=== PATIENT | female | born 1975 | race Caucasian/White ===

== ENCOUNTER 2018-09-17 19:59 | Inpatient (IN) | payer MEDICAID, SELFPAY ==
[2018-09-17 20:04] VITALS: BP 120/76; PULSE 101; RESP 18; TEMP 35; O2SAT 96
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
[2018-09-17 20:32] LABS: Abs Immature Grans 0.03 k/cumm (0.0-0.09); HCT 39.4 % (36.0-46.0); HGB 12.3 g/dL (12.0-15.5); Mean Corp. HGB Concentration 31.2 g/dL (32.0-36.0); Mean Corpuscular Hemoglobin 23.9 pg (27.0-33.0); Mean Corpuscular Volume 76.5 fL (80-95); Platelet Count 359 x1000/uL (130-400); RBC 5.15 m/cumm (4.00-5.20); RBC Distribution Width 18.8 % (11.7-14.6); White Blood Cell Count 8.86 k/cumm (4.4-10.8)
[2018-09-17 20:49] LABS: ALT 37 U/L (12-78); AST 30 U/L (15-37); Albumin 3.6 g/dL (3.4-5.0); Alkaline Phosphatase 106 U/L (46-116); Anion Gap 12.9 mmol/L (3-11); BUN 14 mg/dL (7-18); Bilirubin, Total 0.3 mg/dL (0.2-1.0); CO2 25.1 mmol/L (21.0-32.0); CREATININE 1.04 mg/dL (0.55-1.02); Calcium 8.8 mg/dL (8.5-10.1); Chloride 104 mmol/L (98-107); Glucose 144 mg/dL (70-100); Sodium 142 mmol/L (136-145); TSH (W/Ref FT4) 3.27 uIU/mL (0.358-3.74)
[2018-09-17 20:51] LABS: Potassium 2.8 mmol/L (3.5-5.1)
[2018-09-17] MEDS: POTASSIUM CHLORIDE 20 MEQ/100 ML BAG 50 MEQ IVPB ×2 (21:08→23:09)
[2018-09-17] MEDS: diphenhydrAMINE 50 MG/ML VIAL 25 MG IVP (21:09)
[2018-09-17] MEDS: Potassium Chloride 10 MEQ TABCR 20 MEQ PO (21:09)
[2018-09-17 21:12] LABS: Absolute Eosinophil Count 0.09 k/cumm (0.0-0.7); Absolute Lymphocyte Count 2.57 k/cumm (1.2-3.4); Absolute Monocyte Count 0.18 k/cumm (0.11-0.7); Absolute Neutrophil Count 6.02 k/cumm (1.2-6.7); Atypical Lymphocytes % 4; Salicylate 4.5 mg/dL (2.8-20.0)
[2018-09-17 21:15] LABS: Diff Comment Manual Differential; RBC Morphology Normal
[2018-09-17] MEDS: Normal Saline 1,000 ML 150 ML IV (21:15)
[2018-09-17 21:17] LABS: ETHANOL BLOOD < 3.0 mg/dL (<3)
[2018-09-17 21:19] LABS: Acetaminophen < 2 ug/mL (10-30)
--- NOTE | 2018-09-17 22:19 | DI.CT_ITS ---
SYMPTOMS/DIAGNOSIS: ALTERED MENTATION NONCONTRAST HEAD CT: No intracranial hemorrhage, mass or infarct is seen. The ventricles are normal in size. There is mucosal thickening of ethmoid sinuses and some mucosal thickening within the left nasal cavity. The mastoid air cells appear clear. IMPRESSION: Sinus disease. No acute abnormality.
--- NOTE | 2018-09-17 22:23 | PDOC.ERCMPRO ---
Care Management Progress Note [facility] Participants: Jose; MARC, Estelle; NS, Jennyfer; [facility], Danielle; STEVEN. Date and time: 09/17/18@ 2150. INVOLUNTARY FOR INPATIENT PSYCHIATRIC STABILIZATION. Malu is presenting with behavior consistent with acute psychosis per MD-please refer to his note for further information. She is either confused or sedated when CM attempts to meet with her. She requires stimulation to open her eyes, she smiles and is pleasant. When asked if she knows how she arrived to [facility] she states [facility]? when asked to state where she is she reports confidently [place], and smiles. She reports feeling tired; CM agrees to engage with Malu in the morning and permits her to rest. Per chart review and [facility] report, Malu has no known MH services or previous diagnosis. Per MD report, Malu does struggle with depression and was recently prescribed new medication; Cymbalta. She will require ongoing work up including urine analysis, and head CT. Per RN: Jose, Malu presents as lacking nutrition for a few days which is consistent with her SO's report that she has been paranoid and delusional for the last few days and has remained in her room. She is currently being treated with IV and oral potassium replacement per Rosa TRAN. CM will continue to follow. Due to inability of patient engagement, safety plan has been established with care team, to adhere to patient goals, identify restrictions based on behavioral status, address nutrition, and determine allowed personal belongings, tools for hygiene and personal care. Determine level of activity including ambulation, level of supervision, visitors, and determine privileges based on behaviors and level of engagement by pt. SAFETY PLAN: 1. Will remain on suicide precautions and in Paper Clothes 2. Will remain in room under direct supervision of one-on-one staff at all times provided by JORDON, MARY senior cobol developer. 3. May have paper cups, plates, finger foods. 4. Follow [facility] Management of the Admitted Behavioral Health Patient policy. 5. Comfort bath system only. 6. No personal belongings 7. No Visitors-notably her SO Dakota has been directed not to visit at this time as per report, his presence has resulted in increased patient agitation. 8. No incoming or outgoing phone contact at this time. 9. Bathroom privileges: may use bathroom with staff escort. Placement: Per Dr. Prasons and Jennyfer of [facility], once Malu is deemed medically cleared, EE paperwork will be submitted. Malu is currently here involuntarily and is unable to meaningfully engage due to new onset of psychosis of unknown origin at this time. CM will continue to follow and support safety planning considerations as well as re-assess patient as appropriate. Patient is currently involuntarily at [facility] and will require further monitoring and assessment. [facility] Frontline Patrol Police Sergeant will continue seeking placement and supporting coordination of first and second certification. Please contact the Rn Plastic Surgery Rod Placer ([phone]) and [facility] Patrol Police Sergeant ([phone]) for any needed changes in the Safety Plan. Safety plan has been provided to interdepartmental care team including Clinical Coordinator, Nursing [employer].
--- NOTE | 2018-09-17 22:26 | DI.VRAD_ITS ---
EXAM: CT Head Without Contrast EXAM DATE/TIME: 09/17/2018 10:19 PM CLINICAL HISTORY: 42 years old, female; Signs and symptoms; Altered mental status/memory loss; Other: N/a; Patient HX: Altered mentation TECHNIQUE: Axial computed tomography images of the head/brain without contrast. All CT scans at this facility use at least one of these dose optimization techniques: automated exposure control; mA and/or kV adjustment per patient size (includes targeted exams where dose is matched to clinical indication); or iterative reconstruction. Coronal and sagittal reformatted images were created and reviewed. COMPARISON: No relevant prior studies available. FINDINGS: Brain: No hemorrhage. No significant white matter disease. No edema. Ventricles: No ventriculomegaly. Bones/joints: No acute fracture. Sinuses: Mild ethmoid sinus disease. Mastoid air cells: No mastoid effusion. Soft tissues: No suspicious lesions. IMPRESSION: 1. No acute intracranial findings. 2. Mild ethmoid sinus disease. Dictated and Authenticated by: Anupama Marques MD. Ordering:KELLY LAN MD
--- NOTE | 2018-09-17 22:39 | CMPROGNOTE_ITS ---
Care Management Progress Note [facility] Participants: Jose; MARC, Estelle; NS, Jennyfer; [facility], Danielle; STEVEN. Date and time: 09/17/18@ 2150. INVOLUNTARY FOR INPATIENT PSYCHIATRIC STABILIZATION. Malu is presenting with behavior consistent with acute psychosis per MD- please refer to his note for further information. She is either confused or sedated when CM attempts to meet with her. She requires stimulation to open her eyes, she smiles and is pleasant. When asked if she knows how she arrived to [facility] she states [facility]? when asked to state where she is she reports confidently [place], and smiles. She reports feeling tired; CM agrees to engage with Malu in the morning and permits her to rest. Per chart review and [facility] report, Malu has no known MH services or previous diagnosis. Per MD report, Malu does struggle with depression and was recently prescribed new medication; Cymbalta. She will require ongoing work up including urine analysis , and head CT. Per RN: Jose, Malu presents as lacking nutrition for a few days which is consistent with her SO's report that she has been paranoid and delusional for the last few days and has remained in her room. She is currently being treated with IV and oral potassium replacement per Rosa TRAN. CM will continue to follow. Due to inability of patient engagement, safety plan has been established with care team, to adhere to patient goals, identify restrictions based on behavioral status, address nutrition, and determine allowed personal belongings , tools for hygiene and personal care. Determine level of activity including ambulation, level of supervision, visitors, and determine privileges based on behaviors and level of engagement by pt. SAFETY PLAN: 1. Will remain on suicide precautions and in Paper Clothes 2. Will remain in room under direct supervision of one-on-one staff at all times provided by JORDON, MARY home performance laborer. 3. May have paper cups, plates, finger foods. 4. Follow [facility] Management of the Admitted Behavioral Health Patient policy. 5. Comfort bath system only. 6. No personal belongings 7. No Visitors-notably her SO Dakota has been directed not to visit at this time as per report, his presence has resulted in increased patient agitation. 8. No incoming or outgoing phone contact at this time. 9. Bathroom privileges: may use bathroom with staff escort. Placement: Per Dr. Parsons and Jennyfer of [facility], once Malu is deemed medically cleared, EE paperwork will be submitted. Malu is currently here involuntarily and is unable to meaningfully engage due to new onset of psychosis of unknown origin at this time. CM will continue to follow and support safety planning considerations as well as re-assess patient as appropriate. Patient is currently involuntarily at [facility] and will require further monitoring and assessment. [facility] Frontline Screen Handler will continue seeking placement and supporting coordination of first and second certification. Please contact the Coding Manager Sane Rn ([phone]) and [facility] Screen Handler ([phone]) for any needed changes in the Safety Plan. Safety plan has been provided to interdepartmental care team including Clinical Coordinator, Nursing Consultant Internship.
[2018-09-17 23:06] LABS: Bilirubin Small (Negative); Blood Negative (Negative); Clarity Sl Cloudy; Glucose Negative (Negative); Ketones 80 mg/dL (Negative); Leukocyte Esterase Negative (Negative); Nitrite Negative (Negative); Specific Gravity 1.025 (1.005-1.025); Urobilinogen 0.2 EU/dL (Up TO 0.2)
[2018-09-17 23:14] LABS: Bacteria Moderate HPF (Negative); C & S Indicated? No/Sq. Contamination; Casts Negative LPF (Negative); Crystals Moderate Amorphous HPF (Negative); Epithelial Cells Many HPF (Negative); Mucus Heavy (Negative)
--- NOTE | 2018-09-17 23:17 | NUR.NOTE ---
Nursing Note: Patient calm and cooperative throughout care. Pt. to CT with this process description writer with no issues. Patient up to bathroom without issue. Patient asking appropriate questions. --Jose TRAN
[2018-09-17 23:20] LABS: *AMPHETAMINES SCREEN URINE Negative (Negative); *BARBITURATES SCREEN URINE Negative (Negative); *BENZODIAZEPINES SCREEN URINE POSITIVE (Negative); Cannabinoids THC POSITIVE (Negative); Cocaine Screen,Urine Negative (Negative); METHADONE URINE SCREEN Negative (Negative); OPIATES URINE SCREEN Negative (Negative)
[2018-09-17 23:21] LABS: Tricyclic Antidepressants Negative (Negative)
--- NOTE | 2018-09-17 23:45 | PDOC.MHCN ---
Mental Health Crisis Note Presenting Issue How did you arrive at the ED and why did you come: Patient arrives at the ED via ambulance due to a possible psychotic episode. Precipitating Factors Patient denies SI/HI. She is confused, denies having children and reports living alone but she in fact lives with her 14 year old son and her boyfriend. She also denies any medical issues but hospital records show that she has asthma and a lung condition. Disposition BEHAVIOR: Cooperative. EYE CONTACT: Poor - keeps eyes closed through most of the evaluation. MOOD: Calm. AFFECT: Congruent to mood. APPETITE: Reports poor appetite - has not eaten in the past 24-hours due to locking herself in her bedroom and refusing to come out. SLEEP(trouble falling/staying asleep: Reports poor sleep. Plan Patient is placed on EE status due to her level of confusion. There are no psych beds available this evening. She will therefore remain at [facility] while [facility] continues to seek a placement.
--- NOTE | 2018-09-17 23:50 | PDOC.MHCN_ITS ---
Mental Health Crisis Note Presenting Issue How did you arrive at the ED and why did you come: Patient arrives at the ED via ambulance due to a possible psychotic episode. Precipitating Factors Patient denies SI/HI. She is confused, denies having children and reports living alone but she in fact lives with her 14 year old son and her boyfriend. She also denies any medical issues but hospital records show that she has asthma and a lung condition. Disposition BEHAVIOR: Cooperative. EYE CONTACT: Poor - keeps eyes closed through most of the evaluation. MOOD: Calm. AFFECT: Congruent to mood. APPETITE: Reports poor appetite - has not eaten in the past 24-hours due to locking herself in her bedroom and refusing to come out. SLEEP(trouble falling/staying asleep: Reports poor sleep. Plan Patient is placed on EE status due to her level of confusion. There are no psych beds available this evening. She will therefore remain at [facility] while [facility] continues to seek a placement.
[2018-09-18 00:39] VITALS: BP 113/80; PULSE 86; RESP 16; TEMP 36.7; O2SAT 95
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
[2018-09-18] MEDS: Enoxaparin 40 MG/0.4 ML SYR SC (02:21)
[2018-09-18 05:20] VITALS: BP 125/86; PULSE 76; RESP 16; TEMP 36.8; O2SAT 96
[2018-09-18 07:01] LABS: Abs Immature Grans 0.01 k/cumm (0.0-0.09); Absolute Basophil Count 0.03 k/cumm (0.0-0.2); Absolute Eosinophil Count 0.46 k/cumm (0.0-0.7); Absolute Lymphocyte Count 2.04 k/cumm (1.2-3.4); Absolute Monocyte Count 0.62 k/cumm (0.11-0.7); Absolute Neutrophil Count 2.94 k/cumm (1.2-6.7); Basophils % 0.5; Eosinophils % 7.5; HCT 37.4 % (36.0-46.0); HGB 11.3 g/dL (12.0-15.5); Immature Grans % 0.2; Lymphocytes % 33.4; Mean Corp. HGB Concentration 30.2 g/dL (32.0-36.0); Mean Corpuscular Hemoglobin 23.5 pg (27.0-33.0); Mean Corpuscular Volume 77.9 fL (80-95); Mean Platelet Volume 10.1 fL (8.0-11.0); Monocytes % 10.2; Neutrophils % 48.2; Platelet Count 343 x1000/uL (130-400); RBC Distribution Width 18.9 % (11.7-14.6)
[2018-09-18 07:21] LABS: Anion Gap 8.1 mmol/L (3-11); BUN 9 mg/dL (7-18); CO2 25.9 mmol/L (21.0-32.0); CREATININE 0.73 mg/dL (0.55-1.02); Calcium 8.1 mg/dL (8.5-10.1); Chloride 109 mmol/L (98-107); Glucose 146 mg/dL (70-100); Magnesium 1.8 mg/dL (1.8-2.4); Potassium 3.5 mmol/L (3.5-5.1); Sodium 143 mmol/L (136-145)
[2018-09-18 07:24] LABS: Anisocytosis 1+; Diff Comment RBC Morph Reviewed; Hypochromasia 2+; Microcytosis 1+
[2018-09-18 07:44] LABS: Hemoglobin A1C 6.7 % (4.5-6.2)
[2018-09-18 07:48] LABS: Folate 8.5 ng/mL (8.6-20.0); Vitamin B12 597 pg/mL (193-986)
--- NOTE | 2018-09-18 11:25 | NUR.NOTE ---
Nursing Note: 1120: pt has been interactive today with this RN. pt making good eye contact and is agreeable to speaking with RN. pt is alert/oriented x 3 during assessment. RN asks pt if she knows why she is in the hospital; pt states yes. RN asks pt if she would discuss it with the RN. pt withdraws from conversation. RN asks pt if she wants to talk about what brought her here, pt states no. pt declines breakfast this morning, pt is drinking fluids well. pt has IV with running fluids at this time. pt has allowed lab draws, is voiding independently. pt has cpso at the bedside. continue to monitor.
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
--- NOTE | 2018-09-18 12:22 | PDOC.CMPRO ---
Care Management Progress Note [facility] Participants: Isabella; MARC, Milagros; CONCEPCIÓN, Yaima; [facility], Junaid HARRIS. Date and time: 09/18/18@ 1115. INVOLUNTARY FOR INPATIENT PSYCHIATRIC STABILIZATION. Malu was pleasant in interaction but remains confused. When asked to verbalize her understanding of her admission, Malu responded with well, I guess I broke. She reports wanting to see her but giggles inappropriately for a period of time at the fact that she can not remember his name. She is pleasant in interaction and smiles often. She requests visitor approval for her and son; this is not in line with requests with other staff including [facility] crisis screener. She shared that she had been hospitalized before when she was [age] and discharged to a foster home managed through [facility]. Yaima of [facility] will follow up on this information. [facility] formerly reported no previous patient attachment. When asked, Malu reports enjoying music, and creating crafts with her hands as well as spending time outside. She is repeatedly unable to verbalize her 's name and finally reports his name as Adriel. And speaks in length about how much she loves his name. (His name is Dakota). Malu reports she does not drive and lives in [place]. She reports feeling better when asked. Safety plan has been established with care team, to adhere to patient goals, identify restrictions based on behavioral status, address nutrition, and determine allowed personal belongings, tools for hygiene and personal care. Determine level of activity including ambulation, level of supervision, visitors, and determine privileges based on behaviors and level of engagement by pt. SAFETY PLAN: 1. Will remain on suicide precautions and in Paper Clothes 2. Will remain in room under direct supervision of one-on-one staff at all times provided by JORDON, MARY humanities coordinator. 3. May have paper cups, plates, finger foods. 4. Follow [facility] Management of the Admitted Behavioral Health Patient policy. 5. Comfort bath system only. 6. No personal belongings 7. No Visitors-notably her SO Dakota has been directed not to visit at this time as per report, his presence has resulted in increased patient agitation. 8. No incoming or outgoing phone contact at this time. 9. Bathroom privileges: may use bathroom with staff escort. 10. Patient may have manipulatives to encourage regulation including stress ball, coloring materials (no sharps), and music at RN discretion. Placement: Updated clinicals faxed to [facility] Efficiency Expert, [facility]. Malu remains involuntarily as she is unable to meaningfully engage due to new onset of psychosis of unknown origin at this time. CM will continue to follow and support safety planning considerations as well as re-assess patient as appropriate. Patient is currently involuntarily at [facility] and will require further monitoring and assessment. [facility] Frontline Corporate Meeting Planner will continue seeking placement and supporting coordination of second certification. Please contact the [employer] Efficiency Expert ([phone]) and [facility] Corporate Meeting Planner ([phone]) for any needed changes in the Safety Plan. Safety plan has been provided to interdepartmental care team including Clinical Coordinator, Nursing Automotive Paint Technician.
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
--- NOTE | 2018-09-18 14:45 | CMPROGNOTE_ITS ---
Care Management Progress Note [facility] Participants: Isabella; MARC, Milagros; CONCEPCIÓN, Yaima; [facility], Junaid HARRIS. Date and time: 09/18/18@ 1115. INVOLUNTARY FOR INPATIENT PSYCHIATRIC STABILIZATION. Malu was pleasant in interaction but remains confused. When asked to verbalize her understanding of her admission, Malu responded with well, I guess I broke. She reports wanting to see her but giggles inappropriately for a period of time at the fact that she can not remember his name. She is pleasant in interaction and smiles often. She requests visitor approval for her and son; this is not in line with requests with other staff including [facility] crisis screener. She shared that she had been hospitalized before when she was [age] and discharged to a foster home managed through [facility] called [facility]. Yaima of [facility] will follow up on this information. [facility] formerly reported no previous patient attachment. When asked, Malu reports enjoying music, and creating crafts with her hands as well as spending time outside. She is repeatedly unable to verbalize her 's name and finally reports his name as Adriel. And speaks in length about how much she loves his name. (His name is Dakota). Malu reports she does not drive and lives in [place]. She reports feeling better when asked. Safety plan has been established with care team, to adhere to patient goals, identify restrictions based on behavioral status, address nutrition, and determine allowed personal belongings, tools for hygiene and personal care. Determine level of activity including ambulation, level of supervision, visitors , and determine privileges based on behaviors and level of engagement by pt. SAFETY PLAN: 1. Will remain on suicide precautions and in Paper Clothes 2. Will remain in room under direct supervision of one-on-one staff at all times provided by JORDON, MARY laborer airport maintenance. 3. May have paper cups, plates, finger foods. 4. Follow [facility] Management of the Admitted Behavioral Health Patient policy. 5. Comfort bath system only. 6. No personal belongings 7. No Visitors-notably her SO Dakota has been directed not to visit at this time as per report, his presence has resulted in increased patient agitation. 8. No incoming or outgoing phone contact at this time. 9. Bathroom privileges: may use bathroom with staff escort. 10. Patient may have manipulatives to encourage regulation including stress ball , coloring materials (no sharps), and music at RN discretion. Placement: Updated clinicals faxed to [facility] Laboratory Equipment Installer[facility]. Malu remains involuntarily as she is unable to meaningfully engage due to new onset of psychosis of unknown origin at this time. CM will continue to follow and support safety planning considerations as well as re-assess patient as appropriate. Patient is currently involuntarily at [facility] and will require further monitoring and assessment. [facility] Frontline Stretch Machine Operator will continue seeking placement and supporting coordination of second certification. Please contact the Boat Finisher Laboratory Equipment Installer ([phone]) and [facility] Stretch Machine Operator ([phone]) for any needed changes in the Safety Plan. Safety plan has been provided to interdepartmental care team including Clinical Coordinator, Nursing Master Plumber.
--- NOTE | 2018-09-18 14:51 | NUR.NOTE ---
N[facility]ing Note: [facility] sent H&P, radiology reports, ER notes per request via fax.
[2018-09-18 15:57] VITALS: BP 111/67; PULSE 96; RESP 17; TEMP 37.1; O2SAT 98
--- NOTE | 2018-09-18 18:34 | PDOC.CMPRO ---
Care Management Progress Note CM supported coordination and completion of 2nd Certification with [facility] Psychiatrist who reported she was approving 2nd Certification. Malu engaged well with the Psychiatrist and remains pleasantly confused. CM provided case pertinent information for review. CM provided 2nd Cert to Medical Artist and MH worker;
[2018-09-18 20:34] VITALS: BP 102/61; PULSE 96; RESP 18; TEMP 37.3; O2SAT 97
[2018-09-18 23:45] VITALS: BP 128/63; PULSE 82; RESP 20; TEMP 36.4; O2SAT 98
[2018-09-18] MEDS: Albuterol/Ipratropium 3 ML UPD VIAL UPD (23:45)
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
[2018-09-19 07:45] VITALS: BP 105/71; PULSE 85; RESP 16; TEMP 36.5; O2SAT 96
[2018-09-19 07:51] LABS: BUN 1 mg/dL (7-18); Calcium 8.5 mg/dL (8.5-10.1); Chloride 109 mmol/L (98-107); Glucose 112 mg/dL (70-100); Magnesium 1.7 mg/dL (1.8-2.4); Potassium 3.9 mmol/L (3.5-5.1); Sodium 144 mmol/L (136-145)
[2018-09-19] MEDS: Budesonide/Formoterol 160/4.5 6 GM 60 PUFF INH IH (07:52)
--- NOTE | 2018-09-19 09:09 | W.INMHPGNOTE ---
Date of service: 09/19/18 Time of Service: 09:09 Mental Health Crisis Note Presenting Issue How did you arrive at the ED and why did you come: Patient initially arrived at the emergency department as she was showing signs of mental health disturbances. Precipitating Factors Patient denies SI and HI. Patient does admit to audio hallucinations but states that she has not heard any recently. Patient is still denying having any children and denying having a significant other. She also still states that she lives alone with her two pets. Patient is requesting to have her glasses. Disposition BEHAVIOR: No abnormal behavior to report. The patient is laying on the hospital bed talking with this securities underwriter. Her voice is soft and monotone. EYE CONTACT: Patient makes an increased amount of eye contact from yesterdays assessment MOOD: Patient is much more responsive and is able to laugh with this securities underwriter. She is calm and cooperative. AFFECT: Appropriate for conversation APPETITE: Patient's breakfast appears to be half eaten this morning but she states that she is eating enough SLEEP(trouble falling/staying asleep: Patient states that she has been sleeping well Plan Patient will remain at the hospital on an involuntary status until an appropriate bed becomes available at a psychiatric treatment facility. Hospitals have been called: [facility] and [facility], and [place] are full, [place] is not able to accept an involuntary at this time, [place] currently has a bed available but another patient is set up to take that bed (Chantel said this securities underwriter will be called if this admission falls through). Signature Clinician's Name/Title: Yaima Barakat - [facility] Emergency Clinician
[2018-09-19] MEDS: Folic Acid 1 MG TAB PO (09:28)
[2018-09-19] MEDS: Magnesium Oxide 400 MG TAB 800 MG PO (09:28)
[2018-09-19] MEDS: Omeprazole 20 MG CAPCR 40 MG PO (09:28)
[2018-09-19] MEDS: Multivitamin TAB 1 TAB PO (09:28)
--- NOTE | 2018-09-19 09:39 | MHPN_ITS ---
Date of service: 09/19/18 Time of Service: 09:09 Mental Health Crisis Note Presenting Issue How did you arrive at the ED and why did you come: Patient initially arrived at the emergency department as she was showing signs of mental health disturbances. Precipitating Factors Patient denies SI and HI. Patient does admit to audio hallucinations but states that she has not heard any recently. Patient is still denying having any children and denying having a significant other. She also still states that she lives alone with her two pets. Patient is requesting to have her glasses. Disposition BEHAVIOR: No abnormal behavior to report. The patient is laying on the hospital bed talking with this auto service writer. Her voice is soft and monotone. EYE CONTACT: Patient makes an increased amount of eye contact from yesterdays assessment MOOD: Patient is much more responsive and is able to laugh with this auto service writer. She is calm and cooperative. AFFECT: Appropriate for conversation APPETITE: Patient's breakfast appears to be half eaten this morning but she states that she is eating enough SLEEP(trouble falling/staying asleep: Patient states that she has been sleeping well Plan Patient will remain at the hospital on an involuntary status until an appropriate bed becomes available at a psychiatric treatment facility. Hospitals have been called: [facility] and [facility], and [place] are full, [place] is not able to accept an involuntary at this time, [place] currently has a bed available but another patient is set up to take that bed (Chantel said this auto service writer will be called if this admission falls through). Signature Clinician's Name/Title: Yaima Barakat - [facility] Emergency Clinician
[2018-09-19 11:40] VITALS: BP 102/69; PULSE 84; RESP 17; TEMP 36.9; O2SAT 97
--- NOTE | 2018-09-19 11:49 | PHARADMIT ---
Addendum entered by Gertrude Pennington 09/26/18 15:45: VS okay, plt 310 spiriva handihaler changed to respimat yesterday possible bed openings today per [facility] note pt may be walked of EE status if she continues to be clear per CM note Original Note: Addendum entered by Gertrude Pennington 09/25/18 11:38: Patient remains here at [facility] until a bed is available at a psych facility VS okay, no labs no med changes so far today Original Note: Addendum entered by Gertrude Pennington 09/24/18 10:19: Patient remains here at [facility] until a bed is available at a psych facility pt appears to have some improvement in symptoms but still in need of psych eval and treatment per progress note VS okay, no labs no med changes so far today Original Note: Addendum entered by Gertrude Pennington 09/23/18 14:06: Patient remains here at [facility] until a bed is available at a psych facility BP-122/53 other VS okay, no labs no med changes so far today Original Note: Addendum entered by Kaylah Patten 09/22/18 12:29: Patient remains here at [facility] until a bed is available at [facility]. patient more clear about family members today mental health in to see pt this AM no med changes noted Awaiting placement. Original Note: Addendum entered by Maxwell Roldan III 09/21/18 11:21: Patient remains here at [facility] until a bed is available at [facility]. Patient unfamiliar with her living situation (denies children, partner, has both) VS-OK Plts-[id number] (on Lovenox) Awaiting placement. Original Note: Addendum entered by Kaylah Patten 09/20/18 12:39: Pharmacy Note Subjective involuntary for inpatient psychiatric stabilization Objective vs ok, Mag 1.7, Assessment IVF stopped, no psychiatric meds ordered at this time Plan waiting for placement Original Note: Admission Pharmacy Clinical Review Psychosis Code Status Full Code Current Weight 95.5 kg Renally Cleared and Narrow Therapeutic Index Meds Crcl ~69.83 mL/min current meds okay QTc Value / Action Taken n/a BP Control, Fever BP 105/71 afebrile Electrolytes reviewed Cl 109 mag 1.7 DVT Prophylaxis enoxaparin Opiate Usage / Scheduled Bowel Regimen Ordered no/prn Plt/SCr for Heparin / Enoxaparin plt 343 SCr 0.70 INR for Warfarin n/a H/H stable, WBC/Bands h/h 11.3/37.4 wbc 6.10 Antibiotic appropriateness n/a Cultures and Sensitivities n/a Surgical ABX d/c within 24 hr n/a DM control / Insulin Dosing BG 112 n/a Heart Failure (Check EF%) (KENYA's, B-Block, Diuretics) none IV to PO Switch n/a Home Meds Reviewed yes Home Meds Not Ordered breo ellipta (symbicort substituted for this), sertraline, triamcinolone spray Comments waiting for placement
--- NOTE | 2018-09-19 11:59 | PDOC.CMPRO ---
- If Service Date Differs Date of service: 09/19/18 Time of Service: 11:59 Care Management Progress Note [facility] Participants: Isabella; MARC, Yoly; Natacha TRAN CM; Nursing Cracking Machine Operator; Suzy; Tayler Reyes; CARIN. Date and time: 09/19/18@ 1115. INVOLUNTARY FOR INPATIENT PSYCHIATRIC STABILIZATION. Malu was pleasant in interaction and is making good eye contact. She was clear with her discussions regarding the safety plan, plans for treatment, and her medication history. Concerns had been raised regarding Malu's cymbalta prescription. She reports that her PCP, Brandee Fuchs, has started her on the medication in June but she stopped taking it in the end of July/early August due to it making it even harder for her to sleep. STEVEN spoke with Malu's daughter, Leanne, who reiterated this history. Malu reported that she slept well last night and is having no pain or discomfort. Malu's SO, Dakota, brought Malu's glasses to [facility] and they have since been delivered to Malu who is appreciative. Malu's behaviors have been appropriate with all staff as of this time. Safety plan has been established with care team, to adhere to patient goals, identify restrictions based on behavioral status, address nutrition, and determine allowed personal belongings, tools for hygiene, and personal care. Determine level of activity including ambulation, level of supervision, visitors, and determine privileges based on behaviors and level of engagement by patient. SAFETY PLAN: 1. Will remain on suicide precautions and in paper clothes 2. Will remain in room under direct supervision of one-on-one staff at all times provided by JORDON, MARY furniture and bedding inspector. 3. May have paper cups, plates, finger foods, and a spoon. 4. Follow [facility] Management of the Admitted Behavioral Health Patient policy. 5. Comfort bath system only. 6. No personal belongings with the exception of her eyeglasses. 7. No Visitors-notably her SO Dakota has been directed not to visit at this time as per report, his presence has resulted in increased patient agitation. 8. No incoming or outgoing phone contact at this time. 9. Bathroom privileges: may use bathroom with staff escort. 10. Patient may have manipulatives to encourage regulation including stress ball, coloring materials (no sharps), and music at RN discretion. Placement: updated clinicals faxed to [facility] per request. Malu remains involuntarily as she is unable to meaningfully engage due to new onset of psychosis of unknown origin at this time. CM will continue to follow and support safety planning considerations as well as re-assess patient as appropriate. Patient is currently involuntarily at [facility] and will require further monitoring and assessment. [facility] Frontline Websphere Architect will continue seeking placement and supporting coordination of second certification. Please contact the Private Branch Exchange Repairer Marketing Underwriter ([phone]) and [facility] Websphere Architect ([phone]) for any needed changes in the Safety Plan. Safety plan has been provided to interdepartmental care team including Clinical Coordinator, Nursing Cracking Machine Operator.
--- NOTE | 2018-09-19 12:08 | CMPROGNOTE_ITS ---
- If Service Date Differs Date of service: 09/19/18 Time of Service: 11:59 Care Management Progress Note Huddle Participants: Isabella; MARC, Yoly; Natacha TRAN CM; Nursing Electric Welder Helper; Suzy; Tayler Reyes; CARIN. Date and time: 09/19/18@ 1115. INVOLUNTARY FOR INPATIENT PSYCHIATRIC STABILIZATION. Malu was pleasant in interaction and is making good eye contact. She was clear with her discussions regarding the safety plan, plans for treatment, and her medication history. Concerns had been raised regarding Malu's cymbalta prescription. She reports that her PCP, Brandee Fuchs, has started her on the medication in June but she stopped taking it in the end of July/early August due to it making it even harder for her to sleep. STEVEN spoke with Malu's daughter, Leanne, who reiterated this history. Malu reported that she slept well last night and is having no pain or discomfort. Malu's SO, Dakota , brought Malu's glasses to [facility] and they have since been delivered to Malu who is appreciative. Malu's behaviors have been appropriate with all staff as of this time. Safety plan has been established with care team, to adhere to patient goals, identify restrictions based on behavioral status, address nutrition, and determine allowed personal belongings, tools for hygiene, and personal care. Determine level of activity including ambulation, level of supervision, visitors , and determine privileges based on behaviors and level of engagement by patient. SAFETY PLAN: 1. Will remain on suicide precautions and in paper clothes 2. Will remain in room under direct supervision of one-on-one staff at all times provided by JORDON, MARY sales performance manager. 3. May have paper cups, plates, finger foods, and a spoon. 4. Follow [facility] Management of the Admitted Behavioral Health Patient policy. 5. Comfort bath system only. 6. No personal belongings with the exception of her eyeglasses. 7. No Visitors-notably her SO Dakota has been directed not to visit at this time as per report, his presence has resulted in increased patient agitation. 8. No incoming or outgoing phone contact at this time. 9. Bathroom privileges: may use bathroom with staff escort. 10. Patient may have manipulatives to encourage regulation including stress ball , coloring materials (no sharps), and music at RN discretion. Placement: updated clinicals faxed to [facility] per request. Malu remains involuntarily as she is unable to meaningfully engage due to new onset of psychosis of unknown origin at this time. CM will continue to follow and support safety planning considerations as well as re-assess patient as appropriate. Patient is currently involuntarily at [facility] and will require further monitoring and assessment. [facility] Frontline Laminated Plastics Assembler And Gluer will continue seeking placement and supporting coordination of second certification. Please contact the Workers Compensation Claims Adjuster Business School Dean ([phone]) and [facility] Laminated Plastics Assembler And Gluer ([phone]) for any needed changes in the Safety Plan. Safety plan has been provided to interdepartmental care team including Clinical Coordinator, Nursing Electric Welder Helper.
--- NOTE | 2018-09-19 15:29 | CHAPLAIN ---
Malu was in bed when I visited. I introduced myself, explained my role and offered support. I let Malu know how to reach me through the nursing staff.
[2018-09-19 15:40] VITALS: BP 98/68; PULSE 78; RESP 20; TEMP 37; O2SAT 97
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
[2018-09-19] MEDS: Normal Saline Flush 10 ML SYR IVP ×3 (19:26→20:24)
[2018-09-19 19:49] VITALS: BP 103/69; PULSE 83; RESP 18; TEMP 37.3; O2SAT 97
[2018-09-19 23:37] VITALS: BP 115/69; PULSE 77; RESP 18; TEMP 36.6; O2SAT 97
[2018-09-20 03:46] VITALS: BP 108/63; PULSE 78; RESP 18; TEMP 36.8; O2SAT 98
[2018-09-20] MEDS: Albuterol 2.5 MG/3 ML INH SOLN VIAL UPD (05:57)
[2018-09-20 06:27] VITALS: RESP 1
[2018-09-20 07:35] LABS: Anion Gap 12.2 mmol/L (3-11); BUN 3 mg/dL (7-18); CO2 24.8 mmol/L (21.0-32.0); CREATININE 0.64 mg/dL (0.55-1.02); Calcium 8.5 mg/dL (8.5-10.1); Chloride 107 mmol/L (98-107); Glucose 117 mg/dL (70-100); Magnesium 1.7 mg/dL (1.8-2.4); Potassium 4.1 mmol/L (3.5-5.1); Sodium 144 mmol/L (136-145)
[2018-09-20 07:39] VITALS: BP 116/68; PULSE 74; RESP 16; TEMP 36.7; O2SAT 97
[2018-09-20] MEDS: Folic Acid 1 MG TAB PO (08:12)
[2018-09-20] MEDS: Multivitamin TAB 1 TAB PO (08:12)
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
--- NOTE | 2018-09-20 09:59 | PDOC.CMPRO ---
Care Management Progress Note Interdisciplinary Team: Isabella; MARC, Danielle; Natacha HARRIS; Nursing U.S. Representative; Alcira; NAEL, Yaima, [facility]. Date and time: 09/20/18@ 0930 INVOLUNTARY FOR INPATIENT PSYCHIATRIC STABILIZATION. Malu was sitting up in bed, freshly showered when CM met with her. She made good eye contact and communicated appropriately. Malu had the television off and shared that there was nothing that she Safety plan has been established with care team, to adhere to patient goals, identify restrictions based on behavioral status, address nutrition, and determine allowed personal belongings, tools for hygiene, and personal care. Determine level of activity including ambulation, level of supervision, visitors, and determine privileges based on behaviors and level of engagement by patient. SAFETY PLAN: 1. Will remain on suicide precautions and in paper clothes 2. Will remain in room under direct supervision of one-on-one staff at all times provided by JORDON, COMMISSIONS MANAGER making machine operator. 3. May have paper cups, plates, finger foods, and a metal spoon. 4. Follow [facility] Management of the Admitted Behavioral Health Patient policy. 5. May use shower room with staff escort. 6. No personal belongings with the exception of her eyeglasses. 7. No Visitors-notably her SO Dakota has been directed not to visit at this time as per report, his presence has resulted in increased patient agitation. 8. No incoming or outgoing phone contact at this time. 9. Patient may have manipulatives to encourage regulation including stress ball, coloring materials (no sharps), and music at RN discretion. She is also permitted television with remote. Placement: [facility]: Does not meet level one criteria, [facility]: No beds, [facility]: Updated referral sent, [facility]: Can't accomodate EE today, will call if this changes, [facility]: awaiting determination, [facility]: No beds Malu remains involuntarily as she is unable to meaningfully engage due to new onset of psychosis of unknown origin at this time. CM will continue to follow and support safety planning considerations as well as re-assess patient as appropriate. Patient is currently involuntarily at [facility] and will require further monitoring and assessment. [facility] Frontline Flyer Maker will continue seeking placement and supporting coordination of second certification. Please contact the Pediatric Oncology Nurse Supervisor Electronic Testing ([phone]) and [facility] Flyer Maker ([phone]) for any needed changes in the Safety Plan. Safety plan has been provided to interdepartmental care team including Clinical Coordinator, Nursing U.S. Representative.
--- NOTE | 2018-09-20 10:18 | CMPROGNOTE_ITS ---
Care Management Progress Note Interdisciplinary Team: Isabella; MARC, Danielle; Natacha HARRIS; Nursing Upset Operator; Alcira ; NAEL, Yaima, [facility]. Date and time: 09/20/18@ 0930 INVOLUNTARY FOR INPATIENT PSYCHIATRIC STABILIZATION. Malu was sitting up in bed, freshly showered when CM met with her. She made good eye contact and communicated appropriately. Malu had the television off and shared that there was nothing that she Safety plan has been established with care team, to adhere to patient goals, identify restrictions based on behavioral status, address nutrition, and determine allowed personal belongings, tools for hygiene, and personal care. Determine level of activity including ambulation, level of supervision, visitors , and determine privileges based on behaviors and level of engagement by patient. SAFETY PLAN: 1. Will remain on suicide precautions and in paper clothes 2. Will remain in room under direct supervision of one-on-one staff at all times provided by JORDON, COMPUTER APPLICATIONS ENGINEER informatics coordinator. 3. May have paper cups, plates, finger foods, and a metal spoon. 4. Follow [facility] Management of the Admitted Behavioral Health Patient policy. 5. May use shower room with staff escort. 6. No personal belongings with the exception of her eyeglasses. 7. No Visitors-notably her SO Dakota has been directed not to visit at this time as per report, his presence has resulted in increased patient agitation. 8. No incoming or outgoing phone contact at this time. 9. Patient may have manipulatives to encourage regulation including stress ball , coloring materials (no sharps), and music at RN discretion. She is also permitted television with remote. Placement: [facility]: Does not meet level one criteria, [facility]: No beds, [facility]: Updated referral sent, [facility]: Can't accomodate EE today, will call if this changes , [facility]: awaiting determination, [facility]: No beds Malu remains involuntarily as she is unable to meaningfully engage due to new onset of psychosis of unknown origin at this time. CM will continue to follow and support safety planning considerations as well as re-assess patient as appropriate. Patient is currently involuntarily at [facility] and will require further monitoring and assessment. [facility] Frontline Kindergarten Teacher Assistant will continue seeking placement and supporting coordination of second certification. Please contact the Mid Level Clinician Primer Charger ([phone]) and [facility] Kindergarten Teacher Assistant ([phone]) for any needed changes in the Safety Plan. Safety plan has been provided to interdepartmental care team including Clinical Coordinator, Nursing Upset Operator.
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
--- NOTE | 2018-09-20 14:29 | NUR.NOTE ---
Nursing Note: 1425: pt making good eye contact and conversation today. ambulating in room. pt eating better today in comparison to past two days. pt showered and is appreciative of this. pt remains in scrubs. pt voiding. pt moving about room ad mary. pt has 1:1 at this time. pt is enjoying watching tv and listening to music. pt agreeable to medications this am but does decline her prilosec and singulair stating I don't really think I need them today. pt states she is doing fine with not smoking at this time; pt declines the need for nicotine replacement. continue to monitor.
[2018-09-20 16:30] VITALS: BP 112/76; PULSE 67; RESP 18; TEMP 37.1; O2SAT 97
--- NOTE | 2018-09-20 18:47 | NUR.NOTE ---
Malu was sitting up in bed conversing with the prior nurse. She was not experiencing any anxiety at this time, state she like music and wanted to hear musics from [employer], same was played and patient was rocking to same. pt state she wanted to walk for this evening, same was done with sitter. STEVEN kenny patient a renetta.
[2018-09-20 19:37] VITALS: BP 126/86; PULSE 76; RESP 17; TEMP 37.6; O2SAT 96
[2018-09-20] MEDS: Magnesium Oxide 400 MG TAB PO (20:25)
[2018-09-20] MEDS: Budesonide/Formoterol 160/4.5 6 GM 60 PUFF INH IH (20:25)
[2018-09-20] MEDS: Albuterol/Ipratropium 3 ML UPD VIAL UPD (20:27)
[2018-09-20 20:57] VITALS: RESP 1
[2018-09-21 02:30] VITALS: BP 107/67; PULSE 71; RESP 18; TEMP 36.6; O2SAT 96
[2018-09-21 07:20] LABS: Platelet Count 321 x1000/uL (130-400)
[2018-09-21 08:33] VITALS: BP 108/73; PULSE 81; RESP 16; TEMP 36.2; O2SAT 95
[2018-09-21] MEDS: Folic Acid 1 MG TAB PO (09:28)
[2018-09-21] MEDS: Magnesium Oxide 400 MG TAB PO ×2 (09:28→19:55)
[2018-09-21] MEDS: Multivitamin TAB 1 TAB PO (09:28)
--- NOTE | 2018-09-21 11:01 | W.INMHPGNOTE ---
Date of service: 09/21/18 Time of Service: 11:01 Mental Health Crisis Note Presenting Issue How did you arrive at the ED and why did you come: Patient initially arrived at the emergency department for disturbances in mental health. Precipitating Factors Patient is denying both SI and HI at this time. However, the patient's cognition is impaired as she denies having any children and having a significant other. These statements are not accurate as it was confirmed that she has two biologial children and a live in boyfriend for the last 3-4 years. Patient identifies having two pets and she states that she feels like family is taking care of them. When asked more about her family she denies knowing where or who they are. Today the patient identified a a man by the name of Duc Epps. She states that he is helping her financially but does not live with her. She states that she thinks he is a friend. Disposition BEHAVIOR: No abnormal behavior to report EYE CONTACT: Good and appropriate MOOD: Calm and cooperative AFFECT: Broad APPETITE: Good SLEEP(trouble falling/staying asleep: Good Plan Patient will remain at the hospital on an involuntary status until an appropriate bed becomes available at a psychiatric treatment facility. All facilities are full at this time except [facility] but they stated that they cannot accept an involuntary at this time. Signature Clinician's Name/Title: Yaima Barakat - [facility] Emergency Clinician
--- NOTE | 2018-09-21 11:19 | MHPN_ITS ---
Date of service: 09/21/18 Time of Service: 11:01 Mental Health Crisis Note Presenting Issue How did you arrive at the ED and why did you come: Patient initially arrived at the emergency department for disturbances in mental health. Precipitating Factors Patient is denying both SI and HI at this time. However, the patient's cognition is impaired as she denies having any children and having a significant other. These statements are not accurate as it was confirmed that she has two biologial children and a live in boyfriend for the last 3-4 years. Patient identifies having two pets and she states that she feels like family is taking care of them. When asked more about her family she denies knowing where or who they are. Today the patient identified a a man by the name of Duc Epps. She states that he is helping her financially but does not live with her. She states that she thinks he is a friend. Disposition BEHAVIOR: No abnormal behavior to report EYE CONTACT: Good and appropriate MOOD: Calm and cooperative AFFECT: Broad APPETITE: Good SLEEP(trouble falling/staying asleep: Good Plan Patient will remain at the hospital on an involuntary status until an appropriate bed becomes available at a psychiatric treatment facility. All fa cilities are full at this time except [facility] but they stated that they cannot accept an involuntary at this time. Signature Clinician's Name/Title: Yaima Barakat - [facility] Emergency Clinician
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
--- NOTE | 2018-09-21 12:13 | PDOC.CMPRO ---
Care Management Progress Note Interdisciplinary Team: Bijan; MARC, Danielle; Milagros HARRIS; Nursing Crm Coordinator; Tayler; NAEL, Yaima, [facility]. Date and time: 09/21/18@ 1120 INVOLUNTARY FOR INPATIENT PSYCHIATRIC STABILIZATION. Malu remains pleasant and calm as well as appropriate in interaction. She continues to clear. Safety plan has been established with care team, to adhere to patient goals, identify restrictions based on behavioral status, address nutrition, and determine allowed personal belongings, tools for hygiene, and personal care. Determine level of activity including ambulation, level of supervision, visitors, and determine privileges based on behaviors and level of engagement by patient. SAFETY PLAN: 1. Will remain on suicide precautions and in paper clothes 2. Will remain in room under direct supervision of one-on-one staff at all times provided by JORDON, MARY cork insulator helper. 3. May have paper cups, plates, finger foods, and a metal spoon. 4. Follow [facility] Management of the Admitted Behavioral Health Patient policy. 5. May use shower room with staff escort. 6. No personal belongings with the exception of her eyeglasses. 7. No Visitors-notably her SO Dakota has been directed not to visit at this time as per report, his presence has resulted in increased patient agitation. 8. No incoming or outgoing phone contact at this time. 9. Patient may have manipulatives to encourage regulation including stress ball, coloring materials (no sharps), and music at RN discretion. She is also permitted television with remote. 10. Patient may ambulate outside of room; on MED/SURG with staff escort. 11. [facility] Candace permitted in room for use of music; to be in possession of CPSO/one-on-one staff at all times. Placement: No bed availability reported by Yaima of [facility]. Malu remains involuntarily per [facility] assessment. She is still unable to correctly identify her circumstances prior to admission including her family members. Patient is currently involuntarily at [facility] and will require further monitoring and assessment. [facility] Frontline Cotton Expert will continue seeking placement and supporting coordination of second certification. Please contact the [employer] Binder Coverer Desktop Specialist ([phone]) and [facility] Cotton Expert ([phone]) for any needed changes in the Safety Plan. Safety plan has been provided to interdepartmental care team including Clinical Coordinator, Nursing Crm Coordinator.
--- NOTE | 2018-09-21 12:40 | CMPROGNOTE_ITS ---
Care Management Progress Note Interdisciplinary Team: Bijan; MARC, Danielle; Milagros HARRIS; Nursing Slag Dumper; Tayler; NAEL, Yaima, [facility]. Date and time: 09/21/18@ 1120 INVOLUNTARY FOR INPATIENT PSYCHIATRIC STABILIZATION. Malu remains pleasant and calm as well as appropriate in interaction. She continues to clear. Safety plan has been established with care team, to adhere to patient goals, identify restrictions based on behavioral status, address nutrition, and determine allowed personal belongings, tools for hygiene, and personal care. Determine level of activity including ambulation, level of supervision, visitors, and determine privileges based on behaviors and level of engagement by patient. SAFETY PLAN: 1. Will remain on suicide precautions and in paper clothes 2. Will remain in room under direct supervision of one-on-one staff at all times provided by JORDON, MARY greenhouse instructor. 3. May have paper cups, plates, finger foods, and a metal spoon. 4. Follow [facility] Management of the Admitted Behavioral Health Patient policy. 5. May use shower room with staff escort. 6. No personal belongings with the exception of her eyeglasses. 7. No Visitors-notably her SO Dakota has been directed not to visit at this time as per report, his presence has resulted in increased patient agitation. 8. No incoming or outgoing phone contact at this time. 9. Patient may have manipulatives to encourage regulation including stress ball, coloring materials (no sharps), and music at RN discretion. She is also permitted television with remote. 10. Patient may ambulate outside of room; on MED/SURG with staff escort. 11. [facility] Candace permitted in room for use of music; to be in possession of CPSO/one-on-one staff at all times. Placement: No bed availability reported by Yaima of [facility]. Malu remains involuntarily per [facility] assessment. She is still unable to correctly identify her circumstances prior to admission including her family members. Patient is currently involuntarily at [facility] and will require further monitoring and assessment. [facility] Frontline Agronomy Teacher will continue seeking placement and supporting coordination of second certification. Please contact the Shipping Packer Automobile Body Worker ([phone]) and [facility] Agronomy Teacher ([phone]) for any needed changes in the Safety Plan. Safety plan has been provided to interdepartmental care team including Clinical Coordinator, Nursing Slag Dumper.
[2018-09-21 12:55] VITALS: BP 115/78; PULSE 70; RESP 16; TEMP 36.8; O2SAT 96
--- NOTE | 2018-09-21 15:17 | NUR.NOTE ---
Nursing Note: Patient states she lives alone in [place], no mention of family or SO. She is pleasant and cooperative. Picks and chooses the meds she receives. She is still being monitored with a safety care plan in place.
[2018-09-21 15:52] VITALS: BP 136/84; PULSE 64; RESP 18; TEMP 37.3; O2SAT 97
--- NOTE | 2018-09-21 17:49 | NUR.NOTE ---
Nursing Note: Patient had a monitored visitation from her adult daughter this evening. This was reported to have went well as the patient did recognize the young lady as her daughter. the visit was about 35 minutes and was pleasant the entire time. Proposed next step as proposed by the counselor from is for patient and daughter to have phone calls. I suggested he talk to case management tomorrow
[2018-09-21 19:30] VITALS: BP 121/72; PULSE 69; RESP 18; TEMP 36.8; O2SAT 97
[2018-09-21 23:34] VITALS: RESP 18; RESP 4; O2SAT 95
[2018-09-21] MEDS: Albuterol/Ipratropium 3 ML UPD VIAL UPD (23:34)
[2018-09-22] VITALS (7 sets, daily range): BP systolic 114–135; BP diastolic 70–88; PULSE 57–77; RESP 8–19; TEMP 36.3–36.9; O2SAT 96–100
--- NOTE | 2018-09-22 04:45 | NUR.NOTE ---
Nursing Note: 7P to 7A shift: Pt is AO x 3., playing cards with cadre. Copperative on nursing assessment. Refused to take puffer as scheduled at HS. At 23;35 hrs. requested to have updraft. Duoneb PRN administered, Lung sounds with wheeziness on left side posterior lobe.Rechecked after treatment was diminished throughout.Pt has occasional cough and Education provided for puffer use but has poor insight. Will follow up with RT. Call lights at reach.
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
[2018-09-22] MEDS: Budesonide/Formoterol 160/4.5 6 GM 60 PUFF INH IH ×2 (09:33→19:47)
[2018-09-22] MEDS: Multivitamin TAB 1 TAB PO (09:34)
[2018-09-22] MEDS: Magnesium Oxide 400 MG TAB PO ×2 (09:34→19:46)
[2018-09-22] MEDS: Folic Acid 1 MG TAB PO (09:34)
[2018-09-22] MEDS: Montelukast 10 MG TAB PO (09:35)
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
--- NOTE | 2018-09-22 17:17 | PDOC.CMPRO ---
Care Management Progress Note Interdisciplinary Team: Bijan; RN, Danielle; Milagros HARRIS; Nursing Nutritional Assistant; Tayler; NAEL, Yaima, DENNIS. Date and time: 09/22/18@ 1120 INVOLUNTARY FOR INPATIENT PSYCHIATRIC STABILIZATION. Malu was able to verbalize feeling uncomfortable with male patient observer and plan to use restroom. CM encouraged her self advocacy and communicated Malu's needs with the team. When Malu reports she needs to use the restroom, male staff will switch out with female staff and the door to Malu's room will be shut. Malu will use toilet behind curtain with female staff inside room with her. Malu was agreeable to this plan. She processed feeling triggered with having to plan around bathroom use and having males on the other side of the curtain. Malu ambulated through the hallways, was appropriate in interaction throughout the day and verbalized her needs appropriately. Safety plan has been established with care team, to adhere to patient goals, identify restrictions based on behavioral status, address nutrition, and determine allowed personal belongings, tools for hygiene, and personal care. Determine level of activity including ambulation, level of supervision, visitors, and determine privileges based on behaviors and level of engagement by patient. SAFETY PLAN: 1. Will remain on suicide precautions and in paper clothes 2. Will remain in room under direct supervision of one-on-one staff at all times provided by JORDON, MARY american history teacher. 3. May have paper cups, plates, finger foods, and a metal spoon. 4. Follow [facility] Management of the Admitted Behavioral Health Patient policy. 5. May use shower room with staff escort. 6. No personal belongings with the exception of her eyeglasses. 7. No Visitors-notably her SO Dakota has been directed not to visit at this time as per report, his presence has resulted in increased patient agitation. 8. No incoming or outgoing phone contact at this time. 9. Patient may have manipulatives to encourage regulation including stress ball, coloring materials (no sharps), and music at RN discretion. She is also permitted television with remote. 10. Patient may ambulate outside of room; on MED/SURG with staff escort. 11. [facility] Candace permitted in room for use of music; to be in possession of CPSO/one-on-one staff at all times. 12. Incoming phone calls from daughter/friend Leanne permitted at RN discretion. Placement: No bed availability reported by Yaima of [facility]. CM spoke with Ayah Rodrigez; [facility] Building Maintenance Custodian who reported EE beds at [facility] due to MD shortage at currently. Ayah requested CM fax referral to [facility] which was completed. Malu remains involuntarily per [facility] assessment. She is still unable to correctly identify her circumstances prior to admission including her family members. Patient is currently involuntarily at [facility] and will require further monitoring and assessment. [facility] Frontline [employer] will continue seeking placement and supporting coordination of second certification. Please contact the Rehab Nurse Building Maintenance Custodian ([phone]) and [facility] Drafter Construction ([phone]) for any needed changes in the Safety Plan. Safety plan has been provided to interdepartmental care team including Clinical Coordinator, Nursing Nutritional Assistant.
--- NOTE | 2018-09-22 17:22 | CMPROGNOTE_ITS ---
Care Management Progress Note Interdisciplinary Team: Bijan; RN, Danielle; Milagros HARRIS; Nursing Rim Turning Finisher; Tayler; NAEL, Yaima, DENNIS. Date and time: 09/22/18@ 1120 INVOLUNTARY FOR INPATIENT PSYCHIATRIC STABILIZATION. Malu was able to verbalize feeling uncomfortable with male patient observer and plan to use restroom. CM encouraged her self advocacy and communicated Malu's needs with the team. When Malu reports she needs to use the restroom, male staff will switch out with female staff and the door to Malu's room will be shut. Malu will use toilet behind curtain with female staff inside room with her. Malu was agreeable to this plan. She processed feeling triggered with having to plan around bathroom use and having males on the other side of the curtain. Malu ambulated through the hallways, was appropriate in interaction throughout the day and verbalized her needs appropriately. Safety plan has been established with care team, to adhere to patient goals, identify restrictions based on behavioral status, address nutrition, and determine allowed personal belongings, tools for hygiene, and personal care. Determine level of activity including ambulation, level of supervision, visitors, and determine privileges based on behaviors and level of engagement by patient. SAFETY PLAN: 1. Will remain on suicide precautions and in paper clothes 2. Will remain in room under direct supervision of one-on-one staff at all times provided by JORDON, MARY towel sorter. 3. May have paper cups, plates, finger foods, and a metal spoon. 4. Follow [facility] Management of the Admitted Behavioral Health Patient policy. 5. May use shower room with staff escort. 6. No personal belongings with the exception of her eyeglasses. 7. No Visitors-notably her SO Dakota has been directed not to visit at this time as per report, his presence has resulted in increased patient agitation. 8. No incoming or outgoing phone contact at this time. 9. Patient may have manipulatives to encourage regulation including stress ball, coloring materials (no sharps), and music at RN discretion. She is also permitted television with remote. 10. Patient may ambulate outside of room; on MED/SURG with staff escort. 11. [facility] Candace permitted in room for use of music; to be in possession of CPSO/one-on-one staff at all times. 12. Incoming phone calls from daughter/friend Leanne permitted at RN discretion. Placement: No bed availability reported by Yaima of [facility]. CM spoke with Ayah Rodrigez; [facility] Motor Vehicle Technician who reported EE beds at [facility] due to MD shortage at currently. Ayah requested CM fax referral to [facility] which was completed. Malu remains involuntarily per [facility] assessment. She is still unable to correctly identify her circumstances prior to admission including her family members. Patient is currently involuntarily at [facility] and will require further monitoring and assessment. [facility] Frontline Director Of Business Services will continue seeking placement and supporting coordination of second certification. Please contact the Child Nutrition Director Motor Vehicle Technician ([phone]) and [facility] Director Of Business Services ([phone]) for any needed changes in the Safety Plan. Safety plan has been provided to interdepartmental care team including Clinical Coordinator, Nursing Rim Turning Finisher.
[2018-09-23 03:19] VITALS: BP 110/77; PULSE 69; RESP 18; TEMP 36.7; O2SAT 98
[2018-09-23] MEDS: Magnesium Oxide 400 MG TAB PO ×2 (07:55→19:47)
[2018-09-23] MEDS: Folic Acid 1 MG TAB PO (07:55)
[2018-09-23] MEDS: Montelukast 10 MG TAB PO (07:55)
[2018-09-23] MEDS: Multivitamin TAB 1 TAB PO (07:55)
[2018-09-23] MEDS: Budesonide/Formoterol 160/4.5 6 GM 60 PUFF INH IH ×2 (09:04→19:47)
[2018-09-23 09:23] VITALS: BP 122/53; PULSE 74; RESP 15; TEMP 36.6; O2SAT 98
--- NOTE | 2018-09-23 12:35 | PDOC.CMPRO ---
Care Management Progress Note Interdisciplinary Team: Bijan; MARC; Tiara; STEVEN; Natacha, Nursing Creative Director; Tayler; NAEL; Yaima, [facility]; Dakota, CPSO Date and time: 09/23/18@ 1315 INVOLUNTARY FOR INPATIENT PSYCHIATRIC STABILIZATION. Malu was able to again verbalize feeling uncomfortable with male patient observer and plan to use restroom. Malu articulated that she was uncomfortable to have him even outside of the room. [facility] Fitter Mechanic revisited and confirmed that Malu was firm in her statement and started crying. If we do have any male CPSO staff assigned when Malu reports she needs to use the restroom, male staff will switch out with female staff and the door to Malu's room will be shut. Malu will use toilet behind curtain with female staff inside room with her. Malu was agreeable to this plan. She had processed feeling triggered with having to plan around bathroom use and having males on the other side of the curtain but has not been able to come to terms with her feelings. Interactions throughout the day were appropriate and she verbalized her needs. In regards to the one CPSO she simply sated it is what it is and I'mnot comfortable. Staff was reassigned.. Safety plan has been established with care team, to adhere to patient goals, identify restrictions based on behavioral status, address nutrition, and determine allowed personal belongings, tools for hygiene, and personal care. Determine level of activity including ambulation, level of supervision, visitors, and determine privileges based on behaviors and level of engagement by patient. SAFETY PLAN: 1. Will remain on suicide precautions and in paper clothes 2. Will remain in room under direct supervision of CPSO one-on-one staff at all times provided by JORDON, HYPERION ADMINISTRATOR porcelain enameling supervisor. 3. May have paper cups, plates, finger foods, and a metal spoon. 4. Follow [facility] Management of the Admitted Behavioral Health Patient policy. 5. May use shower room with staff escort. 6. No personal belongings with the exception of her eyeglasses. 7. Supervised visitation with daughter (sometimes referred to as her friend) Leanne permitted at RN discretion. [facility] Fitter Mechanic will coordinate and supervise the visit. 8. Significant Other, Dakota, has been directed not to visit at this time. His presence has resulted in increased patient agitation. 9. Patient may have manipulatives to encourage regulation including stress ball, coloring materials (no sharps), and music at RN discretion. She is also permitted television with remote. 10. Patient may ambulate outside of room; on MED/SURG with staff escort. 11. [facility] Candace permitted in room for use of music; to be in possession of CPSO/one-on-one staff at all times. 12. Incoming phone calls from daughter (sometimes referred to as her friend) Leanne permitted at RN discretion. No other incoming or outgoing calls/contact at this time. Limit calls to twice per day. Placement: No bed availability reported by Yaima of [facility]. Malu remains involuntarily per [facility] assessment. She is still unable to completely identify her circumstances prior to admission but has been improving and now remembers her daughter, Leanne. Patient is currently involuntarily at [facility] and will require further monitoring and assessment. [facility] Frontline Fitter Mechanic will continue seeking placement and supporting coordination of second certification. Please contact the Engine Tester Professional Skater ([phone]) and [facility] Fitter Mechanic ([phone]) for any needed changes in the Safety Plan. Safety plan has been provided to interdepartmental care team including Clinical Coordinator, Nursing Creative Director.
--- NOTE | 2018-09-23 12:55 | W.INMHPGNOTE ---
Date of service: 09/23/18 Time of Service: 12:55 Mental Health Crisis Note Presenting Issue How did you arrive at the ED and why did you come: Patient initially arrived at the emergency department via ambulance for disturbances in mental health. Precipitating Factors Patient is denying both SI and HI at this time. Once the patient was alone with this keno writer, she was able to express her concern about the individual that is scheduled to be her CPSO. Patient states that she feels uncomfortable with him being her sitter. Patient states that other than that she is doing well. She states that she feels safe. Disposition BEHAVIOR: No abnormal behavior to report EYE CONTACT: Patient makes good and direct eye contact MOOD: Patient is concerned AFFECT: Appropriate for conversation APPETITE: Good SLEEP(trouble falling/staying asleep: Patient states she woke up around 0300 due to her room being hot. She states that other than that she has been sleeping well and not taking naps during the day. Plan Patient will remain at the hospital on an involuntary status until a bed becomes available at an appropriate mental health treatment facility. Currently all mental health facilities are full. Signature Clinician's Name/Title: Yaima Barakat - [facility] Emergency Clinician
--- NOTE | 2018-09-23 13:04 | MHPN_ITS ---
Date of service: 09/23/18 Time of Service: 12:55 Mental Health Crisis Note Presenting Issue How did you arrive at the ED and why did you come: Patient initially arrived at the emergency department via ambulance for disturbances in mental health. Precipitating Factors Patient is denying both SI and HI at this time. Once the patient was alone with this writer technical publications, she was able to express her concern about the individual that is scheduled to be her CPSO. Patient states that she feels uncomfortable with him being her sitter. Patient states that other than that she is doing well. She states that she feels safe. Disposition BEHAVIOR: No abnormal behavior to report EYE CONTACT: Patient makes good and direct eye contact MOOD: Patient is concerned AFFECT: Appropriate for conversation APPETITE: Good SLEEP(trouble falling/staying asleep: Patient states she woke up around 0300 due to her room being hot. She states that other than that she has been sleeping well and not taking naps during the day. Plan Patient will remain at the hospital on an involuntary status until a bed becomes available at an appropriate mental health treatment facility. Currently all mental health facilities are full. Signature Clinician's Name/Title: Yaima Barakat - [facility] Emergency Clinician
--- NOTE | 2018-09-23 13:50 | CMPROGNOTE_ITS ---
Care Management Progress Note Interdisciplinary Team: Bijan; MARC; Tiara; STEVEN; Natacha, Nursing Charge Manager; Tayler; NAEL; Yaima, [facility]; Dakota, CPSO Date and time: 09/23/18@ 1315 INVOLUNTARY FOR INPATIENT PSYCHIATRIC STABILIZATION. Malu was able to again verbalize feeling uncomfortable with male patient observer and plan to use restroom. Malu articulated that she was uncomfortable to have him even outside of the room. [facility] Car Repairer Pullman revisited and confirmed that Malu was firm in her statement and started crying. If we do have any male CPSO staff assigned when Malu reports she needs to use the restroom, male staff will switch out with female staff and the door to Malu's room will be shut. Malu will use toilet behind curtain with female staff inside room with her. Malu was agreeable to this plan. She had processed feeling triggered with having to plan around bathroom use and having males on the other side of the curtain but has not been able to come to terms with her feelings. Interactions throughout the day were appropriate and she verbalized her needs. In regards to the one CPSO she simply sated it is what it is and I'mnot comfortable. Staff was reassigned.. Safety plan has been established with care team, to adhere to patient goals, identify restrictions based on behavioral status, address nutrition, and determine allowed personal belongings, tools for hygiene, and personal care. Determine level of activity including ambulation, level of supervision, visitors, and determine privileges based on behaviors and level of engagement by patient. SAFETY PLAN: 1. Will remain on suicide precautions and in paper clothes 2. Will remain in room under direct supervision of CPSO one-on-one staff at all times provided by JORDON, INTENSIVE CARE UNIT NURSE work from home. 3. May have paper cups, plates, finger foods, and a metal spoon. 4. Follow [facility] Management of the Admitted Behavioral Health Patient policy. 5. May use shower room with staff escort. 6. No personal belongings with the exception of her eyeglasses. 7. Supervised visitation with daughter (sometimes referred to as her friend) Leanne permitted at RN discretion. [facility] Car Repairer Pullman will coordinate and supervise the visit. 8. Significant Other, Dakota, has been directed not to visit at this time. His presence has resulted in increased patient agitation. 9. Patient may have manipulatives to encourage regulation including stress ball, coloring materials (no sharps), and music at RN discretion. She is also permitted television with remote. 10. Patient may ambulate outside of room; on MED/SURG with staff escort. 11. [facility] Candace permitted in room for use of music; to be in possession of CPSO/one-on-one staff at all times. 12. Incoming phone calls from daughter (sometimes referred to as her friend) Leanne permitted at RN discretion. No other incoming or outgoing calls/contact at this time. Limit calls to twice per day. Placement: No bed availability reported by Yaima of [facility]. Malu remains involuntarily per [facility] assessment. She is still unable to completely identify her circumstances prior to admission but has been improving and now remembers her daughter, Leanne. Patient is currently involuntarily at [facility] and will require further monitoring and assessment. [facility] Frontline Car Repairer Pullman will continue seeking placement and supporting coordination of second certification. Please contact the Tile Conduit Layer Viscosity Inspector ([phone]) and [facility] Car Repairer Pullman ([phone]) for any needed c hanges in the Safety Plan. Safety plan has been provided to interdepartmental care team including Clinical Coordinator, Nursing Charge Manager.
--- NOTE | 2018-09-23 14:50 | W.PM.PROGNOT ---
Date of Service Date of service: 09/23/18 Time of Service: 14:50 Assessment and Plan (1) Acute psychosis: Current visit: Yes Status: Acute Currently admitted under 1:1 observation with further evaluation by STACEY. Plan is for eventual transfer to inpatient psychiatric facility when a bed becomes available. Patient appears to have some improvement in symptoms, but psychiatric evaluation and treatment is still indicated given presentation. patient is currently awaiting placement (2) GERD (gastroesophageal reflux disease): Current visit: No Status: Acute Continue home regimen of PPI therapy. (3) Depression: Current visit: Yes Status: Chronic Currently not on any medication treatment for this. (4) Asthma: Current visit: Yes Status: Chronic History of asthma with current daily tobacco abuse, not currently symptomatic. Continue home inhaler therapy with Breo and Spiriva, Singulair, prn nebs. Support smoking cessation. (5) DVT prophylaxis: Current visit: Yes Status: Acute SC Lovenox. Subjective Patient reports: no new complaints and tolerating a regular diet; denies nausea and fever Interval history since last seen: Malu feels well, denies complaints. She denies feeling depressed or suicidal. She denies visual or auditory hallucinations. Exam Narrative Exam Narrative: General: Patient appears comfortable, AAOX3, NAD. Respiratory: Normal effort, speaking in full sentences. Psych: Normal mood and affect. Makes good eye contact and appropriately responsive to questions. Objective Objective Clinical Data: Vital Signs Temperature 36.6 C 09/23/18 09:23 Temperature Source Tympanic 09/23/18 09:23 Pulse 74 09/23/18 09:23 Pulse Rhythm Regular 09/23/18 09:24 Respiratory Rate 15 09/23/18 09:23 Respiratory Effort 09/23/18 09:24 Respiratory Depth Normal 09/23/18 09:24 Respiratory Pattern Normal 09/23/18 09:24 Blood Pressure 122/53 L 09/23/18 09:23 Pulse Oximetry 98 09/23/18 09:23 Oxygen Delivery Method Room Air 09/23/18 09:23 Oxygen Flow Rate 0 09/23/18 09:23 Pain Level 0 09/23/18 09:23 Comment 09/23/18 03:19 Intake & Output 09/22/18 09/23/18 09/23/18 23:59 11:59 23:59 Intake Total 1170 / 1670 500 / 1670 Balance 1170 / 1670 500 / 1670 Intake: Oral 1170 / 1670 500 / 1670 Other: Urine Appearance Clear Clear Comment voided Stool Size Moderate Stool Characteristics Brown Voiding Methods Toilet Toilet Laboratory Results WBC 6.10 k/cumm (4.4-10.8) D 09/18/18 06:15 RBC 4.80 m/cumm (4.00-5.20) 09/18/18 06:15 Hgb 11.3 g/dL (12.0-15.5) L 09/18/18 06:15 Hct 37.4 % (36.0-46.0) 09/18/18 06:15 MCV 77.9 fL (80-95) L 09/18/18 06:15 MCH 23.5 pg (27.0-33.0) L 09/18/18 06:15 MCHC 30.2 g/dL (32.0-36.0) L 09/18/18 06:15 RDW 18.9 % (11.7-14.6) H 09/18/18 06:15 Plt Count 321 x1000/uL (130-400) 09/21/18 06:32 MPV 10.1 fL (8.0-11.0) 09/18/18 06:15 Immature Gran % 0.2 09/18/18 06:15 Neutrophils % 48.2 09/18/18 06:15 Lymphocytes % 33.4 09/18/18 06:15 Monocytes % 10.2 09/18/18 06:15 Eosinophils % 7.5 09/18/18 06:15 Basophils % 0.5 09/18/18 06:15 Absolute Neutrophils 2.94 k/cumm (1.2-6.7) 09/18/18 06:15 Band Neutrophils 2.0 % 09/17/18 20:20 Absolute Lymphocytes 2.04 k/cumm (1.2-3.4) 09/18/18 06:15 Absolute Monocytes 0.62 k/cumm (0.11-0.7) 09/18/18 06:15 Absolute Eosinophils 0.46 k/cumm (0.0-0.7) 09/18/18 06:15 Absolute Basophils 0.03 k/cumm (0.0-0.2) 09/18/18 06:15 Differential Comment Rbc morph reviewed 09/18/18 06:15 Atypical Lymphocytes 4 09/17/18 20:20 RBC Morphology See below 09/18/18 06:15 Hypochromasia 2+ 09/18/18 06:15 Anisocytosis 1+ 09/18/18 06:15 Microcytosis 1+ 09/18/18 06:15 Sodium 144 mmol/L (136-145) 09/20/18 06:08 Potassium 4.1 mmol/L (3.5-5.1) 09/20/18 06:08 Chloride 107 mmol/L (98-107) 09/20/18 06:08 Carbon Dioxide 24.8 mmol/L (21.0-32.0) 09/20/18 06:08 Anion Gap 12.2 mmol/L (3-11) H 09/20/18 06:08 BUN 3 mg/dL (7-18) L 09/20/18 06:08 Creatinine 0.64 mg/dL (0.55-1.02) 09/20/18 06:08 Estimated GFR/1.73 m2 >= 60.00 (mL/min/1.73m2) 09/20/18 06:08 Glucose 117 mg/dL (70-100) H 09/20/18 06:08 Hemoglobin A1c 6.7 % (4.5-6.2) H 09/18/18 06:15 Calcium 8.5 mg/dL (8.5-10.1) 09/20/18 06:08 Magnesium 1.7 mg/dL (1.8-2.4) L 09/20/18 06:08 Total Bilirubin 0.3 mg/dL (0.2-1.0) 09/17/18 20:20 AST 30 U/L (15-37) 09/17/18 20:20 ALT 37 U/L (12-78) 09/17/18 20:20 Alkaline Phosphatase 106 U/L (46-116) 09/17/18 20:20 Total Protein 7.0 g/dL (6.4-8.2) 09/17/18 20:20 Albumin 3.6 g/dL (3.4-5.0) 09/17/18 20:20 Vitamin B12 597 pg/mL (193-986) 09/18/18 06:15 Folate 8.5 ng/mL (8.6-20.0) L 09/18/18 06:15 TSH 3.27 uIU/mL (0.358-3.74) 09/17/18 20:20 Urine Color Yellow (Yellow) 09/17/18 23:00 Urine Clarity Sl cloudy 09/17/18 23:00 Urine pH 6.0 (5-8) 09/17/18 23:00 Ur Specific [place] 1.025 (1.005-1.025) 09/17/18 23:00 Urine Protein 30 mg/dL (Negative) H 09/17/18 23:00 Urine Ketones 80 mg/dL (Negative) H 09/17/18 23:00 Urine Blood Negative (Negative) 09/17/18 23:00 Urine Nitrite Negative (Negative) 09/17/18 23:00 Urine Bilirubin Small (Negative) H 09/17/18 23:00 Urine Urobilinogen 0.2 EU/dL (Up TO 0.2) 09/17/18 23:00 Ur Leukocyte Esterase Negative (Negative) 09/17/18 23:00 Urine RBC 3-5 (0-2) H 09/17/18 23:00 Urine WBC 3-5 HPF (0-5) 09/17/18 23:00 Ur Epithelial Cells Many HPF (Negative) 09/17/18 23:00 Urine Crystals Moderate amorphous HPF (Negative) 09/17/18 23:00 Urine Bacteria Moderate HPF (Negative) 09/17/18 23:00 Urine Casts Negative LPF (Negative) 09/17/18 23:00 Urine Mucus Heavy (Negative) 09/17/18 23:00 Ur Culture Indicated? No/sq. contamination 09/17/18 23:00 Urine Glucose Negative mg/dL (Negative) 09/17/18 23:00 Salicylates 4.5 mg/dL (2.8-20.0) 09/17/18 20:20 Urine Opiates Screen Negative (Negative) 09/17/18 23:00 Urine Methadone Screen Negative (Negative) 09/17/18 23:00 Acetaminophen < 2 ug/mL (10-30) L 09/17/18 20:20 Ur Barbiturates Screen Negative (Negative) 09/17/18 23:00 Ur Tricyclics Screen Negative (Negative) 09/17/18 23:00 Ur Amphetamines Screen Negative (Negative) 09/17/18 23:00 U Benzodiazepines Scrn Positive (Negative) 09/17/18 23:00 Urine Cocaine Screen Negative (Negative) 09/17/18 23:00 Ur THC Screen Positive (Negative) 09/17/18 23:00 Ethyl Alcohol < 3.0 mg/dL (<3) 09/17/18 20:20
[2018-09-23 16:13] VITALS: BP 111/71; PULSE 65; RESP 16; TEMP 36.7; O2SAT 96
[2018-09-23 19:48] VITALS: BP 113/75; PULSE 64; RESP 18; TEMP 36.8; O2SAT 97
[2018-09-24 06:42] VITALS: BP 129/79; PULSE 86; RESP 18; TEMP 36.4; O2SAT 99
[2018-09-24 07:34] VITALS: BP 110/76; PULSE 67; RESP 18; TEMP 36; O2SAT 99
[2018-09-24 07:35] LABS: Platelet Count 324 x1000/uL (130-400)
[2018-09-24] MEDS: Budesonide/Formoterol 160/4.5 6 GM 60 PUFF INH IH ×2 (07:38→19:35)
[2018-09-24] MEDS: Montelukast 10 MG TAB PO (08:17)
[2018-09-24] MEDS: Folic Acid 1 MG TAB PO (08:17)
[2018-09-24] MEDS: Multivitamin TAB 1 TAB PO (08:17)
[2018-09-24] MEDS: Magnesium Oxide 400 MG TAB PO ×2 (08:17→19:35)
--- NOTE | 2018-09-24 10:59 | PDOC.MHCN ---
Mental Health Crisis Note Presenting Issue How did you arrive at the ED and why did you come: Patient remains at [facility] on involuntary status. She first came to the ER via ambulance last Monday, September 17, 2018, after having what appeared to be a dissociative episode. Precipitating Factors Patient denies SI/HI. She smiles and states she is doing good. She reports eating and sleeping well since being at [facility]. She also comments that hospital staff have been keeping her company and she is appreciative of their care. While she is pleasant and cooperative, she prefers not to answer questions and her wishes are respected. Disposition BEHAVIOR: Calm. EYE CONTACT: Good. MOOD: Reported as good. AFFECT: Guarded. APPETITE: Reported as good. SLEEP(trouble falling/staying asleep: Good, per patient. Plan There are no available [facility] beds today. Patient will, therefore, remain at [facility] on EE status while [facility] emergency services continue to seek a placement for her. A huddle is done with [facility] staff and the patient's safety plan is reviewed and revised appropriately.
--- NOTE | 2018-09-24 11:34 | PDOC.MHCN_ITS ---
Mental Health Crisis Note Presenting Issue How did you arrive at the ED and why did you come: Patient remains at [facility] on involuntary status. She first came to the ER via ambulance last Monday, September 17, 2018, after having what appeared to be a dissociative episode. Precipitating Factors Patient denies SI/HI. She smiles and states she is doing good. She reports eating and sleeping well since being at [facility]. She also comments that hospital staff have been keeping her company and she is appreciative of their care. While she is pleasant and cooperative, she prefers not to answer questions and her wishes are respected. Disposition BEHAVIOR: Calm. EYE CONTACT: Good. MOOD: Reported as good. AFFECT: Guarded. APPETITE: Reported as good. SLEEP(trouble falling/staying asleep: Good, per patient. Plan There are no available [facility] beds today. Patient will, therefore, remain at [facility] on EE status while [facility] emergency services continue to seek a placement for her. A huddle is done with [facility] staff and the patient's safety plan is reviewed and revised appropriately.
--- NOTE | 2018-09-24 11:49 | PDOC.CMPRO ---
Care Management Progress Note Interdisciplinary Team: Lam; RN; Tiara; STEVEN; Merline, Nursing Lens Edge Grinder Machine; Tayler; [facility]; Luis, [facility]; Date and time: 09/24/18@ 11:30 INVOLUNTARY FOR INPATIENT PSYCHIATRIC STABILIZATION. Malu remains comfortable with the plan and assignment of female CPSO. If we do have any male CPSO staff assigned when Malu reports she needs to use the restroom, male staff will continue to switch out with female staff and the door to Malu's room will be shut. Malu will use toilet behind curtain with female staff inside room with her. Malu was agreeable to this plan. Interactions throughout last evening and into today were appropriate and she verbalized her needs. She stilll does not seem to remember her 14 y.o. son who lives with her. Safety plan has been established with care team, to adhere to patient goals, identify restrictions based on behavioral status, address nutrition, and determine allowed personal belongings, tools for hygiene, and personal care. Determine level of activity including ambulation, level of supervision, visitors, and determine privileges based on behaviors and level of engagement by patient. SAFETY PLAN: 1. Will remain on suicide precautions and in paper clothes 2. Will remain in room under direct supervision of CPSO one-on-one staff at all times provided by JORDON, MARY in home tutor. 3. May have paper cups, plates, finger foods, and a metal spoon. 4. Follow [facility] Management of the Admitted Behavioral Health Patient policy. 5. May use shower room with staff escort. 6. No personal belongings with the exception of her eyeglasses. 7. Supervised visitation with daughter (sometimes referred to as her friend) Leanne permitted at RN discretion. [facility] will coordinate and supervise the visit. 8. Significant Other, Dakota, has been directed not to visit at this time. His presence has resulted in increased patient agitation. 9. Do not assign any CPSO named Dakota to avoid triggering negative emotional response. 10. Patient may have manipulatives to encourage regulation including stress ball, coloring materials (no sharps), and music at RN discretion. She is also permitted television with remote. 11. Patient may ambulate outside of room; on MED/SURG with staff escort. 12. [facility] Candace permitted in room for use of music; to be in possession of CPSO/one-on-one staff at all times. 13. Incoming phone calls from daughter (sometimes referred to as her friend) Leanne permitted at RN discretion. No other incoming or outgoing calls/contact at this time. Limit calls to twice per day. Placement: No bed availability reported by Yaima of [facility]. Malu remains involuntarily per [facility] assessment. She is still unable to completely identify her circumstances prior to admission but has been improving and now remembers her daughter, Leanne. Patient is currently involuntarily at [facility] and will require further monitoring and assessment. [facility] will continue seeking placement and supporting coordination of second certification. Please contact the Environmental Programs Specialist Game Tester ([phone]) and [facility] ([phone]) for any needed changes in the Safety Plan. Safety plan has been provided to interdepartmental care team including Clinical Coordinator, Nursing Lens Edge Grinder Machine.
--- NOTE | 2018-09-24 11:58 | CMPROGNOTE_ITS ---
Care Management Progress Note Interdisciplinary Team: Lam; RN; Tiara; STEVEN; Merline, Nursing Endband Sizer; Tayler; [facility]; Luis, [facility]; Date and time: 09/24/18@ 11:30 INVOLUNTARY FOR INPATIENT PSYCHIATRIC STABILIZATION. Malu remains comfortable with the plan and assignment of female CPSO. If we do have any male CPSO staff assigned when Malu reports she needs to use the restroom, male staff will continue to switch out with female staff and the door to Malu's room will be shut. Malu will use toilet behind curtain with female staff inside room with her. Malu was agreeable to this plan. Interactions throughout last evening and into today were appropriate and she verbalized her needs. She stilll does not seem to remember her 14 y.o. son who lives with her. Safety plan has been established with care team, to adhere to patient goals, identify restrictions based on behavioral status, address nutrition, and determine allowed personal belongings, tools for hygiene, and personal care. Determine level of activity including ambulation, level of supervision, visitors, and determine privileges based on behaviors and level of engagement by patient. SAFETY PLAN: 1. Will remain on suicide precautions and in paper clothes 2. Will remain in room under direct supervision of CPSO one-on-one staff at all times provided by JORDON, MARY recoating machine operator. 3. May have paper cups, plates, finger foods, and a metal spoon. 4. Follow [facility] Management of the Admitted Behavioral Health Patient policy. 5. May use shower room with staff escort. 6. No personal belongings with the exception of her eyeglasses. 7. Supervised visitation with daughter (sometimes referred to as her friend) Leanne permitted at RN discretion. [facility] Leak Detector will coordinate and supervise the visit. 8. Significant Other, Dakota, has been directed not to visit at this time. His presence has resulted in increased patient agitation. 9. Do not assign any CPSO named Dakota to avoid triggering negative emotional response. 10. Patient may have manipulatives to encourage regulation including stress ball, coloring materials (no sharps), and music at RN discretion. She is also permitted television with remote. 11. Patient may ambulate outside of room; on MED/SURG with staff escort. 12. [facility] Candace permitted in room for use of music; to be in possession of CPSO/one-on-one staff at all times. 13. Incoming phone calls from daughter (sometimes referred to as her friend) Leanne permitted at RN discretion. No other incoming or outgoing calls/contact at this time. Limit calls to twice per day. Placement: No bed availability reported by Yaima of [facility]. Malu remains involuntarily per [facility] assessment. She is still unable to completely identify her circumstances prior to admission but has been improving and now remembers her daughter, Leanen. Patient is currently involuntarily at [facility] and will require further monitoring and assessment. [facility] Frontline Leak Detector will continue seeking placement and supporting coordination of second certification. Please contact the Senior Patrol Agent Hooking Machine Operator ([phone]) and [facility] Leak Detector ([phone]) for any needed changes in the Safety Plan. Safety plan has been provided to interdepartmental care team including Clinical Coordinator, Nursing Endband Sizer.
--- NOTE | 2018-09-24 12:41 | W.PM.PROGNOT ---
Date of Service Date of service: 09/24/18 Time of Service: 12:46 Assessment and Plan (1) Acute psychosis: Current visit: Yes Status: Acute (2) GERD (gastroesophageal reflux disease): Current visit: No Status: Acute (3) Asthma: Current visit: Yes Status: Chronic (4) Smoker: Current visit: Yes Status: Acute See above, work on cessation plan prior to discharge. (5) DVT prophylaxis: Current visit: Yes Status: Acute
[2018-09-24 21:03] VITALS: BP 108/67; PULSE 68; RESP 16; TEMP 36.9; O2SAT 97
[2018-09-25] MEDS: Multivitamin TAB 1 TAB PO (08:18)
[2018-09-25] MEDS: Montelukast 10 MG TAB PO (08:18)
[2018-09-25] MEDS: Folic Acid 1 MG TAB PO (08:18)
[2018-09-25] MEDS: Magnesium Oxide 400 MG TAB PO ×2 (08:18→19:37)
[2018-09-25 08:19] VITALS: BP 111/72; PULSE 67; RESP 16; TEMP 36.8; O2SAT 98
[2018-09-25] MEDS: Budesonide/Formoterol 160/4.5 6 GM 60 PUFF INH IH ×2 (08:30→19:37)
--- NOTE | 2018-09-25 09:52 | PDOC.CMPRO ---
Care Management Progress Note Interdisciplinary Team: Danielle; STEVEN; Nursing General Ledger Accountant; Denice Elkins; MARCCC; , [facility]; Yaima Date and time: 09/25/18@ 1130 INVOLUNTARY FOR INPATIENT PSYCHIATRIC STABILIZATION. Malu remains pleasant in interaction and agreeable. She is advocating more for privileges including personal care products, utensils and clothing. She is ambulating through the hallways with CPSO often. She remains on EE status due to lack of capacity due to acute psychosis/dissociate event. Due to previous negative event Tuesday, plan remains for male staff to switch out with female staff when Malu needs to use the restroom with the door shut. Malu will use toilet behind curtain with female staff inside the room with her. Malu was agreeable to this plan. Interactions throughout last evening and into today were appropriate and she verbalized her needs. She continues to have some baseline amnesia/memory loss of her current living situation and family members. Safety plan has been established with care team, to adhere to patient goals, identify restrictions based on behavioral status, address nutrition, and determine allowed personal belongings, tools for hygiene, and personal care. Determine level of activity including ambulation, level of supervision, visitors, and determine privileges based on behaviors and level of engagement by patient. SAFETY PLAN: 1. Will remain on suicide precautions and in paper clothes. 2. Will remain in room under direct supervision of CPSO one-on-one staff at all times provided by JORDON, LIBRARY HELPER foreign student adviser. 3. May have paper cups, plates and a metal spoon. 4. Follow [facility] Management of the Admitted Behavioral Health Patient policy. 5. May use shower room with staff escort. 6. Malu may have use of her brush, toothbrush, shampoo and her eyeglasses. 7. Supervised visitation with daughter (sometimes referred to as her friend) Leanne permitted at RN discretion. [facility] Data Transcriber will coordinate and supervise the visit. 8. Significant Other, Dakota, has been directed not to visit at this time. His presence has resulted in increased patient agitation. 9. Do not assign any CPSO named Dakota to avoid triggering negative emotional response. 10. Patient may have manipulatives to encourage regulation including stress ball, coloring materials (no sharps), and music at RN discretion. She is also permitted television with remote. 11. Patient may ambulate outside of room; on MED/SURG with staff escort. 12. [facility] Candace permitted in room for use of music; to be in possession of CPSO/one-on-one staff at all times. 13. Incoming phone calls from daughter (sometimes referred to as her friend) Leanne permitted at RN discretion. No other incoming or outgoing calls/contact at this time. Limit calls to twice per day. Placement: [place]: Too acute, [place]; taking from their own ER, [facility]; Can not accommodate EE, [facility]: Full, [facility]: not acute enough, [facility]: Anticipates discharges and is reviewing for admission. Malu remains involuntarily per [facility] assessment. She is still unable to completely identify her circumstances prior to admission but has been improving and now remembers her daughter, Leanne. Patient is currently involuntarily at [facility] and will require further monitoring and assessment. [facility] Frontline Data Transcriber will continue seeking placement and supporting coordination of second certification. Please contact the [employer] ([phone]) and [facility] Data Transcriber ([phone]) for any needed changes in the Safety Plan. Safety plan has been provided to interdepartmental care team including Clinical Coordinator, Nursing General Ledger Accountant.
--- NOTE | 2018-09-25 10:02 | CMPROGNOTE_ITS ---
Care Management Progress Note Interdisciplinary Team: Danielle; STEVEN; Nursing Forensic Engineer; Denice Elkins; MARCCC; , [facility]; Yaima Date and time: 09/25/18@ 1130 INVOLUNTARY FOR INPATIENT PSYCHIATRIC STABILIZATION. Malu remains pleasant in interaction and agreeable. She is advocating more for privileges including personal care products, utensils and clothing. She is ambulating through the hallways with CPSO often. She remains on EE status due to lack of capacity due to acute psychosis/dissociate event. Due to previous negative event Tuesday, plan remains for male staff to switch out with female staff when Malu needs to use the restroom with the door shut. Malu will use toilet behind curtain with female staff inside the room with her. Malu was agreeable to this plan. Interactions throughout last evening and into today were appropriate and she verbalized her needs. She continues to have some baseline amnesia/memory loss of her current living situation and family members. Safety plan has been established with care team, to adhere to patient goals, identify restrictions based on behavioral status, address nutrition, and determine allowed personal belongings, tools for hygiene, and personal care. Determine level of activity including ambulation, level of supervision, visitors, and determine privileges based on behaviors and level of engagement by patient. SAFETY PLAN: 1. Will remain on suicide precautions and in paper clothes. 2. Will remain in room under direct supervision of CPSO one-on-one staff at all times provided by JORDON, SALESPERSON AUTOMOBILES ornament stapler. 3. May have paper cups, plates and a metal spoon. 4. Follow [facility] Management of the Admitted Behavioral Health Patient policy. 5. May use shower room with staff escort. 6. Malu may have use of her brush, toothbrush, shampoo and her eyeglasses. 7. Supervised visitation with daughter (sometimes referred to as her friend) Leanne permitted at RN discretion. [facility] Reproduction Specialist will coordinate and supervise the visit. 8. Significant Other, Dakota, has been directed not to visit at this time. His presence has resulted in increased patient agitation. 9. Do not assign any CPSO named Dakota to avoid triggering negative emotional response. 10. Patient may have manipulatives to encourage regulation including stress ball, coloring materials (no sharps), and music at RN discretion. She is also permitted television with remote. 11. Patient may ambulate outside of room; on MED/SURG with staff escort. 12. [facility] Candace permitted in room for use of music; to be in possession of CPSO/one-on-one staff at all times. 13. Incoming phone calls from daughter (sometimes referred to as her friend) Leanne permitted at RN discretion. No other incoming or outgoing calls/contact at this time. Limit calls to twice per day. Placement: [place]: Too acute, [place]; taking from their own ER, [facility]; Can not accommodate EE, [facility]: Full, [facility]: not acute enough, [facility]: Anticipates discharges and is reviewing for admission. Malu remains involuntarily per [facility] assessment. She is still unable to completely identify her circumstances prior to admission but has been improving and now remembers her daughter, Leanne. Patient is currently involuntarily at [facility] and will require further monitoring and assessment. [facility] Frontline Reproduction Specialist will continue seeking placement and supporting coordination of second certification. Please contact the Program Checker Fusing Machine Feeder ([phone]) and [facility] Reproduction Specialist ([phone]) for any needed changes in the Safety Plan. Safety plan has been provided to interdepartmental care team including Clinical Coordinator, Nursing Forensic Engineer.
--- NOTE | 2018-09-25 10:37 | W.INMHPGNOTE ---
Date of service: 09/25/18 Time of Service: 10:37 Mental Health Crisis Note Presenting Issue How did you arrive at the ED and why did you come: Patient initially arrived at the emergency department for disturbances in mental health. Precipitating Factors Patient denies current SI or HI. Patient's memory has significantly improved since admission. However, the patient's initial trigger for such behavior is still unable to be identified. Patient expresses her concern about having no contact with Dakota. Patient also expresses her concern stating that she feels as if she did nothing wrong while Dakota is out there walking around. She states that she feels as if she is going to go from one Hell to another. Patient states that Leanne brought her some of her personal belongings and would like to shower with her own bathroom toiletries and change into her own personal clothes. Disposition BEHAVIOR: No abnormal behavior to report EYE CONTACT: Patient makes direct and appropriate behavior MOOD: Calm and cooperative AFFECT: Slightly tearful APPETITE: Good SLEEP(trouble falling/staying asleep: Good Plan Patient will remain at the hospital on an involuntary status until a bed becomes available at a mental health treatment facility. Updated referral sent to [facility]. All other facilities are either full or unable to accept this patient at this time. Signature Clinician's Name/Title: Yaima Barakat - [facility] Emergency Clinician
[2018-09-25 11:20] VITALS: BP 125/80; PULSE 69; RESP 18; TEMP 36.6; O2SAT 99
--- NOTE | 2018-09-25 11:42 | MHPN_ITS ---
Date of service: 09/25/18 Time of Service: 10:37 Mental Health Crisis Note Presenting Issue How did you arrive at the ED and why did you come: Patient initially arrived at the emergency department for disturbances in mental health. Precipitating Factors Patient denies current SI or HI. Patient's memory has significantly improved since admission. However, the patient's initial trigger for such behavior is still unable to be identified. Patient expresses her concern about having no contact with Dakota. Patient also expresses her concern stating that she feels as if she did nothing wrong while Dakota is out there walking around. She states that she feels as if she is going to go from one Hell to another. Patient states that Leanne brought her some of her personal belongings and would like to shower with her own bathroom toiletries and change into her own personal clothes. Disposition BEHAVIOR: No abnormal behavior to report EYE CONTACT: Patient makes direct and appropriate behavior MOOD: Calm and cooperative AFFECT: Slightly tearful APPETITE: Good SLEEP(trouble falling/staying asleep: Good Plan Patient will remain at the hospital on an involuntary status until a bed becomes available at a mental health treatment facility. Updated referral sent to [facility]. All other facilities are either full or unable to accept this patient at this time. Signature Clinician's Name/Title: Yaima Barakat - [facility] Emergency Clinician
[2018-09-25 15:49] VITALS: BP 115/76; PULSE 72; RESP 18; TEMP 37.8; O2SAT 98
--- NOTE | 2018-09-25 17:49 | PGE_ITS ---
Date of Service Date of service: 09/25/18 Time of Service: 14:49 Assessment and Plan (1) Acute psychosis: Current visit: Yes Status: Acute Currently admitted under 1:1 observation with further evaluation by STACEY. Plan remains for eventual transfer to inpatient psychiatric facility when a bed becomes available. Patient appears to have some improvement in symptoms, but still qualifies for involuntary psychiatric admission per [facility]. Patient is currently awaiting placement (2) GERD (gastroesophageal reflux disease): Current visit: No Status: Acute Continue home regimen of PPI therapy. (3) Asthma: Current visit: Yes Status: Chronic History of asthma with current daily tobacco abuse, not currently symptomatic. Continue home inhaler therapy with Breo and Spiriva, Singulair, prn nebs. Support smoking cessation. (4) Smoker: Current visit: Yes Status: Acute See above, work on cessation plan prior to discharge. (5) DVT prophylaxis: Current visit: Yes Status: Acute SC Lovenox. Subjective Patient reports: no new complaints and tolerating a regular diet; denies nausea and fever Interval history since last seen: Malu still feels well. She feels a little more like herself. She did talk to the [facility] the skin and human services represented today, still waiting to hear about placement. Exam Narrative Exam Narrative: General: Patient appears comfortable, AAOX3, NAD. Respiratory: Normal effort, speaking in full sentences. Cardiovascular: Regular rate and rhythm, no murmurs gallops or rubs Psych: Normal mood and affect. Makes good eye contact and appropriately responsive to questions. Objective Objective Clinical Data: Vital Signs Temperature 37.8 C H 09/25/18 15:49 Temperature Source Tympanic 09/25/18 15:49 Pulse 72 09/25/18 15:49 Pulse Rhythm Regular 09/25/18 08:58 Respiratory Rate 18 09/25/18 15:49 Respiratory Effort 09/25/18 08:58 Respiratory Depth Normal 09/25/18 08:58 Respiratory Pattern Normal 09/25/18 08:58 Blood Pressure 115/76 09/25/18 15:49 Pulse Oximetry 98 09/25/18 15:49 Oxygen Delivery Method Room Air 09/25/18 15:49 Oxygen Flow Rate 0 09/25/18 15:49 Pain Level 0 09/25/18 15:49 Comment 09/23/18 03:19 Intake & Output 09/24/18 09/25/18 09/25/18 23:59 11:59 23:59 Intake Total 480 / 840 Balance 480 / 840 Weight 94 kg Intake: Oral 480 / 840 Other: Urine Color Yellow Urine Appearance Clear Clear Urine Odor Normal Stool Size Moderate Stool Characteristics Soft Formed Brown Voiding Methods Toilet Toilet Toilet Laboratory Results WBC 6.10 k/cumm (4.4-10.8) D 09/18/18 06:15 RBC 4.80 m/cumm (4.00-5.20) 09/18/18 06:15 Hgb 11.3 g/dL (12.0-15.5) L 09/18/18 06:15 Hct 37.4 % (36.0-46.0) 09/18/18 06:15 MCV 77.9 fL (80-95) L 09/18/18 06:15 MCH 23.5 pg (27.0-33.0) L 09/18/18 06:15 MCHC 30.2 g/dL (32.0-36.0) L 09/18/18 06:15 RDW 18.9 % (11.7-14.6) H 09/18/18 06:15 Plt Count 324 x1000/uL (130-400) 09/24/18 06:50 MPV 10.1 fL (8.0-11.0) 09/18/18 06:15 Immature Gran % 0.2 09/18/18 06:15 Neutrophils % 48.2 09/18/18 06:15 Lymphocytes % 33.4 09/18/18 06:15 Monocytes % 10.2 09/18/18 06:15 Eosinophils % 7.5 09/18/18 06:15 Basophils % 0.5 09/18/18 06:15 Absolute Neutrophils 2.94 k/cumm (1.2-6.7) 09/18/18 06:15 Band Neutrophils 2.0 % 09/17/18 20:20 Absolute Lymphocytes 2.04 k/cumm (1.2-3.4) 09/18/18 06:15 Absolute Monocytes 0.62 k/cumm (0.11-0.7) 09/18/18 06:15 Absolute Eosinophils 0.46 k/cumm (0.0-0.7) 09/18/18 06:15 Absolute Basophils 0.03 k/cumm (0.0-0.2) 09/18/18 06:15 Differential Comment Rbc morph reviewed 09/18/18 06:15 Atypical Lymphocytes 4 09/17/18 20:20 RBC Morphology See below 09/18/18 06:15 Hypochromasia 2+ 09/18/18 06:15 Anisocytosis 1+ 09/18/18 06:15 Microcytosis 1+ 09/18/18 06:15 Sodium 144 mmol/L (136-145) 09/20/18 06:08 Potassium 4.1 mmol/L (3.5-5.1) 09/20/18 06:08 Chloride 107 mmol/L (98-107) 09/20/18 06:08 Carbon Dioxide 24.8 mmol/L (21.0-32.0) 09/20/18 06:08 Anion Gap 12.2 mmol/L (3-11) H 09/20/18 06:08 BUN 3 mg/dL (7-18) L 09/20/18 06:08 Creatinine 0.64 mg/dL (0.55-1.02) 09/20/18 06:08 Estimated GFR/1.73 m2 >= 60.00 (mL/min/1.73m2) 09/20/18 06:08 Glucose 117 mg/dL (70-100) H 09/20/18 06:08 Hemoglobin A1c 6.7 % (4.5-6.2) H 09/18/18 06:15 Calcium 8.5 mg/dL (8.5-10.1) 09/20/18 06:08 Magnesium 1.7 mg/dL (1.8-2.4) L 09/20/18 06:08 Total Bilirubin 0.3 mg/dL (0.2-1.0) 09/17/18 20:20 AST 30 U/L (15-37) 09/17/18 20:20 ALT 37 U/L (12-78) 09/17/18 20:20 Alkaline Phosphatase 106 U/L (46-116) 09/17/18 20:20 Total Protein 7.0 g/dL (6.4-8.2) 09/17/18 20:20 Albumin 3.6 g/dL (3.4-5.0) 09/17/18 20:20 Vitamin B12 597 pg/mL (193-986) 09/18/18 06:15 Folate 8.5 ng/mL (8.6-20.0) L 09/18/18 06:15 TSH 3.27 uIU/mL (0.358-3.74) 09/17/18 20:20 Urine Color Yellow (Yellow) 09/17/18 23:00 Urine Clarity Sl cloudy 09/17/18 23:00 Urine pH 6.0 (5-8) 09/17/18 23:00 Ur Specific [place] 1.025 (1.005-1.025) 09/17/18 23:00 Urine Protein 30 mg/dL (Negative) H 09/17/18 23:00 Urine Ketones 80 mg/dL (Negative) H 09/17/18 23:00 Urine Blood Negative (Negative) 09/17/18 23:00 Urine Nitrite Negative (Negative) 09/17/18 23:00 Urine Bilirubin Small (Negative) H 09/17/18 23:00 Urine Urobilinogen 0.2 EU/dL (Up TO 0.2) 09/17/18 23:00 Ur Leukocyte Esterase Negative (Negative) 09/17/18 23:00 Urine RBC 3-5 (0-2) H 09/17/18 23:00 Urine WBC 3-5 HPF (0-5) 09/17/18 23:00 Ur Epithelial Cells Many HPF (Negative) 09/17/18 23:00 Urine Crystals Moderate amorphous HPF (Negative) 09/17/18 23:00 Urine Bacteria Moderate HPF (Negative) 09/17/18 23:00 Urine Casts Negative LPF (Negative) 09/17/18 23:00 Urine Mucus Heavy (Negative) 09/17/18 23:00 Ur Culture Indicated? No/sq. contamination 09/17/18 23:00 Urine Glucose Negative mg/dL (Negative) 09/17/18 23:00 Salicylates 4.5 mg/dL (2.8-20.0) 09/17/18 20:20 Urine Opiates Screen Negative (Negative) 09/17/18 23:00 Urine Methadone Screen Negative (Negative) 09/17/18 23:00 Acetaminophen < 2 ug/mL (10-30) L 09/17/18 20:20 Ur Barbiturates Screen Negative (Negative) 09/17/18 23:00 Ur Tricyclics Screen Negative (Negative) 09/17/18 23:00 Ur Amphetamines Screen Negative (Negative) 09/17/18 23:00 U Benzodiazepines Scrn Positive (Negative) 09/17/18 23:00 Urine Cocaine Screen Negative (Negative) 09/17/18 23:00 Ur THC Screen Positive (Negative) 09/17/18 23:00 Ethyl Alcohol < 3.0 mg/dL (<3) 09/17/18 20:20
[2018-09-25 21:33] VITALS: BP 110/67; PULSE 71; RESP 14; TEMP 36.5; O2SAT 98
[2018-09-25 23:42] VITALS: BP 98/64; PULSE 59; RESP 18; TEMP 36.8; O2SAT 98
[2018-09-26 07:00] LABS: Platelet Count 310 x1000/uL (130-400)
[2018-09-26 07:50] VITALS: BP 110/75; PULSE 61; RESP 18; TEMP 37.1; O2SAT 98
[2018-09-26] MEDS: Folic Acid 1 MG TAB PO (08:25)
[2018-09-26] MEDS: Montelukast 10 MG TAB PO (08:25)
[2018-09-26] MEDS: Multivitamin TAB 1 TAB PO (08:25)
[2018-09-26] MEDS: Magnesium Oxide 400 MG TAB PO (08:25)
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
--- NOTE | 2018-09-26 10:32 | PDOC.CMPRO ---
Care Management Progress Note 14. Malu is permitted one outfit of her own personal clothes in which to wear. Original Note: Care Management Progress Note Interdisciplinary Team: Danielle; STEVEN; Nursing Retail Shift Supervisor; Tayler Manzano; NAEL; Lam; MARC, [facility]; Yaima Date and time: 09/26/18@ 1020 INVOLUNTARY FOR INPATIENT PSYCHIATRIC STABILIZATION. Malu is verbalizing her needs more clearly. She is advocating for more privileges and speaking to her extended stay at [facility] and wanting to move on from this hospitalization. The plan remains unclear at this time. It is likely Malu will transition to psychiatric placement or discharge back to the community with a complex safety plan and close follow up. Safety plan has been established with care team, to adhere to patient goals, identify restrictions based on behavioral status, address nutrition, and determine allowed personal belongings, tools for hygiene, and personal care. Determine level of activity including ambulation, level of supervision, visitors, and determine privileges based on behaviors and level of engagement by patient. SAFETY PLAN: 1. Will remain on suicide precautions and in paper clothes. 2. Will remain in room under direct supervision of CPSO one-on-one staff at all times provided by JORDON, INSURANCE AND BENEFITS CLERK integrated logistics programs director. 3. May have paper cups, plates and a metal spoon. 4. Follow [facility] Management of the Admitted Behavioral Health Patient policy. 5. May use shower room with staff escort. 6. Malu may have use of her brush, toothbrush, shampoo and her eyeglasses. 7. Supervised visitation with daughter (sometimes referred to as her friend) Leanne permitted at RN discretion. [facility] Dye House Wheel Operator will coordinate and supervise the visit. 8. Significant Other, Dakota, has been directed not to visit at this time. His presence has resulted in increased patient agitation. 9. Do not assign any CPSO named Dakota to avoid triggering negative emotional response. 10. Patient may have manipulatives to encourage regulation including stress ball, coloring materials (no sharps), crayons, sketch paper, construction paper, silly putty, play dough, markers and music at RN discretion. She is also permitted television with remote. 11. Patient may ambulate outside of room; on MED/SURG with staff escort. 12. [facility] Candace permitted in room for use of music; to be in possession of CPSO/one-on-one staff at all times. 13. Incoming phone calls from jovita Perdomo permitted at RN discretion. No other incoming or outgoing calls/contact at this time. Limit calls to twice per day. 14. Malu is permitted on outfit of her own personal clothes in which to wear. Placement: Yaima of [facility] reports speaking with Ayah Rodrigez: [facility] who reportedly will be advocating for Malu to be accepted at [place]. Also, may have possible EE discharge today and Yaima reports Malu is first on the list for admission to . Malu continues to clear and it may be possible that the [facility] could walk her off the EE tomorrow; dependent on presentation. Yaima reports Malu would likely not be voluntary for placement. Patient is currently involuntarily at [facility] and will require further monitoring and assessment. [facility] Frontline Dye House Wheel Operator will continue seeking placement and supporting coordination of second certification. Please contact the Audience Development Manager Fire Production Operator ([phone]) and [facility] Dye House Wheel Operator ([phone]) for any needed changes in the Safety Plan. Safety plan has been provided to interdepartmental care team including Clinical Coordinator, Nursing Retail Shift Supervisor.
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
[2018-09-26 11:25] VITALS: BP 108/71; PULSE 66; RESP 18; TEMP 36.6; O2SAT 97
--- NOTE | 2018-09-26 11:32 | CMPROGNOTE_ITS ---
Care Management Progress Note 14. Malu is permitted one outfit of her own personal clothes in which to wear. Original Note: Care Management Progress Note Interdisciplinary Team: Danielle; STEVEN; Nursing Lapper; Tayler Manzano; NAEL; Lam; MARC, [facility]; Yaima Date and time: 09/26/18@ 1020 INVOLUNTARY FOR INPATIENT PSYCHIATRIC STABILIZATION. Malu is verbalizing her needs more clearly. She is advocating for more privileges and speaking to her extended stay at [facility] and wanting to move on from this hospitalization. The plan remains unclear at this time. It is likely Malu will transition to psychiatric placement or discharge back to the community with a complex safety plan and close follow up. Safety plan has been established with care team, to adhere to patient goals, identify restrictions based on behavioral status, address nutrition, and determine allowed personal belongings, tools for hygiene, and personal care. Determine level of activity including ambulation, level of supervision, visitors, and determine privileges based on behaviors and level of engagement by patient. SAFETY PLAN: 1. Will remain on suicide precautions and in paper clothes. 2. Will remain in room under direct supervision of [employer] one-on-one staff at all times provided by JORDON, DENTAL HYGIENIST coding advisor. 3. May have paper cups, plates and a metal spoon. 4. Follow [facility] Management of the Admitted Behavioral Health Patient policy. 5. May use shower room with staff escort. 6. Malu may have use of her brush, toothbrush, shampoo and her eyeglasses. 7. Supervised visitation with daughter (sometimes referred to as her friend) Leanne permitted at RN discretion. [facility] Advisor To Command In Combat will coordinate and supervise the visit. 8. Significant Other, Dakota, has been directed not to visit at this time. His presence has resulted in increased patient agitation. 9. Do not assign any CPSO named Dakota to avoid triggering negative emotional response. 10. Patient may have manipulatives to encourage regulation including stress ball, coloring materials (no sharps), crayons, sketch paper, construction paper, silly putty, play dough, markers and music at RN discretion. She is also permitted television with remote. 11. Patient may ambulate outside of room; on MED/SURG with staff escort. 12. [facility] Candace permitted in room for use of music; to be in possession of CPSO/one-on-one staff at all times. 13. Incoming phone calls from jovita Perdomo permitted at RN discretion. No other incoming or outgoing calls/contact at this time. Limit calls to twice per day. 14. Malu is permitted on outfit of her own personal clothes in which to wear. Placement: Yaima of [facility] reports speaking with Ayah Rodrigez: [facility] who reportedly will be advocating for Malu to be accepted at [facility]. Also, may have possible EE discharge today and Yaima reports Malu is first on the list for admission to . Malu continues to clear and it may be possible that the [facility] could walk her off the EE tomorrow; dependent on presentation. Yaima reports Malu would likely not be voluntary for placement. Patient is currently involuntarily at [facility] and will require further monitoring and assessment. [facility] Frontline Advisor To Command In Combat will continue seeking placement and supporting coordination of second certification. Please contact the [employer]pper Electric Motor Repairer ([phone]) and [facility] Advisor To Command In Combat ([phone]) for any needed changes in the Safety Plan. Safety plan has been provided to interdepartmental care team including Clinical Coordinator, Nursing Lapper.
[2018-09-26] MEDS: Budesonide/Formoterol 160/4.5 6 GM 60 PUFF INH IH (14:28)
--- NOTE | 2018-09-26 15:34 | PDOC.MHCN ---
Date of service: 09/26/18 Time of Service: 15:35
--- NOTE | 2018-09-26 15:41 | PDOC.MHCN_ITS ---
Date of service: 09/26/18 Time of Service: 15:36 Mental Health Crisis Note Presenting Issue How did you arrive at the ED and why did you come: Patient has been on EE status held in the Med/Surge Unit. Precipitating Factors Patient denies having any H/I or S/I. She denies having any hallucinations, delusions or depression at the current time. Disposition BEHAVIOR: Pleasant and cooperative. EYE CONTACT: Appropriate MOOD: Unremarkable AFFECT: Unremarkable APPETITE: Normal SLEEP(trouble falling/staying asleep: Normal Plan Patient is to be walked off Involuntary Status and appropriate assistance for support and housing will be put in place. Signature Clinician's Name/Title: Jm Zendejas [facility]
[2018-09-26 15:52] VITALS: BP 125/75; PULSE 66; RESP 18; TEMP 36.9; O2SAT 98
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
== END 2018-09-26 17:25 | disposition home or self-care (01) | DRG 885 ==
LOC: ER 23:16 → MS 09-18 09:42
PROVIDERS: Family Medicine; Internal Medicine; Admitting Provider Internal Medicine; Emergency Provider Student in an Organized Health Care Education/Training Program; PCP Nurse Practitioner Family; Visit Provider Internal Medicine
DX: F23 Brief psychotic disorder (principal); Z75.1 Person awaiting admission to adequate facility elsewhere; F32.9 Major depressive disorder, single episode, unspecified; E83.42 Hypomagnesemia; K21.9 Gastro-esophageal reflux disease without esophagitis; J45.909 Unspecified asthma, uncomplicated; F17.210 Nicotine dependence, cigarettes, uncomplicated
CPT/HCPCS: 36415; 80048; 80053; 80307; 94640; 96361; 96365; 96366; 96375; 99222; 99231; 99232; 99239; 99285; J1650; 70450; 80320; 80329; 81003; 81015; 82607; 82746; 83036; 83735; 84443; 85025; 85049; J1200; J3480; J7613; J7620

== ENCOUNTER 2018-11-25 13:33 | Emergency (ER) | payer MEDICAID, SELFPAY ==
--- NOTE | 2018-11-25 13:47 | NUR.NOTE ---
pt states that she has had SOB for the past 24 hrs as a result of asthma. pt has an extensive history of asthma. pt attempted to relive with albuterol to no affect and was unable to sleep as a result
[2018-11-25 13:49] VITALS: BP 124/84; PULSE 77; RESP 17; TEMP 36.4; O2SAT 95
[2018-11-25 13:54] VITALS: RESP 15
--- NOTE | 2018-11-25 14:49 | ED.GENADUL_ITS ---
Discharge Plan Disposition Patient Disposition: HOME Condition: Improving Discharge Details Chief Complaint: SOB Clinical Impression: Asthma exacerbation Primary Care Provider: Brandee Fuchs ED Provider: Ellyn Groves Home Meds and New Rx's Prescriptions: New prednisone 20 mg tablet 20 mg PO DIRECTED Qty: 12 RF: 0 azithromycin [Zithromax] 500 mg tablet 500 mg PO DAILY 5 Days Qty: 5 RF: 0 Continued Spiriva Respimat 4 GM mist 2 puff Inhalation DAILY RF: 0 albuterol sulfate 8.5 GM HFA aerosol inhaler 2 puff Inhalation Q4H PRN PRNRF: 0 triamcinolone acetonide [Nasacort] 10.8 ML aerosol,spray 2 spray Inhalation BID RF: 0 montelukast [Singulair] 10 MG tablet 10 mg PO HS RF: 0 Breo Ellipta 1 EACH blister with device 1 puff Inhalation DAILY RF: 0 albuterol sulfate 2.5 MG/3 ML solution for nebulization 2.5 mg Inhalation PRN PRNRF: 0 multivitamin [Multiple Vitamins] Tablet 1 tab PO DAILY Qty: 0 RF: 0 magnesium oxide 400 mg (241.3 mg magnesium) Tablet 400 mg PO BID Qty: 30 RF: 0 folic acid 1 mg Tablet 1 mg PO QAM Qty: 30 RF: 0 omeprazole 20 MG capsule,delayed release(DR/EC) 40 mg PO HS Qty: 0 RF: 0 Discharge Instructions Instructions: Asthma (ED) Additional Instructions: Use your albuterol inhaler and nebulizer machine as needed and directed. Take the steroids as directed until finished. If you have no improvement or worsening of symptoms in the next 2 days, you may start the antibiotics. Follow-up with primary care doctor in 1 week for reevaluation. Follow-up with your scheduled appointment with Dr. Spencer. Return immediately to the emergency department any worsening or new concerning symptoms. Discharge Data Discharge Date/Time-TO BE ENTERED AT DEPARTURE: 11/25/18 17:07 Discharge Physician: Ellyn Groves Medical Decision Making 43-year-old female with a history of asthma who presents with cough with clear sputum, chest tightness, wheezing and shortness of breath since last night. She states she feels like her asthma is triggered by allergies at home. Vitals within normal limits. O2 sat between 95% and 99% on room air. Patient appears nontoxic, speaking in full sentences, no accessory muscle use. She has diffuse wheezing and rhonchi throughout. No fever and she is non-smoker, I do not see any indication for an x-ray. Wells score low and PERC negative so low probability of PE. Patient complained of chest tightness on arrival and an EKG was done which noted a rate of 75, sinus, T wave inversion in lead III and aVF, no old EKG to compare, but no acute ST elevation or depression. Will give albuterol neb treatment and p.o. steroids and reassess. 1600 --breath sounds improved, minimal scattered wheezing.. Patient still complains of some shortness of breath. We will give 2 additional nebs and reassess. Patient states she ultimately does feel better would like to go home. 1640 --breath sounds much improved, no further wheezing noted. Patient states she feels much better and is requesting to go home. Oxygen saturation between 95 and 97% on room air. Patient had denied tobacco smoking, but told the nurse that she was smoking 2 weeks ago. Will send home with p.o. prednisone, and antibiotics start if her symptoms do not improve or worsen. She is instructed to follow-up with primary care doctor for reevaluation and return here at any time if worse. She states she has plenty of albuterol solution and inhaler at home. Medical Records Medical records reviewed: Yes I reviewed the patient's medical records. ECG Data Attestation: I personally reviewed and interpreted this ECG (s) as follows: Interpretation: Rate of 75, sinus, no acute ST elevation or depression. T wave inversion in 3 and aVF. QTc 422. QRS 94. HPI General Mode of arrival: ambulatory . Date/Time Provider Initiated Documentation: 11/25/18 14:02 . Limitations to Documentation: no limitations . Information obtained by: patient . HPI Narrative: Patient is a 43-year-old female with a history of asthma who presents with cough with clear sputum, chest tightness, shortness of breath and wheezing since last night. Patient states she used several albuterol treatments in the middle the night till this morning without relief. She states her last steroids were 2 years ago. She states she has been followed by pulmonology in the past and has an upcoming appoint with Dr. Spencer in [facility]. She denies any recent hospital admissions in the past year. She denies any history of intubations. She also denies any known fever, leg pain or swelling, recent travel, recent surgery or estrogen use. Related Data Home Medications Medication Instructions Recorded Confirmed albuterol sulfate 2 puff INHALATION Q4H PRN PRN 07/30/14 11/25/18 montelukast [Singulair] 10 mg PO HS 07/05/15 11/25/18 triamcinolone acetonide [Nasacort] 2 spray INHALATION BID 07/05/15 11/25/18 Breo Ellipta 1 puff INHALATION DAILY 01/26/16 11/25/18 Spiriva Respimat 2 puff INHALATION DAILY NS 03/13/18 11/25/18 albuterol sulfate 2.5 mg INHALATION PRN PRN 03/17/18 11/25/18 folic acid 1 mg PO QAM #30 tab 09/26/18 11/25/18 magnesium oxide 400 mg PO BID #30 tab 09/26/18 11/25/18 multivitamin [Multiple Vitamins] 1 tab PO DAILY #0 tab 09/26/18 11/25/18 omeprazole 40 mg PO HS #0 cap 09/26/18 11/25/18 azithromycin [Zithromax] 500 mg PO DAILY 5 Days #5 tab 11/25/18 prednisone 20 mg PO DIRECTED #12 tab 11/25/18 Previous Rx's Medication Instructions Recorded folic acid 1 mg PO QAM #30 tab 09/26/18 magnesium oxide 400 mg PO BID #30 tab 09/26/18 multivitamin [Multiple Vitamins] 1 tab PO DAILY #0 tab 09/26/18 omeprazole 40 mg PO HS #0 cap 09/26/18 azithromycin [Zithromax] 500 mg PO DAILY 5 Days #5 tab 11/25/18 prednisone 20 mg PO DIRECTED #12 tab 11/25/18 Allergies Allergy/AdvReac Type Severity Reaction Status Date / Time acetaminophen Allergy Severe Blisters Unverified 11/25/18 13:52 face and hands cyclobenzaprine Allergy Severe Blisters Unverified 11/25/18 13:52 hands and face hydrocodone bitartrate Allergy Severe Blisters Unverified 11/25/18 13:52 [From Vicodin] hands and face indomethacin Allergy Severe Blisters Unverified 11/25/18 13:52 hands and face environmental AdvReac Intermediate asthma Uncoded 11/25/18 13:52 exacerbation General Stated Complaint: SOB GEORGE: 3 Review of Systems Review of Systems All systems reviewed & are unremarkable except as noted in HPI and below Constitutional Reports as per HPI, Denies chills and Denies fever(s) Eyes Denies blurry vision ENT Denies dizziness, Denies sore throat and Denies throat swelling Cardiovascular Denies chest pain and Reports dyspnea Respiratory Reports cough and Reports dyspnea Gastrointestinal Denies abdominal pain, Denies diarrhea and Denies vomiting Genitourinary Denies hematuria and Denies dysuria Musculoskeletal Denies back pain and Denies numbness Integumentary/Breasts Denies lesions and Denies rash Neurologic Denies dizziness, Denies focal weakness and Denies numbness Allergic/Immunologic Denies throat swelling [facility] Medical History Asthma (Chronic) Depression (Chronic) Status asthmaticus (Resolved) CAP (community acquired pneumonia) (Resolved) Allergic rhinitis Anxiety Asthma Chronic pain Fatigue Fibromyalgia GERD (gastroesophageal reflux disease) Iron deficiency anemia Joint pain Microcytic anemia Thalassemia Surgical History History of bilateral tubal ligation (Acute) H/O section (Chronic) EGD - MAC (03/17/18) Social History household members: significant other and children lives independently: Yes Smoking and Tabacco status: Former Tobacco Use alcohol intake: never substance use type: does not use History History Para 2 Hx # Term Pregnancies Multiple births Hx # Pregnancies Ectopic pregnancies AB induced Hx Number of Living Children AB spontaneous Exam Const General: cooperative and healthy appearing Orientation: alert and awake HENMT Head: normal to inspection Ears: hearing grossly normal bilaterally, external ears normal and TM's normal bilaterally General nose exam: external nose normal Face and sinus: normal facial exam Mouth: oral mucosae normal Teeth and gingiva: dentition normal Throat: posterior oropharynx normal Eyes General: appearance normal, both eyes and all related structures Eyelids: eyelids normal Pupils: PERRL EOM: EOM intact bilaterally Neck Neck: normal visual inspection Lymphatic: no lymphadenopathy noted Chest Chest: normal inspection of the chest Resp Effort & Inspection: normal respiratory effort and able to speak in complete sentences Auscultation: rhonchi and wheezes scattered wheezes Cardio Rate: regular rate Rhythm: regular rhythm GI Inspection: normal to inspection Palpation: soft, not firm, no guarding, no hepatosplenomegaly, no masses and nontender Auscultation: normal bowel sounds Back/Spine/Pelvis Back: no CVA tenderness Skin General skin exam: no rashes or lesions noted Neuro General: alert and awake Cognition: normal cognition Speech: speech normal Gait: normal gait Motor: muscle tone normal throughout Sensory Exam: no sensory deficits noted Extrem General: normal to inspection, full ROM, normal capillary refill, no calf tenderness and no edema Psych Appearance: grossly normal Mental Status: mental status grossly normal Speech and Movement: speech and movement normal Affect: normal affect Thought Process: normal Course Vital Signs Temperature 97.5 F L 11/25/18 13:49 Pulse 77 11/25/18 13:49 Respiratory Rate 17 11/25/18 13:49 Blood Pressure 124/84 11/25/18 13:49 Pulse Oximetry 95 11/25/18 13:49 Temperature 97.5 F L 11/25/18 13:49 Temperature Source Skin 11/25/18 13:49 Pulse 77 11/25/18 13:49 Respiratory Rate 15 11/25/18 13:54 Respiratory Effort Non-Labored 11/25/18 13:54 Respiratory Depth Normal 11/25/18 13:54 Respiratory Pattern Normal 11/25/18 13:54 Blood Pressure 124/84 11/25/18 13:49 Blood Pressure Position Sitting 11/25/18 13:49 Pulse Oximetry 95 11/25/18 13:49 Oxygen Delivery Method Room Air 11/25/18 13:49 Oxygen Flow Rate 0 11/25/18 13:49 Pain Level 5 11/25/18 13:49
[2018-11-25] MEDS: Albuterol 2.5 MG/3 ML INH SOLN VIAL 5 MG UPD ×2 (15:06→16:21)
[2018-11-25] MEDS: predniSONE 20 MG TAB 60 MG PO (15:07)
== END 2018-11-25 17:07 | disposition home or self-care (01) ==
PROVIDERS: Emergency Provider Physician Assistant; PCP Nurse Practitioner Family
DX: J45.901 Unspecified asthma with (acute) exacerbation (principal); R07.9 Chest pain, unspecified
CPT/HCPCS: 93005; 94640; 99284; 93010; J7512; J7613

== ENCOUNTER 2018-12-05 18:36 | Outpatient (REF) | payer MEDICAID, SELFPAY ==
[2018-12-05 19:09] LABS: Magnesium 1.9 mg/dL (1.8-2.4)
== END 2018-12-05 18:56 ==
LOC: NCHCN 18:36
PROVIDERS: PCP Nurse Practitioner Family; Visit Provider Nurse Practitioner Family
DX: E83.42 Hypomagnesemia (principal)
CPT/HCPCS: 83735

== ENCOUNTER 2019-01-05 14:28 | Outpatient (REF) | payer MEDICAID, SELFPAY ==
[2019-01-05 18:37] LABS: Iron 13 ug/dL (50-175); Total Iron Binding Capacity 413 ug/dL (250-450); Transferrin Sat 3 % (15-50)
[2019-01-05 18:46] LABS: Abs Immature Grans 0.05 k/cumm (0.0-0.09); Absolute Monocyte Count 0.86 k/cumm (0.11-0.7); Basophils % 0.3; Eosinophils % 3.5; HCT 38.5 % (36.0-46.0); HGB 11.6 g/dL (12.0-15.5); Immature Grans % 0.3; Lymphocytes % 20.6; Mean Corp. HGB Concentration 30.1 g/dL (32.0-36.0); Mean Corpuscular Hemoglobin 22.1 pg (27.0-33.0); Mean Corpuscular Volume 73.3 fL (80-95); Mean Platelet Volume 9.7 fL (8.0-11.0); Neutrophils % 69.3; Platelet Count 497 x1000/uL (130-400); RBC 5.25 m/cumm (4.00-5.20); RBC Distribution Width 18.4 % (11.7-14.6)
[2019-01-05 18:53] LABS: Ferritin 5 ng/mL (8-388)
[2019-01-05 19:20] LABS: Folate > 20.0 ng/mL (8.6-20.0)
[2019-01-05 20:19] LABS: Absolute Basophil Count 0.04 k/cumm (0.0-0.2); Absolute Lymphocyte Count 2.97 k/cumm (1.2-3.4); Absolute Neutrophil Count 9.98 k/cumm (1.2-6.7); Anisocytosis 1+
[2019-01-05 20:20] LABS: Microcytosis 1+; Polychromasia Present
== END 2019-01-05 14:48 ==
LOC: NCHCN 14:28
PROVIDERS: PCP Nurse Practitioner Family; Visit Provider Nurse Practitioner Family
DX: D50.8 Other iron deficiency anemias (principal); J45.50 Severe persistent asthma, uncomplicated
CPT/HCPCS: 82728; 82746; 83540; 83550; 85025

== ENCOUNTER 2019-05-21 18:33 | Outpatient (REF) | payer MEDICAID, SELFPAY ==
[2019-05-21 21:49] LABS: Abs Immature Grans 0.01 k/cumm (0.0-0.09); Absolute Basophil Count 0.03 k/cumm (0.0-0.2); Absolute Eosinophil Count 0.28 k/cumm (0.0-0.7); Absolute Monocyte Count 0.55 k/cumm (0.11-0.7); Absolute Neutrophil Count 3.98 k/cumm (1.2-6.7); Basophils % 0.4; HCT 37.2 % (36.0-46.0); Immature Grans % 0.1; Lymphocytes % 30.2; Mean Corp. HGB Concentration 29.6 g/dL (32.0-36.0); Mean Corpuscular Hemoglobin 20.2 pg (27.0-33.0); Mean Corpuscular Volume 68.3 fL (80-95); Mean Platelet Volume 10.1 fL (8.0-11.0); Monocytes % 7.9; Neutrophils % 57.4; Platelet Count 467 x1000/uL (130-400); RBC 5.45 m/cumm (4.00-5.20); RBC Distribution Width 21.4 % (11.7-14.6); White Blood Cell Count 6.95 k/cumm (4.4-10.8)
[2019-05-21 22:09] LABS: ALT 24 U/L (12-78); AST 14 U/L (15-37); Albumin 3.6 g/dL (3.4-5.0); Alkaline Phosphatase 103 U/L (46-116); Anion Gap 8.2 mmol/L (3-11); BUN 6 mg/dL (7-18); Bilirubin, Total 0.3 mg/dL (0.2-1.0); CO2 24.8 mmol/L (21.0-32.0); CREATININE 0.69 mg/dL (0.55-1.02); Calcium 8.9 mg/dL (8.5-10.1); Chloride 105 mmol/L (98-107); Glucose 104 mg/dL (70-100); Potassium 4.7 mmol/L (3.5-5.1); Sodium 138 mmol/L (136-145); TSH 2.05 uIU/mL (0.36-3.74); Total Protein 6.9 g/dL (6.4-8.2)
[2019-05-21 22:28] LABS: ESR 10 mm/hr (0-20)
[2019-05-21 23:34] LABS: Anisocytosis 2+; Diff Comment RBC Morph Reviewed
[2019-05-21 23:35] LABS: Microcytosis 2+
[2019-05-21 23:36] LABS: Hypochromasia 1+; Poikilocytes 1+
[2019-05-22 21:13] LABS: CRP, High Sensitivity 2.64 mg/L
== END 2019-05-21 18:53 ==
LOC: NCHCN 18:33
PROVIDERS: PCP Nurse Practitioner Family; Visit Provider Nurse Practitioner Family
DX: D50.8 Other iron deficiency anemias (principal)
CPT/HCPCS: 80053; 85652; 86141; 83735; 84443; 85025

== ENCOUNTER 2019-05-31 11:21 | Outpatient (CLI) | payer MEDICAID, SELFPAY ==
[2019-05-31 11:54] LABS: Abs Immature Grans 0.03 k/cumm (0.0-0.09); Absolute Basophil Count 0.02 k/cumm (0.0-0.2); Absolute Eosinophil Count 0.47 k/cumm (0.0-0.7); Absolute Lymphocyte Count 2.44 k/cumm (1.2-3.4); Absolute Monocyte Count 0.59 k/cumm (0.11-0.7); Absolute Neutrophil Count 4.83 k/cumm (1.2-6.7); Basophils % 0.2; Eosinophils % 5.6; HCT 38.6 % (36.0-46.0); HGB 11.2 g/dL (12.0-15.5); Immature Grans % 0.4; Lymphocytes % 29.1; Mean Corpuscular Hemoglobin 20.7 pg (27.0-33.0); Mean Corpuscular Volume 71.5 fL (80-95); Mean Platelet Volume 9.5 fL (8.0-11.0); Neutrophils % 57.7; Platelet Count 409 x1000/uL (130-400); RBC Distribution Width 24.7 % (11.7-14.6); White Blood Cell Count 8.38 k/cumm (4.4-10.8)
[2019-05-31 12:18] LABS: Anisocytosis 3+; Diff Comment RBC Morph Reviewed; Hypochromasia 2+; Polychromasia Present
[2019-05-31 13:04] LABS: Iron 373 ug/dL (50-175); Total Iron Binding Capacity 399 ug/dL (250-450); Transferrin Sat 93 % (15-50)
[2019-05-31 13:18] LABS: Ferritin 19 ng/mL (8-388)
[2019-05-31 13:53] LABS: Poikilocytes 2+
== END 2019-05-31 11:41 ==
PROVIDERS: PCP Nurse Practitioner Family; Visit Provider Internal Medicine Hematology & Oncology
DX: D50.9 Iron deficiency anemia, unspecified (principal)
CPT/HCPCS: 36415; 82728; 83540; 83550; 85025; 85045

== ENCOUNTER 2019-06-20 15:12 | Outpatient (CLI) | payer MEDICAID, SELFPAY ==
--- NOTE | 2019-06-20 15:46 | DI.RAD_ITS ---
SYMPTOM/DIAGNOSIS: PAIN M53.3 S-I JOINTS: 06/20 Four views were obtained. The hips appear intact. No significant abnormality seen. Minimal facet arthropathy. The S-I joints are well maintained. No evidence of sacroiliitis. CONCLUSION: Negative examination of the S-I joints.
== END 2019-06-20 15:32 ==
PROVIDERS: PCP Nurse Practitioner Family; Visit Provider Nurse Practitioner Family
DX: M53.3 Sacrococcygeal disorders, not elsewhere classified (principal)
CPT/HCPCS: 72202

== ENCOUNTER 2019-07-12 02:09 | Outpatient (CLI) | payer MEDICAID, SELFPAY ==
--- NOTE | 2019-07-12 14:33 | DI.US_ITS ---
EXAM: US PELVIS AND TRANSVAGINAL CLINICAL HISTORY: PELVIC PAIN R10.2. TECHNIQUE: Pelvic ultrasound was performed transabdominally and transvaginally. COMPARISON: No exams were available for comparison FINDINGS: Please see the accompanying data sheet for measurements of the pelvic structures. Uterus is normal i n appearance with a homogeneous 4 millimeter endometrial stripe. The ovaries have a normal follicula r appearance. No free fluid identified in the cul-de-sac. Limited scanning of the kidneys is unrema rkable. IMPRESSION: Negative pelvic ultrasound. The patient reports she may have had partial right oophorectomy and the r ight ovary is smaller than the left, measuring 15 x 11 x 10 millimeters as compared to 30 x 13 x 16 m illimeters for the left ovary.
== END 2019-07-12 02:29 ==
PROVIDERS: PCP Nurse Practitioner Family; Visit Provider Nurse Practitioner Family
DX: R10.2 Pelvic and perineal pain (principal)
CPT/HCPCS: 76830; 76856

== ENCOUNTER 2019-08-01 00:55 | Outpatient (CLI) | payer MEDICAID, SELFPAY ==
[2019-08-01 16:23] LABS: Abs Immature Grans 0.01 k/cumm (0.0-0.09); Absolute Basophil Count 0.02 k/cumm (0.0-0.2); Absolute Eosinophil Count 0.37 k/cumm (0.0-0.7); Absolute Lymphocyte Count 2.16 k/cumm (1.2-3.4); Absolute Neutrophil Count 4.01 k/cumm (1.2-6.7); Basophils % 0.3; Eosinophils % 5.2; HCT 40.5 % (36.0-46.0); HGB 12.2 g/dL (12.0-15.5); Immature Grans % 0.1; Lymphocytes % 30.6; Mean Corp. HGB Concentration 30.1 g/dL (32.0-36.0); Mean Corpuscular Hemoglobin 23.1 pg (27.0-33.0); Mean Corpuscular Volume 76.9 fL (80-95); Mean Platelet Volume 9.2 fL (8.0-11.0); Monocytes % 7.1; Neutrophils % 56.7; Platelet Count 396 x1000/uL (130-400); RBC 5.27 m/cumm (4.00-5.20); RBC Distribution Width 21.6 % (11.7-14.6); Reticulocyte 0.9 % (0.5-2.4); White Blood Cell Count 7.07 k/cumm (4.4-10.8)
[2019-08-01 17:27] LABS: Iron 22 ug/dL (50-175); Total Iron Binding Capacity 410 ug/dL (250-450); Transferrin Sat 5 % (15-50)
[2019-08-01 17:44] LABS: Ferritin 4 ng/mL (8-388)
== END 2019-08-01 01:15 ==
PROVIDERS: PCP Nurse Practitioner Family; Visit Provider Internal Medicine Hematology & Oncology
DX: D50.9 Iron deficiency anemia, unspecified (principal)
CPT/HCPCS: 36415; 82728; 83540; 83550; 85025; 85045

== ENCOUNTER 2019-10-19 03:35 | Outpatient (CLI) | payer MEDICAID, SELFPAY ==
--- NOTE | 2019-10-19 14:14 | DI.MRI_ITS ---
EXAM: MR PELVIS WO CLINICAL HISTORY: SI JOINTS, SACROILIAC PAIN M53.3, WITH STIR IMAGING,. TECHNIQUE: Multiplanar multisequence MRI was performed. MRI examination of the pelvis was performed utilizing SI joint protocol including coronal and axial STIR imaging. COMPARISON: No exams were available for comparison FINDINGS: There are a few small fatty rests in the visualized bones. No signal abnormality seen associated wit h the SI joints to suggest the presence of sacroiliitis. Joints appear well maintained. No other si gnificant bony abnormality seen. No pelvic mass or adenopathy. Visualized portions of the uterus an d ovaries are unremarkable in appearance. IMPRESSION: Negative MR of the SI joints including STIR imaging.
== END 2019-10-19 03:55 ==
PROVIDERS: PCP Nurse Practitioner Family; Visit Provider Nurse Practitioner Family
DX: M53.3 Sacrococcygeal disorders, not elsewhere classified (principal)
CPT/HCPCS: 72195

== ENCOUNTER 2019-10-19 15:07 | Outpatient (CLI) | payer MEDICAID, SELFPAY ==
[2019-10-19 15:20] LABS: Abs Immature Grans 0.02 k/cumm (0.0-0.09); Absolute Basophil Count 0.05 k/cumm (0.0-0.2); Absolute Eosinophil Count 0.37 k/cumm (0.0-0.7); Absolute Lymphocyte Count 2.69 k/cumm (1.2-3.4); Absolute Monocyte Count 0.53 k/cumm (0.11-0.7); Absolute Neutrophil Count 4.02 k/cumm (1.2-6.7); Basophils % 0.7; Eosinophils % 4.8; HCT 36.7 % (36.0-46.0); Immature Grans % 0.3 %; Mean Corpuscular Hemoglobin 22.3 pg (27.0-33.0); Mean Corpuscular Volume 74.3 fL (80-95); Mean Platelet Volume 8.9 fL (8.0-11.0); Monocytes % 6.9; Neutrophils % 52.3; Platelet Count 449 x1000/uL (130-400); RBC 4.94 m/cumm (4.00-5.20); White Blood Cell Count 7.68 k/cumm (4.4-10.8)
[2019-10-19 16:12] LABS: Iron 22 ug/dL (50-170); Total Iron Binding Capacity 438 ug/dL (250-450); Transferrin Sat 5 % (15-50)
[2019-10-19 16:26] LABS: Ferritin 3 ng/mL (8-252)
[2019-10-19 16:31] LABS: Diff Comment RBC Morph Reviewed; Hypochromasia 3+; Microcytosis 3+; Poikilocytes 1+
== END 2019-10-19 15:27 ==
PROVIDERS: PCP Nurse Practitioner Family; Visit Provider Nurse Practitioner Family
DX: D50.8 Other iron deficiency anemias (principal)
CPT/HCPCS: 36415; 82728; 83540; 83550; 85025

== ENCOUNTER 2019-12-13 13:01 | Outpatient (REF) | payer MEDICAID, SELFPAY ==
[2019-12-13 19:36] LABS: Iron 20 ug/dL (50-170); Total Iron Binding Capacity 442 ug/dL (250-450); Transferrin Sat 5 % (15-50)
[2019-12-13 19:47] LABS: HCT 38.5 % (36.0-46.0); HGB 11.3 g/dL (12.0-15.5); Mean Corp. HGB Concentration 29.4 g/dL (32.0-36.0); Mean Corpuscular Volume 71.6 fL (80-95); Mean Platelet Volume 9.6 fL (8.0-11.0); Platelet Count 516 x1000/uL (130-400); RBC 5.38 m/cumm (4.00-5.20); RBC Distribution Width 19.5 % (11.7-14.6); White Blood Cell Count 6.85 k/cumm (4.4-10.8)
[2019-12-13 19:49] LABS: Ferritin 5 ng/mL (8-252)
[2019-12-17 09:45] LABS: Transferrin 313 mg/dL (201-352)
== END 2019-12-13 13:21 ==
LOC: NCHCN 13:01
PROVIDERS: PCP Nurse Practitioner Family; Visit Provider Nurse Practitioner Family
DX: D50.8 Other iron deficiency anemias (principal)
CPT/HCPCS: 85027; 82728; 83540; 83550; 84466

== ENCOUNTER 2020-01-09 10:03 | Outpatient (CLI) | payer MEDICAID, SELFPAY ==
[2020-01-12 10:21] LABS: SARS-CoV-2 RNA Undetected (Undetected); SARS-CoV-2 Specimen Source Nasopharynx
== END 2020-01-09 10:23 ==
PROVIDERS: PCP Nurse Practitioner Family; Visit Provider Nurse Practitioner Family
DX: J06.9 Acute upper respiratory infection, unspecified (principal)
CPT/HCPCS: U0003

== ENCOUNTER 2020-02-07 01:12 | Outpatient (CLI) | payer MEDICAID, SELFPAY ==
[2020-02-07 07:39] LABS: Abs Immature Grans 0.02 k/cumm (0.0-0.09); Absolute Basophil Count 0.04 k/cumm (0.0-0.2); Absolute Eosinophil Count 0.51 k/cumm (0.0-0.7); Absolute Lymphocyte Count 2.51 k/cumm (1.2-3.4); Absolute Monocyte Count 0.81 k/cumm (0.11-0.7); Absolute Neutrophil Count 4.57 k/cumm (1.2-6.7); Basophils % 0.5; HCT 36.2 % (36.0-46.0); HGB 10.5 g/dL (12.0-15.5); Immature Grans % 0.2 %; Lymphocytes % 29.7; Mean Corpuscular Hemoglobin 20.3 pg (27.0-33.0); Mean Platelet Volume 8.9 fL (8.0-11.0); Monocytes % 9.6; Platelet Count 487 x1000/uL (130-400); RBC 5.17 m/cumm (4.00-5.20); Reticulocyte 1.2 % (0.5-2.4); White Blood Cell Count 8.46 k/cumm (4.4-10.8)
[2020-02-07 07:56] LABS: Anisocytosis 2+; Diff Comment RBC Morph Reviewed; Hypochromasia 3+; Microcytosis 2+; Poikilocytes 1+
[2020-02-07 08:30] LABS: Iron 16 ug/dL (50-170); Total Iron Binding Capacity 411 ug/dL (250-450); Transferrin Sat 4 % (15-50)
[2020-02-07 08:45] LABS: Ferritin 4 ng/mL (8-252)
== END 2020-02-07 01:32 ==
PROVIDERS: PCP Nurse Practitioner Family; Visit Provider Internal Medicine Hematology & Oncology
DX: D50.9 Iron deficiency anemia, unspecified (principal)
CPT/HCPCS: 36415; 82728; 83540; 83550; 85025; 85045

== ENCOUNTER 2020-03-25 16:31 | Outpatient (REF) | payer MEDICAID, SELFPAY ==
[2020-03-25 19:38] LABS: Abs Immature Grans 0.04 k/cumm (0.0-0.09); Absolute Basophil Count 0.03 k/cumm (0.0-0.2); Absolute Eosinophil Count 0.36 k/cumm (0.0-0.7); Absolute Lymphocyte Count 2.36 k/cumm (1.2-3.4); Absolute Monocyte Count 0.59 k/cumm (0.11-0.7); Absolute Neutrophil Count 5.07 k/cumm (1.2-6.7); Basophils % 0.4; Eosinophils % 4.3; HCT 45.2 % (36.0-46.0); Immature Grans % 0.5 %; Lymphocytes % 27.9; Mean Corpuscular Hemoglobin 24.8 pg (27.0-33.0); Mean Corpuscular Volume 80.1 fL (80-95); Mean Platelet Volume 10.3 fL (8.0-11.0); Neutrophils % 59.9; Platelet Count 331 x1000/uL (130-400); RBC 5.64 m/cumm (4.00-5.20); White Blood Cell Count 8.45 k/cumm (4.4-10.8)
[2020-03-25 20:06] LABS: Anisocytosis 2+; Diff Comment RBC Morph Reviewed; Hypochromasia 2+; Macrocytosis 1+; Microcytosis 2+; Poikilocytes 1+
[2020-03-25 20:08] LABS: Iron 110 ug/dL (50-170); Total Iron Binding Capacity 336 ug/dL (250-450); Transferrin Sat 33 % (15-50)
[2020-03-25 20:17] LABS: Ferritin 66 ng/mL (8-252)
[2020-03-28 11:14] LABS: Transferrin 256 mg/dL (201-352)
== END 2020-03-25 16:51 ==
LOC: NCHCN 16:31
PROVIDERS: PCP Nurse Practitioner Family; Visit Provider Nurse Practitioner Family
DX: D50.8 Other iron deficiency anemias (principal)
CPT/HCPCS: 82728; 83540; 83550; 84466; 85025

== ENCOUNTER 2020-05-26 17:26 | Outpatient (REF) | payer MEDICAID, SELFPAY ==
[2020-05-26 20:12] LABS: Hemoglobin A1C 6.6 % (3.8-5.6)
[2020-05-26 20:29] LABS: Anion Gap 11.5 mmol/L (3-11); BUN 10 mg/dL (7-18); CO2 23.5 mmol/L (21.0-32.0); CREATININE 0.82 mg/dL (0.55-1.02); Calcium 9.4 mg/dL (8.5-10.1); Calculated LDL 184 mg/dL (<100); Chloride 105 mmol/L (98-107); Cholesterol 254 mg/dL (<200); Glucose 139 mg/dL (74-106); HDL Cholesterol 38 mg/dL (40-60); Potassium 3.9 mmol/L (3.5-5.1); Sodium 140 mmol/L (136-145); Triglyceride 164 mg/dL (<150)
== END 2020-05-26 17:46 ==
LOC: NCHCN 17:26
PROVIDERS: PCP Nurse Practitioner Family; Visit Provider Nurse Practitioner Family
DX: R53.83 Other fatigue (principal); K21.9 Gastro-esophageal reflux disease without esophagitis
CPT/HCPCS: 80048; 80061; 83036

== ENCOUNTER 2020-06-11 05:10 | Outpatient (CLI) | payer MEDICAID, SELFPAY ==
[2020-06-11 15:51] LABS: Abs Immature Grans 0.04 10^3/uL (0.0-0.06); Absolute Basophil Count 0.05 10^3/uL (0.0-0.2); Absolute Eosinophil Count 0.69 10^3/uL (0.0-0.7); Absolute Lymphocyte Count 2.94 10^3/uL (1.2-3.4); Absolute Neutrophil Count 4.73 10^3/uL (1.2-6.7); Basophils % 0.6; Eosinophils % 7.6; HCT 44.7 % (36.0-46.0); HGB 14.5 g/dL (11.2-15.7); Immature Grans % 0.4; Lymphocytes % 32.5; MCH 28.4 pg (27.0-33.0); MCHC 32.4 % (32.0-36.0); MCV 87.6 fL (80-95); MPV 9.4 fL (8.0-11.0); Monocytes % 6.6; Neutrophils % 52.3; Nucleated RBC 0 %; Platelet Count 316 10^3/uL (130-400); RDW 14.6 % (11.7-14.6); RDW-SD 46.1 fL; Reticulocyte 1.1 % (0.5-2.4); WBC 9.05 10^3/uL (4.4-10.8)
[2020-06-11 16:34] LABS: Iron 43 ug/dL (50-170); Total Iron Binding Capacity 358 ug/dL (250-450); Transferrin Sat 12 % (15-50)
[2020-06-11 16:55] LABS: Ferritin 11 ng/mL (8-252)
== END 2020-06-11 05:30 ==
PROVIDERS: PCP Nurse Practitioner Family; Visit Provider Internal Medicine Hematology & Oncology
DX: D50.9 Iron deficiency anemia, unspecified (principal)
CPT/HCPCS: 36415; 82728; 83540; 83550; 85025; 85045

== ENCOUNTER 2020-08-11 21:22 | Outpatient (REF) | payer MEDICAID, SELFPAY ==
[2020-08-20 17:59] LABS: SARS-CoV-2 RNA Undetected (Undetected); SARS-CoV-2 Specimen Source Nasal/Nares
== END 2020-08-11 21:42 ==
LOC: NCHCN 21:22
PROVIDERS: PCP Nurse Practitioner Family; Visit Provider Nurse Practitioner Family
DX: Z20.828 Contact with and (suspected) exposure to other viral communicable diseases (principal)
CPT/HCPCS: U0003

== ENCOUNTER 2020-10-08 03:01 | Outpatient (CLI) | payer MEDICAID, SELFPAY ==
[2020-10-08 14:55] LABS: Abs Immature Grans 0.03 10^3/uL (0.0-0.06); Absolute Basophil Count 0.05 10^3/uL (0.0-0.2); Absolute Eosinophil Count 0.34 10^3/uL (0.0-0.7); Absolute Lymphocyte Count 2.29 10^3/uL (1.2-3.4); Absolute Monocyte Count 0.48 10^3/uL (0.1-0.8); Absolute Neutrophil Count 3.99 10^3/uL (1.2-6.7); Basophils % 0.7; Eosinophils % 4.7; HCT 48.2 % (36.0-46.0); HGB 15.6 g/dL (11.2-15.7); Immature Grans % 0.4; Lymphocytes % 31.9; MCH 29.9 pg (27.0-33.0); MCHC 32.4 % (32.0-36.0); MCV 92.5 fL (80-95); MPV 9.6 fL (8.0-11.0); Monocytes % 6.7; Neutrophils % 55.6; Nucleated RBC 0 %; Platelet Count 273 10^3/uL (130-400); RBC 5.21 10^6/uL (3.93-5.22); RDW-SD 44.2 fL; Reticulocyte 1.1 % (0.5-2.4); WBC 7.18 10^3/uL (4.4-10.8)
[2020-10-08 15:21] LABS: Iron 96 ug/dL (50-170); Total Iron Binding Capacity 275 ug/dL (250-450); Transferrin Sat 35 % (15-50)
[2020-10-08 15:43] LABS: Calculated LDL 186 mg/dL (<100); Cholesterol 280 mg/dL (<200); Ferritin 101 ng/mL (8-252); HDL Cholesterol 37 mg/dL (40-60); TSH 4.43 uIU/mL (0.36-3.74); Triglyceride 288 mg/dL (<150)
== END 2020-10-08 03:21 ==
PROVIDERS: PCP Nurse Practitioner Family; Visit Provider Internal Medicine Hematology & Oncology
DX: D50.9 Iron deficiency anemia, unspecified (principal); R73.09 Other abnormal glucose; E78.5 Hyperlipidemia, unspecified; J45.50 Severe persistent asthma, uncomplicated
CPT/HCPCS: 36415; 80061; 82728; 83540; 83550; 84443; 85025; 85045

== ENCOUNTER 2021-04-01 01:29 | Outpatient (CLI) | payer MEDICAID, SELFPAY ==
--- NOTE | 2021-04-01 13:14 | DI.RAD_ITS ---
Exam(s) XR CHEST 2V PA LATERAL EXAM: XR CHEST 2V PA LATERAL CLINICAL HISTORY: DYSPNEA ON EXERTION, R06.00,ASTHMA,? ALTERNATIVE PROCESS. TECHNIQUE: 2D digital imaging was performed. COMPARISON: CR CHEST 2 VIEWS PA,LAT from 02/23/2016 FINDINGS: Heart size is normal. The mediastinum is not widened. Right lung is clear but there is platelike atelectasis-early infiltrate left lung base, not previousl y present. This is in the lingular segment. No pleural effusions. No pneumothorax. IMPRESSION: New atelectasis and-mild infiltrate in the left lung base. No pleural effusions. DATA REPOSITORY: RADIATION DOSE DELIVERED:
== END 2021-04-01 01:49 ==
PROVIDERS: PCP Nurse Practitioner Family; Visit Provider Internal Medicine Critical Care Medicine
DX: J98.11 Atelectasis (principal); R91.8 Other nonspecific abnormal finding of lung field; J45.909 Unspecified asthma, uncomplicated
CPT/HCPCS: 71046

== ENCOUNTER 2021-04-08 19:43 | Outpatient (REF) | payer MEDICAID, SELFPAY ==
[2021-04-08 19:52] LABS: HCT 50.1 % (36.0-46.0); HGB 16.1 g/dL (11.2-15.7); MCH 29.7 pg (27.0-33.0); MCHC 32.1 % (32.0-36.0); MCV 92.3 fL (80-95); MPV 10.4 fL (8.0-11.0); Platelet Count 306 10^3/uL (130-400); RBC 5.43 10^6/uL (3.93-5.22); RDW 13.3 % (11.7-14.6); RDW-SD 45.5 fL; WBC 7.78 10^3/uL (4.4-10.8)
[2021-04-08 20:14] LABS: Iron 78 ug/dL (50-170); Total Iron Binding Capacity 300 ug/dL (250-450); Transferrin Sat 26 % (15-50)
[2021-04-08 20:27] LABS: Ferritin 45 ng/mL (8-252)
== END 2021-04-08 19:44 | disposition home or self-care (01) ==
LOC: NCHCN 19:43
PROVIDERS: PCP Nurse Practitioner Family; Visit Provider Nurse Practitioner Family
DX: J45.50 Severe persistent asthma, uncomplicated; M79.7 Fibromyalgia; D50.9 Iron deficiency anemia, unspecified
CPT/HCPCS: 85027; 82728; 83540; 83550

== ENCOUNTER 2021-04-29 02:20 | Outpatient (CLI) | payer MEDICAID, SELFPAY ==
--- NOTE | 2021-04-29 14:18 | DI.RAD_ITS ---
Exam(s) XR THUMB LT EXAM: XR THUMB LT CLINICAL HISTORY: LT THUMB PAIN, M79.645, H/O FALL, SWELLING, ? FX. TECHNIQUE: 2D digital imaging was performed. COMPARISON: No exams were available for comparison FINDINGS: There is no evidence of fracture or dislocation. The articulations of the left thumb appear unremark able with no degenerative changes nor erosions. Bone density is normal. No osseous lesions. Sesamo id bones appear unremarkable. IMPRESSION: No significant radiograph findings in left thumb. DATA REPOSITORY: RADIATION DOSE DELIVERED:
== END 2021-04-29 02:40 ==
PROVIDERS: PCP Nurse Practitioner Family; Visit Provider Nurse Practitioner Family
DX: G89.11 Acute pain due to trauma (principal); M79.645 Pain in left finger(s); R22.32 Localized swelling, mass and lump, left upper limb; W19.XXXA Unspecified fall, initial encounter
CPT/HCPCS: 73140

== ENCOUNTER 2021-07-03 02:52 | Outpatient (CLI) | payer MEDICARE, MEDICAID, SELFPAY ==
[2021-07-03 14:55] LABS: Abs Immature Grans 0.05 10^3/uL (0.0-0.06); Absolute Basophil Count 0.02 10^3/uL (0.0-0.2); Absolute Eosinophil Count 0.01 10^3/uL (0.0-0.7); Absolute Neutrophil Count 6.49 10^3/uL (1.2-6.7); Basophils % 0.2; Eosinophils % 0.1; HCT 44.5 % (36.0-46.0); HGB 14.4 g/dL (11.2-15.7); Immature Grans % 0.5; Lymphocytes % 29.2; MCH 29.4 pg (27.0-33.0); MCHC 32.4 % (32.0-36.0); MCV 90.8 fL (80-95); MPV 9.5 fL (8.0-11.0); Monocytes % 6.8; Neutrophils % 63.2; Nucleated RBC 0 %; Platelet Count 288 10^3/uL (130-400); RDW 13.6 % (11.7-14.6); RDW-SD 45.5 fL; WBC 10.27 10^3/uL (4.4-10.8)
[2021-07-03 15:55] LABS: Iron 54 ug/dL (50-170); Total Iron Binding Capacity 303 ug/dL (250-450); Transferrin Sat 18 % (15-50)
[2021-07-03 16:08] LABS: Ferritin 37 ng/mL (8-252)
== END 2021-07-03 02:53 | disposition home or self-care (01) ==
LOC: LBO 02:52
PROVIDERS: PCP Nurse Practitioner Family; Visit Provider Internal Medicine Medical Oncology
DX: D50.8 Other iron deficiency anemias (principal)
CPT/HCPCS: 36415; 82728; 83540; 83550; 85025

== ENCOUNTER 2021-08-24 02:31 | Outpatient (CLI) | payer MEDICARE, MEDICAID, SELFPAY ==
--- NOTE | 2021-08-24 13:45 | DI.MRI_ITS ---
Exam(s) MR UPPER EXTREMITY LT WO EXAM: MR UPPER EXTREMITY LT WO CLINICAL HISTORY: LT THUMB GAMEKEEPERS THUMB S63.649A TECHNIQUE: Multiplanar multisequence MRI was performed. COMPARISON: CR XR THUMB LT from 04/29/2021 FINDINGS: MARROW:Is mild bone contusion signal lateral base of proximal phalanx of thumb. ARTICULATIONS: There is tear of the ulnar collateral ligament of the thumb with an element proximal r etraction and mild horizontal orientation. Is difficult to identify the adductor aponeurosis to dete rmine if there is a true Stener lesion here. MUSCLES: There is no evidence of abnormal signal nor mass in the visualized muscles. EXTRAMUSCULAR SOFT TISSUES: No abnormal signal, mass, or fluid collection. OTHER: None. IMPRESSION: 1. There is a tear of the ulnar collateral ligament thumb. Determine if there is a true Stener lesio n here. 2. No fracture evident DATA REPOSITORY:
== END 2021-08-24 02:51 ==
PROVIDERS: PCP Nurse Practitioner Family; Visit Provider Orthopaedic Surgery
DX: S63.642A Sprain of metacarpophalangeal joint of left thumb, initial encounter (principal); M79.642 Pain in left hand
CPT/HCPCS: 73218

== ENCOUNTER 2021-09-21 08:33 | Outpatient (CLI) | payer MEDICARE, MEDICAID, SELFPAY | END 2021-09-21 08:34 | disposition home or self-care (01) | LOC: DI.CARD 08:34 | PROVIDERS: PCP Nurse Practitioner Family; Visit Provider Internal Medicine Cardiovascular Disease | DX: R69 Illness, unspecified (principal) | CPT/HCPCS: 93010 ==

== ENCOUNTER → 2021-09-21 14:31 | Outpatient (BNVA) | payer MEDICARE, MEDICAID, SELFPAY | PROVIDERS: PCP Nurse Practitioner Family; Referring Provider Nurse Practitioner Family; Visit Provider Internal Medicine Cardiovascular Disease | DX: E78.5 Hyperlipidemia, unspecified (principal) | CPT/HCPCS: 99204; 99214 ==

== ENCOUNTER 2021-11-19 03:00 | Outpatient (CLI) | payer MEDICARE, MEDICAID, SELFPAY ==
--- NOTE | 2021-11-19 14:00 | NS.NUTBLAN_ITS ---
Malu was referred for Medical Nutrition Therapy for diabetes self management education. She was referred to me and Estefania Messer RD. Malu reports that she has been checking her blood sugars fasting and 2 hours after meals. She recently had blood test with A1C: 13.9%, blood sugars 250-400 mg/dl. She reports difficulty with sight, frequent urination and thirst. She was recently started on metformin 1000 mg BID. Blood sugars have responded well: now typically less than 180 mg/dl. PMH: Asthma, chronic pain, fibromyalgia, hyperlipidemia, GERD, depression Meds: 8 mg prednisone qd, 1000 mg metformin BID, Vit D, omeprazole, zofran. Diet: mostly vegetarian/vegan. Typical intake: Fiber One cereal, berries, yogurt, hermilo seeds, cheese, vegan sausage, olives 5'2 declines weight. Most recent weight: 195 lbs. BMI 36 Labs: Malu reports that she typically only eats once daily and drinks juice during night. She has a hx of sleep walking and eating/drinking. She no longer has juice in house and has made several diet changes including eating multiple times per day. Blood sugars improving, may also benefit from GLP1ra in view of heart health and recent lipid elevations. Reviewed how to follow a diet limited in simple sugars, emphasizing complex carbs, vegetarian protein and healthy fats. Offered a dexUltius 6 continuous glucose monitor- declines as worried she will become obsessed with her blood sugars. Current diet and medications have greatly improved diet. Would consider Ozempic if fasting sugars > 140 mg/dl. No follow planned at this time. Will be available prn.
== END 2021-11-19 03:01 | disposition home or self-care (01) ==
PROVIDERS: PCP Nurse Practitioner Family; Visit Provider Dietitian, Registered
DX: E11.9 Type 2 diabetes mellitus without complications (principal); Z71.3 Dietary counseling and surveillance
CPT/HCPCS: 97802

== ENCOUNTER 2022-02-22 20:42 | Outpatient (REF) | payer MEDICARE, MEDICAID, SELFPAY ==
[2022-02-22 19:44] LABS: HCT 47.3 % (36.0-46.0); HGB 14.6 g/dL (11.2-15.7); MCH 26.4 pg (27.0-33.0); MCHC 30.9 % (32.0-36.0); MCV 85 fL (80-95); MPV 10.1 fL (8.0-11.0); Platelet Count 294 10^3/uL (130-400); RBC 5.54 10^6/uL (3.93-5.22); RDW 15.8 % (11.7-14.6); RDW-SD 49.1 fL; WBC 7.39 10^3/uL (4.4-10.8)
[2022-02-22 20:05] LABS: Iron 59 ug/dL (50-170); Total Iron Binding Capacity 334 ug/dL (250-450); Transferrin Sat 18 % (15-50)
[2022-02-22 20:08] LABS: ALT 25 U/L (14-59); AST 9 U/L (15-37); Calculated LDL 121 mg/dL (<100); Cholesterol 193 mg/dL (<200); HDL Cholesterol 41 mg/dL (40-60); Triglyceride 158 mg/dL (<150)
[2022-02-22 20:20] LABS: Creatine Kinase 55 U/L (26-192)
== END 2022-02-22 20:43 | disposition home or self-care (01) ==
LOC: NCHCN 20:42
PROVIDERS: PCP Nurse Practitioner Family; Visit Provider Nurse Practitioner Family
DX: E11.9 Type 2 diabetes mellitus without complications (principal); E78.5 Hyperlipidemia, unspecified
CPT/HCPCS: 80061; 82550; 85027; 83540; 83550; 84450; 84460

== ENCOUNTER 2022-05-03 14:47 | Outpatient (REF) | payer MEDICARE, MEDICAID, SELFPAY ==
[2022-05-03 18:42] LABS: HGB 14.4 g/dL (11.2-15.7); MCH 27.3 pg (27.0-33.0); MCV 85 fL (80-95); MPV 9.7 fL (8.0-11.0); Platelet Count 328 10^3/uL (130-400); RBC 5.27 10^6/uL (3.93-5.22); RDW 15.9 % (11.7-14.6); RDW-SD 49.4 fL; WBC 9.66 10^3/uL (4.4-10.8)
[2022-05-03 18:58] LABS: Iron 53 ug/dL (50-170); Total Iron Binding Capacity 361 ug/dL (250-450)
[2022-05-03 19:20] LABS: ALT 21 U/L (14-59); AST 13 U/L (15-37); Ferritin 13 ng/mL (8-252); HDL Cholesterol 42 mg/dL (40-60); LDL CHOLESTEROL 161 mg/dL (<100)
[2022-05-03 19:40] LABS: Creatine Kinase 63 U/L (26-192)
== END 2022-05-03 14:48 | disposition home or self-care (01) ==
LOC: NCHCN 14:47
PROVIDERS: PCP Nurse Practitioner Family; Visit Provider Nurse Practitioner Family
DX: E78.5 Hyperlipidemia, unspecified (principal); Z00.00 Encounter for general adult medical examination without abnormal findings; E11.9 Type 2 diabetes mellitus without complications; D50.8 Other iron deficiency anemias
CPT/HCPCS: 82550; 83721; 85027; 82728; 83540; 83550; 83718; 84450; 84460

== ENCOUNTER 2022-05-24 18:12 | Outpatient (REF) | payer MEDICARE, MEDICAID, SELFPAY ==
[2022-05-24 19:31] LABS: TSH 4.82 uIU/mL (0.36-3.74)
[2022-05-24 19:43] LABS: Vitamin D 25 Total 31.4 ng/mL (30-100)
[2022-05-24 20:23] LABS: Vitamin B12 400 pg/mL (193-986)
== END 2022-05-24 18:13 | disposition home or self-care (01) ==
LOC: NCHCN 18:12
PROVIDERS: PCP Nurse Practitioner Family; Visit Provider Nurse Practitioner Family
DX: R00.2 Palpitations (principal); R53.83 Other fatigue
CPT/HCPCS: 82306; 82607; 84443

== ENCOUNTER 2022-07-09 01:12 | Outpatient (RCR) | payer MEDICARE, MEDICAID, SELFPAY ==
--- OUTSIDE RECORDS SUMMARY | 2022-07-09 01:13 | XMS_ITS | Encounter Summary ---
:1975 Author Organization [facility] [place] [address] Care Team Providers Name Role Phone Brandee Fuchs APRN Primary Care Provider Encounter Details Date Type Department Care Team Description 01/14/2022 Telephone Pulmonology at [facility] [place] [address] Social History Tobacco Use Types Packs/Day Years Used Date Former Smoker Cigarettes 0.5 11 Quit: 01/05/20 03 Smokeless Tobacco: Never Used Alcohol Use Standard Drinks/Week Comments No 0 (1 standard drink = 0.6 oz pure alcoho l) Sex Assigned at Date Recorded Not on file documented as of this encounter Plan of Treatment Not on filedocumented as of this encounter Goals Goal Patient Goal Associated Recent Patient-Stated? Author Type Problems Progress DH Home Medication Patient Yes Irish, Manny and Facing Rekha Roman Understanding Action Plan [facility] Note: Formatting of this note might be d ifferent from the original. Reduction in use of SMILEY to 1-2 nebulize r treatments per day. Measured by: Patient report Time frame: 6 months documented as of this encounter Visit Diagnoses Not on filedocumented in this encounter Care Teams Hairspring Truer Relationship Specialty Start Date End Date Brandee Fuchs APRN PCP - General Family Medicine 01/17/19 [address] [place], [place] [id number] documented as of this encounter
--- OUTSIDE RECORDS SUMMARY | 2022-07-09 01:13 | XMS_ITS | Encounter Summary ---
:1975 Author Organization [facility] [place] [address] Care Team Providers Name Role Phone Brandee Fuchs LOADING DOCK HAND Primary Care Provider Reason for Visit Reason Comments Specialty Pharmacy Review Encounter Details Date Type Department Care Team Description 04/19/2022 Specialty Pharmacy Pharmacy at [facility] [place] [address] Social History Tobacco Use Types Packs/Day Years Used Date Former Smoker Cigarettes 0.5 11 Quit: 01/05/20 03 Smokeless Tobacco: Never Used Alcohol Use Standard Drinks/Week Comments No 0 (1 standard drink = 0.6 oz pure alcoho l) Sex Assigned at Date Recorded Not on file documented as of this encounter Progress Notes Isabella Price - 04/19/2022 8:11 AM EDT The [facility] has completed a benefits investigation for Malu De to review their eligibility to fill at [facility]. Per patient's medication list they are prescribed Fasenra and the medication is able to be filled at the [facility]. However, Malu has been un- enrolled from specialty services due to lack of response. documented in this encounter Plan of Treatment Not on filedocumented as of this encounter Goals Goal Patient Goal Associated Recent Patient-Stated? Author Type Problems Progress Home Medication Patient Yes Cob[place], Compliance and Facing Rekha Roman , Understanding Action Plan [facility] Note: Formatting of this note might be d ifferent from the original. Reduction in use of SMILEY to 1-2 nebulize r treatments per day. Measured by: Patient report Time frame: 6 months documented as of this encounter Visit Diagnoses Not on filedocumented in this encounter Care Teams Cement Tester Assistant Relationship Specialty Start Date End Date Brandee Fuchs, LOADING DOCK HAND PCP - General Family Medicine 01/17/19 [address] [place] [address] documented as of this encounter
--- OUTSIDE RECORDS SUMMARY | 2022-07-09 01:13 | XMS_ITS | Encounter Summary ---
:1975 Author Organization [facility] [place] [address] Care Team Providers Name Role Phone Brandee Fuchs APRN Primary Care Provider Encounter Details Date Type Department Care Team Description [facility] [address] [phone] Social History Tobacco Use Types Packs/Day Years [...] Problems Progress DH Home Medication Patient Yes Manny Coburn and Facing Rekha Roman Understanding Action Plan [facility] Note: Formatting of this note might be d ifferent from the original. Reduction in use of SMILEY to 1-2 nebulize r treatments per day. Measured by: Patient report Time frame: 6 months documented as of this encounter Visit Diagnoses Not on filedocumented in this encounter Care Teams Automotive Engineering Technician Relationship Specialty Start Date End Date Brandee Fuchs APRN PCP - General Family Medicine 01/17/19 [address] [place], [place] [id number] documented as of this encounter
--- OUTSIDE RECORDS SUMMARY | 2022-07-09 01:13 | XMS_ITS | Encounter Summary ---
:1975 Author Organization [facility] [place] [address] Care Team Providers Name Role Phone Brandee Fuchs APRN Primary Care Provider Encounter Details Date Type Department Care Team Description 06/25/20[facility] [place] [address] Pulmonary Medicine [phone] [place] [phone] (Wo rk) Social History Tobacco Use Types Packs/Day Years [...] Type Problems Progress Home Medication Patient Yes Irish, Compliance and Facing Rekha Roman Understanding Action Plan [facility] Note: Formatting of this note might be d ifferent from the original. Reduction in use of SMILEY to 1-2 nebulize r treatments per day. Measured by: Patient report Time frame: 6 months documented as of this encounter Visit Diagnoses Not on filedocumented in this encounter Care Teams Medical Office Assistant Relationship Specialty Start Date End Date Brandee Fuchs APRN PCP - General Family Medicine 01/17/19 [address] [place] [address] documented as of this encounter
--- OUTSIDE RECORDS SUMMARY | 2022-07-09 01:13 | XMS_ITS | Encounter Summary ---
:1975 Author Organization [place] [address] Care Team Providers Name Role Phone DanielBrandee huynh Obdulia GAMBLE Primary Care Provider Reason for Visit Reason Comments Specialty Pharmacy Review Medication Management Encounter Details Date Type Department Care Team Description 06/29/2021 Specialty Pharmacy Pharmacy at [facility] Robina Regan, Specialty Pharmacy [facility] Review; [place] [address] Social History Tobacco Use Types Packs/Day Years Used Date Former Smoker Cigarettes 0.5 11 Quit: 01/05/20 03 Smokeless Tobacco: Never Used Alcohol Use Standard Drinks/Week Comments No 0 (1 standard drink = 0.6 oz pure alcoho l) Sex Assigned at Date Recorded Not on file documented as of this encounter Progress Notes Robina Regan [facility] - 06/29/2021 1:29 PM EDT Opened in error documented in this encounter Plan of Treatment Not on filedocumented as of this encounter Goals Goal Patient Goal Associated Recent Patient-Stated? Author Type Problems Progress Home Medication Patient Yes Irish, Compliance and Facing Rekha Roman Understanding Action Plan [facility] Note: Formatting of this note might be d ifferent from the original. Reduction in use of SMILEY to 1-2 nebulize r treatments per day. Measured by: Patient report Time frame: 6 months documented as of this encounter Visit Diagnoses Not on filedocumented in this encounter Care Teams Auditor Medical Claims Relationship Specialty Start Date End Date Brandee Fuchs, SERVICES ENGINEER PCP - General Family Medicine 01/17/19 [address] [place] [address] documented as of this encounter
--- OUTSIDE RECORDS SUMMARY | 2022-07-09 01:13 | XMS_ITS | Encounter Summary ---
:1975 Author Organization [facility] [place] [address] Care Team Providers Name Role Phone Brandee Fuchs APRN Primary Care Provider Encounter Details Date Type Department Care Team Description 09/02/2021 Telephone Pulmonology at [facility] [place] [address] Social History Tobacco Use Types Packs/Day [...] and Facing Rekha Roman Understanding Action Plan [facility] Note: Formatting of this note might be d ifferent from the original. Reduction in use of SMILEY to 1-2 nebulize r treatments per day. Measured by: Patient report Time frame: 6 months documented as of this encounter Visit Diagnoses Not on filedocumented in this encounter Care Teams Asbestos Cement Sheet Supervisor Relationship Specialty Start Date End Date Brandee Fuchs APRN PCP - General Family Medicine 01/17/19 [address]ADY [address] [place], [place] [id number] documented as of this encounter
--- OUTSIDE RECORDS SUMMARY | 2022-07-09 01:13 | XMS_ITS | Encounter Summary ---
:1975 Author Organization [facility] [place] [address] Care Team Providers Name Role Phone Brandee Fuchs APRN Primary Care Provider Encounter Details Date Type Department Care Team Description 03/26/2022 Telephone [place] [facility] [place] [facility] [place] [address] Social History Tobacco Use Types Packs/Day [...] Facing Rekha Roman Understanding Action Plan [facility] Note: Formatting of this note might be d ifferent from the original. Reduction in use of SMILEY to 1-2 nebulize r treatments per day. Measured by: Patient report Time frame: 6 months documented as of this encounter Visit Diagnoses Not on filedocumented in this encounter Care Teams Cadd Operator Relationship Specialty Start Date End Date Brandee Fuchs APRN PCP - General Family Medicine 01/17/19 [address]ette [address]ADY [address] [place], [place] [id number] documented as of this encounter
--- OUTSIDE RECORDS SUMMARY | 2022-07-09 01:13 | XMS_ITS | Encounter Summary ---
:1975 Author Organization [facility] [place] [address] Care Team Providers Name Role Phone Brandee Fuchs APRN Primary Care Provider Encounter Details Date Type Department Care Team Description 04/22/2022 Telephone [place]ology [place] [facility] [place] [address] Social History Tobacco Use Types Packs/Day [...] on filedocumented in this encounter Care Teams Electroplating Worker Relationship Specialty Start Date End Date Brandee Fuchs APRN PCP - General Family Medicine 01/17/19 Jeanette [address]ADY [address] [place], [place] [id number] documented as of this encounter
--- OUTSIDE RECORDS SUMMARY | 2022-07-09 01:13 | XMS_ITS | Encounter Summary ---
:1975 Author Organization [facility] [place] [address] Care Team Providers Name Role Phone Brandee Fuchs MAVIS Primary Care Provider Reason for Visit Reason Comments Specialty Pharmacy Review Medication Management Encounter Details Date Type Department Care Team Description 05/15/2021 Specialty Pharm[address] at [facility] [place] Robina Regan, Specialty Pharmacy [facility]; [place] [address] Social History Tobacco Use Types Packs/Day Years Used Date Former Smoker Cigarettes 0.5 11 Quit: 01/05/20 03 Smokeless Tobacco: Never Used Alcohol Use Standard Drinks/Week Comments No 0 (1 standard drink = 0.6 oz pure alcoho l) Sex Assigned at Date Recorded Not on file documented as of this encounter Progress Notes Robina Regan [facility] - 05/15/2021 11:59 PM EDT Clinical Management Plan: Transfer of Care/Discharge Specialty Services Specialty Pharmacy Consultation; Robina Regan [facility] Comprehensive Medication Management (CMM) [place] [address] [facility] [address] Telephone Information: Work Phone Not on file. Is the patient transferring services to a different Specialty Pharmacy or discontinuing the medication? Discontinuing Services Medication: Fasenra Reason for discontinuation or transfer: Lost to contact Approximate date of discontinuation or transfer: 05/15/2021 Patient's response to therapy: Patient has not replied to outreach attempts for refills. Let us knowthat she soul be receiving doses at local PCP office but has not confirmed when she initiated treatment. DC'd from services at this time due to inability to reach patient. Summary of services provided by D- Specialty: Benefits investigation, pharmacist php consultant 02/05 Summary of on-going needs: benefits investigation Referral for additional services (if applicable): n/a Is patient aware of referral? yes - left voicemail to let patient know Instructions provided to patient about discharge/transfer: yes - patient informed that should could call to re-start Specialty Services at any time Provider aware of discontinuation or transfer: yes Patient understands no changes to current drug regimen were made at the appointment and that [facility] is providing recommendations (summary located at top of note) for provider review and follow up. Robina Regan [facility] 06/29/21 1:31 PM documented in this encounter Plan of Treatment Not on filedocumented as of this encounter Goals Goal Patient Goal Associated Recent Patient-Stated? Author Type Problems Progress DH Home Medication Patient Yes Irish, Compliance and Facing Rekha Roman Understanding Action Plan [facility] Note: Formatting of this note might be d ifferent from the original. Reduction in use of SMILEY to 1-2 nebulize r treatments per day. Measured by: Patient report Time frame: 6 months documented as of this encounter Visit Diagnoses Not on filedocumented in this encounter Care Teams Psychiatric Secretary Relationship Specialty Start Date End Date Brandee Fuchs, PRODUCT SAFETY ENGINEER PCP - General Family Medicine 01/17/19 Jeanette [address]ADY [address] [place] [address] documented as of this encounter
--- OUTSIDE RECORDS SUMMARY | 2022-07-09 01:13 | XMS_ITS | Encounter Summary ---
:1975 Author Organization [facility] [address] Care Team Providers Name Role Phone DanielBrandee huynh Obdulia GAMBLE Primary Care Provider Encounter Details Date Type Department Care Team Description 07/29/2021 Telephone Hematology and Oncology at Ronnell Salas MD [facility] [place] [address]ilo hurt HEMATOLOGY/[place] [address] [place] [address] [phone] (Wo rk) Social History Tobacco Use Types Packs/Day Years Used Date Former Smoker Cigarettes 0.5 11 Quit: 01/05/20 03 Smokeless Tobacco: Never Used Alcohol Use Standard Drinks/Week Comments No 0 (1 standard drink = 0.6 oz pure alcoho l) Sex Assigned at Date Recorded Not on file documented as of this encounter Miscellaneous Notes Telephone Encounter - Ronnell Salas MD - 07/29/2021 10:21 AM EDT Received repeat labs from [facility] from 07/03 WBC=10.27 Hgb 14.4 (from 16.1 on 04/08/21) MCV 90.8 Plts count 288 ANC 6.49 Iron 54 (from 78 in March) TIBC 303 (from 300 in March) Transferrin Sat % 18% (From 26% in March) Ferritin 37 (from 45 in March and 101 in September 2020) Based on these findings would not evaluate the transient one time erythrocytosis further given that the other cell lines are unremarkable. Would repeat iron studies and ferritin and CBC in 2-3 months and consider further IV iron infusions at that time (~ a year from her last) Called to discuss and reached a VM and left message asking for a call back with times when it would be best to reach her to talk about next steps. documented in this encounter Plan of Treatment Not on filedocumented as of this encounter Goals Goal Patient Goal Associated Recent Patient-Stated? Author Type Problems Progress DH Home Medication Patient Yes Irish, Compliance and Facing Rekha Roman Understanding Action Plan [facility] Note: Formatting of this note might be d ifferent from the original. Reduction in use of SMILEY to 1-2 nebulize r treatments per day. Measured by: Patient report Time frame: 6 months documented as of this encounter Visit Diagnoses Not on filedocumented in this encounter Care Teams Copy Director Relationship Specialty Start Date End Date Brandee Fuchs, COLOR DIPPER PCP - General Family Medicine 01/17/19 [address] [place] [address] documented as of this encounter
--- OUTSIDE RECORDS SUMMARY | 2022-07-09 01:13 | XMS_ITS | Encounter Summary ---
:1975 Author Organization [facility] [place] [address] Care Team Providers Name Role Phone Brandee Fuchs APRN Primary Care Provider Encounter Details Date Type Department Care Team Description 01/13/2022 Telephone Pulmonology at [facility] [place] [address] Social History Tobacco Use Types Packs/Day [...] Facing Rekha Roman Understanding Action Plan [facility] Note: Formatting of this note might be d ifferent from the original. Reduction in use of SMILEY to 1-2 nebulize r treatments per day. Measured by: Patient report Time frame: 6 months documented as of this encounter Visit Diagnoses Not on filedocumented in this encounter Care Teams Personal Loan Specialist Relationship Specialty Start Date End Date Brandee Fuchs APRN PCP - General Family Medicine 01/17/19 Jeanette GRADY [address] [place], [place] [id number] documented as of this encounter
--- OUTSIDE RECORDS SUMMARY | 2022-07-09 01:13 | XMS_ITS | Clinical Summary ---
:1975 Author Organization [facility] [place] [address] Care Team Providers Name Role Phone Brandee Fuchs Obdulia GAMBLE Primary Care Provider Allergies Active Allergy Reactions Severity Noted Date Comments Acetaminophen 09/13/2016 Mouth blisters Amitriptyline Anxiety 11/29/2019 Celecoxib 03/25/2021 Nausea and palp itations Cyclobenzaprine Other (See 08/17/2017 Small bliste rs Comments) Duloxetine Anxiety 11/29/2019 Mometasone-Formoterol Other (See 02/01/2020 Mental alterations Comments) Dupilumab Rash Medium 08/06/2020 Rash intermitte ntly on extremities. Gabapentin Other (See 11/29/2019 [place] like body was Comments) shaking, nerves vibrating, hand s went numb Indomethacin 05/31/2019 Milnacipran Other (See High 10/09/2020 Nerve temors Comments) Tramadol Other (See 12/14/2019 Anxiety, foggy head, Comments) unaware Hydrocodone-Acetaminophe 09/13/2016 Deborah th blisters n Medications Medication Sig Dispensed Refills Start Date End Date Status albuterol (PROVENTIL) Take 2.5 mg by 0 09/10/2016 Active 2.5 mg /3 mL (0.083 nebulization as %) Solution for needed. Nebulization montelukast Take 10 mg by mouth 0 09/10/2016 Active (SINGULAIR) 10 mg daily. Tablet omeprazole (PRILOSEC) Take 40 mg by mouth 0 09/10/20 16 Active 40 mg Capsule, daily. Delayed Release(E.C.) BREO ELLIPTA 200-25 Inhale 1 puff into 1 07/14/2016 Active mcg/dose Disk with the lungs daily. Device SPIRIVA RESPIMAT 1.25 Inhale 2 puffs into 1 07/14/20 16 Active mcg/actuation Mist the lungs daily. triamcinolone 2 sprays by Nasal 0 Active (NASACORT OR NASACORT route daily. OTC) 55 mcg Aerosol, [place] multivitamin Take 1 tablet by 0 Active (THERAGRAN) Tablet mouth daily. folic acid (FOLVITE) Take 1 mg by mouth 0 Active 1 mg Tablet daily. ondansetron (ZOFRAN) Take 1 tablet by 30 tablet 3 06/26/2019 Active 4 mg Tablet mouth 2 times daily as needed for Nausea. Take 1 hour prior to oral iron. cholecalciferol, Take 1,000 Units by 0 Active Vitamin D3, 1,000 mouth daily. unit Capsule ipratropium-albuteroL Take 3 mLs by 0 Active (DUONEB) 0.5 mg-3 nebulization every mg(2.5 mg base)/3 mL 6 hours as needed. Solution for Nebulization dexamethasone Take 1 tablet by 6 tablet 0 02/21/2020 Active (Decadron) 4 mg mouth daily. Take Tablet daily x 3 days after each iron infusion Additional Information Patient not taking. Reported on 06/29/2021 dexamethasone (Decadron) 4 mg Take 1 tablet by mouth 9 tablet 0 06/17/2020 Active TabletIndications: Iron daily. Take one tablet deficiency anemia, unspecified daily X3 days iron deficiency anemia type following Iron infusion. Additional Information Patient not taking. Reported on 06/29/2021 TURMERIC ORAL Take by mouth. 0 A ctive meloxicam (MOBIC) 7.5 mg Take 1 tablet by mouth 30 tablet 2 Active Tablet daily. Take with food. Additional Information Patient not taking. Reported on 06/29/2021 Fasenra Pen 30 mg/mL Inject 30 mg subcutaneously 1 mL 3 0 06/25/2021 Active Auto-Injector Every 8 Weeks. predniSONE (Deltasone) 1 Take one 5-mg tab and three 90 tablet 1 01/14/2022 Active mg Tablet 1-mg tabs together for 8 mg total daily. predniSONE (Deltasone) 5 Take one 5-mg tab and three 30 tablet 1 01/14/2022 Active mg Tablet 1-mg tabs together for 8 mg total daily. Active Problems Problem Noted Date Asthma 09/20/2016 Fatigue Fibromyalgia Encounters Date Type Specialty Care Team Description 04/26/2022 Telephone Pulmonology Elva Howard 04/22/2022 Telephone Pulmonology Jodi Nieves 04/21/2022 Telephone Pulmonology Jodi Nieves 04/20/2022 Telephone Pulmonology Elva Howard 04/19/2022 Specialty Pharmacy Pharmacy [facility]abella [facility] Pharmacy Review from Last 3 Months Family History Medical History Relation Comments Alcohol Use Disorder Father Heart Disease Father Liver Disease Father Allergies Mother Relation Status Comments Father Mother Social History Tobacco Use Types Packs/Day Years Used Date Former Smoker Cigarettes 0.5 11 Quit: 01/05/20 03 Smokeless Tobacco: Never Used Alcohol Use Standard Drinks/Week Comments No 0 (1 standard drink = 0.6 oz pure alcoho l) Sex Assigned at Date Recorded Not on file Last Filed Vital Signs Vital Sign Reading Time Taken Comments Blood Pressure 125/83 06/29/2021 3:09 PM EDT Pulse 80 06/29/2021 3:09 PM EDT Temperature 36.1 ??C (96.9 ??F) 06/29/2021 3:09 PM EDT Respiratory Rate 16 06/29/2021 3:09 PM EDT Oxygen Saturation 99% 06/29/2021 3:09 PM EDT Inhaled Oxygen Concentration - - Weight 86.2 kg (190 lb) 06/12/2020 8:45 AM EDT Height 156.2 cm (5' 1.5) 07/03/2020 1:12 PM EDT Body Mass Index 35.92 06/12/2020 8:45 AM EDT Plan of Treatment Health Maintenance Due Date Last Done Comments Covid-19 Vaccine (#1) 1981 Pneumococcal Vaccine: At-Risk 5-64yrs (1 - PCV) 1982 HIV screen 1994 Hepatitis C Screening 1994 Lipid Screening 1994 Tdap adult 1995 Tetanus vaccine 1995 HPV test 2006 PAP Smear 2006 Breast Cancer Share Decision Needed 2016 Diabetes Screening (HgbA1C or Glucose) 09/13/2019 6 Colonoscopy 2021 Influenza (Flu) vaccine (1 of - Influenza standard 06/10/2022 series) Goals Goal Patient Goal Associated Recent Patient-Stated? Author Type Problems Progress DH Home Medication Patient Yes Irish, Compliance and Facing Rekha Roman , Understanding Action Plan [facility] Note: Formatting of this note might be d ifferent from the original. Reduction in use of SMILEY to 1-2 nebulize r treatments per day. Measured by: Patient report Time frame: 6 months Insurance Payer Benefit Plan / Subscriber ID Effective Dates Phone Addre ss Type Group MEDICARE MEDICARE PART [id number] 2021-Presen [phone] [place] [address] [place] [id number] 2021-Prese [phone] [address] [place] [address] MEDICAID FORMERLY [facility] MEDICAID [place] [id number] 2020-Prese [phone] [address] [place] [address] Care Teams Police Liaison Officer Relationship Specialty Start Date End Date Brandee Fuchs, ENVIRONMENTAL SAMPLER PCP - General Family Medicine 01/17/19 [address] [place], [place] [id number]
--- OUTSIDE RECORDS SUMMARY | 2022-07-09 01:13 | XMS_ITS | Encounter Summary ---
:1975 Author Organization [facility] [place] [address] Care Team Providers Name Role Phone Brandee Fuchs APRN Primary Care Provider Reason for Visit Reason Comments Medication Refill Encounter Details Date Type Department Care Team Description 06/12/2021 Refill Pulmonology at [facility], Nuha Mendez MD [facility] K[address] [facility] [place] [address] Pulmonary Medicine [phone] [place] [address] (Wo rk) Social History Tobacco Use Types [...] Home Medication Patient Yes Irish, Manny and Erna Jones Action Plan [facility] Note: Formatting of this note might be d ifferent from the original. Reduction in use of SMILEY to 1-2 nebulize r treatments per day. Measured by: Patient report Time frame: 6 months documented as of this encounter Visit Diagnoses Not on filedocumented in this encounter Care Teams Body Die Maker Relationship Specialty Start Date End Date Brandee Fuchs APRN PCP - General Family Medicine 4/10/19 [address] [place] [address] documented as of this encounter
--- OUTSIDE RECORDS SUMMARY | 2022-07-09 01:13 | XMS_ITS | Encounter Summary ---
:1975 Author Organization [facility] [place] [address] Care Team Providers Name Role Phone Brandee Fuchs MAVIS Primary Care Provider Reason for Visit Reason Comments Prior Authorization Fasenra 30mg pen Encounter Details Date Type Department Care Team Description 06/26/2021 Specialty Pharmacy [place] [facility] [place] Prior Authorization [facility] Tracy Dusty (Fasenra 30mg pen) [place] [id number] Social History Tobacco Use Types Packs/Day Years Used Date Former Smoker Cigarettes 0.5 11 Quit: 01/05/20 03 Smokeless Tobacco: Never Used Alcohol Use Standard Drinks/Week Comments No 0 (1 standard drink = 0.6 oz pure alcoho l) Sex Assigned at Date Recorded Not on file documented as of this encounter Progress Notes Tracy Huang - 06/26/2021 10:22 AM EDTSummary: Aldo maintenance PA submission [facility], Medication Prior Authorization Patient: Malu De Patient : 1975 Patient Address: [address] [place] [phone] (home) Medication Name: FASENRA PEN 30 MG/ML SUBCUTANEOUS AUTO-INJECTOR Medication ID: [id number] [place] [facility] Patient Location Comment: Subscriber Insurance: [place] Subscriber Insurance Comment: Physician: HELEN RODGERS Physician Comment: Sent Via: Fax Moreno: N/A Ref/Case/PA#: N/A Medication Strength Frequency Requested: Fasenra - inject one pen subq every 56 days Qty/Day Supply: New Start: Change in Dose Diagnosis & ICD-10 Code: J45.50, severe persistent asthma Patient Notified: Left Voicemessage Submission Notes: PA required for maintenance dose of Fasenra Tracy Huang 06/26/21 10:25 AM Tracy Huang - 06/26/2021 10:22 AM EDTSummary: Fasenra maint dose PA approval [facility], Prior Authorization Approval Medication Name: FASENRA PEN 30 MG/ML SUBCUTANEOUS AUTO-INJECTOR Medication ID: [id number] Approval Dates: 06/26/2021 to 09/25/2021 Insurance requirements/notes: Can fill at pharmacy Other Notes: None Case/Reference #: [id number] Approval notification Received via: Fax Copay: $3.00 Copay assistance: None Copay Notes: Copay is affordable Insurance mandated Pharmacy: [facility] Fillable at [facility]: Yes Pharmacy staff will be reaching out to the patient to inform them of their medication's approval by their insurance. If applicable, a pharmacist will speak with the patient to offer our specialty pharmacy services and to arrange delivery of their medication. Tracy Huang 06/26/21 10:45 AM documented in this encounter Plan of Treatment Not on filedocumented as of this encounter Goals Goal Patient Goal Associated Recent Patient-Stated? Author Type Problems Progress DH Home Medication Patient Yes Irish, Compliance and Facing Rekha Roman , Understanding Action Plan [facility] Note: Formatting of this note might be d ifferent from the original. Reduction in use of SMILEY to 1-2 nebulize r treatments per day. Measured by: Patient report Time frame: 6 months documented as of this encounter Visit Diagnoses Not on filedocumented in this encounter Care Teams Senior Talent Acquisition Specialist Relationship Specialty Start Date End Date Brandee Fuchs, METAL RECLAMATION KETTLE TENDER PCP - General Family Medicine 01/17/19 [address] [place] [address] documented as of this encounter
--- OUTSIDE RECORDS SUMMARY | 2022-07-09 01:13 | XMS_ITS | Encounter Summary ---
:1975 Author Organization [facility] [place] [address] Care Team Providers Name Role Phone Daniellino Brandee Lino GAMBLE Primary Care Provider Encounter Details Date Type Department Care Team Description 05/28/2021 Specialty Pharmacy Pharmacy at [facility] Robina Stanford, [facility] [place] [address] Social History Tobacco Use Types Packs/Day Years Used Date Former Smoker Cigarettes 0.5 11 Quit: 01/05/20 03 Smokeless Tobacco: Never Used Alcohol Use Standard Drinks/Week Comments No 0 (1 standard drink = 0.6 oz pure alcoho l) Sex Assigned at Date Recorded Not on file documented as of this encounter Progress Notes Robina Apple RPH - 05/28/2021 10:53 AM EDT Updated patient's medication list to reflect currently taking Fasenra. Robina Apple RPH 05/28/2021 10:55 AM documented in this encounter Plan of Treatment Not on filedocumented as of this encounter Goals Goal Patient Goal Associated Recent Patient-Stated? Author Type Problems Progress Home Medication Patient Yes Irish, Compliance and Facing Rekha Rmoan Understanding Action Plan [facility] Note: Formatting of this note might be d ifferent from the original. Reduction in use of SMILEY to 1-2 nebulize r treatments per day. Measured by: Patient report Time frame: 6 months documented as of this encounter Visit Diagnoses Not on filedocumented in this encounter Care Teams Web Page Developer Relationship Specialty Start Date End Date Brandee Fuchs APRN PCP - General Family Medicine 01/17/19 [address] [place] [address] documented as of this encounter
--- OUTSIDE RECORDS SUMMARY | 2022-07-09 01:13 | XMS_ITS | Encounter Summary ---
:1975 Author Organization [facility] [place] [address] Care Team Providers Name Role Phone Brandee Fuchs MAVIS Primary Care Provider Reason for Visit Reason Comments Medication Management Encounter Details Date Type Department Care Team Description 10/05/2021 Specialty Pharmacy Pharmacy at [facility] Robina Stanford [facility], [place] [address] Social History Tobacco Use Types Packs/Day Years Used Date Former Smoker Cigarettes 0.5 11 Quit: 01/05/20 03 Smokeless Tobacco: Never Used Alcohol Use Standard Drinks/Week Comments No 0 (1 standard drink = 0.6 oz pure alcoho l) Sex Assigned at Date Recorded Not on file documented as of this encounter Progress Notes Robina Apple [facility] - 10/05/2021 9:46 AM EST Clinical Management Plan: Transfer of Care/Discharge Specialty Services Specialty Pharmacy Consultation; Robina Apple [facility] Comprehensive Medication Management (CMM) Malu De [address] [facility] [address] Telephone Information: Work Phone Not on file. Is the patient transferring services to a different Specialty Pharmacy or discontinuing the medication? Discontinuing Services Medication: Fasenra Reason for discontinuation or transfer: patient did not reply to numerous phone calls over the course of the last 6 weeks Approximate date of discontinuation or transfer: 10/05/21 Patient's response to therapy: unknown, unable to reach patient Summary of services provided by [facility]: consults, refill reminders, benefits investigation, on-call pharmacist Summary of on-going needs: to be seen by provider Referral for additional services (if applicable): n/a Instructions provided to patient about discharge/transfer: yes - LVM letting patient know she would need to call back to report benefit and be scheduled with MD Provider aware of discontinuation or transfer: yes Patient understands no changes to current drug regimen were made at the appointment and that [facility] is providing recommendations (summary located at top of note) for provider review and follow up. Robina Apple [facility] 10/05/21 9:47 AM documented in this encounter Plan of Treatment Not on filedocumented as of this encounter Goals Goal Patient Goal Associated Recent Patient-Stated? Author Type Problems Progress DH Home Medication Patient Yes Irish, Compliance and Facing Rekha Roman Understanding Action Plan [facility] Note: Formatting of this note might be d ifferent from the original. Reduction in use of SMILEY to 1-2 nebulize r treatments per day. Measured by: Patient report Time frame: 6 months documented as of this encounter Visit Diagnoses Not on filedocumented in this encounter Care Teams Milling Planer Operator Relationship Specialty Start Date End Date Brandee Fuchs APRN PCP - General Family Medicine 01/17/19 [address] [place] [address] documented as of this encounter
--- OUTSIDE RECORDS SUMMARY | 2022-07-09 01:13 | XMS_ITS | Encounter Summary ---
:1975 Author Organization [facility] [place] [address] Care Team Providers Name Role Phone Brandee Fuchs APRN Primary Care Provider Reason for Visit Consultation (Urgent) - Closed Specialty Diagnoses / Procedures Referred By Contact Refer red To Contact Hematology and Diagnoses Other iron deficiency anemias Secondary polycythemia Brandee Fuchs APRN Gautier, Marc, MD Oncology [address] [place] [address] HEMATOLOGY/ONCOLOGY DEPT. [place], [place] [address] Phone: Fax: Referral ID Status Reason Start Date Expiration Date Visits V isits Requested Authorized [id number] Closed Consult, Test 06/12/2021 06/12/2022 [facility] PCP Updated and/or Approved Encounter Details Date Type Department Care Team Description 06/29/2021 Office Visit Hematology/Oncology Hubert Salas MD [facility] DR HEMATOLOGY/[place] [address] [facility] [address] [place] [address] [place] [address] anemia, unspecified [address] [facility] iron deficiency [place], [place] anemia type (Primary [id number] Dx) [phone] Social History Tobacco Use Types Packs/Day Years Used Date Former Smoker Cigarettes 0.5 11 Quit: 01/05/20 03 Smokeless Tobacco: Never Used Alcohol Use Standard Drinks/Week Comments No 0 (1 standard drink = 0.6 oz pure alcoho l) Sex Assigned at Date Recorded Not on file documented as of this encounter Last Filed Vital Signs Vital Sign Reading Time Taken Comments Blood Pressure 125/83 06/29/2021 3:09 PM EDT Pulse 80 06/29/2021 3:09 PM EDT Temperature 36.1 ??C (96.9 ??F) 06/29/2021 3:09 PM EDT Respiratory Rate 16 06/29/2021 3:09 PM EDT Oxygen Saturation 99% 06/29/2021 3:09 PM EDT Inhaled Oxygen Concentration - - Weight - - Height - - Body Mass Index - - documented in this encounter Progress Notes Ronnell Salas MD - 06/29/2021 3:00 PM EDT Images from the original note were not included. [place] [address] [phone] Malu De is being seen for the evaluation of polycythemia Assessment & Plan: Malu De is a 45 y.o. female patient with a past medical history significant for asthma, allergies, fibromyalgia and hypermobility syndrome c/w Ehler-Danlos Type III, GERD and prior iron deficiency with poor tolerance of oral iron but with improvement with iron infusions. Her last iron infusionwas about 1 year ago in fall. She had followup bloodwork over the summer which identified mild erythrocytosis and was re-referred. Discussed that I would not be overly concerned by the slight elevation of her Hgb. May well be a secondary erythrocytosis related to her asthma but may also be isolated anomaly. Remainder of her CBC unremarkable which is also reassuring. Plan: - Repeat CBC and iron studies now - Once I have those we can determine if any further investigations are needed Ronnell Salas MD, MS 06/29/2021 Ronnell Salas MD, MS 07/03/2021 Medical Oncology & Hematology [facility] CC: rBandee Fuchs, BASKET MACHINE OPERATOR HPI/Interval History/Subjective: Malu De is a 45 y.o. female patient with a past medical history significant for asthma, allergies, fibromyalgia and hypermobility syndrome c/w Ehler-Danlos Type III, GERD and prior iron deficiency with poor tolerance of oral iron but with improvement with iron infusions. Her last iron infusionwas about 1 year ago in Fall of 2019. She had followup bloodwork over the summer which identified mild erythrocytosis and was re-referred. Malu reports that she continues to have significant issues with fatigue. She is also treated for asthma and was recently started on fasenra (3rd shot this week) without much improvement in her breathing. LMP several weeks ago. Generally light 2-3 days. No oral iron Had tried oral iron in 2015 and then again when she Dr. Hernandez-tried QOD dosing. Tried different antimeetics and schedules but causes a lot of GI distress. Never got a colonoscopy which had been recommended when she had seen Dr. Hernandez (prior EGD was unrevealing) - does not like going under anesthesia based on other prior negative expereinces. Having increasing difficulties with her joints. 8mg prednisone - had been decreased to allow for her to try and meloxicam Craves OJ -not clearly better with the iron. No other PICA Vegetarian - eats vegetables that are iron containing Social History/Support Network: Home situation: Single. Two children. Daughter in 2019 at age 23 in a MVA. 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 Not working due to asthma Tobacco use:1/2 ppd x 12 years and quit at age of 28 Alcohol use: None Drug use: Financial Distress: Family History: Mother- Diabetes II Father- Chronic alcoholism, of heart and liver failure at age 50. She did not know him No known history of lung cancer ONCBCN ONCOLOGY (AMB) 02/07/2020 02/21/2020 02/28/2020 06/19/2020 06/26/2020 07/03/2020 iron sucrose (Venofer) IV - - - 300 mg - 300 mg iron sucrose (Venofer) IV 300 mg 300 mg 300 mg - 300 mg - Patient Active Problem List Diagnosis Date Noted ??? Fatigue ??? Fibromyalgia ??? Asthma 09/20/2016 Allergies Allergen Reactions ??? Savella [Milnacipran] Other (See Comments) Nerve temors ??? Dupixent Pen [Dupilumab] Rash Rash intermittently on extremities. ??? Acetaminophen Mouth blisters ??? Amitriptyline Anxiety ??? Celebrex [Celecoxib] Nausea and palpitations ??? Cyclobenzaprine Other (See Comments) Small blisters ??? Cymbalta [Duloxetine] Anxiety ??? Dulera [Mometasone-Formoterol] Other (See Comments) Mental alterations ??? Gabapentin Other (See Comments) Lachine like body was shaking, nerves vibrating, hands went numb ??? Indomethacin ??? Tramadol Other (See Comments) Anxiety, foggy head, unaware ??? Vicodin [Hydrocodone-Acetaminophen] Mouth blisters Medications 04/27/212224 Medication Sig Taking? Fasenra Pen 30 mg/mL Auto-Injector Inject 30 mg subcutaneously Every 8 Weeks. predniSONE (Deltasone) 5 mg Tablet TAKE 1 TABLET BY MOUTH DAILY WITH 1MG TABLETS TO EQUAL 8MG DAILY predniSONE (Deltasone) 1 mg Tablet TAKE 3 TABLETS BY MOUTH DAILY WITH 5MG TO EQUAL 8MG DAILY meloxicam (MOBIC) 7.5 mg Tablet Take 1 tablet by mouth daily. Take with food. TURMERIC ORAL Take by mouth. dexamethasone (Decadron) 4 mg Tablet Take 1 tablet by mouth daily. Take one tablet daily X3 days following Iron infusion. dexamethasone (Decadron) 4 mg Tablet Take 1 tablet by mouth daily. Take daily x 3 days after each iron infusion ipratropium-albuteroL (DUONEB) 0.5 mg-3 mg(2.5 mg base)/3 mL Solution for Nebulization Take 3 mLs bynebulization every 6 hours as needed. cholecalciferol, Vitamin D3, 1,000 unit Capsule Take 1,000 Units by mouth daily. ondansetron (ZOFRAN) 4 mg Tablet Take 1 tablet by mouth 2 times daily as needed for Nausea. Take 1 hour prior to oral iron. multivitamin (THERAGRAN) Tablet Take 1 tablet by mouth daily. folic acid (FOLVITE) 1 mg Tablet Take 1 mg by mouth daily. albuterol (PROVENTIL) 2.5 mg /3 mL (0.083 %) Solution for Nebulization Take 2.5 mg by nebulization as needed. montelukast (SINGULAIR) 10 mg Tablet Take 10 mg by mouth daily. omeprazole (PRILOSEC) 40 mg Capsule, Delayed Release(E.C.) Take 40 mg by mouth daily. BREO ELLIPTA 200-25 mcg/dose Disk with Device Inhale 1 puff into the lungs daily. SPIRIVA RESPIMAT 1.25 mcg/actuation Mist Inhale 2 puffs into the lungs daily. triamcinolone (NASACORT OR NASACORT OTC) 55 mcg Aerosol, Ethel 2 sprays by Nasal route daily. I reviewed the problem list, allergies, medications, past medical history, social history and familyhistory within the EPIC encounter. Pertinent details are noted above. Pertinent positives and negative from the Review of Systems are as summarized above in the HPI. Physical Exam: Wt Readings from Last 3 Encounters: 06/12/20 86.2 kg (190 lb) 03/13/20 91.2 kg (201 lb) 02/26/20 83.9 kg (185 lb) Temp Readings from Last 3 Encounters: 10/09/20 36.7 ??C (98 ??F) (Temporal) 07/08/20 36.6 ??C (97.9 ??F) 07/03/20 36.5 ??C (97.7 ??F) (Temporal) BP Readings from Last 3 Encounters: 10/09/20 121/79 07/03/20 108/54 06/26/20 114/62 Pulse Readings from Last 3 Encounters: 10/09/20 77 06/26/20 88 06/19/20 85 There is no height or weight on file to calculate BSA. Wt Readings from Last 3 Encounters: 06/12/20 86.2 kg (190 lb) 03/13/20 91.2 kg (201 lb) 02/26/20 83.9 kg (185 lb) KPS Score ECOG Grade Definition 90-100 0 Fully active, able to carry on all pre-disease performance without restriction 70-80 1 Restricted in physically strenuous activity but ambulatory and able to carry out work of a light or sedentary nature, e.g., light house work, office work X 50-60 2 Ambulatory and capable of all selfcare but unable to carry out any work activities; up andabout more than 50% of waking hours 30-40 3 Capable of only limited selfcare; confined to bed or chair more than 50% of waking hours 10-20 4 Completely disabled; cannot carry on any selfcare; totally confined to bed or chair Constitutional: Oriented to person, place, and time. No distress. Appears well-developed. HENT: Mouth/Throat: Deferred due to COVID. Wearing a mask Eyes: No scleral icterus. Cardiovascular: Normal rate and regular rhythm. Exam reveals no friction rub. No murmur heard. Pulmonary/Chest: Effort normal. No stridor. No respiratory distress. No wheezes. No rales. Abdominal: Soft. No distension. No tenderness.No rebound. Musculoskeletal: Normal range of motion. No edema. Lymphadenopathy: No cervical adenopathy. Neurological: Alert and oriented to person, place, and time. CN are grossly intact and non-focal. Skin: Skin is warm and dry. No rash noted. No erythema. Psychiatric: Normal mood and affect. Behavior is normal. Thought content normal. Review of Laboratory Data: Review of Imaging Data: I personally reviewed the reports and images in the studies as detailed in the oncology overview above. Review of Pathology Data: I personally reviewed the reports of the pathology as detailed in the oncology overview above. documented in this encounter Plan of Treatment Scheduled Orders Name Type Priority Associated Diagnoses Order S chedule CBC (with Diff) Lab Routine Iron deficiency anemia, E xpected: 07/06/2021 unspecified iron deficiency (Approximate), Expires: anemia type 06/29/2022 documented as of this encounter Goals Goal Patient Goal Associated Recent Patient-Stated? Author Type Problems Progress DH Home Medication Patient Yes Irish, Compliance and Facing Rekha Roman , Understanding Action Plan [facility] Note: Formatting of this note might be d ifferent from the original. Reduction in use of SMILEY to 1-2 nebulize r treatments per day. Measured by: Patient report Time frame: 6 months documented as of this encounter Visit Diagnoses Diagnosis Iron deficiency anemia, unspecified iron deficiency anemia type - Primary documented in this encounter Care Teams Plumbing Assembler Installer Relationship Specialty Start Date End Date Brandee Fuchs, BASKET MACHINE OPERATOR PCP - General Family Medicine 01/17/19 [address] [place] [address] documented as of this encounter
--- OUTSIDE RECORDS SUMMARY | 2022-07-09 01:13 | XMS_ITS | Encounter Summary ---
:1975 Author Organization [facility] [place] [address] Care Team Providers Name Role Phone Brandee Fuchs Obdulia GAMBLE Primary Care Provider Encounter Details Date Type Department Care Team Description 04/20/2022 Telephone Pulmonology at [facility] [place] [address] Social History Tobacco Use Types Packs/Day Years Used Date Former Smoker Cigarettes 0.5 11 Quit: 01/05/20 03 Smokeless Tobacco: Never Used Alcohol Use Standard Drinks/Week Comments No 0 (1 standard drink = 0.6 oz pure alcoho l) Sex Assigned at Date Recorded Not on file documented as of this encounter Miscellaneous Notes Telephone Encounter - Elva Howard - 04/20/2022 2:39 PM EDT lm to [facility] appt documented in this encounter Plan of Treatment Not on filedocumented as of this encounter Goals Goal Patient Goal Associated Recent Patient-Stated? Author Type Problems Progress Home Medication Patient Yes Irish, Manny and Facing Rekha Roman Understanding Action Plan [facility] Note: Formatting of this note might be d ifferent from the original. Reduction in use of SMILEY to 1-2 nebulize r treatments per day. Measured by: Patient report Time frame: 6 months documented as of this encounter Visit Diagnoses Not on filedocumented in this encounter Care Teams Medical Referral Coordinator Relationship Specialty Start Date End Date Brandee Fuchs, RESIDENT CAREGIVER PCP - General Family Medicine 01/17/19 [address] [place] [address] documented as of this encounter
--- OUTSIDE RECORDS SUMMARY | 2022-07-09 01:13 | XMS_ITS | Encounter Summary ---
:1975 Author Organization [facility] [place] [address] Care Team Providers Name Role Phone DanielBrandee huynh Obdulia GAMBLE Primary Care Provider Encounter Details Date Type Department Care Team Description 04/26/2022 Telephone Pulmonology at [facility] [address] Social History Tobacco Use Types Packs/Day Years Used Date Former Smoker Cigarettes 0.5 11 Quit: 01/05/20 03 Smokeless Tobacco: Never Used Alcohol Use Standard Drinks/Week Comments No 0 (1 standard drink = 0.6 oz pure alcoho l) Sex Assigned at Date Recorded Not on file documented as of this encounter Miscellaneous Notes Telephone Encounter - Elva Howard - 04/26/2022 4:38 PM EDT tried to resched her appt.w/jude called a number of times.sent letter documented in this encounter Plan of Treatment Not on filedocumented as of this encounter Goals Goal Patient Goal Associated Recent Patient-Stated? Author Type Problems Progress DH Home Medication Patient Yes Irish, Compliance and Facing Rekha Roman Understanding Action Plan [facility] Note: Formatting of this note might be d ifferent from the original. Reduction in use of SMILEY to 1-2 nebulize r treatments per day. Measured by: Patient report Time frame: 6 months documented as of this encounter Visit Diagnoses Not on filedocumented in this encounter Care Teams Reed Dipper Relationship Specialty Start Date End Date Brandee Fuchs, MUSICAL PERFORMER PCP - General Family Medicine 01/17/19 [address] [place] [address] documented as of this encounter
--- OUTSIDE RECORDS SUMMARY | 2022-07-09 01:14 | XMS_ITS | Encounter Summary ---
:1975 Author Organization [facility] [place] [address] Care Team Providers Name Role Phone Brandee Fuchs MAVIS Primary Care Provider Encounter Details Date Type Department Care Team Description 04/02/2021 Telephone Pulmonology at [facility] Nuha Dubon MD [facility] [address] [place] [address] Pulmonary Medicine [phone] [place] [phone] (Wo rk) Social History Tobacco Use Types Packs/Day Years Used Date Former Smoker Cigarettes 0.5 11 Quit: 01/05/20 03 Smokeless Tobacco: Never Used Alcohol Use Standard Drinks/Week Comments No 0 (1 standard drink = 0.6 oz pure alcoho l) Sex Assigned at Date Recorded Not on file documented as of this encounter Miscellaneous Notes Telephone Encounter - Nuha Dubon MD - 04/02/2021 5:00 PM EDT Received results of outside hospital chest x-ray performed on 04/01/2021; lungs are generally clear with only a small region of platelike atelectasis on the left base and nothing to explain her ongoing dyspnea. Called Malu to let her know, however her phone went to etaskr. I left a generic message indicating that results were reassuring and that I would not recommend any changes in plan right now, and that she is welcome to call with any questions or to discuss further. Nuha Dubon MD documented in this encounter Plan of Treatment Not on filedocumented as of this encounter Goals Goal Patient Goal Associated Recent Patient-Stated? Author Type Problems Progress DH Home Medication Patient Yes Irish, Compliance and Facing Rekha Roman Understanding Action Plan [facility] Note: Formatting of this note might be d ifferent from the original. Reduction in use of SMILEY to 1-2 nebulize r treatments per day. Measured by: Patient report Time frame: 6 months documented as of this encounter Visit Diagnoses Not on filedocumented in this encounter Care Teams Terrazzo Mechanic Helper Relationship Specialty Start Date End Date Brandee Fuchs, TACK PULLER PCP - General Family Medicine 01/17/19 [address] [place] [address] documented as of this encounter
--- OUTSIDE RECORDS SUMMARY | 2022-07-09 01:14 | XMS_ITS | Encounter Summary ---
:1975 Author Organization [facility] [place] [address] Care Team Providers Name Role Phone DanielBrandee huynh Obdulia GAMBLE Primary Care Provider Encounter Details Date Type Department Care Team Description 07/04/2020 Telephone Pulmonology at [facility] [place] [address] Social History Tobacco Use Types Packs/Day Years Used Date Former Smoker Cigarettes 0.5 11 Quit: 01/05/20 03 Smokeless Tobacco: Never Used Alcohol Use Standard Drinks/Week Comments No 0 (1 standard drink = 0.6 oz pure alcoho l) Sex Assigned at Date Recorded Not on file documented as of this encounter Miscellaneous Notes Telephone Encounter - Jaimie Simmons LNA - 07/04/2020 8:09 AM EDT Call from pt cancelling her pft and appt with Dr. Dubon today. She had her infusions yesterday and isnot feeling well. Wants to reschedule for in clinic, let pt know I will send a message to Dr. Dubon and see where she can fit her. documented in this encounter Plan of Treatment Not on filedocumented as of this encounter Goals Goal Patient Goal Associated Recent Patient-Stated? Author Type Problems Progress Home Medication Patient Yes Irish, Compliance and Facing Melyssia J , Understanding Action Plan [facility] Note: Formatting of this note might be d ifferent from the original. Reduction in use of SMILEY to 1-2 nebulize r treatments per day. Measured by: Patient report Time frame: 6 months documented as of this encounter Visit Diagnoses Not on filedocumented in this encounter Care Teams Service Desk Analyst Relationship Specialty Start Date End Date Brandee Fuchs APRN PCP - General Family Medicine 01/17/19 [address] [place] [address] documented as of this encounter
--- OUTSIDE RECORDS SUMMARY | 2022-07-09 01:14 | XMS_ITS | Encounter Summary ---
:1975 Author Organization [facility] [place] [address] Care Team Providers Name Role Phone Brandee Fuchs MAVIS Primary Care Provider Reason for Visit Reason Comments Specialty Pharmacy Review Encounter Details Date Type Department Care Team Description 06/25/2020 Specialty Pharmacy Pharmacy at [facility] [place] [address] Social History Tobacco Use Types Packs/Day Years Used Date Former Smoker Cigarettes 0.5 11 Quit: 01/05/20 03 Smokeless Tobacco: Never Used Alcohol Use Standard Drinks/Week Comments No 0 (1 standard drink = 0.6 oz pure alcoho l) Sex Assigned at Date Recorded Not on file documented as of this encounter Progress Notes Isabella Chairez - 06/25/2020 11:59 PM EDT The [facility] has completed a benefits investigation for Malu De to review their eligibility to fill at [facility]. Per patient's medication list they are prescribed Fasenra and Fasenra is able to be filled at the [facility]. documented in this encounter Plan of Treatment Not on filedocumented as of this encounter Goals Goal Patient Goal Associated Recent Patient-Stated? Author Type Problems Progress Home Medication Patient Yes Irish, Compliance and Facing Rekha Roman Understanding Action Plan [facility] Note: Formatting of this note might be d ifferent from the original. Reduction in use of SMILEY to 1-2 nebulize r treatments per day. Measured by: Patient report Time frame: 6 months documented as of this encounter Visit Diagnoses Not on filedocumented in this encounter Care Teams Core Finisher Relationship Specialty Start Date End Date Brandee Fuchs APRN PCP - General Family Medicine 01/17/19 [address] [place] [address] documented as of this encounter
--- OUTSIDE RECORDS SUMMARY | 2022-07-09 01:14 | XMS_ITS | Encounter Summary ---
:1975 Author Organization [facility] [place] [address] Care Team Providers Name Role Phone Daniellino Brandee Steiner APRN Primary Care Provider Encounter Details Date Type Department Care Team Description 07/22/2020 Telephone Sleep Center at [facility] Wendy Webb [address] [place] [address] Social History Tobacco Use Types Packs/Day Years Used Date Former Smoker Cigarettes 0.5 11 Quit: 01/05/20 03 Smokeless Tobacco: Never Used Alcohol Use Standard Drinks/Week Comments No 0 (1 standard drink = 0.6 oz pure alcoho l) Sex Assigned at Date Recorded Not on file documented as of this encounter Miscellaneous Notes Telephone Encounter - Wendy Webb - 07/22/2020 11:19 AM EDT I called pt and left a message for her to call back to reschedule her overnight sleep study. documented in this encounter Plan of Treatment Not on filedocumented as of this encounter Goals Goal Patient Goal Associated Recent Patient-Stated? Author Type Problems Progress DH Home Medication Patient Yes Irish, Compliance and Facing Rekha Roman Understanding Action Plan [facility] Note: Formatting of this note might be d ifferent from the original. Reduction in use of SMILEY to 1-2 nebulize r treatments per day. Measured by: Patient report Time frame: 6 months documented as of this encounter Visit Diagnoses Not on filedocumented in this encounter Care Teams Manager Medical Relationship Specialty Start Date End Date Brandee Fuchs APRN PCP - General Family Medicine 01/17/19 [address] [place] [address] documented as of this encounter
--- OUTSIDE RECORDS SUMMARY | 2022-07-09 01:14 | XMS_ITS | Encounter Summary ---
:1975 Author Organization [facility] [place] [address] Care Team Providers Name Role Phone Brandee Fuchs APRN Primary Care Provider Encounter Details Date Type Department Care Team Description 10/09/2020 Infusion Hematology Oncology at [facility] No Show [address] [place], [place] [phone] Social History Tobacco Use Types [...] Facing Rekha Roman Understanding Action Plan [facility] Note: Formatting of this note might be d ifferent from the original. Reduction in use of SMILEY to 1-2 nebulize r treatments per day. Measured by: Patient report Time frame: 6 months documented as of this encounter Visit Diagnoses Not on filedocumented in this encounter Care Teams Sign Designer Relationship Specialty Start Date End Date Brandee Fuchs APRN PCP - General Family Medicine 01/17/19 [address] [place], [place] [address] documented as of this encounter
--- OUTSIDE RECORDS SUMMARY | 2022-07-09 01:14 | XMS_ITS | Encounter Summary ---
:1975 Author Organization [facility] [place] [address] Care Team Providers Name Role Phone Brandee Fuchs MAVIS Primary Care Provider Encounter Details Date Type Department Care Team Description 07/08/2020 Telephone Pulmonology at [facility] [place] [address] Social History Tobacco Use Types Packs/Day Years Used Date Former Smoker Cigarettes 0.5 11 Quit: 01/05/20 03 Smokeless Tobacco: Never Used Alcohol Use Standard Drinks/Week Comments No 0 (1 standard drink = 0.6 oz pure alcoho l) Sex Assigned at Date Recorded Not on file documented as of this encounter Miscellaneous Notes Telephone Encounter - Jaimie Simmons LNA - 07/08/2020 8:09 AM EDT LM for pt to call us back to confirm appts on 07/09, PFT and Dr. Dubon. documented in this encounter Plan of Treatment Not on filedocumented as of this encounter Goals Goal Patient Goal Associated Recent Patient-Stated? Author Type Problems Progress DH Home Medication Patient Yes Irish, Compliance and Facing Rekha Roman Understanding Action Plan [facility] Note: Formatting of this note might be d ifferent from the original. Reduction in use of SMILEY to 1-2 nebulize r treatments per day. Measured by: Patient report Time frame: 6 months documented as of this encounter Visit Diagnoses Not on filedocumented in this encounter Care Teams Tow Feeder Relationship Specialty Start Date End Date Brandee Fuchs APRN PCP - General Family Medicine 01/17/19 [address] [place] [address] documented as of this encounter
--- OUTSIDE RECORDS SUMMARY | 2022-07-09 01:14 | XMS_ITS | Encounter Summary ---
:1975 Author Organization [facility] [place] [address] Care Team Providers Name Role Phone Brandee Fuchs APRN Primary Care Provider Encounter Details Date Type Department Care Team Description 06/24/2020 Refill Pulmonology at [facility], Nuha Mendez MD [facility] [place] [address] Pulmonary Medicine [phone] [place] [id number] (Wo rk) Social History Tobacco Use Types [...] on filedocumented in this encounter Care Teams Hand Roller Relationship Specialty Start Date End Date Brandee Fuchs, HOT MIX OPERATOR PCP - General Family Medicine 01/17/19 [address] [place] [address] documented as of this encounter
--- OUTSIDE RECORDS SUMMARY | 2022-07-09 01:14 | XMS_ITS | Encounter Summary ---
:1975 Author Organization [facility] [place] [address] Care Team Providers Name Role Phone Brandee Fuchs MAVIS Primary Care Provider Reason for Visit Reason Comments Specialty Pharmacy Review Encounter Details Date Type Department Care Team Description 12/26/2020 Specialty Pharmacy Pharm[facility] at [facility] [place] [address] Social History Tobacco Use Types Packs/Day Years Used Date Former Smoker Cigarettes 0.5 11 Quit: 01/05/20 03 Smokeless Tobacco: Never Used Alcohol Use Standard Drinks/Week Comments No 0 (1 standard drink = 0.6 oz pure alcoho l) Sex Assigned at Date Recorded Not on file documented as of this encounter Progress Notes Isabella Chairez - 12/26/2020 11:59 PM EDT [facility] has completed a benefits investigation for Malu De to review their eligibility to fill at [facility]. Per patient's medication list they are prescribed Fasenra, however Malu hasn't started on therapy yet and will reach out to the - Pharmacy when she is ready to start. documented in this encounter Plan of Treatment Not on filedocumented as of this encounter Goals Goal Patient Goal Associated Recent Patient-Stated? Author Type Problems Progress Home Medication Patient Yes Irish, Compliance and Facing Rekha Roman Understanding Action Plan [facility] Note: Formatting of this note might be d ifferent from the original. Reduction in use of SMILEY to 1-2 nebulize r treatments per day. Measured by: Patient report Time frame: 6 months documented as of this encounter Visit Diagnoses Not on filedocumented in this encounter Care Teams Photographic Colorist Relationship Specialty Start Date End Date Brandee Fuchs, ASSISTANT SHIFT SUPERVISOR PCP - General Family Medicine 01/17/19 [address] [place] [address] documented as of this encounter
--- OUTSIDE RECORDS SUMMARY | 2022-07-09 01:14 | XMS_ITS | Encounter Summary ---
:1975 Author Organization [facility] [address] Care Team Providers Name Role Phone DanielBrandee huynh Obdulia GAMBLE Primary Care Provider Encounter Details Date Type Department Care Team Description 09/05/2020 Telephone [place]ology at [facility] [place] [address] Social History Tobacco Use Types Packs/Day Years Used Date Former Smoker Cigarettes 0.5 11 Quit: 01/05/20 03 Smokeless Tobacco: Never Used Alcohol Use Standard Drinks/Week Comments No 0 (1 standard drink = 0.6 oz pure alcoho l) Sex Assigned at Date Recorded Not on file documented as of this encounter Miscellaneous Notes Telephone Encounter - Silvano Lares - 09/05/2020 4:32 PM EST LMOAM X1 to schedule 3 month f/u (in person or telehealth) with Berkley Hernández. documented in this encounter Plan of Treatment Not on filedocumented as of this encounter Goals Goal Patient Goal Associated Recent Patient-Stated? Author Type Problems Progress Home Medication Patient Yes Irish, Compliance and Facing Rekha Roman Understanding Action Plan [facility] Note: Formatting of this note might be d ifferent from the original. Reduction in use of SMILEY to 1-2 nebulize r treatments per day. Measured by: Patient report Time frame: 6 months documented as of this encounter Visit Diagnoses Not on filedocumented in this encounter Care Teams Machinist Helper Relationship Specialty Start Date End Date Brandee Fuchs APRN PCP - General Family Medicine 01/17/19 [address] [place] [address] documented as of this encounter
--- OUTSIDE RECORDS SUMMARY | 2022-07-09 01:14 | XMS_ITS | Encounter Summary ---
:1975 Author Organization [facility] [place] [address] Care Team Providers Name Role Phone Brandee Fuchs Obdulia GAMBLE Primary Care Provider Encounter Details Date Type Department Care Team Description 12/29/2020 TH Visit Pulmonology at [place] Nuha Dubon, Severe persistent asthma, un specified whether complicated; (TeleHealth) [facility] Environmental allergies; [facility] (dyspnea on exertion) [facility] [id number] Pulmonary [phone] [place] [address] Social History Tobacco Use Types Packs/Day Years Used Date Former Smoker Cigarettes 0.5 11 Quit: 01/05/20 03 Smokeless Tobacco: Never Used Alcohol Use Standard Drinks/Week Comments No 0 (1 standard drink = 0.6 oz pure alcoho l) Sex Assigned at Date Recorded Not on file documented as of this encounter Progress Notes Nuha Dubon MD - 12/29/2020 10:30 AM EDT Images from the original note were not included. [facility] Section of Pulmonary and Critical Care Medicine Outpatient Consultation Date of Encounter: 12/29/2020 TELEHEALTH VISIT Patient identity was confirmed at beginning of this telehealth visit. Patient was informed that this telehealth visit is a billable encounter and stated agreement to continue. The patient is at home in [place]. This visit was conducted by phone due to lack of video-based telehealth capacity in the patient's home. Reason for Evaluation: Ms. Malu De returns to the pulmonary clinic for follow-up of asthma. I independently interviewed the patient, have examined the patient if this visit was conducted in theoffice and have reviewed available records. Dear Brandee Fuchs APRN, As you know, Malu De is a 45 y.o. woman with ongoing dyspnea in the setting of??history of??asthma, allergies, fibromyalgia and GERD, who was last evaluated in the pulmonary clinic??by telehealth visit September 2020. Mrs. De notes that she feels her asthma is a bit better controlled on chronic prednisone, but still has a lot of dyspnea with exertion, wheezing, intermittent chest tightness and is using rescue bronchodilators at least a couple times every day. She has not had acute flares or ED visits while on chronic low-dose prednisone. She occasionally has had high heart rates, she thinks this has happened more while on prednisone. She has checked her blood sugar occasionally, typically 130-180 in the mid- afternoon (hasn't been checking fasting.) She denies any new triggers for dyspnea or wheezing. She remains very nervous about starting new biologic drugs because she has had so many different reactions to medications (mostly pain/fibromyalgia medications.) She does not feel ready to try a new biologic therapy at this time. She is still sleeping poorly, often doesn't fall asleep until 4 or 5 AM, and identifies that pain and muscle tightness contributes to this. Fibromyalgia is causing ongoing diffuse pain. She reports she is still taking breo ellipta and spiriva inhalers, and using albuterol/duonebs PRN. She is taking singulair daily; she doesn't think it is causing mood changes (has been on for 6 years.) She is taking nasacort; has an open sore with some occasional bleeding. Prednisone dose is 10 mg daily. Current Medications at Start of Encounter: Outpatient Medications Prior to Visit Medication Sig Dispense Refill ??? predniSONE (Deltasone) 10 mg Tablet TAKE 1 TABLET BY MOUTH DAILY 30 tablet 3 ??? ipratropium-albuteroL (DUONEB) 0.5 mg-3 mg(2.5 mg base)/3 mL Solution for Nebulization Take 3 mLs by nebulization every 6 hours as needed. ??? albuterol (PROVENTIL) 2.5 mg /3 mL (0.083 %) Solution for Nebulization Take 2.5 mg by nebulization as needed. 0 ??? montelukast (SINGULAIR) 10 mg Tablet Take 10 mg by mouth daily. 0 ??? BREO ELLIPTA 200-25 mcg/dose Disk with Device Inhale 1 puff into the lungs daily. 1 ??? SPIRIVA RESPIMAT 1.25 mcg/actuation Mist Inhale 2 puffs into the lungs daily. 1 ??? triamcinolone (NASACORT OR NASACORT OTC) 55 mcg Aerosol, [place] 2 sprays by Nasal route daily. ??? TURMERIC ORAL Take by mouth. ??? Miscellaneous Medical Supply Misc Take by mouth Naltrexone 1.5 mg for 1 wk. If necessary and tolerated, increase by 1.5mg every wk up to a max dose of 4.5mg daily. (Patient not taking: Reported on 10/09/2020) 90 each 1 ??? benralizumab 30 mg/mL Auto-Injector Inject 30 mg subcutaneously every 28 days. 30mg subcutaneously every 28 days for the first 3 doses, then 30mg subcutaneously every 56 days. (Patient not taking: Reported on 06/26/2020) 1 mL 1 ??? dexamethasone (Decadron) 4 mg Tablet Take 1 tablet by mouth daily. Take one tablet daily X3 daysfollowing Iron infusion. 9 tablet 0 ??? dexamethasone (Decadron) 4 mg Tablet Take 1 tablet by mouth daily. Take daily x 3 days after each iron infusion 6 tablet 0 ??? cholecalciferol, Vitamin D3, 1,000 unit Capsule Take 1,000 Units by mouth daily. ??? ondansetron (ZOFRAN) 4 mg Tablet Take 1 tablet by mouth 2 times daily as needed for Nausea. Take1 hour prior to oral iron. 30 tablet 3 ??? multivitamin (THERAGRAN) Tablet Take 1 tablet by mouth daily. ??? folic acid (FOLVITE) 1 mg Tablet Take 1 mg by mouth daily. ??? omeprazole (PRILOSEC) 40 mg Capsule, Delayed Release(E.C.) Take 40 mg by mouth daily. 0 No facility-administered medications prior to visit. Physical Examination: Telephone visit, exam limited. Voice clear, no audible distress Pulmonary Function Test Results: Not repeated with this visit. Prior testing 12/2019 showed moderate restriction with positive bronchodilator response. Labs, Microbiology and Imaging: I personally reviewed relevant laboratory, microbiologic and radiology results which were significant for: No new chest imaging. Impression and Recommendations: Malu De is a 45 y/o woman with chronic??dyspnea in the setting of uncontrolled asthma with bronchodilator responsiveness, allergies, eosinophilia, GERD, and fibromyalgia, previously with frequent acute respiratory exacerbations requiring prednisone burst therapy. It seems her acute flares havebeen much better controlled while on low dose daily prednisone (10 mg daily), but chronic dyspnea has not resolved with this dose. As you recall she previously had a rash and did not perceive improvement in chronic dyspnea with a trial of dupixent. We again discussed the options of trying a different biologic therapy such as benralizumab which I think could provide sustained improvement in her asthmawith less risk for DM/osteoporosis than chronic prednisone, however Mrs. De remains very nervous about trying a new medication. She was open to hearing more about this from our specialty pharmacists, and I will ask them to reach out to her about this. She knows this is an option to try at any time when she is ready. We also discussed the option of increasing her daily prednisone dose a little to try to better address daily asthma symptoms, but she currently does not feel this is worthwhile. We will continue her current dose of prednisone 10 mg po daily for now. She also remains on triple inhaled therapy and allergy medications as outlined below. Given ongoing dyspnea we will repeat spirometry and DLCO as well as as chest xray with her next visit. Summary Recommendations: - continue prednisone 10 mg po daily until next visit - continue breo 200-50 daily, and spiriva 1.25 two puffs daily - continue albuterol nebs/MDI PRN - continue singulair and nasacort daily - she would like to hear more about benralizumab from our pharmacy; I will let them know. She is still unsure if she will want to start this but was encouraged to consider it and let me know - cxr with next visit to exclude alternative chronic pulmonary process - michelle/DLCO with next visit Follow-up in 2 months with in-office visit Thank you for involving me in Mrs. De's care. Please feel free to contact me with any further questions or concerns. I personally spent 22 minutes of this telephone/telehealth encounter with the patient discussing their pulmonary disease and treatment recommendations as outlined in my assessment and plan above. This visit involved a total of 25 minutes of clinical time on day of visit. Nuha Dubon MD [facility] PULMONOLOGY AT [facility] [address] Dept: [phone] Loc: [phone] documented in this encounter Plan of Treatment Not on filedocumented as of this encounter Goals Goal Patient Goal Associated Recent Patient-Stated? Author Type Problems Progress Home Medication Patient Yes Irish, Compliance and Facing Rekha Roman Understanding Action Plan [facility] Note: Formatting of this note might be d ifferent from the original. Reduction in use of SMILEY to 1-2 nebulize r treatments per day. Measured by: Patient report Time frame: 6 months documented as of this encounter Results Pulmonary Function Testing (04/22/2021 2:18 PM EDT) P athologist Signature FVC Actual 2.99 L [facility] PFT Pre-BD FVC Pre-BD % of 91 % [facility] PFT Predicted FVC Predicted 3.29 L [facility] PFT FVC Pre-BD -0.71 [facility] PFT Z-Score FVC Lower 2.61 L [facility] PFT Limits of Normal FEV1 Actual 2.35 L [facility] PFT Pre-BD FEV1 Pre-BD % 88 % [facility] PFT of Predicted FEV1 Predicted 2.68 L [facility] PFT FEV1 Pre-BD -0.97 [facility] PFT Z-Score FEV1 Lower 2.12 L [facility] PFT Limits of Normal FEV1 / FVC 79 % [facility] PFT Actual Pre-BD FEV1/FVC Pre-BD -0.48 [facility] PFT Z-Score FEV1 / FVC LLN 71 % [facility] PFT [id number] Actual 2.28 L/s [facility] PFT Pre-BD [id number] Pre-BD 81 % [facility] PFT % of Predicted [id number] 2.83 L/s [facility] PFT Predicted [id number] Pre-BD -0.73 [facility] PFT Z-Score DLCO Hb Actual 22.15 mL/min/mmHg [facility] PFT Pre-BD DLCO Hb Pre-BD 112 % [facility] PFT % of Predicted DLCO Hb Pre-BD 0.68 [facility] PFT Z-Score DLCO Hb 19.80 mL/min/mmHg [facility] PFT Predicted DLCO [facility] ACT 22.15 mL/min/mmHg [facility] PFT PRE-BD DLCO [facility]C PRE-BD 112 % [facility] PFT % of PRED DLCO [facility] PRE-BD 0.68 % [facility] PFT Z-SCORE DLCO [facility]C 19.80 mL/min/mmHg [facility] PFT Predicted DLCO/VA Actual 4.91 mL/min/mmHg [facility] PFT Pre-BD /L DLCO/VA Pre-BD 109 % [facility] PFT % of Predicted DLCO/VA Pre-BD 0.62 [facility] PFT Z-Score DLCO/VA 4.50 mL/min/mmHg [facility] PFT Predicted /L Specimen (Source) Anatomical Location Collection Method / Collectio n Time Received Time / Laterality Volume Narrative [facility] PFT - 04/22/2021 2:18 PM EDT FINDINGS: FEV1, FVC, and FEV1/VC are within normal limits. Diffusion capacity is normal. IMPRESSION: Normal spirometry. No diffus ion impairment. Compared to the last PFTs from 12/14/19, there has been an improvement in the FVC and FEV1. Procedure Note Mariam Gonzales MD - 04/23/2021 FINDINGS: FEV1, FVC, and FEV1/VC are wit hin normal limits. Diffusion capacity is normal. IMPRESSION: Normal spirometry. No diffus ion impairment. Compared to the last PFTs from 12/14/19, there has been an improvement in the FVC and FEV1. Nuha Dubon MD PFT ORDERABLES Performing Organization Address City/State/ZIP Code Phon e Number [facility] PFT documented in this encounter Visit Diagnoses Diagnosis Severe persistent asthma, unspecified wh ether complicated Environmental allergies Allergic rhinitis, cause unspecified CLEMENT (dyspnea on exertion) Other dyspnea and respiratory abnormalit y Severe persistent asthma, unspecified wh ether complicated documented in this encounter Care Teams Armed Security Officer Relationship Specialty Start Date End Date Brandee Fuchs, PIT MANAGER PCP - General Family Medicine 01/17/19 [address] [place] [address] documented as of this encounter
--- OUTSIDE RECORDS SUMMARY | 2022-07-09 01:14 | XMS_ITS | Encounter Summary ---
:1975 Author Organization [facility] [place] [address] Care Team Providers Name Role Phone DanielBrandee huynh Obdulia GAMBLE Primary Care Provider Encounter Details Date Type Department Care Team Description 09/11/2020 Telephone Pulmonology at [facility] [place] [address] Social History Tobacco Use Types Packs/Day Years Used Date Former Smoker Cigarettes 0.5 11 Quit: 01/05/20 03 Smokeless Tobacco: Never Used Alcohol Use Standard Drinks/Week Comments No 0 (1 standard drink = 0.6 oz pure alcoho l) Sex Assigned at Date Recorded Not on file documented as of this encounter Miscellaneous Notes Telephone Encounter - Silvano Lares - 09/11/2020 4:26 PM EST LMOAM X1 to schedule 3 month f/u (telehealth) with Dr. Dubon. documented in this encounter Plan of Treatment Not on filedocumented as of this encounter Goals Goal Patient Goal Associated Recent Patient-Stated? Author Type Problems Progress Home Medication Patient Yes Irish, Compliance and Facing Rekha Roman Understanding Action Plan [facility] Note: Formatting of this note might be d ifferent from the original. Reduction in use of SMLIEY to 1-2 nebulize r treatments per day. Measured by: Patient report Time frame: 6 months documented as of this encounter Visit Diagnoses Not on filedocumented in this encounter Care Teams Associate Professor Of Biblical Studies Relationship Specialty Start Date End Date Brandee Fuchs, WAFER FAB TECHNICIAN PCP - General Family Medicine 01/17/19 [address] [place] [address] documented as of this encounter
--- OUTSIDE RECORDS SUMMARY | 2022-07-09 01:14 | XMS_ITS | Encounter Summary ---
:1975 Author Organization [facility] [place] [address] Care Team Providers Name Role Phone Daniellino Brandee Lino GAMBLE Primary Care Provider Reason for Visit Reason Comments Chemotherapy venofer Encounter Details Date Type Department Care Team Description 06/26/2020 [facility]fusion [facility] [address] [facility] anemia type [place], [place] [phone] Social History Tobacco Use [...] Sign Reading Time Taken Comments Blood Pressure 114/62 06/26/2020 1:11 PM EDT Pulse 88 06/26/2020 1:11 PM EDT Temperature 36.4 ??C (97.5 ??F) 06/26/2020 1:11 PM EDT Respiratory Rate 16 06/26/2020 1:11 PM EDT Oxygen Saturation 98% 06/26/2020 1:11 PM EDT Inhaled Oxygen Concentration - - Weight - - Height - - Body Mass Index - - documented in this encounter Progress Notes Mandi Garay RN - 06/26/2020 1:00 PM EDT INFUSION THERAPY ADMINISTRATION NOTES TIME TREATMENT STARTED: 1310 TIME TREATMENT ENDED: 1515 DIAGNOSIS: anemia PROTOCOL:na CYCLE #: na REASON FOR VISIT: venofer SUBJECTIVE Malu De states vein in right wrist got swollen after last venofer infusion, used left hand this time. OBJECTIVE REACTIONS (DESCRIPTION, TIME, INTERVENTION AND EFFECTIVENESS) none ASSESSMENT Malu De was awake, alert and he tolerated treatment well. She waited 15 minutes following infusion as she needed to go home and take medicine she forgot at home. PLAN She will take dexamethasone 4 mg daily for three days starting tomorrow. documented in this encounter Plan of Treatment Not on filedocumented as of this encounter Goals Goal Patient Goal Associated Recent Patient-Stated? Author Type Problems Progress DH Home Medication Patient Yes Irish, Compliance and Facing Rekha Roman Understanding Action Plan [facility] Note: Formatting of this note might be d ifferent from the original. Reduction in use of SMILEY to 1-2 nebulize r treatments per day. Measured by: Patient report Time frame: 6 months documented as of this encounter Visit Diagnoses Diagnosis Iron deficiency anemia, unspecified iron deficiency anemia type documented in this encounter Administered Medications Inactive Administered Medications - up to 3 most recent administrations Medication Order MAR Action Action Date Dose Rate Site dexamethasone (Decadron) injection Given 06/26/2020 1:31 PM EDT 10 mg 10 mg 10 mg, Intravenous, ONCE, 1 dose, On Rachel 06/26/20 at 1300 iron sucrose (Venofer) 300 mg in New Bag 06/26/2020 1:40 PM ED T 300 mg 76.7 mL/hr sodium chloride 0.9% 115 mL 300 mg, Intravenous, WEEKLY, 1 dose, First dose (after last reorder) on Rachel 06/26/20 at 1300, Administer over 90 Minutes, Patients should be closely monitored for signs of hypersensitivity during and for at least 30 min after each administration. Dose 2 of 3 ondansetron (Zofran) tablet 8 mg Given 06/26/2020 1:29 PM EDT 8 mg 8 mg, Oral, ONCE, 1 dose, On Rachel 06/26/20 at 1300, Routine documented in this encounter Care Teams Damaged Freight Inspector Relationship Specialty Start Date End Date Brandee Fuchs, [employer] PCP - General Family Medicine 01/17/19 [address] [place] [address] documented as of this encounter
--- OUTSIDE RECORDS SUMMARY | 2022-07-09 01:14 | XMS_ITS | Encounter Summary ---
:1975 Author Organization [facility] [place] [address] Care Team Providers Name Role Phone Brandee Fuchs MAVIS Primary Care Provider Reason for Visit Reason Comments Specialty Pharmacy Review Encounter Details Date Type Department Care Team Description 08/06/2020 Specialty Pharmacy Pharm[place] [facility] [place] [address] Social History Tobacco Use Types Packs/Day Years Used Date Former Smoker Cigarettes 0.5 11 Quit: 01/05/20 03 Smokeless Tobacco: Never Used Alcohol Use Standard Drinks/Week Comments No 0 (1 standard drink = 0.6 oz pure alcoho l) Sex Assigned at Date Recorded Not on file documented as of this encounter Progress Notes Isabella Chairez - 08/06/2020 11:59 PM EDT The [facility] has completed a benefits investigation for Malu De to review their eligibility to fill at [facility]. Per patient's medication list they are prescribed Dupixent and Dupixent is able to be filled at the [facility]. documented in this encounter Plan of Treatment Not on filedocumented as of this encounter Goals Goal Patient Goal Associated Recent Patient-Stated? Author Type Problems Progress Home Medication Patient Yes Irish, Compliance and Facing Rekha Roman Understanding Action Plan [facility] Note: Formatting of this note might be d ifferent from the original. Reduction in use of SMILEY to 1-2 nebulize r treatments per day. Measured by: Patient report Time frame: 6 months documented as of this encounter Visit Diagnoses Not on filedocumented in this encounter Care Teams Blanching Machine Operator Relationship Specialty Start Date End Date Brandee Fuchs APRN PCP - General Family Medicine 01/17/[address] [place] [address] documented as of this encounter
--- OUTSIDE RECORDS SUMMARY | 2022-07-09 01:14 | XMS_ITS | Encounter Summary ---
:1975 Author Organization [facility] [place] [address] Care Team Providers Name Role Phone Brandee Fuchs MAVIS Primary Care Provider Reason for Visit Reason Onset Date Comments Other 03/23/2021 CXR order Encounter Details Date Type Department Care Team Description 03/23/2021 Telephone Pulmonology at [facility] Xin Shaffer (CXR order) [facility] [place] [address] RN [phone] Social History Tobacco Use Types Packs/Day Years Used Date Former Smoker Cigarettes 0.5 11 Quit: 01/05/20 03 Smokeless Tobacco: Never Used Alcohol Use Standard Drinks/Week Comments No 0 (1 standard drink = 0.6 oz pure alcoho l) Sex Assigned at Date Recorded Not on file documented as of this encounter Miscellaneous Notes Telephone Encounter - Chucky Shaffer RN - 03/23/2021 2:28 PM EDT RN refaxed copy of CXR order requisition to [facility]. Attached to this was a copy of the patient's demographics. Initial fax submission to verified fax number errored x [phone]. RN called and was able to get a second fax number. Confirmation time stamped for 03/23/2021 @ 1042. 4 pages with coversheet. documented in this encounter Plan of Treatment Not on filedocumented as of this encounter Goals Goal Patient Goal Associated Recent Patient-Stated? Author Type Problems Progress DH Home Medication Patient Yes Irish, Compliance and Facing Rekha Roman Understanding Action Plan [facility] Note: Formatting of this note might be d ifferent from the original. Reduction in use of SMILEY to 1-2 nebulize r treatments per day. Measured by: Patient report Time frame: 6 months documented as of this encounter Visit Diagnoses Not on filedocumented in this encounter Care Teams Mold Swabber Relationship Specialty Start Date End Date Brandee Fuchs, AUDIT SPECIALIST PCP - General Family Medicine 01/17/19 [address] [place] [address] documented as of this encounter
--- OUTSIDE RECORDS SUMMARY | 2022-07-09 01:14 | XMS_ITS | Encounter Summary ---
:1975 Author Organization [facility] [place] [address] Care Team Providers Name Role Phone Brandee Fuchs APRN Primary Care Provider Reason for Visit Reason Comments Medication Refill Encounter Details Date Type Department Care Team Description 10/02/2020 Refill Pulmonology at [facility], Nuha Mendez MD [facility] [place] [address] Pulmonary Medicine [phone] [place] [phone] (Wo rk) Social History Tobacco Use Types [...] Irish, Manny and Erna Jones Action Plan [facility] Note: Formatting of this note might be d ifferent from the original. Reduction in use of SMILEY to 1-2 nebulize r treatments per day. Measured by: Patient report Time frame: 6 months documented as of this encounter Visit Diagnoses Not on filedocumented in this encounter Care Teams Tip Inserter Relationship Specialty Start Date End Date Brandee Fuchs APRN PCP - General Family Medicine 01/17/19 [address] [place] [address] documented as of this encounter
--- OUTSIDE RECORDS SUMMARY | 2022-07-09 01:14 | XMS_ITS | Encounter Summary ---
:1975 Author Organization [facility] [place] [address] Care Team Providers Name Role Phone Brandee Fuchs APRN Primary Care Provider Encounter Details Date Type Department Care Team Description 09/02/2020 Orders Only Rheumatology at [facility] Berkley Heránndez APRN [place] [address] [place] [address] [phone] (Wo rk) Social History Tobacco Use Types [...] Facing Rekha Roman Understanding Action Plan [facility] Note: Formatting of this note might be d ifferent from the original. Reduction in use of SMILEY to 1-2 nebulize r treatments per day. Measured by: Patient report Time frame: 6 months documented as of this encounter Visit Diagnoses Not on filedocumented in this encounter Care Teams Gi Technician Relationship Specialty Start Date End Date Brandee Fuchs APRN PCP - General Family Medicine 01/17/19 [address] [place] [address] documented as of this encounter
--- OUTSIDE RECORDS SUMMARY | 2022-07-09 01:14 | XMS_ITS | Encounter Summary ---
:1975 [place] [address] Care Team Providers Name Role Phone Brandee Fuchs MAVIS Primary Care Provider Encounter Details Date Type Department Care Team Description 09/10/2020 TH Visit Pulmonology at [facility] Nuha Dubon, Severe persistent asthma, un specified whether complicated; (TeleHealth) [facility] Environmental allergies; [facility] [address] Pulmonary [phone] [place] [address] Social History Tobacco Use Types Packs/Day Years Used Date Former Smoker Cigarettes 0.5 11 Quit: 01/05/20 03 Smokeless Tobacco: Never Used Alcohol Use Standard Drinks/Week Comments No 0 (1 standard drink = 0.6 oz pure alcoho l) Sex Assigned at Date Recorded Not on file documented as of this encounter Progress Notes Nuha Dubon MD - 09/10/2020 11:00 AM EST Images from the original note were not included. [facility] Section of Pulmonary and Critical Care Medicine Outpatient Consultation Date of Encounter: 09/10/2020 TELEHEALTH VISIT Patient identity was confirmed by name and date of at beginning of this telehealth visit. Patient was informed that this telehealth visit is a billable encounter and stated agreement to continue. The patient is at home in [place]. This visit was conducted by phone due to lack of video-based telehealth capacity in the patient's home. Reason for Evaluation: . Malu De returns to the pulmonary clinic for follow-up of asthma. I independently interviewed the patient, have examined the patient if this visit was conducted in theoffice and have reviewed available records. Dear Brandee Fuchs APRN, As you know, Malu De is a 44 y.o. woman with ongoing dyspnea in the setting of??history of??asthma, allergies, fibromyalgia and GERD, who was last evaluated in the pulmonary clinic by telehealth visit July 2020. Mrs. De reports she is currently feeling okay. She had a bad cold after our last visit, and PCP increased prednisone, to 40 mg daily for a week, then 20 mg daily for a week, then back down to 10. This seemed to help a bit. COVID19 testing with this illness was negative. She was then advised by primary care team to stop the prednisone entirely a week ago due to an upcoming flu vaccine. She has had recurrent wheezing since stopping the prednisone. She still has significant sinus congestion, and feels she has ongoing chest congestion. Cough is productive of clear sputum. This is similar to prior periods of time when her asthma has not been well controlled. She is taking albuterol nebs 5-6 times a day still (feels this is her 'normal pattern), taking breodaily. Duonebs did not help more than albuterol alone. While on prednisone 40 she did have palpitations and side effects. The previous rash on her arm is gone. On her knee she reports the rash on her knee is gone but has left behind a region of hyperpigmentation. No bumps. She is now 3 months out from her last dupixent dose. She is being started on oral naltrexone by rheumatology next week, so she would like to defer starting a new biologic for her asthma until she knows how she will react to this. She denies any specific asthma triggers currently but [place]. 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 Current Medications at Start of Encounter: Outpatient Medications Prior to Visit Medication Sig Dispense Refill ??? predniSONE (Deltasone) 10 mg Tablet Take 1 tablet by mouth daily. 30 tablet 1 ??? benralizumab 30 mg/mL Auto-Injector Inject [...] each iron infusion 6 tablet 0 ??? ipratropium-albuteroL (DUONEB) 0.5 mg-3 mg(2.5 mg base)/3 mL Solution for Nebulization Take 3 mLs by nebulization every 6 hours as needed. ??? cholecalciferol, Vitamin D3, 1,000 unit Capsule [...] Take 1 mg by mouth daily. ??? albuterol (PROVENTIL) 2.5 mg /3 mL (0.083 %) Solution for Nebulization Take 2.5 mg by nebulization as needed. 0 ??? montelukast (SINGULAIR) 10 mg Tablet Take 10 mg by mouth daily. 0 ??? omeprazole (PRILOSEC) 40 mg Capsule, Delayed Release(E.C.) Take 40 mg by mouth daily. 0 ??? BREO ELLIPTA 200-25 mcg/dose Disk with Device Inhale 1 puff into the lungs daily. 1 ??? SPIRIVA RESPIMAT 1.25 mcg/actuation Mist Inhale 2 puffs into the lungs daily. 1 ??? triamcinolone (NASACORT OR NASACORT OTC) 55 mcg Aerosol, [place] 2 sprays by Nasal route daily. No facility-administered medications prior to visit. Review of Systems: A focused ROS was completed and was positive as noted in HPI, also positive for chronic pain and otherwise negative. Physical Examination: Telephone call; exam limited. Voice is clear. No audible distress. Pulmonary Function Test Results: Not repeated with this visit. Labs, Microbiology and Imaging: I personally reviewed relevant laboratory, microbiologic and radiology results which were significant for: No new chest imaging. Impression and Recommendations: Malu De is a??44??y/o woman with chronic dyspnea in the setting of asthma, allergies, eosinophilia, GERD, and fibromyalgia, with persistent symptoms of uncontrolled asthma, frequent oral corticosteroid courses this year, and unmasking of moderate airflow obstruction on previous PFTs. She has been on prednisone for much of the past month, after stopping use of dupixent due to rash while on this therapy. Interestingly, the rash on her leg has taken a very long time to stop intermittently appearing, and I am unsure if this is related to her dupixent at all. None the less, as dupixent did not improve daily symptoms, I am still recommending we try a different biologic drug for asthma, benralizumab, to see if this both improves her daily symptoms, reduces frequency of oral corticosteroid need, and is tolerable. She would like to postpone starting this until she has started a new medication (oral naltrexone) from her recovery specialist, as she has had many reactions to medications in the past and f inds it easier to introduce one new medication at a time. She plans to contact our specialty pharmacy when she feels she is stable on naltrexone and ready to try benralizumab. In the mean time, as she is experiencing subacute worsening of her asthma while off of steroids I advised her to resume prednisone 10 mg po daily at this time. I do not think the risk of reducing response to the flu vaccine is greater than the risk that her uncontrolled asthma will spiral into a severe exacerbation. She remains on triple inhaled therapy with Breo Ellipta (ICS/LABA) and spiriva (LAMA)daily, and will continue singulair and nasacort for allergic rhinitis. Summary Recommendations: - resume prednisone 10 mg po daily for uncontrolled asthma - plan to start benralizumab when she feels she is ready; she will call specialty pharmacy to dispense the medication at that time, and the prescription is active - continue breo 200-50 daily, and spiriva 1.25 two puffs daily - continue albuterol nebs/MDI PRN - continue singulair and nasacort daily Follow-up in 3 months with telehealth visit Thank you for involving me in Mrs. De's care. Please feel free to contact me with any further questions or concerns. I personally spent 21 minutes of this telephone/telehealth encounter with the patient discussing their pulmonary disease and treatment recommendations as outlined in my assessment and plan above. This visit involved a total of 27 minutes of clinical time. Nuha Dubon MD N [facility] PULMONOLOGY AT [facility] [address] Dept: [phone] Loc: [phone] documented in this encounter Plan of Treatment Not on filedocumented as of this encounter Goals Goal Patient Goal Associated Recent Patient-Stated? Author Type Problems Progress Home Medication Patient Yes Irish, Compliance and Facing Erna Costa Action Plan [facility] Note: Formatting of this note might be d ifferent from the original. Reduction in use of SMILEY to 1-2 nebulize r treatments per day. Measured by: Patient report Time frame: 6 months documented as of this encounter Visit Diagnoses Diagnosis Severe persistent asthma, unspecified wh ether complicated Environmental allergies Allergic rhinitis, cause unspecified Rash Rash and other nonspecific skin eruption documented in this encounter Care Teams Earth Science Professor Relationship Specialty Start Date End Date Brandee Fuchs, AQUATICS SPECIALIST PCP - General Family Medicine 01/17/19 [address] [place] [address] documented as of this encounter
--- OUTSIDE RECORDS SUMMARY | 2022-07-09 01:14 | XMS_ITS | Encounter Summary ---
:1975 Author Organization [facility] [place] [address] Care Team Providers Name Role Phone Brandee Fuchs APRN Primary Care Provider Reason for Visit Reason Onset Date Comments Other 06/06/2020 [facility] 2019 Encounter Details Date Type Department Care Team Description 06/06/2020 Telephone Hematology/Oncology at [facility]ling ([facility]. [facility] 06/12/2020) [address] [place] [phone] Social History Tobacco Use Types Packs/Day Years [...] Compliance and Facing Erna Costa Action Plan [facility] Note: Formatting of this note might be d ifferent from the original. Reduction in use of SMILEY to 1-2 nebulize r treatments per day. Measured by: Patient report Time frame: 6 months documented as of this encounter Visit Diagnoses Not on filedocumented in this encounter Care Teams Cultural Centre Manager Relationship Specialty Start Date End Date Brandee Fuchs, MAVIS PCP - General Family Medicine 01/17/19 [address] [place] [address] documented as of this encounter
--- OUTSIDE RECORDS SUMMARY | 2022-07-09 01:14 | XMS_ITS | Encounter Summary ---
:1975 Author Organization [facility] [place] [address] Care Team Providers Name Role Phone Brandee Fuchs MAVIS Primary Care Provider Reason for Visit Reason Onset Date Comments Disability Paperwork 04/24/2021 Encounter Details Date Type Department Care Team Description 04/24/2021 Telephone Pulmonology at [facility] Anais Shaffer Paperwork [facility] [place] [address] RN [phone] Social History Tobacco Use Types Packs/Day Years Used Date Former Smoker Cigarettes 0.5 11 Quit: 01/05/20 03 Smokeless Tobacco: Never Used Alcohol Use Standard Drinks/Week Comments No 0 (1 standard drink = 0.6 oz pure alcoho l) Sex Assigned at Date Recorded Not on file documented as of this encounter Miscellaneous Notes Telephone Encounter - Chucky Shaffer RN - 05/12/2021 7:56 AM EDT Faxed completed [facility] [employer] Statement of Ability forms, signed by Dr. Dubon, to [employer]. Fax submission confirmation time stamped for 04/24/2021 @ 0812. 7 pages with cover sheet. Copy of Disability Forms sent to scanning for inclusion to patient records. documented in this encounter Plan of Treatment Not on filedocumented as of this encounter Goals Goal Patient Goal Associated Recent Patient-Stated? Author Type Problems Progress DH Home Medication Patient Yes Irish, Compliance and Facing Rekha Roman , Understanding Action Plan [facility] Note: Formatting of this note might be d ifferent from the original. Reduction in use of SMILEY to 1-2 nebulize r treatments per day. Measured by: Patient report Time frame: 6 months documented as of this encounter Visit Diagnoses Not on filedocumented in this encounter Care Teams Rent Control Office Manager Relationship Specialty Start Date End Date Brandee Fuchs, MANAGER ASSET MANAGEMENT PCP - General Family Medicine 01/17/19 [address] [place] [address] documented as of this encounter
--- OUTSIDE RECORDS SUMMARY | 2022-07-09 01:14 | XMS_ITS | Encounter Summary ---
:1975 Author Organization [facility] Address [address] [place] [address] Care Team Providers Name Role Phone Daniellino Brandee Lino GAMBLE Primary Care Provider Reason for Visit Reason Comments Medication Management Patient Education Medication Refill Encounter Details Date Type Department Care Team Description 01/20/2021 Specialty Pharmacy Pharmacy at [facility], [facility] Managemen t; Patient Drive Education; [place], [place] Medication Refi [id number] Social History Tobacco Use Types Packs/Day Years Used Date Former Smoker Cigarettes 0.5 11 Quit: 01/05/20 03 Smokeless Tobacco: Never Used Alcohol Use Standard Drinks/Week Comments No 0 (1 standard drink = 0.6 oz pure alcoho l) Sex Assigned at Date Recorded Not on file documented as of this encounter Progress Notes Robina Apple RPH - 01/20/2021 1:50 PM EDT Fasenra new start previously completed, however Rx was returned to stock. Patient determined she would like to fill today in attempt to restart therapy. Will fill and mail Rx to her home as requested. She plans to bring this to her local doctor's office for her first injection so she doesn't have to inject herself. Fasenra autoinjector labeled for home administration, this is appropriate. Will follow-up with patient in ~1 month. Robina Apple RPH 01/20/2021 1:52 PM documented in this encounter Plan of Treatment Not on filedocumented as of this encounter Goals Goal Patient Goal Associated Recent Patient-Stated? Author Type Problems Progress DH Home Medication Patient Yes Irish, Compliance and Facing Rekha Jessie , Understanding Action Plan [facility] Note: Formatting of this note might be d ifferent from the original. Reduction in use of SMILEY to 1-2 nebulize r treatments per day. Measured by: Patient report Time frame: 6 months documented as of this encounter Visit Diagnoses Not on filedocumented in this encounter Care Teams Manager Gyn Relationship Specialty Start Date End Date Brandee Fuchs, CARE MANAGEMENT ASSISTANT PCP - General Family Medicine 01/17/19 [address] [place] [address] documented as of this encounter
--- OUTSIDE RECORDS SUMMARY | 2022-07-09 01:14 | XMS_ITS | Encounter Summary ---
:1975 Author Organization [facility] [place] [address] Care Team Providers Name Role Phone Brandee Fuchs APRN Primary Care Provider Encounter Details Date Type Department Care Team Description 01/19/2021 [place] [facility] [place] [address] Social History Tobacco Use Types Packs/Day [...] Rekha Roman Understanding Action Plan [facility] Note: Formatting of this note might be d ifferent from the original. Reduction in use of SMILEY to 1-2 nebulize r treatments per day. Measured by: Patient report Time frame: 6 months documented as of this encounter Visit Diagnoses Not on filedocumented in this encounter Care Teams Harpsichord Maker Relationship Specialty Start Date End Date Brandee Fuchs APRN PCP - General Family Medicine 01/17/19 [address] [place], [place] [id number] documented as of this encounter
--- OUTSIDE RECORDS SUMMARY | 2022-07-09 01:14 | XMS_ITS | Encounter Summary ---
:1975 Author Organization [facility] [place] [address] Care Team Providers Name Role Phone Daniellino Brandee Lino GAMBLE Primary Care Provider Encounter Details Date Type Department Care Team Description 10/09/2020 Office Visit Hematology/Oncology Basilia Vaughan on deficiency at [facility] MAVIS Dixon anemia, unspecified [address] iron deficiency [place], [place] HEMATOLOGY ONCO LOGY anemia type [id number] [place], [place] [phone] (Wo rk) Social History Tobacco Use Types [...] Sign Reading Time Taken Comments Blood Pressure 121/79 10/09/2020 1:11 PM EST Pulse 77 10/09/2020 1:11 PM EST Temperature 36.7 ??C (98 ??F) 10/09/2020 1:11 PM EST Respiratory Rate 20 10/09/2020 1:11 PM EST Oxygen Saturation 97% 10/09/2020 1:11 PM EST Inhaled Oxygen Concentration - - Weight - - Height - - Body Mass Index - - documented in this encounter Progress Notes Basilia Vaughan APRN - 10/09/2020 1:00 PM EST Images from the original note were not included. Subjective: Patient ID: Malu De is a 44 y.o. female. Patient Active Problem List Diagnosis ??? Fatigue ??? Fibromyalgia ??? Asthma HPI ?? The patient is a 44-year-old female who was referred back to the hematology clinic in [facility] by her primary care doctor for because of recurrent iron deficiency. A few years ago she was followedby Dr. Mccollum and received some IV iron. She did not tolerate it very well. I saw her about a year ago when she was maintaining her hemoglobin and iron stores on oral iron. ?? Over the last 6 months or so she has had more trouble with the oral iron. It makes her feel poorly when she takes that. Her primary care doctor check labs and she was mildly anemic with a ferritin downto single digits again. ?? She is here to discuss resuming intravenous iron. Unfortunately her daughter a few weeks back with an automobile accident. The patient denies any bleeding. ? Past Medical History Past Medical History: Diagnosis Date ??? Asthma ? Chronic pain ? Fatigue ? Fibromyalgia ? GERD (gastroesophageal reflux disease) ? GERD (gastroesophageal reflux disease) ?? Family History: Unknown ?? Social History: Has a partner 2 children - in good health (one 2019 in MVA) Not working due to health issues No etoh No smoking INTERVAL HPI 10/09/20 Malu De is a 44 yo female who comes to the [facility] oncology clinic today for evaluation and review of ferritin and CBC for previously diagnosed LATHA. Malu was given 3 weekly doses of Venofer 300 mg IVPB in 01/27, and again in 06/29 for low ferritin levels. She is unable to tolerate oral iron tablets. Malu also struggles with chronic pain issues and asthma issues. She is followed by rheumatology and pulmonology. Today Malu has no anemia-related symptoms to report. Her energy level is about the same. She remains unable to work due to other medical problems. She denies weakness, heart palpitations, shortness or breath or chest pain. She denies any signs of bleeding or bruising. She has done some physical therapy for chronic pain issues. I asked her how she was doing with regard to her daughter's passing earlier this year, and this was unfortunately upsetting to Malu. She requested to not discuss it. Allergies Allergen Reactions ??? Dupixent Pen [Dupilumab] Rash Rash intermittently on extremities. ??? Acetaminophen Mouth blisters ??? Amitriptyline Anxiety ??? Cyclobenzaprine Other (See Comments) Small blisters ??? Cymbalta [Duloxetine] Anxiety ??? Dulera [Mometasone-Formoterol] Other (See Comments) Mental alterations ??? Gabapentin Other (See Comments) Severance like body was shaking, nerves vibrating, hands went numb ??? Indomethacin ??? Tramadol Other (See Comments) Anxiety, foggy head, unaware ??? Vicodin [Hydrocodone-Acetaminophen] Mouth blisters Current Medications ??? Miscellaneous Medical Supply Misc ??? predniSONE (Deltasone) 10 mg Tablet ??? benralizumab 30 mg/mL Auto-Injector ??? dexamethasone (Decadron) 4 mg Tablet ??? dexamethasone (Decadron) 4 mg Tablet ??? ipratropium-albuteroL (DUONEB) 0.5 mg-3 mg(2.5 mg base)/3 mL Solution for Nebulization ??? cholecalciferol, Vitamin D3, 1,000 unit Capsule ??? ondansetron (ZOFRAN) 4 mg Tablet ??? multivitamin (THERAGRAN) Tablet ??? folic acid (FOLVITE) 1 mg Tablet ??? albuterol (PROVENTIL) 2.5 mg /3 mL (0.083 %) Solution for Nebulization ??? montelukast (SINGULAIR) 10 mg Tablet ??? omeprazole (PRILOSEC) 40 mg Capsule, Delayed Release(E.C.) ??? BREO ELLIPTA 200-25 mcg/dose Disk with Device ??? SPIRIVA RESPIMAT 1.25 mcg/actuation Mist ??? triamcinolone (NASACORT OR NASACORT OTC) 55 mcg Aerosol, [place] Review of Systems Constitutional: Negative for activity change, appetite change and fever. Respiratory: Negative for cough and shortness of breath. Cardiovascular: Negative for chest pain and palpitations. Gastrointestinal: Negative. Negative for blood in stool. Musculoskeletal: Positive for arthralgias and myalgias. Chronic Skin: Negative. Neurological: Negative. Hematological: Does not bruise/bleed easily. Psychiatric/Behavioral: Negative. Objective: Physical Exam Constitutional: General: She is not in acute distress. Appearance: Normal appearance. She is not ill-appearing. Cardiovascular: Rate and Rhythm: Normal rate and regular rhythm. Heart sounds: Normal heart sounds. Pulmonary: Effort: Pulmonary effort is normal. No respiratory distress. Breath sounds: Normal breath sounds. No wheezing. Comments: Lung sounds a little diminished bilaterally Skin: General: Skin is warm and dry. Coloration: Skin is not pale. Neurological: Mental Status: She is alert and oriented to person, place, and time. Gait: Gait normal. Psychiatric: Mood and Affect: Mood normal. Thought Content: Thought content normal. BP 121/79 (Patient Position: Sitting) Pulse 77 Temp 36.7 ??C (98 ??F) (Temporal) Resp 20 SpO2 97% LABS 10/08/20 WBC 7.18; ANC 3.99; H/H 15.6/ 48.2; PLT 273; IRON 96; FERRITIN 101; TIBC 275; TRANSFERRIN % SAT 35. LABS 06/11/20; WBC 9.05; ANC 4.73; H/H 14.5/44.7; PLT 316; FERRITIN 11; IRON 43; TIBC 358; TRANSFERRIN % SAT 12. Assessment and Plan: Assessment; Malu De is a 44 yo female with LATHA who presents for evaluation of LATHA and potential iron infusions. Anemia resolved. LATHA appears resolved today following iron infusions in 06/29. Plan; Venofer infusions not needed at this time. RTC in 4 months for iron studies and visit. Encouraged Malu to call sooner for signs/symptoms of anemia or bleeding. documented in this encounter Plan of Treatment Not on filedocumented as of this encounter Goals Goal Patient Goal Associated Recent Patient-Stated? Author Type Problems Progress DH Home Medication Patient Yes Irish, Compliance and Facing Rekha Roman Understanding Action Plan [facility] Note: Formatting of this note might be d ifferent from the original. Reduction in use of SMILEY to 1-2 nebulize r treatments per day. Measured by: Patient report Time frame: 6 months documented as of this encounter Visit Diagnoses Diagnosis Iron deficiency anemia, unspecified iron deficiency anemia type documented in this encounter Care Teams Surg Physician Asst Relationship Specialty Start Date End Date Brandee Fuchs APRN PCP - General Family Medicine 01/17/19 [address] [place] [address] documented as of this encounter
--- OUTSIDE RECORDS SUMMARY | 2022-07-09 01:14 | XMS_ITS | Encounter Summary ---
:1975 Author Organization [facility] [place] [address] Care Team Providers Name Role Phone Daniellino Brandee Lino GAMBLE Primary Care Provider Encounter Details Date Type Department Care Team Description 09/02/2020 TH Visit Rheumatology at [facility] [place] Berkley Hernández, Fibromyalgia (TeleHealth) [facility] [place] [address] [facility] [phone] [place], [place] [address] (Wo rk) Social History Tobacco Use Types Packs/Day Years Used Date Former Smoker Cigarettes 0.5 11 Quit: 01/05/20 03 Smokeless Tobacco: Never Used Alcohol Use Standard Drinks/Week Comments No 0 (1 standard drink = 0.6 oz pure alcoho l) Sex Assigned at Date Recorded Not on file documented as of this encounter Patient Instructions Patient InstructionsBerkley Hernández APRN - 09/02/2020 2:00 PM EST F/u 3 months, In person or tele documented in this encounter Progress Notes Berkley Hernández APRN - 09/02/2020 2:00 PM EST Rheumatology Progress Note HPI / Rheum Hx: -FMS, hypermobility, ?EDS type III -neck pain, low back pain, polyarthralgia -Needs diagnostic PSG, failed home sleep apnea test -RF, CCP, HLA-B27 neg -EMG wnl 2017, skin bx at that time as well but no reported path results -chronic LATHA, txed with infusion which helped but poor tolerance -06/11/19 SIJ xr nl at OSH Interval Hx She didn't want to be videotaped so left the sleep clinic, didn't get the study She didn't get medical marijuana because couldn't afford it She is doing about the same. Her pain is the same. She did stop doing physical therapy, because was making it worse. She has added in turmeric, she takes 1 tablet of 500mg daily. She is doing some PT exercises at home. She does as much walking as breathing allows. She has a portable neb, which she will need if she takes a walk. Prednisone does help breathing but not as much as it helped years ago Reports allergic rxn to dupixent, rash on right knee and left elbow, large, dark red, itchy Past TOV 04/29/2020 Pt Message I wanted to go over a few things before my visit with you next week. 1. I did talk to Brandee Fuchs about the medical marijuana. She thinks it's a good idea since the traditional treatments have not worked for me and all the reactions I've had to medications. She can't prescribe it due to federal funding issues. I'm not sure if my insurance will cover it. If not, that poses a financial issue for me. 2. I have started up PT again. I hope at some point we can find something that helps my pain so thatPT is beneficial for me. I've been doing it since last June and it really hurts my joints. My pain is at a steady, daily 10. My joints hurt. The PT makes this worse. I know that PT is helpful and I need to keep my joints moving. The pain in my joints has gotten a lot worse. I find that I'm havingto lie down more and more after doing things because if the pain. I am exhausted. I still don't sleep much, the pain still has me moving from position to position all night. I am scheduled for a sleep study next month. I tried to do the at home study but having the belt around my back and sides hurt so much, it got to the point where I had to take it off. 3. I haven't tried the Meloxicam yet. I have become very nervous about trying new meds. Nothing has worked and I've had a lot of reactions. I'm starting a new med for my breathing this week, it's a shot I give myself at home. I don't try more than one new med at a time because of my past reactions to them. She would like to start MMJ She just started dupixent. Hasn't started giving them to herself yet. She will be doing over the weekend. After daughter's celebration of life ceremony Muscular pain is all over Joint pain in all the joints The most pain is in her hips, knees, and shoulders No changes to her health since January She has on pred a couple times for her breathing, just finished 14day course Prednisone didn't her pain The more repetitive motion she does with joints causes more pain In PT doing lower body bc upper body was suffering; she has persistent pain after PT She is doing traditional PT, she is not against pool therapy but doesn't think it helped too much; also worried about breathing in humid pool environment ROS: Pulm Follows with pulm for uncontrolled asthma, dxed with asthma at 16yo, which happened at the sametime she started with chronic pain; she does 5-12 nebs per day; on pred 10mg daily MS Diffuse arthralgia and myalgia Neuro neuropathic pain PAST MEDICAL HISTORY: Asthma Severe vitamin D deficiency S/p (2003) S/p tubal ligation (2003) S/p left oophorectomy (2003) ?? MEDICATIONS: I reviewed pt's medication entries on electronic record. ?? SOCIAL HISTORY: ?? Cigarettes: 1/2 ppd x 12 years (quit at the age of 28). Pt denied any use of alcohol or illicit drugs.?? She was single, with two children, daughter in car accident.?? She was currently living with her boyfriend who smokes.?? 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 ?? FAMILY HISTORY: Mother - Diabetes mellitus II; alive at the age of 60. ?? Father - Chronic alcoholism; of heart and liver failure at the age of 50. Studies: 06/11/19 SIJ xr nl at OSH 2016 Cervical spine C1 to bottom of C6 are visualized. There is loss of normal cervical lordosis. Vertebral bodies: Normal vertebral height. No vertebral fracture. Disk spaces: Normal. Soft tissues: Normal. Alignment: No subluxation ?? Thoracic spine- No fracture. Normal disc height and pedicles. ?? Lumbar spine- Number of lumbar-type vertebrae: 5 Vertebral bodies: Normal vertebral height. No vertebral fracture. Tiny osteophytes arise from scattered vertebral bodies. There is minimal L5-S1 facet arthropathy. Disk spaces: Normal. Soft tissues: Normal. Alignment: No subluxation ?? IMPRESSION 1. No vertebral body fracture. 2. Loss of normal cervical lordosis. 3. L5-S1 minimal facet arthropathy. Assessment/Plan: Widespread joint and muscle pain in the setting of FMS and hypermobile joints most evident in elbowsand hands. Pt does not currently meet Beighton's criteria, but I do not doubt that hypermobility is contributing to her pain. She has had normal EMG and skin bx as ordered by Dr. Camargo in the past. Prior work-up for inflammatory arthritis was unremarkable. Tested for lyme at onset of all of this and neg. Prior meds that were ineffective of not tolerated: cyclobenzaprine, elavil, cymbalta, indomethacin, tramadol, gabapentin, savella Could not afford the MMJ, as discussed at last visit. Will start LDN 1.5mg, can increase by 1.5mg qweek up to 4.5mg as necessary and tolerated. Pt to lookinto local compounding pharmacies and let me know which she prefers to use. Reviewed possible SE. Increase turmeric to 500mg bid. Recommend exercise as much as tolerated. Limited number of pharm options remaining. Could consider meloxicam once off prednisone. Could consider Effexor. RTC 3 months Patient verbally consents to this telephone visit and understands that this visit may be billed, similar to a clinic office visit. I provided care to the patient today via telephone call. The total time associated with this visit was 22 minutes. documented in this encounter Plan of Treatment Not on filedocumented as of this encounter Goals Goal Patient Goal Associated Recent Patient-Stated? Author Type Problems Progress DH Home Medication Patient Yes [place], Compliance and Facing Emredee J , Understanding Action Plan [facility] Note: Formatting of this note might be d ifferent from the original. Reduction in use of SMILEY to 1-2 nebulize r treatments per day. Measured by: Patient report Time frame: 6 months documented as of this encounter Visit Diagnoses Diagnosis Fibromyalgia Mylagia and myositis, unspecified documented in this encounter Care Teams Welfare Project Manager Relationship Specialty Start Date End Date Brandee Fuchs, VIDEO PLAYER MECHANIC PCP - General Family Medicine 01/17/19 [address] [place] [address] documented as of this encounter
--- OUTSIDE RECORDS SUMMARY | 2022-07-09 01:14 | XMS_ITS | Encounter Summary ---
:1975 Author Organization [facility] [place] [address] Care Team Providers Name Role Phone Brandee Fuchs MAVIS Primary Care Provider Reason for Visit Reason Comments Specialty Pharmacy Review Encounter Details Date Type Department Care Team Description 08/06/2020 Specialty Pharmacy Pharmacy [place] [facility] [place] [facility] [place] [address] Social History Tobacco Use Types Packs/Day Years Used Date Former Smoker Cigarettes 0.5 11 Quit: 01/05/20 03 Smokeless Tobacco: Never Used Alcohol Use Standard Drinks/Week Comments No 0 (1 standard drink = 0.6 oz pure alcoho l) Sex Assigned at Date Recorded Not on file documented as of this encounter Progress Notes Isabella Chairez - 08/06/2020 11:59 PM EDT The [facility] has completed a benefits investigation for Malu De to review their eligibility to fill at [facility]. Per patient's medication list they are prescribed Fasenra and the medication is able to be filled at the [facility]. documented in this encounter Plan of Treatment Not on filedocumented as of this encounter Goals Goal Patient Goal Associated Recent Patient-Stated? Author Type Problems Progress Home Medication Patient Yes Irish, Compliance and Facing Rekha Roman Understanding Action Plan [facility] Note: Formatting of this note might be d ifferent from the original. Reduction in use of SMILEY to 1-2 nebulize r treatments per day. Measured by: Patient report Time frame: 6 months documented as of this encounter Visit Diagnoses Not on filedocumented in this encounter Care Teams Velvet Cutter Relationship Specialty Start Date End Date Brandee Fuchs APRN PCP - General Family Medicine 01/17/19 [address] [place] [address] documented as of this encounter
--- OUTSIDE RECORDS SUMMARY | 2022-07-09 01:14 | XMS_ITS | Encounter Summary ---
:1975 Author Organization [facility] [place] [address] Care Team Providers Name Role Phone Brandee Fuchs VICE PRESIDENT Primary Care Provider Encounter Details Date Type Department Care Team Description 03/13/2021 TH Visit Pulmonology at [facility] Nuha Dubon DOE (dyspnea on exertion); (TeleHealth) [facility] Severe persistent asthma, unspecified wh ether complicated; [facility] Environmental allergies; [place], [place] Center Fatigue, unspecified type; [id number] Pulmonary Fibromyalgia [phone] [place] [address] Social History Tobacco Use Types Packs/Day Years Used Date Former Smoker Cigarettes 0.5 11 Quit: 01/05/20 03 Smokeless Tobacco: Never Used Alcohol Use Standard Drinks/Week Comments No 0 (1 standard drink = 0.6 oz pure alcoho l) Sex Assigned at Date Recorded Not on file documented as of this encounter Progress Notes Nuha Dubon MD - 03/13/2021 10:30 AM EDT Images from the original note were not included. [facility] Section of Pulmonary and Critical Care Medicine Outpatient Consultation Date of Encounter: 03/13/2021 TELEHEALTH VISIT Patient identity was confirmed by name and date of at beginning of this telehealth visit. Patient was informed that this telehealth visit is a billable encounter and stated agreement to continue. The patient is at home in [place]. This visit was conducted by phone due to lack of video-based telehealth capacity in the patient's home. Reason for Evaluation: Ms. Malu De returns to the pulmonary clinic for follow-up of asthma and dyspnea. I independently interviewed the patient, have examined the patient if this visit was conducted in the office and have reviewed available records. Dear Brandee Fuchs APRN, As you know, Malu De is a 45 y.o. woman with ongoing dyspnea in the setting of??history of??asthma, allergies, fibromyalgia and GERD, who was last evaluated in the pulmonary clinic??by telehealth visit??December 2020. This visit had been planned as an in office visit, however Malu requested to change to telephone visit as she has been having a lot of pain and found it difficult to come to the office today. Malu reports that she is still having dyspnea, episodes of wheezing, and finds she is fatigued with physical activity. She describes this as unchanged over the past many months. Has been on prednisone 10 mg daily since June, and she reports diligent use of breo and spiriva daily. She is having a lot of diffuse pain still, wants to try NSAIDs but needs to be on less prednisone per her rheumatology team in order to safely accommodate this. She has yet to start fasenra; plans to start this next week, will be administered at her PCP's office. Has not yet gotten the chest xray previously ordered. No other major health updates, and no hospitalizations. Current Medications at Start of Encounter: Outpatient Medications Prior to Visit Medication Sig Dispense Refill ??? TURMERIC ORAL Take by mouth. ??? predniSONE (Deltasone) 10 mg Tablet TAKE 1 TABLET BY MOUTH DAILY 30 tablet 3 ??? dexamethasone (Decadron) 4 mg Tablet Take [...] (NASACORT OR NASACORT OTC) 55 mcg Aerosol, [place] 2 sprays by Nasal route daily. No facility-administered medications prior to visit. Review of Systems: A focused ROS was completed and was positive as noted in HPI and otherwise negative. Physical Examination: Telephone visit, exam limited. No audible distress, conversational, voice is clear Pulmonary Function Test Results: Not repeated with this telephone visit Prior PFTs December 2019 reviewed, demonstrated spirometry suggestive of moderate restriction, with unmasking of airflow obstruction after bronchodilator challenge, and with an intermediate FeNO of 33. Labs, Microbiology and Imaging: I personally reviewed relevant laboratory, microbiologic and radiology results which were significant for: No new chest imaging Eosinophils last assessed in 2019, 500 Impression and Recommendations: Malu De is a 45 y/o woman with chronic??dyspnea in the setting of uncontrolled asthma with bronchodilator responsiveness, allergies, eosinophilia, GERD, and fibromyalgia, previously with frequent acute respiratory exacerbations requiring prednisone burst therapy, now with fewer episodes of acute exacerbation while on chronic low-dose prednisone, but with persistence of dyspnea and wheezing. She is planning to start benralizumab therapy soon, a plan which has been in the works for a while, and I am very hopeful that this will improve her baseline dyspnea and allow us to taper her off of prednisone with less risk of recurrent respiratory exacerbations. She is motivated to decrease prednisonenow as she would like to try NSAIDs for her joint pain, and I recommended she step down to 8 mg of prednisone daily now. She will receive benralizumab at her primary care office, and this has previously been ordered. Once we know her responsiveness to benralizumab I anticipate we will be able to further taper the prednisone. She remains on triple inhaled therapy (Breo and Spiriva), is using albuterol nebs frequently, and with her history of allergic/eosinophilic asthma is also continuing on Singulair and Nasacort. We have previously recommended a chest x-ray to exclude alternative processes contributing to dyspnea this year, which she reports she plans to get soon. She would like to do this at [facility]. She is thinking about the covid19 vaccine; hasn't decided yet. I encouraged her that I believe the vaccine is safe and would significantly reduce her risk for severe respiratory illness if she is exposed to COVID-19. Summary Recommendations: - She will be starting fasenra this month, injections coordinated through her PCPs office - CXR now (at [facility]), new order placed - decrease to prednisone 8 mg po daily now, prescriptions changed (5 mg, 1 mg tabs) -Continue current Breo Ellipta daily, Spiriva Respimat 1.25 mcg 2 puffs daily, albuterol nebs, DuoNebs and albuterol MDI as needed, Singulair and Nasacort daily Follow-up in 3 months with in-office visit Thank you for involving me in Mrs. De's care. Please feel free to contact me with any further questions or concerns. I personally spent 17 minutes of this telephone/telehealth encounter with the patient discussing their pulmonary disease and treatment recommendations as outlined in my assessment and plan above. This visit involved a total of 22 minutes of clinical time on day of visit. Nuha Dubon MD [facility] PULMONOLOGY AT [facility] [id number] Dept: [phone] Loc: [phone] documented in this encounter Plan of Treatment Not on filedocumented as of this encounter Goals Goal Patient Goal Associated Recent Patient-Stated? Author Type Problems Progress DH Home Medication Patient Yes Irish, Compliance and Facing Rekha Roman Understanding Action Plan [facility] Note: Formatting of this note might be d ifferent from the original. Reduction in use of SMILEY to 1-2 nebulize r treatments per day. Measured by: Patient report Time frame: 6 months documented as of this encounter Visit Diagnoses Diagnosis CLEMENT (dyspnea on exertion) Other dyspnea and respiratory abnormalit y Severe persistent asthma, unspecified wh ether complicated Environmental allergies Allergic rhinitis, cause unspecified Fatigue, unspecified type Fibromyalgia Mylagia and myositis, unspecified documented in this encounter Care Teams Patent Agent Relationship Specialty Start Date End Date Brandee Fuchs, VICE PRESIDENT PCP - General Family Medicine 01/17/19 [address] [place] [address] documented as of this encounter
--- OUTSIDE RECORDS SUMMARY | 2022-07-09 01:14 | XMS_ITS | Encounter Summary ---
:1975 Author Organization [facility] [place] [address] Care Team Providers Name Role Phone Brandee Fuchs APRN Primary Care Provider Encounter Details Date Type Department Care Team Description 03/16/2021 Orders Only Rheumatology at [facility] Berkley Hernández APRN [facility] [address] [place] [id number] [phone] (Wo rk) Social History Tobacco Use Types [...] on filedocumented in this encounter Care Teams Polysomnographic Technician Relationship Specialty Start Date End Date Brandee Fuchs APRN PCP - General Family Medicine 01/17/19 [address] [place] [address] documented as of this encounter
--- OUTSIDE RECORDS SUMMARY | 2022-07-09 01:14 | XMS_ITS | Encounter Summary ---
:1975 Author Organization [facility] [place] [address] Care Team Providers Name Role Phone DanielBrandee huynh Obdulia GAMBLE Primary Care Provider Encounter Details Date Type Department Care Team Description 11/25/2020 TH Visit Rheumatology at [facility] Berkley Hernández, Fibromyalgia (TeleHealth) [facility] [place] [address] [facility] [phone] [place], [place] [address] (Wo rk) Social History Tobacco Use Types Packs/Day Years Used Date Former Smoker Cigarettes 0.5 11 Quit: 01/05/20 03 Smokeless Tobacco: Never Used Alcohol Use Standard Drinks/Week Comments No 0 (1 standard drink = 0.6 oz pure alcoho l) Sex Assigned at Date Recorded Not on file documented as of this encounter Progress Notes Berkley Hernández APRN - 11/25/2020 2:00 PM EST I reached patient. She cannot talk right now and would like to reschedule. I will have the secretaries call her. documented in this encounter Plan of Treatment Not on filedocumented as of this encounter Goals Goal Patient Goal Associated Recent Patient-Stated? Author Type Problems Progress Home Medication Patient Yes Irish, Manny and Facing Melyssia J , Understanding Action Plan [facility] Note: Formatting of this note might be d ifferent from the original. Reduction in use of SMILEY to 1-2 nebulize r treatments per day. Measured by: Patient report Time frame: 6 months documented as of this encounter Visit Diagnoses Diagnosis Fibromyalgia Mylagia and myositis, unspecified documented in this encounter Care Teams Job Service Consultant Relationship Specialty Start Date End Date Brandee Fuchs, MESSAGE CLERK PCP - General Family Medicine 01/17/19 [address] [place] [address] documented as of this encounter
--- OUTSIDE RECORDS SUMMARY | 2022-07-09 01:14 | XMS_ITS | Encounter Summary ---
:1975 Author Organization [facility] [place] [address] Care Team Providers Name Role Phone Brandee Fuchs WRINGER MACHINE OPERATOR Primary Care Provider Encounter Details Date Type Department Care Team Description 06/23/2020 Telephone Medicine Critical Ca re Nuha Dubon MD [facility] [place] [address] Pulmonary Medicine [phone] [place], [place] [address] (Wo rk) Social History Tobacco Use Types Packs/Day Years Used Date Former Smoker Cigarettes 0.5 11 Quit: 01/05/20 03 Smokeless Tobacco: Never Used Alcohol Use Standard Drinks/Week Comments No 0 (1 standard drink = 0.6 oz pure alcoho l) Sex Assigned at Date Recorded Not on file documented as of this encounter Miscellaneous Notes Telephone Encounter - Nuha Dubon MD - 06/23/2020 3:16 PM EDT Received call back from Malu De to discuss her rash. She reports rash which was red, raised (like blister), itchy and started on knees, then with second dose of dupixent spread from knee to ankle and showed up on elbows. Rash has been gradually fading since her last dupixent dose 1.5 weeks ago, but this rash reaction seemed worse with the second dose. She has not noticed a significant improvement in her breathing while on dupixent. This could be a drug reaction. I recommended she stop the dupixent, and that we see what happens with the rash while off of dupixent. (Third dose would have been 06/25.) We can consider a different anti-IL5 biologic therapy at that point. I would like to see her in the office next week with repeat PFTs to assess candidacy for additional biologic therapy. Nuha Dubon MD 06/23/2020 3:19 PM documented in this encounter Plan of Treatment Not on filedocumented as of this encounter Goals Goal Patient Goal Associated Recent Patient-Stated? Author Type Problems Progress DH Home Medication Patient Yes Irish, Compliance and Facing Rekha Roman Understanding Action Plan [facility] Note: Formatting of this note might be d ifferent from the original. Reduction in use of SMILEY to 1-2 nebulize r treatments per day. Measured by: Patient report Time frame: 6 months documented as of this encounter Visit Diagnoses Not on filedocumented in this encounter Care Teams Wastewater Design Engineer Relationship Specialty Start Date End Date Brandee Fuchs, WRINGER MACHINE OPERATOR PCP - General Family Medicine 01/17/19 [address] [place] [address] documented as of this encounter
--- OUTSIDE RECORDS SUMMARY | 2022-07-09 01:14 | XMS_ITS | Encounter Summary ---
:1975 Author Organization [facility] [place] [address] Care Team Providers Name Role Phone Brandee Fuchs Obdulia GAMBLE Primary Care Provider Reason for Visit Reason Onset Date Comments Prior Authorization 10/06/2020 Naltrexone 1.5 mg co mpounded Encounter Details Date Type Department Care Team Description 10/06/2020 Telephone Rheumatology at [facility] Luma Owen, Prior Authorization [facility] Kilo hurt MARKETING COPYWRITER (Naltrexone 1[place] [place] [address] compounded) [phone] Social History Tobacco Use Types Packs/Day Years Used Date Former Smoker Cigarettes 0.5 11 Quit: 01/05/20 03 Smokeless Tobacco: Never Used Alcohol Use Standard Drinks/Week Comments No 0 (1 standard drink = 0.6 oz pure alcoho l) Sex Assigned at Date Recorded Not on file documented as of this encounter Miscellaneous Notes Telephone Encounter - Rosalinda Dorantes CCMA - 10/07/2020 2:01 PM EST Medication Prior Authorization for Primary Care Approved: naltroxen Start Date: 10/07/2020 End Date: 04/07/2021 Case/Reference #: See Approval Letter in scanned documents. Additional Notes: Telephone Encounter - Lay Reaves CCMA - 10/07/2020 1:03 PM EST Updated information for Naltrexone and re-faxed it to insurance via [employer] Moreno# [id number]. Information included:She failed physical therapy and TENS unit made things worse Telephone Encounter - Lay Reaves CCMA - 10/07/2020 11:27 AM EST PA being deferred. Rx must be written by or in consultation with a marine painter AND patient must have tried and failed at least 3 preferred pharmacologic agents and 1 non-pharmacologic therapy (eg, PT, Neurostimulation) If information is not available or not received within 14 days PA will be denied. Telephone Encounter - BraydenLuma JORDON Bautista - 10/06/2020 1:54 PM EST Medication Prior Authorization for Primary [place] [address] Request received via: [employer] Patient: Malu De Patient : 1975 Insurance Company: MEDICAID [place] Sent via: [employer] Phone: Moreno: [id number] Physician: Berkley Hernández APRN Medication Requested:Naltrexone 1.5 mg Frequency/Sig: Take by mouth Naltrexone 1.5 mg for 1 wk. If necessary and tolerated, increase by 1.5mg every wk up to a max dose of 4.5mg daily. ?? Disp: 90 each Refills: 1 Currently taking: no Diagnosis for this medication: Fibromyalgia ICD-10 code: M79.7 Prior medications trialed in this patient: Prior meds that were ineffective of not tolerated: cyclobenzaprine, elavil, cymbalta, indomethacin, tramadol, gabapentin, savella Adjacent Treatments: Could not afford the MMJ, as discussed at last visit. Increase turmeric to 500mg bid. Additional Notes: [facility] [place], [place] - [address] [place] [address] allergic rxn to dupixent, Acetaminophen, Amitriptyline,Cyclobenzaprine, Cymbalta [Duloxetine], Dulera [Mometasone-formoterol] Gabapentin, Indomethacin, Tramadol, Vicodin [Hydrocodone-acetaminophen] documented in this encounter Plan of Treatment Not on filedocumented as of this encounter Goals Goal Patient Goal Associated Recent Patient-Stated? Author Type Problems Progress DH Home Medication Patient Yes Irish, Compliance and Facing Rekha Roman Understanding Action Plan [facility] Note: Formatting of this note might be d ifferent from the original. Reduction in use of SMILEY to 1-2 nebulize r treatments per day. Measured by: Patient report Time frame: 6 months documented as of this encounter Visit Diagnoses Not on filedocumented in this encounter Care Teams Industrial Energy Engineer Relationship Specialty Start Date End Date Brandee Fuchs APRN PCP - General Family Medicine 01/17/19 [address] [place] [address] documented as of this encounter
--- OUTSIDE RECORDS SUMMARY | 2022-07-09 01:14 | XMS_ITS | Encounter Summary ---
:1975 Author Organization [facility] [place] [address] Care Team Providers Name Role Phone Brandee Fuchs Obdulia GAMBLE Primary Care Provider Encounter Details Date Type Department Care Team Description 08/06/2020 TH Visit Pulmonology at [facility] Nuha Dubon, Severe persistent asthma, un specified whether complicated; (TeleHealth) [facility] Environmental allergies; [facility] Other eosinophilia; [facility] [address] [id number] Pulmonary [phone] [place] [address] Social History Tobacco Use Types Packs/Day Years Used Date Former Smoker Cigarettes 0.5 11 Quit: 01/05/20 03 Smokeless Tobacco: Never Used Alcohol Use Standard Drinks/Week Comments No 0 (1 standard drink = 0.6 oz pure alcoho l) Sex Assigned at Date Recorded Not on file documented as of this encounter Progress Notes Nuha Dubon MD - 08/06/2020 10:30 AM EDT Images from the original note were not included. [facility] Section of Pulmonary and Critical Care Medicine Outpatient Consultation Date of Encounter: 08/06/2020 TELEHEALTH VISIT Patient identity was confirmed at the beginning of this telehealth visit. Patient is aware this telehealth visit is a billable encounter and stated agreement to continue. The patient is at [place] in [place]. This visit was conducted by phone due [...] woman with ongoing dyspnea in the setting of history of asthma, allergies, fibromyalgia and GERD, who was last evaluated in the pulmonary clinic by telehealth visit March 2020. Mrs. De reports that her symptoms are about the same as before, still short of breath with activity, with wheezing, chest tightness and with some sinus congestion. Allergies do seem to be acting up more currently. She feels the cold air is also triggering her asthma currently. She continues to intermittently wake at night with cough/wheezing. She feels her activity remains limited by dyspnea; even if going for a walk she carries her portablenebulizer with her and needs to use this with moderate activity. She has to use albuterol in the middle of vacuuming her house, etc. Sometimes shortness of breath develops without exercise provocation as well. She still has intermittent redness and itching on her knee and arm, which can come and go over the course of the day, can be tender to touch when they flare, did blister months ago, sometimes occurringin arm and leg at different times; we initially associated these rashes with dupixent, but she stopped this medication back in June. Rash is always in the same two locations. Currently rash is almost resolved. She occasionally has diffuse joint pains (has for a long time, associated with fibromyalgia; but seems to be a bit progressive over time, especially in hip joints with exercise) but deniesany pain or swelling of joints associated with the knee or elbow where these rashes are located. Shecontinues to follow with rheumatology. Otherwise her health has been stable. She denies any ED visits, acute exacerbations of breathing, oradditional prednisone courses since we last prescribed this on 04/08. She is still receiving iron infusions. She is still taking breo ellipta daily, spiriva daily and denies side effects. Uses albuterol nebs as primary relief; sometimes uses duonebs for severe dyspnea. Use is frequent. She is planning to the flu vaccine next week. Current Medications at Start of Encounter: Outpatient Medications Prior to Visit Medication Sig Dispense Refill ??? benralizumab 30 mg/mL Auto-Injector Inject 30 mg subcutaneously every 28 days. 30mg subcutaneously every 28 days for the first 3 doses, then 30mg subcutaneously every 56 days. (Patient not taking: Reported on 06/26/2020) 1 mL 1 ??? dexamethasone (Decadron) 4 mg Tablet Take 1 tablet by mouth daily. Take one tablet daily X3 daysfollowing Iron infusion. 9 tablet 0 ??? dupilumab (Dupixent) 300 mg/2 mL Syringe Inject 300 mg subcutaneously every 14 days. (Patient not taking: Reported on 06/26/2020) 2 Syringe 5 ??? dexamethasone (Decadron) 4 mg Tablet Take [...] Nausea. Take1 hour prior to oral iron. (Patient not taking: Reported on 04/08/2020) 30 tablet 3 ??? multivitamin (THERAGRAN) Tablet [...] (NASACORT OR NASACORT OTC) 55 mcg Aerosol, [place] 2 sprays by Nasal route daily. No facility-administered medications prior to visit. Review of Systems: A focused ROS was completed and was positive as noted in HPI, and otherwise negative. Physical Examination: Telephone visit; exam limited. No audible distress; voice is clear. Pulmonary Function Test Results: Not repeated with this telehealth visit. Labs, Microbiology and Imaging: I personally reviewed relevant laboratory, microbiologic and radiology results which were significant for: Eosinophils in December Immunization History: Flu vaccine: plans to get soon Pneumovax: Prevnar-13: Impression and Recommendations: Malu De is a 44??y/o woman with chronic dyspnea in the setting of asthma, allergies, eosinophilia, GERD, and fibromyalgia, with persistent symptoms of uncontrolled asthma, frequent oral corticosteroid courses this year, and unmasking of moderate airflow obstruction on previous PFTs. She has unf ortunately not perceived significant symptom benefit from a trial of dupixent biologic therapy, and has had areas of skin redness concerning for possible reaction to this medication. We have stopped dupixent. After her rashes are fully resolved I would recommend we try an alternative biologic therapy such as benralizumab, with the hope that this will improve her chronic asthma control and reduce riskfor future asthma exacerbations requiring oral steroids. There is pretty good tolerance and benefit in many cases from trial of alternative biologic therapy agents for individuals with asthma who fail to benefit from their first biologic drug. Mrs. De agreed she is open to trying an alterative biologic therapy. For now, I recommended we start a trial of low-dose chronic prednisone to address her significant daily asthma symptoms and minimize the risk of developing chronic airflow obstruction from asthma. We will start prednisone 10 mg po daily. We discussed the potential risk of hyperglycemia from chronic cate roids. She will continue on triple inhaled therapy as well with Breo Ellipta and spiriva. Summary Recommendations: - start prednisone 10 mg po daily, prescribed with this visit, anticipate up to 2 month course of treatment - continue breo ellipta 200-25 one inhalation daily, spiriva respimat 1.25 mcg two inhalations daily, albuterol MDI and nebs PRN, duonebs PRN, singulair 10 mg daily, nasal steroid nasacort spray - (dupixent has been discontinued) - benralizumab prescription entered to assess insurance coverage; would not recommend starting this until after her rash resolves, likely after next pulmonary clinic visit Follow-up in 6 weeks with telehealth visit. Thank you for involving me in Mrs. De's care. Please feel free to contact me with any further questions or concerns. I personally spent 28 minutes of this telephone/telehealth encounter with the patient discussing their pulmonary disease and treatment recommendations as outlined in my assessment and plan above. This visit involved a total of 38 minutes of clinical time. Nuha Dubon MD [facility] PULMONOLOGY AT [facility] [address] Dept: [phone] Loc: [phone] documented in this encounter Plan of Treatment Not on filedocumented as of this encounter Goals Goal Patient Goal Associated Recent Patient-Stated? Author Type Problems Progress DH Home Medication Patient Yes Irish, Compliance and Facing Rekha Roman Understanding Action Plan [facility] Note: Formatting of this note might be d ifferent from the original. Reduction in use of SMILEY to 1-2 nebulize r treatments per day. Measured by: Patient report Time frame: 6 months documented as of this encounter Visit Diagnoses Diagnosis Severe persistent asthma, unspecified wh ether complicated Environmental allergies Allergic rhinitis, cause unspecified Other eosinophilia Rash Rash and other nonspecific skin eruption documented in this encounter Care Teams Customer Engagement Representative Relationship Specialty Start Date End Date Brandee Fuchs, CHIEF PAYROLL CLERK PCP - General Family Medicine 01/17/19 [address] [place] [address] documented as of this encounter
--- OUTSIDE RECORDS SUMMARY | 2022-07-09 01:14 | XMS_ITS | Encounter Summary ---
:1975 [place] [address] Care Team Providers Name Role Phone Brandee Fuchs MAVIS Primary Care Provider Encounter Details Date Type Department Care Team Description 06/30/2020 Orders Only Sleep Center at [facility] Tammie Johnson MD [facility] [address] [place] [address] [place] [address] [phone] (Wo rk) Social History Tobacco Use Types Packs/Day Years Used Date Former Smoker Cigarettes 0.5 11 Quit: 01/05/20 03 Smokeless Tobacco: Never Used Alcohol Use Standard Drinks/Week Comments No 0 (1 standard drink = 0.6 oz pure alcoho l) Sex Assigned at Date Recorded Not on file documented as of this encounter Progress Notes Emma Johnson MD - 06/30/2020 1:06 PM EDT Polysomnogram Order Form Room # Technologist Assignment: To be read by on PSG Patient Information Date of study: : 1975 Name: Malu De Height: Weight: 86 kg 44 y.o. female Normal sleep hours: 10 - 6 am, but insomnia and long time to get to sleep Arrival Time: Physical/Mobility Limitations: No Cognitive Limitations: No Requires Male Tech: No Requires Female Tech: No Requires 1:1 Care: No Requires Parent/Caregiver: no Using Home Oxygen: no At home sleeps in: Bed PSG Indications: Technical failure of HSAT, needs in lab testing Other Medical Conditions: Patient Active Problem List Diagnosis Code ??? Asthma J45.909 ??? Fatigue R53.83 ??? Fibromyalgia M79.7 PSG Orders Type of study: PSG, split for AHI > 30 + CMS AHI > 10 Additional data required: no Special instructions: no *Initiate CPAP/BPAP/oxygen per previously determined protocols unless otherwise specified. documented in this encounter Plan of Treatment Not on filedocumented as of this encounter Goals Goal Patient Goal Associated Recent Patient-Stated? Author Type Problems Progress DH Home Medication Patient Yes Irish, Compliance and Facing Erna Costa Action Plan [facility] Note: Formatting of this note might be d ifferent from the original. Reduction in use of SMILEY to 1-2 nebulize r treatments per day. Measured by: Patient report Time frame: 6 months documented as of this encounter Visit Diagnoses Not on filedocumented in this encounter Care Teams Chlorobutadiene Scrubber Operator Relationship Specialty Start Date End Date Brandee Fuchs APRN PCP - General Family Medicine 01/17/19 [address] [place] [address] documented as of this encounter
--- OUTSIDE RECORDS SUMMARY | 2022-07-09 01:14 | XMS_ITS | Encounter Summary ---
:1975 Author Organization [facility] [place] [address] Care Team Providers Name Role Phone Brandee Fuchs MAVIS Primary Care Provider Reason for Visit Reason Comments Prior Authorization Fasenra 30 mg pen Encounter Details Date Type Department Care Team Description 01/19/2021 Specialty Pharmacy Pharmacy at [facility] Sal Prior Authorization [facility] Tracy Dusty (Fasenra 30 mg pen) [place] [id number] Social History Tobacco Use Types Packs/Day Years Used Date Former Smoker Cigarettes 0.5 11 Quit: 01/05/20 03 Smokeless Tobacco: Never Used Alcohol Use Standard Drinks/Week Comments No 0 (1 standard drink = 0.6 oz pure alcoho l) Sex Assigned at Date Recorded Not on file documented as of this encounter Progress Notes Tracy Huang - 01/19/2021 3:59 PM EDTSummary: fasenra prior auth submission [facility], Medication Prior Authorization Patient: Malu De Patient : 1975 Patient Address: [address] [place] [phone] (home) Medication Name: FASENRA PEN 30 MG/ML SUBCUTANEOUS AUTO-INJECTOR Medication ID: [id number] Patient Location: [facility] PULMONOLOGY 5C Patient Location Comment: Subscriber Insurance: [place] Subscriber Insurance Comment: Physician: HELEN RODGERS Physician Comment: Sent Via: Fax [place]: N/A Ref/Case/PA#: N/A Medication Strength Frequency Requested: Fasenra - inject one pen every 28 days for three doses, then inject one pen every 56 days Qty/Day Supply: 11/06 New Start: Renewal Diagnosis & ICD-10 Code: J45.50 severe persistent asthma Patient Notified: No Submission Notes: PA required. Sent via fax Tracy Huang 01/19/21 4:03 PM Tracy Huang - 01/19/2021 3:59 PM EDTSummary: Aldo FONSECA approval [facility], Prior Authorization Approval Medication Name: FASENRA PEN 30 MG/ML SUBCUTANEOUS AUTO-INJECTOR Medication ID: [id number] Approval Dates: 01/20/2021 to 04/21/2021 Insurance requirements/notes: Can fill at pharmacy Other Notes: None Case/Reference #: [id number] Approval notification Received via: Fax Copay: $3.00 Copay assistance: None Copay Notes: Co-pay is affordable Insurance mandated Pharmacy: D Pharmacy Fillable at [facility]: Yes Pharmacy staff will be reaching out to the patient to inform them of their medication's approval by their insurance. If applicable, a pharmacist will speak with the patient to offer our specialty pharmacy services and to arrange delivery of their medication. Tracy Huang 01/20/21 10:14 AM documented in this encounter Plan of Treatment Not on filedocumented as of this encounter Goals Goal Patient Goal Associated Recent Patient-Stated? Author Type Problems Progress DH Home Medication Patient Yes Irish, Compliance and Facing Rekha Roman Understanding Action Plan [facility] Note: Formatting of this note might be d ifferent from the original. Reduction in use of SMILEY to 1-2 nebulize r treatments per day. Measured by: Patient report Time frame: 6 months documented as of this encounter Visit Diagnoses Not on filedocumented in this encounter Care Teams Client Support Analyst Relationship Specialty Start Date End Date Brandee Fuchs, ASSISTANT LIBRARIAN PCP - General Family Medicine 01/17/19 [address] [place] [address] documented as of this encounter
--- OUTSIDE RECORDS SUMMARY | 2022-07-09 01:14 | XMS_ITS | Encounter Summary ---
:1975 Author Organization [facility] [place] [address] Care Team Providers Name Role Phone Daniellino Brandee Lino GAMBLE Primary Care Provider Reason for Visit Reason Comments IV Medication Venofer Encounter Details Date Type Department Care Team Description 06/19/2020 [facility] [address] [facility] anemia type [place], [place] [phone] Social History Tobacco Use [...] Sign Reading Time Taken Comments Blood Pressure 116/63 06/19/2020 1:27 PM EDT Pulse 85 06/19/2020 1:27 PM EDT Temperature 36.6 ??C (97.9 ??F) 06/19/2020 1:27 PM EDT Respiratory Rate 18 06/19/2020 1:27 PM EDT Oxygen Saturation 97% 06/19/2020 1:27 PM EDT Inhaled Oxygen Concentration - - Weight - - Height - - Body Mass Index - - documented in this encounter Progress Notes Jodi Ly RN - 06/19/2020 1:00 PM EDT INFUSION THERAPY ADMINISTRATION NOTES DIAGNOSIS: Iron Deficiency REASON FOR VISIT: Venofer week 1 SUBJECTIVE Malu offers no complaints. OBJECTIVE IV ACCESS: PIV right hand. Pre administration: Chemotherapy orders independently verified for drug name, route, and dosage per patient's height, weight and BSA by Janet Ly RN and On-site pharmacist. REACTIONS (DESCRIPTION, TIME, INTERVENTION AND EFFECTIVENESS) none ASSESSMENT Malu was awake, alert and tolerated treatment well. Patient remained in clinic for 30 min post infusion to monitor for reactions. PLAN Return to clinic as scheduled. documented in this encounter Plan of Treatment Not on filedocumented as of this encounter Goals Goal Patient Goal Associated Recent Patient-Stated? Author Type Problems Progress DH Home Medication Patient Yes Irish, Compliance and Facing Erna Costa Action Plan [facility] Note: Formatting of this note might be [...] Dose Rate Site dexamethasone (Decadron) injection Given 06/19/2020 1:43 PM EDT 10 mg 10 mg 10 mg, Intravenous, ONCE, 1 dose, On Rachel 06/19/20 at 1345 iron sucrose (Venofer) 300 mg in Given 06/19/2020 2:16 PM EDT 30 0 mg 76.7 mL/hr sodium chloride 0.9% 115 mL 300 mg, Intravenous, WEEKLY, 3 doses, First dose on Rachel 06/19/20 at 1330, Last dose on Rachel 07/03/20 at 0900, Administer over 90 Minutes, Patients should be closely monitored for signs of hypersensitivity during and for at least 30 min after each administration. , Outpatient Transfusion ondansetron (Zofran) tablet 8 mg Given 06/19/2020 1:42 PM EDT 8 mg 8 mg, Oral, ONCE, 1 dose, On Rachel 06/19/20 at 1345, Routine documented in this encounter Care Teams Water Resource Engineering Specialist Relationship Specialty Start Date End Date Brandee Fuchs, DEAL ARCHITECT PCP - General Family Medicine 01/17/19 [address] [place] [address] documented as of this encounter
--- OUTSIDE RECORDS SUMMARY | 2022-07-09 01:14 | XMS_ITS | Encounter Summary ---
:1975 Author Organization [facility] [place] [address] Care Team Providers Name Role Phone DanielBrandee huynh Obdulia GAMBEL Primary Care Provider Encounter Details Date Type Department Care Team Description 06/12/2020 Office Visit Hematology/Oncology Basilia Vaughan Ir on deficiency at [facility] AMAVIS anemia, unspecified [address] iron deficiency [place], [place] HEMATOLOGY ONCO LOGY anemia type [phone] [place], [place] [phone] (Wo rk) Social History Tobacco Use Types [...] Sign Reading Time Taken Comments Blood Pressure 116/81 06/12/2020 8:45 AM EDT Pulse 61 06/12/2020 8:45 AM EDT Temperature 36.2 ??C (97.2 ??F) 06/12/2020 8:45 AM EDT Respiratory Rate 16 06/12/2020 8:45 AM EDT Oxygen Saturation 98% 06/12/2020 8:45 AM EDT Inhaled Oxygen Concentration - - Weight 86.2 kg (190 lb) 06/12/2020 8:45 AM EDT Height 154.9 cm (5' 0.98) 06/12/2020 8:45 AM EDT yeni subramanian Body Mass Index 35.92 06/12/2020 8:45 AM EDT documented in this encounter Progress Notes Basilia Vaughan APRN - 06/12/2020 8:30 AM EDT Images from the original note were not included. Subjective: Patient ID: Malu De is a 44 y.o. female. Patient Active Problem List Diagnosis ??? Fatigue ??? Fibromyalgia ??? Asthma HPI ?? The patient is a 44-year-old female who was referred back to the hematology clinic in [facility] by her primary care doctor for because [...] issues No etoh No smoking INTERVAL HPI 06/12/20 Malu De is a 44 yo female who comes to the [facility] oncology clinic today for evaluation and review of ferritin and CBC for previously diagnosed LATHA. Malu has no acute anemia-related complaints today. She denies shortness of breath, heart palpitations or new fatigue Issues. She reports thinking clearly, and denies any unusual bleeding. She is notinterested at this time in a GI workup for bleeding, which had been a consideration during her last visit. Malu received 3 doses of 300 mg Venofer iv on separate days from 01/3020 through 02/28/20 for a ferritin level of 4. Today she expects to begin another round of iron sucrose infusions. She has not been taking oral Iron for many months as she states it makes her ill. Allergies Allergen Reactions ??? Acetaminophen Mouth blisters ??? Amitriptyline Anxiety ??? Cyclobenzaprine Other (See Comments) Small blisters ??? Cymbalta [Duloxetine] Anxiety ??? Dulera [Mometasone-Formoterol] Other (See Comments) Mental alterations ??? Gabapentin Other (See Comments) [place] like body was shaking, nerves vibrating, hands went numb ??? Indomethacin ??? Tramadol Other (See Comments) Anxiety, foggy head, unaware ??? Vicodin [Hydrocodone-Acetaminophen] Mouth blisters Current Medications ??? dupilumab (Dupixent) 300 mg/2 mL Syringe ??? ipratropium-albuteroL (DUONEB) 0.5 mg-3 mg(2.5 mg base)/3 mL Solution for Nebulization ??? cholecalciferol, Vitamin D3, 1,000 unit Capsule ??? multivitamin (THERAGRAN) Tablet ??? folic acid (FOLVITE) 1 mg Tablet ??? albuterol (PROVENTIL) 2.5 mg /3 mL (0.083 %) Solution for Nebulization ??? montelukast (SINGULAIR) 10 mg Tablet ??? omeprazole (PRILOSEC) 40 mg Capsule, Delayed Release(E.C.) ??? BREO ELLIPTA 200-25 mcg/dose Disk with Device ??? SPIRIVA RESPIMAT 1.25 mcg/actuation Mist ??? triamcinolone (NASACORT OR NASACORT OTC) 55 mcg Aerosol, [place] ??? predniSONE (Deltasone) 20 mg Tablet ??? dexamethasone (Decadron) 4 mg Tablet ??? polyethylene glycol (Miralax) 17 gram/dose Powder ??? ondansetron (ZOFRAN) 4 mg Tablet ??? ferrous sulfate 325 mg (65 mg iron) Tablet Review of Systems Constitutional: Negative for activity change, appetite change and fever. Respiratory: Negative. Cardiovascular: Negative. Musculoskeletal: Positive for arthralgias and myalgias. Chronic Skin: Negative. Hematological: Does not bruise/bleed easily. Psychiatric/Behavioral: Negative. Objective: Physical Exam Constitutional: General: She is not in acute distress. Appearance: Normal appearance. Cardiovascular: Rate and Rhythm: Normal rate and regular rhythm. Heart sounds: Normal heart sounds. Pulmonary: Effort: Pulmonary effort is normal. No respiratory distress. Breath sounds: Normal breath sounds. No wheezing. Skin: General: Skin is warm and dry. Findings: No rash. Neurological: Mental Status: She is alert. Psychiatric: Mood and Affect: Mood normal. Thought Content: Thought content normal. Comments: Affect flat Patient Vitals for the past 24 hrs: Temp Pulse Resp BP SpO2 06/12/20 0845 36.2 ??C (97.2 ??F) 61 16 116/81 98 % Wt 86.2 kg LABS 06/11/20 WBC 9.05; ANC 4.73; H/H 14.5/44.7; PLT 316; FERRITIN 11; IRON 43; TIBC 358; TRANSFERRIN % SAT 12. 8 BUN 10; CREAT 0.82; K+3.9; NA 140; CA 9.4 Assessment and Plan: Assessment; Malu De is a 44 yo female with LATHA who presents for evaluation for iron infusions. Labs show improved ferritin at 11, still on low side. Anemia resolved for now. H/H 14.5/44/7; Iron 43. Plan; Hold infusion for today pending review with Dr. Hernandez. Will contact patient to set up 3 weekly Venofer infusions if needed. Otherwise would recheck labs in 6 weeks. Encourage Malu to call anytime for signs/symptoms of anemia or bleeding. documented [...] type documented in this encounter Care Teams Turkish Line Attendant Relationship Specialty Start Date End Date Brandee Fuchs, ADVERTISING SUPERVISOR PCP - General Family Medicine 01/17/19 [address] [place] [address] documented as of this encounter
--- OUTSIDE RECORDS SUMMARY | 2022-07-09 01:14 | XMS_ITS | Encounter Summary ---
:1975 Author Organization [facility] [place] [address] Care Team Providers Name Role Phone DanielBrandee huynh Obdulia GAMBLE Primary Care Provider Encounter Details Date Type Department Care Team Description 08/07/2020 Telephone Pulmonology at [facility] [place] [address] Social History Tobacco Use Types Packs/Day Years Used Date Former Smoker Cigarettes 0.5 11 Quit: 01/05/20 03 Smokeless Tobacco: Never Used Alcohol Use Standard Drinks/Week Comments No 0 (1 standard drink = 0.6 oz pure alcoho l) Sex Assigned at Date Recorded Not on file documented as of this encounter Miscellaneous Notes Telephone Encounter - Silvano Lares - 08/07/2020 4:53 PM EDT LMOAM X1 to schedule 6 week (telehealth) follow-up with Dr. Dubon. documented in this encounter Plan of Treatment Not on filedocumented as of this encounter Goals Goal Patient Goal Associated Recent Patient-Stated? Author Type Problems Progress Home Medication Patient Yes Irish, Compliance and Facing Rekha Roman Understanding Action Plan [facility] Note: Formatting of this note might be d ifferent from the original. Reduction in use of SMILEY to 1-2 nebulize r treatments per day. Measured by: Patient report Time frame: 6 months documented as of this encounter Visit Diagnoses Not on filedocumented in this encounter Care Teams Stone Cutter Relationship Specialty Start Date End Date Brandee Fuchs APRN PCP - General Family Medicine 01/17/19 [address] [place] [address] documented as of this encounter
--- OUTSIDE RECORDS SUMMARY | 2022-07-09 01:14 | XMS_ITS | Encounter Summary ---
:1975 Author Organization [facility] [place] [address] Care Team Providers Name Role Phone Brandee Fuchs MAVIS Primary Care Provider Encounter Details Date Type Department Care Team Description 02/24/2021 TH Visit [place]ology [place] [facility] Berkley Hernández, Fibromyalgia; (TeleHealth) [facility] [place] [address] [phone] [place], [place] [address] Social History Tobacco Use Types Packs/Day Years Used Date Former Smoker Cigarettes 0.5 11 Quit: 01/05/20 03 Smokeless Tobacco: Never Used Alcohol Use Standard Drinks/Week Comments No 0 (1 standard drink = 0.6 oz pure alcoho l) Sex Assigned at Date Recorded Not on file documented as of this encounter Progress Notes Berkley Hernández APRN - 02/24/2021 1:00 PM EDT Rheumatology Progress Note HPI / Rheum Hx: -FMS, hypermobility, ?EDS type III -neck pain, low back pain, polyarthralgia -Needs diagnostic PSG, failed home sleep apnea test -RF, CCP, HLA-B27 neg -EMG wnl 2017, skin bx at that time as well but no reported path results -chronic LATHA, txed with infusion which helped but poor tolerance -06/11/19 SIJ xr nl at OSH Interval Hx Her joints are bothering her. Progressively getting worse. Her hips and knees. Ankles and shoulders as well. Her hip feels like it is popping out of place a couple times per day. Almost a year ago last did formal PT. Was released in the past because little progress and PT caused her pain. She just started a new asthma medication, so planning to get off prednisone soon. Then would be interested in starting the meloxicam. ROS: Pulm Follows with pulm for uncontrolled [...] boyfriend who smokes.?? 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 ?? [...] pain in the setting of FMS and hypermobililty. She has had normal EMG and skin bx as ordered by Dr. Camargo in the past. Prior work-up for inflammatory arthritis was unremarkable. Tested for lyme at onset of all of this and neg. Prior meds that were ineffective or not tolerated: cyclobenzaprine, elavil, cymbalta, indomethacin, tramadol, gabapentin, savella. MMJ, LDN, meloxicam were recommended in the past but not pursued. Worries about humidity with pool therapy. Not interested in massage as does not like to be touched. Not interested in acupuncture as afraid of needles. In the past I have recommended she might meet with a complementary medicine practitioner d/t to aversion to medications considering h/o intolerances. She is open to starting an NSAID in the future. Discussed that if she could get below 10mg of prednisone, ideally around 8mg, we could start her on Celebrex. She is amenable to this plan. We will be intouch after her early March pul appt to discuss the status of her pred taper, which will be dictatedby pul. Patient verbally consents to this telephone visit and understands that this visit may be billed, similar to a clinic office visit. I provided care to the patient today via telephone call. The total time associated with this visit was 15 min documented in this encounter Plan of Treatment Not on filedocumented as of this encounter Goals Goal Patient Goal Associated Recent Patient-Stated? Author Type Problems Progress DH Home Medication Patient Yes Irish, Compliance and Facing Humphreysia Jessie Understanding Action Plan [facility] Note: Formatting of this note might be d ifferent from the original. Reduction in use of SMILEY to 1-2 nebulize r treatments per day. Measured by: Patient report Time frame: 6 months documented as of this encounter Visit Diagnoses Diagnosis Fibromyalgia Mylagia and myositis, unspecified Hypermobile joints Other joint derangement, not elsewhere c lassified, unspecified site documented in this encounter Care Teams Bottle House Pumper Relationship Specialty Start Date End Date Brandee Fuchs APRN PCP - General Family Medicine 01/17/[address] [place] [address] documented as of this encounter
--- OUTSIDE RECORDS SUMMARY | 2022-07-09 01:14 | XMS_ITS | Encounter Summary ---
:1975 Author Organization [facility] [place] [address] Care Team Providers Name Role Phone Brandee Fuchs MAVIS Primary Care Provider Encounter Details Date Type Department Care Team Description 07/07/2020 Telephone Pulmonology at [facility] [place] [address] Social History Tobacco Use Types Packs/Day Years Used Date Former Smoker Cigarettes 0.5 11 Quit: 01/05/20 03 Smokeless Tobacco: Never Used Alcohol Use Standard Drinks/Week Comments No 0 (1 standard drink = 0.6 oz pure alcoho l) Sex Assigned at Date Recorded Not on file documented as of this encounter Miscellaneous Notes Telephone Encounter - Jaimie Simmons LNA - 07/07/2020 10:59 AM EDT LM for pt to call us back to confirm appts on 07/09, PFTs and Dr. Dubon. documented in this encounter Plan of Treatment Not on filedocumented as of this encounter Goals Goal Patient Goal Associated Recent Patient-Stated? Author Type Problems Progress DH Home Medication Patient Yes Irish, Compliance and Facing Rekha Roman Understanding Action Plan [facility] Note: Formatting of this note might be d ifferent from the original. Reduction in use of SMILEY to 1-2 nebulize r treatments per day. Measured by: Patient report Time frame: 6 months documented as of this encounter Visit Diagnoses Not on filedocumented in this encounter Care Teams Finance Lecturer Relationship Specialty Start Date End Date Brandee Fuchs APRN PCP - General Family Medicine 01/17/19 [address] [place] [address] documented as of this encounter
--- OUTSIDE RECORDS SUMMARY | 2022-07-09 01:14 | XMS_ITS | Encounter Summary ---
:1975 Author Organization [facility] [place] [address] Care Team Providers Name Role Phone Brandee Fuchs APRN Primary Care Provider Encounter Details Date Type Department Care Team Description 01/05/2021 Telephone Pulmonology at [facility] [place] [address] Social History Tobacco Use Types Packs/Day [...] Rekha Roman Understanding Action Plan [facility] Note: Formatting of this note might be d ifferent from the original. Reduction in use of SMILEY to 1-2 nebulize r treatments per day. Measured by: Patient report Time frame: 6 months documented as of this encounter Visit Diagnoses Not on filedocumented in this encounter Care Teams Grounds Manager Relationship Specialty Start Date End Date Brandee Fuchs APRN PCP - General Family Medicine 01/17/19 [address] [place], [place] [address] documented as of this encounter
--- OUTSIDE RECORDS SUMMARY | 2022-07-09 01:14 | XMS_ITS | Encounter Summary ---
:1975 Author Organization [facility] [place] [address] Care Team Providers Name Role Phone DanielBrandee huynh Obdulia GAMBLE Primary Care Provider Reason for Visit Reason Onset Date Comments Follow-up 04/09/2021 Encounter Details Date Type Department Care Team Description 04/09/2021 Telephone Rheumatology at [facility] Erica Garrison, [place] [address] Social History Tobacco Use Types Packs/Day Years Used Date Former Smoker Cigarettes 0.5 11 Quit: 01/05/20 03 Smokeless Tobacco: Never Used Alcohol Use Standard Drinks/Week Comments No 0 (1 standard drink = 0.6 oz pure alcoho l) Sex Assigned at Date Recorded Not on file documented as of this encounter Miscellaneous Notes Telephone Encounter - Erica Garrison RN - 04/09/2021 9:13 AM EDT Cristy from Legal office calls to ask for Berkley Hernández NP to fill out Disability Forms for Malu, states this is an urgent matter due to court date coming up soon. Called and spoke with [employer] Inspector office and advised there was no mention of disability in regards to Rheumatology Disability noted in Last office visit. I advised there is mention to Malu not working due to Uncontrolled Asthma and perhaps they need to reach out to Pulmonology for Forms for disability. Advised we generally can offer Office notes and refer to Occupational Medicine if Disability needs to be determined. Forms are what is needed and she will reach out to Pulmonology if needed. No documentation released from Rheumatology at this time. Will notify her new provider of this call. documented in this encounter Plan of Treatment [...] on filedocumented in this encounter Care Teams Bank President Relationship Specialty Start Date End Date Brandee Fuchs, SHEET METAL ENGINEER PCP - General Family Medicine 01/17/19 [address] [place] [address] documented as of this encounter
--- OUTSIDE RECORDS SUMMARY | 2022-07-09 01:14 | XMS_ITS | Encounter Summary ---
:1975 Author Organization [facility] [place] [address] Care Team Providers Name Role Phone Brandee Fuchs APRN Primary Care Provider Encounter Details Date Type Department Care Team Description 03/25/2021 Telephone Pulmonology at [facility] [place] [address] Social History Tobacco Use Types Packs/Day [...] Rekha Roman Understanding Action Plan [facility] Note: Formatting of this note might be d ifferent from the original. Reduction in use of SMILEY to 1-2 nebulize r treatments per day. Measured by: Patient report Time frame: 6 months documented as of this encounter Visit Diagnoses Not on filedocumented in this encounter Care Teams Diagrammer And Seamer Relationship Specialty Start Date End Date Brandee Fuchs APRN PCP - General Family Medicine 01/17/19 [address] [place], [place] [id number] documented as of this encounter
--- OUTSIDE RECORDS SUMMARY | 2022-07-09 01:14 | XMS_ITS | Encounter Summary ---
:1975 Author Organization [facility] [address] Care Team Providers Name Role Phone Brandee Fuchs APRN Primary Care Provider Encounter Details Date Type Department Care Team Description 06/02/2020 Telephone [facility] [place] [address] Social History Tobacco Use Types Packs/Day [...] on filedocumented in this encounter Care Teams Screen Printing Supervisor Relationship Specialty Start Date End Date Brandee Fuchs APRN PCP - General Family Medicine 01/17/19 [address] [place], [place] [id number] documented as of this encounter
--- OUTSIDE RECORDS SUMMARY | 2022-07-09 01:14 | XMS_ITS | Encounter Summary ---
:1975 Author Organization [facility] [place] [address] Care Team Providers Name Role Phone Daniellino Brandee Lino GAMBLE Primary Care Provider Encounter Details Date Type Department Care Team Description 05/29/2020 TH Visit Pain and Spine Jodi Mckeon, Fibromyal alejandro; (TeleHealth) Center at [facility] PsyD Psychological factor affecting physical condition [facility] [address], [place] [phone] Social History Tobacco Use Types Packs/Day Years Used Date Former Smoker Cigarettes 0.5 11 Quit: 01/05/20 03 Smokeless Tobacco: Never Used Alcohol Use Standard Drinks/Week Comments No 0 (1 standard drink = 0.6 oz pure alcoho l) Sex Assigned at Date Recorded Not on file documented as of this encounter Progress Notes Jodi Mckeon PsyD - 05/29/2020 2:45 PM EDT Behavioral Medicine - [facility] Follow up Name: Malu De Patient's age: 44 y.o. Date: 03/24/2020 Duration of appt: 60 min PP; c/o multisite diffuse pain secondary to comorbid Sofy-Danlos syndrome and fibromyalgia, (note that problem list only specifies asthma, and it is not clear what type of EDS Ms. Santino has been dx'dwith - it appears that many of Ms. De's active diagnoses have been resolved in her problem listby a Pharmacy provider, for reasons that are unclear. ). SUMMARY: 44 y.o. year old single white female from [facility] with hx of Ehler's Danlos syndrome and fibromyalgia referred by Rick Reynaga MD. Seen today in person for follow-up as she is not able to reliably engage in telehealth due to poor internet connectivity. Pt struggling with ongoing pain in s/o multiple psychosocial stressors and comorbid health conditions including recent of her 23-year-old daughter, possible ROSALVA, and asthma. Current relevant Rxs include low-dose naltrexone and meloxicam. S/O Previous Pain summary: Malu reports an average level of pain of 10/10, which she states interferes with her ability to walk, carry objects, and climb stairs all the time, and which requires her to use a cane or other assistive device all the time.?? She reports significant interference with her ability to bathe, dress, groom herself, and use the bathroom.? Malu reports that pain completely limits her basic physical activities, and she has extremely lowlevels of energy, strength, and endurance.??She did not answer a question about concern about injuring herself if she is more active, but did indicate that she believes it is somewhat unsafe to exercise. She states that pain greatly affects her self-esteem, and reports severe levels of depression (PHQ9 = 23), moderate anxiety, significant tension and problems with concentration that make it extremelydifficult to work, take care of things at home, and get along with other people.?? Malu was screened for suicidal ideation, which she denied. Today's appointment: Patient states that her pain is the same, grief is the same and that she is dealing with it. States that her mood is been the same as its always been, and states that she is not depressed. Again reiterates that discussing her emotional concerns is uncomfortable for her. Her son has been out of school. They are home a lot. She sleeps poorly, her pain awakens a lot because any movement causes pain. Reports no progress with her PT because the EDS is aggravated by her exercises for her Fibro. Her at home sleep study did not work. Patient is frustrated, that she has been referred to a psychologist for better coping. She reminds me she can't hug people because high pain levels, but she deals with these things. She states, I have been dealing with it. I don't know what I need to do for things to be different. Patient feels that she has discussed her concerns with me previously and is not sure why she is being asked to work with me, noting that she feels she is coping with her pain. I provided empathy and reflection, noting that it has been difficult to being setting therapeutic goals as we have not been able to meet consistently, but also due to patients considerable reluctance to discuss her emotional experience. Assessment It has been frustrating for Ms. De because the agreed-upon schedule of appointments was not entered into the system for unclear reasons, and her last in-person appointment needed to be cancelled dueto this mortgage loan underwriter's unexpected personal family matter. At this stage, she feels quite stuck and is pre-c ontemplative about her ability to make changes that could improve her pain experience. She may benefit from an evaluation with Tc Meredith DPT, who might be able to suggest a home exercise program that could begin to address fibromyalgia concerns while also being safe for EDS (it is unclear to this wr iter if patient's joint pain related to EDS is harmful or also part of her chronic pain picture. It is also unfortunate that she has been unable to address her sleep concerns, as poor sleep often is a significant element of increased pain levels of fibromyalgia. PLAN: Malu agreed to follow up phone appointment. I will also try to coordinate a joint in personappointment with Tc Meredith DPT. Next appt focused on PHI and treatment planning. She will be provided a copy of the Personal health inventory by email but also in the mail. documented in this encounter Plan of Treatment [...] Diagnoses Diagnosis Fibromyalgia Mylagia and myositis, unspecified Psychological factor affecting physical condition Psychic factors associated with diseases classified elsewhere documented in this encounter Care Teams Pediatrician/Medical Doctor Relationship Specialty Start Date End Date Brandee Fuchs, FLIGHT TEST MECHANIC PCP - General Family Medicine 01/17/19 [address] [place] [address] documented as of this encounter
--- OUTSIDE RECORDS SUMMARY | 2022-07-09 01:14 | XMS_ITS | Encounter Summary ---
:1975 Author Organization [facility] [place] [address] Care Team Providers Name Role Phone Brandee Fuchs APRN Primary Care Provider Encounter Details Date Type Department Care Team Description 03/12/2021 Telephone Pulmonology at [facility] [place] [address] Social History Tobacco Use Types Packs/Day [...] and Facing Rekha Roman Understanding Action Plan [facility] Note: Formatting of this note might be d ifferent from the original. Reduction in use of SMILEY to 1-2 nebulize r treatments per day. Measured by: Patient report Time frame: 6 months documented as of this encounter Visit Diagnoses Not on filedocumented in this encounter Care Teams Production Director Relationship Specialty Start Date End Date Brandee Fuchs APRN PCP - General Family Medicine 01/17/19 [address] [place], [place] [id number] documented as of this encounter
--- OUTSIDE RECORDS SUMMARY | 2022-07-09 01:14 | XMS_ITS | Encounter Summary ---
:1975 Author Organization [facility] Address [facility] [place] [address] Care Team Providers Name Role Phone Brandee Fuchs Obdulia GAMBLE Primary Care Provider Encounter Details Date Type Department Care Team Description 04/22/2021 Hospital Encounter Pulmonology at [facility] Severe persistent [facility] asthma, u [place] [place] [address] Social History Tobacco Use Types Packs/Day Years Used Date Former Smoker Cigarettes 0.5 11 Quit: 01/05/20 03 Smokeless Tobacco: Never Used Alcohol Use Standard Drinks/Week Comments No 0 (1 standard drink = 0.6 oz pure alcoho l) Sex Assigned at Date Recorded Not on file documented as of this encounter Medications at Time of Discharge Medication Sig Dispensed Refills Start Date End Date meloxicam (MOBIC) 7.5 Take 1 tablet by mouth 30 tablet 2 mg Tablet daily. Take with food. TURMERIC ORAL Take by mouth. 0 dexamethasone Take 1 tablet by mouth 9 tablet 0 06/17/2020 (Decadron) 4 mg daily. Take one tablet TabletIndications: daily X3 days following Iron deficiency Iron infusion. anemia, unspecified iron deficiency anemia type dexamethasone Take 1 tablet by mouth 6 tablet 0 02/21/2020 (Decadron) 4 mg Tablet daily. Take daily x 3 days after each iron infusion ipratropium-albuteroL Take 3 mLs by 0 (DUONEB) 0.5 mg-3 nebulization every 6 mg(2.5 mg base)/3 mL hours as needed. Solution for Nebulization cholecalciferol, Take 1,000 Units by 0 Vitamin D3, 1,000 unit mouth daily. Capsule ondansetron (ZOFRAN) 4 Take 1 tablet by mouth 30 tablet 3 0 06/26/2019 mg Tablet 2 times daily as needed for Nausea. Take 1 hour prior to oral iron. multivitamin Take 1 tablet by mouth 0 (THERAGRAN) Tablet daily. folic acid (FOLVITE) 1 Take 1 mg by mouth 0 mg Tablet daily. albuterol (PROVENTIL) Take 2.5 mg by 0 09/10/2016 2.5 mg /3 mL (0.083 %) nebulization as needed. Solution for Nebulization montelukast Take 10 mg by mouth 0 09/10/2016 (SINGULAIR) 10 mg daily. Tablet omeprazole (PRILOSEC) Take 40 mg by mouth 0 09/10 40 mg Capsule, Delayed daily. Release(E.C.) BREO ELLIPTA 200-25 Inhale 1 puff into the 1 02/2016 mcg/dose Disk with lungs daily. Device SPIRIVA RESPIMAT 1.25 Inhale 2 puffs into the 1 1 mcg/actuation Mist lungs daily. triamcinolone 2 sprays by Nasal route 0 (NASACORT OR NASACORT daily. OTC) 55 mcg Aerosol, [place] Fasenra Pen 30 mg/mL Inject 30 mg 0 01/28/2021 Auto-Injector subcutaneously Every 8 Weeks. predniSONE (Deltasone) Take 1 tablet by mouth 30 tablet 2 0 03/13/2021 06/17/2021 5 mg Tablet daily. Take with 1 mg tabs to equal 8 mg daily predniSONE (Deltasone) Take 3 tablets by mouth 90 tablet 2 03/13/2021 06/17/2021 1 mg Tablet daily. Take with 5 mg day to equal 8 mg daily. documented as of this encounter Plan of [...] 6 months documented as of this encounter Procedures Procedure Name Priority Date/Time Associated Diagnosis Comme nts PULMONARY FUNCTION Routine 04/22/2021 2:18 PM Severe persisten t Results for this TEST EDT asthma, unspecified procedur e are in whether complicated the resu lts section. documented in this encounter Results Pulmonary Function Testing (04/22/2021 [...] / FVC LLN 71 % COMPAS PFT WKN55-30 Actual 2.28 L/s COMPAS PFT Pre-BD [id number] Pre-BD 81 % COMPAS PFT % of Predicted [id number] 2.83 L/s COMPAS PFT Predicted GET74-96 Pre-BD -0.73 COMPAS PFT Z-Score DLCO Hb [...] complicated documented in this encounter Care Teams Infrastructure Technician Relationship Specialty Start Date End Date Brandee Fuchs, REIMBURSEMENT CONSULTANT PCP - General Family Medicine 01/17/19 [address] [place] [address] documented as of this encounter
--- OUTSIDE RECORDS SUMMARY | 2022-07-09 01:14 | XMS_ITS | Encounter Summary ---
:1975 Author Organization [facility] [place] [address] Care Team Providers Name Role Phone Brandee Fuchs APRN Primary Care Provider Reason for Visit Reason Comments Medication Management Patient Education Encounter Details Date Type Department Care Team Description 11/12/2020 Specialty Pharmacy Pharmacy at [facility] Ravi [facility] GEOVANNA Guillen Managemen t; [place] [address] Social History Tobacco Use Types Packs/Day Years Used Date Former Smoker Cigarettes 0.5 11 Quit: 01/05/20 03 Smokeless Tobacco: Never Used Alcohol Use Standard Drinks/Week Comments No 0 (1 standard drink = 0.6 oz pure alcoho l) Sex Assigned at Date Recorded Not on file documented as of this encounter Progress Notes Wilmer Rodrigues RPH - 11/12/2020 2:45 PM EST Clinical Management Plan: Unable to Contact Patient Specialty Pharmacy Consultation; Wilmer Rodrigues RPH Comprehensive Medication Management (CMM) Malu Pollocklan MsBrian De is a 44 y.o. (1975) female that Specialty Pharmacy has attempted to reachon 5 separate occasions since 09/23/2020 to offer a new start consult on benralizumab. Due to lack of response, we will cease outreach at this point. I left a message today asking Malu to call us back should there be an update to her care plan. Adherence: Gaps in fill history: has not started treatment Was a change made to the Care Plan: yes - has not started benralizumab If yes, should the medication be held: No At this time the Specialty pharmacy will only attempt to contact the patient every 5 business days until further notice. Wilmer Rodrigues [facility] 11/12/20 2:46 PM documented in this encounter Plan of [...] on filedocumented in this encounter Care Teams Tobacco Educator Relationship Specialty Start Date End Date Brandee Fuchs, FEED ELEVATOR WORKER PCP - General Family Medicine 01/17/19 [address] [place] [address] documented as of this encounter
--- OUTSIDE RECORDS SUMMARY | 2022-07-09 01:14 | XMS_ITS | Encounter Summary ---
:1975 Author Organization [facility] [place] [address] Care Team Providers Name Role Phone Brandee Fuchs APRN Primary Care Provider Reason for Visit Reason Onset Date Comments Medication Refill 10/08/2020 Encounter Details Date Type Department Care Team Description 10/08/2020 Refill [place] [facility] [place]essio Gilbert, [place] [address] Social History Tobacco Use Types Packs/Day [...] and Facing Rekha Roman Understanding Action Plan [facility] Note: Formatting of this note might be d ifferent from the original. Reduction in use of SMILEY to 1-2 nebulize r treatments per day. Measured by: Patient report Time frame: 6 months documented as of this encounter Visit Diagnoses Not on filedocumented in this encounter Care Teams Crepe Sole Scourer Relationship Specialty Start Date End Date Brandee Fuchs, MAVIS PCP - General Family Medicine 01/17/19 [address] [place], [place] [address] documented as of this encounter
--- OUTSIDE RECORDS SUMMARY | 2022-07-09 01:14 | XMS_ITS | Encounter Summary ---
:1975 Author Organization [facility] [place] [address] Care Team Providers Name Role Phone DanielBrandee huynh Obdulia GAMBLE Primary Care Provider Encounter Details Date Type Department Care Team Description 12/29/2020 TH Visit Rheumatology at [facility] Berkley Hernández, Fibromyalgia (TeleHealth) [facility] [place] [address] [facility] [phone] [place], [place] [address] (Wo rk) Social History Tobacco Use Types Packs/Day Years Used Date Former Smoker Cigarettes 0.5 11 Quit: 01/05/20 03 Smokeless Tobacco: Never Used Alcohol Use Standard Drinks/Week Comments No 0 (1 standard drink = 0.6 oz pure alcoho l) Sex Assigned at Date Recorded Not on file documented as of this encounter Progress Notes Berkley Hernández APRN - 12/29/2020 4:00 PM EDT Rheumatology Progress Note HPI / Rheum Hx: -FMS, hypermobility, ?EDS type III -neck pain, low back pain, polyarthralgia -Needs diagnostic PSG, failed home sleep apnea test -RF, CCP, HLA-B27 neg -EMG wnl 2016, skin bx at that time as well but no reported path results -chronic LATHA, txed with infusion which helped but poor tolerance -06/11/19 SIJ xr nl at OSH Interval Hx Pool therapy-did when younger, with humidity and asthma can't do it now though Doesn't like when people touch her Her joint pain is getting worse and worse Oral medications make her nervous, she hasn't tolerated well in the past, they affect her mind, has become very anxious, paranoid Did not start LDN after last visit Prescription ibu worked for her for a long time in early to mid 20s but ultimately stopped helping Past OV 09/02/2020 She didn't want to be videotaped so [...] about breathing in humid pool environment ROS: Pulorly Follows with pulm for uncontrolled asthma, dxed [...] boyfriend who smokes.?? 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 ?? [...] cyclobenzaprine, elavil, cymbalta, indomethacin, tramadol, gabapentin, savella MMJ, LDN, meloxicam were recommended in the past but not pursued. Worries about humidity with pool therapy. Not interested in massage as does not like to be touched. Not interested in acupuncture as afraid of needles. Discussed that I would not want to put her on meloxicam as she is on prednisone 10mg daily with pulmat this time. She will let me know if wants to try in the future once off prednisone Discussed that since she is averse to trying medications in light of past intolerances she might consider meeting with a complementary medicine practitioner. RTC prn Patient verbally consents to this telephone visit and understands that this visit may be billed, similar to a clinic office visit. I provided care to the patient today via telephone call. The total time associated with this visit was 30 minutes. documented in this encounter Plan of Treatment Not on filedocumented as of this encounter Goals Goal Patient Goal Associated Recent Patient-Stated? Author Type Problems Progress DH Home Medication Patient Yes Irish, Compliance and Facing Melnirua J , Understanding Action Plan [facility] Note: Formatting of this note might be d ifferent from the original. Reduction in use of SMILEY to 1-2 nebulize r treatments per day. Measured by: Patient report Time frame: 6 months documented as of this encounter Visit Diagnoses Diagnosis Fibromyalgia Mylagia and myositis, unspecified documented in this encounter Care Teams Mold Polisher Relationship Specialty Start Date End Date Brandee Fuchs, MEDICAL OFFICE PROFESSIONAL INSTRUCTOR PCP - General Family Medicine 01/17/19 [address] [place] [address] documented as of this encounter
--- OUTSIDE RECORDS SUMMARY | 2022-07-09 01:14 | XMS_ITS | Encounter Summary ---
:1975 Author Organization [facility] [address] Care Team Providers Name Role Phone Brandee Fuchs MAVIS Primary Care Provider Reason for Visit Reason Comments Specialty Pharmacy Review Encounter Details Date Type Department Care Team Description 09/10/2020 Specialty Pharmacy Pharmacy at [facility] [place] [facility] [place] [address] Social History Tobacco Use Types Packs/Day Years Used Date Former Smoker Cigarettes 0.5 11 Quit: 01/05/20 03 Smokeless Tobacco: Never Used Alcohol Use Standard Drinks/Week Comments No 0 (1 standard drink = 0.6 oz pure alcoho l) Sex Assigned at Date Recorded Not on file documented as of this encounter Progress Notes Isabella Chairez - 09/10/2020 11:59 PM EST The - Specialty Pharmacy has completed a benefits investigation for Malu De to review their eligibility to fill at [facility]. Per patient's medication list they [...] Facing Rekha Roman , Understanding Action Plan [facility] Note: Formatting of this note might be d ifferent from the original. Reduction in use of SMILEY to 1-2 nebulize r treatments per day. Measured by: Patient report Time frame: 6 months documented as of this encounter Visit Diagnoses Not on filedocumented in this encounter Care Teams Claims Collector Relationship Specialty Start Date End Date Brandee Fuchs, CIRCUIT RIDER PCP - General Family Medicine 01/17/19 [address] [place] [address] documented as of this encounter
--- OUTSIDE RECORDS SUMMARY | 2022-07-09 01:14 | XMS_ITS | Encounter Summary ---
:1975 Author Organization [facility] [place] [address] Care Team Providers Name Role Phone DanielBrandee huynh Obdulia GAMBLE Primary Care Provider Reason for Visit Reason Onset Date Comments Follow-up 03/20/2021 on [facility] message Encounter Details Date Type Department Care Team Description 03/20/2021 Telephone Rheumatology at [place] Erica Garrison, Follow-up (on [facility] Kilo hurt RN message) [place] [address] Social History Tobacco Use Types Packs/Day Years Used Date Former Smoker Cigarettes 0.5 11 Quit: 01/05/20 03 Smokeless Tobacco: Never Used Alcohol Use Standard Drinks/Week Comments No 0 (1 standard drink = 0.6 oz pure alcoho l) Sex Assigned at Date Recorded Not on file documented as of this encounter Miscellaneous Notes Telephone Encounter - Erica Garrison RN - 03/20/2021 4:03 PM EDT I spoke with Malu and she reports bad nausea and heart flutters when she takes Celebrex. Stats nausea settles down after a couple of hours. Reports she was getting nervous that she would not hear from anyone. I advised her to hold Celebrex and if her condition worsens then she needs to go to the ER. Reports history of allergies to many medications. Malu agrees with plan of care at this time. documented in this encounter Plan of Treatment Not on filedocumented as of this encounter Goals Goal Patient Goal Associated Recent Patient-Stated? Author Type Problems Progress DH Home Medication Patient Yes Irish, Compliance and Facing Rekha Roman , Understanding Action Plan [facility] Note: Formatting of this note might be d ifferent from the original. Reduction in use of SMILEY to 1-2 nebulize r treatments per day. Measured by: Patient report Time frame: 6 months documented as of this encounter Visit Diagnoses Not on filedocumented in this encounter Care Teams Mysql Database Administrator Relationship Specialty Start Date End Date Brandee Fuchs, TAX COMPLIANCE AGENT PCP - General Family Medicine 01/17/19 [address] [place] [address] documented as of this encounter
--- OUTSIDE RECORDS SUMMARY | 2022-07-09 01:14 | XMS_ITS | Encounter Summary ---
:1975 Author Organization [facility] [place] [address] Care Team Providers Name Role Phone DanielBrandee huynh Obdulia GAMBLE Primary Care Provider Encounter Details Date Type Department Care Team Description 05/02/2020 Telephone Rheumatology at [facility] [place] [address] Social History Tobacco Use Types Packs/Day Years Used Date Former Smoker Cigarettes 0.5 11 Quit: 01/05/20 03 Smokeless Tobacco: Never Used Alcohol Use Standard Drinks/Week Comments No 0 (1 standard drink = 0.6 oz pure alcoho l) Sex Assigned at Date Recorded Not on file documented as of this encounter Miscellaneous Notes Telephone Encounter - Silvano Lares - 05/02/2020 9:25 AM EDT LMOAM X1 to schedule 4 month f/u with Berkley Hernández documented in this encounter Plan of Treatment [...] on filedocumented in this encounter Care Teams Sales And Production Manager Relationship Specialty Start Date End Date Brandee Fuchs, SHAPER SET UP OPERATOR PCP - General Family Medicine 01/17/19 [address] [place] [address] documented as of this encounter
--- OUTSIDE RECORDS SUMMARY | 2022-07-09 01:14 | XMS_ITS | Encounter Summary ---
:1975 Author Organization [facility] [place] [address] Care Team Providers Name Role Phone DanielBrandee huynh Obdulia GAMBLE Primary Care Provider Encounter Details Date Type Department Care Team Description 03/25/2021 TH Visit Rheumatology at [facility] [place] Berkley Hernández, Fibromyalgia (TeleHealth) [facility] [place] [address] [facility] [phone] [place], [place] [address] (Wo rk) Social History Tobacco Use Types Packs/Day Years Used Date Former Smoker Cigarettes 0.5 11 Quit: 01/05/20 03 Smokeless Tobacco: Never Used Alcohol Use Standard Drinks/Week Comments No 0 (1 standard drink = 0.6 oz pure alcoho l) Sex Assigned at Date Recorded Not on file documented as of this encounter Progress Notes Berkley Hernández APRN - 03/25/2021 8:00 AM EDT Rheumatology Progress Note HPI / Rheum [...] SIJ xr nl at OSH Interval Hx Heart flutters and nausea. She doesn't want to try the Effexor because had such a poor response to other antidepressants, coleen Savella. Would be open to meloxicam. Neck, back shoulders, hips, knees are problem areas right now Back, hips, femurs are the worst She noticed no difference decrease her pred from 10 to 8mg Past OV 03/25/2021 Her joints are bothering her. Progressively getting [...] be interested in starting the meloxicam. ROS: Elton Follows with pulorly for uncontrolled asthma, dxed with asthma at 16yo, which happened at the sametime she started with chronic pain; she does 5-12 nebs per day; on pred 8mg daily MS Diffuse arthralgia and myalgia Neuro [...] boyfriend who smokes.?? 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 ?? [...] tolerated: cyclobenzaprine, elavil, cymbalta, indomethacin, tramadol, gabapentin, savella, celebrex MMJ, LDN, meloxicam were recommended in the past but not pursued. Worries about humidity with pool therapy. Not interested in massage as does not like to be touched. Not interested in acupuncture as afraid of needles. Within the past couple of weeks we started her on Celebrex 100mg. She did not tolerate d/t palpitations and nausea. We discussed trial of Effexor v low dose meloxicam today. She favors the second in light of her reaction to antidepressants in the past. Will start meloxicam 7.5mg once daily. We discussed must take meloxicam with food and must take ppi daily, coleen as she is on pred 8mg. She will let us know if she has any problems tolerating. In the future, should the meloxicam not work well for her, I would strongly recommend she might meetwith a complementary medicine practitioner d/t medication intolerances and us exhausting our pharmacologic options, as well as PT causing her pain. Meeting again with a pain psychologist would be another good option. I have recommended mmj and ldn in the past but she was not interested in trying. I will have her f/u with Erika on the phone in 1 month. Patient verbally consents to this telephone visit [...] Patient Yes Irish, Compliance and Facing Melyssia Jessie , Understanding Action Plan [facility] Note: Formatting of this note might be d ifferent from the original. Reduction in use of SMILEY to 1-2 nebulize r treatments per day. Measured by: Patient report Time frame: 6 months documented as of this encounter Visit Diagnoses Diagnosis Fibromyalgia Mylagia and myositis, unspecified documented in this encounter Care Teams Finish Remover Relationship Specialty Start Date End Date Brandee Fuchs, RETREAD BUILDER PCP - General Family Medicine 01/17/19 [address] [place] [address] documented as of this encounter
--- OUTSIDE RECORDS SUMMARY | 2022-07-09 01:14 | XMS_ITS | Encounter Summary ---
:1975 Author Organization [facility] [place] [address] Care Team Providers Name Role Phone Brandee Fuchs MAVIS Primary Care Provider Encounter Details Date Type Department Care Team Description 04/27/2021 TH Visit Rheumatology at [facility] [place] Erika Swan, Fibromyalgia; (TeleHealth) [facility] Hypermobility arthralgia; Drive [facility] Arthralgia, unspecified join t; [place], [place] Center Fatigue, unspecified type [id number] [place], [place] [phone] [id number] Social History Tobacco Use Types Packs/Day Years Used Date Former Smoker Cigarettes 0.5 11 Quit: 01/05/20 03 Smokeless Tobacco: Never Used Alcohol Use Standard Drinks/Week Comments No 0 (1 standard drink = 0.6 oz pure alcoho l) Sex Assigned at Date Recorded Not on file documented as of this encounter Patient Instructions Patient InstructionsErika Swan APRN - 04/27/2021 3:00 PM EDT Trial Meloxicam or low-dose Naltrexone as prescribed by MAVIS Palmer, PhD, [facility]. [facility]. [place] EDS specialist: Lily Denton MD at [facility] [place] (per Berkley Hernández APRN) [email or web address] (this is the reference I mentioned during your visit). The cornerstones of fibromyalgia treatment include exercise, good sleep, and depression/anxiety management. The goal of treatment is to make the pain more manageable, not to completely resolve pain. Fibromyalgia information and treatment options: Fibromyalgia (FMS) is a common health problem marked by widespread pain and tenderness. It is frequently associated with fatigue, headaches, irritable bowel symptoms, irritable bladder symptoms, paresthesias, a sense of swelling in the joints, difficulty with concentration, and disordered sleep. In 2010, the [place] [employer] revised their criteria for FMS to expand the definition of the disorder beyond pain, and to give more emphasis and weight to other symptoms including fatigue, depression, non-restorative sleep and somatic symptoms (irritable bowel syndrome, irritable bladder syndrome, cold extremities, morning stiffness, headaches, cognitive problems, dry eyes, easy bruising, hair loss, muscle weakness, abdominal pain). Most importantly, the criteria do not require a tender point count. The cause of fibromyalgia is not known. It is likely multifactorial for different stimuli can resultin the same clinical condition. Nevertheless, there is an understanding that fibromyalgia representsgeneralized allodynia. This means nonpainful stimuli, such as pressure, are perceived as painful. This can be demonstrated at the tender points, but also other areas of the body and may account for theirritable bladder and irritable bowel symptoms. It is NOT a chronic viral infection, Lyme disease orlatent lupus. The cause of this widespread allodynia is not known for certain, but loss of control in modulating pain stimuli at the spinal cord or central nervous system level is felt to be responsible. This results in a phenomenon known as central sensitization. Patients may also experience hyperalgesia or the amplification of normal pain signals. There may be other ???drivers?? of fibromyalgia pain. These drivers can be obstructive or central sleep apnea, restless leg syndrome, arthritis causing painful joints that interrupt sleep, and over orunder active thyroid gland function. However, unless there is soft tissue swelling of the joints a search for rheumatoid factor or antinuclear antibody is probably not warranted by complaints of joint pain alone. Treatment is divided into drugs used to improve sleep, drugs used as analgesics, exercise and cognitive behavioral therapy. PHARMACOLOGIC THERAPY Strong Evidence ?? Dual reuptake inhibitors such as: 1. Tricyclic compounds - Amitriptyline -Cyclobenzaprine 2. Serotonin-Norepinephrine reuptake inhibitors ?? Duloxetine ?? Milnacipran ?? Venlafaxine 3. Anticonvulsants ?? Gabapentin ?? Pregabalin Modest Evidence ?? Tramadol ?? Selective serotonin reuptake inhibitors Weak Evidence ?? NSAIDs No Evidence ?? Opioids, corticosteroids, benzodiazepine and non-benzodiazepine hypnotics SLEEP: Medications for sleep are widely prescribed. Low dose (10-25 mg) amitriptyline, or other tricyclics including cyclobenzaprine (5-10mg qhs), have been used. If daytime sleepiness occurs, the dosecan be taken earlier in the evening. Amitriptyline and cyclobenzapine have been shown in double-blind placebo-controlled trials to improve sleep over placebo. Attention to other sleep disturbances suchas sleep apnea, myoclonic jerks, excessive use of caffeine and alcohol and instructing patients in good sleep hygiene are also necessary. A sleep study may be useful in this regard. Diphenhydramine, zolpidem (Ambien), and benzodiazepines are not as beneficial in restoring the proper architecture of sleep. SSRI in the AM may be of benefit in treating concurrent depression or anxiety that might also interfere with sleep. PAIN: Duloxetine (Cymbalta) 30-60mg daily and milnacipran (Savella) taper, both dual serotonin and norepinephrine reuptake inhibitors, have been shown to be effective in treating the pain associated with fibromyalgia. Gabapentin (Neurontin) 100mg at bedtime or titrated up to 1200mg three times a day Pr egabalin (Lyrica) (50mg at bedtime up to 300mg a day) may be tried to help with neuropathic pain symptoms. Analgesics and nonsteroidals can be tried though frequently are of minimal benefit unless there is concomitant arthritis. Tramadol (Ultram) can be useful as it increases serotonin levels and also has analgesic properties. In fact, it has been shown in double blind, placebo controlled randomized studies to be better than placebo. Narcotics are to be avoided as there is evidence they may increase the pain of fibromyalgia. Pramiprexole (Mirapex) a dopamine agonist has also been shown to be effective indouble blind, placebo controlled trials for the treatment of FM pain and is especially useful for patients with restless leg syndrome. LIFESTYLE MODIFICATION: A prescription for aerobic exercise is aguilera to improving functioning in patients with this disease. A variety of approaches have been used, but motivation and consistency are essential. A physical therapist or a medical management trainer can be engaged in this role, but patient motivation and self- sufficiency must be encouraged. Weight training, aerobics, walking, water exercise, home programs and group exercises as well as yoga, patience chi are all effective. Stretching alone however, hasbeen shown to be less effective than placebo. COGNITIVE BEHAVIORAL THERAPY and MINDFULNESS: The final keys to success in treating fibromyalgia arecognitive behavioral therapy and mindfulness. This gets at the mind-set of the patient and encourages them to take charge of their anna. Rather than eliminating pain, cognitive behavioral therapy directs patients towards modalities that they can use to deal with pain and to function in spite of pain. Mindfulness (2.5 hours a week over 8 weeks) was shown in a 2014 Randomized Controlled Trial to reduce stress, sleep disturbance, and symptom severity although it did not alter pain or physical functioning. Exercise and cognitive behavioral therapy consistently rate better in clinical trials than any medicine tested. This has been shown over and over in different patient groups and published in several different specialty journals. documented in this encounter Progress Notes Erika Swan APRN - 04/27/2021 3:00 PM EDT Rheumatology Follow-Up Visit TELEPHONE VISIT This visit was conducted via telephone due to COVID19 restrictions and patient preference. CC: Malu De is 45 y.o. female with a history of hypermobility syndrome and fibromyalgia presenting for telephone follow up and transfer of care (from Berkley Hernández APRN). Last Office Visit: 03/25/2021 (Berkley Hernández APRN, [facility]) Rheumatology History: ?? Initial consult 09/2016 by Jm Camargo MD, for evaluation of neck pain, low back pain, and multiple joint pain. ?? Per document review with confirmation by patient at office visit: Dr. 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 ?? RF, CCP, HLA-B27, Lyme negative with initial workup. ?? EMG studies obtained on October 18, 2016 were normal. ?? Results of skin biopsy performed on January 04, 2017 showed normal epidermal nerve fiber density (left thigh and left calf) -- see [facility] report scanned 01/11/2017. ?? Chronic Iron Deficiency Anemia, treated with infusions which helped but poor tolerance ?? History of severe vitamin D deficiency. ?? 06/11/19 sacroiliac joint x-rays were normal at outside hospital. ?? 2015 unremarkable x-rays of cervical spine and lumbar spine. ?? Prior meds that were ineffective or not tolerated: cyclobenzaprine, elavil, cymbalta, indomethacin, tramadol, gabapentin, savella, celebrex ?? Medical marijuana, low-dose naltrexone, and meloxicam were recommended in the past but not pursued. ?? Worries about humidity with pool therapy. Not interested in massage as does not like to be touched. Not interested in acupuncture as afraid of needles. ?? Other: Followed by pulmonology for persistent asthma. She is currently seeking a disability claimfor this issue. Interval History: Overall, Ms. De continues to have a lot of difficulty related to chronic pain due to her fibromyalgia and hypermobility syndrome. Asthma management has been difficult and she is currently on prednisone 8 mg daily per pulmonology. This does not help with her pain. She has Meloxicam per Berkley Hernández APRN, but has not started it since she is on prednisone. Says rajniwas told she could start the meloxicam once she reduced her presumed dose to 8 mg daily (and she reduce the prednisone) but since her recent fall she has been taking ibuprofen instead. She has low-dose naltrexone but is concerned about taking it due to side effects or adverse effects experienced with all the other fibromyalgia treatments she has tried. She describes issues with her joints pulling out of place. She fell recently when she was walking and says that her left pelvic joint and knee fell out of joint. This has happened in the past with bending or while she is bed but this is a first occurrence while she was walking. It was quite scary. She hurt her hand and had a lot of swelling, bruising, and pain,especially of her thumb. Thumb joint is huge. PCP ordered an xray to assess for fracture (not yet done). Nonpharmacologic treatments: She has done PT and [facility] [place] (she says with a PT a lot experience with EDS) in the past for fibromyalgiaand hypermobility but it made the pain in her joints worse. She does not like water/pool therapy. it affects my breathing. Shower feels almost comfortable and then the shower is extremely painful. The same thing happens with swimming. High humidity affects her breathing. She also has issues with using a heating a pad. It would feel helpful for a few minutes but then very painful. Muscles would tense up. She can only drive for about 20 minutes due to pain. Has not gone for consult in [place] due to body wide pain if she stays in any position for 20 minutes then joints and muscles and back become very painful. She does not know how she would manage going to [place]. Someone would need to drive her and she would need to stay overnight. Does not sleep well. If she falls asleep from exaustion then pain and stiffness are severe and she cannot get out of bed. She describes very sharp and shooting pains. Muscles feel tight and sore and they hurt. Aching in her joints along with the sharp pains. Feels almost like she has the flu. Her whole body aches. 05/29/2020 Evaluated by Jodi Mckeon PsyD (Psychologist) per Behavioral Medicine program with [facility]. It sounds like the timing was not good for Ms. De as her 23-year-old daughter had recently (12/2019 MVA) and she was understandably struggling with that fact. Review of Systems: Per HPI SOCIAL HISTORY:? Cigarettes: 1/2 ppd x 12 years (quit at the age of 28). Pt denies any use of alcohol or illicit drugs.?? She is single, with two children (one living, 23 year old daughter 12/2019 in a car accident).?? She is currently living with her boyfriend who smokes.?? 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 ?? FAMILY HISTORY: Mother - Diabetes mellitus II Father - Chronic alcoholism; of heart and liver failure at the age of 50. Physical Examination: Not done (telephone visit) Patient is alert and oriented, in no acute distress, speech clearly articulated in full sentences with unlabored breathing, pleasant affect. DATA: See Rheumatology History Assessment/Recommendations: Malu De is 45 y.o. female with a history of previously diagnosed fibromyalgia and hypermobility syndrome. Note that I have not met Ms. De in person though I did review extensive notes and office visits related to her care in addition to a lengthy discussion today for this visit. That being said, I do feel that her symptoms are consistent with these 2 diagnoses. 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 Reviewed pros and cons of genetic testing. I would be happy to refer her to [facility] in [place] (as she had discussed with Berkley Hernández APRN), but I recommend thatshe do some research on her own first to foster realistic expectations from a consultation there if she proceeds. Structured physical therapy recommended though she has not good results with this in the past and, in fact, had exacerbations in her joint and body pain with physical therapy. Fibromyalgia: Chronic widespread pain consistent with this diagnosis. Unfortunately, she has been unable to tolerate several medications typically used for this condition. Chronic nonrestorative sleep and hypermobility most certainly exacerbate her symptoms. The cornerstones of fibromyalgia treatment i nclude exercise, good sleep, and depression/anxiety management. The goal of treatment is to make thepain more manageable, not to completely resolve pain. We had a candid conversation that at this point I am not sure what else I can do for her. I would like very much to be able to help her and make her more comfortable if possible although she has been intolerant of many medications and has not tried to that she does have on hand (meloxicam and low-dosenaltrexone. I did not have her schedule a follow up appointment and encouraged her to speak with her primary care provider for ongoing management. I would be happy to answer questions if they arise. Ms. De doesnot need to be followed in Rheumatology. I will certainly see her back in the office if her clinical situation changes. Patient Instructions Trial Meloxicam or low-dose Naltrexone as prescribed by MAVIS Palmer, PhD, [facility]. [facility]. [place] EDS specialist: Lily Denton MD at [facility] [place] [place] (per Berkley Hernández APRN) [email or web address] (this is the reference I mentioned during your visit). The cornerstones of fibromyalgia treatment include exercise, good sleep, and depression/anxiety management. The goal of treatment is to make the pain more manageable, not to completely resolve pain. Fibromyalgia information and treatment options: Fibromyalgia (FMS) is a common health problem marked by widespread pain and tenderness. It is frequently associated with fatigue, headaches, irritable bowel symptoms, irritable bladder symptoms, paresthesias, a sense of swelling in the joints, difficulty with concentration, and disordered sleep. In 2010, the [place] [employer] revised their criteria for FMS to expand the definition of the disorder beyond pain, and to give more emphasis and weight to other symptoms including fatigue, depression, non-restorative sleep and somatic symptoms (irritable bowel syndrome, irritable bladder syndrome, cold extremities, morning stiffness, headaches, cognitive problems, dry eyes, easy bruising, hair loss, muscle weakness, abdominal pain). Most importantly, the criteria do not require a tender point count. The cause of fibromyalgia is not known. It is likely multifactorial for different stimuli can resultin the same clinical condition. Nevertheless, there is an understanding that fibromyalgia representsgeneralized allodynia. This means nonpainful stimuli, such as pressure, are perceived as painful. This can be demonstrated at the tender points, but also other areas of the body and may account for theirritable bladder and irritable bowel symptoms. It is NOT a chronic viral infection, Lyme disease orlatent lupus. The cause of this widespread allodynia is not known for certain, but loss of control in modulating pain stimuli at the spinal cord or central nervous system level is felt to be responsible. This results in a phenomenon known as central sensitization. Patients may also experience hyperalgesia or the amplification of normal pain signals. There may be other ???drivers?? of fibromyalgia pain. These drivers can be obstructive or central sleep apnea, restless leg syndrome, arthritis causing painful joints that interrupt sleep, and over orunder active thyroid gland function. However, unless there is soft tissue swelling of the joints a search for rheumatoid factor or antinuclear antibody is probably not warranted by complaints of joint pain alone. Treatment is divided into drugs used to improve sleep, drugs used as analgesics, exercise and cognitive behavioral therapy. PHARMACOLOGIC THERAPY Strong Evidence ?? Dual reuptake inhibitors such as: 1. Tricyclic compounds - Amitriptyline -Cyclobenzaprine 2. Serotonin-Norepinephrine reuptake inhibitors ?? Duloxetine ?? Milnacipran ?? Venlafaxine 3. Anticonvulsants ?? Gabapentin ?? Pregabalin Modest Evidence ?? Tramadol ?? Selective serotonin reuptake inhibitors Weak Evidence ?? NSAIDs No Evidence ?? Opioids, corticosteroids, benzodiazepine and non-benzodiazepine hypnotics SLEEP: Medications for sleep are widely prescribed. Low dose (10-25 mg) amitriptyline, or other tricyclics including cyclobenzaprine (5-10mg qhs), have been used. If daytime sleepiness occurs, the dosecan be taken earlier in the evening. Amitriptyline and cyclobenzapine have been shown in double-blind placebo-controlled trials to improve sleep over placebo. Attention to other sleep disturbances suchas sleep apnea, myoclonic jerks, excessive use of caffeine and alcohol and instructing patients in good sleep hygiene are also necessary. A sleep study may be useful in this regard. Diphenhydramine, zolpidem (Ambien), and benzodiazepines are not as beneficial in restoring the proper architecture of sleep. SSRI in the AM may be of benefit in treating concurrent depression or anxiety that might also interfere with sleep. PAIN: Duloxetine (Cymbalta) 30-60mg daily and milnacipran (Savella) taper, both dual serotonin and norepinephrine reuptake inhibitors, have been shown to be effective in treating the pain associated with fibromyalgia. Gabapentin (Neurontin) 100mg at bedtime or titrated up to 1200mg three times a day Pr egabalin (Lyrica) (50mg at bedtime up to 300mg a day) may be tried to help with neuropathic pain symptoms. Analgesics and nonsteroidals can be tried though frequently are of minimal benefit unless there is concomitant arthritis. Tramadol (Ultram) can be useful as it increases serotonin levels and also has analgesic properties. In fact, it has been shown in double blind, placebo controlled randomized studies to be better than placebo. Narcotics are to be avoided as there is evidence they may increase the pain of fibromyalgia. Pramiprexole (Mirapex) a dopamine agonist has also been shown to be effective indouble blind, placebo controlled trials for the treatment of FM pain and is especially useful for patients with restless leg syndrome. LIFESTYLE MODIFICATION: A prescription for aerobic exercise is aguilera to improving functioning in patients with this disease. A variety of approaches have been used, but motivation and consistency are essential. A physical therapist or a medical management trainer can be engaged in this role, but patient motivation and self- sufficiency must be encouraged. Weight training, aerobics, walking, water exercise, home programs and group exercises as well as yoga, patience chi are all effective. Stretching alone however, hasbeen shown to be less effective than placebo. COGNITIVE BEHAVIORAL THERAPY and MINDFULNESS: The final keys to success in treating fibromyalgia arecognitive behavioral therapy and mindfulness. This gets at the mind-set of the patient and encourages them to take charge of their anna. Rather than eliminating pain, cognitive behavioral therapy directs patients towards modalities that they can use to deal with pain and to function in spite of pain. Mindfulness (2.5 hours a week over 8 weeks) was shown in a 2014 Randomized Controlled Trial to reduce stress, sleep disturbance, and symptom severity although it did not alter pain or physical functioning. Exercise and cognitive behavioral therapy consistently rate better in clinical trials than any medicine tested. This has been shown over and over in different patient groups and published in several different specialty journals. Minutes spent today associated with the office visit including during the visit, chart review, and documentation: 60 Erika Swan APRN CC: Brandee Fuchs APRN documented in this encounter Plan of Treatment Not on filedocumented as of this encounter Goals Goal Patient Goal Associated Recent Patient-Stated? Author Type Problems Progress DH Home Medication Patient Yes Irish, Compliance and Facing Enra Costa Action Plan [facility] Note: Formatting of this note might be d ifferent from the original. Reduction in use of SMILEY to 1-2 nebulize r treatments per day. Measured by: Patient report Time frame: 6 months documented as of this encounter Visit Diagnoses Diagnosis Fibromyalgia Mylagia and myositis, unspecified Arthralgia, unspecified joint Fatigue, unspecified type documented in this encounter Care Teams Manager Data Warehousing Relationship Specialty Start Date End Date Brandee Fuchs APRN PCP - General Family Medicine 01/17/19 [address] [place] [address] documented as of this encounter
--- OUTSIDE RECORDS SUMMARY | 2022-07-09 01:14 | XMS_ITS | Encounter Summary ---
:1975 Author Organization [facility] [place] [address] Care Team Providers Name Role Phone DanielBrandee huynh Obdulia GAMBLE Primary Care Provider Reason for Visit Reason Comments IV Medication Venofer 300 mg Encounter Details Date Type Department Care Team Description 07/03/2020 Infusion [facility] [address] [facility] anemia type [place], [place] [phone] Social History Tobacco Use [...] Sign Reading Time Taken Comments Blood Pressure 108/54 07/03/2020 1:12 PM EDT Pulse - - Temperature 36.5 ??C (97.7 ??F) 07/03/2020 1:12 PM EDT Respiratory Rate 18 07/03/2020 1:12 PM EDT Oxygen Saturation 99% 07/03/2020 1:12 PM EDT Inhaled Oxygen Concentration - - Weight - - Height 156.2 cm (5' 1.5) 07/03/2020 1:12 PM EDT Body Mass Index - - documented in this encounter Progress Notes Korin Denise RN - 07/03/2020 1:00 PM EDT INFUSION THERAPY ADMINISTRATION NOTES DIAGNOSIS: Iron Deficiency REASON FOR VISIT: Venofer week 3 of 3 SUBJECTIVE Malu offers no complaints. OBJECTIVE LABS: Ferritin was 11 on 06/11/2020. IV ACCESS: PIV left top of hand REACTIONS (DESCRIPTION, TIME, INTERVENTION AND EFFECTIVENESS) none [...] Dose Rate Site dexamethasone (Decadron) injection Given 07/03/2020 1:30 PM EDT 10 mg 10 mg 10 mg, Intravenous, ONCE, 1 dose, On Rachel 07/03/20 at 1300 iron sucrose (Venofer) 300 mg in Given 07/03/2020 1:50 PM EDT 30 0 mg 76.7 mL/hr sodium chloride 0.9% 115 mL 300 mg, Intravenous, WEEKLY, 1 dose, First dose (after last reorder) on Rachel 07/03/20 at 1300, Administer over 90 Minutes, Patients should be closely monitored for signs of hypersensitivity during and for at least 30 min after each administration. Dose 3 of 3 ondansetron (Zofran) tablet 8 mg Given 07/03/2020 1:30 PM EDT 8 mg 8 mg, Oral, ONCE, 1 dose, On Rachel 07/03/20 at 1300, Routine documented in this encounter Care Teams Decker Operator Relationship Specialty Start Date End Date Brandee Fuchs, MANAGER PERSONNEL SELECTION PCP - General Family Medicine 01/17/19 [address] [place] [address] documented as of this encounter
--- OUTSIDE RECORDS SUMMARY | 2022-07-09 01:14 | XMS_ITS | Encounter Summary ---
:1975 Author Organization [facility] [place] [address] Care Team Providers Name Role Phone Brandee Fuchs MAVIS Primary Care Provider Encounter Details Date Type Department Care Team Description 06/23/2020 Telephone Pulmonology at [facility] [place] [address] Social History Tobacco Use Types Packs/Day Years Used Date Former Smoker Cigarettes 0.5 11 Quit: 01/05/20 03 Smokeless Tobacco: Never Used Alcohol Use Standard Drinks/Week Comments No 0 (1 standard drink = 0.6 oz pure alcoho l) Sex Assigned at Date Recorded Not on file documented as of this encounter Miscellaneous Notes Telephone Encounter - Jaimie Simmons LNA - 06/23/2020 4:30 PM EDT Spoke with pt to schedule PFT and in clinic f/u with Dr. Dubon on 07/04 (per DANNIE). Pt aware date, time,location. documented in this encounter Plan of Treatment Not on filedocumented as of this encounter Goals Goal Patient Goal Associated Recent Patient-Stated? Author Type Problems Progress DH Home Medication Patient Yes Irish, Compliance and Facing Rekha Roman Understanding Action Plan [facility] Note: Formatting of this note might be d ifferent from the original. Reduction in use of SMILEY to 1-2 nebulize r treatments per day. Measured by: Patient report Time frame: 6 months documented as of this encounter Visit Diagnoses Not on filedocumented in this encounter Care Teams Rn Mental Health Relationship Specialty Start Date End Date Brandee Fuchs APRN PCP - General Family Medicine 01/17/19 [address] [place] [address] documented as of this encounter
--- OUTSIDE RECORDS SUMMARY | 2022-07-09 01:14 | XMS_ITS | Encounter Summary ---
:1975 Author Organization [facility] [place] [address] Care Team Providers Name Role Phone Daniellino Brandee Steiner APRN Primary Care Provider Reason for Visit Reason Onset Date Comments Medication Refill 06/17/2020 Encounter Details Date Type Department Care Team Description 06/17/2020 Refill Hematology/Oncology at [facility], Iron deficiency anemia, [facility] MACHINIST TOOL AND DIE unspecified iron [address] deficiency anemia type [place], [place] HEMATOLOGY ONCO LOGY [phone] [place], [place] [phone] (Wo rk) Social History Tobacco Use Types [...] Facing Rekha Roman Understanding Action Plan [facility] Note: Formatting of this note might be d ifferent from the original. Reduction in use of SMILEY to 1-2 nebulize r treatments per day. Measured by: Patient report Time frame: 6 months documented as of this encounter Visit Diagnoses Diagnosis Iron deficiency anemia, unspecified iron deficiency anemia type documented in this encounter Care Teams Acetylene Torch Burner Relationship Specialty Start Date End Date Brandee Fuchs, MACHINIST TOOL AND DIE PCP - General Family Medicine 01/17/19 [address] [place] [address] documented as of this encounter
--- OUTSIDE RECORDS SUMMARY | 2022-07-09 01:14 | XMS_ITS | Encounter Summary ---
:1975 Author Organization [facility] [place] [address] Care Team Providers Name Role Phone Brandee Fuchs APRN Primary Care Provider Encounter Details Date Type Department Care Team Description 08/06/2020 Telephone Pulmonology at [facility] Jaimie Simmons, [facility] [place] [address] Social History Tobacco Use Types Packs/Day [...] Rekha Roman Understanding Action Plan [facility] Note: Formatting of this note might be d ifferent from the original. Reduction in use of SMILEY to 1-2 nebulize r treatments per day. Measured by: Patient report Time frame: 6 months documented as of this encounter Visit Diagnoses Not on filedocumented in this encounter Care Teams Track Layer Head Relationship Specialty Start Date End Date Brandee Fuchs APRN PCP - General Family Medicine 01/17/19 [address] [place], [place] [address] documented as of this encounter
--- OUTSIDE RECORDS SUMMARY | 2022-07-09 01:14 | XMS_ITS | Encounter Summary ---
:1975 Author Organization [facility] [place] [address] Care Team Providers Name Role Phone DanielBrandee huynh Obdulia GAMBLE Primary Care Provider Encounter Details Date Type Department Care Team Description 03/26/2021 Telephone Rheumatology at [facility] [place] [address] Social History Tobacco Use Types Packs/Day Years Used Date Former Smoker Cigarettes 0.5 11 Quit: 01/05/20 03 Smokeless Tobacco: Never Used Alcohol Use Standard Drinks/Week Comments No 0 (1 standard drink = 0.6 oz pure alcoho l) Sex Assigned at Date Recorded Not on file documented as of this encounter Miscellaneous Notes Telephone Encounter - Rosie Rosas - 03/26/2021 2:16 PM EDT VM left with pt to cb and book fuv with Erika Swan Return in about 1 month (around 04/24/2021) for phone call, erika, 60min. documented in this encounter Plan of Treatment Not on filedocumented as of this encounter Goals Goal Patient Goal Associated Recent Patient-Stated? Author Type Problems Progress Home Medication Patient Yes Irish, Compliance and Facing Rekha Roman Understanding Action Plan [facility] Note: Formatting of this note might be d ifferent from the original. Reduction in use of SMILEY to 1-2 nebulize r treatments per day. Measured by: Patient report Time frame: 6 months documented as of this encounter Visit Diagnoses Not on filedocumented in this encounter Care Teams Scrap Metal Collector Relationship Specialty Start Date End Date Brandee Fuchs APRN PCP - General Family Medicine 01/17/19 [address] [place] [address] documented as of this encounter
--- OUTSIDE RECORDS SUMMARY | 2022-07-09 01:14 | XMS_ITS | Encounter Summary ---
:1975 Author Organization [facility] [place] [address] Care Team Providers Name Role Phone Brandee Fuchs Obdulia GAMBLE Primary Care Provider Reason for Visit Reason Comments Medication Management Encounter Details Date Type Department Care Team Description 06/06/2020 Specialty Pharmacy Pharmacy at [facility] [place] [place] Joshua Medication Management [facility] [place] [address] Social History Tobacco Use Types Packs/Day Years Used Date Former Smoker Cigarettes 0.5 11 Quit: 01/05/20 03 Smokeless Tobacco: Never Used Alcohol Use Standard Drinks/Week Comments No 0 (1 standard drink = 0.6 oz pure alcoho l) Sex Assigned at Date Recorded Not on file documented as of this encounter Progress Notes Cammy Lewis RPH - 06/06/2020 1:59 PM EDT Clinical Management Plan: Refill Specialty Pharmacy Consultation; Cammy Lewis [facility] Comprehensive Medication Management (CMM) Malu De is a 44 y.o. (1975) female who was contacted in regard to a specialty medication refill reminder. Spoke with patient regarding Dupixent. A review of the medication therapy was performed. The medication was Refilled as scheduled, and all medication related questions and concernswere addressed. The specialty pharmacy staff will follow up with the patient 5-7 days prior to next refill. Was a change made to the Care Plan: no Assessment and Recommendations: Title Type of Medication Management: chronic disease management, targeted medication review Referred By: provider Recipient: beneficiary Provider: plan sponsor pharmacist Visit Type: [facility] Follow[place] Method of Contact: by telephone Cognitive Ability: good Cognitive Impairment Status Verified this Year: no Allergies and Drug intolerance: Allergies Allergen Reactions ??? Acetaminophen Mouth blisters ??? Amitriptyline Anxiety ??? Cyclobenzaprine Other (See Comments) Small blisters ??? Cymbalta [Duloxetine] Anxiety ??? Dulera [Mometasone-Formoterol] Other (See Comments) Mental alterations ??? Gabapentin Other (See Comments) [place] like body was shaking, nerves vibrating, hands went numb ??? Indomethacin ??? Tramadol Other (See Comments) Anxiety, foggy head, unaware ??? Vicodin [Hydrocodone-Acetaminophen] Mouth blisters Medication Reconciliation Discrepancies (compared to [facility] med list) -no New medications: no New medical conditions: no New allergies: no Adherence: Medication Adherence Patient reported X missed doses in the last month: 0 Any gaps in refill history greater than 2 weeks in the last 3 months: no Demonstrates understanding of importance of adherence: yes Informant: patient Reliability of informant: reliable Provider-estimated medication adherence level: 90-100% Reasons for non-adherence: no problems identified Adherence tools used: calendar Support network for adherence: family member Confirmed plan for next specialty medication refill: delivery by pharmacy Refills needed for supportive medications: not needed Are you experiencing any side effects from your medications? yes patient experienced a rash on her knees. She applied rubbing alcohol on the affected areas and they resolved Pt understands no changes to current drug regimen were made at the appointment and that [facility] is providing recommendations (summary located at top of note) for provider review and follow up. Cammy Lewis RPH 06/06/20 2:00 PM Nuha Dubon MD - 06/06/2020 1:59 PM EDT Tried reaching Mrs. De to discuss the rash in advance of her next dupixent dose, but have not reached her. I left a message asking her to call to discuss. If rash resolved quickly with rubbing alcohol then likely safe to continue dupixent; this is an odd response for a rash. Nuha Dubon MD documented in this encounter Plan of Treatment Not on filedocumented as of this encounter Goals Goal Patient Goal Associated Recent Patient-Stated? Author Type Problems Progress DH Home Medication Patient Yes Irish, Compliance and Facing Rekha Roman Understanding Action Plan [facility] Note: Formatting of this note might be d ifferent from the original. Reduction in use of SMILEY to 1-2 nebulize r treatments per day. Measured by: Patient report Time frame: 6 months documented as of this encounter Visit Diagnoses Not on filedocumented in this encounter Care Teams Security Officer Relationship Specialty Start Date End Date Brandee Fuchs, TERRAZZO INSTALLER PCP - General Family Medicine 01/17/19 [address] [place] [address] documented as of this encounter
--- OUTSIDE RECORDS SUMMARY | 2022-07-09 01:14 | XMS_ITS | Encounter Summary ---
:1975 Author Organization [facility] [place] [address] Care Team Providers Name Role Phone Brandee Fuchs APRN Primary Care Provider Encounter Details Date Type Department Care Team Description 06/17/2020 Orders Only Hematology/Oncology [facility] Ir on deficiency at [facility] AMAVIS anemia, unspecified [address] iron deficiency anemia [place], [place] HEMATOLOGY ONCO LOGY type [id number] [place], [place] [phone] (Wo rk) Social History Tobacco Use Types [...] Medication Patient Yes Irish, Manny and Facing Erna Costa Action Plan [facility] Note: Formatting of this note might be d ifferent from the original. Reduction in use of SMILEY to 1-2 nebulize r treatments per day. Measured by: Patient report Time frame: 6 months documented as of this encounter Visit Diagnoses Diagnosis Iron deficiency anemia, unspecified iron deficiency anemia type documented in this encounter Care Teams Rabbet Operator Relationship Specialty Start Date End Date Brandee Fuchs, MAVIS PCP - General Family Medicine 01/17/19 [address] [place] [address] documented as of this encounter
--- OUTSIDE RECORDS SUMMARY | 2022-07-09 01:15 | XMS_ITS | Encounter Summary ---
:1975 Author Organization [facility] [place] [address] Care Team Providers Name Role Phone Daniellino Brandee Steiner APRN Primary Care Provider Encounter Details Date Type Department Care Team Description 04/17/2020 Telephone Sleep Center at [facility] Wendy Webb [address] [place] [address] Social History Tobacco Use Types Packs/Day Years Used Date Former Smoker Cigarettes 0.5 11 Quit: 01/05/20 03 Smokeless Tobacco: Never Used Alcohol Use Standard Drinks/Week Comments No 0 (1 standard drink = 0.6 oz pure alcoho l) Sex Assigned at Date Recorded Not on file documented as of this encounter Miscellaneous Notes Telephone Encounter - Wendy Webb - 04/17/2020 11:25 AM EDT I called pt and left a message to call and reschedule her HST due to a technical failure. documented in this encounter Plan of Treatment Not on filedocumented as of this encounter Goals Goal Patient Goal Associated Recent Patient-Stated? Author Type Problems Progress DH Home Medication Patient Yes Irish, Compliance and Facing Rekha Roman Understanding Action Plan [facility] Note: Formatting of this note might be d ifferent from the original. Reduction in use of SMILEY to 1-2 nebulize r treatments per day. Measured by: Patient report Time frame: 6 months documented as of this encounter Visit Diagnoses Not on filedocumented in this encounter Care Teams Right Of Way Cutter Relationship Specialty Start Date End Date Brandee Fuchs APRN PCP - General Family Medicine 01/17/19 [address] [place] [address] documented as of this encounter
--- OUTSIDE RECORDS SUMMARY | 2022-07-09 01:15 | XMS_ITS | Encounter Summary ---
:1975 Author Organization [facility] [place] [address] Care Team Providers Name Role Phone Brandee Fuchs APRN Primary Care Provider Encounter Details Date Type Department Care Team Description 01/09/2020 Telephone Hematology/Oncology at [facility] Bennie Webb [address] [place] [phone] Social History Tobacco Use Types Packs/Day Years Used Date Former Smoker Cigarettes 0.5 11 Quit: 01/05/20 03 Smokeless Tobacco: Never Used Alcohol Use Standard Drinks/Week Comments No 0 (1 standard drink = 0.6 oz pure alcoho l) Sex Assigned at Date Recorded Not on file documented as of this encounter Miscellaneous Notes Telephone Encounter - Bennie Webb - 01/09/2020 11:29 AM EDT Malu returned our phone call to pre-screen her for her appointment with [facility] tomorrow 01/09. She informed me that she was tested for COVID-19 today by her primary and is self-quarantined until the results are back. I informed her that I would pass the message along to the provider and nurses and we would call her back with a new appointment. documented in this encounter Plan of Treatment Not on filedocumented as of this encounter Visit Diagnoses Not on filedocumented in this encounter Care Teams Fancy Packer Relationship Specialty Start Date End Date Brandee Fuchs, MAVIS PCP - General Family Medicine 01/17/19 [address] [place] [address] documented as of this encounter
--- OUTSIDE RECORDS SUMMARY | 2022-07-09 01:15 | XMS_ITS | Encounter Summary ---
:1975 Author Organization [facility] [place] [address] Care Team Providers Name Role Phone DanielBrandee huynh Obdulia GAMBLE Primary Care Provider Reason for Visit Reason Onset Date Comments Other 02/07/2020 social work assessme nt Encounter Details Date Type Department Care Team Description 02/07/2020 Telephone Hematology/Oncology at Jamee Kovacs, Ot her (social work [facility] assessment) [address] OFFICE OF CARE [place], [place] MANAGEMENT [phone] Social History Tobacco Use Types Packs/Day Years Used Date Former Smoker Cigarettes 0.5 11 Quit: 01/05/20 03 Smokeless Tobacco: Never Used Alcohol Use Standard Drinks/Week Comments No 0 (1 standard drink = 0.6 oz pure alcoho l) Sex Assigned at Date Recorded Not on file documented as of this encounter Miscellaneous Notes Telephone Encounter - RamawilJamee PRESS TOOL MAKER - 02/07/2020 10:50 AM EDT Reason for Referral: Brief assessment of social and emotional needs. TC with pt during her infusion visit. Social Supports: Pt indicated her primary support is her 16 year old son who lives with her. Her daughter was killed in a car accident last month. She was not specific about her other supports other than there were people that are looking out for her. Living Situation/Daily Activities/Transportation: Pt lives in [place]. She and her son manage their daily chores and activities. She does not expect any issues with transportation. Work/Finances/Insurance: Pt does not work. She indicated she is able to manage her financial obligations. She has Medicaid for insurance. Advance Directives: Pt indicated she had been working on her advance directive and expected her daughter to be her agent. She needs to consider who could take on that role now. Offered assistance with the process if pt interested. Utilization of Community Resources: Medicaid; food assistance/[address] [place] [address] Adjustment to Illness/Mental Health Issues: Pt shared her daughters recent . She shared how challenging this all has been. It has been more challenging because she does not feel well. Pt indicatedher son is managing as best he can with everything and is finding his remote education challenging. O ffered support. Identified Needs: Pt did not identify any specific needs at this time. Referrals: None at this time. Plan: Informed pt of PRESS TOOL MAKER availability and contact information as working remotely. Will follow for support and resources. documented in this encounter Plan of Treatment Not on filedocumented as of this encounter Visit Diagnoses Not on filedocumented in this encounter Care Teams Nuclear Engineering Technician Relationship Specialty Start Date End Date Brandee Fuchs, SMALL ENGINE MECHANIC PCP - General Family Medicine 01/17/19 [address] [place] [address] documented as of this encounter
--- OUTSIDE RECORDS SUMMARY | 2022-07-09 01:15 | XMS_ITS | Encounter Summary ---
:1975 Author Organization [facility] [address] Care Team Providers Name Role Phone Brandee Fuchs APRN Primary Care Provider Encounter Details Date Type Department Care Team Description 02/21/2020 Orders Only Hematology and Oncology at Ashok Bojorquez MD [facility] Kilo hurt HEMATOLOGY/[place] [address] DEPT. [phone] [place], [place] [address] (Wo rk) Social History Tobacco [...] on filedocumented in this encounter Care Teams Tattooer Relationship Specialty Start Date End Date Brandee Fuchs APRN PCP - General Family Medicine 01/17/19 [address] [place], [place] [address] documented as of this encounter
--- OUTSIDE RECORDS SUMMARY | 2022-07-09 01:15 | XMS_ITS | Encounter Summary ---
:1975 Author Organization [place] [address] Care Team Providers Name Role Phone DanielBrandee huynh Obdulia GAMBLE Primary Care Provider Encounter Details Date Type Department Care Team Description 04/28/2020 Telephone Rheumatology at [facility] Bertha Toussaint, [facility] [place] [address] Social History Tobacco Use Types Packs/Day Years Used Date Former Smoker Cigarettes 0.5 11 Quit: 01/05/20 03 Smokeless Tobacco: Never Used Alcohol Use Standard Drinks/Week Comments No 0 (1 standard drink = 0.6 oz pure alcoho l) Sex Assigned at Date Recorded Not on file documented as of this encounter Miscellaneous Notes Telephone Encounter - Ber[facility]oussaint [facility] - 04/28/2020 2:32 PM EDT CYNDEE Weapons Designer Pre-Telemedicine Phone Note [] Patient not reached [x] Patient reached and the following information was reviewed/obtained per protocol: [x] Confirmed patient name and date of [] Confirmed telemedicine akbar (Mintigodyo and Virtual Visit) is downloaded and functioning [] Confirmed location of patient - TeleVisit is taking place in [] [place] [] [place] [] If not on [facility], working on signing up for [facility] [x] Confirmed has completed any pre-visit questionnaires [] If has not received required pre-visit questionnaires, send via [facility] [x] Reviewed patient medications ??? dupilumab (Dupixent) 300 mg/2 mL Syringe ??? predniSONE (Deltasone) 20 mg Tablet ??? dexamethasone (Decadron) 4 mg Tablet ??? ipratropium-albuteroL (DUONEB) 0.5 mg-3 mg(2.5 mg base)/3 mL Solution for Nebulization ??? polyethylene glycol (Miralax) 17 gram/dose Powder ??? cholecalciferol, Vitamin D3, 1,000 unit Capsule ??? ondansetron (ZOFRAN) 4 mg Tablet ??? multivitamin (THERAGRAN) Tablet ??? folic acid (FOLVITE) 1 mg Tablet ??? ferrous sulfate 325 mg (65 mg iron) Tablet ??? albuterol (PROVENTIL) 2.5 mg /3 mL (0.083 %) Solution for Nebulization ??? montelukast (SINGULAIR) 10 mg Tablet ??? omeprazole (PRILOSEC) 40 mg Capsule, Delayed Release(E.C.) ??? BREO ELLIPTA 200-25 mcg/dose Disk with Device ??? SPIRIVA RESPIMAT 1.25 mcg/actuation Mist ??? triamcinolone (NASACORT OR NASACORT OTC) 55 mcg Aerosol, Cross Anchor [x] Documented self-reported vitals: [x] Weight: 197lb [x] Height 5'0 [] pulse recorded: [] Other information or concerns documented in this encounter Plan of Treatment [...] on filedocumented in this encounter Care Teams Parker Relationship Specialty Start Date End Date Brandee Fuchs, CASE MANAGEMENT ASSOCIATE PCP - General Family Medicine 01/17/19 [address] [place] [address] documented as of this encounter
--- OUTSIDE RECORDS SUMMARY | 2022-07-09 01:15 | XMS_ITS | Encounter Summary ---
:1975 Author Organization [facility] [place] [address] Care Team Providers Name Role Phone DanielBrandee huynh Obdulia GAMBLE Primary Care Provider Reason for Visit Reason Onset Date Comments Nausea 06/26/2019 with oral iron Encounter Details Date Type Department Care Team Description 06/26/2019 Telephone Hematology/Oncology at [facility] (with oral iron ) [facility] Korin Roman RN [address] [place] [phone] Social History Tobacco Use Types Packs/Day Years Used Date Former Smoker Cigarettes Quit: 01/05/20 03 Smokeless Tobacco: Never Used Alcohol Use Standard Drinks/Week Comments No 0 (1 standard drink = 0.6 oz pure alcoho l) Sex Assigned at Date Recorded Not on file documented as of this encounter Miscellaneous Notes Telephone Encounter - Korin Denise RN - 06/26/2019 1:39 PM EDT Called and spoke with Malu De regarding plan to take zofran prior to oral iron. She is awareto take it 1 hour prior to oral iron and reviewed side effects of constipation. She is in agreement with plan and advised to call and let us know how she tolerates this. Telephone Encounter - Korin Denise RN - 06/26/2019 12:15 PM EDT Malu De called to report she saw Dr Hernandez for her LATHA on 05/31/19 and started on oral iron supplementation, taking it every other as day as prescribed. About an hour after she takes medicationshe because nauseous, vomits, and also reports diarrhea at times. She has tried taking it at different times during the day, taking it with or without food and the vomiting approximately 1 hour after taking it persists. She stopped taking it altogether last Tuesday06/19/19. She states I must have been absorbing it now [taking it every other day] because I'm reacting the same way I did when I received it intravenously. When she has taken oral iron the past on a daily basis she did not experience these side effects. She has a FUV with Dr Hernandez 08/02/19. She mentioned that they discussed trying IVIron again, along with premedication if her iron counts did not improve. She has not tried any antiemetics prior to taking oral iron. Will review with Dr Hernandez and call Malu with plan. documented in this encounter Plan of Treatment Not on filedocumented as of this encounter Visit Diagnoses Not on filedocumented in this encounter Care Teams Tread Cutter Relationship Specialty Start Date End Date Brandee Fuchs APRN PCP - General Family Medicine 01/17/19 [address] [place] [address] documented as of this encounter
--- OUTSIDE RECORDS SUMMARY | 2022-07-09 01:15 | XMS_ITS | Encounter Summary ---
:1975 Author Organization [facility] [place] [address] Care Team Providers Name Role Phone DanielBrandee huynh Obdulia GAMBLE Primary Care Provider Encounter Details Date Type Department Care Team Description 04/24/2020 Telephone Pain and Spine Cente r at [facility] [place] [phone] Social History Tobacco Use Types Packs/Day Years Used Date Former Smoker Cigarettes 0.5 11 Quit: 01/05/20 03 Smokeless Tobacco: Never Used Alcohol Use Standard Drinks/Week Comments No 0 (1 standard drink = 0.6 oz pure alcoho l) Sex Assigned at Date Recorded Not on file documented as of this encounter Miscellaneous Notes Telephone Encounter - Alyssa Barnhart - 04/24/2020 9:20 AM EDT LVM to schedule weekly 30 min TOV apts w/Jodi until end may per DMP. See previous notes. documented in this encounter Plan of Treatment [...] on filedocumented in this encounter Care Teams Crude Oil Treater Relationship Specialty Start Date End Date Brandee Fuchs APRN PCP - General Family Medicine 01/17/19 [address] [place] [address] documented as of this encounter
--- OUTSIDE RECORDS SUMMARY | 2022-07-09 01:15 | XMS_ITS | Encounter Summary ---
:1975 Author Organization [facility] [place] [address] Care Team Providers Name Role Phone Brandee Fuchs APRN Primary Care Provider Encounter Details Date Type Department Care Team Description 10/15/2019 Telephone [place]ology [place] [facility] [place] [phone] Social History Tobacco Use Types Packs/Day [...] on filedocumented in this encounter Care Teams Bodily Injury Adjuster Relationship Specialty Start Date End Date Brandee Fuchs APRN PCP - General Family Medicine 01/17/19 [address] [place] [address] documented as of this encounter
--- OUTSIDE RECORDS SUMMARY | 2022-07-09 01:15 | XMS_ITS | Encounter Summary ---
:1975 Author Organization [facility] [place] [address] Care Team Providers Name Role Phone DanielBrandee huynh Obdulia GAMBLE Primary Care Provider Encounter Details Date Type Department Care Team Description 03/24/2020 Office Visit Pain and Spine Center Jodi Mckeon, Robert ychological factor at [facility] PsyD affecting physical [facility] Medical condition [facility] [address], [place], [place] [phone] Social History Tobacco Use Types Packs/Day Years Used Date Former Smoker Cigarettes 0.5 11 Quit: 01/05/20 03 Smokeless Tobacco: Never Used Alcohol Use Standard Drinks/Week Comments No 0 (1 standard drink = 0.6 oz pure alcoho l) Sex Assigned at Date Recorded Not on file documented as of this encounter Progress Notes Jodi Mckeon PsyD - 03/24/2020 2:30 PM EDT Behavioral Medicine - [facility] Follow up Name: Malu De Patient's age: 44 y.o. Date: 03/24/2020 Duration of appt: 60 min PP; c/o multisite diffuse pain secondary to comorbid Sofy-Danlos syndrome and fibromyalgia, (note that problem list only specifies asthma, and it is not clear what type of EDS Ms. De has been dx'dwith). SUMMARY: 44 y.o. year old single white female from [facility] with hx of Ehler's Danlos syndrome and [...] screened for suicidal ideation, which she denied. ADDITIONAL PAIN ASSESSMENT COPING SKILLS Denies that she is depressed, but continues to struggle with grief. Could not specifically idnetify coping skills, stating that she just isn't really sure how she gets through the day, She focuses on doing the things that need to get one. States that she tries to focus on her son, stating there;s nobody else to do anything, She has been focused on putting together the , so they can do somehting for that, Could also not identify pain coping skills. CURRENT HEALTH BEHAVIORS and IMPACT OF PAIN Sleep: States that she doesn't really sleep very much. When she tries to sleep, she will reposition about every 15 minutes. She sleeps for short intervals of time, awakens by pain when she has been in one position. States that she doesn't fall asleep until 4-5 in the morning, but goes to bed at about 10-11. She thinks that she eventually falls asleep from exhaustion. Thinks that she only gets 2-3 hours of sleep per day, thinks that this has been the case for 5-6 years. She will dose somewhat throughthe night. Typically gets out of bed around 5:30 or 6 to bring her roommate to work. Diet/Appetite: States that she eats on and off, typically will eat dinner. She is vegetarian, She enjoys vegetables, salads, tofu, rice. She sometimes has fried food as a treat. Exercise: Very limited exercise, she does her physical therapy exercise, mostly stretching with a band. She is supposed to be hearing from her PT today because they have reopened. 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 They have stopped doing EDS testing here because of changes to policy. Her new precision aircraft structure assembler thinks that she has hypermobility, but is not sure about precision aircraft structure assembler. States that she has some joints/bones that fall out of place. She was told that her joints wear down and start falling out of place. Stated that her joints will stretch. States that previous PT has been very slow, still just doing light band exercises. Tobacco Use: Denied Perceived Stress level: Very high, her daughter was recently killed in MVA. Other health concerns: Asthma / breathing problems. Continues to be horrible,' noted that her asthma and pain play off each other - her pain can cause an asthma attack, when she gets an asthma attack (due to allergies), it increases her pain. SUBSTANCE ABUSE HISTORY Alcohol: Does not drink, this has been the case for about 20 years. Cannabis: Denied, has not tried since her 20s. Rheumatology would like her to consider because of her issues with pain medications. She doesn't want to try additional pain medication. She does not takethe LDN, because her precision aircraft structure assembler said that it was not effective with her other patients. Cocaine: Denied Heroin: Denied Other: Denied Hx of Addiction Tx: Denied PSYCHIATRIC HISTORY See Intake. The roommate is a previous partner, and she has been trying to support him so he can take care of himself. She does not see him very much. EDUCATION PROVIDED Patient provided education on biopsychosocial model and comprehensive approach to chronic pain management. Discussed that treatment plan would be based on patient-driven goals, and would include pain neuroscience education and a cognitive-behavioral approach to learning pain management techniques, reduce fear avoidance, and address possible catastrophic or anxious thoughts related to pain. Discussed the different roles of a pain psychologist versus a long-term mental health provider, while reassuring patient that some comorbid mental health conditions can also be managed by skills learned through behavioral pain management. MOTIVATION FOR BEHAVIORAL PAIN MANAGEMENT What is it that you would like to change about what you are doing now to manage your pain? I always kind of hope that it was going to get better. She states that she knew there was 'somethingmore' going on than just her fibromyalgia. She has become more disabled over the years and she has hoped for years that there would be some sort of treatment, but that hasn't happened yet. Acknowledgesthat her fibro is bad, joint arthralgia, but hasn't found anything so far that helps. The fact that you are here suggests to me that you are interested in seeing things change. How wouldyou like your life to be different despite the pain? I never thought my life was bad - states that she hasn't thought about this, How would you define treatment success? What would be different in your life? States that she would seem some sort of improvement in day to day functioning or quality of life. In her quality of life, forgetfulness, fibro fog, Discussed rationale for treatment, brief nature of treatment, and importance of commitment of time and effort from patient to practice and learn the techniques covered. PLAN: Malu will be scheduled for two appointments: - Please schedule for a 30minute telephone appt for next week. - Please schedule a 60 m follow up appointment in person on April 29 Next appt focused on PHI and treatment planning. She has been provided both and will complete PHI prior to her next appt. documented in this encounter Plan of Treatment Not on filedocumented as of this encounter Visit Diagnoses Diagnosis Psychological factor affecting physical condition Psychic factors associated with diseases classified elsewhere documented in this encounter Care Teams Sap Business Objects Developer Relationship Specialty Start Date End Date Brandee Fuchs, DATAPOWER DEVELOPER PCP - General Family Medicine 01/17/19 [address] [place] [address] documented as of this encounter
--- OUTSIDE RECORDS SUMMARY | 2022-07-09 01:15 | XMS_ITS | Encounter Summary ---
:1975 Author Organization [facility] [place] [address] Care Team Providers Name Role Phone Brandee Fuchs APRN Primary Care Provider Encounter Details Date Type Department Care Team Description 03/17/2020 Telephone Pain and Spine [facility] lakhani at [facility] [place] [phone] Social History Tobacco Use Types Packs/Day Years Used Date Former Smoker Cigarettes 0.5 11 Quit: 01/05/20 03 Smokeless Tobacco: Never Used Alcohol Use Standard Drinks/Week Comments No 0 (1 standard drink = 0.6 oz pure alcoho l) Sex Assigned at Date Recorded Not on file documented as of this encounter Miscellaneous Notes Telephone Encounter - Liliana Thomas - 03/17/2020 9:16 AM EDT lvm to schedule follow up in clinic on 03/24 @2:30 per DMP documented in this encounter Plan of Treatment Not on filedocumented as of this encounter Visit Diagnoses Not on filedocumented in this encounter Care Teams Tray Line Worker Relationship Specialty Start Date End Date Brandee Fuchs APRN PCP - General Family Medicine 01/17/19 [address] [place], [place] [address] documented as of this encounter
--- OUTSIDE RECORDS SUMMARY | 2022-07-09 01:15 | XMS_ITS | Encounter Summary ---
:1975 Author Organization [facility] [place] [address] Care Team Providers Name Role Phone DanielBrandee huynh Obdulia GAMBLE Primary Care Provider Reason for Visit Reason Comments IV Medication Venofer Encounter Details Date Type Department Care Team Description 02/21/2020 [facility]fusion [facility] [address] [facility] anemia type [place], [place] [phone] Social History Tobacco Use [...] Sign Reading Time Taken Comments Blood Pressure 112/72 02/21/2020 8:51 AM EDT Pulse 82 02/21/2020 8:51 AM EDT Temperature 36.5 ??C (97.7 ??F) 02/21/2020 8:51 AM EDT Respiratory Rate - - Oxygen Saturation 98% 02/21/2020 8:51 AM EDT Inhaled Oxygen Concentration - - Weight 89.9 kg (198 lb 3.1 oz) 02/21/2020 8:51 AM EDT Height 154.9 cm (5' 0.98) 02/21/2020 8:51 AM EDT Body Mass Index 37.47 02/21/2020 8:51 AM EDT documented in this encounter Progress Notes Milla Griffin RN - 02/21/2020 8:30 AM EDT INFUSION THERAPY ADMINISTRATION NOTES DIAGNOSIS: Iron Deficiency REASON FOR VISIT: Venofer SUBJECTIVE Malu De offers no complaints. States she had nausea for about 4 days after last venofer. Dr Hernandez made aware and script called to pharmacy for dexamethasone daily for 3 days following each venofer infusion. Premeds given as ordered with good effect OBJECTIVE LAB DATA: WNL Pre administration: Chemotherapy orders independently verified for drug name, route, and dosage per patient's height, weight and BSA by Freda TRAN and Nathaly. REACTIONS (DESCRIPTION, TIME, INTERVENTION AND EFFECTIVENESS) none . ASSESSMENT Malu De was awake, alert and tolerated treatment well. Patient remained in clinic for 30 min post infusion to monitor for reactions. PLAN Return to clinic next week for next iron infusion documented in this encounter Plan of Treatment Not on filedocumented as of this encounter Visit Diagnoses Diagnosis Iron deficiency anemia, unspecified iron deficiency anemia type documented in this encounter Administered Medications Inactive Administered Medications - up to 3 most recent administrations Medication Order MAR Action Action Date Dose Rate Site dexamethasone (DECADRON) injection Given 02/21/2020 10:00 AM EDT 10 mg 10 mg 10 mg, Intravenous, ONCE, 1 dose, On Rachel 02/21/20 at 0900 iron sucrose (Venofer) 300 mg in New Bag 02/21/2020 10:44 AM E DT 300 mg 76.7 mL/hr sodium chloride 0.9% 115 mL 300 mg, Intravenous, ONCE, 1 dose, On Rachel 02/21/20 at 0900, Administer over 90 Minutes, Week 2 Infusion, Outpatient Transfusion ondansetron (Zofran) tablet 8 mg Given 02/21/2020 9:42 AM EDT 8 mg 8 mg, Oral, ONCE, 1 dose, On Rachel 02/21/20 at 0900, Routine documented in this encounter Care Teams Follow Up Clerk Relationship Specialty Start Date End Date Brandee Fuchs APRN PCP - General Family Medicine 01/17/19 [address] [place] [address] documented as of this encounter
--- OUTSIDE RECORDS SUMMARY | 2022-07-09 01:15 | XMS_ITS | Encounter Summary ---
:1975 Author Organization [facility] [place] [address] Care Team Providers Name Role Phone Brandee Fuchs APRN Primary Care Provider Encounter Details Date Type Department Care Team Description 02/13/2020 Telephone Hematology/Oncology at [facility] Alyssa Darling [address] [phone] Social History Tobacco Use [...] on filedocumented in this encounter Care Teams Electrostatic Painter Relationship Specialty Start Date End Date Brandee Fuchs APRN PCP - General Family Medicine 01/17/19 [address] [place], [place] [address] documented as of this encounter
--- OUTSIDE RECORDS SUMMARY | 2022-07-09 01:15 | XMS_ITS | Encounter Summary ---
:1975 Author Organization [facility] Address [address] [place] [address] Care Team Providers Name Role Phone Brandee Fuchs APRN Primary Care Provider Encounter Details Date Type Department Care Team Description 02/05/2020 Orders Only Hematology and Ashok Hernandez M D Iron deficiency Oncology at [facility] anemia, unspecified [facility] DR iron deficiency anemia Drive HEMATOLOGY/[place] [phone] Y DEPT. [phone] [place], [place] [address] Social History Tobacco Use Types [...] type documented in this encounter Care Teams Dairy Cattle Farmer Relationship Specialty Start Date End Date Brandee Fuchs APRN PCP - General Family Medicine 01/17/19 [address] [place] [address] documented as of this encounter
--- OUTSIDE RECORDS SUMMARY | 2022-07-09 01:15 | XMS_ITS | Encounter Summary ---
:1975 Author Organization [facility] Address [address] [place] [address] Care Team Providers Name Role Phone Brandee Fuchs MAIVS Primary Care Provider Encounter Details Date Type Department Care Team Description 02/07/2020 Office Visit Hematology/Oncology Maggi Hernandez MD Iron deficiency at [facility] anemia, unspecified [address] iron deficiency anemia [place], [place] HEMATOLOGY/ONCOLOG type [id number] Y DEPT. [phone] [place], [place] [address] Social History Tobacco Use Types [...] Sign Reading Time Taken Comments Blood Pressure 110/69 02/07/2020 8:56 AM EDT Pulse 81 02/07/2020 8:56 AM EDT Temperature 36.4 ??C (97.5 ??F) 02/07/2020 8:56 AM EDT Respiratory Rate 16 02/07/2020 8:56 AM EDT Oxygen Saturation 98% 02/07/2020 8:56 AM EDT Inhaled Oxygen Concentration - - Weight 91.2 kg (201 lb) 02/07/2020 8:56 AM EDT Height 154.9 cm (5' 0.98) 02/07/2020 8:56 AM EDT yeni subramanian Body Mass Index 38 02/07/2020 8:56 AM EDT documented in this encounter Progress Notes Ashok Hernandez MD - 02/07/2020 9:00 AM EDT The patient is a 44-year-old female who was referred back to the hematology clinic in [facility] by her primary care doctor for because of recurrent iron deficiency. A few years ago she was followed by Dr. Mccollum and received some IV iron. She did not tolerate it very well. I saw her about a yearago when she was maintaining her hemoglobin and iron stores on oral iron. Over the last 6 months or so she has had more trouble with the oral iron. It makes her feel poorly when she takes that. Her primary care doctor check labs and she was mildly anemic with a ferritin downto single digits again. She is here to discuss resuming intravenous iron. Unfortunately her daughter a few weeks back with an automobile accident. The patient denies any bleeding. Past Medical History: Diagnosis Date ??? Asthma ??? Chronic pain ??? Fatigue ??? Fibromyalgia ??? GERD (gastroesophageal reflux disease) ??? GERD (gastroesophageal reflux disease) Family History: Unknown Social History: Has a partner 2 children - in good health Not working due to health issues No etoh No smoking Social History Socioeconomic History ??? Marital status: Single Spouse name: Not on file ??? Number of children: Not on file ??? Years of education: Not on file ??? Highest education level: Not on file Occupational History ??? Not on file Social Needs ??? Financial resource strain: Not on file ??? Food insecurity Worry: Not on file Inability: Not on file ??? Transportation needs Medical: Not on file Non-medical: Not on file Tobacco Use ??? Smoking status: Former Smoker Packs/day: 0.50 Years: 11.00 Pack years: 5.50 Types: Cigarettes Last attempt to quit: 01/04/2003 Years since quittin.1 ??? Smokeless tobacco: Never Used Substance and Sexual Activity ??? Alcohol use: No ??? Drug use: No ??? Sexual activity: Not on file Lifestyle ??? Physical activity Days per week: Not on file Minutes per session: Not on file ??? Stress: Not on file Relationships ??? Social connections Talks on phone: Not on file Gets together: Not on file Attends hindu service: Not on file Active member of club or organization: Not on file Attends meetings of clubs or organizations: Not on file Relationship status: Not on file ??? Intimate partner violence Fear of current or ex partner: Not on file Emotionally abused: Not on file Physically abused: Not on file Forced sexual activity: Not on file Other Topics Concern ??? Not on file Social History Narrative ??? Not on file Allergies: Allergies Allergen Reactions ??? Acetaminophen Mouth blisters ??? Amitriptyline Anxiety ??? Cyclobenzaprine Other (See Comments) Small blisters ??? Cymbalta [Duloxetine] Anxiety ??? Dulera [Mometasone-Formoterol] Other (See Comments) Mental alterations ??? Gabapentin Other (See Comments) Wood like body was shaking, nerves vibrating, hands went numb ??? Indomethacin ??? Tramadol Other (See Comments) Anxiety, foggy head, unaware ??? Vicodin [Hydrocodone-Acetaminophen] Mouth blisters Medications: Current Outpatient Medications Medication Sig Dispense Refill ??? ipratropium-albuteroL (DUONEB) 0.5 mg-3 mg(2.5 mg base)/3 mL Solution for Nebulization Take 3 mLs by nebulization every 6 hours as needed. ??? polyethylene glycol (Miralax) 17 gram/dose Powder as needed. ??? cholecalciferol, Vitamin D3, 1,000 [...] Take 1 mg by mouth daily. ??? ferrous sulfate 325 mg (65 mg iron) Tablet Take 1 tablet by mouth 2 times daily (after meals). (Patient taking differently: Take 325 mg by mouth. Takes 1 tab every other day) 180 tablet 3 ??? albuterol (PROVENTIL) 2.5 mg /3 mL [...] (NASACORT OR NASACORT OTC) 55 mcg Aerosol, Odd 2 sprays by Nasal route daily. No current facility-administered medications for this visit. Review of Systems Review of Systems - History obtained from the patient General ROS: positive for - fatigue Psychological ROS: negative Ophthalmic ROS: negative ENT ROS: negative Allergy and Immunology ROS: negative Hematological and Lymphatic ROS: positive for fatigue Endocrine ROS: negative Respiratory ROS: no cough, shortness of breath, or wheezing Cardiovascular ROS: no chest pain or dyspnea on exertion Gastrointestinal ROS: negative Genito-Urinary ROS: no dysuria, trouble voiding, or hematuria Musculoskeletal ROS: positive for - joint pain Neurological ROS: no TIA or stroke symptoms Dermatological ROS: negative Physical Exam BP 110/69 (Patient Position: Sitting) Pulse 81 Temp 36.4 ??C (97.5 ??F) (Temporal) Resp 16 Ht 154.9 cm (5' 0.98) Comment: copied Wt 91.2 kg (201 lb) SpO2 98% BMI 38.00 kg/m?? General Appearance: Alert, cooperative, no distress, appears stated age Head: Normocephalic, without obvious abnormality, atraumatic Eyes: PERRL, conjunctiva/corneas clear, Abdomen: Soft, non-tender, bowel sounds active all four quadrants, no masses, no organomegaly Extremities: no edema Skin: no rashes Neurologic: Normal Hemoglobin 10.5 Ferritin 4 Assessment and Plan Malu De is a 44 y.o. female with iron deficiency anemia. She had clear iron deficiency a couple years ago which completely resolved with intravenous iron. Again she is iron deficient. This has occurred despite our oral iron strategy. I did recommend that we resume intravenous iron. We talked about using Venofer at 300 mg weekly for 3 weeks. I also recommended premedications with Zofran and dexamethasone at 10 mg intravenously. We talked about these agents and she is willing to proceed. We will give her her first dose today. She will return in 1 week for her next dose. If she toleratesthen we will complete all 3 doses. If she does not I may consider switching to Feraheme which can bebetter tolerated in some patients. If she ca get 900 mg of iron into her I will check her again in about 3 to 4 months with a CBC and aferritin. She is likely to need intermittent intravenous iron because of losses. Since she does not have menstrual losses it may be reasonable to consider repeating a GI work-up. I will defer that to her primary care doctor. documented in this encounter Plan of Treatment Not on filedocumented as of this encounter Visit Diagnoses Diagnosis Iron deficiency anemia, unspecified iron deficiency anemia type documented in this encounter Care Teams Mangle Tender Cloth Relationship Specialty Start Date End Date Brandee Fuchs, MAVIS PCP - General Family Medicine 01/17/[address] [place] [address] documented as of this encounter
--- OUTSIDE RECORDS SUMMARY | 2022-07-09 01:15 | XMS_ITS | Encounter Summary ---
:1975 Author Organization [facility] [place] [address] Care Team Providers Name Role Phone Daniellino Brandee Lino GAMBLE Primary Care Provider Reason for Visit Reason Comments Back Pain Neck Pain Bilateral Leg Pain Bilateral Arm Pain Encounter Details Date Type Department Care Team Description 02/01/2020 TH Visit Pain and Spine Jodi Mckeon, Psycholog ical factor (TeleHealth) [facility] [place] [place] affecting physical [facility] [address], [place], [place] [id number] [phone] Social History Tobacco Use Types Packs/Day Years Used Date Former Smoker Cigarettes 0.5 11 Quit: 01/05/20 03 Smokeless Tobacco: Never Used Alcohol Use Standard Drinks/Week Comments No 0 (1 standard drink = 0.6 oz pure alcoho l) Sex Assigned at Date Recorded Not on file documented as of this encounter Last Filed Vital Signs Vital Sign Reading Time Taken Comments Blood Pressure - - Pulse - - Temperature - - Respiratory Rate - - Oxygen Saturation - - Inhaled Oxygen Concentration - - Weight 83.9 kg (185 lb) 02/01/2020 11:05 AM EDT Height 154.9 cm (5' 1) 02/01/2020 11:05 AM EDT Body Mass Index 34.96 02/01/2020 11:05 AM EDT documented in this encounter Progress Notes Jodi Mckeon, Nisha - 02/01/2020 1:00 PM EDT Behavioral Medicine - [facility] Initial Appointment - Biopsychosocial Pain Evaluation Name: Malu De Patient's age: 44 y.o. Date: 02/01/20 12:59 PM Duration of appt: 60 min Malu De gave permission for and was seen for today's appointment with a Telephone visit. During today's visit, she was located at the home address listed in the chart. Malu De is aware that for any urgent MH matter she can call [phone]. Today, the telehealth software was not functioning, and the patient and I were intermittently unableto see or hear one another. We agreed to attempt to complete the initial interview by telephone. Because of a poor phone connection, this provider was unable to use headset/speakerphone, so was unable to type patient responses during the appointment. For that reason it was difficult to adhere to the template below. Some questions were not asked, and will be addressed at a follow-up appointment. SUMMARY: 44 y.o. year old single white female from with hx of Ehler's Danlos syndrome and fibromyalgia referred by Rick Reynaga MD for biopsychosocial pain evaluation. Chart reviewed. Pt struggling with ongoing pain in s/o multiple psychosocial stressors and comorbid health conditions including recent of her 23-year-old daughter, possible ROSALVA, and asthma. Current relevant Rxs include low-dose naltrexone and meloxicam. Patient seen today for 60 minute health and behavior assessment completedvia Telephone. Patient completed the following measures prior to the appointment: Pain Drawing, PainCatastrophizing Scale (PCS)*, Pain Outcomes Questionnaire (POQ), and Patient Health Questionnaire (PH Q-9). Process of initial evaluation and limits of confidentiality were reviewed with Malu who expressed agreement and understanding. * Patient did not complete the pain catastrophizing scale because she felt that some of the languagewas too specific and/or not applicable (e.g., stated that she is not afraid that her pain will grow worse, but rather worries that her pain will grow worse). Will review the questions in this measure and obtain information related to her cognitive response to pain at a later date. DATA In preparation for this initial appointment, Malu's chart and documentation from other providers were reviewed. Much of the documentation of patient's HPI has been copied from previous provider assessments and patient's own descriptions of her pain condition from intake paperwork or messages to other providers. PAIN SUMMARY Malu presents as dysphoric, reporting an average level of pain of 10/10 over the past week, which she states interferes with her ability to walk, carry objects, and climb stairs all the time, and which requires her to use a cane or other assistive device all the time. She reports significant interference with her ability to bathe, dress, groom herself, and use the bathroom. Malu reports that pain completely limits her basic physical activities, and she has extremely lowlevels of energy, strength, and endurance. She did not answer a question about concern about injuring herself if she is more active, but did indicate that she believes it is somewhat unsafe to exercise. She states that pain greatly affects her self-esteem, and reports severe levels of depression (PHQ9= 23), moderate anxiety, significant tension and problems with concentration that make it extremely difficult to work, take care of things at home, and get along with other people. Malu was screened for suicidal ideation, which she denied. Patient's description of her pain from the Pain Drawing: My body is sore, it hurts all over. My muscles are tight and tender to any kind of touch. It feels like when you pull a muscle and it's so soreand it hurts, mine feel like that all the time. My joints hurt constantly, they feel sore like my muscles. It hurts to move and bend, sit, stand, lie down. I constantly need to change positions.?My body and joints ache on top of that, it feels like when you have the flu really bad and you get that whole body ache, I have that all the time. I have about a 20 minute period of time before I need to change position or change what I am doing. Driving is painful,?trying to sleep is a constant changing of position because of the pain and pressure, washing my hair hurts, standing to wash dishes hurts, sitting hurts. I get up in pain, I go through the day in pain and I go to bed in pain. Concentration, focus, remembering have become increasingly hard and difficult. Why Patient believes she still has pain: None of the treatments have worked, lots of side effects ofmedications, and have never really found anything that helped. Has worked with her primary for six years, she has realized that a lot of things that she has been sharing with her providers do not make it into the chart. She felt like that a lot of what she has been trying to tell her doctors has not been getting through to them. She feels like her current provider really cares. Was told at 24 yo thatrajni would become accustomed to it - she felt like her doctor's didn't really understand her conditions. She limited her exposure to her doctors after that, and then her breathing and pain started getting really bad about 6 years ago, she began to really worry that her children would find her unconscious or worse. Primary Concern at this time: It is noted that patient's adult daughter 2 weeks ago in acar accident that the patient witnessed. Her primary concern at this time is actually focusing on care for her teenage son, taking care of her daughter's fianc??, and taking care of the administrative concerns of her daughters affairs. Malu c/o multisite pain secondary to comorbid Sofy-Danlos syndrome and fibromyalgia. She feels that she has had a difficult time over the years finding doctors who listened to her, adequately documented her complaints, and seem to understand her condition. She states that she has an excellent relationship with her current primary. Asked about the sleep study that she was referred to in 2017, she stated that she went through 2 years of attempting to receive a sleep study in her local area ([facility]), and multiple providers that she had been referred to either retired or left the service. She has now been re-referred for a sleep study at [facility]. FUNCTIONAL ASSESSMENT Impact of pain on mood / self-esteem: She states that the impact of pain on her mood and self-esteemis that pain makes her feel bad, stating that there are lots of things that she wishes that she could do with her family including taking her son for a hike or going for a walk. She notes that walking is both stressful/painful for her. She notes that even hugging is quite painful for her, that it hurts for her to have people touch her and it is difficult for her to say to people please do not touch me. Impact on relationships: She notes that she does not have physical relationships with people. She states that her personality is that she is very private and she prefers to keep to herself, describing herself as an introvert. I do not like to talk with people about myself. She notes that her children are the only people with whom she has a deep connection. Impact on work/occupation: She has not worked in approximately 5 years. 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 She states that she misses this kind of work, noting that she now feels kind of useless. She reported that it is hard to feel useful, you never get anything accomplished. She noted that she is the type of person who never liked to accept help from others, that she preferred to care for others, and that now having to ask for andaccept help from others is very difficult for her. Impact on Social/Community activities: She states that she is not involved in social or community activities. Impact on leisure activities and hobbies: She states that she has a very difficult time doing stuff with her kids. She provided the example that she cannot sit through a movie, she cannot really take them out because mom cannot sit for more than a half an hour, she has to move around. She noted thatthey rarely visit restaurants instead having to get take out, as she cannot sit for very long. She reported that she had tried to hide her condition from her children for many years, noting that she did not want them to worry. But as they have grown older they have found out and they tend to worry about her and try to help her. She noted that her daughter Leanne (23, now ) worried a great deal about her and try to help her, and her son Taurus (16) also worries about her and tries to take care of her. She agreed that their worrying and care for her is painful emotionally for her. ASSESSMENT BEHAVIORAL OBSERVATIONS Presentation: Unaccompanied, on time; Alert, oriented x 3. Appearance: Clean, dressed neatly in casual clothing. Well-groomed. Behavior: Cooperative, appropriate, good eye contact. Pain Behavior: None observed Mood: Neutral, stated okau Affect: Congruent. SI/HI: Denied ideation, plan, or intent. Thought process: Linear, goal-directed, logical. No evidence of hallucinations, enriqueta, or delusions. Speech: Normal rate, rhythm, volume. Judgment/Insight: Good. DIAGNOSIS: F54 Psychological factors affecting a medication condition. INITIAL CONCEPTUALIZATION: To be considered following completion of assessment. PLAN: Malu will be scheduled for a 60 m follow up appointment focused on gathering additional information on pain coping skills and assessing motivation for behavioral pain management. documented in this encounter Plan of Treatment Not on filedocumented as of this encounter Visit Diagnoses Diagnosis Psychological factor affecting physical condition Psychic factors associated with diseases classified elsewhere documented in this encounter Care Teams Rotor Coil Taper Relationship Specialty Start Date End Date Brandee Fuchs, CAR BARN LABORER PCP - General Family Medicine 01/17/19 [address] [place] [address] documented as of this encounter
--- OUTSIDE RECORDS SUMMARY | 2022-07-09 01:15 | XMS_ITS | Encounter Summary ---
:1975 Author Organization [facility] [place] [address] Care Team Providers Name Role Phone Brandee Fuchs APRN Primary Care Provider Encounter Details Date Type Department Care Team Description 01/23/2020 TH Visit Rheumatology at [facility] Berkley Hernández, Fibromyalgia (TeleHealth) [facility] [place] [address] [facility] [phone] [place], [place] [address] (Wo rk) Social History Tobacco Use Types Packs/Day Years Used Date Former Smoker Cigarettes 0.5 11 Quit: 01/05/20 03 Smokeless Tobacco: Never Used Alcohol Use Standard Drinks/Week Comments No 0 (1 standard drink = 0.6 oz pure alcoho l) Sex Assigned at Date Recorded Not on file documented as of this encounter Progress Notes Berkley Hernández APRN - 01/23/2020 2:00 PM EDT Rheumatology Progress Note HPI / Rheum Hx: -FMS, hypermobility, ?EDS type III -neck pain, low back pain, polyarthralgia -was supposed to have sleep study -RF, CCP, HLA-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 Gave herHA. Daniela lights up her nerves They recommended low dose naltrexone and meloxicam She was on medrol pack for breathing, this didn't help with her pain Today is last day of Daniela Hasn't been to PT in a month, she is doing HEP Pain psychologist First telephone visit with her last week, setting up visits last week Past OV 09/21/19 The tens unit made things worse Doing nothing for pain right now Her neck, through middle of back gets muscle spasm The low back at tailbone, and her hips She is going to pul here now, who has referred her to sleep clinic For exercise she is walking Her lower back pain is the worse with driving or sitting When she lies down, constantly moving, because switching pressure back and forth If stands up or sits down to long, back start to hurt She would like to go ahead with MRI, at [facility] At first didn't feel tens unit so kept turning it up, then became extremely sensitive to touch Like PT until they overdid did with machines [facility] in [place] Past 06/14/19 Malu De is a 43 y.o. female who returns today for f/u of FMS. Dxed at 16yo. Pain got bad [address] Camargo did a lot of testing, including skin testing which was normal. She hasn't seen ortho or pain. Nothing has helped her pain. She either hasn't tolerated with allergic rxn or hasn't helped. Every muscle relaxant hasn't helped. Elavil, Cymbalta doesn't help. She has never tried gabapentin or lyrica. She hasn't had a sleep study. The insurance didn't cover the one down here. She is awaiting to see new nathaly who also wants her to get sleep study. Sleep study is going to be arranged, sees nathaly on July 12. She has a hard time lying down. Hips pop and move. Joints dislocated. Indicates to SIJ. She notes that if she lifts up the right leg high enough the left SIJ area hurts. No IBD, no pso, no inflammatory eye sxs, tested for lyme and neg When all this began around 16yo, no associated trigger: illness, trauma, exposure When she was born, had breathing issues, had breathing issues all throughout childhood Things became worse after she had her trial Recalcitrant LATHA: follows with heme, planning on colo, planning on transfusions She is tired when she wakes up in the morning. All of her joints hurt on Her lower back and hips are sore in the morning. She can't stay in the same position. She wakes up frequently. Has a hard time falling asleep. Hips, knees, ankles, sij. Ankles snap. Her joint pain is constant, doesn't feel better with movement or rest. She notices swelling at her ankles sometimes at then end of the day sometimes in the morning. She thinks sometimes wrist swell, sometimes knuckles She has never done PT. Did pool therapy many years ago. She tries Advil at home, it lessened the pain in her back, which she describes as a muscular pain, does not the tightness of her muscles. The tighter her back is, the harder to breath. She would take 1200mg advil at once, upset her stomach, so doesn't take anymore. She has tried heating pads. Helps in the short term. Past 01/11/17 The pt was a 41-year-old female, who returned for a follow up of neck pain, low back pain,and multiple joint. The pt noted that since her initial visit on September 13, 2016, she continued to experience neck pain, back pain, and multiple joint pain. Overall, the pain was worst in her upper back, followed by the neck, hips, shoulders, legs, and then arms.?? She denied any joint swelling, but she did complain of morning stiffness of the whole body that lasted all day.?? Laboratory studies obtained after her initial visit showed severe vitamin D deficiency with a 25-hydroxyvitamin D level of 14. She was also noted to have marked microcytosis with MCV of 70.3, but mild anemia. She was seronegative for RF, anti-CCP antibodies, and HLA B27. EMG studies obtained on October 18, 2016 were normal. Results of skin biopsy performed on January 04, 2017 were pending. Otherwise, she continued to complainof chronic fatigue, leg swelling, dyspnea on moderate exertion, difficulty swallowing, dizziness, and anxiety. She had no dysuria, polydipsia, blood clots, or rash. Past 09/13/16 The pt was a 40-year-old female, who presented for a consultation of neck pain, low back pain, and multiple joint pain upon request of her primary care provide Brandee Fuchs APRN.?? The pt noted that she initially developed upper back pain without any inciting cause such as fall, injuries, or trauma about two years ago.?? The back pain soon spread to low back and multiple joints, including hips, shoulders, knees, and then ankles. Overall, the pain was worst in her upper back, followed by the neck, hips, shoulders, legs, and then arms.?? She denied any joint swelling, but she did complain of morning stiffness of the whole body that lasted all day.?? She was subsequently put on a multitude of agents, including amitriptyline, tramadol, and muscle relaxants, for symptomatic pain relief, butshe felt minimal pain relief with these agents.?? She was subsequently referred to the Rheumatology Clinic at [facility] for further evaluation. ROS: Pulm (+) follows with pulm for uncontrolled asthma, dxed with asthma at 16yo, which happened at the same time she started with chronic pain; she does 5-12 nebs per day MS See HPI Neuro See HPI Psych See HPI PAST MEDICAL HISTORY: Asthma Severe vitamin D [...] boyfriend who smokes.?? 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 ?? FAMILY HISTORY: Mother - Diabetes mellitus II; alive at the age of 60. ?? Father - Chronic alcoholism; of heart and liver failure at the age of 50. Physical Exam: General: AAOx Resp: No increased work of breathing Studies: 06/11/19 SIJ xr nl at OSH [...] lordosis. 3. L5-S1 minimal facet arthropathy. Assessment/Plan: Multiple joint pain in the setting of FMS and hypermobile joints most evident in elbows and hands. Pt does not currently meet Beighton's criteria, but I do not doubt that hypermobility is contributing to her pain. She has had normal EMG and skin bx as ordered by Dr. Camargo in the past. Prior work-up forinflammatory arthritis was unremarkable. Tested for lyme at onset of all of this and neg. Prior meds that were ineffective of not tolerated: cyclobenzaprine, elavil, cymbalta, indomethacin, tramadol, gabapentin, savella PCP is managing pain right now. Pt did not tolerate Savella, so next will try LDN and meloxicam thruPCP. Discussed that PCP can manage care in the future unless she wishes for co-management. I reachedout to PCP to discuss further. Briefly discussed mmj in the future should ldn and meloxicam not prove effective. Continue with pain clinic, pain psychologist Continue with HEP RTC PRN Patient verbally consents to this telephone visit and understands that this visit may be billed, similar to a clinic office visit. I provided care to the patient today via telephone call. The total time associated with this visit was 10 minutes. documented in this encounter Plan of Treatment Not on filedocumented as of this encounter Visit Diagnoses Diagnosis Fibromyalgia Mylagia and myositis, unspecified documented in this encounter Care Teams Licensed Final Expense Agents Relationship Specialty Start Date End Date Brandee Fuchs APRN PCP - General Family Medicine 01/17/19 [address] [place] [address] documented as of this encounter
--- OUTSIDE RECORDS SUMMARY | 2022-07-09 01:15 | XMS_ITS | Encounter Summary ---
:1975 Author Organization [facility] [place] [address] Care Team Providers Name Role Phone Brandee Fuchs MAVIS Primary Care Provider Reason for Visit Reason Comments Follow-up Encounter Details Date Type Department Care Team Description 12/14/2019 Office Visit [place] [facility] Nuha Dubon MD Moderate persistent asthma, unspecified whether complicated; [facility] allergies [facility] [address] [place] Pulmonary [id number] Medicine [phone] [place], [place] [address] Social History Tobacco Use Types [...] Sign Reading Time Taken Comments Blood Pressure 109/62 12/14/2019 1:31 PM EST Pulse 62 12/14/2019 1:31 PM EST Temperature - - Respiratory Rate 16 12/14/2019 1:31 PM EST Oxygen Saturation 99% 12/14/2019 1:31 PM EST Inhaled Oxygen Concentration - - Weight 91.2 kg (201 lb 1 oz) 12/14/2019 1:31 PM EST Height 155.5 cm (5' 1.22) 12/14/2019 1:31 PM EST Body Mass Index 37.72 12/14/2019 1:31 PM EST documented in this encounter Patient Instructions Patient InstructionsNuha Dubon MD - 12/14/2019 1:30 PM EST Keep taking your inhalers. It would be okay to try the duonebs in place of albuterol as-needed. Let's check your eosinophil level (bloodwork) today to see if there are any other targets to manage your asthma and allergies. Your vocal chords may be contributing to your shortness of breathe at times. Mindfulness practices and relaxation techniques can also be helpful for this. documented in this encounter Progress Notes Nuha Dubon MD - 12/14/2019 1:30 PM EST Images from the original note were not included. [facility] Section of Pulmonary and Critical Care Medicine Outpatient Consultation Date of Encounter: 12/14/2019 Reason for Evaluation: Ms. Malu De returns to the pulmonary clinic for follow-up of asthma and allergies. I independently interviewed and examined the patient in the office and have reviewed available records. Dear Dr. Brandee Fuchs, STATE'[employer]NEY, As you know, Malu De is a 44 y.o. female with history of asthma, allergies, fibromyalgia andGERD who returns for scheduled pulmonary clinic f/u. She was last seen in pulmonary clinic in September 2019. Ms. De reports feeling okay, about the same. Still having ongoing respiratory symptoms. Danese likeshe had a respiratory exacerbation last week, which lasted for 2-3 days, during which she was short of breath with walking, coughing, and felt her symptoms were somewhat refractory to albuterol despitefrequent use. Response to albuterol seemed variable, wheezing noise seemed to respond for a few hours, but dyspnea didn't really respond. She did not require ED evaluation for this, and did not end up on oral steroids. Currently she is feeling a little better, still using albuterol frequently (about 5times most days), but feels her wheezing is less. She is not coughing, and denies chest congestion. She denies sinus congestion this week, but recalls a little last week which was mild. She has no fevers or chills, or chest pain. She is still experiencing acute episodes of dyspnea associated with spasms of back pain and body tension; these episodes are partially responsive to albuterol. She finds walking past people who are vaping will trigger respiratory symptoms. She felt some increase in respiratory symptoms on recent warm days when snow was melting as well. She feels her GERD is well controlled. She still has chronic pain from fibromyalgia. She has some anemia. She denies any recent ED visits or infections, or new medical problems. 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 She is on breo ellipta and spiriva, both of which help, doesn't miss doses, and of the inhalers she has been on over many years seem to be better than most of the others she tried. She is taking singulair daily and nasacort, with generally good sinus allergy control. She has albuterol MDI and neb options, primarily uses the nebulized dose. As you will recall she was evaluated by ENT last year, and has not had recurrence of sinus blockage/pseudopolyps since then. She was last on prednisone in June by her report, and recalls about 3 courses of prednisone last year for asthma/respiratory symptoms, more in previous years. She previously tried xolair for allergies with bad reaction to the drug, and has not tried any other biologic asthma treatments. Current Medications at Start of Encounter: Outpatient Medications Prior to Visit Medication Sig Dispense Refill ??? polyethylene glycol (Miralax) 17 gram/dose Powder [...] (Patient taking differently: Take 325 mg by mouth three times a week. Takes 1 tab every other day) 180tablet 3 ??? albuterol (PROVENTIL) 2.5 mg /3 [...] (NASACORT OR NASACORT OTC) 55 mcg Aerosol, [place] 2 sprays by Nasal route daily. No facility-administered medications prior to visit. Review of Systems: An 10-point ROS was completed and was positive as noted in HPI, also positive for chronic joint stiffness, chronically large tonsils, and otherwise negative. Physical Examination: BP 109/62 Pulse 62 Resp 16 Ht 155.5 cm (5' 1.22) Wt 91.2 kg (201 lb 1 oz) SpO2 99% BMI 37.72 kg/m?? GEN: NAD, alert, generally well appearing, comfortable and conversational HEENT: MMM, large 2-3+ tonsils, unable to visualize posterior OP beyond uvula, nares are patent withmoderate erythema and edema, left moreso than right, and appear shiny, anicteric sclera, PERRL, neckis supple with no LAD or tenderness, no sinus tenderness CV: RRR, normal S1, S2, no murmur PULM: normal WOB, breath sounds throughout chest are somewhat variable, inspiratory phase seems slow, there is no wheezing, no crackles or rhonchi, and no prolongation of exhalation, no cyanosis or clubbing ABD: +BS, soft, NT/ND, no HSM or mass MSK: no joint swelling; she appear uncomfortable when first standing but is easily ambulatory and able to get onto exam table EXT: warm, perfused, no edema DERM: no rash NEURO: AAO, appropriate, voice is clear and normal caliber Pulmonary Function Test Results: Date FVC FEV1 Ratio TLC RV RV/TLC ERV DLCO 6MWT 12/14/2019 2.20 L (67% pred) 1.63 L (61% pred) 74 (normal) Post-bronchodilator: FVC increased significantly, to 85% pred, with FEV1/FVC reduced to 66. The [id number] is reduced pre-bronchodilator. FeNO is 33. I personally reviewed flow-volume loops and other tests. Results are most consistent with moderate airflow obstruction on post-bronchodilator results, although pre-bronchodilator spirometry was not obstructed. The FeNO is intermediate. Labs, Microbiology and Imaging: I personally reviewed relevant laboratory, microbiologic and radiology results which were significant for: CBC from 2017 demonstrates eosinophilia to 600s No new imaging Immunization History: Flu vaccine: reports yes Pneumovax: reports yes Prevnar-13: NA Impression and Recommendations: Malu De is a 44 y/o woman with frequent dyspnea in the setting of asthma, allergies, GERD, and fibromyalgia concerning for moderate persistent asthma with some unusual features. Her spirometry is a little curious with some inconsistency in results, no measured obstruction on initial testing, with post- bronchodilator testing consistent with moderate airflow obstruction, and moderately elevatedFeNO combined with history of eosinophilia in the past is suggestive of allergic asthma phenotype. Some of her acute symptoms could also reflect paradoxical vocal chord movement (VCD), particularly those triggered by watching people smoke or by back spasms, and we dicussed the potential benefit from stress management techniques such as mindfulness for the very acute episodes of dyspnea she experiences. For now, I would recommend focusing on consistent treatment targeting uncontrolled asthma, and recommended she continue on triple inhaled therapy with ICS/LABA (Breo ellipta) and LAMA (Spiriva), and a lbuterol or duonebs PRN. She remains on singulair and flonase. She was previously intolerant of xolair but we discussed the potential role for new biologic therapy targeting the IL5 inflammatory pathway in asthma and allergies which may reduced the frequency of exacerbations and oral steroid requirements, and she is open to discussing this further. I requested an updated CBC after this visit which demonstrates persistent eosinophilia to 500, and she would be a candidate for anti-IL5 therapy. Summary Recommendations: - has persistent airflow obstruction post-bronchodilator on testing at this visit; concerning for uncontrolled persistent asthma - continue breo and spiriva daily - continue albuterol PRN; okay to use duonebs PRN if feels more efficacious - continue singulair and nasal steroids - has persistent eosinophilia on CBC after this visit, and would be a candidate for anti-IL5 biologic therapy if interested in the future - may also benefit from relaxation techniques/mindfulness for episodes of acute, quickly resolving dyspnea associated with back spasms/visual triggers (such as seeing people smoking) as this may reflected paradoxical vocal chord movement Thank you for involving me in Mrs. De's care. Follow up has been arranged in 3 months in our clinic. Please feel free to contact me with any further questions or concerns Nuha Dubon MD N [facility]UL[facility] AT [facility] [id number] Dept: [phone] Loc: [phone] documented in this encounter Plan of Treatment Not on filedocumented as of this encounter Procedures Procedure Name Priority Date/Time Associated Diagnosis Comme nts SCAN, PERIPHERAL Routine 12/14/2019 2:41 PM Resul ts for this BLOOD EST procedure are i n the results section. HEMOGRAM Routine 12/14/2019 2:41 PM Moderate persistent Re sults for this EST asthma, unspecified procedur e are in whether complica shashi the results Environmental section. allergies DIFFERENTIAL, Routine 12/14/2019 2:41 PM Moderate persistent R esults for this AUTOMATED EST asthma, unspecified procedur e are in whether complica shashi the results Environmental section. allergies HC CBC,PLT & AUTO Routine 12/14/2019 2:41 PM Moderate persiste nt DIFF EST asthma, unspecified whether complica shashi Environmental allergies documented in this encounter Results Scan, Peripheral Blood (12/14/2019 2:41 PM EST) [facility] Method Time Signature Plat Estimate Increased [facility] RBC Morphology Abnormal [facility] Microcytes 6-10 /HPF [facility] Hypochromia Slight [facility] Polychromasia Present >5/HPF [facility] Ovalocytes 6-10 /HPF [facility] Target Cells 1-5 /HPF [facility] Specimen Anatomical Collection Method Collection Time Receive d Time (Source) Location / / Volume Laterality Blood specimen 12/14/2019 2:41 PM 020 2:52 (specimen) EST PM EST Resulting Agency Comment Spec In Lab Nuha Dubon MD HEMATOLOGY ORDERABLES Performing Organization Address City/State/ZIP Code Phon e Number [place] [id number] (ABNORMAL) Differential, Automated (12/14/2019 2:41 PM EST) [facility] Method Time Signature Neutrophils % 47.7 % [facility] Neutr Abs (ANC) 4.09 1.70 - [facility] 6.10 [facility] x10(3)/[facility] LABORATORY Lymphocytes % 38.6 % [facility] Lymphocytes Abs 3.3 (H) 0.9 - 3.2 [facility] x10(3)/[facility] LABORATORY Monocytes % 7.1 % [facility] Monocyte Abs 0.6 0.3 - 0.9 [facility] x10(3)/[facility] LABORATORY Eosinophils % 5.5 % [facility] Eosinophils Abs 0.5 (H) 0.0 - 0.4 [facility] x10(3)/[facility] LABORATORY Basophils % 0.7 % [facility] Basophils Abs 0.1 0.0 - 0.1 [facility] x10(3)/[facility] LABORATORY Immature Gran % 0.40 % [facility] Comment: Immature granulocytes(IG's)percentage an d absolute count will include metamyelocytes, myelocytes, and promyelo cytes. Blood smears from CBCs yielding IG's will be scanned manually for concor dance. If this scan disagrees with the automated IG or if promyelocytes are not ed, a manual differential will be performed. Gayle Gran Abs 0.03 0.00 - 0.04 x10(3)/[facility] Specimen Anatomical Collection Method Collection Time Receive d Time (Source) Location / / Volume Laterality Blood specimen 12/14/2019 2:41 PM 020 2:52 (specimen) EST PM EST Resulting Agency Comment Spec In Lab uNha Dubon MD HEMATOLOGY ORDERABLES Performing Organization Address City/State/[place] [address] (ABNORMAL) Hemogram (12/14/2019 2:41 PM EST) Analysis Performed At Patho logist Time Signature WBC 8.6 4.0 - 9.5 [facility] x10(3)/[facility] LABORATORY RBC 5.33 (H) 4.00 - [place] 5.21 [facility] x10(6)/[facility] LABORATORY Hemoglobin 11.0 (L) 11.7 - [facility] 15.5 gm/dL [facility] Hematocrit 39.5 35.7 - [facility] 45.8 % [facility] MCV 74.1 (L) 82.6 - [facility] 94.4 [facility] LABORATORY MCH 20.6 (L) 27.1 - [facility] 32.0 pg [facility] MCHC 27.8 (L) 31.7 - [facility] [place] 35.0 gm/dL [facility] Platelets 475 (H) 145 - 357 [facility] x10(3)/[facility] LABORATORY RDWSD 49.0 (H) 37.0 - [facility] [place] 46.0 [facility] LABORATORY RDWCV 18.8 (H) 11.5 - [facility] Ю[place] 14.1 % [facility] MPV 9.1 7.6 - 12.9 [facility] LABORATORY nRBC % Auto 0.0 % [facility] nRBC Abs Auto 0.000 0.000 - [facility] [place] 0.000 [facility] x10(3)/[facility] LABORATORY Specimen Anatomical Collection Method Collection Time Receive d Time (Source) Location / / Volume Laterality Blood specimen 12/14/2019 2:41 PM 020 2:52 (specimen) EST PM EST Resulting Agency Comment Spec In Lab Nuha Dubon MD HEMATOLOGY ORDERABLES Performing Organization Address City/[facility]/[place] [address] documented in this encounter Visit Diagnoses Diagnosis Moderate persistent asthma, unspecified whether complicated Environmental allergies Allergic rhinitis, cause unspecified documented in this encounter Care Teams Highway Safety Engineer Relationship Specialty Start Date End Date Brandee Fuchs, MAVIS PCP - General Family Medicine 01/17/19 [address] [place] [address] documented as of this encounter
--- OUTSIDE RECORDS SUMMARY | 2022-07-09 01:15 | XMS_ITS | Encounter Summary ---
:1975 Author Organization [facility] [place] [address] Care Team Providers Name Role Phone Brandee Fuchs APRN Primary Care Provider Encounter Details Date Type Department Care Team Description 04/02/2020 Telephone Pulmonology at [facility] [place] [address] Social History Tobacco Use Types Packs/Day Years Used Date Former Smoker Cigarettes 0.5 11 Quit: 01/05/20 03 Smokeless Tobacco: Never Used Alcohol Use Standard Drinks/Week Comments No 0 (1 standard drink = 0.6 oz pure alcoho l) Sex Assigned at Date Recorded Not on file documented as of this encounter Miscellaneous Notes Telephone Encounter - Jaimie Simmons LNA - 04/02/2020 9:36 AM EDT LM for pt to call us back re appts on 04/08, pft and Dr. Dubon. Cancelled pft and offered telehealth with Dr. Dubon. documented in this encounter Plan of Treatment Not on filedocumented as of this encounter Visit Diagnoses Not on filedocumented in this encounter Care Teams Fruit Shipper Relationship Specialty Start Date End Date Brandee Fuchs APRN PCP - General Family Medicine 01/17/19 [address] [place], [place] [id number] documented as of this encounter
--- OUTSIDE RECORDS SUMMARY | 2022-07-09 01:15 | XMS_ITS | Encounter Summary ---
:1975 Author Organization [facility] [place] [address] Care Team Providers Name Role Phone Brandee Fuchs Obdulia GAMBLE Primary Care Provider Reason for Visit Reason Comments Prior Authorization Dupixent 300mg/2ml SOSY Encounter Details Date Type Department Care Team Description 04/10/2020 Specialty Pharmacy Pharmacy at [facility] [place], Prior Authorization [facility] Fidencio Roman (Dupixent 300mg/2ml Drive SOSY) [place] [id number] Social History Tobacco Use Types Packs/Day Years Used Date Former Smoker Cigarettes 0.5 11 Quit: 01/05/20 03 Smokeless Tobacco: Never Used Alcohol Use Standard Drinks/Week Comments No 0 (1 standard drink = 0.6 oz pure alcoho l) Sex Assigned at Date Recorded Not on file documented as of this encounter Progress Notes Fidencio Segundo - 04/10/2020 1:23 PM EDT [facility], Medication Prior Authorization Patient: Malu De Patient : 1975 Patient Address: [address] [place] [id number] (home) Medication Name: DUPIXENT 300 MG/2 ML SUBCUTANEOUS SYRINGE Medication ID: Patient Location: Patient Location Comment: Subscriber Insurance: [place] Subscriber Insurance Comment: Fax: Physician: HELEN RODGERS Physician Comment: Sent Via: Fax [place]: Ref/Case/PA#: Medication Strength Frequency Requested: Dupixent 300mg/2ml SOSY every 14 days Qty/Day Supply: 01/21 New Start: New to Therapy Diagnosis & ICD-10 Code: J45.51 Severe persistent asthma with acute exacerbation Patient Notified: No Submission Notes: Isabella Chairez - 04/10/2020 1:23 PM EDT [facility], Prior Authorization Approval Medication Name: DUPIXENT 300 MG/2 ML SUBCUTANEOUS SYRINGE Medication ID: [id number] Fillable at [facility]: Yes Approval Dates: 04/10/2020 to 07/11/2020 Insurance requirements/notes: Other notes Approval is good for both the loading and maintenance dose Case/Reference #: [id number] Approval notification Received via: Fax Copay: $3.00 Copay assistance: None Copay Notes: Patient is not eligible for the copay card since she has Medicaid Insurance mandated Pharmacy: [facility] Pharmacy staff will be reaching out to the patient to inform them of their medication's approval by their insurance. If applicable, a pharmacist will speak with the patient to offer our specialty pharmacy services and to arrange delivery of their medication. documented in this encounter Plan of Treatment Not on filedocumented as of this encounter Goals Goal Patient Goal Associated Recent Patient-Stated? Author Type Problems Progress DH Home Medication Patient Yes Irish, Compliance and Facing Rekha Roman Understanding Action Plan [facility] Note: Formatting of this note might be d ifferent from the original. Reduction in use of SMILEY to 1-2 nebulize r treatments per day. Measured by: Patient report Time frame: 6 months documented as of this encounter Visit Diagnoses Not on filedocumented in this encounter Care Teams Risk Tech Relationship Specialty Start Date End Date Brandee Fuchs APRN PCP - General Family Medicine 01/17/19 [address] [place] [address] documented as of this encounter
--- OUTSIDE RECORDS SUMMARY | 2022-07-09 01:15 | XMS_ITS | Encounter Summary ---
:1975 Author Organization [facility] [place] [address] Care Team Providers Name Role Phone Jef Brandee Steiner APRN Primary Care Provider Reason for Visit Psychiatric (Routine) - Closed Specialty Diagnoses / Procedures Referred By Contact Refer red To Contact Pain and Spine Center Diagnoses Fibromyalgia PNE - 15 min TOV *okay to schedule Rick Reynaga Dana M, E, MD [facility] [place] [facility] [place] [address] [place] [address] Fax: Referral ID Status Reason Start Date Expiration Date Visits V isits Requested Authorized [id number] Closed Consult, 11/29/2019 11/28/2020 1 1 Test & Treat Encounter Details Date Type Department Care Team Description 01/17/2020 TH Visit Pain and Spine Center Jodi Mckeon Fi bromyalgia (TeleHealth) at [facility] [place] [address] [place] [address] [place] [address] [phone] (Wo rk) Social History Tobacco Use Types Packs/Day Years Used Date Former Smoker Cigarettes 0.5 11 Quit: 01/05/20 03 Smokeless Tobacco: Never Used Alcohol Use Standard Drinks/Week Comments No 0 (1 standard drink = 0.6 oz pure alcoho l) Sex Assigned at Date Recorded Not on file documented as of this encounter Progress Notes Jodi Mckeon, PsyD - 01/17/2020 1:30 PM EDT [facility] - Telephone Visit Behavioral Medicine Date: 01/17/2020 Pt: Malu Toribio verbally consents to this telephone visit and understands that this visit may be billed, similar to a clinic office visit During this visit Malu was located at the home address listed in thechart. Patient informed that for any urgent MH crisis, s/he can call [phone]. Total time of call 22 minutes. Subjective: Today, Malu reports feeling grief as her daughter was recently killed in a car accident. Sheis remaining at home during the public health crisis. Malu denied feeling suicidal and stated that she is supported emotionally by her family and friends. She does not have a counselor or elementary secretary. Denies SI over past 30 days, denies hx of delusions or ideas of references. Endured a brief psychotic episode in 2018 after an incident of hypothermia and hypoxia, but states that this has resolved. - Consent: Patient states she is available for and consents to telehealth appointments using Virtual Visit or Zoom software. She does not have a computer at home, but has a smart phone. - Patient has not used this modality previously. Explained that she will be provided written instructions and that she should review these and set up the software on her phone prior to the intake appointment in case she has any difficulties. She expressed her understanding and agreement. - Patient lives in [place] where this provider may practice via telehealth per [place] law H742. - Patient uses [facility]. - Patient consents that materials could be sent to the e-mail address listed in the chart Telephone MSE: Patient sounded dysphoric on the phone but was able to respond to questions with linear, goal-directed answers. Speech WNL. Denied suicidal ideation. No evidence of delusions or hallucinations. Judgment and insight appear intact, cognition appears WNL. Decision Making/Plan: Patient will be contacted to schedule (ninety) 90m Psy Evaluation appt via televideo to take place within next 2-3 weeks. Prior to this appointment, pt will need to complete Pain Psychology intake paperwork via. [facility]. Appreciate Construction Trades Teacher's assistance in the care of this pt. documented in this encounter Plan of Treatment Scheduled Referrals Name Type Priority Associated Diagnoses Order S chedule Referral to Outpatient Referral Routine Fibromyalgia Ordered: Psychology 11/29/2019 documented as of this encounter Visit Diagnoses Diagnosis Fibromyalgia Mylagia and myositis, unspecified documented in this encounter Care Teams Data Entry Representative Relationship Specialty Start Date End Date Brandee Fuchs, CATERING STAFF MEMBER PCP - General Family Medicine 01/17/19 [address] [place] [address] documented as of this encounter
--- OUTSIDE RECORDS SUMMARY | 2022-07-09 01:15 | XMS_ITS | Encounter Summary ---
:1975 Author Organization [facility] [place] [address] Care Team Providers Name Role Phone Daniellino Brandee Lino GAMBLE Primary Care Provider Reason for Referral Consultation (Routine) - Specialty Diagnoses / Procedures Referred By Contact Refer red To Contact Sleep Center Diagnoses Snoring Emma Johnson MD [facility] Sleep Medicine Procedures PRG HOME SLEEP TEST TYPE [address] [facility] [address] [address] [place] [address] Referral ID Status Reason Start Date Expiration Date Visits V isits Requested Authorized [id number] Test Only 02/27/2020 02/26/2021 1 1 Encounter Details Date Type Department Care Team Description 02/27/2020 TH Visit Sleep Center at Emma Johnson MD Snoring (Primary Dx) (TeleHealth) [facility] [address] [place] SLEEP [place]ORD[place] [address] CENTER [phone] [place], [place] [address] (Wo rk) Social History Tobacco Use Types [...] - - Weight 83.9 kg (185 lb) 02/26/2020 2:02 PM EDT pt repor shashi Height 154.9 cm (5' 1) 02/26/2020 2:02 PM EDT Body Mass Index 34.96 02/26/2020 2:02 PM EDT documented in this encounter Progress Notes Emma Johnson MD - 02/27/2020 12:00 PM EDT Sleep Medicine Follow-Up Note - Telephone Note due to COVID 19 Patient location: home, [place] Provider location: [place] Chief Complaint: ? ROSALVA HPI: Ms. Malu De is a 44 y.o. female seen at for follow-up regarding obstructive sleep apnea. Seen in my clinic in 2017. Was to proceed to in lab testing, but got letter from insurer that it wasn't covered. Then tried to seek care closer to home, but lab shut down. Returns today to revisit sleep testing. Pain has only gotten worse. Ongoing disrupted sleep. Asthma, VCD Definite snoring (partners says so) Wakes with SOB, feels that she needs to do a neb when wakes. No home oxygen. Daughter in a car accident, she was in the car behind her. On steroids last month. Infusions, iron - premedicate with steroids, antinausea meds, then 4 days of steroids Sleep hours: Physically in bed 10 - 11pm, but doesn't fall asleep until 4 - 6 am. Up and down, a lot. 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 On weekends, 7-8 am. Lies down, doesn't sleep, every day Can stand up and do stuff for a little while, but then needs to sit, but then needs to lie down. Pain causes her to do this. Maybe an hour total. Questionnaires: Patient-reported scores: [facility] 11/29/2019 [facility] - Insomnia Severity Index - VR12 - Physical Component Summary 19.08 VR12 - Mental Component Summary 48.74 [facility] 08/17/2017 11/29/2019 [facility] 8 - Insomnia Severity Index Incomplete - VR12 - Physical Component Summary 18.27 19.08 VR12 - Mental Component Summary 39.96 48.74 Daytime Symptoms: Naps: denies, but lies down in the day Involuntary Dozing: no Driving: Exhausted feeling (all the time, years), doesn't drive if actually sleepy and only when hasto . Patient Active Problem List Diagnosis Code ??? Asthma J45.909 Current Outpatient Medications Medication Sig Dispense Refill ??? dexamethasone (Decadron) 4 mg Tablet Take [...] (NASACORT OR NASACORT OTC) 55 mcg Aerosol, Evarts 2 sprays by Nasal route daily. ??? polyethylene glycol (Miralax) 17 gram/dose Powder as needed. ??? ferrous sulfate 325 mg (65 mg iron) Tablet Take 1 tablet by mouth 2 times daily (after meals). (Patient not taking: Reported on 02/26/2020) 180 tablet 3 No current facility-administered medications for this visit. PE: Body mass index is 34.96 kg/m??. Vitals: 02/26/20 1402 Weight: 83.9 kg (185 lb) Height: 154.9 cm (5' 1) Wt Readings from Last 5 Encounters: 02/26/20 83.9 kg (185 lb) 02/21/20 89.9 kg (198 lb 3.1 oz) 02/07/20 91.2 kg (201 lb) 02/01/20 83.9 kg (185 lb) 12/14/19 91.2 kg (201 lb 1 oz) Assessment: Ms. Malu De is a 44 y.o. female who is seen for follow-up of the assessment of obstructive sleep apnea. She has not yet been tested and now care is complicated by COVID-19. In lab sleep testing is delayed at this point. Home sleep testing is not ideal given her insomnia symptoms, highly disrupted sleep, and underlying pulmonary disease. We discussed the pros and cons in detail - she was agreeable to starting with a home sleep apnea test first. If non-diagnostic, then proceed to in lab testing. If positive, will need to consider if it would be appropriate to proceed to AUTOPAP orwait for a formal titration study. Time spent on the call: 30 min Recommendations: 1) HST first. If non-diagnostic, then in lab PSG. If positive, will need to review oxygenation in the consideration of AUTOPAP vs return for a PAP titration study (but this is currently on hold due to COVID -19). The patient indicates understanding of these issues and agrees with the plan. Emma Johnson MD documented in this encounter Plan of Treatment Scheduled Referrals Name Type Priority Associated Diagnoses Order S chedule Referral to Sleep Outpatient Referral Routine Snoring Ord ered: Disorders Center 02/27/2020 documented as of this encounter Visit Diagnoses Diagnosis Snoring - Primary Other dyspnea and respiratory abnormalit y documented in this encounter Care Teams Armature Winder Helper Repair Relationship Specialty Start Date End Date Brandee Fuchs, CURTAIN CLEANER PCP - General Family Medicine 01/17/19 [address] [place] [address] documented as of this encounter
--- OUTSIDE RECORDS SUMMARY | 2022-07-09 01:15 | XMS_ITS | Encounter Summary ---
:1975 Author Organization [facility] [place] [address] Support Name Relationship Address Phone No One Unavailable Unavailable Taurusjayjay Michael Child [address] [phone] [place] [address] Care Team Providers Name Role Phone Brandee Fuchs APRN Primary Care Provider Encounter Details Date Type Department Care Team Description 03/14/2020 Telephone Pain and Spine Azra lakhani at [facility] [place] [address] Social History Tobacco Use Types Packs/Day Years Used Date Former Smoker Cigarettes 0.5 11 Quit: 01/05/20 03 Smokeless Tobacco: Never Used Alcohol Use Standard Drinks/Week Comments No 0 (1 standard drink = 0.6 oz pure alcoho l) Sex Assigned at Date Recorded Not on file documented as of this encounter Miscellaneous Notes Telephone Encounter - Liliana Thomas - 03/14/2020 4:17 PM EDT LVM to schedule on 03/24/20 @2:30 for 60 min in clinic visit per DMP documented in this encounter Plan of Treatment Not on filedocumented as of this encounter Visit Diagnoses Not on filedocumented in this encounter Care Teams Gear Generator Set Up Operator Relationship Specialty Start Date End Date Brandee Fuchs APRN PCP - General Family Medicine 01/17/19 [address] [place], [place] [address] documented as of this encounter
--- OUTSIDE RECORDS SUMMARY | 2022-07-09 01:15 | XMS_ITS | Encounter Summary ---
:1975 Author Organization [facility] [place] [address] Care Team Providers Name Role Phone DanielBrandee huynh Obdulia GAMBLE Primary Care Provider Encounter Details Date Type Department Care Team Description 04/29/2020 TH Visit Rheumatology at [facility] Berkley Hernández, Fibromyalgia (TeleHealth) [facility] [place] [address] [facility] [phone] [place], [place] [address] (Wo rk) Social History Tobacco Use Types Packs/Day Years Used Date Former Smoker Cigarettes 0.5 11 Quit: 01/05/20 03 Smokeless Tobacco: Never Used Alcohol Use Standard Drinks/Week Comments No 0 (1 standard drink = 0.6 oz pure alcoho l) Sex Assigned at Date Recorded Not on file documented as of this encounter Patient Instructions Patient InstructionsBerkley Hernández APRN - 04/29/2020 2:00 PM EDT RTC 4 months documented in this encounter Progress Notes Berkley Hernández APRN - 04/29/2020 2:00 PM EDT Rheumatology Progress Note HPI / Rheum Hx: -FMS, hypermobility, ?EDS type III -neck pain, low back pain, polyarthralgia -Needs diagnostic PSG, failed home sleep apnea test -RF, CCP, HLA-B27 neg -EMG wnl 2017, skin bx at that time as well but no reported path results -chronic LATHA, txed with infusion which helped but poor tolerance Interval Hx Pt Message I wanted to go over [...] worried about breathing in humid pool environment Past OV 01/23/2020 She is not well, daughter in a [...] like to go ahead with MRI, at [facility] At first didn't feel tens unit so kept turning it up, then became extremely sensitive to touch Like PT until they overdid did with machines [facility] Physical Therapy in [place] Past 06/14/19 Malu De is a 43 [...] subsequently referred to the Rheumatology Clinic at [facility] for further evaluation. ROS: Pulm Follows with pulm for uncontrolled asthma, dxed with asthma at 16yo, which happened at the sametime she started with chronic pain; she does 5-12 nebs per day; just started dupixent [place] Diffuse arthralgia and myalgia Neuro neuropathic [...] boyfriend who smokes.?? 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 [...] cyclobenzaprine, elavil, cymbalta, indomethacin, tramadol, gabapentin, savella Pt to fill out her part of MMJ form and send in to me. Pt to trial turmeric 2000mg daily. Pt to try topical CBD. We discussed that we have limited number of treatment options left in terms of pharm. Could considermeloxicam (which she did not start as wants to determine her tolerance to Dupixent first), LDN, Effexor Failed HSAT, due for diagnostic PSG RTC 4 months Patient verbally consents to this telephone visit and understands that this visit may be billed, similar to a clinic office visit. I provided care to the patient today via telephone call. The total time associated with this visit was 20 minutes. documented in this encounter Plan of Treatment Not on filedocumented as of this encounter Goals Goal Patient Goal Associated Recent Patient-Stated? Author Type Problems Progress DH Home Medication Patient Yes Irish, Compliance and Facing Emrea Jessie , Understanding Action Plan [facility] Note: Formatting of this note might be d ifferent from the original. Reduction in use of SMILEY to 1-2 nebulize r treatments per day. Measured by: Patient report Time frame: 6 months documented as of this encounter Visit Diagnoses Diagnosis Fibromyalgia Mylagia and myositis, unspecified documented in this encounter Care Teams Java [id number] Software Engineer Relationship Specialty Start Date End Date Brandee Fuchs APRN PCP - General Family Medicine 01/17/19 [address] [place] [address] documented as of this encounter
--- OUTSIDE RECORDS SUMMARY | 2022-07-09 01:15 | XMS_ITS | Encounter Summary ---
:1975 Author Organization [facility] [place] [address] Care Team Providers Name Role Phone Brandee Fuchs APRN Primary Care Provider Reason for Visit Reason Comments Specialty Pharmacy Review Encounter Details Date Type Department Care Team Description 04/10/2020 Specialty Pharmacy Pharmacy at [facility] [place] [place] [address] Social History Tobacco Use Types Packs/Day Years [...] on filedocumented in this encounter Care Teams Manufacturing Chief Engineer Relationship Specialty Start Date End Date Brandee Fuchs, MAVIS PCP - General Family Medicine 01/17/19 [address] [place], [place] [address] documented as of this encounter
--- OUTSIDE RECORDS SUMMARY | 2022-07-09 01:15 | XMS_ITS | Encounter Summary ---
:1975 Author Organization [facility] [place] [address] Care Team Providers Name Role Phone DanielBrandee huynh Obdulia GAMBLE Primary Care Provider Reason for Visit Reason Comments Medication Management Patient Education Encounter Details Date Type Department Care Team Description 04/10/2020 Specialty Pharmacy [place] [facility] [place]ekha Coburn [facility] Jessie [facility] Managemen t; Patient [facility] [place] [address] Social History Tobacco Use Types Packs/Day Years Used Date Former Smoker Cigarettes 0.5 11 Quit: 01/05/20 03 Smokeless Tobacco: Never Used Alcohol Use Standard Drinks/Week Comments No 0 (1 standard drink = 0.6 oz pure alcoho l) Sex Assigned at Date Recorded Not on file documented as of this encounter Progress Notes Rekha Villanueva RPH - 04/10/2020 4:32 PM EDT Specialty Pharmacy Consultation; Rekha Villanueva RPH Comprehensive Medication Management (CMM) Malu De Diagnosis: Asthma Therapy Start Date: TBD (New Start) Contact in person or via telephone: Telephone Ms. Malu De is a 44 y.o. (1975) female who was contacted in regard to specialty medication. Spoke with patient regarding Dupixent. A review of the medication therapy was performed. The medication was filled as scheduled, and all medication related questions and concerns were addressed. [facility] will follow up with the patient 5-7 days prior to next refill. Is the patient willing to proceed with the Clinical Assessment? Yes Summary and Recommendations: Malu De is a pleasant 44 y.o. female who was contacted for a consultation on Dupixent. Despite being nervous about injections and having no prior injection experience, the patient declined in office training on the basis of travel time to [facility]. She was encouraged to watch instructive videos on Dupixent injections online and to reach out to schedule in office training should she feel uncomfortable after viewing. Currently the patient is going through a difficult time due to the loss of her daughter, but she feels she is adequately supported at this time. Given the recent loss, the patient health questionnaire was not performed during the consultation. Loading and maintenance doses were covered along with the refill schedule. The patient was able to verbalize understanding of the directions, storage requirements, clinical rationale, and possible adverse events of the medication including the risk of infection and to monitor her eyes for any abnormal symptoms. Proper injection technique was reviewed including rotation of injection sites, storage, and safe disposal of injection device. Allergies, medications, and medical conditions were reviewed at length including review for possible contraindications and interactions. The patient was informed of the variety of services that the Specialty Pharmacy will provide to them as one of our patients. Clinic follow-up needed: Patient may reach out for in office training Allergies and Drug intolerance: Allergies Allergen Reactions ??? Acetaminophen Mouth blisters ??? Amitriptyline Anxiety ??? Cyclobenzaprine Other (See Comments) Small blisters ??? Cymbalta [Duloxetine] Anxiety ??? Dulera [Mometasone-Formoterol] Other (See Comments) Mental alterations ??? Gabapentin Other (See Comments) [place] like body was shaking, nerves vibrating, hands went numb ??? Indomethacin ??? Tramadol Other (See Comments) Anxiety, foggy head, unaware ??? Vicodin [Hydrocodone-Acetaminophen] Mouth blisters Special Dietary or Hydration Requirements: no There is no height or weight on file to calculate BMI. Medication Reconciliation Discrepancies (compared to [facility] med list) -None Medication List: Current Outpatient Medications Medication Sig Dispense Refill ??? dupilumab (Dupixent) 300 mg/2 mL Syringe Inject 600 mg subcutaneously once for 1 dose. Then inject 300mg subcutaneously every 14 days 2 Syringe 0 ??? dupilumab (Dupixent) 300 mg/2 mL Syringe Inject 300 mg subcutaneously every 14 days. 2 Syringe 5 ??? predniSONE (Deltasone) 20 mg Tablet Take 40 mg daily x 5 days then 20 mg daily x 7 days. 17 tablet 0 ??? dexamethasone (Decadron) 4 mg Tablet Take 1 tablet by mouth daily. Take daily x 3 days after each iron infusion (Patient not taking: Reported on 04/08/2020) 6 tablet 0 ??? ipratropium-albuteroL (DUONEB) 0.5 [...] taking: Reported on 02/26/2020) 180 tablet 3 ??? albuterol (PROVENTIL) 2.5 [...] (NASACORT OR NASACORT OTC) 55 mcg Aerosol, [place] 2 sprays by Nasal route daily. No current facility-administered medications for this visit. Most Recent Vitals: Ht Readings from Last 1 Encounters: 03/13/20 152.4 cm (5') Wt Readings from Last 3 Encounters: 03/13/20 91.2 kg (201 lb) 02/26/20 83.9 kg (185 lb) 02/21/20 89.9 kg (198 lb 3.1 oz) Temp Readings from Last 3 Encounters: 02/28/20 36.4 ??C (97.5 ??F) (Temporal) 02/21/20 36.5 ??C (97.7 ??F) (Temporal) 02/07/20 36.4 ??C (97.5 ??F) (Temporal) BP Readings from Last 3 Encounters: 02/28/20 142/51 02/21/20 112/72 02/07/20 110/69 Pulse Readings from Last 3 Encounters: 02/28/20 69 02/21/20 82 02/07/20 81 Pertinent Lab values: Lab Results Component Value Date NA 140 09/13/2016 K 4.1 09/13/2016 CL 104 09/13/2016 CO2 23 09/13/2016 BUN 13 09/13/2016 CREATININE 0.81 09/13/2016 GLUCOSE 106 09/13/2016 CALCIUM 8.9 09/13/2016 Lab Results Component Value Date ALT 8 09/13/2016 AST 13 09/13/2016 ALKPHOS 95 09/13/2016 BILITOT 0.2 09/13/2016 BILIDIR <0.1 09/13/2016 ALBUMIN 4.5 09/13/2016 PROT 7.3 09/13/2016 Lab Results Component Value Date WBC 8.6 12/14/2019 HGB 11.0 (L) 12/14/2019 HCT 39.5 12/14/2019 MCV 74.1 (L) 12/14/2019 PLATELET 475 (H) 12/14/2019 No results found for: HA1C There is no immunization history on file for this patient. PFT Results Office Visit from 12/14/2019 in [place] at [facility] PFT Results FEV1 (L) 1.63 liters FEV1 (%) 61 FVC (L) 2.2 liters FVC (%) 67 FEF 25-75 (L) 1.21 FEF 25-75 (%) 42 FEV1/FVC (absolute) 0.74 FEV1/FVC (%) 74.1 % Additional PFT Data (if needed) Assessment and Recommendations: Title Drug Treatment Outcomes No data found in the last 10 encounters. Reviewed in detail with patient: Dose appropriateness based on recommended standard dosing Current medication list including OTC medications Medication and disease problems Allergies Comorbid conditions/ Problem List Past adverse events if any Special needs of the patient including physical and cognitive limitations Goals of therapy and management strategies Warnings, precautions, and contraindications Side effects Drug-drug and drug-food interactions Administration instructions including dose, frequency and method Handling, storage, and disposal Verifying expiration dates on products before use Rotating medication inventory to use oldest product first Relevant lab data Patient verbalizes understanding and is able to read-back instructions on self-administration/injection, proper storage, drug stability, importance of adherence and management strategies, side effect avoidance and mitigation strategies, and interruptions in therapy: Yes Physical and Cognitive Assessment: Functional limitations identified: no Cognitive limitations identified: no Concern regarding orientation/memory: no Concern with reasoning/judgement: no Is patient a fall risk: no Other needed information: yes - Patient currently grieving her child after losing her in a car accident Social Assessment: Does the patient have a primary healthcare sales representative? no Patient has emergency contact on file: Yes Does patient need referral to social service worker: No Does patient need referral to advocacy group: No Home Health Assessment: Is the patient in a safe home environment? Yes Is the patient able to store their medication as directed? Yes Does the patient have a support network at home? Yes Reviewed potential home safety hazards with patient: Yes Economic Assessment: Patient is agreeable to medication copay: Yes Copay Amount: 3.00 Day Supply: 14 Date Needed: TBD Copay assistance required: no Therapy Assessment: Current Medication Dosing/Route/Frequency: Dupixent 600 mg subcutaneously for one dose and then 300 mg every 14 days thereafter Appropriate Therapy: Yes If applicable, advised to Bring Epinephrine to Office Visit: No If applicable, advised of Observation Period Post Administration: No Number of Courses of Oral Corticosteroids in Past Year: Just started prednisone taper, goes on multiple regimens per year Current Oral Corticosteroid Regimen: Prednisone 40 mg x 5 days then 20 mg x 7 days SMILEY Use: 5-6 nebulizer treatments per day on average Patient's Problems/Needs: Nervous about injection process; counseling provided and instructive videos will be watched to determine if she feels comfortable to do first injection at home Expected Outcome: Initiation of therapy Patient Goals: Patient's specific desired goal: Goals ??? Home Medication Compliance and Understanding (pt-stated) Reduction in use of SMILEY to 1-2 nebulizer treatments per day. Measured by: Patient report Time frame: 6 months Care Plan Reviewed and Approved by both Pharmacist and Patient: Yes Interventions (if applicable): No Additional care/services needed: no Educational information or adherence tools provided? Yes Additional equipment/supplies required: No Monitoring requirements for prescribed medication: CBC, CMP, Eye exams,infection Pharmacist follow up needed: Yes Patient Satisfaction with care/services provided: Yes Informed patient of specialty pharmacy services: Yes -Patient will be provided with welcome packet: Yes Date to be provided: TBD Delivery Method: Mail -Patient will be provided with Rights & Responsibilities: Yes Date to be provided: TBD Delivery Method: Mail -Patient is aware a licensed pharmacist is available 24 hours a day, 7 days a week to discuss medication-related questions or concerns: Yes -Patient verbalizes understanding of the common side effect profile of their medication. The patientis able to call 911 or seek urgent care if signs/symptoms of allergy or harmful adverse reactions occur: Yes Patient understands no changes to current drug regimen were made at the appointment and that [facility] is providing recommendations (summary located at top of note) for provider review and follow up. Rekha Villanueva RPH 04/10/20 4:33 PM .spec documented in this encounter Plan of Treatment Not on filedocumented as of this encounter Goals Goal Patient Goal Associated Recent Patient-Stated? Author Type Problems Progress Home Medication Patient Yes Irish, Compliance and Facing Erna Costa Action Plan [facility] Note: Formatting of this note might be d ifferent from the original. Reduction in use of SMILEY to 1-2 nebulize r treatments per day. Measured by: Patient report Time frame: 6 months documented as of this encounter Visit Diagnoses Not on filedocumented in this encounter Care Teams Entry Specialist Relationship Specialty Start Date End Date Brandee Fuchs APRN PCP - General Family Medicine 01/17/19 Jeanette [address] [place] [address] documented as of this encounter
--- OUTSIDE RECORDS SUMMARY | 2022-07-09 01:15 | XMS_ITS | Encounter Summary ---
:1975 Author Organization [facility] [place] [address] Care Team Providers Name Role Phone Daniellino Brandee Steiner APRN Primary Care Provider Reason for Referral Psychiatric (Routine) - Closed Specialty Diagnoses / Procedures Referred By Contact Refer red To Contact [facility] Diagnoses Fibromyalgia PNE - 15 min TOV *okay to schedule Rick Reynaga Dana M, E, MD [facility] [place] [address] Fax: Referral ID Status Reason Start Date Expiration Date Visits V isits Requested Authorized [id number] Closed Consult, 11/29/2019 11/28/2020 1 1 Test & Treat Reason for Visit Reason Comments Pain Management new patient, fibromyalgia Consultation (Routine) - Specialty Diagnoses / Procedures Referred By Contact Refer red To Contact [facility] Diagnoses Hypermobility arthralgia Fibromyalgia Pain - Fibromyalgia/ hypermobility arthralgia/ ?low dose suboxone *attending/fellow Berkley Hernández APRN [facility] [place] [address] [place] [address] Phone: Fax: Referral ID Status Reason Start Date Expiration Date Visits V isimoe Requested Authorized [id number] Consult, 11/02/2019 11/01/2020 1 1 Test & Treat Encounter Details Date Type Department Care Team Description 11/29/2019 Office Visit [facility] at , [place] [facility] [address] [place] [address] Fibromyalgia [facility] Rick Reynaga MD [facility] [address] [facility] [place] [address] Social History Tobacco Use Types Packs/Day Years Used Date Former Smoker Cigarettes 0.5 11 Quit: 01/05/20 03 Smokeless Tobacco: Never Used Alcohol Use Standard Drinks/Week Comments No 0 (1 standard drink = 0.6 oz pure alcoho l) Sex Assigned at Date Recorded Not on file documented as of this encounter Last Filed Vital Signs Vital Sign Reading Time Taken Comments Blood Pressure 120/70 11/29/2019 2:32 PM EST Pulse 77 11/29/2019 2:32 PM EST Temperature - - Respiratory Rate - - Oxygen Saturation 99% 11/29/2019 2:32 PM EST Inhaled Oxygen Concentration - - Weight 83.9 kg (185 lb) 11/29/2019 2:32 PM EST Height 154.9 cm (5' 1) 11/29/2019 2:32 PM EST Body Mass Index 34.96 11/29/2019 2:32 PM EST documented in this encounter Progress Notes iRck Reynaga MD - 11/29/2019 2:30 PM EST [facility] Initial Consultation Note DOS: 11/29/19 : 1975 Malu De is a 44 y.o. year old female with a PMH including fibromyalgia, joint hypermobility syndrome, who presents to the pain clinic today at the referral of Berkley Hernández APRN [facility] [place] [address] for consultation regarding chronic diffuse pain CC: Chief Complaint Patient presents with ??? Pain Management new patient, fibromyalgia HPI: Malu De is a 44 yo woman with a history of fibromyalgia and joint hypermobility syndrome whopresents for initial evaluation of chronic diffuse pain involving her neck, back, hips, and knees. Pain Description: Duration - Since she was 11 years old Location - neck, back, hips, knees Quality - Achy Weakness - None Numbness/Tingling - None Pain score: 8/10 today, 10/10 at worst, 6/10 at best, 7/10 on average (all in past week) Alleviating factors: None Aggravating factors: Heat, cold, movement, prolonged sitting Prior Treatments/Medications (Per prior notes and patient): Medications : Topicals - None NSAIDs - Ibuprofen and Aleve which were ineffective Acetaminophen - Unable to tolerate: caused mouth blisters Antidepressants - Cymbalta: exacerbated Antieptileptics - Gabapentin which she stopped due to it causing rigors and hand numbness Muscle Relaxants - Flexeril and others caused blisters Opioids - Vicodin caused mouth blisters Steroids - None PT: Attending now, making pain worse Modalities: None Surgery: None Injections: None Chiropractic: Went as a kid, did not help Acupuncture: None Mental Health: None Of note, patient has only tried Cymbalta for her fibromyalgia. Tried gabapentin which she did not tolerate, elected to not try lyrica due to similar mechanism of action as gabapentin. Has never tried Savella. She notes that her pain as gotten progressively worse over the past 5 years which is what prompted her to seek further care. No trauma or inciting event that she can recall. ROS: Constitutional: No unintentional weight loss or gain, fevers, chills, or night sweats. HENT: No recent hearing changes. No difficulty swallowing. Eyes: No recent vision changes. Respiratory: No cough or shortness of breath. +asthma Cardiovascular: No chest pain or syncope. GI: No diarrhea, nausea, vomiting, or constipation. : No dysuria, hesitancy, or urgency. No incontinence. Musculoskeletal: No muscle weakness. +joint pain Skin: No rashes or lesions. Neurologic: No numbness/tingling. No difficulty with balance. Psychiatric: Mood dysphoric. No SI/HI. Sleep is poor. Heme/Lymph/Imm: No easy bleeding or brusing. PMH/PSH: Patient Active Problem List Diagnosis Code ??? Asthma J45.909 Past Medical History: Diagnosis Date ??? Asthma ??? Chronic pain ??? Fatigue ??? Fibromyalgia ??? GERD (gastroesophageal reflux disease) ??? GERD (gastroesophageal reflux disease) Past Surgical History: Procedure Laterality Date ??? SECTION ??? OVARIAN CYST SURGERY FAMILY HISTORY: Family History Problem Relation Age of Onset ??? Allergies Mother ??? Heart Disease Father ??? Alcohol Use Disorder Father ??? Liver Disease Father SOCIAL HISTORY: Social History Socioeconomic History ??? Marital status: [...] Last attempt to quit: 01/04/2003 Years since quittin.9 ??? Smokeless tobacco: Never Used Substance and Sexual Activity ??? Alcohol use: No ??? Drug use: No ??? Sexual activity: Not on file Lifestyle ??? Physical activity Days per week: Not on file Minutes per session: Not on file ??? Stress: Not on file Relationships ??? Social connections Talks on phone: Not on file Gets together: Not on file Attends denominational service: Not on file Active member of [...] Social History Narrative ??? Not on file FUNCTIONAL STATUS: Independent in all ADLs. MEDICATIONS: Current Outpatient Medications: ??? polyethylene glycol (Miralax) 17 gram/dose Powder, as needed., Disp: , Rfl: ??? cholecalciferol, Vitamin D3, 1,000 unit Capsule, Take 1,000 Units by mouth daily., Disp: , Rfl: ??? ondansetron (ZOFRAN) 4 mg Tablet, Take 1 tablet by mouth 2 times daily as needed for Nausea. Take 1 hour prior to oral iron., Disp: 30 tablet, Rfl: 3 ??? multivitamin (THERAGRAN) Tablet, Take 1 tablet by mouth daily., Disp: , Rfl: ??? folic acid (FOLVITE) 1 mg Tablet, Take 1 mg by mouth daily., Disp: , Rfl: ??? ferrous sulfate 325 mg (65 mg iron) Tablet, Take 1 tablet by mouth 2 times daily (after meals). (Patient taking differently: Take 325 mg by mouth three times a week. Takes 1 tab every other day), Disp: 180 tablet, Rfl: 3 ??? albuterol (PROVENTIL) 2.5 mg /3 mL (0.083 %) Solution for Nebulization, Take 2.5 mg by nebulization as needed., Disp: , Rfl: 0 ??? montelukast (SINGULAIR) 10 mg Tablet, Take 10 mg by mouth daily., Disp: , Rfl: 0 ??? omeprazole (PRILOSEC) 40 mg Capsule, Delayed Release(E.C.), Take 40 mg by mouth daily., Disp: , Rfl: 0 ??? BREO ELLIPTA 200-25 mcg/dose Disk with Device, Inhale 1 puff into the lungs daily., Disp: , Rfl:1 ??? SPIRIVA RESPIMAT 1.25 mcg/actuation Mist, Inhale 2 puffs into the lungs daily., Disp: , Rfl: 1 ??? triamcinolone (NASACORT OR NASACORT OTC) 55 mcg Aerosol, [place], 2 sprays by Nasal route daily., Disp: , Rfl: ALLERGIES: Allergies Allergen Reactions ??? Acetaminophen Mouth blisters ??? Amitriptyline Anxiety ??? Cyclobenzaprine Other (See Comments) Small blisters ??? Cymbalta [Duloxetine] Anxiety ??? Gabapentin Other (See Comments) [place] like body was shaking, nerves vibrating, hands went numb ??? Indomethacin ??? Vicodin [Hydrocodone-Acetaminophen] Mouth blisters PHYSICAL EXAM: General: Patient is seated comfortably in NAD, well-groomed. HEENT: Head atraumatic, EOMI. Respiratory: Breathing comfortably on RA. Cardiovascular: no swelling Abdominal: non-distended Skin: No appreciable rashes or skin breakdown Psych: Appropriate affect, A&Ox3 , answers questions appropriately Musculoskeletal: Inspection - No gross appendicular or axial deformities Palpation - The patient demonstrates exquisite tenderness to palpation along the cervical, thoracic, and lumbar paraspinal musculature. She is also tender to palpation of the trapezius bilaterally ROM - normal in spine and shoulders Neurologic: member certification manager - grossly intact Reflexes - 2+ and symmetric in bilateral biceps, triceps, brachioradiali, patellae, and Achilles. No ankle clonus. Babinkski downgoing bilaterally. Motor - 5/5 in all planes of motion in all four extremities. Sensation - Intact to light touch throughout all four extremities Gait/Station: Normal gait. No loss of balance noted. Transitions from exam room chair to table without difficulty. TESTS/IMAGING: XRAY EXAMINATION: XR CERVICAL THORACIC AND LUMBAR SPINE AP AND LAT ?? CLINICAL HISTORY: neck pain + upper back pain + low back pain ?? TECHNIQUE: ?? COMPARISON: None ?? FINDINGS: Cervical spine- C1 to bottom of C6 are visualized. [...] cervical lordosis. 3. L5-S1 minimal facet arthropathy. A/P: In summary, Ms. De is a 44 yo woman with fibromyalgia, diffuse pain that has been getting progressively worse over the past 5 years. Reports difficulty participating in recreational activities and prolonged sitting. -Patient has already tried cymbalta and gabpentin. Not interested in lyrica due to similar MOA of action as gabapentin. Would recommend to PCP a trial of Savella. May use the following titration schedule- Day 1: 12.5mg daily, Day 2-3: 12.5mg BID, Day 4-7: 25mg BID, After day 7: 50mg BID -Should Savella not work, would recommend PCP consider a trial of low dose naltrexone (Instructions for commencing low dose naltrexone therapy are the following: Take one 1.5mg capsule QD for 7 days. If pain relief is unsatisfactory then increase to 2 1.5mg capsules per day. After 14 days if pain relief is inadequate then increase to 3 capsules per day). -May consider addition of a prescription strength NSAID such as meloxicam to assist with pain control -Patient endorsing some dysphoria, hopelessness about her pain and functional limitations. I will beplacing a referral to our pain psychologist Dr. Jodi Mckeon to assist patient with coping strategies2 Thank you for allowing us the opportunity to participate in Ms. Espinosa's care. Rick Reynaga MD [facility] Pain Medicine Fellow Seen and discussed with supervising attending Dr. Springer who is in agreement with the above assessment and plan. CC: Berkley Hernández, [facility] [place] [address] Attending Note: Patient is a 44 yo female with diffuse body pain, fibromyalgia with reassuring physical examination today. She has tried gabapentin and cymbalta without significant pain relief. Pain is debilitating and limiting physical activity. Had a lengthy discussion with patient that continuing PT will help alleviate her symptoms, she is in agreement. She also reports low energy and sometimes lack of motivation. She would like to explore other options such as speaking with our pain pyschologist colleague Dr Mckeon. She will be referred for a separate appointment. As far as oral medications, we will start with FDA approved Savella, if this fails to provide significant pain relief, then we can initiate low dose naltrexone for additional pain relief. Please see fellow's note for details. Jessi Springer MD Attending physician Pain Management documented in this encounter Miscellaneous Notes Addendum Note - Jessi Springer MD - 11/29/2019 2:30 PM EST Addended by: JESSI SPRINGER on: 11/30/2019 08:20 AM Modules accepted: Level of Service documented in this encounter Plan of Treatment Scheduled Referrals Name Type Priority Associated Diagnoses Order S chedule Referral to Outpatient Referral Routine Fibromyalgia Ordered: Psychology 11/29/2019 documented as of this encounter Visit Diagnoses Diagnosis Fibromyalgia Mylagia and myositis, unspecified documented in this encounter Care Teams Endo Tech Relationship Specialty Start Date End Date Brandee Fuchs, CHEMICAL PRODUCTION TECHNICIAN PCP - General Family Medicine 01/17/[address] [facility] [address] [place] [address] documented as of this encounter
--- OUTSIDE RECORDS SUMMARY | 2022-07-09 01:15 | XMS_ITS | Encounter Summary ---
:1975 Author Organization [facility] [place] [address] Care Team Providers Name Role Phone Brandee Fuchs Obdulia GAMBLE Primary Care Provider Reason for Visit Reason Comments IV Medication Venofer, 3rd of 3 doses Encounter Details Date Type Department Care Team Description 02/28/2020 [facility] anemia type [place], [place] [phone] Social History Tobacco Use [...] Sign Reading Time Taken Comments Blood Pressure 142/51 02/28/2020 8:33 AM EDT Pulse 69 02/28/2020 8:33 AM EDT Temperature 36.4 ??C (97.5 ??F) 02/28/2020 8:33 AM EDT Respiratory Rate 20 02/28/2020 8:33 AM EDT Oxygen Saturation 98% 02/28/2020 8:33 AM EDT Inhaled Oxygen Concentration - - Weight - - Height - - Body Mass Index - - documented in this encounter Progress Notes Apurva Presley RN - 02/28/2020 8:30 AM EDT INFUSION THERAPY ADMINISTRATION NOTES DIAGNOSIS: Iron Deficiency REASON FOR VISIT: Venofer SUBJECTIVE Malu offers no complaints. OBJECTIVE IV ACCESS: PIV Pre administration: Chemotherapy orders independently verified for drug name, route, and dosage per patient's height, weight and BSA by Apurva Presley RN and On-site pharmacist. REACTIONS (DESCRIPTION, TIME, [...] Date Dose Rate Site dexamethasone (DECADRON) injection 4 Given 02/28/2020 8:47 AM ED T 4 mg mg 4 mg, Intravenous, ONCE, 1 dose, On Rachel 02/28/20 at 0845 iron sucrose (Venofer) 300 mg in New Bag 02/28/2020 8:58 AM ED T 300 mg 76.7 mL/hr sodium chloride 0.9% 115 mL 300 mg, Intravenous, ONCE, 1 dose, On Rachel 02/28/20 at 0900, Administer over 90 Minutes, Week 1 Infusion, Outpatient Transfusion ondansetron (ZOFRAN) injection 4 mg Given 02/28/2020 8:48 AM EDT 4 mg 4 mg, Intravenous, ONCE, 1 dose, On Rachel 02/28/20 at 0845 documented in this encounter Care Teams Career Coordinator Relationship Specialty Start Date End Date Brandee Fuchs, WELDER GUN PCP - General Family Medicine 01/17/19 [address] [place] [address] documented as of this encounter
--- OUTSIDE RECORDS SUMMARY | 2022-07-09 01:15 | XMS_ITS | Encounter Summary ---
:1975 Author Organization [facility] [place] [address] Care Team Providers Name Role Phone DanielBrandee huynh Obdulia GAMBLE Primary Care Provider Reason for Referral Diagnostic Test (Routine) - Closed Specialty Diagnoses / Procedures Referred By Contact Refer red To Contact Sleep Center Diagnoses Snoring Emma Johnson MD [facility] Sleep Medicine Procedures PRG POLYSOM 6+ YRS SLEEP W 4+ ADDL DARIO ATTND [facility] [address] [address] [place] [address] Referral ID Status Reason Start Date Expiration Date Visits V isits Requested Authorized [id number] Closed Test Only 04/17/2020 04/17/2021 1 1 Encounter Details Date Type Department Care Team Description 04/17/2020 Orders Only Sleep Center at Emma Johnson MD Snoring (Primary Dx) [facility] [address] [place] SLE[place]ORD[place] [id number] CENTER [phone] [place], [place] [address] (Wo rk) Social History Tobacco Use Types Packs/Day Years Used Date Former Smoker Cigarettes 0.5 11 Quit: 01/05/20 03 Smokeless Tobacco: Never Used Alcohol Use Standard Drinks/Week Comments No 0 (1 standard drink = 0.6 oz pure alcoho l) Sex Assigned at Date Recorded Not on file documented as of this encounter Plan of Treatment Scheduled Referrals Name Type Priority Associated Diagnoses Order S chedule Referral to Sleep Outpatient Referral Routine Snoring Ord ered: Disorders Center 04/17/2020 documented as of this encounter Goals Goal Patient Goal Associated Recent Patient-Stated? Author Type Problems Progress DH Home Medication Patient Yes Irish, Compliance and Facing Rekha Roman Understanding Action Plan [facility] Note: Formatting of this note might be d ifferent from the original. Reduction in use of SMILEY to 1-2 nebulize r treatments per day. Measured by: Patient report Time frame: 6 months documented as of this encounter Visit Diagnoses Diagnosis Snoring - Primary Other dyspnea and respiratory abnormalit y documented in this encounter Care Teams High School Guidance Counselor Relationship Specialty Start Date End Date Brandee Fuchs, REHABILITATION CONSULTANT PCP - General Family Medicine 01/17/19 [address] [place] [address] documented as of this encounter
--- OUTSIDE RECORDS SUMMARY | 2022-07-09 01:15 | XMS_ITS | Encounter Summary ---
:1975 Author Organization [facility] [place] [address] Care Team Providers Name Role Phone Brandee Fuchs APRN Primary Care Provider Encounter Details Date Type Department Care Team Description 03/13/2020 Telephone Pain and Spine Azra lakhani at [facility] [place], Renetta Alaniz, [place] [address] Social History Tobacco Use Types Packs/Day [...] on filedocumented in this encounter Care Teams Dipper Operator Relationship Specialty Start Date End Date Brandee Fuchs, MAVIS PCP - General Family Medicine 01/17/19 [address] [place] [address] documented as of this encounter
--- OUTSIDE RECORDS SUMMARY | 2022-07-09 01:15 | XMS_ITS | Encounter Summary ---
:1975 Author Organization [facility] [place] [address] Care Team Providers Name Role Phone Brandee Fuchs APRN Primary Care Provider Reason for Referral Physical Therapy (Routine) - Closed Specialty Diagnoses / Procedures Referred By Contact Refer red To Contact Diagnoses Hypermobility arthralgia Arthralgia, unspecified joint Berkley Hernández APRN Physical Therapy, [place] [address] [address] [place] [address] Phone: Fax: Referral ID Status Reason Start Date Expiration Date Visits V isits Requested Authorized [id number] Closed Evaluate and 09/21/2019 03/19/2020 12 12 Treat Encounter Details Date Type Department Care Team Description 09/21/2019 Office Visit Rheumatology at [facility] Berkley Hernández, Arthralgia, unspecified join t (Primary Dx); [facility] MAVIS Hypermobility arthralgia; [facility] Chronic midline low back kacey n without sciatica; [place] [address] Center Sacroiliac pain [phone] [place], [place] [address] Social History Tobacco Use Types [...] Sign Reading Time Taken Comments Blood Pressure 110/73 09/21/2019 1:54 PM EST Pulse 75 09/21/2019 1:54 PM EST Temperature 36.2 ??C (97.2 ??F) 09/21/2019 1:54 PM EST Respiratory Rate - - Oxygen Saturation 98% 09/21/2019 1:54 PM EST Inhaled Oxygen - - Concentration Weight 88 kg (194 lb) 09/21/2019 1:54 PM wearing winte r coat EST and boots Height 154.9 cm (5' 1) 09/21/2019 1:54 PM EST Body Mass Index 36.66 09/21/2019 1:54 PM EST documented in this encounter Patient Instructions Patient InstructionsBerkley Hernández APRN - 09/21/2019 2:00 PM EST I will send the MRI order to [facility] I will send gabapentin with instructions to Mely Yadav. Keep me updated on how you do with this. I will send another referral to PT documented in this encounter Progress Notes Berkley Hernández APRN - 09/21/2019 2:00 PM EST Rheumatology Progress Note HPI / Rheum Hx: -FMS, hypermobility, ?EDS type III -neck pain, low back pain, polyarthralgia -was supposed to have sleep study -RF, CCP, HLA-B27 neg -EMG wnl 2017, skin bx at that time as well but no reported path results -chronic LATHA, txed with infusion which helped but poor tolerance Interval Hx The tens unit made things worse Doing [...] like to go ahead with MRI, at [facility] At first didn't feel tens unit so kept turning it up, then became extremely sensitive to touch Like PT until they overdid did with machines [facility] [place] Past 06/14/19 Malu De is a 43 [...] and muscle relaxants, for symptomatic pain relief, delphine felt minimal pain relief with these agents.?? She was subsequently referred to the Rheumatology Clinic at [facility] for further evaluation. ROS: General reports random low grade fevers between 99 and 101, last 2-3 days, she gets really tired andgoes away after a few days; for last 3-4 years HEENT (-)dry eye, dry mouth (-) oral or nasal ulcers CVS (-)chest pain, (-)palpitations Pulm (+) follows with pulm for uncontrolled asthma, dxed with asthma at 16yo, which happened at the same time she started with chronic pain; she does 5-12 nebs per day GI +nausea, (-)abdominal pain, (-)constipation, diarrhea (-)hematuria, (-)dysuria, (-)frequency MS See HPI Endo (-)thyroid disorders, (-)diabetes Neuro (+) sometimes paresthesias in her elbow Skin (-)Raynaud's, (-)ulcers, (-)rashes Psych (-) anxiety, depression PAST MEDICAL HISTORY: Asthma Severe vitamin D deficiency S/p (2003) S/p tubal ligation (2003) S/p left oophorectomy (2003) ?? MEDICATIONS: I reviewed pt's medication entries on electronic record. ?? ALLERGIES: NKDA ?? SOCIAL HISTORY: ?? Cigarettes: 1/2 ppd x 12 years (quit at the age of 28). Pt denied any use of alcohol or illicit drugs.?? She was single, with two children.?? She was currently living with her boyfriend who smokes.?? 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 ?? FAMILY HISTORY: Mother - Diabetes mellitus II; alive at the age of 60. ?? Father - Chronic alcoholism; of heart and liver failure at the age of 50. Physical Exam: BP 110/73 Pulse 75 Temp 36.2 ??C (97.2 ??F) (Oral) Ht 154.9 cm (5' 1) Wt 88 kg (194 lb) Comment: wearing winter coat and boots SpO2 98% BMI 36.66 kg/m?? General: AAOx3, NAD, pleasant Neck: Supple, no lymphadenopathy, full range of motion. Cardiovascular: RR, (-)murmurs, rubs, or gallops. Lungs: Clear to auscultation bilaterally. (-)R/R/W Prominent allodynia, including at SIJ Hypermobility findings: No thumb to forearm, no knee hyperextension, no palm to floor +Hypermobility at 5th digits and elbows Does not meet Beighton's Criteria Studies: 06/11/19 SIJ xr nl at OSH [...] onset of all of this and neg. No synovitis on exam. Multiple fms tenderpoints. No pso/ibd/inflammatory eye sxs/pattern of inflammatory back pain. Prior meds that were ineffective of not tolerated: cyclobenzaprine, elavil, cymbalta, meloxicam, indomethacin, tramadol Pt would like to go through with MRI of SIJ, discussed that my suspicion for inflammatory back dz islow. Order sent to [facility]. SIJ xr wnl in June 2019. Discussed benefits of pt in the setting of hypermobility, fms. Referral back to PT, which she found helpful though needs to be careful not to overexert. Consider pool therapy in the future. Start on gabapentin 300mg nightly, increase as tolerated every week until taking 300mg tid and then pt to check in with me. Discussed possible se/adrs of this medication. Pt referred for sleep study by claire andersen. Consider trial of prescription nsaids (besides indomethacin) in the future RTC in 4 months documented in this encounter Plan of Treatment Scheduled Referrals Name Type Priority Associated Diagnoses Order S chedule Referral to Outpatient Referral Routine Hypermobility Ordered : Physical Therapy arthralgia 09/21/2019 Arthralgia, unspecified joint documented as of this encounter Visit Diagnoses Diagnosis Arthralgia, unspecified joint - Primary Chronic midline low back pain without sc iatica Sacroiliac pain Disorders of sacrum documented in this encounter Care Teams Hl7 Interface Developer Relationship Specialty Start Date End Date Brandee Fuchs APRN PCP - General Family Medicine 01/17/19 [address] [place] [address] documented as of this encounter
--- OUTSIDE RECORDS SUMMARY | 2022-07-09 01:15 | XMS_ITS | Encounter Summary ---
:1975 Author Organization [facility] [place] [address] Care Team Providers Name Role Phone DaniellinoBrandee APRN Primary Care Provider Reason for Referral Consultation (Routine) - Specialty Diagnoses / Procedures Referred By Contact Refer red To Contact Pain and Spine Center Diagnoses Hypermobility arthralgia Fibromyalgia Pain - Fibromyalgia/ hypermobility arthralgia/ ?low dose suboxone *attending/fellow Berkley Hernández APRN [facility] [address] [place] [address] Phone: Fax: Referral ID Status Reason Start Date Expiration Date Visits V isits Requested Authorized [id number] Consult, 11/02/2019 11/01/2020 1 1 Test & Treat Encounter Details Date Type Department Care Team Description 11/02/2019 Orders Only Rheumatology at [facility] Berkley Hernández Hypermobiyo arthaura; [facility] MAVIS Chronic midline low back pain without sc iatica; [place] [address] Center [phone] [place], [place] [address] Social History Tobacco Use Types [...] Associated Diagnoses Order S chedule Referral to Pain Outpatient Referral Routine Hypermobility Ord ered: Management arthralgia 11/02/2019 Fibromyalgia documented as of this encounter Visit Diagnoses Diagnosis Hypermobility arthralgia Pain in joint, site unspecified Chronic midline low back pain without sc iatica Fibromyalgia Mylagia and myositis, unspecified documented in this encounter Care Teams Knitter Operator Relationship Specialty Start Date End Date Brandee Fuchs APRN PCP - General Family Medicine 01/17/19 [address] [place] [address] documented as of this encounter
--- OUTSIDE RECORDS SUMMARY | 2022-07-09 01:15 | XMS_ITS | Encounter Summary ---
:1975 Author Organization [facility] [place] [address] Care Team Providers Name Role Phone Brandee Fuchs APRN Primary Care Provider Encounter Details Date Type Department Care Team Description 01/22/2020 Telephone Pain and Spine Azra lakhani at [facility] [address] Social History Tobacco Use Types Packs/Day Years Used Date Former Smoker Cigarettes 0.5 11 Quit: 01/05/20 03 Smokeless Tobacco: Never Used Alcohol Use Standard Drinks/Week Comments No 0 (1 standard drink = 0.6 oz pure alcoho l) Sex Assigned at Date Recorded Not on file documented as of this encounter Miscellaneous Notes Telephone Encounter - Keyona Early - 01/22/2020 9:44 AM EDT Left message for patient to call back [phone]. Patient needs to be scheduled for [facility] (for 90 minutes) with Dr. Mckeon around 01/31/20. Please also add questionnaires. Appt note: PNE documented in this encounter Plan of Treatment Not on filedocumented as of this encounter Visit Diagnoses Not on filedocumented in this encounter Care Teams Help Desk Assistant Relationship Specialty Start Date End Date Brandee Fuchs APRN PCP - General Family Medicine 01/17/19 [address] [place] [address] documented as of this encounter
--- OUTSIDE RECORDS SUMMARY | 2022-07-09 01:15 | XMS_ITS | Encounter Summary ---
:1975 Author Organization [facility] [place] [address] Care Team Providers Name Role Phone Brandee Fuchs APRN Primary Care Provider Reason for Visit Reason Onset Date Comments Medication Refill 06/26/2019 maria luisa Encounter Details Date Type Department Care Team Description 06/26/2019 Refill Hematology and Oncology at Ashok Bojorquez MD [facility] Kilo hurt HEMATOLOGY/[place] [address] [place] [address] [phone] (Wo rk) Social History Tobacco Use Types [...] on filedocumented in this encounter Care Teams Suppository Molding Machine Operator Relationship Specialty Start Date End Date Brandee Fuchs APRN PCP - General Family Medicine 01/17/19 [address] [place], [place] [address] documented as of this encounter
--- OUTSIDE RECORDS SUMMARY | 2022-07-09 01:15 | XMS_ITS | Encounter Summary ---
:1975 Author Organization [facility] [place] [address] Care Team Providers Name Role Phone Brandee Fuchs APRN Primary Care Provider Encounter Details Date Type Department Care Team Description 04/21/2020 Telephone Rheumatology at [facility] [place] [address] Social History Tobacco Use Types Packs/Day [...] Type Problems Progress Home Medication Patient Yes Manny Coburn and Facing Rekha Roman Understanding Action Plan [facility] Note: Formatting of this note might be d ifferent from the original. Reduction in use of SMILEY to 1-2 nebulize r treatments per day. Measured by: Patient report Time frame: 6 months documented as of this encounter Visit Diagnoses Not on filedocumented in this encounter Care Teams Bakery Supervisor Relationship Specialty Start Date End Date Brandee Fuchs APRN PCP - General Family Medicine 01/17/19 [address] [place], [place] [address] documented as of this encounter
--- OUTSIDE RECORDS SUMMARY | 2022-07-09 01:15 | XMS_ITS | Encounter Summary ---
:1975 Author Organization [facility] Address [address] [address] Care Team Providers Name Role Phone Brandee Fuchs APRN Primary Care Provider Reason for Visit Reason Onset Date Comments Results 04/10/2020 Scanned copy of CBC results to patient chart from her PCP and will send the original to Dr. Dubon. Encounter Details Date Type Department Care Team Description 04/10/2020 Telephone Pulmonology at [facility] Brenda Toth, Results (Scanned copy [facility] RN of CBC re sults to Drive patient chart from her [place] [phone] PCP and will send the [phone] Dubon.) Social History Tobacco Use Types Packs/Day Years [...] and Facing Rekha Roman Understanding Action Plan [facility] Note: Formatting of this note might be d ifferent from the original. Reduction in use of SMILEY to 1-2 nebulize r treatments per day. Measured by: Patient report Time frame: 6 months documented as of this encounter Visit Diagnoses Not on filedocumented in this encounter Care Teams Field Return Repairer Relationship Specialty Start Date End Date Brandee Fuchs, MAVIS PCP - General Family Medicine 01/17/19 [address] [place] [address] documented as of this encounter
--- OUTSIDE RECORDS SUMMARY | 2022-07-09 01:15 | XMS_ITS | Encounter Summary ---
:1975 Author Organization [facility] [place] [address] Care Team Providers Name Role Phone Brandee Fuchs APRN Primary Care Provider Reason for Visit Reason Onset Date Comments Follow-up 10/29/2019 Encounter Details Date Type Department Care Team Description 10/29/2019 Telephone [place]ology [place] [facility] Erica Garrison, [place] [address] Social History Tobacco Use Types Packs/Day Years Used Date Former Smoker Cigarettes 0.5 11 Quit: 01/05/20 03 Smokeless Tobacco: Never Used Alcohol Use Standard Drinks/Week Comments No 0 (1 standard drink = 0.6 oz pure alcoho l) Sex Assigned at Date Recorded Not on file documented as of this encounter Miscellaneous Notes Telephone Encounter - Erica Garrison RN - 10/29/2019 2:41 PM EST RTC and LM to RTC to nurse. No RTC after 2 days. Will close encounter for now. documented in this encounter Plan of Treatment Not on filedocumented as of this encounter Visit Diagnoses Not on filedocumented in this encounter Care Teams Estate Attorney Relationship Specialty Start Date End Date Brandee Fuchs APRN PCP - General Family Medicine 01/17/19 [address] [place] [address] documented as of this encounter
--- OUTSIDE RECORDS SUMMARY | 2022-07-09 01:15 | XMS_ITS | Encounter Summary ---
:1975 Author Organization [facility] Address [address] [place] [address] Care Team Providers Name Role Phone Brandee Fuchs APRN Primary Care Provider Reason for Visit Reason Onset Date Comments Other 02/21/2020 follow up Encounter Details Date Type Department Care Team Description 02/21/2020 Telephone Hematology/Oncology at Jamee Kovacs MSW Other (follow up) [facility] OFFICE OF CARE [address] [place] [address] (W ork) [id number] [phone] Social History Tobacco Use Types Packs/Day Years Used Date Former Smoker Cigarettes 0.5 11 Quit: 01/05/20 03 Smokeless Tobacco: Never Used Alcohol Use Standard Drinks/Week Comments No 0 (1 standard drink = 0.6 oz pure alcoho l) Sex Assigned at Date Recorded Not on file documented as of this encounter Miscellaneous Notes Telephone Encounter - Jamee Kovacs MSW - 02/21/2020 11:38 AM EDT Pt declined follow up call with [facility] PHYSICIAN offered during her infusion visit today. Asked that pt be reminded of RESEARCH PHYSICIAN availability should she want to talk. documented in this encounter Plan of Treatment Not on filedocumented as of this encounter Visit Diagnoses Not on filedocumented in this encounter Care Teams Recovery Engineer Relationship Specialty Start Date End Date Brandee Fuchs, MANAGER CAFE PCP - General Family Medicine 01/17/19 [address] [place] [address] documented as of this encounter
--- OUTSIDE RECORDS SUMMARY | 2022-07-09 01:15 | XMS_ITS | Encounter Summary ---
:1975 Author Organization [facility] [place] [address] Care Team Providers Name Role Phone DanielBrandee huynh Obdulia GAMBLE Primary Care Provider Encounter Details Date Type Department Care Team Description 04/21/2020 Telephone Pain and Spine Azra lakhani [place] [facility] [place] [address] Social History Tobacco Use Types Packs/Day Years Used Date Former Smoker Cigarettes 0.5 11 Quit: 01/05/20 03 Smokeless Tobacco: Never Used Alcohol Use Standard Drinks/Week Comments No 0 (1 standard drink = 0.6 oz pure alcoho l) Sex Assigned at Date Recorded Not on file documented as of this encounter Miscellaneous Notes Telephone Encounter - Keyona Early - 04/21/2020 11:55 AM EDT Left message requesting patient call back [phone]. Her appointment with Dr. Mckeon on 04/29 needs to be rescheduled - time is held on 04/28 and 04/30. documented in this encounter Plan of Treatment Not on filedocumented as of this encounter Goals Goal Patient Goal Associated Recent Patient-Stated? Author Type Problems Progress DH Home Medication Patient Yes Irish, Compliance and Facing Rekha Roman Understanding Action Plan [facility] Note: Formatting of this note might be d ifferent from the original. Reduction in use of SMILEY to 1-2 nebulize r treatments per day. Measured by: Patient report Time frame: 6 months documented as of this encounter Visit Diagnoses Not on filedocumented in this encounter Care Teams Humanities Professor Relationship Specialty Start Date End Date Brandee Fuchs APRN PCP - General Family Medicine 01/17/19 [address] [place] [address] documented as of this encounter
--- OUTSIDE RECORDS SUMMARY | 2022-07-09 01:15 | XMS_ITS | Encounter Summary ---
:1975 Author Organization [facility] [place] [address] Care Team Providers Name Role Phone Daniellino Brandee Lino GAMBLE Primary Care Provider Encounter Details Date Type Department Care Team Description 02/20/2020 Telephone Hematology/Oncology at [facility] Alyssa Darling [address] [place] [address] [phone] Social History Tobacco Use Types Packs/Day Years Used Date Former Smoker Cigarettes 0.5 11 Quit: 01/05/20 03 Smokeless Tobacco: Never Used Alcohol Use Standard Drinks/Week Comments No 0 (1 standard drink = 0.6 oz pure alcoho l) Sex Assigned at Date Recorded Not on file documented as of this encounter Miscellaneous Notes Telephone Encounter - Alyssa Darling - 02/20/2020 1:37 PM EDT Called [place] to inform her of the following: As a new precaution with COVID-19 we are calling all patients before they come in for their appointment to screen for any potential symptoms. 1. EXPOSURE: ???Have you been in contact with anyone suspected or confirmed to have COVID-19 in the past 14 days??? No 2. Do you have a fever, cough, or shortness of breath? No [if they say yes to symptoms but no to exposure OR yes to symptoms and yes to exposure include the following and route to triage] I am going to forward this information on to our triage nurse. Someone should be calling you about next steps in regards to your appointment. Another precaution we are taking is that we are not allowing visitors at this time. If needed, someone may bring you to your appointment but they will be asked to wait outside. If you develop symptoms of shortness of breath, cough, or fever prior to your appointment do not come in for your appointment. Please call the Cancer Center before coming in. Malu was test at [facility] the last week of January. It was negative. Malu states she has not been out of the state in the past 30 day. documented in this encounter Plan of Treatment Not on filedocumented as of this encounter Visit Diagnoses Not on filedocumented in this encounter Care Teams Cytogenetics Laboratory Manager Relationship Specialty Start Date End Date Brandee Fuchs APRN PCP - General Family Medicine 01/17/19 [address] [place] [address] documented as of this encounter
--- OUTSIDE RECORDS SUMMARY | 2022-07-09 01:15 | XMS_ITS | Encounter Summary ---
:1975 Author Organization [facility] Address [address] [place] [address] Care Team Providers Name Role Phone DanielBrandee huynh Obdulia GAMBLE Primary Care Provider Encounter Details Date Type Department Care Team Description 12/14/2019 Hospital Encounter Pulmonology at [facility] Moderate persistent [facility] asthma, u [address] [place] [address] Social History Tobacco Use Types Packs/Day [...] Sig Dispensed Refills Start Date End Date cholecalciferol, Take 1,000 Units by 0 Vitamin D3, 1,000 unit mouth daily. Capsule ondansetron (ZOFRAN) 4 Take 1 tablet by 30 tablet 3 06/26/ 019 mg Tablet mouth 2 times daily as needed for Nausea. Take 1 hour prior to oral iron. multivitamin Take 1 tablet by 0 (THERAGRAN) Tablet mouth daily. folic acid (FOLVITE) 1 Take 1 mg by mouth 0 mg Tablet daily. albuterol (PROVENTIL) Take 2.5 mg by 0 09/10/2016 2.5 mg /3 mL (0.083 %) nebulization as Solution for needed. Nebulization montelukast (SINGULAIR) Take 10 mg by mouth 0 11/2015 10 mg Tablet daily. omeprazole (PRILOSEC) Take 40 mg by mouth 0 09/10 40 mg Capsule, Delayed daily. Release(E.C.) BREO ELLIPTA 200-25 Inhale 1 puff into 1 07/14/20 16 mcg/dose Disk with the lungs daily. Device SPIRIVA RESPIMAT 1.25 Inhale 2 puffs into 1 07/14 mcg/actuation Mist the lungs daily. triamcinolone (NASACORT 2 sprays by Nasal 0 OR NASACORT OTC) 55 mcg route daily. Aerosol, [place] polyethylene glycol as needed. 0 10/26/201906/26 (Miralax) 17 gram/dose Powder ferrous sulfate 325 mg Take 1 tablet by 180 tablet 3 017 06/26/2020 (65 mg iron) Tablet mouth 2 times daily (after meals). documented as of this encounter Procedure Notes Mariam Gonzales MD - 12/14/2019 11:59 PM ESTAssociated Order(s): PULMONARY FUNCTION TEST Pulmonary Function Test Interpretation FEV1 is reduced. FVC is reduced. The FEV1/FVC ratio is normal. Impression: [x] Moderate restrictive ventilatory defect (FVC 60-69%) Significant bronchodilator responsiveness present. Mariam Gonzales MD documented in this encounter Plan of Treatment Not on filedocumented as of this encounter Procedures Procedure Name Priority Date/Time Associated Diagnosis Comme nts PULMONARY FUNCTION Routine 12/14/2019 11:59 PM Moderate persis tent Results for this TEST EST asthma, unspecified procedur e are in whether complicated the resu lts section. documented in this encounter Results Pulmonary Function Testing (12/14/2019 11:59 PM EST) Narrative Mariam Gonzales MD - 12/14/2019 11:[address] Mariam Gonzales MD ? 12/16/2019 11:36 PM Pulmonary Function Test Interpretation FEV1 is reduced. ??FVC is reduced. ??The FEV1/FVC ratio is normal. Impression: [x] Moderate restrictive ventilatory def ect (FVC 60-69%) Significant bronchodilator responsivenes s present. Mariam Gonzales MD Nuha Dubon MD PFT ORDERABLES documented in this encounter Visit Diagnoses Diagnosis Moderate persistent asthma, unspecified whether complicated documented in this encounter Care Teams Community Relations Director Relationship Specialty Start Date End Date Brandee Fuchs, CARGO SERVICE SUPERVISOR PCP - General Family Medicine 01/17/19 [address] [place] [address] documented as of this encounter
--- OUTSIDE RECORDS SUMMARY | 2022-07-09 01:15 | XMS_ITS | Encounter Summary ---
:1975 Author Organization [facility] [place] [address] Care Team Providers Name Role Phone Daniellino Brandee Lino GAMBLE Primary Care Provider Encounter Details Date Type Department Care Team Description 02/13/2020 Telephone Hematology/Oncology at [facility] Alyssa Darling [address] [place] [address] [phone] Social History Tobacco Use Types Packs/Day Years Used Date Former Smoker Cigarettes 0.5 11 Quit: 01/05/20 03 Smokeless Tobacco: Never Used Alcohol Use Standard Drinks/Week Comments No 0 (1 standard drink = 0.6 oz pure alcoho l) Sex Assigned at Date Recorded Not on file documented as of this encounter Miscellaneous Notes Telephone Encounter - Alyssa Darling - 02/13/2020 3:11 PM EDT Called [place] to inform her [...] the [facility] before coming in. [place] states she has not been out of the state in the past 30 days. documented in this encounter Plan of Treatment Not on filedocumented as of this encounter Visit Diagnoses Not on filedocumented in this encounter Care Teams Clinical Research Nurse Coordinator Relationship Specialty Start Date End Date Brandee Fuchs, GREENHOUSE TECHNICIAN PCP - General Family Medicine 01/17/19 [address] [place] [address] documented as of this encounter
--- OUTSIDE RECORDS SUMMARY | 2022-07-09 01:15 | XMS_ITS | Encounter Summary ---
:1975 Author Organization [facility] [place] [address] Support Name Relationship Address Phone No One Unavailable Unavailable Taurus Michael Child [address] [phone] [place] [address] Care Team Providers Name Role Phone Brandee Fuchs MAVIS Primary Care Provider Reason for Visit Reason Comments IV Medication Venofer, and antiemetics Encounter Details Date Type Department Care Team Description 02/07/2020 [facility] [address] [facility] anemia type [place], [place] [phone] Social History Tobacco Use Types Packs/Day Years Used Date Former Smoker Cigarettes 0.5 11 Quit: 01/05/20 03 Smokeless Tobacco: Never Used Alcohol Use Standard Drinks/Week Comments No 0 (1 standard drink = 0.6 oz pure alcoho l) Sex Assigned at Date Recorded Not on file documented as of this encounter Progress Notes Milla Griffin RN - 02/07/2020 9:30 AM EDT INFUSION THERAPY ADMINISTRATION NOTES DIAGNOSIS: Iron Deficiency REASON FOR VISIT: Venofer SUBJECTIVE [place] De offers no complaints. States has had nausea with previous venofer. Premeds given as ordered with good effect [...] Dose Rate Site dexamethasone (DECADRON) injection Given 02/07/2020 10:01 AM EDT 10 mg 10 mg 10 mg, Intravenous, ONCE, 1 dose, On Rachel 02/07/20 at 1000 iron sucrose (Venofer) 300 mg in New Bag 02/07/2020 10:35 AM E DT 300 mg 76.7 mL/hr sodium chloride 0.9% 115 mL 300 mg, Intravenous, ONCE, 1 dose, On Rachel 02/07/20 at 1000, Administer over 90 Minutes, Week 1 of 3 Infusions, Outpatient Transfusion ondansetron (Zofran) tablet 8 mg Given 02/07/2020 10:01 AM EDT 8 mg 8 mg, Oral, ONCE, 1 dose, On Rachel 02/07/20 at 1000, Routine documented in this encounter Care Teams Compliance Tester Relationship Specialty Start Date End Date Brandee Fuchs, OCCUPATIONAL HEALTH COORDINATOR PCP - General Family Medicine 01/17/19 [address] [place] [address] documented as of this encounter
--- OUTSIDE RECORDS SUMMARY | 2022-07-09 01:15 | XMS_ITS | Encounter Summary ---
:1975 [place] [address] Care Team Providers Name Role Phone Brandee Fuchs APRN Primary Care Provider Encounter Details Date Type Department Care Team Description 06/20/2019 Ancillary Procedure Radiology Library at [facility] [place] [facility] [place] [address] [place] [address] [phone] (Wo rk) Social History Tobacco Use Types [...] Name Priority Date/Time Associated Diagnosis Comme nts FILM LIBRARY Routine 06/20/2019 12:00 AM Results for this STORAGE ONLY DX EDT procedure ar e in SPINE the results section. documented in this encounter Results Film Library- Storage Only DX Spine (06/20/2019 12:00 AM EDT) Specimen (Source) Anatomical Location Collection Method / Collectio n Time Received Time / Laterality Volume Narrative RAD - 06/21/2019 9:46 PM EDT This exam is auto-finalizing. It's purpo se is for storage only. Berkley P Keady TICKER INSTALLER IMG FILM LIBRARY ORDERABLES Performing Organization Address City/State/ZIP Code Phon e Number [facility] [place], [place] documented in this encounter Visit Diagnoses Not on filedocumented in this encounter Care Teams Paste Plant Supervisor Relationship Specialty Start Date End Date Brandee Fuchs APRN PCP - General Family Medicine 01/17/19 [address] [place] [address] documented as of this encounter
--- OUTSIDE RECORDS SUMMARY | 2022-07-09 01:15 | XMS_ITS | Encounter Summary ---
:1975 Author Organization [facility] [place] [address] Care Team Providers Name Role Phone Brandee Fuchs MAVIS Primary Care Provider Reason for Referral Consultation (Routine) - Closed Specialty Diagnoses / Procedures Referred By Contact Refer red To Contact Sleep Center Diagnoses Fatigue, unspecified type Nuha Dubon MD [facility] Sleep Medicine [facility] [address] [place] [address] [place] [address] Referral ID Status Reason Start Date Expiration Date Visits V isits Requested Authorized [id number] Closed Consult, 09/17/2019 09/16/2020 1 1 Test & Treat Reason for Visit Reason Comments Referral Encounter Details Date Type Department Care Team Description 09/17/2019 Office Visit Pulmonology at [facility] [place] Nuha Dubon MD Moderate persistent asthma, unspecified whether complicated; [facility] Fatigue, unspecified type; [facility] [address] Environmental allergies [place], [place] Pulmonary [id number] Medicine [phone] [place] [id number] Social History Tobacco Use Types Packs/Day Years Used Date Former Smoker Cigarettes 0.5 11 Quit: 01/05/20 03 Smokeless Tobacco: Never Used Alcohol Use Standard Drinks/Week Comments No 0 (1 standard drink = 0.6 oz pure alcoho l) Sex Assigned at Date Recorded Not on file documented as of this encounter Last Filed Vital Signs Vital Sign Reading Time Taken Comments Blood Pressure 123/66 09/17/2019 4:24 PM EST Pulse 69 09/17/2019 4:24 PM EST Temperature - - Respiratory Rate 20 09/17/2019 4:24 PM EST Oxygen Saturation 99% 09/17/2019 4:24 PM EST Inhaled Oxygen Concentration - - Weight 79.4 kg (175 lb) 09/17/2019 4:24 PM EST Height 154.9 cm (5' 1) 09/17/2019 4:24 PM EST Body Mass Index 33.07 09/17/2019 4:24 PM EST documented in this encounter Progress Notes Nuha Dubon MD - 09/17/2019 4:00 PM EST Images from the original note were not included. [facility] Section of Pulmonary and Critical Care Medicine Outpatient Consultation Date of Encounter: 09/17/2019 Referring Provider: No referring provider defined for this encounter. Reason for Evaluation: Brandee Fuchs APRN referred Ms. Malu De to the pulmonary clinic for evaluation and management of asthma. I independently interviewed and examined the patient in the officeand have reviewed available records. Dear Ms. Jef APRN, As you know, Malu De is a 43 y.o. woman with history of asthma, allergies, fibromyalgia and GERD who was referred due to uncontrolled asthma after nursing home of her previous night stocker in [facility]. Ms. De reports that her asthma has been an active problem for the past 4-5 years. She has frequent dyspnea, chest tightness with difficulty taking a breath in, and wheezing, and is using many nebulized albuterol treatments often 4-5 times per day most days. She identifies her environmental and animal allergies as a significant trigger for dyspnea, as well as her fibromyalgia flares and back spasmsas a significant contributor to her dyspnea (cause her to feel unable to take a breath). Some cleaning supplies or strong odors and chemicals can also trigger breathing problems, and she tries to avoid these and other perfumes. She has been followed previously by Pulmonary in [facility] for years. Her last ED visit was in October for dyspnea; she recalls many prior ED visits and some admissions for dyspnea, but denies any history of intubations. She had a smaller respiratory flare in June and was treated with a steroid course for this then(medrol dose pack), and had had a previous oral steroid course in November of this year. She feels steroids are helpful and improve dyspnea and wheezing when respiratory symptoms worsen. She has allergic rhinitis and is followed by an allergy team in [facility] and has had prior allergy testing done there. She is allergic to cats and gets hives and some sinus congestion when around cats and horses, but she has not notice coughing or wheezing from these animals. She knows she is allergic to dust mites and is attentive to washing bedding regularly and keeps carpets out of the bedroom. She has a dog and doesn't notice any reaction to the dog. She was treated with xolair for a few months some time ago but this made her breathing worse and was discontinued (this was at [facility] in [place], with Dr. Jj (sp?).) She has also been evaluated by ENT Dr. Carter in [facility] after CT imaging was suggestive of nasal polyps. She believes she underwent laryngoscopy at that visit to evaluate for nasal polyps, but that they did not find polyps and instead told her she had nasal mucous cysts which should be treated with nasacort steroid spray. She was diagnosed with GERD about 4 years ago, but reports that she has only occasional heartburn symptoms, and she is still taking the omeprazole 40 daily. She is currently taking spiriva respimat and breo ellipta, albuterol MDI PRN, as well as singulair and nasocort nose spray. In the past she has used the spiriva handihaler, the atrovent inhaler, combivent inhaler, advair discus, anoro ellipta (discontinued by a specialist at [facility] b/c she was on double-LABA therapy at that time), symbicort, dulera (caused bad side effects), flovent discus and HFAversions. She is unable to say why she was changed off of some of these medications. Currently she feels her combination of inhalers is working well between respiratory flares. Quality of sleep is a significant issue, and affected by chronic pain and dyspnea. A sleep referral was recommended, but she has not yet been evaluated for this. She has some night sweats and wakes frequent with sensation of dyspnea. This occurs without edema orchest pain. As a child she recalls having breathing problems. She recalls her was complicated by being blue and hanging from an umbilical cord, and she wheezed a lot as a young child and was treated withsome oral medication for a few years. She recalls dyspnea on exertion as a child. She was formally di agnosed with asthma at age 16. She reports pregnancies have been complicated by dyspnea, hypoxia andmany years of ongoing breathing problems, with frequent steroid requirements. There is no history of lung disease in the family other than seasonal allergies in her mom. She is aformer smoker, 1/2 ppd for about 11 years, and quit in 2002. She is very bothered by being around people who are vaping. She lives with a smoker, who tries to smoke outdoors. She is currently unemployed. 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 Past Medical and Surgical History: Past Medical History: Diagnosis Date ??? Asthma ??? Chronic pain ??? Fatigue ??? Fibromyalgia ??? GERD (gastroesophageal reflux disease) ??? GERD (gastroesophageal reflux disease) Past Surgical History: Procedure Laterality Date ??? SECTION ??? OVARIAN CYST SURGERY Family History: Family History Problem Relation Age of Onset ??? Allergies Mother ??? Heart Disease Father ??? Alcohol Use Disorder Father ??? Liver Disease Father Social and Occupational History: Social History Socioeconomic History ??? Marital status: Single Spouse name: None ??? Number of children: None ??? Years of education: None ??? Highest education level: None Occupational History ??? None Social Needs ??? Financial resource strain: None ??? Food insecurity: Worry: None Inability: None ??? Transportation needs: Medical: None Non-medical: None Tobacco Use ??? Smoking status: Former Smoker Packs/day: 0.50 Years: 11.00 Pack years: 5.50 Types: Cigarettes Last attempt to quit: 01/04/2003 Years since quittin.7 ??? Smokeless tobacco: Never Used Substance and Sexual Activity ??? Alcohol use: No ??? Drug use: No ??? Sexual activity: None Lifestyle ??? Physical activity: Days per week: None Minutes per session: None ??? Stress: None Relationships ??? Social connections: Talks on phone: None Gets together: None Attends mormon service: None Active member of club or organization: None Attends meetings of clubs or organizations: None Relationship status: None ??? Intimate partner violence: Fear of current or ex partner: None Emotionally abused: None Physically abused: None Forced sexual activity: None Other Topics Concern ??? None Social History Narrative ??? None Current Medications at Start of Encounter: Outpatient Medications Prior to Visit Medication Sig Dispense Refill ??? cholecalciferol, Vitamin D3, 1,000 unit Capsule [...] (NASACORT OR NASACORT OTC) 55 mcg Aerosol, [place] 2 sprays by Nasal route daily. ??? ferrous sulfate 325 mg (65 mg iron) Tablet Take 1 tablet by mouth 2 times daily (after meals). (Patient taking differently: Take 325 mg by mouth every other day. Takes 1 tab every other day) 180 tablet 3 No facility-administered medications prior to visit. Adverse Drug Reactions: Allergies Allergen Reactions ??? Acetaminophen Mouth blisters ??? Cyclobenzaprine Other (See Comments) Small blisters ??? Indomethacin ??? Vicodin [Hydrocodone-Acetaminophen] Mouth blisters Review of Systems: An 10-point ROS was completed and was positive as noted in HPI, also positive for some anxiety and occasional headaches, some peripheral numbness, occasional dizzy spells, and otherwise negative. Physical Examination: BP 123/66 Pulse 69 Resp 20 Ht 154.9 cm (5' 1) Wt 79.4 kg (175 lb) LMP (Exact Date) Comment: tuballigation SpO2 99% BMI 33.07 kg/m?? GEN: NAD, alert, generally well appearing, comfortable and conversational HEENT: MMM, clear OP, nares patent with some inflammation but no significant discharge, anicteric sclera, PERRL, no sinus tenderness, neck supple with no significant LAD or tenderness, thyroid is smooth and mobile CV: RRR, no murmur, pulse 1+ PULM: Normal WOB; when asked to take a deep breath appears to have difficulty sustaining inhalation to end of breath with diminished breath sounds however when ausculating during phonation she has easyair entry to bases; there is no crackles or wheezing, no cyanosis or clubbing ABD: +BS, soft, NT/ND, no palpable HSM or mass MSK: no joint swelling or warmth, normal bulk and tone EXT: warm, perfused, no edema, not tender DERM: no rash or lesions NEURO: AAO, voice clear Pulmonary Function Test Results: Not performed at this visit. Previous spirometry 03/16/2019 at [facility] demonstrates moderate airflow obstruction and dramatic response to bronchodilator challenge (FEV1 1.52 -->2.44 L with BD challenge), with normal lung volumes and normal diffusing capacity. Labs, Microbiology and Imaging: I personally reviewed relevant laboratory, microbiologic and radiology results which were significant for: Eosinophils 600 on prior CBCs in 2017 Immunization History: Flu vaccine: Pneumovax: unknown Prevnar-13: NA Impression and Recommendations: Malu eD is a 43 y/o woman with frequent dyspnea in the setting of diagnosis of asthma, allergies, GERD, and fibromyalgia, presenting to transfer her pulmonary care to our center after her previous night stocker retired. Spirometry was not repeated at this visit; prior spirometry demonstrates in itially low airflow with a slow up-tick in flow which dramatically improves in a seemingly non-physiologic manner with albuterol in March of 2019. Her respiratory exam at this visit was variable and didinclude periods of good air movement in the chest. Based on her description of variable dyspnea withacute worsening related to fibromyalgia and back spasms I suspect her dyspnea is multifactorial and she may also have a component of vocal chord dysfunction contributing to her dyspnea. She is followedby an water rights specialist and had significant eosinophilia on prior labs but worsened while on a trial of xolair; we will reassess airflow with her next visit and may reconsider biologic therapies if she develops persistent airflow abnormalities in the future. For now, I recommend she remain on triple inhaled therapy with breo ellipta and spiriva respimat, with a goal of avoiding further need for oral steroids. She may continue to use albuterol PRN with dyspnea or wheezing and was also encouraged to try relaxation techniques when short of breath to address her self-described contribution from back muscle spasms and pain. She was encouraged to limit tobacco exposure (currently second hand in her home), and avoid known respiratory triggers. Her nocturnal awakenings from dyspnea may represent ROSALVA and I recommended a sleep evaluation for this. GERD can contribute to uncontrolled asthma but current is reportedas controlled. Summary Recommendations: - I suspect dyspnea is multifactorial, and discussed this at length with Ms. De at her visit - for asthma, continue breo ellipta and spiriva respimat with albuterol PRN - encouraged use of relaxation techniques as well for back pain/spasms causing dyspnea - continue topical nasal steroid and singulair daily as advised by ENT/Allergy - recommended avoidance of any known respiratory triggers including second hand smoke - a referral to sleep medicine for evaluation of possible ROSALVA was placed - we will check spirometry with bronchodilator challenge and FeNO at next visit Thank you for involving me in Mrs. De's care. Follow up has been arranged in 3 months in our clinic. Please feel free to contact me with any further questions or concerns Nuha Dubon MD [facility] PULMONOLOGY AT [facility] [address] Dept: [phone] Loc: [phone] documented in this encounter Plan of Treatment Scheduled Referrals Name Type Priority Associated Diagnoses Order S chedule Referral to Sleep Outpatient Referral Routine Fatigue, unspeci fied Ordered: Disorders Center type 09/17/2019 documented as of this encounter Results Pulmonary Function Testing (12/14/2019 [...] Diagnosis Moderate persistent asthma, unspecified whether complicated Fatigue, unspecified type Environmental allergies Allergic rhinitis, cause unspecified Moderate persistent asthma, unspecified whether complicated documented in this encounter Care Teams Hand Edge Bander Relationship Specialty Start Date End Date Brandee Fuchs, NURSERY HAND PCP - General Family Medicine 01/17/19 [address] [place] [address] documented as of this encounter
--- OUTSIDE RECORDS SUMMARY | 2022-07-09 01:15 | XMS_ITS | Encounter Summary ---
:1975 Author Organization [facility] Address [address] [place] [address] Support Name Relationship Address Phone No One Unavailable Unavailable Taurusjayjay Michael Child [address] [phone] [place] [address] Care Team Providers Name Role Phone Brandee Fuchs MAVIS Primary Care Provider Encounter Details Date Type Department Care Team Description 08/02/2019 Office Visit Hematology/Oncology Maggi Hernandez MD Iron deficiency at [facility] anemia, unspecified [address] iron deficiency anemia [place], [place] HEMATOLOGY/ONCOLOG type [id number] [address] DEPT. [phone] [place], [place] [address] Social History Tobacco Use Types Packs/Day Years Used Date Former Smoker Cigarettes Quit: 01/05/20 03 Smokeless Tobacco: Never Used Alcohol Use Standard Drinks/Week Comments No 0 (1 standard drink = 0.6 oz pure alcoho l) Sex Assigned at Date Recorded Not on file documented as of this encounter Last Filed Vital Signs Vital Sign Reading Time Taken Comments Blood Pressure 104/59 08/02/2019 11:34 AM EDT Pulse 65 08/02/2019 11:34 AM EDT Temperature 36.4 ??C (97.5 ??F) 08/02/2019 11:34 AM EDT Respiratory Rate 16 08/02/2019 11:34 AM EDT Oxygen Saturation 99% 08/02/2019 11:34 AM EDT Inhaled Oxygen Concentration - - Weight 83.9 kg (185 lb) 08/02/2019 11:34 AM EDT Height 157.5 cm (5' 2.01) 08/02/2019 11:34 AM EDT copi ed Body Mass Index 33.83 08/02/2019 11:34 AM EDT documented in this encounter Progress Notes Ashok Hernandez MD - 08/02/2019 11:30 AM EDT I am seeing the patient in the [facility]. He has a history of iron deficiency anemia. When we saw her in May her hemoglobin was about 11 and her MCV was 68. She was clearly iron deficient with a ferritin of 5. She had tolerated intravenous iron poorly previously and wanted to try oral repletion. We recommended ferrous sulfate which she has been taking 3 times a week. She was pretty compliant with it. She does get occasional constipation and abdominal pain. She stopped the iron about a week ago. No other major problems. She did see her primary care doctor who ordered a colonoscopy but she has not had that yet. I did not repeat a physical exam today. Laboratory studies today show white count of 7.0, hemoglobin of 12.2, MCV of 76.9, platelets 396. Her ferritin is 4 Assessment 43-year-old female with iron deficiency anemia. She has normalized her hemoglobin with oral iron butshe has not yet replenished her iron storage. Given that she is able to absorb the iron and now has a normal hemoglobin I do not think we need to be too aggressive with her. I recommended that she take 1 iron tablet per week. I recommended MiraLAX for a day or 2 before she takes it and as needed for constipation. My guess is this strategy will keep her iron levels adequate and she should not redevelop anemia depending on her iron losses. I recommended that she follow this strategy until she goes through menopause and at that point she probably will not need any iron supplementation. I did not make a return appointment for the patient but would be happy to be involved if this strategy does not work for her or if there are more questions in the future. documented in this encounter Plan of Treatment Not on filedocumented as of this encounter Visit Diagnoses Diagnosis Iron deficiency anemia, unspecified iron deficiency anemia type documented in this encounter Care Teams Electrical Inspector Relationship Specialty Start Date End Date Brandee Fuchs APRN PCP - General Family Medicine 01/17/19 [address] [place] [address] documented as of this encounter
--- OUTSIDE RECORDS SUMMARY | 2022-07-09 01:15 | XMS_ITS | Encounter Summary ---
:1975 [place] [address] Care Team Providers Name Role Phone Brandee Fuchs MAVIS Primary Care Provider Encounter Details Date Type Department Care Team Description 04/08/2020 [place] [facility] Dubon, Severe persistent asthma wit h acute exacerbation; (TeleHealth) [facility] Environmental allergies; [facility] [id number] Pulmonary [phone] [place] [address] Social History Tobacco Use Types Packs/Day Years Used Date Former Smoker Cigarettes 0.5 11 Quit: 01/05/20 03 Smokeless Tobacco: Never Used Alcohol Use Standard Drinks/Week Comments No 0 (1 standard drink = 0.6 oz pure alcoho l) Sex Assigned at Date Recorded Not on file documented as of this encounter Progress Notes Nuha Dubon MD - 04/08/2020 4:30 PM EDT Images from the original note were not included. [facility] Section of Pulmonary and Critical Care Medicine Outpatient Consultation Date of Encounter: 04/08/2020 TELEPHONE VISIT Patient identity was confirmed by name and date of at beginning of this call. Patient was informed that this telephone visit is a billable encounter and stated agreement to continue. Reason for Evaluation: Ms. Malu De returns to the pulmonary clinic for follow-up of asthma and allergies. I independently interviewed the patient, have examined the patient if this visit was conducted in the office and have reviewed available records. Dear Brandee Fuchs APRN, As you know, Malu De is a 44 y.o. woman with ongoing dyspnea int he setting of history of asthma, allergies, fibromyalgia and GERD, who was last evaluated in the pulmonary clinic in December 2019. Mrs. De reports significant health issues this spring, partially related to daughter dying in a car accident in December shortly after our last visit. She has had a lot of dyspnea after this event, with asthma exacerbations requiring prednisone and anxiety triggering dyspnea. This month she feels likeher breathing is returning back to how it was before the accident, but still reports overall poor asthma control. She has dyspnea with exertion. She also has shortness of breath when feeling emotional or sad. She is using the albuterol up to 5 times most days, with some relief. Wheezing intermittently. She is still taking breo and spiriva daily. She has had some hive-like rashes from spring allergies this year, but feels like her sinuses are pretty clear currently. She is on singulair and flonase. She has been receiving iron infusions, and notes that some of her blood lines were lower on the recent bloodwork last week. ([facility] labs; not currently available.) Her eosinophils were elevated on labwork in December. As you will recall, she has been hospitalized with respiratory failure with previous asthma exacerbations/infectons, and in prior years has been steroid dependent. She has a low threshold for exacerbations in general. She has had at least 4 (possibly many more?) courses of prednisone this year. She is still worried that because of her previous reaction to xolair (worsened dyspnea after second dose) and history of side effects from many other medications that she might experience side effects from biologic drugs for eosinophilia/asthma. She does experience side effects from prednisone when she is on this (weight gain.) Current Medications at Start of Encounter: Outpatient Medications Prior to Visit Medication Sig Dispense Refill ??? dexamethasone (Decadron) 4 mg Tablet Take 1 tablet by mouth daily. Take daily x 3 days after each iron infusion (Patient not taking: Reported on 03/13/2020) 6 tablet 0 ??? ipratropium-albuteroL (DUONEB) 0.5 [...] (NASACORT OR NASACORT OTC) 55 mcg Aerosol, [place] 2 sprays by Nasal route daily. No facility-administered medications prior to visit. Review of Systems: A focused ROS was completed and was positive as noted in HPI, also positive for depression/bereavment and otherwise negative. Physical Examination: Telephone visit; exam limited. Voice clear on the phone, occasionally tearful talking about loss of her daughter. Pulmonary Function Test Results: Not repeated with this telehealth visit. Prior testing December 2019 demonstrates unmasking of moderate airflow obstruction with albuterol administration, and intermediate FeNO of 33. Labs, Microbiology and Imaging: I personally reviewed relevant laboratory, microbiologic and radiology results which were significant for: Prior eosinophil level 500 12/14/2019. Impression and Recommendations: Malu De is a 44 y/o woman with frequent dyspnea in the setting of asthma, allergies, GERD, and fibromyalgia, with persistent symptoms of uncontrolled asthma, very frequent oral corticosteroid courses this year, and unmasking of moderate airflow obstruction on spirometry at her last visit. Unfor tunately, symptoms are not improving this year. We again discussed option to try biologic therapy targetting her eosinophilia which she is nervous about but which she is now willing to try. Given her history of side effects from many previous medications she would like to try the shortest-acting biologic option possible, which would be dupixent. I think this would be an appropriate choice for her severe persistent asthma and we will prescribe this. Additionally, as she has uncontrolled symptoms currently concerning for subacute asthma exacerbation I am prescribing a steroid course now for more immediate relief while we work on prior authorization. She will continue on current breo and spiriva as well. There may still be a component of vocal chord dysfunction contributing to dyspnea at times. Summary Recommendations: - trial of dupixent, we will work with our pharmacy to request authorization for this - prednisone 40 mg x 5 days, 20 mg x 7 days, rx sent to pharmacy with this visit - continue breo, spiriva, albuterol PRN, duonebs PRN, singulair, nasal steriods Follow-up in 3 months via telehealth. Thank you for involving me in Mrs. De's care. Please feel free to contact me with any further questions or concerns. I personally spent 40 minutes of this telephone/telehealth encounter with the patient discussing their pulmonary disease and treatment recommendations as outlined in my assessment and plan above. This visit involved a total of 50 minutes of clinical time. Nuha Dubon MD N [facility] PULMONOLOGY AT [facility] [address] Dept: [phone] Loc: [phone] documented in this encounter Plan of Treatment Not on filedocumented as of this encounter Visit Diagnoses Diagnosis Severe persistent asthma with acute exac erbation Unspecified asthma, with exacerbation Environmental allergies Allergic rhinitis, cause unspecified Eosinophilia documented in this encounter Care Teams Vending Machine Coin Collector Relationship Specialty Start Date End Date Brandee Fuchs APRN PCP - General Family Medicine 01/17/19 [address] [place] [address] documented as of this encounter
--- OUTSIDE RECORDS SUMMARY | 2022-07-09 01:15 | XMS_ITS | Encounter Summary ---
:1975 Author Organization [facility] [place] [address] Care Team Providers Name Role Phone Brandee Fuchs APRN Primary Care Provider Encounter Details Date Type Department Care Team Description 03/11/2020 Telephone Pain and Spine Azra lakhani [place] [facility] [place] [address] Social History Tobacco Use Types Packs/Day Years Used Date Former Smoker Cigarettes 0.5 11 Quit: 01/05/20 03 Smokeless Tobacco: Never Used Alcohol Use Standard Drinks/Week Comments No 0 (1 standard drink = 0.6 oz pure alcoho l) Sex Assigned at Date Recorded Not on file documented as of this encounter Miscellaneous Notes Telephone Encounter - Liliana Thomas - 03/11/2020 11:38 AM EDT LEFT A VOICEMAIL TO CONFIRM MOVE OF APPT TIME TO 9:00 AM INSTEAD OF 10:00 AM ON 03/13/20 documented in this encounter Plan of Treatment Not on filedocumented as of this encounter Visit Diagnoses Not on filedocumented in this encounter Care Teams Buffer Copper Relationship Specialty Start Date End Date Brandee Fuchs APRN PCP - General Family Medicine 01/17/19 [address] [place], [place] [address] documented as of this encounter
--- OUTSIDE RECORDS SUMMARY | 2022-07-09 01:15 | XMS_ITS | Encounter Summary ---
:1975 Author Organization [facility] [place] [address] Care Team Providers Name Role Phone Brandee Fuchs APRN Primary Care Provider Encounter Details Date Type Department Care Team Description 04/02/2020 Telephone [place] [facility] [place] [address] Social History Tobacco Use Types Packs/Day Years Used Date Former Smoker Cigarettes 0.5 11 Quit: 01/05/20 03 Smokeless Tobacco: Never Used Alcohol Use Standard Drinks/Week Comments No 0 (1 standard drink = 0.6 oz pure alcoho l) Sex Assigned at Date Recorded Not on file documented as of this encounter Miscellaneous Notes Telephone Encounter - Jaimie Simmons LNA - 04/02/2020 1:39 PM EDT Pt calling back re appt on 04/08. Pt has tried to do telehealth with other providers and can't get the program to work. Scheduled phone visit with Dr. Dubon. documented in this encounter Plan of Treatment Not on filedocumented as of this encounter Visit Diagnoses Not on filedocumented in this encounter Care Teams Aircraft Engine Dismantler Relationship Specialty Start Date End Date Brandee Fuchs, TATTOO ARTIST PCP - General Family Medicine 01/17/19 [address] [place] [address] documented as of this encounter
--- OUTSIDE RECORDS SUMMARY | 2022-07-09 01:16 | XMS_ITS | Encounter Summary ---
:1975 Author Organization [facility] [place] [address] Care Team Providers Name Role Phone Lawson Whitaker MD Primary Care Provider Reason for Referral Consultation (Routine) - Closed Specialty Diagnoses / Procedures Referred By Contact Refer red To Contact Pulmonology Diagnoses Moderate persistent asthma, unspecified whether complicated Gabby Mccollum MD [facility] [address] [facility] [address] [facility] [address] HEMATOLOGY/[place] [address] [place] [address] Referral ID Status Reason Start Date Expiration Date Visits V isits Requested Authorized [id number] Closed Consult, 08/05/2017 08/05/2018 1 1 Test & Treat Reason for Visit Reason Comments Follow-up Encounter Details Date Type Department Care Team Description 08/05/2017 Office Visit Hematology Gabby Azul, Moderate persistent Oncology at [facility] MD asthma, unspecified [facility] whe [address] [place] HEMATOLOGY/ONCOLOG [address] Y [phone] [place], [place] [address] Social History Tobacco Use Types Packs/Day Years Used Date Former Smoker Cigarettes Quit: 01/05/20 03 Smokeless Tobacco: Never Used Alcohol Use Standard Drinks/Week Comments No 0 (1 standard drink = 0.6 oz pure alcoho l) Sex Assigned at Date Recorded Not on file documented as of this encounter Last Filed Vital Signs Vital Sign Reading Time Taken Comments Blood Pressure 122/67 08/05/2017 2:18 PM EDT Pulse 60 08/05/2017 2:18 PM EDT Temperature 37 ??C (98.6 ??F) 08/05/2017 2:18 PM EDT Respiratory Rate 21 08/05/2017 2:18 PM EDT Oxygen Saturation 98% 08/05/2017 2:18 PM EDT Inhaled Oxygen Concentration - - Weight 96.3 kg (212 lb 3.2 oz) 08/05/2017 2:18 PM EDT Height 157.3 cm (5' 1.93) 08/05/2017 2:18 PM EDT Body Mass Index 38.9 08/05/2017 2:18 PM EDT documented in this encounter Progress Notes Gabby Mccollum MD - 08/05/2017 2:00 PM EDT Heme/Onc Outpatient Follow Up Date of Consultation: 08/05/17 Reason for Follow Up: Iron deficiency anemia Interval Hx (08/05/17) S/p 4 doses of venofer. Did not tolerate them very well. Has nausea nd diarrhea associated with the infusion. She was able to complete them. She has not noticed much of an improvement in her energy level since receiving the venofer. She continues to struggle with SOB. No bleeding noted Not having menstrual cycles. HPI Malu De is a 41 y.o. female who was referred for evaluation for possible thalassemia. She was found to have a severe microcytic anemia in January and further testing revealed an iron deficiency anemia. Ferritin was in the single digits. She has been on oral iron therapy since then. She struggles with severe fatigue. She has not had any bleeding in her stool. She does report chronic diarrhea though. She has intermittent issues with rashes. She also has chronic joint pain. Patient Active Problem List Diagnosis Date Noted ??? Asthma 09/20/2016 Past Medical History: Diagnosis Date ??? GERD (gastroesophageal reflux disease) ??? GERD (gastroesophageal reflux disease) Past Surgical History: Procedure Laterality Date ??? SECTION ??? OVARIAN CYST SURGERY Family History: Unknown Social History: Has a partner 2 children - in good health Ages 20 (daughter) and 13 years (son) Not working due to health issues No etoh No smoking Social History Social History ??? Marital status: Single Spouse name: N/A ??? Number of children: N/A ??? Years of education: N/A Occupational History ??? Not on file. Social History Main Topics ??? Smoking status: Former Smoker Types: Cigarettes Quit date: 01/04/2003 ??? Smokeless tobacco: Never Used ??? Alcohol use No ??? Drug use: No ??? Sexual activity: Not on file Other Topics Concern ??? Not on file Social History Narrative Allergies: Allergies Allergen Reactions ??? Acetaminophen Mouth blisters ??? Vicodin [Hydrocodone-Acetaminophen] Mouth blisters Medications: Current Outpatient Prescriptions Medication Sig Dispense Refill ??? albuterol (PROVENTIL) 2.5 mg /3 mL (0.083 %) Solution for Nebulization Take 2.5 mg by nebulization as needed. 0 ??? montelukast (SINGULAIR) 10 mg Tablet Take 10 mg by mouth daily. 0 ??? omeprazole (PRILOSEC) 40 mg Capsule, Delayed Release(E.C.) Take 40 mg by mouth daily. 0 ??? sertraline (ZOLOFT) 100 mg Tablet Take 150 mg by mouth daily. 0 ??? BREO ELLIPTA 200-25 mcg/dose Disk with Device Inhale 1 puff into the lungs daily. 1 ??? SPIRIVA RESPIMAT 1.25 mcg/actuation Mist daily. 1 ??? triamcinolone (NASACORT OR NASACORT OTC) 55 mcg Aerosol, [place] 2 sprays by Nasal route daily. ??? ferrous sulfate 325 mg (65 mg iron) Tablet Take 1 tablet by mouth 2 times daily (after meals). (Patient not taking: Reported on 08/05/2017) 180 tablet 3 ??? ergocalciferol (ERGOCALCIFEROL) 50,000 unit Capsule Take 1 capsule by mouth once a week. (Patient not taking: Reported on 08/05/2017) 6 capsule 2 ??? ALPRAZolam (XANAX) 0.25 mg Tablet Take 0.25 mg by mouth as needed. 0 No current facility-administered medications for this visit. [...] symptoms Dermatological ROS: negative Physical Exam BP 122/67 (Patient Position: Sitting) Pulse 60 Temp 37 ??C (98.6 ??F) (Temporal) Resp 21 Ht 157.3 cm (5' 1.93) Wt 96.3 kg (212 lb 3.2 oz) SpO2 98% BMI 38.9 kg/m2 General Appearance: Alert, cooperative, no distress, appears stated age Head: Normocephalic, without obvious abnormality, atraumatic Eyes: PERRL, conjunctiva/corneas clear, EOM's intact Nose: Nares normal, septum midline,mucosa normal, no drainage or sinus tenderness Throat: Lips, mucosa, and tongue normal; teeth and gums normal Neck: Supple, symmetrical, trachea midline, no adenopathy; thyroid: not enlarged, symmetric, no tenderness/mass/nodules; no carotid bruit or JVD Back: Symmetric, no curvature, ROM normal, no CVA tenderness Lungs: Diffuse wheezing throughout both lung fagan Heart: Regular rate and rhythm, S1 and S2 normal, no murmur, rub, or gallop Abdomen: Soft, non-tender, bowel sounds active all four quadrants, no masses, no organomegaly Extremities: Extremities normal, atraumatic, no cyanosis or edema Skin: Skin color, texture, turgor normal, no rashes or lesions Lymph nodes: Cervical, supraclavicular, and axillary nodes normal Neurologic: Normal Recent Results (from the past 24 hour(s)) Hemogram Result Value Ref Range WBC 8.6 4.0 - 9.5 x10(3)/mcL RBC 5.65 (H) 4.00 - 5.21 x10(6)/mcL Hemoglobin 14.3 11.7 - 15.5 gm/dL Hematocrit 45.8 35.7 - 45.8 % MCV 81.1 (L) 82.6 - 94.4 fL MCH 25.3 (L) 27.1 - 32.0 pg MCHC 31.2 (L) 31.7 - 35.0 gm/dL Platelets 373 (H) 145 - 357 x10(3)/mcL RDWSD Not Measured 37.0 - 46.0 fL RDWCV Not Measured 11.5 - 14.1 % MPV 9.5 7.6 - 12.9 fL nRBC % Auto 0.0 % nRBC Abs Auto 0.000 0.000 - 0.000 x10(3)/mcL Differential, Automated Result Value Ref Range Neutrophils % 59.3 % Neutr Abs (ANC) 5.13 1.70 - 6.10 x10(3)/mcL Lymphocytes % 25.9 % Lymphocytes Abs 2.2 0.9 - 3.2 x10(3)/mcL Monocytes % 6.6 % Monocyte Abs 0.6 0.3 - 0.9 x10(3)/mcL Eosinophils % 7.4 % Eosinophils Abs 0.6 (H) 0.0 - 0.4 x10(3)/mcL Basophils % 0.5 % Basophils Abs 0.0 0.0 - 0.1 x10(3)/mcL Immature Gran % 0.30 % Gayle Gran Abs 0.03 0.00 - 0.04 x10(3)/mcL Scan, Peripheral Blood Result Value Ref Range Plat Estimate Increased RBC Morphology Abnormal Microcytes 1-5 /HPF Hypochromia Slight Ovalocytes 1-5 /HPF Giant Platelets Less than 1 /HPF Assessment and Plan Malu De is a 41 y.o. female with iron deficiency anemia. There was some concern that she might have an underlying alpha thalassemia. Hemoglobin electrophoresis was normal. -Hemoglobin has now normalized MCV has also improved though still slightly low Celiac serology was negative -microcytic anemia persists -Ferritin is pending -Celiac serology is pending given her GI symptoms (chronic diarrhea) -I am concerned about her breathing - she had a nebulizer in the waiting room right before seeing checo there is still quite a bit of wheezing on exam -I feel fatigue may be more related to pulmonary process rather than Hgb particularly at this point since Hgb has normalized ans she does not feel any better. -Pulmonary consult placed and PFTs ordered GABBY MCCOLLUM MD 08/05/2017 documented in this encounter Plan of Treatment Scheduled Referrals Name Type Priority Associated Diagnoses Order S chedule Referral to Outpatient Referral Routine Moderate persistent O rdered: Pulmonology asthma, unspecified 08/05/20 17 whether complicated documented as of this encounter Visit Diagnoses Diagnosis Moderate persistent asthma, unspecified whether complicated documented in this encounter Care Teams Farm Reporter Relationship Specialty Start Date End Date Lawson Whitaker MD PCP - General General Internal Medicine 06/11/16 01/16/[address] [place] [id number] documented as of this encounter
--- OUTSIDE RECORDS SUMMARY | 2022-07-09 01:16 | XMS_ITS | Encounter Summary ---
:1975 Author Organization [facility] [place] [address] Care Team Providers Name Role Phone Lawson Whitaker MD Primary Care Provider Encounter Details Date Type Department Care Team Description 09/19/2017 Orders Only Sleep Center at [facility] Tammie Johnson MD [facility] [address] [place] [address] [place] [address] [phone] (Wo rk) Social History Tobacco Use Types Packs/Day Years Used Date Former Smoker Cigarettes Quit: 01/05/20 03 Smokeless Tobacco: Never Used Alcohol Use Standard Drinks/Week Comments No 0 (1 standard drink = 0.6 oz pure alcoho l) Sex Assigned at Date Recorded Not on file documented as of this encounter Progress Notes Emma Johnson MD - 09/19/2017 12:23 PM EST Polysomnogram Order Form Room # Technologist Assignment: To be read by on PSG Patient Information Date of study: : 1975 Name: Malu De Height: Weight: 41 y.o. female Normal sleep hours: Arrival Time: Physical/Mobility Limitations: H/o asthma, may need nebulizer medications Cognitive Limitations: No Requires Male Tech: No Requires Female Tech: No Requires 1:1 Care: No Requires Parent/Caregiver: No Not on home oxygen At home sleeps in: Bed PSG Indications: h/o of awakenings, gasping (? Laryngospasm, ? Asthma), and risk factors for ROSALVA Other Medical Conditions: Asthma, poorly controlled - had asthma attack during visit with deep breathing. PSG Orders Type of study:PSG, split for AHI > 30 + CMS AHI > 10 Additional data required: no Special instructions: Start off oxygen. If SPO2 < 87% x 10 min, start on oxygen and titrate to keep at 88% or above. If PAP started, start off oxygen. If CMS AHI < 10 and SpO2 < 87% x 10 min, start on oxygen andtitrate to keep at 88% or above. If severe drops in SpO2, add oxygen and titrate to keep at 87% or above. Once stable on CPAP with CMS AHI < 10, discontinue oxygen to demonstrate ongoing need. If PAP started, start with humidification given her asthma. *Initiate CPAP/BPAP/oxygen per previously determined protocols unless otherwise specified. documented in this encounter Plan of Treatment Not on filedocumented as of this encounter Visit Diagnoses Not on filedocumented in this encounter Care Teams Aerospace Assembler Relationship Specialty Start Date End Date Lawson Whitaker MD PCP - General General Internal Medicine 06/11/16 01/16/[address] [place] [id number] documented as of this encounter
--- OUTSIDE RECORDS SUMMARY | 2022-07-09 01:16 | XMS_ITS | Encounter Summary ---
:1975 Author Organization [facility] [place] [address] Care Team Providers Name Role Phone Lawson Whitaker MD Primary Care Provider Reason for Referral Consultation (Routine) - Closed Specialty Diagnoses / Procedures Referred By Contact Refer red To Contact Sleep Center Diagnoses Chronic fatigue Sleep disturbance Jm Camargo MD [facility] Sleep Medicine [facility] [address] [place] [address] [place] [address] Referral ID Status Reason Start Date Expiration Date Visits V isits Requested Authorized [id number] Closed Consult, 01/11/2017 01/11/2018 1 1 Test & Treat Reason for Visit Reason Comments Follow-up Encounter Details Date Type Department Care Team Description 01/11/2017 Office Visit Rheumatology at [facility] Jm Camargo, Anemia, unspecified type; [facility] Vitamin D deficiency; [facility] Chronic fatigue; [place] [address] Sleep disturbance [phone] RHEUMATOLOGY DEPT. [place], [place] [address] Social History Tobacco Use Types [...] Taken Comments Blood Pressure - - Pulse 86 01/11/2017 9:19 AM EDT Temperature 36.9 ??C (98.5 ??F) 01/11/2017 9:19 AM EDT Respiratory Rate - - Oxygen Saturation 99% 01/11/2017 9:19 AM EDT Inhaled Oxygen Concentration - - Weight 90.7 kg (200 lb) 01/11/2017 9:19 AM EDT Height 156.2 cm (5' 1.5) 01/11/2017 9:19 AM EDT Body Mass Index 37.18 01/11/2017 9:19 AM EDT documented in this encounter Patient Instructions Patient InstructionsJm Camargo MD - 01/11/2017 9:20 AM EDT 1) Check labs today. ?? 2) Refer to Sleep Medicine Clinic. 3) Return to follow up in 3 months. documented in this encounter Progress Notes Jm Camargo MD - 01/11/2017 9:20 AM EDT REASON FOR VISIT: Follow up for neck pain, low back pain, and multiple joint pain. ?? INTERVAL HISTORY: The pt was a 41-year-old female, who [...] no dysuria, polydipsia, blood clots, or rash. PAST MEDICAL HISTORY: Asthma Severe vitamin D [...] children.?? She was currently living with her boyfriend.?? 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 ?? FAMILY HISTORY: Mother - Diabetes mellitus II; alive at the age of 60. ?? Father - Chronic alcoholism; of heart and liver failure at the age of 50. ?? PHYSICAL EXAMINATION: ?? Vitals 01/11/2017 PULSE 86 TEMPERATURE 98.5 Height ([place]) 5' 1.5 Height (Metric) 156.2 cm Weight ([place]) 200 lbs Weight (Metric) 90.719 kg BODY MASS INDEX 37.18 kg/m2 Pulse Oximetry 99 General - Alert, co-operative, no apparent distress, oriented x 3. ?? HEENT - Conjunctiva pink and non-injected, no sclerae icterus or malar rash. ?? Psych - Affect normal. ?? IMPRESSION: 1) Hyperextensible joints, 2) neck pain, 3) low back pain, and 4) multiple joint pain in a 41-year-old female.?? 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 Her initial physical examination and serological studies revealed no stigmata of inflammatory arthritis.?? She is currently [facility]. ?? 5) Diffuse myalgia and 6) chronic fatigue. The pt's diffuse myalgia, particularly in the setting of bilateral trigger point tenderness on palpation, is consistent with fibromyalgia. It is possible thather myalgia started as the joint pain. She is awaiting results of the skin biopsy to evaluate for per ipheral neuropathy as a case of her diffuse myalgia. In the setting of chronic fatigue, she will also be referred to Sleep Medicine Clinic for further evaluation of possible sleep disorder as a cause of her chronic pain. 7) Severe vitamin D deficiency. The pt is currently on weekly high dose vitamin D supplement for hersevere vitamin D deficiency. She will undergo repeat laboratory studies today. 8) Microcytic anemia. The pt will undergo laboratory studies to evaluate for iron deficiency as a cause of her microcytic anemia. ?? RECOMMENDATIONS: 1) Check labs today. ?? 2) Refer to Sleep Medicine Clinic. 3) Return to follow up in 3 months. ? Jm Camargo MD, PhD documented in this encounter Plan of Treatment Scheduled Referrals Name Type Priority Associated Diagnoses Order S chedule Referral to Sleep Outpatient Referral Routine Chronic fa tigue Ordered: Disorders Center Sleep disturbance 2016 documented as of this encounter Procedures Procedure Name Priority Date/Time Associated Diagnosis Comme nts IRON AND TIBC Routine 01/11/2017 10:07 AM Anemia, unspecified Results for this EDT type procedure are i n the results section. VITAMIN D, Routine 01/11/2017 10:07 AM Vitamin D deficiency Results for this 25-HYDROXY EDT procedure are i n the results section. FERRITIN Routine 01/11/2017 10:07 AM Anemia, unspecified R esults for this EDT type procedure are i n the results section. documented in this encounter Results (ABNORMAL) Ferritin (01/11/2017 10:07 AM EDT) athologist Signature Ferritin 8 (L) 15 - 150 [facility] ng/mL [facility] Comment: Pediatric reference ranges not verified at [facility], interpret with caution. Reference ranges for females greater guerrero n 50 years of age approach values for men, i.e., 30-400 ng/mL. Specimen Anatomical Collection Method Collection Time Receive d Time (Source) Location / / Volume Laterality Blood specimen 01/11/2017 10:07 7 (specimen) AM EDT 10:13 AM EDT Resulting Agency Comment Spec In Lab Jm Camargo MD CHEMISTRY ORDERABLES Performing Organization Address City/State/ZIP Code Phon e Number [address] (ABNORMAL) Iron and TIBC (01/11/2017 10:07 AM EDT) P athologist Signature Iron 12 (L) 30 - 150 [facility] mcg/dL [facility] TIBC 385 250 - [address] [facility] m[facility]/dL [facility] Iron Saturation 3 (L) 20 - 50 % [facility] Specimen Anatomical Collection Method Collection Time Receive d Time (Source) Location / / Volume Laterality Blood specimen 01/11/2017 10: 7 (specimen) AM EDT 10:13 AM EDT Resulting Agency Comment Spec In Lab Jm Camargo MD CHEMISTRY ORDERABLES Performing Organization Address City/[facility]/ZIP Code Phon e Number [address] Vitamin D, 25-Hydroxy (01/11/2017 10:07 AM EDT) P athologist Signature 25-OH Vit D 33 30 - 100 [facility] Total ng/mL [facility] Comment: Deficient <10 ng/mL Insufficient 10 to 29 ng/mL Sufficient 30 to 100 ng/mL Potential Intoxication >100 ng/mL According to the US National Osteoporosi s Foundation, Vitamin D concentrations >30 ng/mL are sufficient to protect bone health. ??The National Kidney Foundation has similarly stated that pat ients with Vitamin D concentrations <30ng/mL should be considered to be insu fficient or deficient. http://Worksoft/DHMCnatlkidneyfoundat ion http://Worksoft/DHMCVitD The [employer] Vitamin D Immunoassay detec ts both 25-OH Vitamin D2 and 25-OH Vitamin D3, but only a total Vitamin D c oncentration is reported. Specimen Anatomical Collection Method Collection Time Receive d Time (Source) Location / / Volume Laterality Blood specimen 01/11/2017 10:07 7 1:20 (specimen) AM EDT PM EDT Resulting Agency Comment Spec In Lab Jm Camargo MD CHEMISTRY ORDERABLES Performing Organization Address City/State/[place] [address] documented in this encounter Visit Diagnoses Diagnosis Anemia, unspecified type Vitamin D deficiency Unspecified vitamin D deficiency Chronic fatigue Other malaise and fatigue Sleep disturbance Sleep disturbance, unspecified documented in this encounter Care Teams Contour Band Saw Operator Vertical Relationship Specialty Start Date End Date Lawson Whitaker MD PCP - General General Internal Medicine 06/11/16 01/16/[address] [place] [id number] documented as of this encounter
--- OUTSIDE RECORDS SUMMARY | 2022-07-09 01:16 | XMS_ITS | Encounter Summary ---
:1975 Author Organization [facility] [place] [address] Care Team Providers Name Role Phone Lawson Whitaker MD Primary Care Provider Encounter Details Date Type Department Care Team Description 09/20/2016 Telephone Rheumatology at [facility] [place] [address] Social History Tobacco Use Types Packs/Day Years Used Date Former Smoker Sex Assigned at Date Recorded Not on file documented as of this encounter Miscellaneous Notes Telephone Encounter - Brenda Raymundo LPN - 09/20/2016 4:13 PM EST ----- Message from Jm Camargo MD sent at 09/20/2016 9:45 AM EST ----- Michael Francis, Could you please let this pt know that she has severe vitamin D deficiency? I faxed a script for 6 +6 + 6 weeks of vitamin D to her local pharmacy. Thanks Jm ++++++ I phoned to let the pt know the above message. documented in this encounter Plan of Treatment Not on filedocumented as of this encounter Visit Diagnoses Not on filedocumented in this encounter Care Teams Flower Grader Relationship Specialty Start Date End Date Lawson Whitaker MD PCP - General General Internal Medicine 06/11/16 01/16/[address] [place] [address] documented as of this encounter
--- OUTSIDE RECORDS SUMMARY | 2022-07-09 01:16 | XMS_ITS | Encounter Summary ---
:1975 Author Organization [facility] [place] [address] Care Team Providers Name Role Phone Lawson Whitaker MD Primary Care Provider Encounter Details Date Type Department Care Team Description 10/28/2016 Telephone Rheumatology at [facility] [place] [address] Social History Tobacco Use Types Packs/Day Years Used Date Former Smoker Sex Assigned at Date Recorded Not on file documented as of this encounter Miscellaneous Notes Telephone Encounter - Brenda Raymundo LPN - 10/28/2016 4:09 PM EST ----- Message from Jm Camargo MD sent at 10/26/2016 10:24 PM EST ----- Michael Francis, Could you please let this pt know that since her EMG studies were normal, I'd like to refer her to see Dr. Elizalde in neurology for a skin biopsy to evaluate for small fiber sensory neuropathy as a cause of her diffuse pain? Thanks Jm documented in this encounter Plan of Treatment Not on filedocumented as of this encounter Visit Diagnoses Not on filedocumented in this encounter Care Teams Portrait Artist Relationship Specialty Start Date End Date Lawson Whitaker MD PCP - General General Internal Medicine 06/11/16 01/16/[address] [place] [phone] documented as of this encounter
--- OUTSIDE RECORDS SUMMARY | 2022-07-09 01:16 | XMS_ITS | Encounter Summary ---
:1975 Author Organization [facility] [address] Care Team Providers Name Role Phone Lawson Whitaker MD Primary Care Provider Encounter Details Date Type Department Care Team Description 04/22/2017 Telephone Hematology and Oncology at Marisa Cason MD [facility] [address] HEMATOLOGY/[place] [address] [place] [address] [phone] (Wo rk) Social History Tobacco Use Types Packs/Day Years Used Date Former Smoker Cigarettes Quit: 01/05/20 03 Smokeless Tobacco: Never Used Alcohol Use Standard Drinks/Week Comments No 0 (1 standard drink = 0.6 oz pure alcoho l) Sex Assigned at Date Recorded Not on file documented as of this encounter Miscellaneous Notes Telephone Encounter - Marisa Cason MD - 04/22/2017 10:00 AM EDT Images from the original note were not included. Received a call from Brandee price NP at [facility]. She has a history of mild asthma requiring multiple hospitalizations. Labs show microcytic anemia compatible with iron def anemia for which she is on iron supplementation ( Hb-11.2 MCV-70.3, Iron -12, Ferritin-8,TIBC-385) . However patient feels she has a thalassemia. Hb Electrophoresis was normal. She is not of /mediterranean/ ancestry. I mentioned that labs are more suggestive of iron def anemia and she would need repletion of iron .However Hb electrophoresis does not rule out alpha thalassemias but testing for this is DNA analysis of the globin gene. We would be happy to see her in hematology clinic for further evaluation of microcytic anemia. Marisa Cason MD Hematology/Oncology Fellow Pager: [phone] documented in this encounter Plan of Treatment Not on filedocumented as of this encounter Visit Diagnoses Not on filedocumented in this encounter Care Teams Item Processor Relationship Specialty Start Date End Date Lawson Whitaker MD PCP - General General Internal Medicine 06/11/16 01/16/[address] [place] [phone] documented as of this encounter
--- OUTSIDE RECORDS SUMMARY | 2022-07-09 01:16 | XMS_ITS | Encounter Summary ---
:1975 Author Organization [facility] Address [facility] [place] [address] Care Team Providers Name Role Phone Lawson Whitaker MD Primary Care Provider Encounter Details Date Type Department Care Team Description 08/01/2017 Orders Only Hematology and Cristy Pelaez, Iron deficiency Oncology at [facility] BRANCH BILLING PAYROLL CLERK anemia, unspecified [facility] iro n deficiency [address] DR anemia type [place], [place] HEMATOLOGY/ONCOLOGY [address] DEPT. [phone] [place], [place] [address] (Wo rk) Social History Tobacco Use Types Packs/Day Years Used Date Former Smoker Cigarettes Quit: 01/05/20 03 Smokeless Tobacco: Never Used Alcohol Use Standard Drinks/Week Comments No 0 (1 standard drink = 0.6 oz pure alcoho l) Sex Assigned at Date Recorded Not on file documented as of this encounter Plan of Treatment Not on filedocumented as of this encounter Results (ABNORMAL) Ferritin (08/05/2017 2:13 PM EDT) P athologist Signature Ferritin 158 (H) 15 - 150 [place]O V[facility]ZQUE[facility] ng/mL [facility] Comment: Pediatric reference ranges not verified at [facility], interpret with caution. Reference ranges for females greater guerrero n 50 years of age approach values for men, i.e., 30-400 ng/mL. Specimen Anatomical Collection Method Collection Time Receive d Time (Source) Location / / Volume Laterality Blood specimen 08/05/2017 2:13 PM 017 2:52 (specimen) EDT PM EDT Resulting Agency Comment Spec In Lab Cristy Pelaez APRN CHEMISTRY ORDERABLES Performing Organization Address City/State/[place] [address] Iron and TIBC (08/05/2017 2:13 PM EDT) P athologist Signature Iron 60 30 - 150 [facility] mcg/dL [facility] TIBC 274 250 - 450 [facility] mcg/dL [facility] Iron Saturation 22 20 - 50 % [facility] Specimen Anatomical Collection Method Collection Time Receive d Time (Source) Location / / Volume Laterality Blood specimen 08/05/2017 2:13 PM 017 2:52 (specimen) EDT PM EDT Resulting Agency Comment Spec In Lab Cristy Pelaez APRN CHEMISTRY ORDERABLES Performing Organization Address City/[facility]/[place] [address] documented in this encounter Visit Diagnoses Diagnosis Iron deficiency anemia, unspecified iron deficiency anemia type documented in this encounter Care Teams Electrical Wiring Lineman Relationship Specialty Start Date End Date Lawson Whitaker MD PCP - General General Internal Medicine 06/11/16 01/16/[address] [place] [address] documented as of this encounter
--- OUTSIDE RECORDS SUMMARY | 2022-07-09 01:16 | XMS_ITS | Encounter Summary ---
:1975 Author Organization [facility] [place] [address] Care Team Providers Name Role Phone Lawson Whitaker MD Primary Care Provider Encounter Details Date Type Department Care Team Description 09/16/2017 Telephone Sleep Center at [facility] Denice Carlson [address] [place] [address] Social History Tobacco Use Types Packs/Day Years Used Date Former Smoker Cigarettes Quit: 01/05/20 03 Smokeless Tobacco: Never Used Alcohol Use Standard Drinks/Week Comments No 0 (1 standard drink = 0.6 oz pure alcoho l) Sex Assigned at Date Recorded Not on file documented as of this encounter Miscellaneous Notes Telephone Encounter - Denice Carlson - 09/16/2017 10:59 AM EST Please write the sleep study order for your patient, scheduled on 09/21. Thank you, Denice documented in this encounter Plan of Treatment Not on filedocumented as of this encounter Visit Diagnoses Not on filedocumented in this encounter Care Teams Teacher Emotionally Impaired Relationship Specialty Start Date End Date Lawson Whitaker MD PCP - General General Internal Medicine 06/11/16 01/16/[address] [place] [phone] documented as of this encounter
--- OUTSIDE RECORDS SUMMARY | 2022-07-09 01:16 | XMS_ITS | Encounter Summary ---
:1975 Author Organization [facility] [address] Care Team Providers Name Role Phone Lawson Whitaker MD Primary Care Provider Encounter Details Date Type Department Care Team Description 01/11/2017 Telephone Rheumatology at [facility] [place] [address] Social History Tobacco Use Types Packs/Day Years Used Date Former Smoker Cigarettes Quit: 01/05/20 03 Smokeless Tobacco: Never Used Alcohol Use Standard Drinks/Week Comments No 0 (1 standard drink = 0.6 oz pure alcoho l) Sex Assigned at Date Recorded Not on file documented as of this encounter Miscellaneous Notes Telephone Encounter - Brenda Raymundo LPN - 01/11/2017 4:21 PM EDT ?? Michael Francis, Could you please let this pt know that she has severe iron deficiency as a cause of her small red blood cell? ??I already faxed a script for iron to her pharmacy. Thanks Jm ++++++++++++++++++++++++++ I have called her to let her know the above message. documented in this encounter Plan of Treatment Not on filedocumented as of this encounter Visit Diagnoses Not on filedocumented in this encounter Care Teams Nurses Assistant Relationship Specialty Start Date End Date Lawson Whitaker MD PCP - General General Internal Medicine 06/11/16 01/16/[address] [place] [phone] documented as of this encounter
--- OUTSIDE RECORDS SUMMARY | 2022-07-09 01:16 | XMS_ITS | Encounter Summary ---
:1975 Author Organization [facility] [place] [address] Care Team Providers Name Role Phone Lawson Whitaker MD Primary Care Provider Encounter Details Date Type Department Care Team Description 06/17/2017 Hospital Encounter Hematology and Anemia, unspecified Oncology at [facility] [place] [address] Social History Tobacco Use Types Packs/Day Years Used Date Former Smoker Cigarettes Quit: 01/05/20 03 Smokeless Tobacco: Never Used Alcohol Use Standard Drinks/Week Comments No 0 (1 standard drink = 0.6 oz pure alcoho l) Sex Assigned at Date Recorded Not on file documented as of this encounter Medications at Time of Discharge Medication Sig Dispensed Refills Start Date End Date albuterol (PROVENTIL) Take 2.5 mg by 0 [...] [place] OTC) 55 mcg route daily. Aerosol, [place] ferrous sulfate 325 mg Take 1 tablet by 180 tablet 3 017 06/26/2020 (65 mg iron) Tablet mouth 2 times daily (after meals). ergocalciferol Take 1 capsule by 6 capsule 2 09/20/201602/2019 (ERGOCALCIFEROL) 50,000 mouth once a week. unit Capsule ALPRAZolam (XANAX) 0.25 Take 0.25 mg by mouth 0 0 06/08/2016 06/14/2019 mg Tablet as needed. sertraline (ZOLOFT) 100 Take 150 mg by mouth 0 05/31/2019 mg Tablet daily. documented as of this encounter Plan of Treatment Not on filedocumented as of this encounter Procedures Procedure Name Priority Date/Time Associated Comments Diagnosis TISSUE TRANSGLUTAMINASE Routine 06/17/2017 11:06 Results for this AB IGA AM EDT procedure are i n the results section. CELIAC SEROLOGY CASCADE Routine 06/17/2017 11:06 Anemia, unspe cified Results for this AM EDT type procedure are i n the results section. SCAN, PERIPHERAL BLOOD Routine 06/17/2017 11:06 R esults for this AM EDT procedure are i n the results section. HEMOGRAM Routine 06/17/2017 11:06 Anemia, unspecified Resu lts for this AM EDT type procedure are i n the results section. DIFFERENTIAL, AUTOMATED Routine 06/17/2017 11:06 Anemia, unspe cified Results for this AM EDT type procedure are i n the results section. CBC (WITH DIFF) Routine 06/17/2017 11:06 Anemia, unspecified AM EDT type FERRITIN Routine 06/17/2017 11:06 Anemia, unspecified Resu lts for this AM EDT type procedure are i n the results section. documented in this encounter Results Tissue Transglutaminase Ab IgA (06/17/2017 11:06 AM EDT) athologist Signature TTG IgA Ab <1.2 <4.0 [facility] (Negative) [facility] LABORATORY Comment: Test Performed by: [address] [address] Specimen Anatomical Collection Method Collection Time Receive d Time (Source) Location / / Volume Laterality Blood specimen 06/17/2017 11:06 7 (specimen) AM EDT 12:25 PM EDT Resulting Agency Comment Spec In Lab Mariah Mccollum MD CHEMISTRY ORDERABLES Performing Organization Address City/[facility]/ZIP Code Phon e Number [address] Scan, Peripheral Blood (06/17/2017 11:06 AM EDT) [facility] GeaCom Method Time Signature Plat Estimate Increased [facility] LABORATORY RBC Morphology Abnormal [facility] Microcytes 1-5 /HPF [facility] LABORATORY Ovalocytes 1-5 /HPF [facility] LABORATORY Specimen Anatomical Collection Method Collection Time Receive d Time (Source) Location / / Volume Laterality Blood specimen 06/17/2017 11:06 7 (specimen) AM EDT 11:12 AM EDT Resulting Agency Comment Spec In Lab Mariah Mccollum MD HEMATOLOGY ORDERABLES Performing Organization Address City/[facility]/ZIP Code Phon e Number [address] (ABNORMAL) Differential, Automated (06/17/2017 11:06 AM EDT) [facility] Method Time Signature Neutrophils % 66.6 % [facility] LABORATORY Neutr Abs (ANC) 7.14 (H) 1.70 - [facility] 6.10 [facility] x10(3)/[facility] L LABORATORY Lymphocytes % 20.2 % [facility] LABORATORY Lymphocytes Abs 2.2 0.9 - 3.2 [facility] x10(3)/[facility] LABORATORY Monocytes % 6.8 % [facility] LABORATORY Monocyte Abs 0.7 0.3 - 0.9 [facility] x10(3)/[facility] LABORATORY Eosinophils % 5.4 % [facility] LABORATORY Eosinophils Abs 0.6 (H) 0.0 - 0.4 [facility] x10(3)/[facility] LABORATORY Basophils % 0.5 % [facility] LABORATORY Basophils Abs 0.0 0.0 - 0.1 [facility] x10(3)/[facility] LABORATORY Immature Gran % 0.50 % [facility] LABORATORY Comment: Immature granulocytes(IG's)percentage an d absolute count will include metamyelocytes, myelocytes, and promyelo cytes. Blood smears from CBCs yielding IG's will be scanned manually for concor dance. If this scan disagrees with the automated IG or if promyelocytes are not ed, a manual differential will be performed. Gayle Gran Abs 0.05 (H) 0.00 - 0.04 x10(3)/[facility] LABORATORY Specimen Anatomical Collection Method Collection Time Receive d Time (Source) Location / / Volume Laterality Blood specimen 06/17/2017 11:06 7 (specimen) AM EDT 11:12 AM EDT Resulting Agency Comment Spec In Lab Mariah Mccollum MD HEMATOLOGY ORDERABLES Performing Organization Address City/State/ZIP Code Phon e Number [place] [id number] LAB[address]ORY Drive (ABNORMAL) Hemogram (06/17/2017 11:06 AM EDT) Analysis Performed At Patho logist Time Signature WBC 10.7 (H) 4.0 - 9.5 [facility] x10(3)/[facility] LABORATORY RBC 5.36 (H) 4.00 - [facility] 5.21 [facility] x10(6)/[facility] LABORATORY Hemoglobin 11.5 (L) 11.7 - [facility] 15.5 gm/dL [facility] LABORATORY Hematocrit 39.0 35.7 - [facility] ЮЛИЯ 45.8 % [facility] LABORATORY MCV 72.8 (L) 82.6 - [facility] ЮЛИЯ 94.4 [facility] LABORATORY MCH 21.5 (L) 27.1 - [facility] 32.0 pg [facility] LABORATORY MCHC 29.5 (L) 31.7 - [facility] 35.0 gm/dL [facility] LABORATORY Platelets 407 (H) 145 - 357 [facility] x10(3)/[facility] LABORATORY RDWSD 52.3 (H) 37.0 - [facility] 46.0 [facility] LABORATORY RDWCV 20.2 (H) 11.5 - [facility] [place] 14.1 % [facility] LABORATORY MPV 9.6 7.6 - 12.9 [facility] LABORATORY nRBC % Auto 0.0 % [facility] LABORATORY nRBC Abs Auto 0.000 0.000 - [facility] [place] 0.000 [facility] x10(3)/[facility] LABORATORY Specimen Anatomical Collection Method Collection Time Receive d Time (Source) Location / / Volume Laterality Blood specimen 06/17/2017 11:06 7 (specimen) AM EDT 11:12 AM EDT Resulting Agency Comment Spec In Lab Mariah Mccollum MD HEMATOLOGY ORDERABLES Performing Organization Address City/State/[place] [address] Celiac Sero [place] (06/17/2017 11:06 AM EDT) Component Value Ref Test Analysis Performed At [facility] gist Range Method Time Signature Celiac Sero [facility] Test ?Result ?Flag ??Unit ?? RefValue [place] [facility] Celiac Disease Serology [facility] ??Immunoglobulin A (IgA), S ? 301 ? mg/dL ??61 - 356 LABORATORY ??Celiac Disease Interpretation ? SEE COMME NTS ?Negative serology. Celiac disease unlikely. However, ?approximately 10% of patients with celiac disease are ?seronegative. Also, patients who are already adhering to a ?gluten-free diet may be seronegative. If celiac diseas e is ?highly clinically suspected, consider HLA-DQ typing. ?Test Performed by: ?[facility] ?[address] [place] [address] Specimen Anatomical Collection Method Collection Time Receive d Time (Source) Location / / Volume Laterality Blood specimen 06/17/2017 11:06 7 (specimen) AM EDT 12:25 PM EDT Resulting Agency Comment Spec In Lab Mariah Mccollum MD CHEMISTRY ORDERABLES Performing Organization Address City/[facility] [place] [address] (ABNORMAL) Ferritin (06/17/2017 11:06 AM EDT) athologist Signature Ferritin 7 (L) 15 - 150 [facility] ng/mL [facility] LABORATORY Comment: Pediatric reference ranges not verified at [facility], interpret with caution. Reference ranges for females greater guerrero n 50 years of age approach values for men, i.e., 30-400 ng/mL. Specimen Anatomical Collection Method Collection Time Receive d Time (Source) Location / / Volume Laterality Blood specimen 06/17/2017 11:06 7 (specimen) AM EDT 11:13 AM EDT Resulting Agency Comment Spec In Lab Mariah Mccollum MD CHEMISTRY ORDERABLES Performing Organization Address City/[facility] [place] [address] documented in this encounter Visit Diagnoses Diagnosis Anemia, unspecified type documented in this encounter Care Teams Hemodialysis Technician Relationship Specialty Start Date End Date Lawson Whitaker MD PCP - General General Internal Medicine 06/11/16 01/16/[address] [place] [address] documented as of this encounter
--- OUTSIDE RECORDS SUMMARY | 2022-07-09 01:16 | XMS_ITS | Encounter Summary ---
:1975 Author Organization [facility] [place] [address] Care Team Providers Name Role Phone Lawson Whitaker MD Primary Care Provider Reason for Visit Consultation (Routine) - Closed Specialty Diagnoses / Procedures Referred By Contact Refer red To Contact Neurology Diagnoses Diffuse pain Numbness and tingling Jm Camargo MD [facility] Neurology [address] [place] [address] [facility] [place] [address] [place] [address] Referral ID Status Reason Start Date Expiration Date Visits V isits Requested Authorized [id number] Closed Consult, 10/26/2016 10/26/2017 1 1 Test & Treat Encounter Details Date Type Department Care Team Description 01/04/2017 Procedure visit Neurology at [facility] Tico Elizalde [facility] MD Kathleen neuropathy [place], [place] [address] NEUROLOGY DEPT. [phone] [place], [place] [address] Social History Tobacco Use Types Packs/Day Years Used Date Former Smoker Cigarettes Quit: 01/05/20 03 Smokeless Tobacco: Never Used Alcohol Use Standard Drinks/Week Comments No 0 (1 standard drink = 0.6 oz pure alcoho l) Sex Assigned at Date Recorded Not on file documented as of this encounter Last Filed Vital Signs Vital Sign Reading Time Taken Comments Blood Pressure 97/69 01/04/2017 9:12 AM EDT Pulse 79 01/04/2017 9:12 AM EDT Temperature - - Respiratory Rate - - Oxygen Saturation - - Inhaled Oxygen Concentration - - Weight 91.6 kg (202 lb) 01/04/2017 9:12 AM EDT Height 156.2 cm (5' 1.5) 01/04/2017 9:12 AM EDT report ed Body Mass Index 37.55 01/04/2017 9:12 AM EDT documented in this encounter Progress Notes Tico Elizalde MD - 01/04/2017 9:30 AM EDT Malu De here for for bilevel skin biopsy at the request of Dr. Jm Camargo for question of small fiber neuropathy. Patient identified. Consent form signed. Timeout conducted.to verify correct procedure and correct patient and all relevant clinical information. Skin was prepped with betadine at hip and ankle in left leg. 2 cc of 1% lidocaine with epi was injected at both sites. With a 3mm skin punch, two specimens were acquired without complication. Hemostasis was obtained with pressure. Samples put in preservative and taken to lab.for processing. Patient tolerated the procedure with no obvious complication. We reviewed the risks of infection, bleeding and pain prior to the procedure. documented in this encounter Plan of Treatment Not on filedocumented as of this encounter Procedures Procedure Name Priority Date/Time Associated Diagnosis Comme [facility] SURGICAL PATHOLOGY Routine 01/04/2017 12:44 PM Re sults for this REPORT EDT procedure are i n the results section. [facility] Routine 01/04/2017 9:45 AM Results f or this EDT procedure are i n the results section. [facility] Routine 01/04/2017 9:45 AM Results f or this EDT procedure are i n the results section. documented in this encounter Results Surgical Pathology Report (01/04/2017 12:44 PM EDT) Component Value Ref Test Analysis Performed At [facility] Method Time Signature Surgical [id number] ?Location: [address] [place] [address] Report The signing pathologist has (i) examined the relevant preparation(s) for the [facility] specimen(s) and (ii) rendered or confirmed the diagnosis(es) . HOSPITAL LABORATORY . ? Addendum ADDENDUM DISCUSSION SPECIAL TEST PERFORMED: Test: ??Sweat Gland Nerve Fiber Density Test [facility] Case: ??[id number] Performing Lab: ??[facility] Performing Lab Case: ??[id number] Reported by Jennifer Barnes MD Date reported: ??01/17/2017 For the full text of the [facility] reports please refer to Non- Documentation Pathology in the electronic health record (eDH). Electronically signed by: ??Emmy Bhandari MD Verified: ??01/19/2017 ?Pathologist ? Addendum ADDENDUM DISCUSSION SPECIAL TEST PERFORMED: Test: ??Epidermal Nerve Fiber Density Test [facility] Case: ??[id number] Performing Lab: ??[facility] Performing Lab Case: ??[id number] Reported by Shyla Mccurdy MD Date reported: ??01/11/2017 For the full text of the [facility] reports please refer to Non- Documentation Pathology in the electronic health record (eDH). Electronically signed by: ??Emmy Bhandari MD Verified: ??01/13/2017 ?Pathologist ?Surgic al Pathology DIAGNOSIS Received are 2 skin punch bi opsies [facility]. ??See separate report from [facility]. Electronically signed by: ??Emmy Bhandari MD Verified: ??01/04/2017 ?Pathologist DISCUSSION No histologic sections are performed at [facility]. CLINICAL INFORMATION Specimen Submitted: Received are 2 skin punch bi opsies which are submitted to [facility] for epidermal nerve fiber density testing. ??See separate report from [facility]. Clinical History: _ . SPECIMEN PROCESSING Received are 2 skin punch bi opsies which are submitted to [facility] for epidermal nerve fiber density testing. [facility] [address] [place] [address] ??[id number] Specimen (Source) Anatomical Collection Method Collection Time Re ceived Time Location / / Volume Laterality 01/04/2017 12:44 PM EDT Tico Elizalde MD PATHOLOGY/CYTOLOGY ORDERABLE S Performing Organization Address City/[facility] Phon e Number [address] [facility] Sendout (01/04/2017 9:45 AM EDT) athologist Signature [facility] Sendout See Note [facility] LABORATORY Comment: The ordered test is: Sweat Gland Nerve F iber Density Test performed by: Johnna diallo; [address] [place] [address] See Scanned Report. Specimen Anatomical Collection Method Collection Time Receive d Time (Source) Location / / Volume Laterality Specimen of Other / Unknown 01/04/2017 9:45 AM 2016 2:10 unknown material EDT PM EDT (specimen) Narrative This result has an attachment that is no t available. Tico Elizalde MD CHEMISTRY ORDERABLES Performing Organization Address City/[facility] [place] [address] [facility] Sendout (01/04/2017 9:45 AM EDT) P athologist Signature [facility] Sendout See Note [facility] LABORATORY Comment: The ordered test is: Epidermal Nerve Fib er Density Test performed by: Johnna Villanuevaol imani; [address] [place] [id number] See Scanned Report. Specimen Anatomical Collection Method Collection Time Receive d Time (Source) Location / / Volume Laterality Specimen of Other / Unknown 01/04/2017 9:45 AM 2016 1:07 unknown material EDT PM EDT (specimen) Narrative This result has an attachment that is no t available. Tico Elizalde MD CHEMISTRY ORDERABLES Performing Organization Address City/State/ZIP [place] [address] documented in this encounter Visit Diagnoses Diagnosis Small fiber neuropathy Unspecified hereditary and idiopathic pe ripheral neuropathy documented in this encounter Care Teams Pole Shaver Helper Relationship Specialty Start Date End Date Lawson Whitaker MD PCP - General General Internal Medicine 06/11/16 01/16/[address] [place] [address] documented as of this encounter
--- OUTSIDE RECORDS SUMMARY | 2022-07-09 01:16 | XMS_ITS | Encounter Summary ---
:1975 Author Organization [facility] [place] [address] Care Team Providers Name Role Phone Lawson Whitaker MD Primary Care Provider Encounter Details Date Type Department Care Team Description 03/25/2017 Telephone Rheumatology at [facility] [place] [address] Social History Tobacco Use Types Packs/Day Years Used Date Former Smoker Cigarettes Quit: 01/05/20 03 Smokeless Tobacco: Never Used Alcohol Use Standard Drinks/Week Comments No 0 (1 standard drink = 0.6 oz pure alcoho l) Sex Assigned at Date Recorded Not on file documented as of this encounter Miscellaneous Notes Telephone Encounter - Brenda Raymundo LPN - 03/25/2017 3:30 PM EDT Pt phones to ask about getting a refill for the VIT D and Dr Camargo let me know that for now she will not need a refill. I have given her the phone number to the sleep clinic and she will call and schedule an appointment. documented in this encounter Plan of Treatment Not on filedocumented as of this encounter Visit Diagnoses Not on filedocumented in this encounter Care Teams Balancing Machine Operator Relationship Specialty Start Date End Date Lawson Whitaker MD PCP - General General Internal Medicine 06/11/16 01/16/[address] [address] documented as of this encounter
--- OUTSIDE RECORDS SUMMARY | 2022-07-09 01:16 | XMS_ITS | Encounter Summary ---
:1975 Author Organization [facility] [place] [address] Care Team Providers Name Role Phone Lawson Whitaker MD Primary Care Provider Encounter Details Date Type Department Care Team Description 09/13/2016 Hospital Encounter [place] [facility] Jm Camargo, Neck pain; [address] [place] Chronic midline low back pain without sc iatica [facility] [address] CENTER [phone] [place] [address] Social History Tobacco Use Types Packs/Day Years [...] [place] OTC) 55 mcg route daily. Aerosol, [place] ALPRAZolam (XANAX) 0.25 Take 0.25 mg by mouth 0 0 06/08/2016 06/14/2019 mg Tablet as needed. sertraline (ZOLOFT) 100 Take 150 mg by mouth 0 05/31/2019 mg Tablet daily. documented as of this encounter Plan of Treatment Not on filedocumented as of this encounter Procedures Procedure Name Priority Date/Time Associated Diagnosis Comme nts XR CERVICAL, Routine 09/13/2016 12:14 PM Neck pain Results for this THORACIC AND LUMBAR EST Chronic midline low p rocedure are in SPINE AP AND LAT back pain without the re sults sciatica section. documented in this encounter Results XR Cervical Thoracic & Lumbar Spine AP & Lat (09/13/2016 12:14 PM EST) Anatomical Region Laterality Modality N/A Digital Radiography Specimen (Source) Anatomical Location Collection Method / Collectio n Time Received Time / Laterality Volume Impressions 09/13/2016 2:02 PM EST 1. ??No vertebral body fracture. 2. ??Loss of normal cervical lordosis. 3. ??L5-S1 minimal facet arthropathy. Narrative 09/13/2016 2:02 PM EST EXAMINATION: XR CERVICAL THORACIC AND LUMBAR SPINE AP AND LAT CLINICAL HISTORY: neck pain + upper back pain + low back pain TECHNIQUE: ? COMPARISON: None FINDINGS: Cervical spine- C1 to bottom of C6 are visualized. There is loss of normal cervical lordosis. Vertebral bodies: Normal vertebral heigh t. No vertebral fracture. Disk spaces: Normal. Soft tissues: Normal. ?? Alignment: No subluxation Thoracic spine- No fracture. Normal disc height and pedi cles. Lumbar spine- Number of lumbar-type vertebrae: 5 Vertebral bodies: Normal vertebral heigh t. No vertebral fracture. Tiny osteophytes arise from scattered vertebr al bodies. There is minimal L5-S1 facet arthropathy. Disk spaces: Normal. Soft tissues: Normal. ?? Alignment: No subluxation Procedure Note Romana Ceja MD - 09/13/2016Formatt ing of this note might be different from the original. EXAMINATION: XR CERVICAL THORACIC AND SIMA MBAR SPINE AP AND LAT CLINICAL HISTORY: neck pain + upper back pain + low back pain TECHNIQUE: COMPARISON: None FINDINGS: Cervical spine- C1 to bottom of C6 are visualized. There is loss of normal cervical lordosis. Vertebral bodies: Normal vertebral heigh t. No vertebral fracture. Disk spaces: Normal. Soft tissues: Normal. Alignment: No subluxation Thoracic spine- No fracture. Normal disc height and pedi cles. Lumbar spine- Number of lumbar-type vertebrae: 5 Vertebral bodies: Normal vertebral heigh t. No vertebral fracture. Tiny osteophytes arise from scattered vertebr al bodies. There is minimal L5-S1 facet arthropathy. Disk spaces: Normal. Soft tissues: Normal. Alignment: No subluxation IMPRESSION 1. No vertebral body fracture. 2. Loss of normal cervical lordosis. 3. L5-S1 minimal facet arthropathy. Jm Camargo MD IMG DX ORDERABLES documented in this encounter Visit Diagnoses Diagnosis Neck pain Cervicalgia Chronic midline low back pain without sc iatica documented in this encounter Care Teams Gear Changer Relationship Specialty Start Date End Date Lawson Whitaker MD PCP - General General Internal Medicine 06/11/16 01/16/[address] [place] [address] documented as of this encounter
--- OUTSIDE RECORDS SUMMARY | 2022-07-09 01:16 | XMS_ITS | Encounter Summary ---
:1975 Author Organization [facility] [place] [address] Care Team Providers Name Role Phone Brandee Fuchs APRN Primary Care Provider Reason for Visit Reason Onset Date Comments Medication Refill 02/23/2017 Encounter Details Date Type Department Care Team Description 02/23/2017 [place] [facility] Monique Mistry I, [place] [address] Social History Tobacco Use Types Packs/Day [...] on filedocumented in this encounter Care Teams Sap Hana Developer Relationship Specialty Start Date End Date Brandee Fuchs, MAVIS PCP - General Family Medicine 01/17/19 [address] [place], [place] [address] documented as of this encounter
--- OUTSIDE RECORDS SUMMARY | 2022-07-09 01:16 | XMS_ITS | Encounter Summary ---
:1975 Author Organization [facility] [place] [address] Care Team Providers Name Role Phone Lawson Whitaker MD Primary Care Provider Reason for Referral Consultation (Routine) - Closed Specialty Diagnoses / Procedures Referred By Contact Refer red To Contact Neurology Diagnoses Diffuse pain Numbness and tingling Jm Camargo MD [facility] 3c [facility] D [facility] [place] [address] [place] [address] Referral ID Status Reason Start Date Expiration Date Visits V isits Requested Authorized [id number] Closed Consult, 10/26/2016 10/26/2017 1 1 Test & Treat Encounter Details Date Type Department Care Team Description 10/26/2016 Orders Only Rheumatology at [facility] Jm Camargo, Diffuse pain; [facility] [place] [address] RHEUMAT[address] DEP T. [place], [place] [address] Social History Tobacco Use Types Packs/Day Years Used Date Former Smoker Sex Assigned at Date Recorded Not on file documented as of this encounter Plan of Treatment Scheduled Referrals Name Type Priority Associated Diagnoses Order S chedule Referral to Outpatient Referral Routine Diffuse pain Ordered: Neurology Numbness and 10/26/2016 tingling documented as of this encounter Visit Diagnoses Diagnosis Diffuse pain Generalized pain Numbness and tingling Disturbance of skin sensation documented in this encounter Care Teams Coal Chute Worker Relationship Specialty Start Date End Date Lawson Whitaker MD PCP - General General Internal Medicine 06/11/16 01/16/[address] [place] [id number] documented as of this encounter
--- OUTSIDE RECORDS SUMMARY | 2022-07-09 01:16 | XMS_ITS | Encounter Summary ---
:1975 Author Organization [facility] [place] [address] Care Team Providers Name Role Phone Lawson Whitaker MD Primary Care Provider Encounter Details Date Type Department Care Team Description 09/20/2016 Orders Only Rheumatology at [facility] Jm Camargo [place] [facility] [address] RHEUMATOLOGY DEPT. [phone] [place], [place] [address] (Wo rk) Social History Tobacco Use Types Packs/Day Years Used Date Former Smoker Sex Assigned at Date Recorded Not on file documented as of this encounter Plan of Treatment Not on filedocumented as of this encounter Visit Diagnoses Not on filedocumented in this encounter Care Teams Color Mixer Relationship Specialty Start Date End Date Lawson Whitaker MD PCP - General General Internal Medicine 06/11/16 01/16/[address] [place] [id number] documented as of this encounter
--- OUTSIDE RECORDS SUMMARY | 2022-07-09 01:16 | XMS_ITS | Encounter Summary ---
:1975 Author Organization [facility] [place] [address] Care Team Providers Name Role Phone Lawson Whitaker MD Primary Care Provider Reason for Visit Reason Onset Date Comments Medication Management 07/04/2017 Medical Care Coordination 07/04/2017 Encounter Details Date Type Department Care Team Description 07/04/2017 Telephone Hematology and Oncology Isa Foster, Medication Management; at [facility] [address] Social History Tobacco Use Types Packs/Day Years Used Date Former Smoker Cigarettes Quit: 01/05/20 03 Smokeless Tobacco: Never Used Alcohol Use Standard Drinks/Week Comments No 0 (1 standard drink = 0.6 oz pure alcoho l) Sex Assigned at Date Recorded Not on file documented as of this encounter Miscellaneous Notes Telephone Encounter - Isa Foster RN - 07/04/2017 12:26 PM EDT RN received call from Dionne electrical and instrumentation mechanic room nurse at [facility] reporting that pt is there for 2nd dose of venofer this afternoon. When pt arrived for appt today she reports experiencing n/v/d for the 12hrs immediately following her first dose of vernofer on 06/27/17. Pt was due to come in on 07/01/17 for 2nd dose of venofer, but canceled appt, the reason is not known. Dionne is asking if we want to change anything before she starts 2nd venofer dose today. This RN instructed Dionne to proceed with 2nd dose of venofer and instruct pt to call [phone] if n/v/d develop. Dionne verbalized understanding and is in agreement with plan. Dr. Mccollum is aware and in agreement. documented in this encounter Plan of Treatment Not on filedocumented as of this encounter Visit Diagnoses Not on filedocumented in this encounter Care Teams Dukey Rider Relationship Specialty Start Date End Date Lawson Whitaker MD PCP - General General Internal Medicine 06/11/16 01/16/[address] [place] [address] documented as of this encounter
--- OUTSIDE RECORDS SUMMARY | 2022-07-09 01:16 | XMS_ITS | Encounter Summary ---
:1975 Author Organization [facility] [place] [address] Care Team Providers Name Role Phone Lawson Whitaker MD Primary Care Provider Encounter Details Date Type Department Care Team Description 11/01/2016 Telephone Rheumatology at [facility] [place] [address] Social History Tobacco Use Types Packs/Day Years Used Date Former Smoker Sex Assigned at Date Recorded Not on file documented as of this encounter Miscellaneous Notes Telephone Encounter - Brenda Raymundo LPN - 11/02/2016 9:29 AM EST ----- Message from Jm Camargo MD sent at 10/26/2016 10:24 PM EST ----- Michael Francis, Could you please let this pt know that since her EMG studies were normal, I'd like to refer her to see Dr. Elizalde in neurology for a skin biopsy to evaluate for small fiber sensory neuropathy as a cause of her diffuse pain? Thanks Jm Telephone Encounter - Brenda Raymundo LPN - 11/01/2016 8:57 AM EST ?? Could you please let this pt know that since her EMG studies were normal, I'd like to refer her to see Dr. Elizalde in neurology for a skin biopsy to evaluate for small fiber sensory neuropathy as a cause of her diffuse pain? ?? Thanks ??+++++++++++++++++ I have made several attempts to Malu, left a message to call me back so that I can relay the message above from Dr Camargo. +++++++++++++ I spoke with Malu and she already has an appointment set up with Dr Elizalde for a skin biopsy. documented in this encounter Plan of Treatment Not on filedocumented as of this encounter Visit Diagnoses Not on filedocumented in this encounter Care Teams Chronometer Assembler Relationship Specialty Start Date End Date Lawson Whitaker MD PCP - General General Internal Medicine 06/11/16 01/16/[address] [place] [address] documented as of this encounter
--- OUTSIDE RECORDS SUMMARY | 2022-07-09 01:16 | XMS_ITS | Encounter Summary ---
:1975 Author Organization [facility] [place] [address] Care Team Providers Name Role Phone Brandee Fuchs APRN Primary Care Provider Reason for Referral Physical Therapy (Routine) - Closed Specialty Diagnoses / Procedures Referred By Contact Refer red To Contact Diagnoses Hypermobility arthralgia Chronic midline low back pain without sciatica Berkley Hernán[place] [address] Referral ID Status Reason Start Date Expiration Date Visits V isits Requested Authorized [id number] Closed Evaluate and 06/14/2019 12/11/2019 12 12 Treat Reason for Visit Consultation - Specialty Diagnoses / Procedures Referred By Contact Refer red To Contact Rheumatology Diagnoses JOINT PAIN, NECK PAIN, BACK PAIN, ANEMIA, IRON DEFICIENCY Brandee Fuchs APRN [facility] 5c [address] [place] [address] [place] [address] Fax: Referral ID Status Reason Start Date Expiration Date Visits V isits Requested Authorized [id number] Consult, 01/31/2019 01/31/2020 6 6 Test & Treat Connection Center Encounter Details Date Type Department Care Team Description 06/14/2019 Office Visit Rheumatology at [facility] Berkley Hernández, Sacroiliac pain; [facility] 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 Hypermobility arthralgia; [facility] Chronic midline low back kacey n without sciatica; [place] [address] Pedersen, unspecified joint; [phone] [place], [place] [address] Myalgia, other site Social History Tobacco Use Types Packs/Day Years Used Date Former Smoker Cigarettes Quit: 01/05/20 03 Smokeless Tobacco: Never Used Alcohol Use Standard Drinks/Week Comments No 0 (1 standard drink = 0.6 oz pure alcoho l) Sex Assigned at Date Recorded Not on file documented as of this encounter Last Filed Vital Signs Vital Sign Reading Time Taken Comments Blood Pressure 104/70 06/14/2019 9:57 AM EDT Pulse 65 06/14/2019 9:57 AM EDT Temperature 36.8 ??C (98.2 ??F) 06/14/2019 9:57 AM EDT Respiratory Rate - - Oxygen Saturation 98% 06/14/2019 9:57 AM EDT Inhaled Oxygen Concentration - - Weight 82.1 kg (181 lb) 06/14/2019 9:57 AM EDT Height 157.5 cm (5' 2) 06/14/2019 9:57 AM EDT Body Mass Index 33.11 06/14/2019 9:57 AM EDT documented in this encounter Patient Instructions Patient InstructionsBerkley Hernández APRN - 06/14/2019 10:00 AM EDT 3T today for xray Follow-through with sleep study Physical therapy referral made today Consider a TENS unit for your back We can consider trying a medication or referral to pain clinic at the next visit [place] EDS specialist: Lily Denton documented in this encounter Progress Notes Berkley Hernández APRN - 06/14/2019 10:00 AM EDT Rheumatology Progress Note HPI / Rheum Hx: -FMS, hypermobility, ?EDS type III -neck pain, low back pain, polyarthralgia -was supposed to have sleep study -RF, CCP, HLA-B27 neg -EMG wnl 2017, skin bx at that time as well but no reported path results -chronic LATHA, txed with infusion which helped but poor tolerance Interval Hx: Malu De is a 43 y.o. female [...] subsequently referred to the Rheumatology Clinic at [facility] for further evaluation. ROS: General reports random [...] boyfriend who smokes.?? 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 ?? FAMILY HISTORY: Mother - Diabetes mellitus II; alive at the age of 60. ?? Father - Chronic alcoholism; of heart and liver failure at the age of 50. Physical Exam: BP 104/70 Pulse 65 Temp 36.8 ??C (98.2 ??F) Ht 157.5 cm (5' 2) Wt 82.1 kg (181 lb) SpO2 98% BMI 33.11 kg/m?? General: AAOx3, NAD, pleasant HEENT: Mucous membranes are moist, no oral mucosal ulcerations Neck: Supple, no lymphadenopathy, full range of motion. Cardiovascular: RR, (-)murmurs, rubs, or gallops. Lungs: Clear to auscultation bilaterally. (-)R/R/W Back: TTP down the length of spine, worse at lumbar, FROM Neuro: Alert and oriented x3. Skin: (-)ulcers, (-)rash Extremities Shoulders: FROM, non-tender to palpation Elbows: Slight hyperextension, no swelling, FROM Wrists: FROM, no swelling, non-tender Hands: No synovitis, no MCP compression tenderness, full claw and fist Hips: FROM, normal eric TTP SIJ bl, schobers wnl Knees: (-)effusions, non-tender ROM Ankles: FROM, non-tender, no swelling Feet: no MTP compression tenderness Many FMS tenderpoints, including at posterior neck, back, chest, bue, ble Hypermobility findings: No thumb to forearm, no knee hyperextension, no palm to floor +Hypermobility at 5th digits and elbows Does not meet Beighton's Criteria Studies: 2016 Cervical spine C1 to bottom of [...] No synovitis on exam. Multiple fms tenderpoints. She inquires about EDS dx. Discussed that [facility] does not offer EDS testing for adults, but that we can certainly explore ways to help manage joint pain and manifestations of hypermobile joints. I did give her the name of Dr. Lily Cruz at [facility] is she wanted to pursue a formal dx. Might be necessaryfor social security. Plan: -SIJ pain: SIJ xr with possible f/u MRI to further evaluate and help r/o seroneg spondy. No pso/ibd/inflammatory eye sxs/pattern of inflammatory back pain. Could consider referral to Pain Clinic based on results, injections. -Hypermobility and diffuse arthralgia: External PT referral made. Would like to go to [facility] in [place]. Consider pool therapy in future as well. 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 Discussed the importance of sleep and exercise in managing FMS. Discussed thepossibility of trying medication like gabapentin or lyrica in the future. Elavil, cymbalta, muscle relaxants haven't worked or hasn't tolerated -LBP: reviewed xr results from 2016. Trial tens unit. Referral to PT. RTC in 2 months documented in this encounter Plan of Treatment Scheduled Referrals Name Type Priority Associated Diagnoses Order S chedule Referral to Outpatient Referral Routine Hypermobility Ordered : Physical Therapy arthralgia 06/14/2019 Chronic midline low back pain without sciatica documented as of this encounter Visit Diagnoses Diagnosis Sacroiliac pain Disorders of sacrum Arthralgia, unspecified joint Chronic midline low back pain without sc iatica Myalgia, other site documented in this encounter Care Teams Field Pipelines Supervisor Relationship Specialty Start Date End Date Brandee Fuchs APRN PCP - General Family Medicine 01/17/19 [address] [place] [address] documented as of this encounter
--- OUTSIDE RECORDS SUMMARY | 2022-07-09 01:16 | XMS_ITS | Encounter Summary ---
:1975 Author Organization [facility] [place] [address] Care Team Providers Name Role Phone Lawson Whitaker MD Primary Care Provider Encounter Details Date Type Department Care Team Description 08/05/2017 Telephone Hematology and Oncology at Mariah Mccollum MD [facility] [address] HEMATOLOGY/[place] [address] [place] [address] [phone] (Wo rk) Social History Tobacco Use Types Packs/Day Years Used Date Former Smoker Cigarettes Quit: 01/05/20 03 Smokeless Tobacco: Never Used Alcohol Use Standard Drinks/Week Comments No 0 (1 standard drink = 0.6 oz pure alcoho l) Sex Assigned at Date Recorded Not on file documented as of this encounter Miscellaneous Notes Telephone Encounter - Mariah Mccollum MD - 08/05/2017 3:45 PM EDT Left a message. hgb and MCV are good. Ferritin is pending. documented in this encounter Plan of Treatment Not on filedocumented as of this encounter Visit Diagnoses Not on filedocumented in this encounter Care Teams Planning Manager Relationship Specialty Start Date End Date Lawson Whitaker MD PCP - General General Internal Medicine 06/11/16 01/16/[address] [place] [address] documented as of this encounter
--- OUTSIDE RECORDS SUMMARY | 2022-07-09 01:16 | XMS_ITS | Encounter Summary ---
:1975 Author Organization [facility] [place] [address] Care Team Providers Name Role Phone Lawson Whitaker MD Primary Care Provider Reason for Referral Consultation (Routine) - Specialty Diagnoses / Procedures Referred By Contact Refer red To Contact Sleep Center Diagnoses Apnea Gasping for breath Hypersomnia Emma Johnson MD [facility] Sleep Medicine Procedures PRG POLYSOM 6+ YRS SLEEP W 4+ ADDL DARIO ATTND [facility] [address] [place] [address] [place] [address] Referral ID Status Reason Start Date Expiration Date Visits V isits Requested Authorized [id number] Test Only 08/29/2017 11/29/2017 1 1 Reason for Visit Consultation (Routine) - Closed Specialty Diagnoses / Procedures Referred By Contact Refer red To Contact Sleep Center Diagnoses Chronic fatigue Sleep disturbance Jm Camargo MD [facility] Sleep Medicine [facility] [address] [place] [address] [place] [address] Referral ID Status Reason Start Date Expiration Date Visits V isits Requested Authorized [id number] Closed Consult, 01/11/2017 01/11/2018 1 1 Test & Treat Encounter Details Date Type Department Care Team Description 08/17/2017 Office Visit Sleep Center at Emma Johnson MD Apnea (Primary Dx); [facility] Gasping for breath; [address] Hypersomnia [place], [place] SLEEP DISORDERS [address] CENTER [phone] [place], [place] [address] (Wo rk) Social History Tobacco [...] Sign Reading Time Taken Comments Blood Pressure 117/73 08/17/2017 2:09 PM EST Pulse 74 08/17/2017 2:09 PM EST Temperature - - Respiratory Rate - - Oxygen Saturation 96% 08/17/2017 2:09 PM EST Inhaled Oxygen Concentration - - Weight 94.3 kg (208 lb) 08/17/2017 2:09 PM EST Height 157.5 cm (5' 2) 08/17/2017 2:09 PM EST Body Mass Index 38.04 08/17/2017 2:09 PM EST documented in this encounter Progress Notes Emma Johnson MD - 08/17/2017 2:00 PM EST Sleep Medicine Consultation Note HPI: Ms. Malu De is a 41 y.o. female seen at the request of Dr. Camargo for advice regarding suspected obstructive sleep apnea in the setting of chronic fatigue and sleep disturbances. She was found to have a microcytic anemia, low ferritin levels with correction of HgB with iron supplementation (possible thalassemia). She also has a history of asthma and has been referred to pulmonary. She has pain which is interrupting her sleep. Sleeps weird hours- seems up half the night and so in the afternoon may catch up. Very restless sleeper. Doesn't feel like sleep is restful and sometimes feels more tired in the morning. Harder time breathing. notes apneas. Wakes up SOB at night. Throat feels like it is closing up.Wakes up from a sleep, can't talk or breath Has GERD and takes omeprazole. Has ended up in the emergency room. Partner gets nebulizer. Has called EMS. Emotionally terrifying. Gets hot, heart pounding, suffocating feeling. Lasts into wakefulness, 15 min or more. Been diagnosed with asthma, but can take 8 nebs without improvement. Has referral to pulmonary that is upcoming. Sleep Apnea Risk: Snoring: yes Severity: can be really loud, can be terrible Frequency: most nights, can vary in loudness Duration: most of life Over time: getting worse Modifying factors: really tired, makes it worse Observed Apneas: yes, snorts Mouth Breathing: sometimes Dry Mouth: sometimes Nocturnal Gasping: yes Nasal Obstruction: sometimes Weight: gaining, sometimes in her life just lost Sleep Pattern: Location: bedroom Bed/Recliner/Wedge: bed # of pillows under head: 3 Position: sides (hips hurt), back (neck hurts), prone (worse breathing) Bedtime: into bed at 10 - 11 imani Latency: 3 hrs Awakenings: wakes often Out of bed at 10:30 am Napping: afternoon - 2 hrs is typical Daytime Symptoms: [place]: 8 Upon Awakening: still tired Daytime fatigue/sleepiness: yes Naps: yes Involuntary Dozing: yes, Driving: not driving, hand hurt Close calls related to sleepiness: not driving Accidents related to sleepiness: not driving Sleep Review of Symptoms Parasomnias: Sleep Walking: yes, looking for something at the bedside, cooking (not a while), knows she asleep, a few weeks ago, no injuries Dream Enactment: no Motor: Moves legs during her sleep Narcolepsy: Hallucinations: not asked Paralysis: not asekd Cataplexy: not asked ROS: CON: weight change: see HPI ENT: nasal obstruction: see HPI NEURO: sleep related headaches: no CV: chest pain: no Palpitations: yes LE edema: no PUL: CLEMENT: yes PSY: Depression: yes Anxiety: yes GI: GERD: yes, treated : Nocturia: no MSK: Pain: yes ALL: Environmental Allergies: dust, mold, cats Outpatient Prescriptions Marked as Taking for the 08/17/17 encounter (Office Visit) with Dennis Johnson MD Medication Sig Dispense Refill ??? albuterol (PROVENTIL) [...] (NASACORT OR NASACORT OTC) 55 mcg Aerosol, [place] 2 sprays by Nasal route daily. Family History: Family history of sleep disorders: no Past Medical History: Diagnosis Date ??? Asthma ??? Fatigue ??? GERD (gastroesophageal reflux disease) ??? GERD (gastroesophageal reflux disease) Anemia Patient Active Problem List Diagnosis Code ??? Asthma J45.909 Social History: Alcohol: no Smoking: no Other drugs: no Caffeine: coffee, few cups Family: [facility], 20 yr daughter and 13 yr son, dog PE: BP 117/73 Pulse 74 Ht 157.5 cm (5' 2) Wt 94.3 kg (208 lb) SpO2 96% BMI 38.04 kg/m2 General: alert, pleasant, accompanied by her Eyes: Conjunctivae: clear EOM: full ENT: MP: 4, large tonsils (3 +) without exudates, large tongue. Pul: Respirations: NAD Auscultation: + wheezes. Neck/Lymphatics: Circumference: 15 Cardiac: HS: RRR Neuro: alert, normal speech Musculoskeletal: Gait and stance: normal Following exam, developed dyspnea, required nebulizer. Appeared distressed. O2 95% and HR 66 bpm after the first nebulizer. Assessment: Ms. Malu De is a 41 y.o. female who is seen to evaluate for possible obstructivesleep apnea in the setting of disrupted sleep, awakening from sleep with acute SOB, witnessed apneas, and reports of sleep walking. Her symptoms of dyspnea seem to persist beyond the immediate time of waking suggesting sleep apnea is not the only contributing issue. Some of her nocturnal symptoms seemto suggest laryngospasm (sudden awakenings, panicked, can't move air or speak) and she also has a history of GERD with ongoing symptoms. However, her also describes more typical events to suggest sleep apnea as well. 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 She has reports of sleep walking - I did not confirm the timing, but the description seemed to suggest a NREM phenomenon. She is at risk for RBD with her use of Zoloft. For all these reasons and her history of severe asthma, home sleep testing is contraindicated and in lab sleep testing is recommended. The pathophysiology of, the reasons to treat and treatment options for obstructive sleep apnea were all reviewed with the patient today. Recommendations: 1) Polysomnography - in lab due to reports of severe asthma, RBD montage for reported behaviors, to stay 2) I encouraged her to keep the upcoming pulmonary appointment. The patient indicates understanding of these issues and agrees with the plan. Emma Johnson MD Patient confirms that study results can be called to [phone] and a detailed phone message left if not available to answer. documented in this encounter Plan of Treatment Scheduled Referrals Name Type Priority Associated Diagnoses Order S chedule Referral to Sleep Outpatient Referral Routine Apnea Ordered: Disorders Center Gasping for eduin ath 08/17/2017 Hypersomnia documented as of this encounter Visit Diagnoses Diagnosis Apnea - Primary Gasping for breath Hypersomnia Hypersomnia, unspecified documented in this encounter Care Teams Patent Searcher Relationship Specialty Start Date End Date Lawson Whitaker MD PCP - General General Internal Medicine 06/11/16 01/16/[address] [place] [address] documented as of this encounter
--- OUTSIDE RECORDS SUMMARY | 2022-07-09 01:16 | XMS_ITS | Encounter Summary ---
:1975 Author Organization [facility] [place] [address] Care Team Providers Name Role Phone Lawson Whitaker MD Primary Care Provider Encounter Details Date Type Department Care Team Description 06/17/2017 Telephone Hematology and Oncology at Mariah Mccollum MD [facility] [place] HEMATOLOGY/[place] [address] [place] [address] [phone] (Wo rk) Social History Tobacco Use Types Packs/Day Years Used Date Former Smoker Cigarettes Quit: 01/05/20 03 Smokeless Tobacco: Never Used Alcohol Use Standard Drinks/Week Comments No 0 (1 standard drink = 0.6 oz pure alcoho l) Sex Assigned at Date Recorded Not on file documented as of this encounter Miscellaneous Notes Telephone Encounter - Mariah Mccollum MD - 06/17/2017 1:12 PM EDT Left a message to vinod lme back. Will need Iron repletion. documented in this encounter Plan of Treatment Not on filedocumented as of this encounter Visit Diagnoses Not on filedocumented in this encounter Care Teams Physician Executive Relationship Specialty Start Date End Date Lawson Whitaker MD PCP - General General Internal Medicine 06/11/16 01/16/[address] [place] [address] documented as of this encounter
--- OUTSIDE RECORDS SUMMARY | 2022-07-09 01:16 | XMS_ITS | Encounter Summary ---
:1975 Author Organization [facility] [place] [address] Care Team Providers Name Role Phone Lawson Whitaker MD Primary Care Provider Encounter Details Date Type Department Care Team Description 08/05/2017 Hospital Encounter Hematology and Iron de ficiency anemia, Oncology at [facility] unspecified iron [facility] [place] [address] Social History Tobacco Use Types Packs/Day [...] NASACORT OTC) 55 mcg route daily. Aerosol, [place] ferrous sulfate 325 mg Take 1 tablet [...] Date/Time Associated Diagnosis Comme nts SCAN, PERIPHERAL STAT 08/05/2017 2:13 PM Resul ts for this BLOOD EDT procedure are i n the results section. HEMOGRAM STAT 08/05/2017 2:13 PM Iron deficiency Result s for this EDT anemia, unspecified procedur e are in iron deficiency the results anemia type section. DIFFERENTIAL, STAT 08/05/2017 2:13 PM Iron deficiency Resul ts for this AUTOMATED EDT anemia, unspecified procedur e are in iron deficiency the results anemia type section. IRON AND TIBC STAT 08/05/2017 2:13 PM Iron deficiency Resul ts for this EDT anemia, unspecified procedur e are in iron deficiency the results anemia type section. CBC (WITH DIFF) STAT 08/05/2017 2:13 PM Iron deficiency EDT anemia, unspecified iron deficiency anemia type FERRITIN STAT 08/05/2017 2:13 PM Iron deficiency Result s for this EDT anemia, unspecified procedur e are in iron deficiency the results anemia type section. documented in this encounter Results Scan, Peripheral Blood (08/05/2017 2:13 PM EDT) [facility] Method Time Signature Plat Estimate Increased [facility] RBC Morphology Abnormal [facility] Microcytes 1-5 /HPF [facility] Hypochromia Slight [facility] Ovalocytes 1-5 /HPF [facility] Giant Platelets Less than 1 /HPF [facility] Specimen Anatomical Collection Method Collection Time Receive d Time (Source) Location / / Volume Laterality Blood specimen 08/05/2017 2:13 PM 017 2:52 (specimen) EDT PM EDT Resulting Agency Comment Spec In Lab Cristy Pelaez EMPLOYEE RELATIONS ADVISOR HEMATOLOGY ORDERABLES Performing Organization Address City/State/ZIP [place] [address] (ABNORMAL) Differential, Automated (08/05/2017 2:13 PM EDT) [facility] Method Time Signature Neutrophils % 59.3 % [facility] Neutr Abs (ANC) 5.13 1.70 - [facility] 6.10 [facility] x10(3)/[facility] LABORATORY Lymphocytes % 25.9 % [facility] Lymphocytes Abs 2.2 0.9 - 3.2 [facility] x10(3)/[facility] LABORATORY Monocytes % 6.6 % [facility] Monocyte Abs 0.6 0.3 - 0.9 [facility] x10(3)/[facility] LABORATORY Eosinophils % 7.4 % [facility] Eosinophils Abs 0.6 (H) 0.0 - 0.4 [facility] x10(3)/[facility] LABORATORY Basophils % 0.5 % [facility] Basophils Abs 0.0 0.0 - 0.1 [facility] x10(3)/[facility] LABORATORY Immature Gran % 0.30 % [facility] Comment: Immature granulocytes(IG's)percentage an d absolute count will include metamyelocytes, myelocytes, and promyelo cytes. Blood smears from CBCs yielding IG's will be scanned manually for concor dance. If this scan disagrees with the automated IG or if promyelocytes are not ed, a manual differential will be performed. Gayle Gran Abs 0.03 0.00 - 0.04 x10(3)/[facility] Y [facility] Specimen Anatomical Collection Method Collection Time Receive d Time (Source) Location / / Volume Laterality Blood specimen 08/05/2017 2:13 PM 017 2:52 (specimen) EDT PM EDT Resulting Agency Comment Spec In Lab Cristy Pelaez APRN HEMATOLOGY ORDERABLES Performing Organization Address City/State/ZIP [place] [address] (ABNORMAL) Hemogram (08/05/2017 2:13 PM EDT) P athologist Signature WBC 8.6 4.0 - 9.5 [facility] x10(3)/[facility] LABORATORY RBC 5.65 (H) 4.00 - 5.21 [facility] x10(6)/[facility]ATORY Comment: Dimorphic RBC population. Hemoglobin 14.3 11.7 - 15.5 gm/dL [facility] Hematocrit 45.8 35.7 - 45.8 % [facility] MCV 81.1 (L) 82.6 - 94.4 fL [facility] MCH 25.3 (L) 27.1 - 32.0 pg [facility] MCHC 31.2 (L) 31.7 - 35.0 gm/dL [facility] Platelets 373 (H) 145 - 357 x10(3)/[facility] LABORATORY RDWSD Not Measured 37.0 - 46.0 fL [facility] RDWCV Not Measured 11.5 - 14.1 % [facility] MPV 9.5 7.6 - 12.9 fL [facility] nRBC % Auto 0.0 % [facility] nRBC Abs Auto 0.000 0.000 - 0.000 x10(3)/[facility] LABORATORY Specimen Anatomical Collection Method Collection Time Receive d Time (Source) Location / / Volume Laterality Blood specimen 08/05/2017 2:13 PM 017 2:52 (specimen) EDT PM EDT Resulting Agency Comment Spec In Lab Cristy Pelaez APRN HEMATOLOGY ORDERABLES Performing Organization Address City/State/ZIP [place] [address] (ABNORMAL) Ferritin (08/05/2017 2:13 PM EDT) athologist Signature Ferritin 158 (H) 15 - 150 [place] ng/mL [facility] Comment: Pediatric reference ranges not verified at [facility], interpret with caution. Reference ranges for females greater guerrero n 50 years of age approach values for men, i.e., 30-400 ng/mL. Specimen Anatomical Collection Method Collection Time Receive d Time (Source) Location / / Volume Laterality Blood specimen 08/05/2017 2:13 PM 017 2:52 (specimen) EDT PM EDT Resulting Agency Comment Spec In Lab Cristy Pelaez APRN CHEMISTRY ORDERABLES Performing Organization Address [facility]/ZIP [facility] Phon e Number [address] Iron and TIBC (08/05/2017 2:13 PM EDT) athologist Signature Iron 60 30 - 150 [facility] ЮЛИЯ mcg/dL [facility] TIBC 274 250 - 450 [facility] ЮЛИЯ mcg/dL [facility] Iron Saturation 22 20 - 50 % [facility] Specimen Anatomical Collection Method Collection Time Receive d Time (Source) Location / / Volume Laterality Blood specimen 08/05/2017 2:13 PM 017 2:52 (specimen) EDT PM EDT Resulting Agency Comment Spec In Lab Cristy Pelaez APRN CHEMISTRY ORDERABLES Performing Organization Address City/[facility]/ZIP [facility] [place] [address] documented in this encounter Visit Diagnoses Diagnosis Iron deficiency anemia, unspecified iron deficiency anemia type documented in this encounter Care Teams Program Manager Transportation Relationship Specialty Start Date End Date Lawson Whitaker MD PCP - General General Internal Medicine 06/11/16 01/16/19 [address] [place] [address] documented as of this encounter
--- OUTSIDE RECORDS SUMMARY | 2022-07-09 01:16 | XMS_ITS | Encounter Summary ---
:1975 Author Organization [facility] [place] [address] Care Team Providers Name Role Phone Lawson Whitaker MD Primary Care Provider Reason for Visit Consultation (Routine) - Closed Specialty Diagnoses / Procedures Referred By Contact Refer red To Contact Hematology and Oncology Diagnoses Brandee Dominguez, INFORMATION TECHNOLOGY ADVISOR [facility] Hem Onc [address] [place], [place] [address] [place] [phone] Phone: Fax: Referral ID Status Reason Start Date Expiration Date Visits Requ ested Visits Authorized [id number] Closed 04/25/2017 04/25/2018 1 1 Encounter Details Date Type Department Care Team Description 06/17/2017 Office Visit Hematology and Gabby Mccollum, Anemia, unspecified Oncology at [facility] MD type [facility] CAROLYNN Jim HEMATOLOGY/ONCOLOG [address] Y [phone] [place], [place] [address] Social History Tobacco Use Types Packs/Day Years Used Date Former Smoker Cigarettes Quit: 01/05/20 03 Smokeless Tobacco: Never Used Alcohol Use Standard Drinks/Week Comments No 0 (1 standard drink = 0.6 oz pure alcoho l) Sex Assigned at Date Recorded Not on file documented as of this encounter Last Filed Vital Signs Vital Sign Reading Time Taken Comments Blood Pressure 112/67 06/17/2017 10:38 AM EDT Pulse 86 06/17/2017 10:36 AM EDT Temperature - - Respiratory Rate 16 06/17/2017 10:36 AM EDT Oxygen Saturation 94% 06/17/2017 10:36 AM EDT Inhaled Oxygen Concentration - - Weight 95.6 kg (210 lb 12.8 oz) 06/17/2017 10:36 AM EDT Height 155 cm (5' 1.02) 06/17/2017 10:36 AM EDT Body Mass Index 39.8 06/17/2017 10:36 AM EDT documented in this encounter Progress Notes Gabby Mccollum MD - 06/17/2017 10:00 AM EDT Heme/Onc Outpatient Consultation Date of Consultation: 06/17/17 Reason for Consult: We are seeing this patient at the request of Brandee Roger, MAVIS [address] [place], [place] [address]for the evaluation of . I have reviewed the available records, interviewed and examined the patient. HPI Malu De is a 41 y.o. [...] Outpatient Prescriptions Medication Sig Dispense Refill ??? ferrous sulfate 325 mg (65 mg iron) Tablet Take 1 tablet by mouth 2 times daily (after meals). 180 tablet 3 ??? ergocalciferol (ERGOCALCIFEROL) 50,000 unit Capsule Take 1 capsule by mouth once a week. 6 capsule 2 ??? albuterol (PROVENTIL) 2.5 mg /3 mL (0.083 %) Solution for Nebulization Take 2.5 mg by nebulization as needed. 0 ??? ALPRAZolam (XANAX) 0.25 mg Tablet Take 0.25 mg by mouth as needed. 0 ??? montelukast (SINGULAIR) 10 [...] (NASACORT OR NASACORT OTC) 55 mcg Aerosol, [place] 2 sprays by Nasal route daily. No [...] symptoms Dermatological ROS: negative Physical Exam BP 112/67 Pulse 86 Resp 16 Ht 155 cm (5' 1.02) Wt 95.6 kg (210 lb 12.8 oz) SpO2 94% BMI39.8 kg/m2 General Appearance: Alert, cooperative, no distress, [...] curvature, ROM normal, no CVA tenderness Lungs: Clear to auscultation bilaterally, respirations unlabored Heart: Regular rate and rhythm, S1 and [...] hour(s)) Hemogram Result Value Ref Range WBC 10.7 (H) 4.0 - 9.5 x10(3)/mcL RBC 5.36 (H) 4.00 - 5.21 x10(6)/mcL Hemoglobin 11.5 (L) 11.7 - 15.5 gm/dL Hematocrit 39.0 35.7 - 45.8 % MCV 72.8 (L) 82.6 - 94.4 fL MCH 21.5 (L) 27.1 - 32.0 pg MCHC 29.5 (L) 31.7 - 35.0 gm/dL Platelets 407 (H) 145 - 357 x10(3)/mcL RDWSD 52.3 (H) 37.0 - 46.0 fL RDWCV 20.2 (H) 11.5 - 14.1 % MPV 9.6 7.6 - 12.9 fL nRBC % Auto 0.0 % nRBC Abs Auto 0.000 0.000 - 0.000 x10(3)/mcL Differential, Automated Result Value Ref Range Neutrophils % 66.6 % Neutr Abs (ANC) 7.14 (H) 1.70 - 6.10 x10(3)/mcL Lymphocytes % 20.2 % Lymphocytes Abs 2.2 0.9 - 3.2 x10(3)/mcL Monocytes % 6.8 % Monocyte Abs 0.7 0.3 - 0.9 x10(3)/mcL Eosinophils % 5.4 % Eosinophils Abs 0.6 (H) 0.0 - 0.4 x10(3)/mcL Basophils % 0.5 % Basophils Abs 0.0 0.0 - 0.1 x10(3)/mcL Immature Gran % 0.50 % Gayle Gran Abs 0.05 (H) 0.00 - 0.04 x10(3)/mcL Scan, Peripheral Blood Result Value Ref Range Plat Estimate Increased RBC Morphology Abnormal Microcytes 1-5 /HPF Ovalocytes 1-5 /HPF Assessment and Plan Malu De is a 41 y.o. female with iron deficiency anemia. There was some concern that he might have an underlying alpha thalassemia. Hemoglobin electrophoresis was normal. -microcytic anemia persists -Ferritin remains in the single digits -Celiac serology is pending given her GI symptoms (chronic diarrhea) GABBY MCCOLLUM MD 06/17/2017 Gabby Mccollum MD - 06/17/2017 10:00 AM EDT Images from the original note were not included. N [facility] HEMATOLOGY AND ONCOLOGY AT [facility] [phone] Date: 06/17/17 Patient Name: Malu De : 1975 Diagnosis: Iron deficiency anemia Referral to [site]: [facility] Orders: ? Electrolyte replacement: [x] Venofer 200mg IV twice a week x 5 doses Signature: GABBY MCCOLLUM MD beeper # [id number] Co-signature [if needed]: documented in this encounter Plan of Treatment Not on filedocumented as of this encounter Results Celiac Sero [place] (06/17/2017 11:06 AM EDT) Component Value Ref Test Analysis Performed At [facility] gist Range Method Time Signature Celiac Sero JAIRO [place] Test ?Result ?Flag ??Unit ?? RefValue [facility] Celiac Disease Serology [place] [facility] ??Immunoglobulin A (IgA), S ? 301 ? mg/dL ??61 - 356 LABORATORY ??Celiac Disease Interpretation ? SEE COMME NTS ?Negative serology. Celiac disease unlikely. However, ?approximately 10% of patients with celiac disease are ?seronegative. Also, patients who are already adhering to a ?gluten-free diet may be seronegative. If celiac diseas e is ?highly clinically suspected, consider HLA-DQ typing. ?Test Performed by: ?[facility] ?[address] [place] [address] Specimen Anatomical Collection Method Collection Time Receive d Time (Source) Location / / Volume Laterality Blood specimen 06/17/2017 11:06 7 (specimen) AM EDT 12:25 PM EDT Resulting Agency Comment Spec In Lab Gabby Mccollum MD CHEMISTRY ORDERABLES Performing Organization Address City/State/ZIP [place] [address] (ABNORMAL) Ferritin (06/17/2017 11:06 AM EDT) P athologist Signature Ferritin 7 (L) 15 - 150 [facility] ng/mL [facility] Comment: Pediatric reference ranges not verified at [facility], interpret with caution. Reference ranges for females greater guerrero n 50 years of age approach values for men, i.e., 30-400 ng/mL. Specimen Anatomical Collection Method Collection Time Receive d Time (Source) Location / / Volume Laterality Blood specimen 06/17/2017 11:06 7 (specimen) AM EDT 11:13 AM EDT Resulting Agency Comment Spec In Lab Gabby Mccollum MD CHEMISTRY ORDERABLES Performing Organization Address City/State/[place] [address] documented in this encounter Visit Diagnoses Diagnosis Anemia, unspecified type documented in this encounter Care Teams Mother Tester Relationship Specialty Start Date End Date Lawson Whitaker MD PCP - General General Internal Medicine 06/11/16 01/16/[address] [place] [address] documented as of this encounter
--- OUTSIDE RECORDS SUMMARY | 2022-07-09 01:16 | XMS_ITS | Encounter Summary ---
:1975 Author Organization [facility] [place] [address] Care Team Providers Name Role Phone Lawson Whitaker MD Primary Care Provider Reason for Visit Reason Onset Date Comments Medical Care Coordination 06/20/2017 Encounter Details Date Type Department Care Team Description 06/20/2017 Telephone Hematology and Oncology Isa Foster, Medical Care at [facility] [place] [address] Social History Tobacco Use Types Packs/Day Years Used Date Former Smoker Cigarettes Quit: 01/05/20 03 Smokeless Tobacco: Never Used Alcohol Use Standard Drinks/Week Comments No 0 (1 standard drink = 0.6 oz pure alcoho l) Sex Assigned at Date Recorded Not on file documented as of this encounter Miscellaneous Notes Telephone Encounter - Isa Foster RN - 06/20/2017 4:41 PM EDT Message received from city secretary: Injection/Infusion Referral Call placed to [facility] @ [phone] Sol garcia/ TYRELL Services to be provided for pt are: VENOFER 2/WK FOR 5 doses CLAUDE SANTILLAN confirmed they would provide services to pt and would contact with appointment time. Pt orders faxed to [phone]. documented in this encounter Plan of Treatment Not on filedocumented as of this encounter Visit Diagnoses Not on filedocumented in this encounter Care Teams Doweling Machine Operator Relationship Specialty Start Date End Date Lawson Whitaker MD PCP - General General Internal Medicine 06/11/16 01/16/[address] [place] [phone] documented as of this encounter
--- OUTSIDE RECORDS SUMMARY | 2022-07-09 01:16 | XMS_ITS | Encounter Summary ---
:1975 Author Organization [facility] [place] [address] Care Team Providers Name Role Phone Lawson Whitaker MD Primary Care Provider Encounter Details Date Type Department Care Team Description 01/04/2017 Hospital Encounter Laboratory [facility] [place] [address] NEUROLOGY DEPT. [place], [place] [address] (Wo rk) Social History Tobacco [...] 11/2015 10 mg Tablet daily. omeprazole (PRILOSEC) 40 Take 40 mg by mouth 0 mg Capsule, Delayed daily. Release(E.C.) BREO ELLIPTA 200-25 Inhale 1 puff into 1 07/14/20 16 mcg/dose Disk with the lungs daily. Device SPIRIVA RESPIMAT 1.25 Inhale 2 puffs into 1 07/14 mcg/actuation Mist the lungs daily. triamcinolone (NASACORT 2 sprays by Nasal 0 OR NASACORT OTC) 55 mcg route daily. Aerosol, [place] ergocalciferol Take 1 capsule by 6 capsule [...] on filedocumented in this encounter Care Teams Engineering Technical Writer Relationship Specialty Start Date End Date Lawson Whitaker MD PCP - General General Internal Medicine 06/11/16 01/16/[address] [place] [phone] documented as of this encounter
--- OUTSIDE RECORDS SUMMARY | 2022-07-09 01:16 | XMS_ITS | Encounter Summary ---
:1975 Author Organization [facility] [place] [address] Care Team Providers Name Role Phone Lawson Whitaker MD Primary Care Provider Encounter Details Date Type Department Care Team Description 10/18/2016 External Results Neurology at [facility] Camron Abbasi MD [facility] [place] [address] NEUROLOGY DEPT. [phone] [place], [place] [address] (Wo rk) Social History Tobacco Use Types Packs/Day Years Used Date Former Smoker Sex Assigned at Date Recorded Not on file documented as of this encounter Plan of Treatment Not on filedocumented as of this encounter Procedures Procedure Name Priority Date/Time Associated Diagnosis Comme nts EMG SCAN Routine 10/18/2016 documented in this encounter Results Scan Doc: EMG (10/18/2016) Narrative This result has an attachment that is no t available. Camron Abbasi MD MEDIA MGR SCAN EXT ORDR/RSLT documented in this encounter Visit Diagnoses Not on filedocumented in this encounter Care Teams Camp Dining Room Attendant Relationship Specialty Start Date End Date Lawson Whitaker MD PCP - General General Internal Medicine 06/11/16 01/16/[address] [place] [phone] documented as of this encounter
--- OUTSIDE RECORDS SUMMARY | 2022-07-09 01:17 | XMS_ITS | Encounter Summary ---
:1975 Author Organization [facility] [place] [address] Care Team Providers Name Role Phone Lawson Whitaker MD Primary Care Provider Reason for Referral Consultation (Routine) - Closed Specialty Diagnoses / Procedures Referred By Contact Refer red To Contact Genetics Diagnoses Arthralgia, unspecified joint Hypermobile joints hypermobile joints + poor wound healing. Please evaluate for EDS III Jm Camargo MD Dinulos, Annie Alonso MD [facility] RHEUMATOLOGY DEPT. GENETICS & [place] [address] [place] [address] Phone: Fax: Referral ID Status Reason Start Date Expiration Date Visits V isits Requested Authorized [id number] Closed Consult, 09/13/2016 12/06/2017 1 1 Test & Treat Reason for Visit Reason Comments Referral Consultation (Routine) - Specialty Diagnoses / Procedures Referred By Contact Refer red To Contact Rheumatology Diagnoses asthma exacerbations//posible thalesemia//fibromyalgia Brandee Fuchs APRN [facility] Rheumatology 5c Procedures consult [address] [place] [id number] Referral ID Status Reason Start Date Expiration Date Visits V isits Requested Authorized [id number] 07/20/2016 07/20/2017 1 1 Encounter Details Date Type Department Care Team Description 09/13/2016 [place] [facility] [place]m Camargo, Neck pain; [facility] Chronic midline low back pain without sc iatica; Drive [facility] Diffuse pain; [place] [address] [facility] Arthralgia, unspecified joint; [phone] RHEUMATOLOGY Hypermobile [facility] DEPT. [place], [place] [address] Social History Tobacco Use Types Packs/Day Years Used Date Former Smoker Sex Assigned at Date Recorded Not on file documented as of this encounter Last Filed Vital Signs Vital Sign Reading Time Taken Comments Blood Pressure 109/61 09/13/2016 11:15 AM EST Pulse 83 09/13/2016 11:15 AM EST Temperature 37 ??C (98.6 ??F) 09/13/2016 11:15 AM EST Respiratory Rate - - Oxygen Saturation 95% 09/13/2016 11:15 AM EST Inhaled Oxygen Concentration - - Weight 87.1 kg (192 lb) 09/13/2016 11:15 AM EST Height 156.2 cm (5' 1.5) 09/13/2016 11:15 AM EST Body Mass Index 35.69 09/13/2016 11:15 AM EST documented in this encounter Patient Instructions Patient InstructionsJm Camargo MD - 09/13/2016 10:00 AM EST 1) Check labs today. 2) Get X-ray of the total spine today. 3) Refer to Genetics Clinic. 4) Refer to Neurology Clinic. 5) Return to follow up in 4-6 weeks. documented in this encounter Progress Notes Jm Camargo MD - 09/13/2016 10:00 AM EST REASON FOR VISIT: Consultation for neck pain, low back pain, and multiple joint pain. HISTORY OF PRESENT ILLNESS: The pt was a 40-year-old female, who presented for a consultation of neck pain, low back pain, and multiple joint pain upon request of her primary care provide Brandee Fuchs APRN. The pt noted that she initially developed upper back pain without any inciting cause such as fall, injuries, or trauma about two years ago. The back pain soon spread to low back and multiple joints, including hips, shoulders, knees, and then ankles. Overall, the pain was worst in her upper back, followed by the neck, hips, shoulders, legs, and then arms. She denied any joint swelling, but she did complain of morning stiffness of the whole body that lasted all day. She was subsequently put on a multitude of agent s, including amitriptyline, tramadol, and muscle relaxants, for symptomatic pain relief, but she felt minimal pain relief with these agents. She was subsequently referred to the [place] [facility] [place]. PAST MEDICAL HISTORY: Asthma S/p (2003) S/p tubal ligation (2003) S/p left oophorectomy (2003) MEDICATIONS: I reviewed pt's medication entries on electronic record. ALLERGIES: NKDA SOCIAL HISTORY: Cigarettes: 1/2 ppd x 12 years (quit at the age of 28). Pt denied any use of alcohol or illicit drugs. She was single, with two children. She was currently living with her boyfriend. 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 FAMILY HISTORY: Mother - Diabetes mellitus II; alive at the age of 60. Father - Chronic alcoholism; of heart and liver failure at the age of 50. REVIEW OF SYSTEMS: Constitutional - + Chronic fatigue, + weight gain; no fever, chills, or night sweat. Cardiovascular - + Leg swelling; no chest pain or palpitations. Pulmonary - + Dyspnea on moderate exertion, + wheezes, + PND; no shortness of breath, cough, orthopnea, or hemoptysis. Gastrointestinal - Normal appetite; difficulty swallowing; no heartburn, acid reflux, nausea, vomiting, diarrhea, abdominal pain, or dark/bloody stool. Genitourinary - No dysuria, incontinence, frequency, or nocturia. Endocrine - No thyroid dysfunction, diabetes, heat/cold intolerance, or polydipsia. Hematological - No anemia, easy bruising, or blood clots. Musculoskeletal - + Neck pain, + low back pain, + multiple joint pain, + diffuse pain, + morning stiffness of the whole body x all day; no joint swelling or Raynaud's phenomenon. Dermatological - No rash, oral ulcers, dry eyes, dry mouth, eye photosensitivity, hair loss, or external lesions. Neurological - + Dizziness, + numbness/tingling sensation in legs; no headache, lightheadedness, vision change, seizure, or syncope. Psychiatric - + Anxiety; no depression or psychosis. PHYSICAL EXAMINATION: Vitals 09/13/2016 SYSTOLIC 109 DIASTOLIC 61 PULSE 83 TEMPERATURE 98.6 Height (Guyanese) 5' 1.5 Height (Metric) 156.2 cm Weight (Guyanese) 192 lbs Weight (Metric) 87.091 kg BODY MASS INDEX 35.69 kg/m2 Pulse Oximetry 95 General - Alert, co-operative, no apparent distress, oriented x 3. HEENT - PERRL, EOMI bilaterally, conjunctiva pink, no sclerae icterus or malar rash; oropharynx moist and non-erythematous. Neck - Supple, + marked decrease in range of motion of the neck on lateral rotation to the left and slight decrease in range of motion to the right; + posterior cervical spinal tenderness on palpation;+ bilateral paraspinal tenderness on palpation and range of motion; no JVD, carotid bruits, thyromega ly, or cervical lymphadenopathy. Heart - Regular rate and rhythm, normal S1 and S2; no murmurs, rubs, or gallops. Lungs - Symmetric, no respiratory distress, clear to auscultation bilaterally. Abdomen - Soft, non-tender, non-distended, bowel sound present, no hepatosplenomegaly. Back - Erect, FROM; + diffuse thoracic and lumbosacral spinal tenderness on palpation; no paraspinaltenderness at the SI joint areas on palpation. Extremities - Upper extremities: FROM of all joints; + hyperextensible bilateral elbows and 5th MCP joints; + bilateral shoulder tenderness at the acromioclavicular joint areas on palpation; + bilateral trigger point tenderness on palpation; + wrist joint discomfort on palpation; no signs of synovitis, soft tissue swelling, or joint effusion; no clubbing, cyanosis, or edema; proximal and distal strength, and handgrip = 5/5 bilaterally. Lower extremities: FROM of all joints; + low back and bilateral hip pain on range of motion of bothhips; + bilateral knee and ankle joint tenderness on palpation; + bilateral trigger point tendernesson palpation ( right worse than left); no signs of synovitis, soft tissue swelling, or joint effusion; no clubbing, cyanosis, or edema; 2+ peripheral pulses bilaterally. Skin - Smooth and intact, no rash, oral ulcers, bruises, telangiectasia on skin or at all nail margins, or sclerodactyly. Neuro - No sensory or motor function deficit, DTR = +3/4 bilaterally and throughout. Psych - Affect normal. IMPRESSION: 1) Hyperextensible joints, 2) neck pain, 3) low back pain, and 4) multiple joint pain in a 40-year-old female. 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 On the day of visit, her physical examination presented no stigmata of inflammatory arthritis. In the setting of neck pain, low back pain, and multiple joint pain, she will undergo laboratory studies to evaluate for seronegative spondyloarthropathy. She will also undergo radiographic studies of the spine to evaluate for structural defects such as scoliosis. She will be referred to the Genetics Clinic for further evaluation. 5) Diffuse myalgia. The pt's diffuse myalgia, particularly in the setting of bilateral trigger pointtenderness on palpation, is consistent with fibromyalgia. It is possible that her myalgia started asthe joint pain as noted above. She will undergo basic laboratory studies to rule out any inflammatory disease. She will also be referred to the Neurology Clinic for EMG studies in order to evaluate forperipheral neuropathy as a case of her diffuse myalgia. RECOMMENDATIONS: 1) Check labs today. 2) Get X-ray of the total spine today. 3) Refer to Genetics Clinic. 4) Refer to Neurology Clinic. 5) Return to follow up in 4-6 weeks. Jm Camargo MD, PhD documented in this encounter Plan of Treatment Scheduled Referrals Name Type Priority Associated Diagnoses Order S chedule Referral to Outpatient Referral Routine Arthralgia, Ordered: Genetics unspecified join t 09/13/2016 Hypermobile joints documented as of this encounter Procedures Procedure Name Priority Date/Time Associated Comments Diagnosis URINALYSIS WITH REFLEX Routine 09/13/2016 12:28 Neck kacey n Results for this CULTURE PM EST Chronic midline low procedur e are in back pain without the result s sciatica section. Diffuse pain Arthralgia, unspecified joint SCAN, PERIPHERAL BLOOD Routine 09/13/2016 11:35 R esults for this AM EST procedure are i n the results section. ANTI-CYCLIC Routine 09/13/2016 11:35 Neck pain Results for this CITRULLINATED PEPTIDE AM EST Chronic midline low procedure are in AB back pain without the result s sciatica section. Diffuse pain Arthralgia, unspecified joint HEMOGRAM Routine 09/13/2016 11:35 Neck pain Results for this AM EST Chronic midline low procedur e are in back pain without the result s sciatica section. Diffuse pain Arthralgia, unspecified joint DIFFERENTIAL, Routine 09/13/2016 11:35 Neck pain Results for this AUTOMATED AM EST Chronic midline low procedur e are in back pain without the result s sciatica section. Diffuse pain Arthralgia, unspecified joint HLA-B27 Routine 09/13/2016 11:35 Neck pain Results for this AM EST Chronic midline low procedur e are in back pain without the result s sciatica section. Diffuse pain Arthralgia, unspecified joint VITAMIN D, 25-HYDROXY Routine 09/13/2016 11:35 Neck pain Results for this AM EST Chronic midline low procedur e are in back pain without the result s sciatica section. Diffuse pain Arthralgia, unspecified joint SEDIMENTATION RATE Routine 09/13/2016 11:35 Neck pain Results for this AM EST Chronic midline low procedur e are in back pain without the result s sciatica section. Diffuse pain Arthralgia, unspecified joint CBC (WITH DIFF) Routine 09/13/2016 11:35 Neck pain AM EST Chronic midline low back pain without sciatica Diffuse pain Arthralgia, unspecified joint RHEUMATOID FACTOR, Routine 09/13/2016 11:35 Neck pain Results for this QUANT AM EST Chronic midline low procedur e are in back pain without the result s sciatica section. Diffuse pain Arthralgia, unspecified joint CRP, CARDIAC RISK (HS Routine 09/13/2016 11:35 Neck pain Results for this CRP) AM EST Chronic midline low procedur e are in back pain without the result s sciatica section. Diffuse pain Arthralgia, unspecified joint COMPREHENSIVE Routine 09/13/2016 11:35 Neck pain Results for this METABOLIC PANEL AM EST Chronic midline low proce dure are in (NON-FASTING) back pain without the resul ts sciatica section. Diffuse pain Arthralgia, unspecified joint documented in this encounter Results (ABNORMAL) Urinalysis with reflex Culture (09/13/2016 12:28 PM EST) [facility] Method Time Signature Glucose UA Negative Negative [facility] mg/dL [facility] Protein UA Negative Negative [facility] mg/dL [facility] Bilirubin UA Negative Negative [facility] mg/dL [facility] Comment: Clinical correlation required for positi ve Urine Bilirubin results as false positive may occur with some drugs and d rug related products. If a false positive is suspected a serum total bili rudd should be considered if clinically indicated. Urobilinogen UA Normal Normal mg/dL [facility] pH UA 5.0 5.0 - 8.0 [facility] Blood UA Negative Negative mg/dL [facility] Ketones UA 5 (A) Negative mg/dL [facility] Nitrite UA Negative Negative [facility] Leukocytes UA Negative Negative [facility] Appearance UA Clear Clear [facility] Spec [place] UA 1.026 1.002 - 1.030 [facility] Color UA Yellow Yellow [facility] RBC UA 3 0 - 4 /HPF [facility] WBC UA 1 0 - 5 /HPF [facility] Squam Epith UA 1 <=4 /HPF [facility] Culture Reflexed No [facility] Specimen (Source) Anatomical Collection Method Collection Time Re ceived Time Location / / Volume Laterality Urine specimen 09/13/2016 12:28 6 obtained by clean PM EST 12:[address] catch procedure (specimen) Resulting Agency Comment Spec In Lab Jm Camargo MD URINE ORDERABLES Performing Organization Address City/State/[place] [address] XR Cervical Thoracic & Lumbar Spine AP [...] arthropathy. Jm Camargo MD IMG DX ORDERABLES Scan, Peripheral Blood (09/13/2016 11:35 AM EST) [facility] [employer] Method Time Signature Plat Estimate Increased [facility] RBC Morphology Abnormal [facility] Microcytes 6-10 /HPF [facility] Hypochromia Slight [facility] Ovalocytes 1-5 /HPF [facility] Specimen Anatomical Collection Method Collection Time Receive d Time (Source) Location / / Volume Laterality Blood specimen 09/13/2016 11:35 6 (specimen) AM EST 11:39 AM EST Resulting Agency Comment Spec In Lab Jm Camargo MD HEMATOLOGY ORDERABLES Performing Organization Address City/State/ZIP Code Phon e Number [address] (ABNORMAL) Differential, Automated (09/13/2016 11:35 AM EST) [facility] [employer] Method Time Signature Neutrophils % 62.9 % [facility] Neutr Abs (ANC) 6.64 (H) 1.70 - [facility] 6.10 [facility] x10(3)/[facility] LABORATORY Lymphocytes % 20.8 % [facility] Lymphocytes Abs 2.2 0.9 - 3.2 [facility] x10(3)/[facility] LABORATORY Monocytes % 5.7 % [facility] Monocyte Abs 0.6 0.3 - 0.9 [facility] x10(3)/[facility] LABORATORY Eosinophils % 9.9 % [facility] Eosinophils Abs 1.0 (H) 0.0 - 0.4 [facility] x10(3)/[facility] LABORATORY Basophils % 0.5 % [facility] Basophils Abs 0.0 0.0 - 0.1 [facility] x10(3)/[facility] LABORATORY Immature Gran % 0.20 % [facility] Comment: Immature granulocytes(IG's)percentage an d absolute count will include metamyelocytes, myelocytes, and promyelo cytes. Blood smears from CBCs yielding IG's will be scanned manually for concor dance. If this scan disagrees with the automated IG or if promyelocytes are not ed, a manual differential will be performed. Gayle Gran Abs 0.02 0.00 - 0.04 x10(3)/[facility] MAR Y [facility] LABORATORY Specimen Anatomical Collection Method Collection Time Receive d Time (Source) Location / / Volume Laterality Blood specimen 09/13/2016 11:35 6 (specimen) AM EST 11:39 AM EST Resulting Agency Comment Spec In Lab Jm Camargo MD HEMATOLOGY ORDERABLES Performing Organization Address City/State/ZIP Code Phon e Number [place] [id number] (ABNORMAL) Hemogram (09/13/2016 11:35 AM EST) Analysis Performed At Patho logist Time Signature WBC 10.8 (H) 4.0 - 9.5 [facility] x10(3)/[facility] LABORATORY RBC 5.52 (H) 4.00 - [facility] 5.21 [facility] x10(6)/[facility]ORY Hemoglobin 11.2 (L) 11.7 - [facility] 15.5 gm/dL [facility] Hematocrit 38.8 35.7 - [facility] 45.8 % [facility] MCV 70.3 (L) 82.6 - [facility] 94.4 [facility] LABORATORY MCH 20.3 (L) 27.1 - [facility] 32.0 pg [facility] MCHC 28.9 (L) 31.7 - [facility] 35.0 gm/dL [facility] Platelets 409 (H) 145 - 357 [facility] x10(3)/[facility] LABORATORY RDWSD 48.3 (H) 37.0 - [facility] 46.0 [facility] LABORATORY RDWCV 20.0 (H) 11.5 - [facility] ЮЛИЯ 14.1 % [facility] MPV 9.5 7.6 - 12.9 [facility] LABORATORY nRBC % Auto 0.0 % [facility] nRBC Abs Auto 0.000 0.000 - [facility] ЮЛИЯ 0.000 [facility] x10(3)/[facility] LABORATORY Specimen Anatomical Collection Method Collection Time Receive d Time (Source) Location / / Volume Laterality Blood specimen 09/13/2016 11:35 6 (specimen) AM EST 11:39 AM EST Resulting Agency Comment Spec In Lab Jm Camargo MD HEMATOLOGY ORDERABLES Performing Organization Address City/State/ZIP Code Phon e Number [place] [phone] [facility] (ABNORMAL) HLA-B27 (09/13/2016 11:35 AM EST) Patholo gist Method Time Signature HLA-B27 Negative [facility] HLA-B27 HLA B27 antigen was not detected. [facility] Method: Flow Cytometry [facility] Reference: LABORATORY 1.Fermin WIN, Matteo POLK, Jessa Dixon, et al: Ankylosing spondylitis and HLA-27. Lancet 1973;1:904-907 2.Andre J, Ruba HILL: HLA-B27 typing by use of flow cytofluorometry. Clin Chem 1987;33:8840-2697 WBC 10.8 (H) 4.0 - 9.5 [facility] x10(3)/[facility] LABORATORY Specimen Anatomical Collection Method Collection Time Receive d Time (Source) Location / / Volume Laterality Blood specimen 09/13/2016 11:35 6 (specimen) AM EST 11:39 AM EST Resulting Agency Comment Spec In Lab Jm Camargo MD IMMUNOLOGY ORDERABLES Performing Organization Address City/[facility]/[place] [address] Cyclic Citrullinated Peptide (09/13/2016 11:35 AM EST) P athologist Signature Anti-Cyc Cit <8.0 <=17.0 [facility] Peptide unit/mL [facility] Specimen Anatomical Collection Method Collection Time Receive d Time (Source) Location / / Volume Laterality Blood specimen 09/13/2016 11:35 6 (specimen) AM EST 11:39 AM EST Resulting Agency Comment Spec In Lab Jm Camargo MD CHEMISTRY ORDERABLES Performing Organization Address City/[facility]/[place] [address] High Sensitivity CRP (09/13/2016 11:35 AM EST) athologist Signature CRP High Sens 7.9 mg/L [facility] Comment: Interpretations: 1) For accurate cardiac risk assessment, the average of 2 values >2 weeks apart should be obtained (ref 1&2). A value >1 0 mg/L indicates an inflammatory condition, concentrations >10 mg/L shoul d not be used for cardiac risk assessment. ?<1.0 mg/L: low risk ?1.0 - 3.0 mg/L: moderate risk ?>3.0 mg/L: high risk groups for fu ture cardiovascular events 2) The general reference range of appare ntly healthy individuals using this test is <5.0 mg/L (derived from the test package insert) References: 1. Karel CONCEPCION et. al. ??AHA/CDC Scientif ic Statement: Markers of Inflammation and Cardiovascular Disease. ??Circulatio n 2003; 107:499-511 ?2.Ridker PM. ??Clinical applicatio ns of C-reactive protein for cardiovascular disease detection and pre vention. ??Circulation ?2002; 107:363-369 Specimen Anatomical Collection Method Collection Time Receive d Time (Source) Location / / Volume Laterality Blood specimen 09/13/2016 11:35 6 (specimen) AM EST 11:39 AM EST Resulting Agency Comment Spec In Lab Jm Camargo MD CHEMISTRY ORDERABLES Performing Organization Address City/State/[place] [address] Rheumatoid factor, quant (09/13/2016 11:35 AM EST) athologist Signature RF <10 <=14 IU/mL [facility] Specimen Anatomical Collection Method Collection Time Receive d Time (Source) Location / / Volume Laterality Blood specimen 09/13/2016 11:35 6 (specimen) AM EST 11:39 AM EST Resulting Agency Comment Spec In Lab Jm Camargo MD IMMUNOLOGY ORDERABLES Performing Organization Address City/State/[place] [address] (ABNORMAL) Vitamin D, 25-Hydroxy (09/13/2016 11:35 AM EST) P athologist Signature 25-OH Vit D 14 (L) 30 - 100 [facility] Total ng/mL [facility] Comment: Deficient <10 ng/mL Insufficient 10 to 29 ng/mL Sufficient 30 to 100 ng/mL Potential Intoxication >100 ng/mL According to the [place] National Osteoporosi s Foundation, Vitamin D concentrations >30 ng/mL are sufficient to protect bone health. ??The National Kidney Foundation has similarly stated that pat ients with Vitamin D concentrations <30ng/mL should be considered to be insu fficient or deficient. http://MiserWare/DHMCnatlkidneyfoundat ion http://MiserWare/DHMCVitD The [employer] Vitamin D Immunoassay detec ts both 25-OH Vitamin D2 and 25-OH Vitamin D3, but only a total Vitamin D c oncentration is reported. Specimen Anatomical Collection Method Collection Time Receive d Time (Source) Location / / Volume Laterality Blood specimen 09/13/2016 11:35 6 (specimen) AM EST 11:39 AM EST Resulting Agency Comment Spec In Lab Jm Camargo MD CHEMISTRY ORDERABLES Performing Organization Address City/State/[place] [address] Sedimentation rate (09/13/2016 11:35 AM EST) P athologist Signature Sed Rate 12 0 - 20 [facility] mm/hr [facility] Specimen Anatomical Collection Method Collection Time Receive d Time (Source) Location / / Volume Laterality Blood specimen 09/13/2016 11:35 6 (specimen) AM EST 11:39 AM EST Resulting Agency Comment Spec In Lab Jm Camargo MD HEMATOLOGY ORDERABLES Performing Organization Address City/State/[place] [address] Comprehensive metabolic panel (non-fasting) (09/13/2016 11:35 AM EST) athologist Signature Glucose Lvl 106 65 - 199 [facility] mg/dL [facility] Comment: Diabetes: >=200 mg/dL plus symp toms BUN 13 8 - 18 mg/dL [facility] Creatinine 0.81 0.70 - 1.20 mg/dL [facility] Comment: Please note that the pediatric reference intervals supplied above were not validated at [facility]. Results from pediatri c patients should be interpreted in conjunction to the patient's age, height and muscle mass. Sodium 140 135 - 145 mmol/L [facility] Potassium 4.1 3.5 - 5.0 mmol/L [facility] Comment: Please note: ??Patients with WBC >100,00 0 may have falsely elevated Potassium levels. ??For accurate Potassium quantif ication in these patients send serum separator tube (gold top) for subsequent determinations. ??Contact the Clinical Chemistry Laboratory if there are any qu estions. Chloride 104 98 - 107 mmol/L [facility] CO2 23 22 - 31 mmol/L [facility] Anion Gap 13 5 - 15 mmol/L [facility] Calcium 8.9 8.5 - 10.5 mg/dL [facility] Total Protein 7.3 6.1 - 8.0 gm/dL [facility] Albumin 4.5 3.2 - 5.2 gm/dL [facility] AST 13 0 - 30 unit/L [facility] ALT 8 0 - 30 unit/L [facility] Alk Phos 95 40 - 104 unit/L [facility] Total Bilirubin 0.2 0.2 - 1.3 mg/dL [facility] Bili, Direct <0.1 0.0 - 0.3 mg/dL [facility] Estimated GFR >60 >=60 [facility] Comment: This estimated GFR (eGFR) value was calc ulated using the MDRD equation which has been validated on patients between t he ages of 18 and 70. The MDRD should not be used to assess kidney function in patients < 18 years of age or in patients with extremes of body mass, or in patients with acute kidney failure. This value should be multiplied by 1.2 f or patients. For further information please copy and past e the following links into your internet browser. http://MiserWare/DHnkdep http://MiserWare/DHMCnkf Specimen Anatomical Collection Method Collection Time Receive d Time (Source) Location / / Volume Laterality Blood specimen 09/13/2016 11:35 6 (specimen) AM EST 11:39 AM EST Resulting Agency Comment Spec In Lab Jm Camargo MD CHEMISTRY ORDERABLES Performing Organization Address City/State/[facility] [place] [place] [address] documented in this encounter Visit Diagnoses Diagnosis Neck pain Cervicalgia Chronic midline low back pain without sc iatica Diffuse pain Generalized pain Arthralgia, unspecified joint Hypermobile joints Other joint derangement, not elsewhere c lassified, unspecified site Neck pain Cervicalgia Chronic midline low back pain without sc iatica documented in this encounter Care Teams Community Cultural Development Officer Relationship Specialty Start Date End Date Lawson Whitaker MD PCP - General General Internal Medicine 06/11/16 01/16/[address] [place] [id number] documented as of this encounter
--- OUTSIDE RECORDS SUMMARY | 2022-07-09 01:20 | XMS_ITS | Encounter Summary ---
:1975 Author Organization [facility] Address [address] [place] [address] Care Team Providers Name Role Phone Unavailable Primary Care Provider Unavailable Encounter Details Date Type Department Care Team Description 06/03/2004 Results Only [facility] - Florentino Swanson MD conversion [address] [place] [address] Social History Tobacco Use Types Packs/Day Years Used Date Never Assessed Sex Assigned at Date Recorded Not on file documented as of this encounter Plan of Treatment Not on filedocumented as of this encounter Procedures Procedure Name Priority Date/Time Associated Diagnosis Comme nts SURGICAL PATHOLOGY Routine 06/03/2004 0:00 EDT Re sults for this procedure are i n the results section. documented in this encounter Results SURGICAL PATHOLOGY (06/03/2004 0:00 EDT) Pathology Report: SURGICAL PATHOLOGY REPORT [facility] Reports generated via electronic interface contain jordan ginal data; LAB however they are lacking the format of the original re port. Caution should be taken when reading/interpreting unfo rmatted reports. Name: ? MALU DE ? Accession #: ? [id number] ? : ? 1975 (Age: 28) ??F ? Collect Date: ? 06/03/2004 ? Location: ? [facility] ? Receive Date: ? 004 ? Provider: FLORENTINO WHITFIELD MD Copy to: ZELALEM RIVERA MD ? Final Pathologic Diagnosis: ? Ovary, right, right oophorectomy: - Mature cystic teratoma (dermoid cyst). ??See comment . Comment: ? The dermoid cyst is composed of mature elements with no features of malignancy or immature elements noted. ??(Dr. Lemos)/maryann Document reviewed and electronically signed by: MONA LEMOS MD Report ??Date: 06/05/2004 14:06 By the signature above, the attending physician certif ies that he/she has personally conducted a gross and/or microscopic examin ation of the described specimens and rendered or confirmed the above diagnosi s. Specimen(s) Received: ? Right ovary (portion) Clinical History: ? R ovarian mass (dermoid) Gross Description: ? Received in formalin labelled Shelly marin ovary is a 67 gram, disrupted, 9.2 x 6.3 x 3.2 c m, attenuated, dilated, cystic ovary. ??The serosa is pink-purple to white with patchy areas of hemorr hagic foci. ??The specimen is bisected to reveal copious a adam of brown hair and 4.0 x 3.0 cm focus of hair growing from the stromal surface. ??The cyst lining is white-pink to meadows and focally hemorrhagic. ??Sectioning within this region r eveals yellow adipose tissue within which is a 1.7 x 0.5 x 0.3 cm focus of firm, white bone. ??Adjacent to this site is a 2.0 x 1.1 x 0.4 cm, disrupted cystic structure which also contains hair and meadows-white, pasty contents. ??Electric Appliance Installer sections to include ovarian lining, site of hair follicles, and disrupted cystic structure are submitted as (A1) to (A4). ??(Ewelina Rogers)/katina End of Report Specimen Performing Organization Address City/State/ZIP Code Phon e Number [facility] [address] [phone] SERVICES [facility] [address] [place] [address] documented in this encounter Visit Diagnoses Not on filedocumented in this encounter
--- OUTSIDE RECORDS SUMMARY | 2022-07-09 01:20 | XMS_ITS | Encounter Summary ---
:1975 Author Organization [facility] Address [address] [place] [address] Care Team Providers Name Role Phone Lawson Whitaker MD Primary Care Provider Encounter Details Date Type Department Care Team Description 03/17/2018 Hospital Encounter [facility]- Tisha Unknown, Provider, Juan Manuel Khan MD [address] [facility] [phone] [place] [address] (Work) [phone] Social History Tobacco Use Types Packs/Day Years Used Date Never Assessed Sex Assigned at Date Recorded Not on file documented as of this encounter Discharge Disposition Disposition Code Departure Means Destination Home or Self Residential documented in this encounter Plan of Treatment Not on filedocumented as of this encounter Visit Diagnoses Not on filedocumented in this encounter Care Teams Motor Bike Mechanic Relationship Specialty Start Date End Date Lawson Whitaker MD PCP - General 03/26/15 [address] [place] [address] documented as of this encounter
--- OUTSIDE RECORDS SUMMARY | 2022-07-09 01:20 | XMS_ITS | Encounter Summary ---
:1975 Author Organization [facility] Address [address] [place] [address] Care Team Providers Name Role Phone Lawson Whitaker MD Primary Care Provider Encounter Details Date Type Department Care Team Description 06/08/2016 Results Only [facility]- Unknown, CHICO Nicole MD [phone] Social History Tobacco Use Types Packs/Day Years Used Date Never Assessed Sex Assigned at Date Recorded Not on file documented as of this encounter Plan of Treatment Pending Results Name Type Priority Associated Diagnoses Date/Ti me OUTSIDE IMAGES - OTHER Imaging 06/08 7:38 EDT CHEST OUTSIDE IMAGES - OTHER Imaging 06/08 7:38 EDT CHEST OUTSIDE IMAGES - CT NEURO Imaging 7:38 EDT OUTSIDE IMAGES - OTHER Imaging 06/08 7:38 EDT CHEST OUTSIDE IMAGES - OTHER Imaging 06/08 7:38 EDT CHEST OUTSIDE IMAGES - OTHER Imaging 06/08 7:38 EDT CHEST documented as of this encounter Visit Diagnoses Not on filedocumented in this encounter Care Teams Anodize Machine Operator Relationship Specialty Start Date End Date Lawson Whitaker MD PCP - General 03/26/15 [address] [place] [address] documented as of this encounter
--- OUTSIDE RECORDS SUMMARY | 2022-07-09 01:20 | XMS_ITS | Encounter Summary ---
:1975 Author Organization [facility] Address [address] [place] [address] Care Team Providers Name Role Phone Lawson Whitaker MD Primary Care Provider Encounter Details Date Type Department Care Team Description 03/26/2015 Phlebotomy Only [facility] - Hand Mica Plate Layer, [facility] Outpatient [address] [place], [place] [address] Social History Tobacco Use Types Packs/Day Years Used Date Never Assessed Sex Assigned at Date Recorded Not on file documented as of this encounter Plan of Treatment Not on filedocumented as of this encounter Visit Diagnoses Not on filedocumented in this encounter Care Teams Window Installer Relationship Specialty Start Date End Date Lawson Whitaker MD PCP - General 03/26/[address] [place], [place] [address] documented as of this encounter
--- OUTSIDE RECORDS SUMMARY | 2022-07-09 01:20 | XMS_ITS | Encounter Summary ---
:1975 Author Organization [facility] Address [address] [place] [address] Care Team Providers Name Role Phone Unavailable Primary Care Provider Unavailable Encounter Details Date Type Department Care Team Description 04/17/2004 Results Only [facility] - Florentino Swanson MD conversion [address] [place] [address] Social History Tobacco Use Types Packs/Day Years Used Date Never Assessed Sex Assigned at Date Recorded Not on file documented as of this encounter Plan of Treatment Not on filedocumented as of this encounter Procedures Procedure Name Priority Date/Time Associated Diagnosis Comme nts CYTOPATHOLOGY Routine 04/17/2004 0:00 EDT Results for this procedure are i n the results section . documented in this encounter Results CYTOPATHOLOGY (04/17/2004 0:00 EDT) Pathology Report: CYTOPATHOLOGY REPORT [facility] Reports generated via electronic interface contain jordan ginal data; however they are lacking the format of the original re port. Caution should be taken when reading/interpreting unfo rmatted reports. Name: ? MALU DE ? Accession #: ? [id number] : ? 1975 (Age: 28) ??F ?Collect Date: ? 06/2004 Location: ? [facility] ? Receive Date : ? 04/20/2004 Provider: ?FLORENTINO WHITFIELD MD Copy to: ? Specimen/Source: ?ThinPrep Pap Test, Cervix/ Endocervix Last Menstrual Period: ? 05/01/03 Menstrual/ Status: ? Post Previous Gynecologic Pathology: ? LSIL: Can't R/o HSIL 07/12 ? SPECIMEN ADEQUACY ? Satisfactory for Evaluation - transformation zone component present GENERAL CATEGORIZATION ? Negative for Intraepithelial Lesion or Malignan cy ? Document reviewed and electronically signed by: ? JORDAN Sellers(ASCP) ? Report Date: ??04/24/2004 09:24 End of Report Specimen Performing Organization Address City/State/ZIP Code Phon e Number [facility] [address] [place] [address] SERVICES [facility] [address] [place] [address] documented in this encounter Visit Diagnoses Not on filedocumented in this encounter
--- OUTSIDE RECORDS SUMMARY | 2022-07-09 01:20 | XMS_ITS | Encounter Summary ---
:1975 Author Organization [facility] Address [address] [place] [address] Care Team Providers Name Role Phone Lawson Whitaker MD Primary Care Provider Encounter Details Date Type Department Care Team Description 03/26/2020 Lab Requisition [facility] Outr Resulting Lab, Pathology & Laboratory Provider [facility] [address] [place], [place] [address] Social History Tobacco Use Types Packs/Day Years Used Date Never Assessed Sex Assigned at Date Recorded Not on file documented as of this encounter Plan of Treatment Not on filedocumented as of this encounter Procedures Procedure Name Priority Date/Time Associated Diagnosis Comme nts TRANSFERRIN Routine 03/25/2020 16:00 EDT Results for this procedure are i n the results section . documented in this encounter Results TRANSFERRIN (03/25/2020 16:00 EDT) Pathologist Sig nature Transferrin 256 201 - 352 mg/dL [facility] SERVICES Specimen Blood - Venous blood (substance) Performing Organization Address City/State/ZIP Code Phon e Number [facility] [address] [place] [address] SERVICES documented in this encounter Visit Diagnoses Not on filedocumented in this encounter Care Teams Hospital Monitor Relationship Specialty Start Date End Date Lawson Whitaker MD PCP - General 03/26/15 [address] [place] [address] documented as of this encounter
--- OUTSIDE RECORDS SUMMARY | 2022-07-09 01:20 | XMS_ITS | Encounter Summary ---
:1975 Author Organization [facility] Address [address] [place] [address] Care Team Providers Name Role Phone Lawson Whitaker MD Primary Care Provider Encounter Details Date Type Department Care Team Description 12/14/[address] [facility] Unknown, Provider, Pathology & Laboratory [facility] [address] [facility] [place], [place] [address] Social History Tobacco Use Types Packs/Day Years Used Date Never Assessed Sex Assigned at Date Recorded Not on file documented as of this encounter Plan of Treatment Not on filedocumented as of this encounter Procedures Procedure Name Priority Date/Time Associated Diagnosis Comme nts TRANSFERRIN Routine 12/13/2019 10:55 EST Results for this procedure are i n the results section . documented in this encounter Results TRANSFERRIN (12/13/2019 10:55 EST) Pathologist Sig nature Transferrin 313 201 - 352 mg/dL [facility] Specimen Blood - Venous blood (substance) Performing Organization Address City/State/ZIP Code Phon e Number [facility] [address] [place] [address] SERVICES documented in this encounter Visit Diagnoses Not on filedocumented in this encounter Care Teams Baggage Screener Relationship Specialty Start Date End Date Lawson Whitaker MD PCP - General 03/26/15 [address] [place], [place] [address] documented as of this encounter
--- OUTSIDE RECORDS SUMMARY | 2022-07-09 01:20 | XMS_ITS | Encounter Summary ---
:1975 Author Organization [facility] Address [address] [place] [address] Care Team Providers Name Role Phone Lawson Whitaker MD Primary Care Provider Encounter Details Date Type Department Care Team Description 03/17/2018 Results Only [facility]- Kelly Call DO [phone] [facility] [place] [address] (Wo rk) Social History Tobacco Use Types Packs/Day Years Used Date Never Assessed Sex Assigned at Date Recorded Not on file documented as of this encounter Plan of Treatment Not on filedocumented as of this encounter Procedures Procedure Name Priority Date/Time Associated Diagnosis Comme [facility] SURGICAL PATHOLOGY Routine 03/17/2018 9:01 EDT Re sults for this procedure are i n the results section. documented in this encounter Results SURGICAL PATHOLOGY (03/17/2018 9:01 EDT) Pathology Report: SURGICAL PATHOLOGY REPORT [facility] Reports generated via electronic interface contain jordan ginal data; LABORATORY however they are lacking the format of the original re port. SERVICES Caution should be taken when reading/interpreting unfo rmatted reports. Name: ? MALU DE ? Accession #: ? [id number] ? : ? 1975 (Age: 42 ) ??F ? Collect Date: ? 03/17/2018 ? Location: ? [facility] ? Receive Date: ? 8 ? Provider: KELLY PENA DO Copy to: KWAME BECKETT PROJECT MANAGER SENIOR ? Final Pathologic Diagnosis: A. ??DUODENUM, BIOPSY: - Unremarkable duodenal mucosa. - Negative for gluten-sensitive enteropathy. ?? B. ??STOMACH ANTRUM, BIOPSY: - Mild reactive gastropathy. - Negative for Helicobacter pylori organisms. ?? C. ??ESOPHAGUS, MIDDLE THIRD, BIOPSY: ? - Unremarkable squamous mucosa. - Negative for Rangel's specialized-columnar epitheli um. - Negative for eosinophilic esophagitis. ?? Document reviewed and electronically signed by: NACHO KAUR MD Report ??Date: 03/21/2018 13:30 By the signature above, the attending physician certif ies that he/she has personally conducted a gross and/or microscopic examin ation of the described specimens and rendered or confirmed the above diagnosi s. Specimen(s) Received: A. ??Duodenal bxs B. ??Gastric antrum bxs C. ??Mid-esophagus bxs Clinical History: Dysphagia, R13.14 Gross Description: A. ?Received in formalin labelled with proper p atient identification (initials N, M) and duodenal biopsies are two pink-meadows tissues (0.3 x 0.2 x 0.2 cm and 0.4 x 0.3 x 0.2 cm). Entirely submitted in block A1. B. ?Received in formalin labelled with proper p atient identification (initials N, M) and gastric antrum biop sies are five pink-meadows tissues (0.3 x 0.2 x 0.1 cm to 0.5 x 0.3 x 0.1 cm). Entirely submitte d in blocks B1 and B2. C. ?Received in formalin labelled with proper p atient identification (initials N, M) and mid eso phagus biopsies are five white tissues (0.2 x 0.2 x 0.1 cm to 0.5 x 0.3 x 0.1 cm). Entirely submitted in b locks C1 and C2. MARIAN Zapata (ASCP) 03/20/2018 8:16 AM End of Report Specimen Performing Organization Address City/State/ZIP Code Phon e Number [facility] [address] [place] [address] SERVICES documented in this encounter Visit Diagnoses Not on filedocumented in this encounter Care Teams Stove Cleaner Relationship Specialty Start Date End Date Lawson Whitaker MD PCP - General 03/26/15 [address] [place] [address] documented as of this encounter
--- OUTSIDE RECORDS SUMMARY | 2022-07-09 01:20 | XMS_ITS | Encounter Summary ---
:1975 Author Organization [facility] Address [address] [place] [address] Care Team Providers Name Role Phone Unavailable Primary Care Provider Unavailable Encounter Details Date Type Department Care Team Description 07/18/2003 Results Only [facility] - Jose Otero MD [address] [place] [phone] (Wo rk) Social History Tobacco Use Types Packs/Day Years Used Date Never Assessed Sex Assigned at Date Recorded Not on file documented as of this encounter Plan of Treatment Not on filedocumented as of this encounter Procedures Procedure Name Priority Date/Time Associated Diagnosis Comme nts CYTOPATHOLOGY Routine 07/18/2003 0:00 EDT Results for this procedure are i n the results section . documented in this encounter Results CYTOPATHOLOGY (07/18/2003 0:00 EDT) Pathology Report: CYTOPATHOLOGY REPORT [facility] Reports generated via electronic interface contain jordan ginal data; however they are lacking the format of the original re port. Caution should be taken when reading/interpreting unfo rmatted reports. Name: ? MALU DE ? Accession #: ? [id number] : ? 1975 (Age: 27) ??F ?Collect Date: ? 10/0 06/2003 Location: ? [facility] ? Receive Date : ? 07/22/2003 Provider: ?JOSE WALKER MD Copy to: ? Specimen/Source: ?ThinPrep Pap Test, Cervix/ Endocervix Last Menstrual Period: ? 05/01/03 Menstrual/ Status: ? Hormonal/Contraceptive Status: ? Depo-Provera Other: ? HPVA - HPV testing requested if ASC-US on the current ThinPrep Pap test. ? SPECIMEN ADEQUACY ? Satisfactory for Evaluation - transformation zone component present GENERAL CATEGORIZATION ? Epithelial Cell Abnormality INTERPRETATION ? Squamous Cell Abnormality - Low grade squamous intraepithelial lesion (LSIL), cannot exclude ? high grade squamous intraepithelial lesion (HSIL). EDUCATIONAL NOTES/RECOMMENDATIONS ? [facility] recommends onio wing the 2001 Consensus Guidelines for the Management of Women with Cervical Cytological Abnormalities (TERESA Dixon,2002;287:2120-9). Management algorithms have b een distributed by [facility] and are available online at www.ASCCP.org. ? Document reviewed and electronically signed by: ? Monik Flores MD ? Report Date: ??07/29/2003 15:35 End of Report Specimen Performing Organization Address City/State/ZIP Code Phon e Number [facility] [address] [place] [address] SERVICES [facility] [address] [place] [address] documented in this encounter Visit Diagnoses Not on filedocumented in this encounter
--- OUTSIDE RECORDS SUMMARY | 2022-07-09 01:20 | XMS_ITS | Encounter Summary ---
:1975 Author Organization [facility] Address [address] [place] [address] Care Team Providers Name Role Phone Unavailable Primary Care Provider Unavailable Encounter Details Date Type Department Care Team Description 12/15/2004 Results Only [facility] - Florentino Swanson MD conversion [address] [place] [phone] Social History Tobacco Use Types Packs/Day Years Used Date Never Assessed Sex Assigned at Date Recorded Not on file documented as of this encounter Plan of Treatment Not on filedocumented as of this encounter Procedures Procedure Name Priority Date/Time Associated Diagnosis Comme [facility] CYTOPATHOLOGY Routine 12/15/2004 0:00 EST Results for this procedure are i n the results section . documented in this encounter Results CYTOPATHOLOGY (12/15/2004 0:00 EST) Pathology Report: CYTOPATHOLOGY REPORT [facility] Reports generated via electronic interface contain jordan ginal data; however they are lacking the format of the original re port. Caution should be taken when reading/interpreting unfo rmatted reports. Name: ? MALU DE ? Accession #: ? [id number] : ? 1975 (Age: 29) ??F ?Collect Date: ? 05/2005 Location: ? [facility] ? Receive Date : ? 12/17/2004 Provider: ?FLORENTINO WHITFIELD MD Copy to: ? Specimen/Source: ?ThinPrep Pap Test, Cervix/ Endocervix Last Menstrual Period: ? 11/19/04 Hormonal/Contraceptive Status: ? Tubal ligation Previous Gynecologic Pathology: ? LSIL: 07/12 cannot R/O HSIL Other: ? Additional clinical information: 04/12 pap WNL ? SPECIMEN ADEQUACY ? Satisfactory for Evaluation - transformation zone component present GENERAL CATEGORIZATION ? Negative for Intraepithelial Lesion or Malignan cy INTERPRETATION ? Shift in timothy present suggestive of bacterial vaginosis. ? Document reviewed and electronically signed by: ? Ca Eaton, SCT(ASCP) ? Report Date: ??12/21/2004 12:05 End of Report Specimen Performing Organization Address City/State/ZIP Code Phon e Number [facility] [address] [phone] SERVICES [facility] [address] [place] [address] documented in this encounter Visit Diagnoses Not on filedocumented in this encounter
--- OUTSIDE RECORDS SUMMARY | 2022-07-09 01:20 | XMS_ITS | Encounter Summary ---
:1975 Author Organization [facility] Address [address] [place] [address] Care Team Providers Name Role Phone Lawson Whitaker MD Primary Care Provider Encounter Details Date Type Department Care Team Description 03/26/2015 Hospital Encounter [facility], [facility] MD [address] [facility] [address] [place] [address] [place] [id number] (Wo rk) Social History Tobacco Use Types Packs/Day Years Used Date Never Assessed Sex Assigned at Date Recorded Not on file documented as of this encounter Discharge Disposition Disposition Code Departure Means Destination Home or Self [facility] documented in this encounter Plan of Treatment Not on filedocumented as of this encounter Procedures Procedure Name Priority Date/Time Associated Comments Diagnosis IGA Routine 03/26/2015 13:20 Results for this EDT procedure are i n the results section. ANCA, IFA Routine 03/26/2015 13:20 Results for this EDT procedure are i n the results section. SED RATE Routine 03/26/2015 13:20 Results for this EDT procedure are i n the results section. COMPLETE BLOOD COUNT Routine 03/26/2015 13:20 Res ults for this AND DIFFERENTIAL EDT procedure a re in the results section. C REACTIVE PROTEIN Routine 03/26/2015 13:20 Resul ts for this EDT procedure are i n the results section. ANTI NUCLEAR AB (YURI), Routine 03/26/2015 13:20 R esults for this IFA EDT procedure are i n the results section. IGE Routine 03/26/2015 13:20 Results for this EDT procedure are i n the results section. IGM Routine 03/26/2015 13:20 Results for this EDT procedure are i n the results section. IGG Routine 03/26/2015 13:20 Results for this EDT procedure are i n the results section. COMPREHENSIVE Routine 03/26/2015 13:20 Results fo r this METABOLIC PANEL (CMP) EDT proced ure are in the results section. documented in this encounter Results SED. RATE:WESTERGREN (03/26/2015 13:20 EDT) Pathologist Sig nature Sed. Rate Westergren 16 0 - 20 mm/hr [facility] Specimen Blood Performing Organization Address City/State/ZIP Code Phon e Number [facility] [address] [place] [address] SERVICES IGM (03/26/2015 13:20 EDT) Pathologist Sig nature IgM 246 46 - 304 mg/dl [facility] ORY SERVICES Specimen Blood Performing Organization Address City/[facility]/[place]IP [facility] [facility] [address] [place] [phone] SERVICES IGG (03/26/2015 13:20 EDT) Pathologist Sig nature IgG 818 751 - 1,560 mg/dl [facility] SERVICES Specimen Blood Performing Organization Address City/[facility]/ZIP Code Phon e Number [facility] [address] [place] [address] SERVICES IGE (03/26/2015 13:20 EDT) Pathologist Sig nature IgE 123 <158 IU/ml [facility]ORATOR Y SERVICES Specimen Blood Performing Organization Address City/[facility]/ZIP Code Phon e Number [facility] [address] [place] [address] SERVICES IGA (03/26/2015 13:20 EDT) Pathologist Sig nature IgA 251 82 - 453 mg/dl [facility] ORY SERVICES Specimen Blood Performing Organization Address City/[facility]/ZIP Code Phon e Number [facility] [address] [place] [address] SERVICES (ABNORMAL) C-REACTIVE PROTEIN (03/26/2015 13:20 EDT) Pathologist Sig nature C-Reactive Protein 1.3 (H) <1.0 mg/dl [facility] Specimen Blood Performing Organization Address City/[facility]/ZIP Code Phon e Number [facility] [address] [place] [address] SERVICES (ABNORMAL) COMPREHENSIVE METABOLIC PANEL (CMP) (03/26/2015 13:20 EDT) Pathologist Sig nature Potassium 4.5 3.5 - 5.0 mEq/L [facility] Sodium 139 136 - 145 mEq/L [facility] Chloride 101 96 - 110 mEq/L [facility] CO2 27 24 - 32 mEq/L [facility] Total Alkaline 65 38 - 126 U/L [facility] Phosphatase LABORATORY SERVICES Bilirubin, Total 0.6 <1.4 mg/dl [facility] AST 21 15 - 46 U/L [facility] ALT 31 <53 U/L [facility] Albumin 4.2 3.4 - 4.9 g/dl [facility] Total Protein 7.0 6.5 - 8.3 g/dl [facility] Creatinine 0.76 0.52 - 1.04 [facility] mg/dl LABORATORY SERVICES GFR, Calculated >60 >60 [facility] ml/min/1.73m2 LABORATORY SERVICES BUN 9 (L) 10 - 26 mg/dl [facility] Calcium 9.9 8.5 - 10.5 [facility] mg/dl LABORATORY SERVICES Calculated Calcium 10.1 8.5 - 10.5 [facility] mg/dl LABORATORY SERVICES Glucose, Serum 77 70 - 100 mg/dl [facility] Fasting? Unknown [facility] Specimen Blood Performing Organization Address City/State/ZIP Code Phon e Number [facility] [address] [place] [address] SERVICES (ABNORMAL) HEMAGRAM AND DIFFERENTIAL (03/26/2015 13:20 EDT) Pathologist Sig nature WBC 13.82 (H) 4.0 - 12.4 K/cmm [facility] RBC 5.54 (H) 3.86 - 5.04 [facility] M/cmm LABORATORY SERVICES Hemoglobin 13.2 11.6 - 15.2 [facility] gm/dl LABORATORY SERVICES HCT 42.0 34.9 - 44.4 % [facility] MCV 76 (L) 81 - 98 fl [facility] MCH 23.9 (L) 26.7 - 33.3 pg [facility] Hypochromia 1+ [facility] MCHC 31.5 (L) 32.1 - 35.9 [facility] gm/dl LABORATORY SERVICES RDW-CV 19.7 (H) 11.7 - 14.6 % [facility] RDW-SD 51.6 (H) 37.6 - 50.3 fl [facility] Anisocytosis 2+ [facility] PLT 487 (H) 141 - 320 [facility] MPV 7.5 7.5 - 11.2 fl [facility] Neutrophils 63.6 45.5 - 79.7 % [facility] Lymphocytes 27.3 15.0 - 46.8 % [facility] Monocytes 5.2 1.8 - 12.0 % [facility] Eosinophils 3.7 0.6 - 6.9 % [facility] Basophils 0.2 0.2 - 1.4 % [facility] ABS Neutrophils 8.79 2.20 - 8.85 [facility] K/[facility] LABORATORY SERVICES ABS Lymphs 3.77 (H) 1.09 - 3.30 [facility] LABORATORY SERVICES ABS Monocytes 0.72 0.1 - 0.8 /[facility] LABORATORY SERVICES ABS Eosinophils 0.52 0.03 - 0.61 [facility] K/[facility] LABORATORY SERVICES ABS Basophils 0.03 0.01 - 0.11 [facility] K/[facility] LABORATORY SERVICES Type of Diff: Automated [facility] Specimen Blood Performing Organization Address City/State/ZIP Code Phon e Number [facility] [address] [place] [address] SERVICES ANCA (03/26/2015 13:20 EDT) Pathologist Sig nature ANCA <20 <20 dils [facility] Y SERVICES Specimen Blood Performing Organization Address City/[facility]/ZIP Code Phon e Number [facility] [address] [place] [address] SERVICES ANTI NUCLEAR ANTIBODY (03/26/2015 13:20 EDT) Pathologist Sig nature Anti Nuclear Ab <40 0 - 40 Dils [facility] SERVICES Specimen Blood Performing Organization Address City/State/ZIP Code Phon e Number [facility] [address] [place] [address] SERVICES documented in this encounter Visit Diagnoses Not on filedocumented in this encounter Care Teams Hardware Trainer Relationship Specialty Start Date End Date Lawson Whitaker MD PCP - General 03/26/15 [address] [place] [address] documented as of this encounter
--- NOTE | 2022-07-09 10:00 | HOLTER_ITS ---
APPROVED REPORT Conclusion This is a 48-hour Holter monitor ordered for palpitations Rhythm throughout was sinus with an average heart rate of 69. Minimum was 54, maximum 113 There were no supraventricular dysrhythmias A total of 14 isolated premature ventricular contractions were recorded There was no atrial fibrillation, no high-grade AV block, no pauses greater than 3 seconds No patient symptoms were reported
== END 2022-07-09 23:59 | disposition home or self-care (01) ==
LOC: RT 01:12
PROVIDERS: PCP Nurse Practitioner Family; Visit Provider Nurse Practitioner Family
DX: R00.2 Palpitations (principal); I49.3 Ventricular premature depolarization
CPT/HCPCS: 93227; 93225; 93226

== ENCOUNTER → 2022-08-02 02:05 | Outpatient (CLI) | payer MEDICARE, MEDICAID, SELFPAY ==
--- NOTE | 2022-08-02 10:30 | DI.RAD_ITS ---
Exam(s) XR LUMBAR SPINE COMPLETE EXAM: XR LUMBAR SPINE COMPLETE CLINICAL HISTORY: LUMBAR RADICULOPATHY, M54.16; LE RADICULAR PAIN, M54.10. TECHNIQUE: 2D digital imaging was performed. Five views. COMPARISON: No exams were available for comparison FINDINGS: BONES: No fracture or destructive lesion. Vertebral body heights are maintained. No facet hypertroph y identified. DISKS: Intervertebral disc spaces are maintained. Minimal endplate osteophytes at L2-3. ALIGNMENT: Lumbar spinal alignment is within normal limits. SOFT TISSUE: Normal. IMPRESSION: Mild degenerative disc changes L2-3. DATA REPOSITORY: RADIATION DOSE DELIVERED:
== END ==
PROVIDERS: PCP Nurse Practitioner Family; Visit Provider Family Medicine
DX: M54.16 Radiculopathy, lumbar region (principal)
CPT/HCPCS: 72110

== ENCOUNTER 2022-08-18 15:43 | Outpatient (REF) | payer MEDICARE, MEDICAID, SELFPAY ==
[2022-08-18 20:56] LABS: ALT 23 U/L (14-59); AST 16 U/L (15-37); HDL Cholesterol 50 mg/dL (40-60); LDL CHOLESTEROL 142 mg/dL (<100); TSH 3.72 uIU/mL (0.36-3.74)
[2022-08-18 21:20] LABS: Creatine Kinase 67 U/L (26-192); FREE T4 0.96 ng/dL (0.76-1.46)
[2022-08-18 21:53] LABS: Hemoglobin A1C 6.1 % (<5.7)
[2022-08-18 22:07] LABS: Vitamin D 25 Total 32.7 ng/mL (30-100)
== END 2022-08-18 15:44 | disposition home or self-care (01) ==
LOC: NCHCN 15:43
PROVIDERS: PCP Nurse Practitioner Family; Visit Provider Nurse Practitioner Family
DX: E78.5 Hyperlipidemia, unspecified (principal); E11.9 Type 2 diabetes mellitus without complications; R94.6 Abnormal results of thyroid function studies; R53.83 Other fatigue
CPT/HCPCS: 82306; 82550; 83721; 83036; 83718; 84439; 84443; 84450; 84460

== ENCOUNTER 2022-09-27 17:36 | Outpatient (REF) | payer MEDICARE, MEDICAID, SELFPAY ==
[2022-09-27 21:16] LABS: CREATININE 0.8 mg/dL (0.55-1.02); Estimated GFR 92.54 (mL/min/1.73m2)
[2022-09-30 10:57] LABS: COVID-19 RT-PCR UVMMC Result Positive (Negative)
== END 2022-09-27 17:37 | disposition home or self-care (01) ==
LOC: LBN 17:36
PROVIDERS: PCP Nurse Practitioner Family; Visit Provider Physician Assistant
DX: B34.9 Viral infection, unspecified (principal); Z20.822 Contact with and (suspected) exposure to COVID-19
CPT/HCPCS: U0003; 82565

== ENCOUNTER 2022-10-14 10:08 | Outpatient (REF) | payer MEDICARE, MEDICAID, SELFPAY ==
[2022-10-14 16:07] LABS: FREE T4 0.65 ng/dL (0.76-1.46); TSH 27.36 uIU/mL (0.36-3.74)
== END 2022-10-14 10:09 | disposition home or self-care (01) ==
LOC: NCHCN 10:08
PROVIDERS: PCP Nurse Practitioner Family; Visit Provider Nurse Practitioner Family
DX: U07.1 COVID-19 (principal); R94.6 Abnormal results of thyroid function studies; L65.9 Nonscarring hair loss, unspecified
CPT/HCPCS: 84439; 84443

== ENCOUNTER 2022-10-20 09:48 | Outpatient (CLI) | payer MEDICARE, MEDICAID, SELFPAY ==
--- NOTE | 2022-10-20 08:30 | DI.RAD_ITS ---
Exam(s) XR HIP PELVIS ADULT BL EXAM: XR HIP PELVIS ADULT BL CLINICAL HISTORY: bilateral hip pain. TECHNIQUE: 2D digital imaging was performed. Three views. COMPARISON: No exams were available for comparison FINDINGS: BONES: No acute fracture is present. No bony destructive lesion is seen. JOINTS: No dislocation present. Hip joint spaces are maintained. Minimal right acetabular spurring. SI joints and pubic symphysis unremarkable SOFT TISSUE: Normal. IMPRESSION: Unremarkable radiographs of bilat hips. DATA REPOSITORY: RADIATION DOSE DELIVERED:
== END 2022-10-20 09:49 | disposition home or self-care (01) ==
LOC: DIORS 09:48
PROVIDERS: PCP Nurse Practitioner Family; Referring Provider Nurse Practitioner Family; Visit Provider Student in an Organized Health Care Education/Training Program
DX: M76.31 Iliotibial band syndrome, right leg (principal); M76.32 Iliotibial band syndrome, left leg; M79.18 Myalgia, other site; M70.61 Trochanteric bursitis, right hip; M70.62 Trochanteric bursitis, left hip; M76.01 Gluteal tendinitis, right hip; M76.02 Gluteal tendinitis, left hip
CPT/HCPCS: 20610; 73521; 99204; J1030

== ENCOUNTER 2022-11-30 18:10 | Outpatient (REF) | payer MEDICARE, MEDICAID, SELFPAY ==
[2022-11-30 19:06] LABS: HCT 42.5 % (36.0-46.0); HGB 12.9 g/dL (11.2-15.7); MCH 25.9 pg (27.0-33.0); MCHC 30.4 % (32.0-36.0); MCV 85 fL (80-95); MPV 10.3 fL (8.0-11.0); Platelet Count 383 10^3/uL (130-400); RBC 4.99 10^6/uL (3.93-5.22); RDW 15.5 % (11.7-14.6); RDW-SD 47.9 fL; WBC 6.54 10^3/uL (4.4-10.8)
[2022-11-30 19:25] LABS: FREE T4 0.86 ng/dL (0.76-1.46); TSH 9.19 uIU/mL (0.36-3.74)
[2022-11-30 19:44] LABS: Iron 39 ug/dL (50-170)
[2022-11-30 19:58] LABS: Ferritin 7 ng/mL (8-252)
[2022-12-01 18:29] LABS: Thyroperoxidase Antibody >1300 U/mL (<=60)
[2022-12-01 18:31] LABS: Thyroglobulin Antibody >500 U/mL (<=60)
== END 2022-11-30 18:11 | disposition home or self-care (01) ==
LOC: NCHCN 18:10
PROVIDERS: Internal Medicine Endocrinology, Diabetes & Metabolism; PCP Nurse Practitioner Family; Visit Provider Family Medicine
DX: E03.9 Hypothyroidism, unspecified (principal); D50.8 Other iron deficiency anemias
CPT/HCPCS: 85027; 82728; 83540; 84439; 84443; 86376; 86800

== ENCOUNTER 2022-12-02 01:10 | Outpatient (CLI) | payer MEDICARE, MEDICAID, SELFPAY ==
--- NOTE | 2022-12-02 13:00 | DI.US_ITS ---
Exam(s) US THYROID EXAM: US THYROID CLINICAL HISTORY: NONTOXIC GOITER, E04.9. TECHNIQUE: Ultrasound thyroid performed using standard protocol. COMPARISON: No exams were available for comparison FINDINGS: ISTHMUS: 2.5 mm RIGHT LOBE: Size: 4.1 x 1.5 x 1.5 cm Echogenicity: Normal. Vascularity: Normal. Nodules: None. LEFT LOBE: Size: 1.9 x 0.6 x 0.8 cm Echogenicity: Normal. Vascularity: Normal. Nodules: None. OTHER FINDINGS: None. IMPRESSION: 1. No thyroid nodules. 2. Small left lobe of the thyroid gland relative to the right. DATA REPOSITORY:
== END 2022-12-02 01:30 ==
LOC: DI 01:10
PROVIDERS: PCP Nurse Practitioner Family; Visit Provider Internal Medicine Endocrinology, Diabetes & Metabolism
DX: E04.8 Other specified nontoxic goiter (principal); E07.89 Other specified disorders of thyroid
CPT/HCPCS: 76536

== ENCOUNTER → 2023-01-18 09:30 | Outpatient (BNVA) | payer MEDICARE, MEDICAID, SELFPAY | PROVIDERS: PCP Nurse Practitioner Family; Referring Provider Nurse Practitioner Family; Visit Provider Student in an Organized Health Care Education/Training Program | DX: M70.61 Trochanteric bursitis, right hip (principal); M70.62 Trochanteric bursitis, left hip; M22.2X1 Patellofemoral disorders, right knee; M22.2X2 Patellofemoral disorders, left knee | CPT/HCPCS: 99212; 99213 ==

== ENCOUNTER 2023-01-24 01:52 | Outpatient (CLI) | payer MEDICARE, MEDICAID, SELFPAY ==
[2023-01-24 12:25] LABS: FREE T4 1.15 ng/dL (0.76-1.46); TSH 3.89 uIU/mL (0.36-3.74)
== END 2023-01-24 01:53 | disposition home or self-care (01) ==
PROVIDERS: PCP Nurse Practitioner Family; Visit Provider Internal Medicine Endocrinology, Diabetes & Metabolism
DX: E03.9 Hypothyroidism, unspecified (principal)
CPT/HCPCS: 36415; 84439; 84443

== ENCOUNTER 2023-03-08 08:38 | Outpatient (CLI) | payer MEDICARE, MEDICAID, SELFPAY ==
--- NOTE | 2023-03-08 08:15 | DI.RAD_ITS ---
Exam(s) XR KNEE LT 3V AP,LAT,AMY EXAM: XR KNEE LT 3V AP,LAT,AMY CLINICAL HISTORY: knee pain. TECHNIQUE: 2D digital imaging was performed. COMPARISON: No exams were available for comparison FINDINGS: 3 views No evidence of fracture or joint effusion. Bone density normal. No osseous lesions. No degenerativ e changes. No narrowing. No osteophytes. IMPRESSION: No significant osseous findings in the knee. Also no joint effusion DATA REPOSITORY: RADIATION DOSE DELIVERED:
--- NOTE | 2023-03-08 08:15 | DI.RAD_ITS ---
Exam(s) XR KNEE RT 3V AP,LAT,AMY EXAM: XR KNEE RT 3V AP,LAT,AMY CLINICAL HISTORY: knee pain. TECHNIQUE: 2D digital imaging was performed. COMPARISON: CR XR KNEE LT 3V AP,LAT,AMY from 03/08/2023 FINDINGS: 3 views No evidence of fracture or obvious joint effusion. No joint space narrowing. Bone density normal. No osseous lesions. Patella appears unremarkable. IMPRESSION: No significant osseous findings in the right knee. DATA REPOSITORY: RADIATION DOSE DELIVERED:
== END 2023-03-08 08:39 | disposition home or self-care (01) ==
LOC: DIORS 08:38
PROVIDERS: PCP Nurse Practitioner Family; Referring Provider Nurse Practitioner Family; Visit Provider Student in an Organized Health Care Education/Training Program
DX: M22.2X1 Patellofemoral disorders, right knee (principal); M22.2X2 Patellofemoral disorders, left knee; M79.18 Myalgia, other site
CPT/HCPCS: 20610; 73562; 99213; J1030

== ENCOUNTER 2023-03-11 13:41 | Outpatient (CLI) | payer MEDICARE, MEDICAID, SELFPAY | END 2023-03-11 13:42 | disposition home or self-care (01) | LOC: PUL 13:43 | PROVIDERS: PCP Nurse Practitioner Family; Referring Provider Student in an Organized Health Care Education/Training Program; Visit Provider Student in an Organized Health Care Education/Training Program | DX: J45.909 Unspecified asthma, uncomplicated (principal) | CPT/HCPCS: 83520 ==

== ENCOUNTER → 2023-03-22 10:42 | Outpatient (BNVA) | payer MEDICARE, MEDICAID, SELFPAY | PROVIDERS: PCP Nurse Practitioner Family; Referring Provider Nurse Practitioner Family; Visit Provider Student in an Organized Health Care Education/Training Program | DX: M22.2X2 Patellofemoral disorders, left knee (principal) | CPT/HCPCS: 20610; 99213; J1030 ==

== ENCOUNTER 2023-04-20 16:55 | Outpatient (REF) | payer MEDICARE, MEDICAID, SELFPAY ==
[2023-04-20 20:16] LABS: HDL Cholesterol 49 mg/dL (40-60); LDL CHOLESTEROL 137 mg/dL (<100)
[2023-04-20 20:34] LABS: Vitamin D 25 Total 44.1 ng/mL (30-100)
== END 2023-04-20 16:56 | disposition home or self-care (01) ==
LOC: NCHCN 16:55
PROVIDERS: PCP Nurse Practitioner Family; Visit Provider Nurse Practitioner Family
DX: E03.9 Hypothyroidism, unspecified (principal); K21.9 Gastro-esophageal reflux disease without esophagitis; M79.7 Fibromyalgia; E11.9 Type 2 diabetes mellitus without complications
CPT/HCPCS: 82306; 83721; 83718

== ENCOUNTER 2023-06-15 15:13 | Outpatient (REF) | payer MEDICARE, MEDICAID, SELFPAY ==
[2023-06-15 20:52] LABS: Vitamin B12 405 pg/mL (193-986)
[2023-06-23 12:33] LABS: O-desmethyltramadol 289 ng/mL (Cutoff:25); Tramadol 90 ng/mL (Cutoff:25)
== END 2023-06-15 15:14 | disposition home or self-care (01) ==
LOC: NCHCN 15:13
PROVIDERS: PCP Nurse Practitioner Family; Visit Provider Nurse Practitioner Family
DX: G89.29 Other chronic pain (principal); R53.83 Other fatigue; D50.8 Other iron deficiency anemias
CPT/HCPCS: 80373; 82607

== ENCOUNTER → 2023-07-11 15:05 | Outpatient (BNVA) | payer MEDICARE, MEDICAID, SELFPAY | PROVIDERS: PCP Nurse Practitioner Family; Referring Provider Nurse Practitioner Family; Visit Provider Physician Assistant Surgical | DX: J45.909 Unspecified asthma, uncomplicated (principal) | CPT/HCPCS: 96372 ==

== ENCOUNTER 2023-07-25 04:52 | Outpatient (CLI) | payer MEDICARE, MEDICAID, SELFPAY ==
[2023-07-25 12:55] LABS: FREE T4 1.32 ng/dL (0.76-1.46)
== END 2023-07-25 04:53 | disposition home or self-care (01) ==
PROVIDERS: PCP Nurse Practitioner Family; Visit Provider Internal Medicine Endocrinology, Diabetes & Metabolism
DX: E03.9 Hypothyroidism, unspecified (principal)
CPT/HCPCS: 36415; 84439; 84443

== ENCOUNTER → 2023-08-08 14:32 | Outpatient (BNVA) | payer MEDICARE, MEDICAID, SELFPAY | PROVIDERS: PCP Nurse Practitioner Family; Referring Provider Nurse Practitioner Family; Visit Provider Student in an Organized Health Care Education/Training Program | DX: J45.909 Unspecified asthma, uncomplicated (principal) | CPT/HCPCS: 99211 ==

== ENCOUNTER → 2023-09-05 14:12 | Outpatient (BNVA) | payer MEDICARE, MEDICAID, SELFPAY | PROVIDERS: PCP Nurse Practitioner Family; Referring Provider Nurse Practitioner Family; Visit Provider Physician Assistant Surgical | DX: J45.50 Severe persistent asthma, uncomplicated (principal); Z71.89 Other specified counseling | CPT/HCPCS: 96372 ==

== ENCOUNTER → 2023-10-11 14:33 | Outpatient (BNVA) | payer MEDICARE, MEDICAID, SELFPAY | PROVIDERS: PCP Nurse Practitioner Family; Referring Provider Nurse Practitioner Family; Visit Provider Physician Assistant Surgical | DX: J45.40 Moderate persistent asthma, uncomplicated (principal) | CPT/HCPCS: 96372 ==

== ENCOUNTER 2023-10-31 04:52 | Outpatient (CLI) | payer MEDICARE, MEDICAID, SELFPAY ==
[2023-10-31 13:03] LABS: FREE T4 1.22 ng/dL (0.76-1.46); TSH 1.77 uIU/mL (0.36-3.74)
== END 2023-10-31 04:53 | disposition home or self-care (01) ==
LOC: LBO 04:52
PROVIDERS: PCP Nurse Practitioner Family; Visit Provider Internal Medicine Endocrinology, Diabetes & Metabolism
DX: E03.9 Hypothyroidism, unspecified (principal)
CPT/HCPCS: 36415; 84439; 84443

== ENCOUNTER → 2023-11-10 14:44 | Outpatient (BNVA) | payer MEDICARE, MEDICAID, SELFPAY | PROVIDERS: PCP Nurse Practitioner Family; Referring Provider Nurse Practitioner Family; Visit Provider Physician Assistant Surgical | DX: J45.50 Severe persistent asthma, uncomplicated (principal) | CPT/HCPCS: 96372 ==

== ENCOUNTER → 2023-12-07 14:41 | Outpatient (BNVA) | payer MEDICARE, MEDICAID, SELFPAY | PROVIDERS: PCP Nurse Practitioner Family; Referring Provider Nurse Practitioner Family; Visit Provider Physician Assistant Surgical | DX: J45.909 Unspecified asthma, uncomplicated (principal) | CPT/HCPCS: 99214 ==

== ENCOUNTER 2023-12-08 15:15 | Outpatient (REF) | payer MEDICARE, MEDICAID, SELFPAY ==
--- NOTE | 2023-12-08 14:15 | SKI_PTH ---
PATIENT: Malu De LOC: NCN #:[id number] AGE/SX: 48/F ROOM: RE12/08/[address]: Zena Hughes V : 1975 BED: DIS: 12/08/2023 SPEC #: [id number] RECD: 12/08/23 18:31 STATUS: CURT BUNDY #: [id number] BENITA: 12/08/23 14:[address]: Zena Hughes V DEPT: Surgical Specimen RECD BY: Apurva Urbina ENTERED: 12/08/23 18:32 SP TYPE: ESTEFANY HILL DR: Brandee Fuchs Tissues: 1 - SKIN BIOPSY(SHAVE/PUNCH) Procedures: SKIN LEVEL 4 SPECIAL STAIN 1 Comments: [id number]
[2023-12-08 19:34] LABS: Iron 83 ug/dL (50-170)
[2023-12-08 19:36] LABS: Hemoglobin A1C 6.4 % (<5.7)
[2023-12-08 19:47] LABS: Ferritin 44 ng/mL (8-252)
[2023-12-08 20:01] LABS: Vitamin D 25 Total 42.4 ng/mL (30-100)
[2023-12-08 20:44] LABS: HCT 44.7 % (36.0-46.0); HGB 14.5 g/dL (11.2-15.7); MCH 29.1 pg (27.0-33.0); MCHC 32.4 % (32.0-36.0); MCV 90 fL (80-95); Platelet Count 330 10^3/uL (130-400); RBC 4.99 10^6/uL (3.93-5.22); RDW 13.6 % (11.7-14.6); RDW-SD 44.6 fL; WBC 6.76 10^3/uL (4.4-10.8)
== END 2023-12-08 15:16 | disposition home or self-care (01) ==
LOC: NCHCN 15:15
PROVIDERS: PCP Nurse Practitioner Family; Referring Provider Family Medicine; Visit Provider Family Medicine
DX: E11.9 Type 2 diabetes mellitus without complications (principal); Q79.60 Ehlers-Danlos syndrome, unspecified
CPT/HCPCS: 82306; 85027; 82728; 83036; 83540; 88305; 88312

== ENCOUNTER → 2023-12-12 13:43 | Outpatient (BNVA) | payer MEDICARE, MEDICAID, SELFPAY | PROVIDERS: PCP Nurse Practitioner Family; Referring Provider Nurse Practitioner Family; Visit Provider Physician Assistant Surgical | DX: J45.909 Unspecified asthma, uncomplicated (principal) | CPT/HCPCS: 96372 ==

== ENCOUNTER → 2024-01-10 08:34 | Outpatient (BNVA) | payer MEDICARE, MEDICAID, SELFPAY | PROVIDERS: PCP Nurse Practitioner Family; Referring Provider Nurse Practitioner Family; Visit Provider Physician Assistant Surgical | DX: J45.909 Unspecified asthma, uncomplicated (principal) | CPT/HCPCS: 96372 ==

== ENCOUNTER 2024-01-12 16:41 | Outpatient (REF) | payer MEDICARE, MEDICAID, SELFPAY | END 2024-01-12 16:42 | disposition home or self-care (01) | LOC: NCHCN 16:41 | PROVIDERS: PCP Nurse Practitioner Family; Visit Provider Nurse Practitioner Family | DX: R31.9 Hematuria, unspecified (principal) | CPT/HCPCS: 87077; 87086; 87186 ==

== ENCOUNTER 2024-01-15 11:33 | Emergency (ER) | payer MEDICARE, MEDICAID, SELFPAY ==
[2024-01-15 11:36] VITALS: BP 147/93; PULSE 83; RESP 16; TEMP 36.7; O2SAT 98
[2024-01-15 12:51] VITALS: BP 147/93; PULSE 83; RESP 16; TEMP 36.7; O2SAT 98
--- NOTE | 2024-01-15 14:30 | ED.GENADUL_ITS ---
Discharge Plan Disposition Patient Disposition: Home Condition: Stable Discharge Details Clinical Impression: UTI (urinary tract infection) Primary Care Provider: Brandee Fuchs ED Provider: Apurva Torres Home Meds and New Rx's Prescriptions: New cefpodoxime 100 mg tablet 100 mg PO BID Qty: 14 0RF Rx Instructions: must administer with a meal/food Continued pravastatin 10 mg tablet 10 mg PO DAILY Qty: 90 4RF pantoprazole 40 mg tablet,delayed release (DR/EC) 40 mg PO HS B Complex Plus Vitamin C [id number] mg capsule 1 cap PO DAILY Rx Instructions: give with food (meal/snack) multivitamin Tablet 1 tab PO DAILY levothyroxine 100 mcg capsule 100 mcg PO DAILY naltrexone 1.5 mg capsule 3 mg PO HS ondansetron HCl [Zofran] 4 mg tablet 4 mg PO DAILY PRN Spiriva Respimat 2.5 mcg/actuation mist 2 inh inhalation DAILY (DME) nebulizers Kit See Rx Instructions .Route Rx Instructions: As directed naproxen [Naprosyn] 500 mg tablet 500 mg PO BID cetirizine 10 mg tablet 10 mg PO DAILY PRN cholecalciferol (vitamin D3) 25 mcg (1,000 unit) capsule 2,000 unit PO DAILY metformin 500 mg tablet 1,000 mg PO BID Tezspire 210 mg/1.91 mL (110 mg/mL) syringe 210 mg subcut Q4W Qty: 1.91 12RF montelukast [Singulair] 10 MG tablet 10 mg PO HS triamcinolone acetonide [Nasacort] 55 mcg aerosol,spray 1 spray Inhalation DAILY Rx Instructions: one spray each nostril fluticasone furoate-vilanterol [Breo Ellipta] 1 EACH blister with device 1 puff Inhalation DAILY albuterol sulfate 2.5 MG/3 ML solution for nebulization 2.5 mg Inhalation PRN PRN multivitamin [Multiple Vitamins] Tablet 1 tab PO DAILY Qty: 0 0RF Discharge Instructions Instructions: Urinary Tract Infection in Women (ED) Additional Instructions: Take ibuprofen and Tylenol as needed for pain Take yogurt daily until completed Return earlier should you have new or worsening complaints your Referrals: Brandee Fuchs [Primary Care Provider] - HPI General Date/Time Provider Initiated Documentation: 01/15/24 12:02 . HPI Narrative: 48-year-old female presents with urinary frequency, burning, pressure, has not been sexually active for several years per patient. Denies risk of or STD. Denies fever or chills, denies flank pain. Related Data Home Medications Medication Instructions Recorded Confirmed montelukast 10 mg tablet 10 mg PO HS 07/05/15 01/15/24 (Singulair) fluticasone furoate 200 1 puff inhalation DAILY 01/26/16 01/15/24 mcg-vilanterol 25 mcg/dose inhalation powder (Breo Ellipta) albuterol sulfate 2.5 mg/3 mL 2.5 mg inhalation PRN PRN 03/17/18 01/15/24 (0.083 %) solution for nebulization multivitamin (Multiple Vitamins 1 tab PO DAILY #0 tabs 09/26/18 01/15/24 tablet) ondansetron HCl 4 mg tablet 4 mg PO DAILY PRN 07/28/21 01/15/24 (Zofran) tiotropium bromide 2.5 2 inh inhalation DAILY 07/28/21 01/15/24 mcg/actuation mist for inhalation (Spiriva Respimat) pravastatin 10 mg tablet 10 mg PO DAILY #90 tabs 09/21/21 01/15/24 naproxen 500 mg tablet (Naprosyn) 500 mg PO BID 03/01/22 01/15/24 nebulizers 03/01/22 12/07/23 cetirizine 10 mg tablet 10 mg PO DAILY PRN 08/25/22 01/15/24 cholecalciferol (vitamin D3) 25 2,000 unit PO DAILY 03/01/23 01/15/24 mcg (1,000 unit) capsule metformin 500 mg tablet 1,000 mg PO BID 03/01/23 01/15/24 triamcinolone acetonide 55 mcg 1 spray inhalation DAILY 03/01/23 01/15/24 nasal spray aerosol (Nasacort) pantoprazole 40 mg tablet,delayed 40 mg PO HS 06/02/23 01/15/24 release vitamin B comp and C no.3 15 mg-10 1 cap PO DAILY 07/11/23 01/15/24 mg-50 mg-5 mg-300 mg capsule (B Complex Plus Vitamin C) tezepelumab-ekko 210 mg/1.91 mL 210 mg (1.91 mL) subcut Q4W #1.91 10/06/23 01/15/24 (110 mg/mL) subcutaneous syringe mL (Tezspire) levothyroxine 100 mcg capsule 100 mcg PO DAILY 10/26/23 01/15/24 multivitamin 1 tab PO DAILY 10/26/23 01/15/24 naltrexone 1.5 mg capsule 3 mg PO HS 11/10/23 01/15/24 cefpodoxime 100 mg tablet 100 mg PO BID #14 tabs 01/15/24 Previous Rx's Medication Instructions Recorded multivitamin (Multiple Vitamins 1 tab PO DAILY #0 tabs 09/26/18 tablet) pravastatin 10 mg tablet 10 mg PO DAILY #90 tabs 09/21/21 tezepelumab-ekko 210 mg/1.91 mL 210 mg (1.91 mL) subcut Q4W #1.91 10/06/23 (110 mg/mL) subcutaneous syringe mL (Tezspire) cefpodoxime 100 mg tablet 100 mg PO BID #14 tabs 01/15/24 Allergies Allergy/AdvReac Type Severity Reaction Status Date / Time acetaminophen Allergy Severe Blisters Verified 01/15/24 11:41 face and hands benralizumab [From Fasenra] Allergy Severe Other (See Verified 01/15/24 11:41 Comment) celecoxib [From Celebrex] Allergy Severe Other (See Verified 01/15/24 11:41 Comment) cyclobenzaprine Allergy Severe Blisters Verified 01/15/24 11:41 hands and face duloxetine [From Cymbalta] Allergy Severe Other (See Verified 01/15/24 11:41 Comment) gabapentin Allergy Severe Other (See Verified 01/15/24 11:41 Comment) hydrocodone bitartrate Allergy Severe Blisters Verified 01/15/24 11:41 [From Vicodin] hands and face indomethacin Allergy Severe Blisters Verified 01/15/24 11:41 hands and face amitriptyline Allergy Intermediate Other (See Verified 01/15/24 11:41 Comment) dupilumab [From Dupixent Pen] Allergy Intermediate Other (See Verified 01/15/24 11:41 Comment) formoterol [From Dulera] Allergy Intermediate Other (See Verified 01/15/24 11:41 Comment) milnacipran [From Savella] Allergy Intermediate Other (See Verified 01/15/24 11:41 Comment) mometasone furoate Allergy Intermediate Other (See Verified 01/15/24 11:41 [From Dulera] Comment) tramadol Allergy Mild Other (See Verified 01/15/24 11:41 Comment) environmental AdvReac Intermediate asthma Uncoded 01/15/24 11:41 exacerbation General Stated Complaint: Urinary GEORGE: 3 Course Vital Signs Vital signs: Vital Signs Temperature 36.7 C 01/15/24 11:36 Pulse 83 01/15/24 11:36 Respiratory Rate 16 01/15/24 11:36 Blood Pressure 147/93 H 01/15/24 11:36 Pulse Oximetry 98 01/15/24 11:36 Temperature 36.7 C 01/15/24 12:51 Temperature Source Temporal Artery Scan 01/15/24 12:51 Pulse 83 01/15/24 12:51 Respiratory Rate 16 01/15/24 12:51 Respiratory Effort Normal, Non-Labored 01/15/24 11:40 Blood Pressure 147/93 H 01/15/24 12:51 Blood Pressure Position Sitting 01/15/24 12:51 Pulse Oximetry 98 01/15/24 12:51 Oxygen Delivery Method Room Air 01/15/24 12:51 Oxygen Flow Rate 0 01/15/24 12:51 Pain Level 8 01/15/24 12:51 Medical Decision Making This 48-year-old female presents with report of urinary frequency and burning, mild suprapubic tenderness, no CVA tenderness, afebrile and nontoxic Proteus positive Will start on cefpodoxime., Reviewed lab, microanalysis and culture from specimen previously Spent approximately 5 minutes reviewing prior diagnostic labs I was going to prescribe Pyridium however patient is allergic to Tylenol and cream metabolizes into acetaminophen, will hold Yogurt daily recommended while on antibiotics No evidence of systemic illness Recheck next week recommended Return precautions reviewed and patient expressed understanding Quality:SDOH Health Related Social Needs: No Data to Display PFSH All Active Problems (Updated 01/15/24 @ 12:41 by MARIAN Abel) UTI (urinary tract infection) (Acute) Chronic pain syndrome (Chronic) Encounter for injection education (Acute) Patellofemoral syndrome of both knees (Acute) 03/08/23 - 40 mg corticosteroid RIGHT knee injection 03/22/23 - 40 mg corticosteroid LEFT knee injection Amplified musculoskeletal pain (Acute) Gluteal tendinitis of both buttocks (Acute) Iliotibial band syndrome of both sides (Acute) Trochanteric bursitis of both hips (Acute) Abnormal echocardiography (Acute) 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 Type 2 diabetes mellitus without complications (Acute) Hyperlipidemia, unspecified (Acute) Smoker (Acute) Asthma (Chronic) DVT prophylaxis (Acute) Depression (Chronic) Acute psychosis (Acute) GERD (gastroesophageal reflux disease) (Acute) Medical History (Updated 01/15/24 @ 12:41 by MARIAN Abel) Gastropathy Neck pain Back pain Hypomagnesemia Pelvic pain Pain of right thumb Toe pain Blurred vision Candidiasis of genitalia in female Arthropathy of lumbosacral facet joint Daytime somnolence Palpitations Chest pain Sofy-Danlos syndrome Lumbar radiculopathy Obstructive sleep apnea Hair loss Hypothyroidism Rash Polycythemia Asthma Allergic rhinitis GERD (gastroesophageal reflux disease) Iron deficiency anemia Microcytic anemia Thalassemia Fibromyalgia Anxiety Chronic pain Joint pain Fatigue Surgical History (Updated 10/26/23 @ 12:19 by Yocasta Odom RN) H/O section History of bilateral tubal ligation also tumor removal off ovary EGD - MAC (03/17/18) Family History Maternal Grandmother Stroke Social History Smoking/Tobacco Use Status: Former Tobacco Use Smoking risk assessment performed?: Yes Alcohol Intake: never Drug use: Never Substance use type: does not use Household members: significant other and children Housing: house Current gender identity: female Do you feel safe at home: Yes Do you feel safe in your relationship?: Yes History History Para 2 Hx # Term Pregnancies Multiple births Hx # Pregnancies Ectopic pregnancies AB induced Hx Number of Living Children AB spontaneous
== END 2024-01-15 12:55 | disposition home or self-care (01) ==
PROVIDERS: Emergency Provider Physician Assistant; PCP Nurse Practitioner Family
DX: R30.0 Dysuria (principal); R35.0 Frequency of micturition; N39.3 Stress incontinence (female) (male); N39.0 Urinary tract infection, site not specified
CPT/HCPCS: 99283

== ENCOUNTER → 2024-01-18 14:07 | Outpatient (CLI) | payer MEDICARE, MEDICAID, SELFPAY ==
--- NOTE | 2024-01-18 | DI.CT_ITS ---
Exam(s) CT ABDOMEN PELVIS WO EXAM: CT ABDOMEN PELVIS WO CLINICAL HISTORY: ABD PAIN, R10.9. TECHNIQUE: Imaging Protocol: Axial computed tomography images with coronal and sagittal reformatted images were created and reviewed CONTRAST MATERIAL: Intravenous: none Oral: None COMPARISON: No exams were available for comparison FINDINGS: VISUALIZED LUNG BASES: No nodules nor pleural effusions evident. ABDOMEN: There is no ascites. LIVER: There is hypodense implying steatosis. There no discrete focal hepatic lesions identified. N o obvious dilated intrahepatic ducts. GALLBLADDER/BILIARY: No obvious gallbladder pathology. CBD is not dilated. PANCREAS: No evidence of pancreatic mass nor dilatation of the pancreatic duct. SPLEEN: Spleen is not enlarged. No obvious intrasplenic lesions. ADRENALS: There are no significant adrenal masses. KIDNEYS:No cysts evident. No solid renal masses. No calculi nor hydronephrosis. . ABDOMINAL AORTA: Abdominal aorta is not enlarged. LYMPH NODES: There is no retroperitoneal nor paraaortic adenopathy. ABDOMINAL WALL: No evidence of significant anterior abdominal wall nor inguinal hernia. GI: There is no evidence of bowel obstruction, free air, nor abscess. PELVIS: LYMPH NODES: There is no intrapelvic nor inguinal adenopathy. GI: No evidence of appendicitis.There are sigmoid diverticuli. No evidence of obvious acute divertic ulitis. URINARY BLADDER: Urinary bladder wall is uniformly thickened consistent with probable cystitis. No o bvious distinct mass. No radiopaque calculi in the lumen. REPRODUCTIVE: Uterus and adnexal regions appear age-appropriate. OSSEOUS: No significant osseous lesions. IMPRESSION: 1. The urinary bladder wall is uniformly thickened probably indicating cystitis. There are no radiop aque calculi in the urinary bladder nor elsewhere in the urinary tracts. 2. Sigmoid diverticulosis. No evidence of acute diverticulitis. No appendicitis. 3. Hepatic steatosis noted. RADIATION DOSE DELIVERED: Total DLP DATA REPOSITORY: All CT scans at this facility are submitted to the National Radiology Data Registry (NRDR) Dose Index Registry (DIR) with the [employer] (ACR). RADIATION OPTIMIZATION: All CT scans at this facility use at least one of these dose optimization te chniques: automated exposure control; mA and/or kV adjustment per patient size (includes targeted exa ms where dose is matched to clinical indication); or iterative reconstruction.
== END ==
PROVIDERS: PCP Nurse Practitioner Family; Visit Provider Nurse Practitioner Family
DX: R10.9 Unspecified abdominal pain (principal); K76.0 Fatty (change of) liver, not elsewhere classified; K57.30 Diverticulosis of large intestine without perforation or abscess without bleeding; N32.89 Other specified disorders of bladder
CPT/HCPCS: 74176

== ENCOUNTER 2024-01-18 18:25 | Outpatient (REF) | payer MEDICARE, MEDICAID, SELFPAY ==
[2024-01-18 15:34] LABS: Anion Gap 10.1 mmol/L (3-11); BUN 16 mg/dL (7-18); CO2 24.9 mmol/L (21.0-32.0); CREATININE 0.6 mg/dL (0.55-1.02); Calcium 9.2 mg/dL (8.5-10.1); Chloride 106 mmol/L (98-107); Estimated GFR 111.34 (mL/min/1.73m2); Glucose 102 mg/dL (74-106); Potassium 4.4 mmol/L (3.5-5.1); Sodium 141 mmol/L (136-145)
[2024-01-18 16:17] LABS: Bacteria Negative HPF (Negative); C & S Indicated? Yes; Casts 0-2 Hyaline LPF (Negative); Crystals Few Calcium Oxalate HPF (Negative); Epithelial Cells Few HPF (Negative); Mucus Trace (Negative); RBC 20-50 HPF (0-2)
== END 2024-01-18 18:26 | disposition home or self-care (01) ==
LOC: NCHCN 18:25
PROVIDERS: PCP Nurse Practitioner Family; Visit Provider Nurse Practitioner Family
DX: N39.0 Urinary tract infection, site not specified (principal); R30.0 Dysuria; R82.89 Other abnormal findings on cytological and histological examination of urine
CPT/HCPCS: 80048; 81015; 87086

== ENCOUNTER 2024-01-20 01:07 | Outpatient (CLI) | payer MEDICARE, MEDICAID, SELFPAY ==
[2024-01-20 10:57] LABS: FREE T4 1.36 ng/dL (0.76-1.46); TSH 1.04 uIU/Ml (0.36-3.74)
== END 2024-01-20 01:08 | disposition home or self-care (01) ==
LOC: LBO 01:09
PROVIDERS: PCP Nurse Practitioner Family; Visit Provider Internal Medicine Endocrinology, Diabetes & Metabolism
DX: E03.9 Hypothyroidism, unspecified (principal)
CPT/HCPCS: 36415; 84439; 84443

== ENCOUNTER → 2024-02-08 13:31 | Outpatient (BNVA) | payer MEDICARE, MEDICAID, SELFPAY | PROVIDERS: PCP Nurse Practitioner Family; Referring Provider Nurse Practitioner Family; Visit Provider Physician Assistant Surgical | DX: J45.909 Unspecified asthma, uncomplicated (principal) | CPT/HCPCS: 96372 ==

== ENCOUNTER → 2024-03-08 09:42 | Outpatient (BNVA) | payer MEDICARE, MEDICAID, SELFPAY | PROVIDERS: PCP Nurse Practitioner Family; Referring Provider Nurse Practitioner Family; Visit Provider Physician Assistant Surgical | DX: J45.909 Unspecified asthma, uncomplicated (principal) | CPT/HCPCS: 96372 ==

== ENCOUNTER → 2024-04-18 10:55 | Outpatient (BNVA) | payer MEDICARE, MEDICAID, SELFPAY | PROVIDERS: PCP Nurse Practitioner Family; Referring Provider Nurse Practitioner Family; Visit Provider Internal Medicine Critical Care Medicine | DX: J45.50 Severe persistent asthma, uncomplicated (principal) | CPT/HCPCS: 96372 ==

== ENCOUNTER 2024-05-14 03:33 | Outpatient (CLI) | payer MEDICARE, MEDICAID, SELFPAY ==
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
--- OUTSIDE RECORDS SUMMARY | 2024-05-14 03:35 | XMS_ITS | Encounter Summary ---
[place] [address] Care Team Providers Care Gas Stove Servicer Helper Name Role Phone Brandee Fuchs Obdulia GAMBLE Primary Care Provider [phone] Reason for Referral * Allergy Testing (Routine) - Closed Specialty Diagnoses / Procedures Referred By Adryan marin Referred To Contact Allergy Diagnoses Allergic rhinitis, unspecified seasonality, unspecified trigger Zena Hughes MD [address] [place] [address] [facility]ergy [address] [place] [address] Referral ID Status Reason Start Date Expiration Date V isits Requested Visits Authorized [id number] Closed Consult, Test & Treat PCP Updated and/or Approved 12/07/2022 12/07/2023 12 12 Encounter Details Date Type Department Care Team (Latest Contact Info) Description 12/07/2022 Transcribe Orders eDH Incoming Referrals [phone] Zena Hughes MD [address] [place], [place] [id number] Allergic rhinitis, unspecified seasonality, unspecified trigger Social History Tobacco Use Types Packs/Day Years [...] Scheduled Referrals Name Type Priority Associated Diagnoses Orde r Schedule Referral to Allergy Outpatient Referral Routine Allergic rhinitis, unspecified seasonality, unspecified trigger Ordered: 12/07/2022 documented as of this encounter Goals Goal Patient Goal Type Associated Problems Recent Progress Patient-Stated? Author DH Home Medication Compliance and Understanding Patient Facing Action Plan Yes Rekha Coburn, [facility] Note: Reduction in use of SMILEY to 1-2 nebulizer treatments per day. Measured by: Patient report Time frame: 6 months documented as of this encounter Visit Diagnoses Diagnosis Allergic rhinitis, unspecified seasonality, unspecified trigger documented in this encounter Care Teams Gas Stove Servicer Helper Relationship Specialty Start Date End Date Brandee Fuchs APRN PCP - General Family Medicine 01/17/19 documented as of this encounter
--- OUTSIDE RECORDS SUMMARY | 2024-05-14 03:35 | XMS_ITS | Encounter Summary ---
[place] [address] Care Team Providers Care Electrical Wiring Lineman Name Role Phone Brandee Fuchs APRN Primary Care Provider [phone] Encounter Details Date Type Department Care Team (Late st Contact Info) Description 09/25/2021 [place] [phone] Jodi Nieves Social History Tobacco Use Types Packs/Day Years [...] Type Associated Problems Recent Progress Patient-Stated? Author [facility] Medication Compliance and Understanding Patient Facing Action Plan Yes Rekha Coburn, [facility] Note: Reduction in use of SMILEY to 1-2 nebulizer treatments per day. Measured by: Patient report Time frame: 6 months documented as of this encounter Visit Diagnoses Not on filedocumented in this encounter Care Teams Electrical Wiring Lineman Relationship Specialty Start Date End Date Brandee Fuchs APRN PCP - General Family Medicine 01/17/19 documented as of this encounter
--- OUTSIDE RECORDS SUMMARY | 2024-05-14 03:35 | XMS_ITS | Encounter Summary ---
Author [facility] Address [facility] [place] [address] Care Team Providers Care Food Taster Name Role Phone Brandee Fuchs APRN Primary Care Provider [phone] Encounter Details Date Type Department Care Team (Late st Contact Info) Description 06/25/2021 [place] [address] Nuha Dubon MD [facility] [place] [address] Social History Tobacco Use Types Packs/Day Years [...] Type Associated Problems Recent Progress Patient-Stated? Author [facility] Medication Compliance and Understanding Patient Facing Action Plan Yes Rekha Coburn, [facility] Note: Reduction in use of SMILEY to 1-2 nebulizer treatments per day. Measured by: Patient report Time frame: 6 months documented as of this encounter Visit Diagnoses Not on filedocumented in this encounter Care Teams Food Taster Relationship Specialty Start Date End Date Brandee Fuchs, MAVIS PCP - General Family Medicine 01/17/19 documented as of this encounter
--- OUTSIDE RECORDS SUMMARY | 2024-05-14 03:35 | XMS_ITS | Encounter Summary ---
[place] [address] Care Team Providers Care Slasher Tender Name Role Phone Daniellino Brandee Steiner APRN Primary Care Provider [phone] Reason for Visit * Reason Comments Prior Authorization Fasenra Pen 30mg/mL Encounter Details Date Type Department Care Team (Late st Contact Info) Description 05/28/2021 Specialty [place] [address] Isabella Price, [facility] Social History Tobacco Use Types Packs/Day Years [...] documented as of this encounter Progress Notes * Isabella Chairez - 05/28/2021 9:26 AM EDTSummary: Aldo FONSECA submission [facility], Medication Prior Authorization Patient: Malu De Patient : 1975 Patient Address: [address] [place] [id number] (home) Medication Name: FASENRA PEN 30 MG/ML SUBCUTANEOUS AUTO-INJECTOR Medication ID: [id number] Patient Location: [facility] PUL[facility] 5C Patient Location Comment: Subscriber Insurance: [place] Medicaid Subscriber Insurance Comment: Physician: HELEN RODGERS Physician Comment: Sent Via: Fax More[place]: Ref/Pranav/PA#: Medication Strength Frequency Requested: Inject 30mg subcutaneously every 28 days for the first three doses, then 30mg every 56 days. Qty/Day Supply: 11/06 New Start: Renewal Diagnosis & ICD-10 Code: Severe persisten asthma, J45.50 Patient Notified: Yes Submission Notes: None Isabella Chairez 05/28/21 9:30 AM * Isabella Chairez - 05/28/2021 9:26 AM EDTSumkristy: Aldo FONSECA approval [facility], Prior Authorization Approval Medication Name: FASENRA PEN 30 MG/ML SUBCUTANEOUS AUTO-INJECTOR Medication ID: [id number] Approval Dates: 05/28/2021 to 07/28/2021 Insurance requirements/notes: For continuation of therapy after the initial 3 month authorization, the patient must continue to receive therapy with an ICS/LABA and have either a decreased frequency of exacerbations, decreased use of maintenance oral corticosteriods, reduction in the signs and symptoms of asthma, or an increase in predicted FEV1 from baseline. Other Notes: None Case/Reference #: [id number] Approval notification Received via: Fax Copay: $3.00 Copay assistance: None Copay Notes: Insurance mandated Pharmacy: Fillable at [facility]: Yes Pharmacy staff will be reaching out to the patient to inform them of their medication's [facility]. If applicable, a pharmacist will speak with the patient to offer our specialty pharmacy services and to arrange delivery of their medication. Isabella Chairez 05/28/21 10:41 AM documented in this encounter Plan of Treatment Not on file documented as of this encounter Goals Goal Patient Goal Type Associated Problems Recent Progress Patient-Stated? Author DH Home Medication Compliance and Understanding Patient Facing Action Plan Yes Rekha Coburn, [facility] Note: Reduction in use of SMILEY to 1-2 nebulizer treatments per day. Measured by: Patient report Time frame: 6 months documented as of this encounter Visit Diagnoses Not on filedocumented in this encounter Care Teams Slasher Tender Relationship Specialty Start Date End Date Brandee Fuchs APRN PCP - General Family Medicine 01/17/19 documented as of this encounter
--- OUTSIDE RECORDS SUMMARY | 2024-05-14 03:35 | XMS_ITS | Encounter Summary ---
[place] [address] Care Team Providers Care Composite Bond Technician Name Role Phone Brandee Fuchs APRN Primary Care Provider [phone] Encounter Details Date Type Department Care Team (Late st Contact Info) Description 04/22/2022 [place] [id number] Jodi Nieves Social History Tobacco Use Types [...] Type Associated Problems Recent Progress Patient-Stated? Author [facility] Medication Compliance and Understanding Patient Facing Action Plan Yes Rekha Coburn, [facility] Note: Reduction in use of SMILEY to 1-2 nebulizer treatments per day. Measured by: Patient report Time frame: 6 months documented as of this encounter Visit Diagnoses Not on filedocumented in this encounter Care Teams Composite Bond Technician Relationship Specialty Start Date End Date Brandee Fuchs APRN PCP - General Family Medicine 01/17/19 documented as of this encounter
--- OUTSIDE RECORDS SUMMARY | 2024-05-14 03:35 | XMS_ITS | Encounter Summary ---
Author Organization [facility] [place] [address] Care Team Providers Care Computer Systems Security Administrator Name Role Phone Brandee Fuchs APRN Primary Care Provider [phone] Encounter Details Date Type Department Care Team (Latest Contact Info) Description 12/16/2022 Travel Social History Tobacco Use Types Packs/Day Years [...] Type Associated Problems Recent Progress Patient-Stated? Author [facility] Medication Compliance and Understanding Patient Facing Action Plan Yes Rekha Coburn, [facility] Note: Reduction in use of SMILEY to 1-2 nebulizer treatments per day. Measured by: Patient report Time frame: 6 months documented as of this encounter Visit Diagnoses Not on filedocumented in this encounter Care Teams Computer Systems Security Administrator Relationship Specialty Start Date End Date Brandee Fuchs APRN PCP - General Family Medicine 01/17/19 documented as of this encounter
--- OUTSIDE RECORDS SUMMARY | 2024-05-14 03:35 | XMS_ITS | Clinical Summary ---
Author Organization [facility] [place] [address] Care Team Providers Care Sign Artist Name Role Phone Brandee Fuchs APRN Primary Care Provider Allergies Active Allergy Reactions Criticality Noted Date Comments Acetaminophen 09/13/2016 Mouth blisters Amitriptyline Anxiety 11/29/2019 Celecoxib 03/25/2021 Nausea and palpitations Cyclobenzaprine Other (See Comments) 08/17/2017 Small blisters Duloxetine Anxiety 11/29/2019 Mometasone-Formoterol Other (See Comments) 02/01/2020 Mental alterations Dupilumab Rash Medium 08/06/2020 Rash intermittently on extremities. Benralizumab Hives,Shortness Of Breath High 12/16/2022 Gabapentin Other (See Comments) 11/29/2019 [place] like body was shaking, nerves vibrating, hands went numb Indomethacin 05/31/2019 Milnacipran Other (See Comments) High 10/09/2020 Nerve temors Tramadol Other (See Comments) 12/14/2019 Anxiety, foggy head, unaware Hydrocodone-Acetaminoph en 09/13/2016 Mouth blisters Medications Medication Sig Dispensed Refills Start Date End Date Status albuterol (PROVENTIL) 2.5 mg /3 mL (0.083 %) Solution for Nebulization Take 2.5 mg by nebulization as needed. 0 09/10/2016 Active montelukast (SINGULAIR) 10 mg Tablet Take 10 mg by mouth daily. 0 09/10/2016 Active omeprazole (PRILOSEC) 40 mg Capsule, Delayed Release(E.C.) Take 40 mg by mouth daily. 0 09/10/2016 Active BREO ELLIPTA 200-25 mcg/dose Disk with Device Inhale 1 puff into the lungs daily. 1 07/14/2016 Active SPIRIVA RESPIMAT 1.25 mcg/actuation Mist Inhale 2 puffs into the lungs daily. 1 07/14/2016 Active triamcinolone (NASACORT OR NASACORT OTC) 55 mcg Aerosol, [place] 2 sprays by Nasal route daily. Active multivitamin (THERAGRAN) Tablet Take 1 tablet by mouth daily. Active folic acid (FOLVITE) 1 mg Tablet Take 1 mg by mouth daily. Active ondansetron (ZOFRAN) 4 mg Tablet Take 1 tablet by mouth 2 times daily as needed for Nausea. Take 1 hour prior to oral iron. 30 tablet 3 06/26/2019 Active cholecalciferol, Vitamin D3, 1,000 unit Capsule Take 2,000 Units by mouth daily. Active dexamethasone (Decadron) 4 mg Tablet Take 1 tablet by mouth daily. Take daily x 3 days after each iron infusion 6 tablet 02/21/2020 Active Additional Information Patient not taking.Reported on 06/29/2021 dexamethasone (Decadron) 4 mg TabletIndications: Iron deficiency anemia, unspecified iron deficiency anemia type Take 1 tablet by mouth daily. Take one tablet daily X3 days following Iron infusion. 9 tablet 06/17/2020 Active Additional Information Patient not taking.Reported on 06/29/2021 Fasenra Pen 30 mg/mL Auto-Injector Inject 30 mg subcutaneously Every 8 Weeks. 1 mL 3 06/25/2021 Active Additional Information Patient not taking.Reported on 12/16/2022 pravastatin (Pravachol) 10 mg Tablet Take 10 mg by mouth daily. Active levothyroxine (Synthroid) 75 mcg Tablet Take 75 mcg by mouth daily. Active naproxen (NAPROSYN) 500 mg Tablet Take 500 mg by mouth 2 times daily (with meals). Active metFORMIN (Glucophage) 500 mg Tablet Take 1,000 mg by mouth 2 times daily (with meals). Active Cetirizine (ZyrTEC) 10 mg Capsule Take 10 mg by mouth daily. Active Active Problems Problem Noted Date Diagnosed Date Iron deficiency anemia due to chronic blood loss 12/16/2022 Asthma 09/20/2016 Fatigue Fibromyalgia Family History Medical History Relation Comments Alcohol [...] on file Sexual Orientation Not on file Last Filed Vital Signs Vital Sign Reading Time Taken Comments Blood Pressure 110/69 12/16/2022 10:06 AM EST Pulse 70 12/16/2022 10:06 AM EST Temperature 36.8 ??C (98.3 ??F) 12/16/2022 10:[address] Respiratory Rate 18 12/16/2022 10:06 AM EST Oxygen Saturation 99% 06/29/2021 3:09 PM EDT Inhaled Oxygen Concentration - - Weight 86.2 kg (190 lb) 12/16/2022 10:06 AM EST Height 152.6 cm (5' 0.08) 12/16/2022 10:[address] Body Mass Index 37.01 12/16/2022 10:06 AM EST Plan of Treatment Health Maintenance Due Date Last Done Comments CT Colonography 1976 Colonoscopy 1975 Colorectal Cancer Screening 1975 FIT DNA 1976 FIT 1975 Sigmoidoscopy (10 year) with FIT yearly 1975 Sigmoidoscopy 1975 Pneumococcal Vaccine: At-Risk 5-64yrs (1 of 2 - PCV) 0 1982 HIV screen 1994 Hepatitis C Screening 1994 Hepatitis B vaccine (0-59 yrs) (1) 1995 Tdap adult 1995 Tetanus vaccine 1995 HPV test 2006 PAP Smear 2006 Breast Cancer Share Decision Needed 2016 Breast Cancer screening 2016 Diabetes Screening (HgbA1C or Glucose) 09/13/2019 Covid-19 Vaccine (24 season) 2023 Influenza (Flu) vaccine (1 o f 1 - Influenza standard series) 06/10/2024 Goals Goal Patient Goal Type Associated Problems Recent Progress Patient-Stated? Author [facility] Medication Compliance and Understanding Patient Facing Action Plan Yes Rekha Coburn, [facility] Note: Reduction in use of SMILEY to 1-2 nebulizer treatments per day. Measured by: Patient report Time frame: 6 months Procedures Procedure Name Priority Date/Time Associated Diagnosis Comments COMPREHENSIVE METABOLIC PANEL Routine 09/13/2016 11:35 AM EST Neck pain Chronic midline low back pain without sciatica Diffuse pain Arthralgia, unspecified joint from Last 3 Months or Most Recently Relevant to Health Maintenance Results * Comprehensive metabolic panel (non-fasting) (09/13/2016 11:35 AM EST) Glucose 106 65 - 199 mg/dL [facility] Comment:Diabetes: >=200 mg/d L plus symptoms Blood Urea Nitrogen 13 8 - 18 mg/dL [facility] Creatinine 0.81 0.70 - 1.20 mg/dL [facility] Comment: Please note that the pediatric reference intervals supplied above were not validated [place] [facility] Results from pediatric patients should be interpreted in conjunction to the patient's age, height and muscle mass. Sodium 140 135 - 145 mmol/L [facility] Potassium 4.1 3.5 - 5.0 mmol/L [facility] Comment: Please note: ??Patients with WBC >100,000 may have falsely elevated Potassium levels. ??For accurate Potassium quantification in these patients send serum separator tube (gold top) for subsequent determinations. ??Contact the Clinical Chemistry Laboratory if there are any questions. Chloride 104 98 - 107 mmol/L [facility] Carbon Dioxide 23 22 - 31 mmol/L [facility] Anion Gap 13 5 - 15 mmol/L [facility] Calcium 8.9 8.5 - 10.5 mg/dL [facility] Protein, Total 7.3 6.1 - 8.0 gm/dL [facility] Albumin 4.5 3.2 - 5.2 gm/dL [facility] Aspartate Aminotransferase 13 0 - 30 unit/L [facility] Alanine Aminotransferase 8 0 - 30 unit/L [facility] Alkaline Phosphatase 95 40 - 104 unit/L [facility] Bilirubin, Total 0.2 0.2 - 1.3 mg/dL [facility] Bilirubin, Direct <0.1 0.0 - 0.3 mg/dL [facility] Est Glomerular Filtration Rate >60 >=60 [facility] Comment: This estimated GFR (eGFR) value was calculated using the MDRD equation which has been validated on patients between the ages of 18 and 70. The MDRD should not be used to assess kidney function in patients < 18 years of age or in patients with extremes of body mass, or in patients with acute kidney failure. This value should be multiplied by 1.2 for patients. For further information please copy and paste the following links into your internet browser. http://BlogBus/DHnkdep [email or web address]/[email or web address] Blood specimen (specimen) 09/13/2016 11:35 AM EST 09/13/2016 11:39 AM EST Narrative Resulting Agency Comment Spec In Lab Jm Camargo MD CHEMISTRY ORDERABLES [facility] [place] [phone] from Last 3 Months or Most Recently Relevant to Health Maintenance Care Teams Sign Artist Relationship Specialty Start Date End Date Brandee Fuchs APRN PCP - General Family Medicine 01/17/19
--- OUTSIDE RECORDS SUMMARY | 2024-05-14 03:35 | XMS_ITS | Encounter Summary ---
[place] [address] Care Team Providers Care Packaging Operator Name Role Phone Brandee Fuchs APRN Primary Care Provider [phone] Reason for Referral * Consultation (Routine) - Closed Specialty Diagnoses / Procedures Referred By Adryan marin Referred To Contact Rheumatology Diagnoses Fibromyalgia Brandee Fuchs APRN [address] [place] [address] [facility] [address] [place] [phone] Referral ID Status Reason Start Date Expiration Date V isits Requested Visits Authorized [id number] Closed Consult, Test & Treat PCP Updated and/or Approved 05/02/2023 05/01/2024 6 6 Encounter Details Date Type Department Care Team (Late st Contact Info) Description 05/02/2023 Transcribe Orders eDH Incoming Referrals [phone] Brandee Fuchs APRN [address] [place], [place] [id number] Fibromyalgia Social History Tobacco Use Types Packs/Day Years [...] Referrals Name Type Priority Associated Diagnoses Order Schedule Referral to Rheumatology Outpatient Referral Routine Fibromyalgia Ordered: 05/02/2023 documented as of this encounter Goals Goal Patient Goal Type Associated Problems Recent Progress Patient-Stated? Author [facility] Medication Compliance and Understanding Patient Facing Action Plan Yes Rekha Cbourn, [facility] Note: Reduction in use of SMILEY to 1-2 nebulizer treatments per day. Measured by: Patient report Time frame: 6 months documented as of this encounter Visit Diagnoses Diagnosis Fibromyalgia Mylagia and myositis, unspecified documented in this encounter Care Teams Packaging Operator Relationship Specialty Start Date End Date Brandee Fuchs APRN PCP - General Family Medicine 01/17/19 documented as of this encounter
--- OUTSIDE RECORDS SUMMARY | 2024-05-14 03:35 | XMS_ITS | Encounter Summary ---
Author Organization [facility] [address] Care Team Providers Care Mobile Lounge Driver Name Role Phone DanielBrandee huynh Obdulia GAMBLE Primary Care Provider [phone] Encounter Details Date Type Department Care Team (Late st Contact Info) Description 07/29/2021 Telephone [place] [address] Ronnell Salas MD [facility] DR HEMATOLOGY [place] [address] Social History Tobacco Use Types Packs/Day Years [...] documented as of this encounter Miscellaneous Notes * Telephone Encounter - Ronnell Salas MD - 07/29/2021 10:21 AM EDT Received repeat labs from [facility] from 07/03 WBC=10.27 Hgb 14.4 (from 16.1 on 04/08/21) MCV 90.8 Plts count 288 ANC 6.49 Iron 54 (from 78 in March) TIBC 303 (from 300 in March) Transferrin Sat % 18% (From 26% in March) Ferritin 37 (from 45 in March and 101 in September 2020) Based on these findings would not evaluate the transient one time erythrocytosis further given thatthe other cell lines are unremarkable. Would repeat iron studies and ferritin and CBC in 2-3 months and consider further IV iron infusionsat that time (~ a year from her last) Called to discuss and reached a VM and left message asking for a call back with times when it wouldbe best to reach her to talk about next steps. documented in this encounter Plan of Treatment Not on file documented as of this encounter Goals Goal Patient Goal Type Associated Problems Recent Progress Patient-Stated? Author [facility] Medication Compliance and Understanding Patient Facing Action Plan Yes Rekha Coburn, [facility] Note: Reduction in use of SMILEY to 1-2 nebulizer treatments per day. Measured by: Patient report Time frame: 6 months documented as of this encounter Visit Diagnoses Not on filedocumented in this encounter Care Teams Mobile Lounge Driver Relationship Specialty Start Date End Date Brandee Fuchs APRN PCP - General Family Medicine 01/17/19 documented as of this encounter
--- OUTSIDE RECORDS SUMMARY | 2024-05-14 03:35 | XMS_ITS | Encounter Summary ---
[place] [address] Care Team Providers Care Government Affairs Researcher Name Role Phone DanielBrandee huynh Obdulia GAMBLE Primary Care Provider [phone] Reason for Visit * Reason Comments Prior Authorization Fasenra 30mg pen Encounter Details Date Type Department Care Team (Late st Contact Info) Description 06/26/2021 Specialty [place] [address] Tracy Huang, AMALGAMATOR Social History Tobacco Use Types Packs/Day Years [...] as of this encounter Progress Notes * Tracy Huang - 06/26/2021 10:22 AM EDTSummary: Fasenra maintenance PA submission [facility], Medication Prior Authorization Patient: [place] De Patient : 1975 Patient Address: [address] [place] [id number] (home) Medication Name: FASENRA PEN 30 MG/ML SUBCUTANEOUS AUTO-INJECTOR Medication ID: [id number] Patient [place] [facility] Patient Location Comment: Subscriber Insurance: [...] of Fasenra Tracy Huang 06/26/21 10:25 AM * Tracy Huang - 06/26/2021 10:22 AM EDTSummary: Fasenra maint dose PA approval [facility], Prior Authorization Approval Medication Name: FASENRA PEN 30 MG/ML SUBCUTANEOUS AUTO-INJECTOR Medication ID: [id number] Approval Dates: 06/26/2021 to 09/25/2021 Insurance requirements/notes: Can fill at pharmacy Other Notes: None Case/Reference #: [id number] Approval notification Received via: Fax Copay: $3.00 Copay assistance: None Copay Notes: Copay is affordable Insurance mandated Pharmacy: [facility] Fillable at [facility]: Yes Pharmacy staff will be reaching out to the patient to inform them of their [facility]. If applicable, a pharmacist will speak with the patient to offer our specialty pharmacy services and to arrange delivery of their medication. Tracy Huang 09/17/21 10:45 AM documented in this encounter Plan of Treatment Not on file documented as of this encounter Goals Goal Patient Goal Type Associated Problems Recent Progress Patient-Stated? Author [facility] Medication Compliance and Understanding Patient Facing Action Plan Yes Rekha Coburn RPH Note: Reduction in use of SMILEY to 1-2 nebulizer treatments per day. Measured by: Patient report Time frame: 6 months documented as of this encounter Visit Diagnoses Not on filedocumented in this encounter Care Teams Government Affairs Researcher Relationship Specialty Start Date End Date Brandee Fuchs APRN PCP - General Family Medicine 01/17/19 documented as of this encounter
--- OUTSIDE RECORDS SUMMARY | 2024-05-14 03:35 | XMS_ITS | Encounter Summary ---
[place] [address] Care Team Providers Care Hvac Technician Residential Name Role Phone Brandee Fuchs APRN Primary Care Provider [phone] Encounter Details Date Type Department Care Team (Late st Contact Info) Description 02/02/2022 Telephone [place] [phone] Jodi Nieves Social History Tobacco Use Types [...] Type Associated Problems Recent Progress Patient-Stated? Author [facility] Medication Compliance and Understanding Patient Facing Action Plan Yes Rekha Coburn, [facility] Note: Reduction in use of SMILEY to 1-2 nebulizer treatments per day. Measured by: Patient report Time frame: 6 months documented as of this encounter Visit Diagnoses Not on filedocumented in this encounter Care Teams Hvac Technician Residential Relationship Specialty Start Date End Date Brandee Fuchs APRN PCP - General Family Medicine 01/17/19 documented as of this encounter
--- OUTSIDE RECORDS SUMMARY | 2024-05-14 03:35 | XMS_ITS | Encounter Summary ---
Author Organization [facility] [address] Care Team Providers Care Extra Hand Name Role Phone Brandee Fuchs APRN Primary Care Provider Encounter Details Date Type Department Care Team (Late st Contact Info) Description 06/26/2021 Telephone Hematology/Oncology at [address] [address] Ernie Cortez Social History Tobacco Use Types Packs/Day Years [...] on filedocumented in this encounter Care Teams Extra Hand Relationship Specialty Start Date End Date Brandee Fuchs APRN PCP - General Family Medicine 01/17/19 documented as of this encounter
--- OUTSIDE RECORDS SUMMARY | 2024-05-14 03:35 | XMS_ITS | Encounter Summary ---
[place] [address] Care Team Providers Care Wood Bucker Name Role Phone Brandee Fuchs APRN Primary Care Provider [phone] Encounter Details Date Type Department Care Team (Late st Contact Info) Description 03/26/2022 [place] [phone] Jodi Nieves Social History Tobacco Use Types [...] Type Associated Problems Recent Progress Patient-Stated? Author [facility] Medication Compliance and Understanding Patient Facing Action Plan Yes Rekha Coburn, [facility] Note: Reduction in use of SMILEY to 1-2 nebulizer treatments per day. Measured by: Patient report Time frame: 6 months documented as of this encounter Visit Diagnoses Not on filedocumented in this encounter Care Teams Wood Bucker Relationship Specialty Start Date End Date Brandee Fuchs APRN PCP - General Family Medicine 01/17/19 documented as of this encounter
--- OUTSIDE RECORDS SUMMARY | 2024-05-14 03:35 | XMS_ITS | Encounter Summary ---
Author Organization [facility] [place] [address] Care Team Providers Care Interviewing Clerk Name Role Phone Brandee Fuchs APRN Primary Care Provider [phone] Encounter Details Date Type Department Care Team (Latest Contact Info) Description 12/13/2022 Travel Social History Tobacco Use Types Packs/Day [...] Type Associated Problems Recent Progress Patient-Stated? Author [facility] Medication Compliance and Understanding Patient Facing Action Plan Yes Rekha Coburn, [facility] Note: Reduction in use of SMILEY to 1-2 nebulizer treatments per day. Measured by: Patient report Time frame: 6 months documented as of this encounter Visit Diagnoses Not on filedocumented in this encounter Care Teams Interviewing Clerk Relationship Specialty Start Date End Date Brandee Fuchs APRN PCP - General Family Medicine 01/17/19 documented as of this encounter
--- OUTSIDE RECORDS SUMMARY | 2024-05-14 03:35 | XMS_ITS | Encounter Summary ---
[place] [address] Care Team Providers Care Sales And Marketing Vice President Name Role Phone Daniellino Brandee Steiner APRN Primary Care Provider [phone] Reason for Visit * Reason Comments Medication Management Encounter Details Date Type Department Care Team (Late st Contact Info) Description 10/05/2021 Specialty [place] [address] Robina Stanford [facility] Social History Tobacco Use Types Packs/Day Years [...] as of this encounter Progress Notes * Robina Apple RPH - 10/05/2021 9:46 AM EST Clinical Management Plan: Transfer of Care/Discharge Specialty Services Specialty Pharmacy Consultation; Robina Apple [facility] (CMM) [place] [address] [facility] [address] Telephone Information: Work Phone Not on file. [...] were made at the appointment and that [facility] isproviding recommendations (summary located at top of note) for provider review and follow up. Robina Apple RPH 10/05/21 9:47 AM documented in this encounter Plan of Treatment Not on file documented as of this encounter Goals Goal Patient Goal Type Associated Problems Recent Progress Patient-Stated? Author [facility] Medication Compliance and Understanding Patient Facing Action Plan Yes Rekha Coburn [facility] Note: Reduction in use of SMILEY to 1-2 nebulizer treatments per day. Measured by: Patient report Time frame: 6 months documented as of this encounter Visit Diagnoses Not on filedocumented in this encounter Care Teams Sales And Marketing Vice President Relationship Specialty Start Date End Date Brandee Fuchs APRN PCP - General Family Medicine 01/17/19 documented as of this encounter
--- OUTSIDE RECORDS SUMMARY | 2024-05-14 03:35 | XMS_ITS | Encounter Summary ---
[place] [address] Care Team Providers Care Credit Collection Specialist Name Role Phone Daniellino Brandee Steiner APRN Primary Care Provider [phone] Reason for Visit * Reason Comments Specialty Pharmacy Review Medication Management Encounter Details Date Type Department Care Team (Late st Contact Info) Description 05/15/2021 Specialty [place] [address] Robina Regan [facility] Social History Tobacco Use Types Packs/Day Years [...] of this encounter Progress Notes * Robina Regan RPH - 05/15/2021 11:59 PM EDT Clinical Management Plan: Transfer of Care/Discharge Specialty Services Specialty Pharmacy Consultation; Robina Regan [facility] (CMM) [address] [facility] [address] Telephone Information: Work Phone Not on file. Is the patient transferring services to a different Specialty Pharmacy or discontinuing the medication? Discontinuing Services Medication: Aldo Reason for discontinuation or transfer: Lost to contact Approximate date of discontinuation or transfer: 05/15/2021 Patient's response to therapy: Patient has not replied to outreach attempts for refills. Let us know that she soul be receiving doses at local PCP office but has not confirmed when she initiated treatment. DC'd from services at this time due to inability to reach patient. Summary of services provided by [facility]: Benefits investigation, pharmacist extraction operator 02/05 Summary of on-going needs: benefits investigation [...] were made at the appointment and that [facility] isproviding recommendations (summary located at top of note) for provider review and follow up. Robina Regan RPH 06/29/21 1:31 PM documented in this encounter Plan of Treatment Not on file documented as of this encounter Goals Goal Patient Goal Type Associated Problems Recent Progress Patient-Stated? Author [facility] Medication Compliance and Understanding Patient Facing Action Plan Yes Rekha Coburn [facility] Note: Reduction in use of SMILEY to 1-2 nebulizer treatments per day. Measured by: Patient report Time frame: 6 months documented as of this encounter Visit Diagnoses Not on filedocumented in this encounter Care Teams Credit Collection Specialist Relationship Specialty Start Date End Date Brandee Fuchs APRN PCP - General Family Medicine 01/17/19 documented as of this encounter
--- OUTSIDE RECORDS SUMMARY | 2024-05-14 03:35 | XMS_ITS | Encounter Summary ---
Author Organization [facility] Address [facility] [place] [address] Care Team Providers Care Hand Welt Butter Name Role Phone Brandee Fuchs Obdulia GAMBLE Primary Care Provider [phone] Reason for Visit * Reason Comments IV Medication Monoferric * Treatment/Therapy Plan Authorization (Routine) - Pending Review Specialty Diagnoses / Procedures Referred By Contac t Referred To Contact Hematology and Oncology Diagnoses Iron deficiency anemia due to chronic blood loss Procedures Ferric Derisomaltose (Monoferric) Infusion ([facility], CASIMIRO, TANISHA, [facility], [facility], [facility]) Iron Deficiency Anemia Ashok Hernandez MD [facility] [address] [place] [address] Stj Hem Onc Infusion [address] [place] [id number] Referral ID Status Reason Start Date Expiration Date V isits Requested Visits Authorized [id number] Pending Review 12/16/2022 12/16/2023 99 99 Encounter Details Date Type Department Care Team (Late st Contact Info) Description 12/16/2022 10:30 AM EST Infusion Hematology Oncology at [address] [address] Iron deficiency anemia due to chronic blood loss Social History Tobacco Use Types Packs/Day Years [...] as of this encounter Progress Notes * Joselito Ross RN - 12/16/2022 10:30 AM EST INFUSION THERAPY ADMINISTRATION NOTES DIAGNOSIS: Iron Deficiency REASON FOR VISIT: Monoferric SUBJECTIVE Malu Arias Sanitno offers no complaints. OBJECTIVE LAB DATA: WNL Pre administration: Chemotherapy orders independently verified for drug name, route, and dosage per patient's height, weight and BSA by JOSELITO ROSS, MARC and onsite pharmacist. REACTIONS (DESCRIPTION, TIME, INTERVENTION AND EFFECTIVENESS) none ASSESSMENT Malu De was awake, alert and tolerated treatment well. Requested zofran as premed- 4mg given PO. Patient remained in clinic for 30 min post infusion to monitor for reactions. PLAN Return to clinic as scheduled. documented in this encounter Plan of Treatment Not on file documented as of this encounter Goals Goal Patient Goal Type Associated Problems Recent Progress Patient-Stated? Author [facility] Home Medication Compliance and Understanding Patient Facing Action Plan Yes Rekha Coburn, [facility] Note: Reduction in use of SMILEY to 1-2 nebulizer treatments per day. Measured by: Patient report Time frame: 6 months documented as of this encounter Visit Diagnoses Diagnosis Iron deficiency anemia due to chronic blood loss Iron deficiency anemia secondary to blood loss (chronic) documented in this encounter Administered Medications Inactive Administered Medications - up to 3 most recent administrations Medication Order MAR Action Action Date Dose Rate Site ferric derisomaltose (Monoferric) 1,000 mg in sodium chloride 0.9% 110 mL infusion 1,000 mg, Intravenous, ONCE, 1 dose, On Rachel 12/16/22 at 1130, Administer over 20 Minutes, Administer over at least 20 minutes. Monitor for 30 minutes after infusion for hypersensitivity reactions. Compatible only in sodium chloride 0.9%, This agent is restricted to oupatient use. Is this drug being given as an outpatient? Yes New Bag 12/16/2022 11:49 AM EST 1,000 mg 330 mL/hr ondansetron (Zofran) tablet 4 mg 4 mg, Oral, ONCE, 1 dose, On Rachel 12/16/22 at 1130, Routine Given 12/16/2022 11:31 AM EST 4 mg documented in this encounter Care Teams Hand Welt Butter Relationship Specialty Start Date End Date Brandee Fuchs APRN PCP - General Family Medicine 01/17/19 documented as of this encounter
--- OUTSIDE RECORDS SUMMARY | 2024-05-14 03:35 | XMS_ITS | Encounter Summary ---
Author [place] [address] Care Team Providers Care Bench Precision Assembler Name Role Phone Daniellino Brandee Steiner APRN Primary Care Provider [phone] Encounter Details Date Type Department Care Team (Late st Contact Info) Description 04/20/2022 Telephone [place] [phone] Elva Howard Social History Tobacco Use Types Packs/Day Years [...] encounter Miscellaneous Notes * Telephone Encounter - Elva Howard - 04/20/2022 2:39 PM EDT lm to [facility] appt documented in this encounter Plan of Treatment Not on file documented as of this encounter Goals Goal Patient Goal Type Associated Problems Recent Progress Patient-Stated? Author Home Medication Compliance and Understanding Patient Facing Action Plan Yes Rekha Coburn, [facility] Note: Reduction in use of SMILEY to 1-2 nebulizer treatments per day. Measured by: Patient report Time frame: 6 months documented as of this encounter Visit Diagnoses Not on filedocumented in this encounter Care Teams Bench Precision Assembler Relationship Specialty Start Date End Date Brandee Fuchs APRN PCP - General Family Medicine 01/17/19 documented as of this encounter
--- OUTSIDE RECORDS SUMMARY | 2024-05-14 03:35 | XMS_ITS | Encounter Summary ---
Author Organization [facility] [place] [address] Care Team Providers Care Children'S Service Worker Name Role Phone Brandee Fuchs APRN Primary Care Provider [phone] Encounter Details Date Type Department Care Team (Late st Contact Info) Description 05/28/2021 Specialty [place] [address] Robina Stanford [facility] Social History Tobacco Use Types [...] Progress Notes * Robina Apple RPH - 05/28/2021 10:53 AM EDT Updated patient's medication list to reflect currently taking Fasenra. Robina Apple RPH 05/28/2021 10:55 AM documented in this encounter Plan of Treatment Not on file documented as of this encounter Goals Goal Patient Goal Type Associated Problems Recent Progress Patient-Stated? Author [facility] Medication Compliance and Understanding Patient Facing Action Plan Yes Rekha Coburn [facility] Note: Reduction in use of SMILEY to 1-2 nebulizer treatments per day. Measured by: Patient report Time frame: 6 months documented as of this encounter Visit Diagnoses Not on filedocumented in this encounter Care Teams Children'S Service Worker Relationship Specialty Start Date End Date Brandee Fuchs APRN PCP - General Family Medicine 01/17/19 documented as of this encounter
--- OUTSIDE RECORDS SUMMARY | 2024-05-14 03:35 | XMS_ITS | Encounter Summary ---
[place] [address] Care Team Providers Care Electronic Train Control Technician Name Role Phone Daniellino Brandee Steiner APRN Primary Care Provider Reason for Visit * Reason Comments Medication Refill Encounter Details Date Type Department Care Team (Late st Contact Info) Description 06/25/2021 Specialty Pharmacy [place] [address] Robina Regan [facility] Social History Tobacco Use Types [...] this encounter Progress Notes * Robina Regan Bryce - 06/25/2021 3:31 PM EDT Clinical Management Plan: Refill Specialty Pharmacy Consultation; Robina Regan Bryce Comprehensive Medication Management (CMM) Malu Arias Santino Ms. Malu De is a 45 y.o. (1975) female who was contacted in regard to a specialty medication refill reminder. Contact made with patient regarding Fasenra. A review of the medication therapy was performed. The medication was refilled as scheduled, and all medication related questions andconcerns were addressed. The specialty pharmacy staff will follow up with the patient 5-7 days prior to next refill. Was a change made to the Care Plan: No Allergies and Drug intolerance: Allergies Allergen Reactions ??? Savella [Milnacipran] Other (See Comments) Nerve temors ??? Dupixent Pen [Dupilumab] Rash Rash intermittently on extremities. ??? Acetaminophen Mouth blisters ??? Amitriptyline Anxiety ??? Celebrex [Celecoxib] Nausea and palpitations ??? Cyclobenzaprine Other (See Comments) Small blisters ??? Cymbalta [Duloxetine] Anxiety ??? Dulera [Mometasone-Formoterol] Other (See Comments) Mental alterations ??? Gabapentin Other (See Comments) [place] like body was shaking, nerves vibrating, hands went numb ??? Indomethacin ??? Tramadol Other (See Comments) Anxiety, foggy head, unaware ??? Vicodin [Hydrocodone-Acetaminophen] Mouth blisters Medication Reconciliation Discrepancies (compared to [facility] med list) No Specialty Pharmacy Refill Questionnaire Refill Questionnaire 06/25/2021 What is the name of the specialty medication you are refilling? Fasenra Are you taking any new medications? No Any new medical condition? Yes Please explain (No Data) Any new allergies? No Any new side effects that are bothersome? No What date will you need this fill by? 06/30/2021 Adherence: Any missed doses? No Patient understands no changes to current drug regimen were made. Robina Regan RPH 06/25/21 3:34 PM documented in this encounter Plan of [...] on filedocumented in this encounter Care Teams Electronic Train Control Technician Relationship Specialty Start Date End Date Brandee Fuchs APRN PCP - General Family Medicine 01/17/19 documented as of this encounter
--- OUTSIDE RECORDS SUMMARY | 2024-05-14 03:35 | XMS_ITS | Encounter Summary ---
[place] [address] Care Team Providers Care Supervisor Hanging And Trimming Name Role Phone Brandee Fuchs APRN Primary Care Provider [phone] Reason for Visit * Reason Comments Specialty Pharmacy Review Medication Management Encounter Details Date Type Department Care Team (Late st Contact Info) Description 06/29/2021 Specialty [place] [address] Robina Regan [facility] Social History Tobacco Use Types Packs/Day Years [...] Progress Notes * Robina Regan RPH - 06/29/2021 1:29 PM EDT Opened in error documented in this encounter Plan of Treatment Not on file documented as of this encounter Goals Goal Patient Goal Type Associated Problems Recent Progress Patient-Stated? Author [facility] Medication Compliance and Understanding Patient Facing Action Plan Yes Rekha Coburn RP Note: Reduction in use of SMILEY to 1-2 nebulizer treatments per day. Measured by: Patient report Time frame: 6 months documented as of this encounter Visit Diagnoses Not on filedocumented in this encounter Care Teams Supervisor Hanging And Trimming Relationship Specialty Start Date End Date Brandee Fuchs APRN PCP - General Family Medicine 01/17/19 documented as of this encounter
--- OUTSIDE RECORDS SUMMARY | 2024-05-14 03:35 | XMS_ITS | Encounter Summary ---
Author Organization [facility] Address [facility] [place] [address] Care Team Providers Care Corporate Bond Trader Name Role Phone Brandee Fuchs APRN Primary Care Provider [phone] Reason for Visit * Consultation (Routine) - Closed Specialty Diagnoses / Procedures Referred By Adryan marin Referred To Contact Hematology and Oncology Diagnoses Anemia Zena Hughes MD [address] [place] [address] St Hem Onc Office [address] [place] [phone] Referral ID Status Reason Start Date Expiration Date Visits Re quested Visits Authorized [id number] Closed 12/13/2022 12/13/2023 1 1 Encounter Details Date Type Department Care Team (Late st Contact Info) Description 12/16/2022 10:00 AM EST Office Visit Hematology/Oncology at [address] [address] Ashok Hernandez MD [facility] [address] [place] [address] Mia Fong APRN [facility] [place] [address] Iron deficiency anemia, unspecified iron deficiency anemia type Social History Tobacco Use Types Packs/Day Years [...] 18 12/16/2022 10:06 AM EST Oxygen Saturation - - Inhaled Oxygen Concentration - - Weight 86.2 kg (190 lb) 12/16/2022 10:06 AM EST Height 152.6 cm (5' 0.08) 12/16/2022 10:[address] Body Mass Index 37.01 12/16/2022 10:06 AM EST documented in this encounter Progress Notes * Ashok Hernandez MD - 12/16/2022 10:00 AM EST The patient is a 47-year-old female who was referred back to the hematology clinic in [facility] by her primary care doctor for because of recurrent iron deficiency. She has not required intermittent intravenous iron but sometimes has a reaction to the iron. We last treated her with a Venna for about 3 years ago. She has done well until recent labs showed her ferritin was back to 9. She wasnot yet anemic. She feels okay. She does feel tired but she has lots of other health issues. She has not seen any significant bleeding. She is still having menstrual periods she is intolerant of any oral iron. Past Medical History: Diagnosis Date ??? Asthma [...] file Occupational History ??? Not on file Tobacco Use ??? Smoking status: Former Packs/day: 0.50 Years: 11.00 Pack years: 5.50 Types: Cigarettes Quit date: 01/04/2003 Years since quittin.9 ??? Smokeless tobacco: Never Vaping Use ??? Vaping Use: Never used Substance and Sexual Activity ??? Alcohol use: No ??? Drug use: No ??? Sexual activity: Not on file Other Topics Concern ??? Not on file Social History Narrative ??? Not on file Social Determinants of Health Financial Resource Strain: Not on file Food Insecurity: Not on file Transportation Needs: Not on file Physical Activity: Not on file Housing Stability: Not on file Allergies: Allergies Allergen Reactions ??? Fasenra [Benralizumab] Hives and Shortness Of Breath ??? Savella [Milnacipran] Other (See Comments) Nerve temors ??? Dupixent Pen [Dupilumab] Rash Rash intermittently on extremities. ??? Acetaminophen Mouth blisters ??? Amitriptyline Anxiety ??? Celebrex [Celecoxib] Nausea and palpitations ??? Cyclobenzaprine Other (See Comments) Small blisters ??? Cymbalta [Duloxetine] Anxiety ??? Dulera [Mometasone-Formoterol] Other (See Comments) Mental alterations ??? Gabapentin Other (See Comments) [place] like body was shaking, nerves vibrating, hands went numb ??? Indomethacin ??? Tramadol Other (See Comments) Anxiety, foggy head, unaware ??? Vicodin [Hydrocodone-Acetaminophen] Mouth blisters Medications: Current Outpatient Medications Medication Sig Dispense Refill ??? pravastatin (Pravachol) 10 mg Tablet Take 10 mg by mouth daily. ??? levothyroxine (Synthroid) 75 mcg Tablet Take 75 mcg by mouth daily. ??? naproxen (NAPROSYN) 500 mg Tablet Take 500 mg by mouth 2 times daily (with meals). ??? metFORMIN (Glucophage) 500 mg Tablet Take 1,000 mg by mouth 2 times daily (with meals). ??? Cetirizine (ZyrTEC) 10 mg Capsule Take 10 mg by mouth daily. ??? cholecalciferol, Vitamin D3, 1,000 unit Capsule Take 2,000 Units by mouth daily. ??? ondansetron (ZOFRAN) [...] (NASACORT OR NASACORT OTC) 55 mcg Aerosol, Dahinda 2 sprays by Nasal route daily. ??? Fasenra Pen 30 mg/mL Auto-Injector Inject 30 mg subcutaneously Every 8 Weeks. (Patient not taking: Reported on 12/16/2022) 1 mL 3 ??? dexamethasone (Decadron) 4 mg Tablet Take 1 tablet by mouth daily. Take one tablet daily X3 days following Iron infusion. (Patient not taking: Reported on 06/29/2021) 9 tablet 0 ??? dexamethasone (Decadron) 4 mg Tablet Take 1 tablet by mouth daily. Take daily x 3 days after each iron infusion (Patient not taking: Reported on 06/29/2021) 6 tablet 0 No current facility-administered medications for this [...] Exam BP 110/69 (Patient Position: Sitting) Pulse 70 Temp 36.8 ??C (98.3 ??F) (Temporal) Resp 18 Ht 152.6 cm (5' 0.08) Wt 86.2 kg (190 lb) BMI 37.01 kg/m?? General Appearance: Alert, cooperative, no distress, appears stated age Head: Normocephalic, without obvious abnormality, atraumatic Eyes: PERRL, conjunctiva/corneas clear, Abdomen: Soft, non-tender, bowel sounds active all four quadrants, no masses, no organomegaly Extremities: no edema Skin: no rashes Neurologic: Normal Labs from 11/30/2022 White count 6.5, hemoglobin 12.9, platelets 383 Ferritin 7 Assessment and Plan Malu De is a 47 y.o. female with iron deficiency anemia. She had clear iron deficiency a couple years ago which completely resolved with intravenous iron. Again she is iron deficient. She has not yet developed anemia but I suspect that will happen if we do not replace her iron. She is intolerant to oral iron so I think we have to use IV iron again. I did recommend Monoferric this time. This will allow her to give all 1000 mg in a single infusion.She is going to do that. It seems like her iron losses are not very extensive since she can go about 3 years between any infusions. I suspect that once she reaches menopause her iron losses will cease completely. I think she can be followed by her primary doctor without routine visits in the hematology clinic. We are happy to see her back if she redevelops iron deficiency in the future. documented in this encounter [...] Procedure Name Priority Date/Time Associated Diagnosis Comments CBC (WITH DIFF) Routine 11/30/2022 COMPREHENSIVE METABOLIC PANEL Routine 11/30/2022 CBC (WITH DIFF) Routine 05/03/2022 documented in this encounter Results * Comprehensive metabolic panel (non-fasting) (11/30/2022) Iron 39 Comment:Low Ferritin 7 Comment:Low Blood 11/30/2022 Historical Provider CHEMISTRY ORDERAB LES * CBC (with Diff) (11/30/2022) Pathologist [facility] White Blood Cell 6.54 Red Blood Cell 4.99 Hemoglobin 12.9 Hematocrit 42.5 Platelet 383 Blood 11/30/2022 Historical Provider HEMATOLOGY ORDERA BLES * (ABNORMAL) CBC (with Diff) (05/03/2022) White Blood Cell 9.66 Red Blood Cell 5.27(H) Hemoglobin 14.4 Hematocrit 45.0 Platelet 328 Blood 05/03/2022 Historical Provider HEMATOLOGY ORDERA BLES documented in this encounter Visit Diagnoses Diagnosis Iron deficiency anemia, unspecified iron deficiency anemia type documented in this encounter Care Teams Corporate Bond Trader Relationship Specialty Start Date End Date Brandee Fuchs APRN PCP - General Family Medicine 01/17/19 documented as of this encounter
--- OUTSIDE RECORDS SUMMARY | 2024-05-14 03:35 | XMS_ITS | Encounter Summary ---
Author Organization [facility] Address [facility] [place] [address] Care Team Providers Care Chief Librarian Extension Department Name Role Phone DanielBrandee huynh Obdulia GAMBLE Primary Care Provider [phone] Reason for Visit * Reason Comments Medication Refill Encounter Details Date Type Department Care Team (Late st Contact Info) Description 06/12/2021 [place] [address] Nuha Dubon MD [facility] [place] [address] Social History Tobacco Use Types Packs/Day Years [...] Patient Facing Action Plan Yes Rekha Coburn, [facility] Note: Reduction in use of SMILEY to 1-2 nebulizer treatments per day. Measured by: Patient report Time frame: 6 months documented as of this encounter Visit Diagnoses Not on filedocumented in this encounter Care Teams Chief Librarian Extension Department Relationship Specialty Start Date End Date Brandee Fuchs APRN PCP - General Family Medicine 01/17/19 documented as of this encounter
--- OUTSIDE RECORDS SUMMARY | 2024-05-14 03:35 | XMS_ITS | Encounter Summary ---
[place] [address] Care Team Providers Care Side Seam Machine Operator Name Role Phone Daniellino Brandee Steiner APRN Primary Care Provider [phone] Encounter Details Date Type Department Care Team (Late st Contact Info) Description 04/26/2022 [place] [phone] Elva Howard Social History Tobacco Use Types [...] * Telephone Encounter - Elva Howard - 04/26/2022 4:38 PM EDT tried to resched her appt.w/west called a number of times.sent letter documented in this encounter Plan of Treatment Not on file documented as of this encounter Goals Goal Patient Goal Type Associated Problems Recent Progress Patient-Stated? Author [facility] Medication Compliance and Understanding Patient Facing Action Plan Yes Rekha Coburn, [facility] Note: Reduction in use of SMILEY to 1-2 nebulizer treatments per day. Measured by: Patient report Time frame: 6 months documented as of this encounter Visit Diagnoses Not on filedocumented in this encounter Care Teams Side Seam Machine Operator Relationship Specialty Start Date End Date Brandee Fuchs APRN PCP - General Family Medicine 01/17/19 documented as of this encounter
--- OUTSIDE RECORDS SUMMARY | 2024-05-14 03:35 | XMS_ITS | Encounter Summary ---
[place] [address] Care Team Providers Care Project Scientist Name Role Phone Brandee Fuchs APRN Primary Care Provider [phone] Encounter Details Date Type Department Care Team (Late st Contact Info) Description 09/02/2021 Telephone [place] [phone] Jodi Nieves Social History Tobacco Use Types [...] Associated Problems Recent Progress Patient-Stated? Author [facility] Medication Compliance and Understanding Patient Facing Action Plan Yes Rekha Coburn, [facility] Note: Reduction in use of SMILEY to 1-2 nebulizer treatments per day. Measured by: Patient report Time frame: 6 months documented as of this encounter Visit Diagnoses Not on filedocumented in this encounter Care Teams Project Scientist Relationship Specialty Start Date End Date Brandee Fuchs APRN PCP - General Family Medicine 01/17/19 documented as of this encounter
--- OUTSIDE RECORDS SUMMARY | 2024-05-14 03:35 | XMS_ITS | Encounter Summary ---
[place] [address] Care Team Providers Care Cabin Agent Name Role Phone DanielBrandee huynh Obdulia GAMBLE Primary Care Provider Reason for Visit * Reason Comments Specialty Pharmacy Review Encounter Details Date Type Department Care Team (Late st Contact Info) Description 04/19/2022 Specialty Pharmacy [place] [address] Isabella Price, [facility] Social History Tobacco Use Types Packs/Day [...] of this encounter Progress Notes * Isabella Price - 04/19/2022 8:11 AM EDT The [facility] has completed a benefits investigation for Malu De to review their eligibility to fill at [facility]. Per patient's medication list they are prescribed Fasenra and the medication is able to be filled at the [facility]. However, Malu has been un- [...] on filedocumented in this encounter Care Teams Cabin Agent Relationship Specialty Start Date End Date Brandee Fuchs APRN PCP - General Family Medicine 01/17/19 documented as of this encounter
--- OUTSIDE RECORDS SUMMARY | 2024-05-14 03:35 | XMS_ITS | Encounter Summary ---
[place] [address] Care Team Providers Care Helper Marble Finisher Name Role Phone Brandee Fuchs APRN Primary Care Provider [phone] Encounter Details Date Type Department Care Team (Late st Contact Info) Description 01/13/2022 Telephone [place] [phone] Elva Howard Social History Tobacco Use Types [...] Type Associated Problems Recent Progress Patient-Stated? Author [facility] Medication Compliance and Understanding Patient Facing Action Plan Yes Rekha Coburn, [facility] Note: Reduction in use of SMILEY to 1-2 nebulizer treatments per day. Measured by: Patient report Time frame: 6 months documented as of this encounter Visit Diagnoses Not on filedocumented in this encounter Care Teams Helper Marble Finisher Relationship Specialty Start Date End Date Brandee Fuchs APRN PCP - General Family Medicine 01/17/19 documented as of this encounter
--- OUTSIDE RECORDS SUMMARY | 2024-05-14 03:35 | XMS_ITS | Encounter Summary ---
[place] [address] Care Team Providers Care Bias Machine Operator Name Role Phone Brandee Fuchs APRN Primary Care Provider [phone] Encounter Details Date Type Department Care Team (Late st Contact Info) Description 01/14/2022 [place] [phone] Jodi Nieves Social History Tobacco Use Types [...] Type Associated Problems Recent Progress Patient-Stated? Author [facility] Medication Compliance and Understanding Patient Facing Action Plan Yes Rekha Coburn, [facility] Note: Reduction in use of SMILEY to 1-2 nebulizer treatments per day. Measured by: Patient report Time frame: 6 months documented as of this encounter Visit Diagnoses Not on filedocumented in this encounter Care Teams Bias Machine Operator Relationship Specialty Start Date End Date Brandee Fuchs APRN PCP - General Family Medicine 01/17/19 documented as of this encounter
--- OUTSIDE RECORDS SUMMARY | 2024-05-14 03:35 | XMS_ITS | Encounter Summary ---
[place] [address] Care Team Providers Care Senior Ui Developer Name Role Phone Brandee Fuchs APRN Primary Care Provider [phone] Encounter Details Date Type Department Care Team (Late st Contact Info) Description 04/21/2022 Telephone [place] [phone] Jodi Nieves Social History Tobacco Use Types [...] Type Associated Problems Recent Progress Patient-Stated? Author [facility] Medication Compliance and Understanding Patient Facing Action Plan Yes Rekha Coburn, [facility] Note: Reduction in use of SMILEY to 1-2 nebulizer treatments per day. Measured by: Patient report Time frame: 6 months documented as of this encounter Visit Diagnoses Not on filedocumented in this encounter Care Teams Senior Ui Developer Relationship Specialty Start Date End Date Brandee Fuchs APRN PCP - General Family Medicine 01/17/19 documented as of this encounter
--- OUTSIDE RECORDS SUMMARY | 2024-05-14 03:36 | XMS_ITS | Encounter Summary ---
[place] [address] Care Team Providers Care Banking Services Advisor Name Role Phone DanielBrandee huynh Obdulia GAMBLE Primary Care Provider Reason for Visit * Reason Onset Date Comments Prior Authorization 10/06/2020 Naltrexone 1 .5 mg compounded Encounter Details Date Type Department Care Team (Late st Contact Info) Description 10/06/2020 Telephone [place] [phone] Luma Owen LNA Prior Authorization (Naltrexone 1.5 mg compounded) Social History Tobacco Use Types Packs/Day Years [...] encounter Miscellaneous Notes * Telephone Encounter - Rosalinda Dorantes CCMA - 10/07/2020 2:01 PM EST Medication Prior Authorization for Primary Care Approved: naltroxen Start Date: 10/07/2020 End Date: 04/07/2021 Case/Reference #: See Approval Letter in scanned documents. Additional Notes: * Telephone Encounter - Lay Reaves CCMA - 10/07/2020 1:03 PM EST Updated information for Naltrexone and re-faxed it to insurance via [facility] Moreno# [id number]. Information included:She failed physical therapy and TENS unit made things worse * Telephone Encounter - Lay Reaves CCMA - 10/07/2020 11:27 AM EST PA being deferred. Rx must be written by or in consultation with a metal painter AND patient must have tried and failed at least 3 preferred pharmacologic agents and 1 non-pharmacologic therapy (eg, PT, Neurostimulation) If information is not available or not received within 14 days PA will be denied. * Telephone Encounter - Luma Owen LNA - 10/06/2020 1:54 PM EST Medication Prior Authorization for Primary [place] [address] Request received via: Neema Patient: Malu De Patient : 1975 Insurance Company: [place]ICAID [place] Sent via: [employer] Phone: Moreno: [id number] Physician: Berkley Hernández APRN Medication Requested:Naltrexone 1.5 mg Frequency/Sig: Take by mouth Naltrexone 1.5 mg for 1 wk. If necessary and tolerated, increase by 1.5mg every wk upto a max dose of 4.5mg daily. ?? Disp: 90 each Refills: 1 Currently taking: no Diagnosis for this medication: Fibromyalgia ICD-10 code: M79.7 Prior medications trialed in this patient: Prior meds that were ineffective of not tolerated: cyclobenzaprine, elavil, cymbalta, indomethacin,tramadol, gabapentin, savella Adjacent Treatments: Could not afford the MMJ, as discussed at last visit. Increase turmeric to 500mg bid. Additional Notes: [facility] [place], [place] - [address] [facility] allergic rxn to dupixent, Acetaminophen, Amitriptyline,Cyclobenzaprine, Cymbalta [Duloxetine], Dulera [Mometasone-formoterol] Gabapentin, Indomethacin, Tramadol, Vicodin [Hydrocodone-acetaminophen] documented in this encounter Plan of Treatment Not on file documented as of this encounter Goals Goal Patient Goal Type Associated Problems Recent Progress Patient-Stated? Author [facility] Medication Compliance and Understanding Patient Facing Action Plan Yes Rekha Coburn, [facility] Note: Reduction in use of SMILEY to 1-2 nebulizer treatments per day. Measured by: Patient report Time frame: 6 months documented as of this encounter Visit Diagnoses Not on filedocumented in this encounter Care Teams Banking Services Advisor Relationship Specialty Start Date End Date Brandee Fuchs APRN PCP - General Family Medicine 01/17/19 documented as of this encounter
--- OUTSIDE RECORDS SUMMARY | 2024-05-14 03:36 | XMS_ITS | Encounter Summary ---
Author Organization [facility] [place] [address] Care Team Providers Care Halal Butcher Name Role Phone Brandee Fuchs APRN Primary Care Provider [phone] Encounter Details Date Type Department Care Team (Late st Contact Info) Description 03/16/2021 Orders [place] [address] Berkley Hernández ENTRY LEVEL WEB DEVELOPER [facility] [place] [address] Social History Tobacco Use Types Packs/Day Years [...] Type Associated Problems Recent Progress Patient-Stated? Author [facility] Medication Compliance and Understanding Patient Facing Action Plan Yes Rekha Coburn, [facility] Note: Reduction in use of SMILEY to 1-2 nebulizer treatments per day. Measured by: Patient report Time frame: 6 months documented as of this encounter Visit Diagnoses Not on filedocumented in this encounter Care Teams Halal Butcher Relationship Specialty Start Date End Date Brandee Fuchs APRN PCP - General Family Medicine 01/17/19 documented as of this encounter
--- OUTSIDE RECORDS SUMMARY | 2024-05-14 03:36 | XMS_ITS | Encounter Summary ---
[place] [address] Care Team Providers Care Snaker Tractor Driver Name Role Phone Brandee Fuchs APRN Primary Care Provider [phone] Encounter Details Date Type Department Care Team (Late st Contact Info) Description 03/26/2021 Telephone [place] [phone] Rosie Rosas Social History Tobacco Use Types Packs/Day Years [...] encounter Miscellaneous Notes * Telephone Encounter - Rosie Rosas - 03/26/2021 [...] Facing Action Plan Yes Rekha Coburn, [facility] Note: Reduction in use of SMILEY to 1-2 nebulizer treatments per day. Measured by: Patient report Time frame: 6 months documented as of this encounter Visit Diagnoses Not on filedocumented in this encounter Care Teams Snaker Tractor Driver Relationship Specialty Start Date End Date Brandee Fuchs, MAVIS PCP - General Family Medicine 01/17/19 documented as of this encounter
--- OUTSIDE RECORDS SUMMARY | 2024-05-14 03:36 | XMS_ITS | Encounter Summary ---
[place] [address] Care Team Providers Care Tax Clerk Name Role Phone Brandee Fuchs APRN Primary Care Provider [phone] Encounter Details Date Type Department Care Team (Late st Contact Info) Description 03/25/2021 Telephone [place] [phone] Letha Diaz Social History Tobacco Use Types Packs/Day Years [...] Type Associated Problems Recent Progress Patient-Stated? Author [facility] Medication Compliance and Understanding Patient Facing Action Plan Yes Rekha Coburn, [facility] Note: Reduction in use of SMILEY to 1-2 nebulizer treatments per day. Measured by: Patient report Time frame: 6 months documented as of this encounter Visit Diagnoses Not on filedocumented in this encounter Care Teams Tax Clerk Relationship Specialty Start Date End Date Brandee Fuchs APRN PCP - General Family Medicine 01/17/19 documented as of this encounter
--- OUTSIDE RECORDS SUMMARY | 2024-05-14 03:36 | XMS_ITS | Encounter Summary ---
[place] [address] Care Team Providers Care Singer And Unloader Name Role Phone Daniellino Brandee Steiner APRN Primary Care Provider [phone] Encounter Details Date Type Department Care Team (Late st Contact Info) Description 09/09/2020 Telephone [place] [address] Jj Garay [facility] Social History Tobacco Use Types Packs/Day Years [...] encounter Miscellaneous Notes * Telephone Encounter - Jj Garay MA - 09/09/2020 3:44 PM EST 5C Ghost Writer Pre-Telemedicine Phone Note [x] Patient not reached [] Patient reached and the following information was reviewed/obtained per protocol: [] Confirmed patient name and date of [] Confirmed location of patient - TeleVisit is taking place in [] [place] [] [place] [] [place] [] [place] [] Confirmed Pt has MyDH [] Confirmed Pt has download ZOOM [] If not on myDH, working on signing up for myDH [] If no MyDH is made, how is sending Pt the zoom link for video [] By Cell phone [] By E-mail [] Phone visit/ how is Dr contacting Pt if disconcert from MyDH [] Home phone [] Cell phone [] Other number [] Reviewed patient medications [] Documented self-reported vitals: [] Weight: [] Height: [] Other information or concerns documented in [...] on filedocumented in this encounter Care Teams Singer And Unloader Relationship Specialty Start Date End Date Brandee Fuchs APRN PCP - General Family Medicine 01/17/19 documented as of this encounter
--- OUTSIDE RECORDS SUMMARY | 2024-05-14 03:36 | XMS_ITS | Encounter Summary ---
[place] [address] Care Team Providers Care Varitypist Name Role Phone DanielBrandee huynh Obdulia GAMBLE Primary Care Provider Reason for Visit * Reason Comments Medication Management Medication Refill Encounter Details Date Type Department Care Team (Late st Contact Info) Description 01/28/2021 Specialty [place] [address] Silver Mccarty RPH Social History Tobacco Use Types Packs/Day Years [...] as of this encounter Progress Notes * Silver Mccarty RPH - 01/28/2021 4:50 PM EDT Specialty Pharmacy Consultation; Silver Mccarty RPH Comprehensive Medication Management (CMM): Specialty Consult, Opt Out Malu Juana Santino Diagnosis: Asthma Therapy Start Date: TBD - Patient has to make appointment at local MD/PCP office ~02/02/21 Contact in person or via telephone: Telephone Ms. Malu De is a 45 y.o. (1975) female who was contacted in regard to specialty medication. Spoke with patient regarding Fasenra. A review of the medication therapy was performed. The medication was filled as scheduled, and all medication related questions and concerns were addressed. The specialty pharmacy staff will follow up with the patient 5-7 days prior to next refill. Is the patient willing to proceed with the Clinical Assessment? No Summary and Recommendations: Malu De was contacted for a new start consultation on Fasenra. Patient opted out of the consult because she stated she has already discussed the medication and had her questions answered withKevin romano last week and has spoken with her MD as well. She noted she will not be injecting the medication herself at home due to not being comfortable with self- administration. She will be bringing the medication to her local MD/PCP office to receive injections there. Patient will contact Specialty Pharmacy and has contact information in case she has any other questions or concerns. Economic Assessment: Patient is agreeable to medication copay: Yes Copay Amount: $3.00 Day Supply: 28 Date Needed: ~02/02/2021 Therapy Assessment: Appropriate Therapy: Yes Current Medication Dosing/Route/Frequency: Fasenra 30mg/ml soaj - inject 30mg SQ every 28 days for 3 doses then inject 30mg SQ every 56 days Additional equipment/supplies required: no Care Plan Reviewed and Approved by Pharmacist : Yes Problem List: Patient Active Problem List Diagnosis Code ??? Asthma J45.909 ??? Fatigue R53.83 ??? Fibromyalgia M79.7 Medications Reviewed: Yes Medications reconciled: No Allergies Reviewed:Yes Allergies reconciled: No Pharmacist follow-up needed: No Informed patient of specialty pharmacy services: Yes -Patient will be provided with welcome packet: Yes Date to be provided: 04/14/2020 Delivery Method: Mail -Patient returned signed Rights & Responsibilities: Yes Date to be provided: 04/14/2020 Delivery Method: Mail -Patient is aware a licensed pharmacist is available 24 hours a day, 7 days a week to discuss medication-related questions or concerns: Yes -Patient verbalizes understanding of the common side effect profile of their medication. The patient is able to call 911 or seek urgent care if signs/symptoms of allergy or harmful adverse reactions occur: Yes Patient understands no changes to current drug regimen were made at the appointment and that the pharmacist is providing recommendations (summary located at top of note) for provider review and follow up. Silver Mccarty RPH 01/28/21 4:51 PM documented in this encounter Plan of [...] on filedocumented in this encounter Care Teams Varitypist Relationship Specialty Start Date End Date Brandee Fuchs APRN PCP - General Family Medicine 01/17/19 documented as of this encounter
--- OUTSIDE RECORDS SUMMARY | 2024-05-14 03:36 | XMS_ITS | Encounter Summary ---
[place] [address] Care Team Providers Care Slurry Plant Operator Name Role Phone DaniellinoBrandee APRN Primary Care Provider [phone] Reason for Visit * Reason Comments Specialty Pharmacy Review Encounter Details Date Type Department Care Team (Late st Contact Info) Description 08/06/2020 Specialty [place] [address] Isabella Price, [facility] Social History Tobacco Use Types Packs/Day [...] encounter Progress Notes * Isabella Chairez - 08/06/2020 11:59 PM EDT The [facility] has completed a benefits investigation for Malu De to review their eligibility to fill at [facility]. Per patient's medication list they are prescribed Fasenra and the medication is able to be filled at the [facility]. documented in this encounter Plan [...] on filedocumented in this encounter Care Teams Slurry Plant Operator Relationship Specialty Start Date End Date Brandee Fuchs, MAVIS PCP - General Family Medicine 01/17/19 documented as of this encounter
--- OUTSIDE RECORDS SUMMARY | 2024-05-14 03:36 | XMS_ITS | Encounter Summary ---
[place] [address] Care Team Providers Care Ems Driver Name Role Phone Brandee Fuchs Obdulia GAMBLE Primary Care Provider [phone] Reason for Visit * Reason Comments Prior Authorization Fasenra 30 mg pen Encounter Details Date Type Department Care Team (Late st Contact Info) Description 01/19/2021 Specialty [place] [address] Tracy Huang, AUTOMOTIVE GENERAL SALES MANAGER Social History Tobacco Use Types Packs/Day Years [...] encounter Progress Notes * Tracy Huang - 01/19/2021 3:59 PM EDTSummary: fasenra prior auth submission [facility], Medication Prior Authorization Patient: Malu De Patient : 1975 Patient Address: [address] [place] [phone] (home) Medication Name: FASENRA PEN 30 MG/ML SUBCUTANEOUS AUTO-INJECTOR Medication ID: [id number] Patient Location: [facility] Patient Location Comment: Subscriber Insurance: [...] via fax Tracy Huang 01/19/21 4:03 PM * Tracy Huang - 01/19/2021 3:59 PM EDTSummary: Aldo FONSECA approval [facility], Prior Authorization Approval Medication Name: FASENRA PEN 30 MG/ML SUBCUTANEOUS AUTO-INJECTOR Medication ID: [id number] Approval Dates: 01/20/2021 to 04/21/2021 Insurance requirements/notes: Can fill at pharmacy Other Notes: None Case/Reference #: [id number] Approval notification Received via: Fax Copay: $3.00 Copay assistance: None Copay Notes: Co-pay is affordable Insurance mandated Pharmacy: D Pharmacy Fillable at [facility]: Yes Pharmacy staff will be reaching out to the patient to inform them of their [facility]. If applicable, a pharmacist will speak [...] on filedocumented in this encounter Care Teams Ems Driver Relationship Specialty Start Date End Date Brandee Fuchs APRN PCP - General Family Medicine 01/17/19 documented as of this encounter
--- OUTSIDE RECORDS SUMMARY | 2024-05-14 03:36 | XMS_ITS | Encounter Summary ---
[place] [address] Care Team Providers Care Office Clin Asst Name Role Phone Daniellino Brandee Steiner APRN Primary Care Provider [phone] Reason for Visit * Reason Comments Specialty Pharmacy Review Encounter Details Date Type Department Care Team (Late st Contact Info) Description 06/25/2020 Specialty [place] [address] Isabella Price, [facility] Social History Tobacco Use Types Packs/Day [...] encounter Progress Notes * Isabella Chairez - 06/25/2020 11:59 PM EDT The [facility] has completed a benefits investigation for Malu De to review their eligibility to fill at [facility]. Per patient's medication list they are prescribed Fasenra and Fasenra is able to be filled at the [facility]. documented in this encounter Plan [...] on filedocumented in this encounter Care Teams Office Clin Asst Relationship Specialty Start Date End Date Brandee Fuchs, MAVIS PCP - General Family Medicine 01/17/19 documented as of this encounter
--- OUTSIDE RECORDS SUMMARY | 2024-05-14 03:36 | XMS_ITS | Encounter Summary ---
Author Organization [facility] [place] [address] Care Team Providers Care Glove Finisher Name Role Phone Brandee Fuchs APRN Primary Care Provider [phone] Encounter Details Date Type Department Care Team (Late st Contact Info) Description 09/02/2020 Orders [place] [address] Berkley Hernández APRN [facility] [place] [address] Social History Tobacco Use Types Packs/Day Years [...] Type Associated Problems Recent Progress Patient-Stated? Author [facility] Medication Compliance and Understanding Patient Facing Action Plan Yes Rekha Coburn, [facility] Note: Reduction in use of SMILEY to 1-2 nebulizer treatments per day. Measured by: Patient report Time frame: 6 months documented as of this encounter Visit Diagnoses Not on filedocumented in this encounter Care Teams Glove Finisher Relationship Specialty Start Date End Date Brandee Fuchs, MAVIS PCP - General Family Medicine 01/17/19 documented as of this encounter
--- OUTSIDE RECORDS SUMMARY | 2024-05-14 03:36 | XMS_ITS | Encounter Summary ---
[place] [address] Care Team Providers Care Gang Saw Operator Name Role Phone DanielBrandee huynh Obdulia GAMBLE Primary Care Provider [phone] Reason for Visit * Reason Onset Date Comments Follow-up 04/09/2021 Encounter Details Date Type Department Care Team (Late st Contact Info) Description 04/09/2021 Telephone [place] [phone] rEica Garrison, RN Follow-up Social History Tobacco Use Types Packs/Day Years [...] encounter Miscellaneous Notes * Telephone Encounter - Erica Garrison RN - 04/09/2021 9:13 AM EDT Cristy from Legal office calls to ask for Berkley Hernández NP to fill out Disability Forms for Malu, states this is an urgent matter due to court date coming up soon. Called and spoke with Service Vehicle Operator office and advised there was no mention [...] out to Pulmonology if needed. No documentation releasedfrom Rheumatology at this time. Will notify her new provider of this call. documented in this encounter Plan of Treatment Not on file documented as of this encounter Goals Goal Patient Goal Type Associated Problems Recent Progress Patient-Stated? Author [facility] Medication Compliance and Understanding Patient Facing Action Plan Yes Rekha Coburn, [facility] Note: Reduction in use of SMILEY to 1-2 nebulizer treatments per day. Measured by: Patient report Time frame: 6 months documented as of this encounter Visit Diagnoses Not on filedocumented in this encounter Care Teams Gang Saw Operator Relationship Specialty Start Date End Date Brandee Fuchs, MASKING MACHINE FEEDER PCP - General Family Medicine 01/17/19 documented as of this encounter
--- OUTSIDE RECORDS SUMMARY | 2024-05-14 03:36 | XMS_ITS | Encounter Summary ---
Author Organization [facility] [place] [address] Care Team Providers Care Frame Operator Name Role Phone Brandee Fuchs APRN Primary Care Provider [phone] Encounter Details Date Type Department Care Team (Late st Contact Info) Description 06/17/2020 Orders Only Hematology/Oncology at [address] [phone] Basilia Vaughan APRN [address] [place] [address] [place] [address] Iron deficiency anemia, unspecified iron deficiency anemia [...] Patient Facing Action Plan Yes Rekha Coburn [facility] Note: Reduction in use of SMILEY to 1-2 nebulizer treatments per day. Measured by: Patient report Time frame: 6 months documented as of this encounter Visit Diagnoses Diagnosis Iron deficiency anemia, unspecified iron deficiency anemia type documented in this encounter Care Teams Frame Operator Relationship Specialty Start Date End Date Brandee Fuchs APRN PCP - General Family Medicine 01/17/19 documented as of this encounter
--- OUTSIDE RECORDS SUMMARY | 2024-05-14 03:36 | XMS_ITS | Encounter Summary ---
[place] [address] Care Team Providers Care Acetone Recovery Worker Name Role Phone Brandee Fuchs APRN Primary Care Provider [phone] Encounter Details Date Type Department Care Team (Late st Contact Info) Description 08/07/2020 [place] [phone] Silvano Lares Social History Tobacco Use Types Packs/Day Years [...] encounter Miscellaneous Notes * Telephone Encounter - Silvano Lares - 08/07/2020 4:53 PM EDT LMOAM X1 to schedule 6 week (telehealth) follow-up with Dr. Dubon. documented in this encounter Plan of Treatment Not on file documented as of this encounter Goals Goal Patient Goal Type Associated Problems Recent Progress Patient-Stated? Author [facility] Medication Compliance and Understanding Patient Facing Action Plan Yes Rekha Coburn, [facility] Note: Reduction in use of SMILEY to 1-2 nebulizer treatments per day. Measured by: Patient report Time frame: 6 months documented as of this encounter Visit Diagnoses Not on filedocumented in this encounter Care Teams Acetone Recovery Worker Relationship Specialty Start Date End Date Brandee Fuchs APRN PCP - General Family Medicine 01/17/19 documented as of this encounter
--- OUTSIDE RECORDS SUMMARY | 2024-05-14 03:36 | XMS_ITS | Encounter Summary ---
[place] [address] Care Team Providers Care Global Account Executive Name Role Phone Brandee Fuchs APRN Primary Care Provider [phone] Encounter Details Date Type Department Care Team (Late st Contact Info) Description 07/04/2020 Tele[place] [phone] Jaimie Simmons LNA Social History Tobacco Use Types Packs/Day Years [...] encounter Miscellaneous Notes * Telephone Encounter - Jaimie Simmons LNA - 07/04/2020 8:09 AM EDT Call from pt cancelling her pft and appt with Dr. Jagdish silva. She had her infusions yesterday and is not feeling well. Wants to reschedule for in clinic, let pt know I will send a message to Dr. Bates see where she can fit her. documented [...] on filedocumented in this encounter Care Teams Global Account Executive Relationship Specialty Start Date End Date Brandee Fuchs, MAVIS PCP - General Family Medicine 01/17/19 documented as of this encounter
--- OUTSIDE RECORDS SUMMARY | 2024-05-14 03:36 | XMS_ITS | Encounter Summary ---
Author Organization [facility] [place] [address] Care Team Providers Care Parking Technician Name Role Phone Brandee Fuchs APRN Primary Care Provider [phone] Encounter Details Date Type Department Care Team (Late st Contact Info) Description 09/02/2020 2:00 PM EST TH Visit (TeleHealth) [place] [address] Berkley Hernández APRN [facility] [address] Fibromyalgia Social History Tobacco Use Types Packs/Day [...] documented as of this encounter Patient Instructions * Patient Instructions* Berkley Hernández APRN - 09/02/2020 2:00 PM EST F/u 3 months, In person or tele documented in this encounter Progress Notes * Berkley Hernández APRN - 09/02/2020 2:00 PM [...] She did stop doing physical therapy, because wasmaking it worse. She has added in turmeric, she takes 1 tablet of 500mg daily. She is doing some PT exercises at home. She does as much walking as breathing allows. She has a portable neb, which she will need if she takes a walk. Prednisone does help breathing butnot as much as it helped years ago [...] find something that helps my pain so that PT is beneficial for me. I've been doing it since last June and it really hurts my joints. Mypain is at a steady, daily 10. My joints hurt. The PT makes this worse. I know that PT is helpful and I need to keep my joints moving. The pain in my joints has gotten a lot worse. I find that I'm having to lie down more and more after doing things because if the pain. I am exhausted. I still don'tsleep much, the pain still has me moving from position to position all night. I am scheduled for a sleep study next month. I tried to do the at home study but having the belt around my back and sideshurt so much, it got to the point where I had to take it off. 3. I haven't tried the Meloxicam yet. I have become very nervous about trying new meds. Nothing hasworked and I've had a lot of reactions. [...] about breathing in humid pool environment ROS: [place] Follows with pulorly for uncontrolled asthma, dxed [...] who smokes.?? 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 ?? [...] tolerated: cyclobenzaprine, elavil, cymbalta, indomethacin,tramadol, gabapentin, savella Could not afford the MMJ, as discussed at last visit. Will start LDN 1.5mg, can increase by 1.5mg qweek up to 4.5mg as necessary and tolerated. Pt to look into local compounding pharmacies and let me know [...] unspecified documented in this encounter Care Teams Parking Technician Relationship Specialty Start Date End Date Brandee Fuchs APRN PCP - General Family Medicine 01/17/19 documented as of this encounter
--- OUTSIDE RECORDS SUMMARY | 2024-05-14 03:36 | XMS_ITS | Encounter Summary ---
Author Organization [facility] Address [facility] [place] [address] Care Team Providers Care Water Jet Loom Fixer Name Role Phone Brandee Fuchs Obdulia GAMBLE Primary Care Provider [phone] Reason for Visit * Reason Comments Medication Refill Encounter Details Date Type Department Care Team (Late st Contact Info) Description 10/02/2020 Ref[place] [address] Nuha Dubon MD [facility] [place] [address] Social History Tobacco Use Types Packs/Day Years [...] on filedocumented in this encounter Care Teams Water Jet Loom Fixer Relationship Specialty Start Date End Date Brandee Fuchs APRN PCP - General Family Medicine 01/17/19 documented as of this encounter
--- OUTSIDE RECORDS SUMMARY | 2024-05-14 03:36 | XMS_ITS | Encounter Summary ---
Author Organization [facility] [place] [address] Care Team Providers Care Surveillance Dual Rate Officer Name Role Phone Brandee Fuchs APRN Primary Care Provider [phone] Encounter Details Date Type Department Care Team (Late st Contact Info) Description 12/29/2020 4:00 PM EDT TH Visit (TeleHealth) [place] [address] Berkley Hernández APRN [facility] [place] [address] Fibromyalgia Social History Tobacco Use Types Packs/Day [...] as of this encounter Progress Notes * Berkley Hernández APRN - 12/29/2020 4:00 PM [...] in the past, they affect her mind, hasbecome very anxious, paranoid Did not start LDN [...] about breathing in humid pool environment ROS: [place] Follows with pulm for uncontrolled asthma, dxed [...] who smokes.?? 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 ?? [...] ineffective or not tolerated: cyclobenzaprine, elavil, cymbalta, indomethacin,tramadol, gabapentin, savella MMJ, LDN, meloxicam were recommended in the past but not pursued. Worries about humidity with pool therapy. Not interested in massage as does not like to be touched.Not interested in acupuncture as afraid of needles. Discussed that I would not want to put her on meloxicam as she is on prednisone 10mg daily with pulm at this time. She will let me know [...] Patient Facing Action Plan Yes Rekha Coburn, [facility] Note: Reduction in use of SMILEY to 1-2 nebulizer treatments per day. Measured by: Patient report Time frame: 6 months documented as of this encounter Visit Diagnoses Diagnosis Fibromyalgia Mylagia and myositis, unspecified documented in this encounter Care Teams Surveillance Dual Rate Officer Relationship Specialty Start Date End Date Brandee Fuchs, BOOKKEEPER PCP - General Family Medicine 01/17/19 documented as of this encounter
--- OUTSIDE RECORDS SUMMARY | 2024-05-14 03:36 | XMS_ITS | Encounter Summary ---
Author Organization [facility] [place] [address] Care Team Providers Care Lending Consultant Name Role Phone Daniellino Brandee Steiner APRN Primary Care Provider [phone] Encounter Details Date Type Department Care Team (Latest Contact Info) Description 04/22/2021 2:00 PM EDT - 04/22/2021 11:59 PM EDT Hospital Encounter [place] [phone] Severe persistent asthma, unspecified whether complicated Discharge Disposition: Home Social History Tobacco Use Types Packs/Day Years [...] Sig Dispensed Refills Start Date End Date dexamethasone (Decadron) 4 mg TabletIndications:Iro n deficiency anemia, unspecified iron deficiency anemia type Take 1 tablet by mouth daily. Take one tablet daily X3 days following Iron infusion. 9 tablet 06/17/2020 dexamethasone (Decadron) 4 mg Tablet Take 1 tablet by mouth daily. Take daily x 3 days after each iron infusion 6 tablet 02/21/2020 cholecalciferol, Vitamin D3, 1,000 unit Capsule Take 2,000 Units by mouth daily. ondansetron (ZOFRAN) 4 mg Tablet Take 1 tablet by mouth 2 times daily as needed for Nausea. Take 1 hour prior to oral iron. 30 tablet 3 06/26/2019 multivitamin (THERAGRAN) Tablet Take 1 tablet by mouth daily. folic acid (FOLVITE) 1 mg Tablet Take 1 mg by mouth daily. albuterol (PROVENTIL) 2.5 mg /3 mL (0.083 %) Solution for Nebulization Take 2.5 mg by nebulization as needed. 0 09/10/2016 montelukast (SINGULAIR) 10 mg Tablet Take 10 mg by mouth daily. 0 09/10/2016 omeprazole (PRILOSEC) 40 mg Capsule, Delayed Release(E.C.) Take 40 mg by mouth daily. 0 09/10/2016 BREO ELLIPTA 200-25 mcg/dose Disk with Device Inhale 1 puff into the lungs daily. 1 07/14/2016 SPIRIVA RESPIMAT 1.25 mcg/actuation Mist Inhale 2 puffs into the lungs daily. 1 07/14/2016 triamcinolone (NASACORT OR NASACORT OTC) 55 mcg Aerosol, [place] 2 sprays by Nasal route daily. Fasenra Pen 30 mg/mL Auto-Injector Inject 30 mg subcutaneously Every 8 Weeks. 01/28/2021 06/25/2021 meloxicam (MOBIC) 7.5 mg Tablet Take 1 tablet by mouth daily. Take with food. 30 tablet 2 03/25/2021 12/16/2022 predniSONE (Deltasone) 5 mg Tablet Take 1 tablet by mouth daily. Take with 1 mg tabs to equal 8 mg daily 30 tablet 2 03/13/2021 06/17/2021 predniSONE (Deltasone) 1 mg Tablet Take 3 tablets by mouth daily. Take with 5 mg day to equal 8 mg daily. 90 tablet 2 03/13/2021 06/17/2021 TURMERIC ORAL Take by mouth. 12/16/2022 ipratropium-albuteroL (DUONEB) 0.5 mg-3 mg(2.5 mg base)/3 mL Solution for Nebulization Take 3 mLs by nebulization every 6 hours as needed. 12/16/2022 documented as of this encounter Plan of Treatment Not on file documented as of this encounter Goals Goal Patient Goal Type Associated Problems Recent Progress Patient-Stated? Author DH Home Medication Compliance and Understanding Patient Facing Action Plan Yes Rekha Coburn, [facility] Note: Reduction in use of SMILEY to 1-2 nebulizer treatments per day. Measured by: Patient report Time frame: 6 months documented as of this encounter Procedures Procedure Name Priority Date/Time Associated Diagnosis Comments COMMON PULMONARY FUNCTION TEST Routine 04/22/2021 2:18 PM EDT Severe persistent asthma, unspecified whether complicated documented in this encounter Results * Pulmonary Function Testing (04/22/2021 2:18 PM EDT) FVC Actual Pre-BD 2.99 L COMPAS PFT FVC Pre-BD % of Predicted 91 % COMPAS PFT FVC Predicted 3.29 L COMPAS PFT FVC Pre-BD Z-Score -0.71 COMPAS PFT FVC Lower Limits of Normal 2.61 L COMPAS PFT FEV1 Actual Pre-BD 2.35 L COMPAS PFT FEV1 Pre-BD % of Predicted 88 % COMPAS PFT FEV1 Predicted 2.68 L COMPAS PFT FEV1 Pre-BD Z-Score -0.97 COMPAS PFT FEV1 Lower Limits of Normal 2.12 L COMPAS PFT FEV1 / FVC Actual Pre-BD 79 % COMPAS PFT FEV1/FVC Pre-BD Z-Score -0.48 COMPAS PFT FEV1 / FVC LLN 71 % COMPAS PFT [id number] Actual Pre-BD 2.28 L/s COMPAS PFT [id number] Pre-BD % of Predicted 81 % COMPAS PFT [id number] Predicted 2.83 L/s COMPAS PFT [id number] Pre-BD Z-Score -0.73 COMPAS PFT DLCO Hb Actual Pre-BD 22.15 mL/min/mmHg COMPAS PFT DLCO Hb Pre-BD % of Predicted 112 % COMPAS PFT DLCO Hb Pre-BD Z-Score 0.68 COMPAS PFT DLCO Hb Predicted 19.80 mL/min/mmHg COMPAS PFT DLCO UNC ACT PRE-BD 22.15 mL/min/mmHg COMPAS PFT DLCO UNC PRE-BD % of PRED 112 % COMPAS PFT DLCO UNC PRE-BD Z-SCORE 0.68 % COMPAS PFT DLCO UNC Predicted 19.80 mL/min/mmHg COMPAS PFT DLCO/VA Actual Pre-BD 4.91 mL/min/mmHg /L COMPAS PFT DLCO/VA Pre-BD % of Predicted 109 % COMPAS PFT DLCO/VA Pre-BD Z-Score 0.62 COMPAS PFT DLCO/VA Predicted 4.50 mL/min/mmHg /L COMPAS PFT Narrative COMPAS PFT - 04/22/2021 2:18 PM EDT FINDINGS: FEV1, FVC, and FEV1/VC are within normal limits. Diffusion capacity is normal. IMPRESSION: Normal spirometry. No diffusion impairment. Compared to the last PFTs from 12/14/19, there has been an improvement in the FVC and FEV1. Procedure Note Mariam Gonzales MD - 04/23/2021 FINDINGS: FEV1, FVC, and FEV1/VC are within normal limits. Diffusioncapacity is normal. IMPRESSION: Normal spirometry. No diffusion impairment. Compared to thelast PFTs from 12/14/19, there has been an improvement in the FVC and FEV1. Nuha Dubon MD PFT ORDERABLES COMPAS PFT documented in this encounter Visit Diagnoses Diagnosis Severe persistent asthma, unspecified whether complicated documented in this encounter Care Teams Lending Consultant Relationship Specialty Start Date End Date Brandee Fuchs, FIRE OFFICER PCP - General Family Medicine 01/17/19 documented as of this encounter
--- OUTSIDE RECORDS SUMMARY | 2024-05-14 03:36 | XMS_ITS | Encounter Summary ---
Author Organization [facility] [place] [address] Care Team Providers Care Manager Long Term Care Name Role Phone Brandee Fuchs APRN Primary Care Provider [phone] Reason for Visit * Reason Comments Chemotherapy venofer Encounter Details Date Type Department Care Team (Late st Contact Info) Description 06/26/2020 1:00 PM EDT Infusion Hematology Oncology at [address] [phone] Iron deficiency anemia, unspecified iron deficiency anemia [...] 36.4 ??C (97.5 ??F) 06/26/2020 1:11 PM ED T Respiratory Rate 16 06/26/2020 1:11 PM EDT Oxygen Saturation 98% 06/26/2020 1:11 PM EDT Inhaled Oxygen Concentration - - Weight - - Height - - Body Mass Index - - documented in this encounter Progress Notes * Mandi Garay RN - 06/26/2020 1:00 PM EDT INFUSION THERAPY ADMINISTRATION NOTES TIME TREATMENT STARTED: 1309 TIME TREATMENT ENDED: 1514 DIAGNOSIS: anemia PROTOCOL:na CYCLE #: na REASON [...] Patient Facing Action Plan Yes Rekha Coburn, [facility] Note: Reduction in use of SMILEY to [...] Date Dose Rate Site dexamethasone (Decadron) injection 10 mg 10 mg, Intravenous, ONCE, 1 dose, On Rachel 06/26/20 at 1300 Given 06/26/2020 1:31 PM EDT 10 mg iron sucrose (Venofer) 300 mg in sodium chloride 0.9% 115 mL 300 mg, Intravenous, WEEKLY, 1 dose, First dose (after last reorder) on Rachel 06/26/20 at 1300, Administer over 90 Minutes, Patients should be closely monitored for signs of hypersensitivity during and for at least 30 min after each administration. Dose 2 of 3 New Bag 06/26/2020 1:40 PM EDT 300 mg 76.7 mL/hr ondansetron (Zofran) tablet 8 mg 8 mg, Oral, ONCE, 1 dose, On Rachel 06/26/20 at 1300, Routine Given 06/26/2020 1:29 PM EDT 8 mg documented in this encounter Care Teams Manager Long Term Care Relationship Specialty Start Date End Date Heck, Brandee K, MAVIS PCP - General Family Medicine 01/17/19 documented as of this encounter
--- OUTSIDE RECORDS SUMMARY | 2024-05-14 03:36 | XMS_ITS | Encounter Summary ---
[place] [address] Care Team Providers Care Stage Rigger Name Role Phone Brandee Fuchs Obdulia GAMBLE Primary Care Provider [phone] Encounter Details Date Type Department Care Team (Latest Contact Info) Description 09/10/2020 11:00 AM EST TH Visit (TeleHealth) [place] [address] Nuha Dubon MD [facility] [place] [address] Severe persistent asthma, unspecified whether complicated; Environmental allergies; Rash Social History Tobacco Use Types Packs/Day Years [...] as of this encounter Progress Notes * Nuha Dubon MD - 09/10/2020 11:00 AM EST Images from the original note were not included. [facility] Section of Pulmonary and Critical Care Medicine Outpatient Consultation Date of Encounter: 09/10/2020 TELEHEALTH VISIT Patient identity was confirmed by name and date of at beginning of this telehealth visit. Patient was informed that this telehealth visit is a billable encounter and stated agreement to continue. The patient is at home in [place]. This visit was conducted by phone due to lack of video-based telehealth capacity in the patient's home. Reason for Evaluation: Ms. Malu De returns to the pulmonary clinic for follow-up of asthma.I independently interviewed the patient, have examined the [...] (feels this is her 'normal pattern), taking breo daily. Duonebs did not help more than albuterol [...] triggers currently but lives in the [place]. Underwear Trimmer and scents/perfumes are a big trigger as [...] X3 days following Iron infusion. 9 tablet 0 ??? dexamethasone [...] (NASACORT OR NASACORT OTC) 55 mcg Aerosol, [place] 2 sprays by Nasal route daily. No [...] use of dupixent due to rash while onthis therapy. Interestingly, the rash on her leg has taken a very long time to stop intermittently appearing, and I am unsure if this is related to her dupixent at all. None the less, as dupixent didnot improve daily symptoms, I am still recommending we try a different biologic drug for asthma, benralizumab, to see if this both improves her daily symptoms, reduces frequency of oral corticosteroid need, and is tolerable. She would like to postpone starting this until she has started a new medication (oral naltrexone) from her [employer] consultant, as she has had many reactions to medications in thepast and finds it easier to introduce one new medication [...] therapy with Breo Ellipta (ICS/LABA) and spiriva (LAMA) daily, and will continue singulair and nasacort for [...] of clinical time. Nuha Dubon MD [facility] PULMONOLOGY AT [facility] [address] Dept: [phone] Loc: [phone] documented in this encounter Plan of Treatment Not on file documented as of this encounter Goals Goal Patient Goal Type Associated Problems Recent Progress Patient-Stated? Author DH Home Medication Compliance and Understanding Patient Facing Action Plan Yes Rekha Coburn, [facility] Note: Reduction in use of SMILEY to 1-2 nebulizer treatments per day. Measured by: Patient report Time frame: 6 months documented as of this encounter Visit Diagnoses Diagnosis Severe persistent asthma, unspecified whether complicated Environmental allergies Allergic rhinitis, cause unspecified Rash Rash and other nonspecific skin eruption documented in this encounter Care Teams Stage Rigger Relationship Specialty Start Date End Date Brandee Fuchs APRN PCP - General Family Medicine 01/17/19 documented as of this encounter
--- OUTSIDE RECORDS SUMMARY | 2024-05-14 03:36 | XMS_ITS | Encounter Summary ---
[place] [address] Care Team Providers Care Advanced Seal Delivery System Name Role Phone Brandee Fuchs APRN Primary Care Provider [phone] Encounter Details Date Type Department Care Team (Late st Contact Info) Description 08/06/2020 [place] [phone] Jaimie Simmons LNA Social History Tobacco Use [...] Telephone Encounter - Jaimie Simmons LNA - 08/06/2020 10:37 AM EDT Call from pt, she can't do the video visit, asked to have a phone call from Dr. Dubon. Sent page to Dr. Dubon to please call pt. documented in this encounter Plan of Treatment Not on file documented as of this encounter Goals Goal Patient Goal Type Associated Problems Recent Progress Patient-Stated? Author [facility] Medication Compliance and Understanding Patient Facing Action Plan Yes Rekha Coburn, [facility] Note: Reduction in use of SMILEY to 1-2 nebulizer treatments per day. Measured by: Patient report Time frame: 6 months documented as of this encounter Visit Diagnoses Not on filedocumented in this encounter Care Teams Advanced Seal Delivery System Relationship Specialty Start Date End Date Brandee Fuchs APRN PCP - General Family Medicine 01/17/19 documented as of this encounter
--- OUTSIDE RECORDS SUMMARY | 2024-05-14 03:36 | XMS_ITS | Encounter Summary ---
Author Organization [facility] [place] [address] Care Team Providers Care County Home Demonstration Agent Name Role Phone Daniellino Brandee Steiner APRN Primary Care Provider [phone] Reason for Visit * Reason Comments IV Medication Venofer Encounter Details Date Type Department Care Team (Late st Contact Info) Description 06/19/2020 1:00 PM EDT Infusion Hematology Oncology at [address] [phone] Iron deficiency anemia, unspecified iron deficiency anemia [...] 36.6 ??C (97.9 ??F) 06/19/2020 1:27 PM ED T Respiratory Rate 18 06/19/2020 1:27 PM EDT Oxygen Saturation 97% 06/19/2020 1:27 PM EDT Inhaled Oxygen Concentration - - Weight - - Height - - Body Mass Index - - documented in this encounter Progress Notes * Jodi Ly RN - 06/19/2020 1:00 PM [...] Patient Facing Action Plan Yes Rekha Coburn, [facility] Note: Reduction in use of SMILEY [...] 1 dose, On Rachel 06/19/20 at 1345 Given 06/19/2020 1:43 PM EDT 10 mg iron sucrose (Venofer) 300 mg in sodium chloride 0.9% 115 mL 300 mg, Intravenous, WEEKLY, 3 doses, First dose on Rachel 06/19/20 at 1330, Last dose on Rachel 07/03/20 at 0900, Administer over 90 Minutes, Patients should be closely monitored for signs of hypersensitivity during and for at least 30 min after each administration. , Outpatient Transfusion Given 06/19/2020 2:16 PM EDT 300 mg 76.7 mL/hr ondansetron (Zofran) tablet 8 mg 8 mg, Oral, ONCE, 1 dose, On Rachel 06/19/20 at 1345, Routine Given 06/19/2020 1:42 PM EDT 8 mg documented in this encounter Care Teams County Home Demonstration Agent Relationship Specialty Start Date End Date Brandee Fuchs, MAVIS PCP - General Family Medicine 01/17/19 documented as of this encounter
--- OUTSIDE RECORDS SUMMARY | 2024-05-14 03:36 | XMS_ITS | Encounter Summary ---
[place] [address] Care Team Providers Care Trolley Car Overhauler Name Role Phone Brandee Fuchs APRN Primary Care Provider [phone] Reason for Visit * Reason Onset Date Comments Medication Refill 10/08/2020 Encounter Details Date Type Department Care Team (Late st Contact Info) Description 10/08/2020 Refill [place] [address] Alessio Gilbert, RN Social History Tobacco Use Types Packs/Day Years [...] Patient Facing Action Plan Yes Rekha Coburn, [facility] Note: Reduction in use of SMILEY to 1-2 nebulizer treatments per day. Measured by: Patient report Time frame: 6 months documented as of this encounter Visit Diagnoses Not on filedocumented in this encounter Care Teams Trolley Car Overhauler Relationship Specialty Start Date End Date Brandee Fuchs APRN PCP - General Family Medicine 01/17/19 documented as of this encounter
--- OUTSIDE RECORDS SUMMARY | 2024-05-14 03:36 | XMS_ITS | Encounter Summary ---
Author Organization [facility] [place] [address] Care Team Providers Care Submarine Worker Name Role Phone Brandee Fuchs APRN Primary Care Provider [phone] Encounter Details Date Type Department Care Team (Late st Contact Info) Description 07/22/2020 Telephone Sleep Center at [facility] [address] [place] [address] Wendy Webb Social History Tobacco Use Types Packs/Day Years [...] encounter Miscellaneous Notes * Telephone Encounter - Wendy Webb - 07/22/2020 [...] on filedocumented in this encounter Care Teams Submarine Worker Relationship Specialty Start Date End Date Brandee Fuchs APRN PCP - General Family Medicine 01/17/19 documented as of this encounter
--- OUTSIDE RECORDS SUMMARY | 2024-05-14 03:36 | XMS_ITS | Encounter Summary ---
Author Organization [facility] [place] [address] Care Team Providers Care Assessment Services Manager Name Role Phone Brandee Fuchs Obdulia GAMBLE Primary Care Provider [phone] Reason for Visit * Reason Comments Medication Management Patient Education Encounter Details Date Type Department Care Team (Late st Contact Info) Description 11/12/2020 Specialty [place] [address] Wilmer Rodrigues RPH Social History Tobacco Use Types Packs/Day [...] as of this encounter Progress Notes * Wilmer Rodrigues RPH - 11/12/2020 2:45 PM EST Clinical Management Plan: Unable to Contact Patient Specialty Pharmacy Consultation; Wilmer Rodrigues RPH Comprehensive Medication Management (CMM) Malu De Ms. Malu De is a 44 y.o. (1975) female that Specialty Pharmacy has attempted to reach on 5 separate occasions since 09/23/2020 to offer a new start consult on benralizumab. Due to lackof response, we will cease outreach at this point. I left a message today asking Malu to call usback should there be an update to her care plan. Adherence: Gaps in fill history: has not started treatment Was a change made to the Care Plan: yes - has not started benralizumab If yes, should the medication be held: No At this time the Specialty pharmacy will only attempt to contact the patient every 5 business days until further notice. Wilmer Rodrigues RPH 11/12/20 2:46 PM documented in this encounter Plan of Treatment Not on file documented as of this encounter Goals Goal Patient Goal Type Associated Problems Recent Progress Patient-Stated? Author Home Medication Compliance and Understanding Patient Facing Action Plan Yes Rekha Coburn Bryce Note: Reduction in use of SMILEY to 1-2 nebulizer treatments per day. Measured by: Patient report Time frame: 6 months documented as of this encounter Visit Diagnoses Not on filedocumented in this encounter Care Teams Assessment Services Manager Relationship Specialty Start Date End Date Brandee Fuchs, MAVIS PCP - General Family Medicine 01/17/19 documented as of this encounter
--- OUTSIDE RECORDS SUMMARY | 2024-05-14 03:36 | XMS_ITS | Encounter Summary ---
[place] [address] Care Team Providers Care White Mixing Operator Name Role Phone Daniellino Brandee Steiner APRN Primary Care Provider [phone] Reason for Visit * Reason Comments Specialty Pharmacy Review Encounter Details Date Type Department Care Team (Late st Contact Info) Description 09/10/2020 Specialty [place] [address] Isabella Price, [facility] Social History Tobacco Use Types Packs/Day [...] encounter Progress Notes * Isabella Chairez - 09/10/2020 11:59 PM EST The - Specialty Pharmacy has completed a benefits investigation for Malu De to review their eligibility to fill at [facility]. Per patient's medication list they are prescribed Fasenra, however Malu hasn't started on therapy yet and will reach out to the [facility] when she is ready to start. documented in this encounter Plan of Treatment Not on file documented as of this encounter Goals Goal Patient Goal Type Associated Problems Recent Progress Patient-Stated? Author DH Home Medication Compliance and Understanding Patient Facing Action Plan Yes Rekha Coburn, STEPHANY Note: Reduction in use of SMILEY to 1-2 nebulizer treatments per day. Measured by: Patient report Time frame: 6 months documented as of this encounter Visit Diagnoses Not on filedocumented in this encounter Care Teams White Mixing Operator Relationship Specialty Start Date End Date Brandee Fuchs, MAVIS PCP - General Family Medicine 01/17/19 documented as of this encounter
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
--- OUTSIDE RECORDS SUMMARY | 2024-05-14 03:36 | XMS_ITS | Encounter Summary ---
[place] [address] Care Team Providers Care Mainspring Strip Gauger Name Role Phone Brandee Fuchs APRN Primary Care Provider Reason for Visit * Reason Onset Date Comments Medication Refill 10/06/2020 Encounter Details Date Type Department Care Team (Late st Contact Info) Description 10/06/2020 Refill [place] [address] Alessio Gilbert, RN Social History Tobacco Use [...] encounter Miscellaneous Notes * Telephone Encounter - Alessio Gilbert RN - 10/06/2020 12:10 PM EST Images from the original note were not included. Berkley Hernández, MAVIS P [facility] Rheumatology Nurse ?? Can you please cue up low dose naltrexone for me. Not sure how to order this electronically. I already called in the rx to [facility], but need the order in her chart for PA.The instrutions are as in the note--start LDN 1.5mg, can increase by 1.5mg qweek up to 4.5mg as necessary and tolerated. Thank you. documented in this encounter Plan of Treatment [...] on filedocumented in this encounter Care Teams Mainspring Strip Gauger Relationship Specialty Start Date End Date Brandee Fuchs APRN PCP - General Family Medicine 01/17/19 documented as of this encounter
--- OUTSIDE RECORDS SUMMARY | 2024-05-14 03:36 | XMS_ITS | Encounter Summary ---
Author Organization [facility] [place] [address] Care Team Providers Care Art Sales Consultant Name Role Phone Brandee Fuchs APRN Primary Care Provider [phone] Encounter Details Date Type Department Care Team (Late st Contact Info) Description 09/05/2020 Telephone [place] [id number] Silvano Lares Social History Tobacco Use Types [...] * Telephone Encounter - Silvano Lares - 09/05/2020 4:32 PM EST LMOAM X1 to schedule 3 month f/u (in person or telehealth) with Berkley Hernández. documented in this encounter Plan of Treatment Not on file documented as of this encounter Goals Goal Patient Goal Type Associated Problems Recent Progress Patient-Stated? Author [facility] Medication Compliance and Understanding Patient Facing Action Plan Yes Rekha Coburn, [facility] Note: Reduction in use of SMILEY to 1-2 nebulizer treatments per day. Measured by: Patient report Time frame: 6 months documented as of this encounter Visit Diagnoses Not on filedocumented in this encounter Care Teams Art Sales Consultant Relationship Specialty Start Date End Date Brandee Fuchs APRN PCP - General Family Medicine 01/17/19 documented as of this encounter
--- OUTSIDE RECORDS SUMMARY | 2024-05-14 03:36 | XMS_ITS | Encounter Summary ---
[place] [address] Care Team Providers Care Contact Lens Blocker And Cutter Name Role Phone Brandee Fuchs APRN Primary Care Provider [phone] Encounter Details Date Type Department Care Team (Late st Contact Info) Description 08/06/2020 Telephone [place] [id number] [place], Jaimie L, TERRA COTTA ROOFER Social History Tobacco Use Types Packs/Day Years [...] Associated Problems Recent Progress Patient-Stated? Author [facility] Medication Compliance and Understanding Patient Facing Action Plan Yes Rekha Coburn, [facility] Note: Reduction in use of SMILEY to 1-2 nebulizer treatments per day. Measured by: Patient report Time frame: 6 months documented as of this encounter Visit Diagnoses Not on filedocumented in this encounter Care Teams Contact Lens Blocker And Cutter Relationship Specialty Start Date End Date Brandee Fuchs APRN PCP - General Family Medicine 01/17/19 documented as of this encounter
--- OUTSIDE RECORDS SUMMARY | 2024-05-14 03:36 | XMS_ITS | Encounter Summary ---
[place] [address] Care Team Providers Care Lighting Specialist Name Role Phone DanielBrandee huynh Obdulia GAMBLE Primary Care Provider [phone] Reason for Visit * Reason Onset Date Comments Other 03/23/2021 CXR order Encounter Details Date Type Department Care Team (Late st Contact Info) Description 03/23/2021 Telephone [place] [address] Chucky Shaffer RN Other (CXR order) Social History Tobacco Use Types Packs/Day Years [...] encounter Miscellaneous Notes * Telephone Encounter - Chucky Shaffer RN - 03/23/2021 2:28 PM EDT RN refaxed copy of CXR order requisition to [facility]. Attached to this was a copy of [...] on filedocumented in this encounter Care Teams Lighting Specialist Relationship Specialty Start Date End Date Brandee Fuchs APRN PCP - General Family Medicine 01/17/19 documented as of this encounter
--- OUTSIDE RECORDS SUMMARY | 2024-05-14 03:36 | XMS_ITS | Encounter Summary ---
Author [facility] [place] [address] Care Team Providers Care Psychodramatist Name Role Phone Brandee Fuchs Obdulia GAMBLE Primary Care Provider [phone] Encounter Details Date Type Department Care Team (Late st Contact Info) Description 04/01/2021 Ancillary Procedure [place] [address] Nuha Dubon MD [facility] [address] Social History Tobacco Use Types Packs/Day Years [...] Procedure Name Priority Date/Time Associated Diagnosis Comments FILM LIBRARY STORAGE ONLY DX CHEST Routine 04/01/2021 12:00 AM EDT documented in this encounter Results * Film Library- Storage Only DX Chest (04/01/2021 12:00 AM EDT) Narrative [facility] - 04/02/2021 8:00 AM EDT This exam is auto-finalizing. It's purpose is for storage only. Nuha Dubon MD IMG FILM LIBRARY ORD ERABLES [place], [place] documented in this encounter Visit Diagnoses Not on filedocumented in this encounter Care Teams Psychodramatist Relationship Specialty Start Date End Date Brandee Fuchs, SILVER DESIGNER PCP - General Family Medicine 01/17/19 documented as of this encounter
--- OUTSIDE RECORDS SUMMARY | 2024-05-14 03:36 | XMS_ITS | Encounter Summary ---
[place] [address] Care Team Providers Care Casting Trucker Name Role Phone Daniellino Brandee Steiner APRN Primary Care Provider Encounter Details Date Type Department Care Team (Late st Contact Info) Description 06/23/2020 [place] [phone] Jaimie Simmons LNA Social History Tobacco Use [...] on 07/04 (per DANNIE). Pt aware date, time, location. documented in this encounter Plan of Treatment Not on file documented as of this encounter Goals Goal Patient Goal Type Associated Problems Recent Progress Patient-Stated? Author [facility] Medication Compliance and Understanding Patient Facing Action Plan Yes Rekha Coburn, RP Note: Reduction in use of SMILEY to 1-2 nebulizer treatments per day. Measured by: Patient report Time frame: 6 months documented as of this encounter Visit Diagnoses Not on filedocumented in this encounter Care Teams Casting Trucker Relationship Specialty Start Date End Date Brandee Fuchs APRN PCP - General Family Medicine 01/17/19 documented as of this encounter
--- OUTSIDE RECORDS SUMMARY | 2024-05-14 03:36 | XMS_ITS | Encounter Summary ---
Author Organization [facility] [place] [address] Care Team Providers Care Rod Cup Filler Name Role Phone Brandee Fuchs APRN Primary Care Provider [phone] Encounter Details Date Type Department Care Team (Late st Contact Info) Description 11/25/2020 2:00 PM EST TH Visit (TeleHealth) [place] [address] Berkley Hernández APRN [facility] [place] [address] Fibromyalgia Social History Tobacco Use Types Packs/Day [...] Progress Notes * Berkley Hernández APRN - 11/25/2020 2:00 PM [...] unspecified documented in this encounter Care Teams Rod Cup Filler Relationship Specialty Start Date End Date Brandee Fuchs APRN PCP - General Family Medicine 01/17/19 documented as of this encounter
--- OUTSIDE RECORDS SUMMARY | 2024-05-14 03:36 | XMS_ITS | Encounter Summary ---
Author Organization [facility] [place] [address] Care Team Providers Care Automotive Instructor Name Role Phone Brandee Fuchs APRN Primary Care Provider [phone] Encounter Details Date Type Department Care Team (Latest Contact Info) Description 02/24/2021 1:00 PM EDT TH Visit (TeleHealth) [place] [address] Berkley Hernández APRN [facility] [address] Fibromyalgia; Hypermobile joints Social History Tobacco Use Types Packs/Day Years [...] Progress Notes * Berkley Hernández APRN - 02/24/2021 1:00 PM [...] worse. Her hips and knees. Ankles and shouldersas well. Her hip feels like it is [...] not tolerated: cyclobenzaprine, elavil, cymbalta, indomethacin,tramadol, gabapentin, savella. MMJ, LDN, meloxicam were recommended [...] amenable to this plan. We will be in touch after her early March pulm appt to discuss the status of her pred taper, which will be dictated by pul. Patient verbally consents to this telephone [...] Hypermobile joints Other joint derangement, not elsewhere classified, unspecified site documented in this encounter Care Teams Automotive Instructor Relationship Specialty Start Date End Date Brandee Fuchs APRN PCP - General Family Medicine 01/17/19 documented as of this encounter
--- OUTSIDE RECORDS SUMMARY | 2024-05-14 03:36 | XMS_ITS | Encounter Summary ---
[place] [address] Care Team Providers Care City Carrier Assistant Name Role Phone Brandee Fuchs APRN Primary Care Provider [phone] Encounter Details Date Type Department Care Team (Late st Contact Info) Description 07/08/2020 [place] [phone] Fela Masterson Social History Tobacco Use Types Packs/Day Years [...] Type Associated Problems Recent Progress Patient-Stated? Author [facility] Medication Compliance and Understanding Patient Facing Action Plan Yes Rekha Coburn, [facility] Note: Reduction in use of SMILEY to 1-2 nebulizer treatments per day. Measured by: Patient report Time frame: 6 months documented as of this encounter Visit Diagnoses Not on filedocumented in this encounter Care Teams City Carrier Assistant Relationship Specialty Start Date End Date Brandee Fuhcs APRN PCP - General Family Medicine 01/17/19 documented as of this encounter
--- OUTSIDE RECORDS SUMMARY | 2024-05-14 03:36 | XMS_ITS | Encounter Summary ---
[place] [address] Care Team Providers Care Chemistry Account Manager Name Role Phone DanielBrandee huynh Obdulia GAMBLE Primary Care Provider [phone] Reason for Visit * Reason Onset Date Comments Follow-up 03/20/2021 on [employer] message Encounter Details Date Type Department Care Team (Late st Contact Info) Description 03/20/2021 [place] [phone] Erica Garrison, RN Follow-up (on [employer] message) Social History Tobacco Use Types Packs/Day Years [...] from anyone. I advised her to hold Celebrexand if her condition worsens then she needs [...] Patient Facing Action Plan Yes Rekha Coburn [facility] Note: Reduction in use of SMILEY to 1-2 nebulizer treatments per day. Measured by: Patient report Time frame: 6 months documented as of this encounter Visit Diagnoses Not on filedocumented in this encounter Care Teams Chemistry Account Manager Relationship Specialty Start Date End Date Brandee Fuchs APRN PCP - General Family Medicine 01/17/19 documented as of this encounter
--- OUTSIDE RECORDS SUMMARY | 2024-05-14 03:36 | XMS_ITS | Encounter Summary ---
[place] [address] Care Team Providers Care Weed Inspector Name Role Phone Daniellino Brandee Steiner APRN Primary Care Provider [phone] Encounter Details Date Type Department Care Team (Late st Contact Info) Description 07/07/2020 Telephone [place] [phone] Jaimie Simmons LNA Social History Tobacco Use [...] Type Associated Problems Recent Progress Patient-Stated? Author [facility] Medication Compliance and Understanding Patient Facing Action Plan Yes Rekha Coburn, [facility] Note: Reduction in use of SMILEY to 1-2 nebulizer treatments per day. Measured by: Patient report Time frame: 6 months documented as of this encounter Visit Diagnoses Not on filedocumented in this encounter Care Teams Weed Inspector Relationship Specialty Start Date End Date Brandee Fuchs APRN PCP - General Family Medicine 01/17/19 documented as of this encounter
--- OUTSIDE RECORDS SUMMARY | 2024-05-14 03:36 | XMS_ITS | Encounter Summary ---
Author Organization [facility] [place] [address] Care Team Providers Care Assistant Tennis Coach Name Role Phone Brandee Fuchs APRN Primary Care Provider [phone] Encounter Details Date Type Department Care Team (Late st Contact Info) Description 06/24/2020 [place] [address] Nuha Dubon MD [facility] [place] [address] Social History Tobacco Use Types Packs/Day Years [...] Patient Facing Action Plan Yes Rekha Coburn, [facility] Note: Reduction in use of SMILEY to 1-2 nebulizer treatments per day. Measured by: Patient report Time frame: 6 months documented as of this encounter Visit Diagnoses Not on filedocumented in this encounter Care Teams Assistant Tennis Coach Relationship Specialty Start Date End Date Brandee Fuchs APRN PCP - General Family Medicine 01/17/19 documented as of this encounter
--- OUTSIDE RECORDS SUMMARY | 2024-05-14 03:36 | XMS_ITS | Encounter Summary ---
Author Organization [facility] [place] [address] Care Team Providers Care Middle School Football Coach Name Role Phone Brandee Fuchs APRN Primary Care Provider [phone] Encounter Details Date Type Department Care Team (Late st Contact Info) Description 03/25/2021 8:00 AM EDT TH Visit (TeleHealth) [place] [address] Berkley Hernández APRN [facility] [place] [address] Fibromyalgia Social History Tobacco Use Types Packs/Day [...] Progress Notes * Berkley Hernández APRN - 03/25/2021 8:00 AM [...] not tolerated: cyclobenzaprine, elavil, cymbalta, indomethacin,tramadol, gabapentin, savella, celebrex MMJ, LDN, meloxicam were [...] she is on pred 8mg. She will letus know if she has any problems tolerating. In the future, should the meloxicam not work well for her, I would strongly recommend she might meet with a complementary medicine practitioner d/t medication intolerances [...] Patient Facing Action Plan Yes Rekha Coburn [facility] Note: Reduction in use of SMILEY to 1-2 nebulizer treatments per day. Measured by: Patient report Time frame: 6 months documented as of this encounter Visit Diagnoses Diagnosis Fibromyalgia Mylagia and myositis, unspecified documented in this encounter Care Teams Middle School Football Coach Relationship Specialty Start Date End Date Brandee Fuchs APRN PCP - General Family Medicine 01/17/19 documented as of this encounter
--- OUTSIDE RECORDS SUMMARY | 2024-05-14 03:36 | XMS_ITS | Encounter Summary ---
Author Organization [facility] [place] [address] Care Team Providers Care Site Interpreter Name Role Phone Daniellino Brandee Steiner APRN Primary Care Provider [phone] Reason for Visit * Reason Comments IV Medication Venofer 300 mg Encounter Details Date Type Department Care Team (Late st Contact Info) Description 07/03/2020 1:00 PM EDT Infusion Hematology Oncology at [address] [phone] Iron deficiency anemia, unspecified iron deficiency anemia [...] 36.5 ??C (97.7 ??F) 07/03/2020 1:12 PM ED T Respiratory Rate 18 07/03/2020 1:12 PM EDT Oxygen Saturation 99% 07/03/2020 1:12 PM EDT Inhaled Oxygen Concentration - - Weight - - Height 156.2 cm (5' 1.5) 07/03/2020 1:12 PM EDT Body Mass Index - - documented in this encounter Progress Notes * Korin Denise RN - 07/03/2020 1:00 PM [...] Facing Action Plan Yes Rekha Coburn [facility] Note: Reduction in use of SMILEY [...] 1 dose, On Rachel 07/03/20 at 1300 Given 07/03/2020 1:30 PM EDT 10 mg iron sucrose (Venofer) 300 mg in sodium chloride 0.9% 115 mL 300 mg, Intravenous, WEEKLY, 1 dose, First dose (after last reorder) on Rachel 07/03/20 at 1300, Administer over 90 Minutes, Patients should be closely monitored for signs of hypersensitivity during and for at least 30 min after each administration. Dose 3 of 3 Given 07/03/2020 1:50 PM EDT 300 mg 76.7 mL/hr ondansetron (Zofran) tablet 8 mg 8 mg, Oral, ONCE, 1 dose, On Rachel 07/03/20 at 1300, Routine Given 07/03/2020 1:30 PM EDT 8 mg documented in this encounter Care Teams Site Interpreter Relationship Specialty Start Date End Date Brandee Fuchs, MAVIS PCP - General Family Medicine 01/17/19 documented as of this encounter
--- OUTSIDE RECORDS SUMMARY | 2024-05-14 03:36 | XMS_ITS | Encounter Summary ---
Author Organization [facility] [place] [address] Care Team Providers Care Wallcovering Hanger Name Role Phone Brandee Fuchs APRN Primary Care Provider [phone] Encounter Details Date Type Department Care Team (Late st Contact Info) Description 10/09/2020 1:00 PM EST Office Visit Hematology/Oncology at [address] [phone] Basilia Vaughan APRN [address] [place] [address] HEMATOLOGY ONCOLOGY [place], [place] [id number] Iron deficiency anemia, unspecified iron deficiency anemia [...] documented in this encounter Progress Notes * Basilia Vaughan, LIVESTOCK DEALER - 10/09/2020 1:00 PM EST Images from the original note were not included. Subjective: Patient ID: Malu De is a 44 y.o. female. Patient Active Problem List Diagnosis ??? Fatigue ??? Fibromyalgia ??? Asthma HPI ?? The patient is a 44-year-old female who [facility] of [...] she was mildly anemic with a ferritin down to single digits again. ?? She is here [...] low ferritin levels. She is unable to tole rate oral iron tablets. Malu also struggles with chronic pain issues and asthma issues. She is followed by rheumatology and pulmonology. Today Malu has no anemia-related symptoms to report. Her energy level is about the same. She remains unable to work due to other medical problems. She denies weakness, heart palpitations, shortness or breath or chest pain. She denies any signs ofbleeding or bruising. She has done some physical therapy for chronic pain issues. I asked her how she was doing with regard to her daughter's passing earlier this year, and this wasunfortunately upsetting to Malu. She requested to not discuss it. Allergies Allergen Reactions ??? Dupixent Pen [Dupilumab] Rash Rash intermittently on extremities. ??? Acetaminophen Mouth blisters ??? Amitriptyline Anxiety ??? Cyclobenzaprine Other (See Comments) Small blisters ??? Cymbalta [Duloxetine] Anxiety ??? Dulera [Mometasone-Formoterol] Other (See Comments) Mental alterations ??? Gabapentin Other (See Comments) [facility] like body was shaking, nerves vibrating, hands [...] (NASACORT OR NASACORT OTC) 55 mcg Aerosol, [place] Review of Systems Constitutional: Negative for activity [...] type documented in this encounter Care Teams Wallcovering Hanger Relationship Specialty Start Date End Date Brandee Fuchs APRN PCP - General Family Medicine 01/17/19 documented as of this encounter
--- OUTSIDE RECORDS SUMMARY | 2024-05-14 03:36 | XMS_ITS | Encounter Summary ---
[place] [address] Care Team Providers Care Magnetic Observer Name Role Phone Brandee Fuchs MAVIS Primary Care Provider [phone] Reason for Visit * Reason Onset Date Comments Disability Paperwork 04/24/2021 Encounter Details Date Type Department Care Team (Late st Contact Info) Description 04/24/2021 [place] [address] Chucky Shaffer RN Disability Paperwork Social History Tobacco Use Types Packs/Day Years [...] submission confirmation time stamped for 04/24/2021 @ 7953. 4 pages with cover sheet. Copy of Disability Forms sent to scanning for inclusion to patient records. documented in this encounter Plan of Treatment Not on file documented as of this encounter Goals Goal Patient Goal Type Associated Problems Recent Progress Patient-Stated? Author [facility] Medication Compliance and Understanding Patient Facing Action Plan Yes Rekha Coburn [facility] Note: Reduction in use of SMILEY to 1-2 nebulizer treatments per day. Measured by: Patient report Time frame: 6 months documented as of this encounter Visit Diagnoses Not on filedocumented in this encounter Care Teams Magnetic Observer Relationship Specialty Start Date End Date Brandee Fuchs APRN PCP - General Family Medicine 01/17/19 documented as of this encounter
--- OUTSIDE RECORDS SUMMARY | 2024-05-14 03:36 | XMS_ITS | Encounter Summary ---
[place] [address] Care Team Providers Care Turning Machine Operator Name Role Phone Brandee Fuchs APRN Primary Care Provider [phone] Reason for Visit * Reason Comments Medication Management Patient Education Medication Refill Encounter Details Date Type Department Care Team (Late st Contact Info) Description 01/20/2021 Specialty [place] [address] Robina Stanford, [facility] Social History Tobacco Use Types [...] this encounter Progress Notes * Robina Apple [facility] - 01/20/2021 1:50 PM EDT Fasenra new [...] on filedocumented in this encounter Care Teams Turning Machine Operator Relationship Specialty Start Date End Date Brandee Fuchs APRN PCP - General Family Medicine 01/17/19 documented as of this encounter
--- OUTSIDE RECORDS SUMMARY | 2024-05-14 03:36 | XMS_ITS | Encounter Summary ---
[place] [address] Care Team Providers Care Shear Grinder Operator Name Role Phone Brandee Fuchs APRN Primary Care Provider [phone] Encounter Details Date Type Department Care Team (Late st Contact Info) Description 01/05/2021 Telephone [place] [phone] Robina Andujar Social History Tobacco Use Types Packs/Day Years [...] Type Associated Problems Recent Progress Patient-Stated? Author [facility] Medication Compliance and Understanding Patient Facing Action Plan Yes Rekha Coburn, [facility] Note: Reduction in use of SMILEY to 1-2 nebulizer treatments per day. Measured by: Patient report Time frame: 6 months documented as of this encounter Visit Diagnoses Not on filedocumented in this encounter Care Teams Shear Grinder Operator Relationship Specialty Start Date End Date Brandee Fuchs APRN PCP - General Family Medicine 01/17/19 documented as of this encounter
--- OUTSIDE RECORDS SUMMARY | 2024-05-14 03:36 | XMS_ITS | Encounter Summary ---
[place] [address] Care Team Providers Care Home Health Provider Name Role Phone Brandee Fuchs Obdulia GAMBLE Primary Care Provider [phone] Encounter Details Date Type Department Care Team (Latest Contact Info) Description 03/13/2021 10:30 AM EDT TH Visit (TeleHealth) [place] [address] [facility] [place] [address] CLEMENT (dyspnea on exertion); Severe persistent asthma, unspecified whether complicated; Environmental allergies; Fatigue, unspecified type; Fibromyalgia Social History Tobacco Use Types Packs/Day [...] Progress Notes * Nuha Dubon MD - 03/13/2021 10:30 AM EDT Images from the original note were not included. [facility] Section of Pulmonary and Critical Care Medicine Outpatient Consultation Date of Encounter: 03/13/2021 TELEHEALTH VISIT Patient identity was confirmed by name and date of at beginning of this telehealth visit. Patient was informed that this telehealth visit is a billable encounter and stated agreement to continue. The patient is at home in [place]. This visit was conducted by phone due [...] visit, however Malu requested to change to telephonevisit as she has been having a lot [...] (NASACORT OR NASACORT OTC) 55 mcg Aerosol, [place] 2 sprays by Nasal route daily. No [...] respiratory exacerbations. She is motivated to decrease prednisone now as she would like to try NSAIDs for her joint pain, and I recommended she step down to 8mg of prednisone daily now. She will receive [...] She would like to do this at [facility]. She is thinking about the covid19 vaccine; hasn't decided yet. I encouraged her that I believe the vaccine is safe and would significantly reduce her risk for severe respiratory illness if she is exposed to COVID-19. Summary Recommendations: - She will be starting fasenra this month, injections coordinated through her PCPs office - CXR now (at [facility]), new order placed - decrease to prednisone [...] of clinical time on day of visit. MD Narinder Guan [facility] PULMONOLOGY AT [facility] [address] Dept: [phone] Loc: [phone] documented in this encounter Plan of Treatment Not on file documented as of this encounter Goals Goal Patient Goal Type Associated Problems Recent Progress Patient-Stated? Author [facility] Medication Compliance and Understanding Patient Facing Action Plan Yes Rekha Coburn, [facility] Note: Reduction in use of SMILEY to 1-2 nebulizer treatments per day. Measured by: Patient report Time frame: 6 months documented as of this encounter Visit Diagnoses Diagnosis CLEMENT (dyspnea on exertion) Other dyspnea and respiratory abnormality Severe persistent asthma, unspecified whether complicated Environmental allergies Allergic rhinitis, cause unspecified Fatigue, unspecified type Fibromyalgia Mylagia and myositis, unspecified documented in this encounter Care Teams Home Health Provider Relationship Specialty Start Date End Date Brandee Fuchs APRN PCP - General Family Medicine 01/17/19 documented as of this encounter
--- OUTSIDE RECORDS SUMMARY | 2024-05-14 03:36 | XMS_ITS | Encounter Summary ---
Author Organization [facility] [place] [address] Care Team Providers Care Supervisor Cold Rolling Name Role Phone Brandee Fuchs Obdulia GAMBLE Primary Care Provider [phone] Encounter Details Date Type Department Care Team (Late st Contact Info) Description 06/23/2020 Telephone [place] [address] Nuha Dubon MD [facility] [address] Social History Tobacco Use Types Packs/Day Years [...] encounter Miscellaneous Notes * Telephone Encounter - Nuha Dubon MD - [...] with repeat PFTs to assess candidacy for additionalbiologic therapy. Nuha Dubon MD 06/23/2020 3:19 PM documented in this encounter Plan of Treatment Not on file documented as of this encounter Goals Goal Patient Goal Type Associated Problems Recent Progress Patient-Stated? Author [facility] Medication Compliance and Understanding Patient Facing Action Plan Yes Rekha Coburn, [facility] Note: Reduction in use of SMILEY to 1-2 nebulizer treatments per day. Measured by: Patient report Time frame: 6 months documented as of this encounter Visit Diagnoses Not on filedocumented in this encounter Care Teams Supervisor Cold Rolling Relationship Specialty Start Date End Date Brandee Fuchs APRN PCP - General Family Medicine 01/17/19 documented as of this encounter
--- OUTSIDE RECORDS SUMMARY | 2024-05-14 03:36 | XMS_ITS | Encounter Summary ---
[place] [address] Care Team Providers Care Religious Ritual Slaughterer Name Role Phone Daniellino Brandee Steiner APRN Primary Care Provider [phone] Encounter Details Date Type Department Care Team (Late st Contact Info) Description 07/08/2020 [place] [phone] Jaimie Simmons LNA Social History Tobacco Use [...] Type Associated Problems Recent Progress Patient-Stated? Author [facility] Medication Compliance and Understanding Patient Facing Action Plan Yes Rekha Coburn, [facility] Note: Reduction in use of SMILEY to 1-2 nebulizer treatments per day. Measured by: Patient report Time frame: 6 months documented as of this encounter Visit Diagnoses Not on filedocumented in this encounter Care Teams Religious Ritual Slaughterer Relationship Specialty Start Date End Date Brandee Fuchs APRN PCP - General Family Medicine 01/17/19 documented as of this encounter
--- OUTSIDE RECORDS SUMMARY | 2024-05-14 03:36 | XMS_ITS | Encounter Summary ---
[place] [address] Care Team Providers Care Senior Master Scheduler Name Role Phone Daniellino Brandee Steiner APRN Primary Care Provider [phone] Encounter Details Date Type Department Care Team (Late st Contact Info) Description 06/30/2020 Orders Only [facility] [place] [address] [place] [address] Emma Johnson MD [facility] [place] [address] Social History Tobacco Use Types Packs/Day Years [...] as of this encounter Progress Notes * Emma Johnson MD - 06/30/2020 1:06 PM [...] filedocumented in this encounter Care Teams Senior Master Scheduler Relationship Specialty Start Date End Date Brandee Fuchs APRN PCP - General Family Medicine 01/17/19 documented as of this encounter
--- OUTSIDE RECORDS SUMMARY | 2024-05-14 03:36 | XMS_ITS | Encounter Summary ---
[place] [address] Care Team Providers Care Supervisor Color Making Name Role Phone Brandee Fuchs APRN Primary Care Provider [phone] Encounter Details Date Type Department Care Team (Late st Contact Info) Description 09/11/2020 Telephone [place] [phone] Silvano Lares Social History Tobacco Use Types [...] * Telephone Encounter - Silvano Lares - 09/11/2020 4:26 PM EST LMOAM X1 to schedule 3 month f/u (telehealth) with Dr. Dubon. documented in this encounter Plan of Treatment Not on file documented as of this encounter Goals Goal Patient Goal Type Associated Problems Recent Progress Patient-Stated? Author [facility] Medication Compliance and Understanding Patient Facing Action Plan Yes Rekha Coburn, [facility] Note: Reduction in use of SMILEY to 1-2 nebulizer treatments per day. Measured by: Patient report Time frame: 6 months documented as of this encounter Visit Diagnoses Not on filedocumented in this encounter Care Teams Supervisor Color Making Relationship Specialty Start Date End Date Brandee Fuchs APRN PCP - General Family Medicine 01/17/19 documented as of this encounter
--- OUTSIDE RECORDS SUMMARY | 2024-05-14 03:36 | XMS_ITS | Encounter Summary ---
[place] [address] Care Team Providers Care Control Systems Drafting Officer Name Role Phone Daniellino Brandee Steiner APRN Primary Care Provider [phone] Reason for Visit * Reason Comments Prior Authorization Fasenra Pen 30mg/mL Encounter Details Date Type Department Care Team (Late st Contact Info) Description 06/25/2020 Specialty [place] [address] Isabella Price, [facility] Social History Tobacco Use Types [...] Progress Notes * Isabella Chairez - 06/25/2020 3:08 PM EDT [facility], Medication Prior Authorization Patient: Malu De Patient : 1975 Patient Address: [address] [place] [id number] (home) Medication Name: FASENRA PEN 30 MG/ML SUBCUTANEOUS AUTO-INJECTOR Medication ID: [id number] Patient [place] [facility] Patient Location Comment: Subscriber Insurance: [place] Medicaid Subscriber Insurance Comment: Fax: Physician: HELEN RODGERS Physician Comment: Sent Via: Fax More[place]: Ref/Pranav/PA#: Medication Strength Frequency Requested: Inject 30mg subcutaneously every 28 days for the first three doses, then every 56 days. Qty/Day Supply: 11/06 New Start: New to Therapy Diagnosis & ICD-10 Code: Severe persistent asthma J45.51 Patient Notified: No Submission Notes: None * Isabella Chairez - 06/25/2020 3:08 PM EDT [facility], Prior Authorization Approval Medication Name: FASENRA PEN 30 MG/ML SUBCUTANEOUS AUTO-INJECTOR Medication ID: [id number] Fillable at [facility]: Yes Approval Dates: 06/25/2020 to 09/24/2020 Insurance requirements/notes: None Other Notes: A limited 3 month approval is authorized. For continuation of therapy after the initial 3 month authorization, the patient must continue to receive therapy with both an ICS and a controller medication (LABA or LTRA) AND have either a decreased frequency of exacerbations OR decreased use of maintenance or corticosteroids OR reduction in the signs/symptoms of asthma OR an increase in predicted FEV1 from baseline. Case/Reference #: [id number] Approval notification Received via: Fax Copay: $3.00 Copay assistance: None Copay Notes: Patient is not eligible for a copay card since she has medicaid. Insurance mandated Pharmacy: [facility] Pharmacy staff will be reaching out to the patient to inform them of their medication's approval by[employer] health insurance. If applicable, a pharmacist will speak [...] Action Plan Yes Rekha Coburn, [facility] Note: Reduction in use of SMILEY to 1-2 nebulizer treatments per day. Measured by: Patient report Time frame: 6 months documented as of this encounter Visit Diagnoses Not on filedocumented in this encounter Care Teams Control Systems Drafting Officer Relationship Specialty Start Date End Date Brandee Fuchs APRN PCP - General Family Medicine 01/17/19 documented as of this encounter
--- OUTSIDE RECORDS SUMMARY | 2024-05-14 03:36 | XMS_ITS | Encounter Summary ---
[place] [address] Care Team Providers Care Weight Loss Consultant Name Role Phone DaniellinoBrandee APRN Primary Care Provider [phone] Reason for Visit * Reason Comments Specialty Pharmacy Review Encounter Details Date Type Department Care Team (Late st Contact Info) Description 08/06/2020 Specialty [place] [address] Isabella Price, [facility] Social History Tobacco Use Types Packs/Day Years [...] Chairez - 08/06/2020 11:59 PM EDT The [facility] has completed a benefits investigation for Malu De to review their eligibility to fill at [facility]. Per patient's medication list they are prescribed Dupixent and Dupixent is able to be filled at the [facility]. documented in this encounter Plan [...] on filedocumented in this encounter Care Teams Weight Loss Consultant Relationship Specialty Start Date End Date Brandee Fuchs, MAVIS PCP - General Family Medicine 01/17/19 documented as of this encounter
--- OUTSIDE RECORDS SUMMARY | 2024-05-14 03:36 | XMS_ITS | Encounter Summary ---
[place] [address] Care Team Providers Care Credit Negotiator Name Role Phone Brandee Fuchs Obdulia GAMBLE Primary Care Provider [phone] Encounter Details Date Type Department Care Team (Latest Contact Info) Description 08/06/2020 10:30 AM EDT TH Visit (TeleHealth) [place] [address] Nuha Dubon MD [facility] [address] Severe persistent asthma, unspecified whether complicated; Environmental allergies; Other eosinophilia; Rash Social History Tobacco Use Types Packs/Day [...] Progress Notes * Nuha Dubon MD - 08/06/2020 10:30 AM EDT Images from the original note were not included. [facility] Section of Pulmonary and Critical Care Medicine Outpatient Consultation Date of Encounter: 08/06/2020 TELEHEALTH VISIT Patient identity was confirmed at the beginning of this telehealth visit. Patient is aware this telehealth visit is a billable encounter and stated agreement to continue. The patient is at home in [place]. This visit was conducted by phone due [...] going for a walk she carries her portable nebulizer with her and needs to use this [...] they flare, did blister months ago, sometimes occurring in arm and leg at different times; we initially associated these rashes with dupixent, but she stopped this medication back in June. Rash is always in the same two locations. Currently rash isalmost resolved. She occasionally has diffuse joint pains (has for a long time, associated with fibromyalgia; but seems to be a bit progressive over time, especially in hip joints with exercise) but denies any pain or swelling of joints associated with the knee or elbow where these rashes are located. She continues to follow with rheumatology. Otherwise her health has been stable. She denies any ED visits, acute exacerbations of breathing, or additional prednisone courses since we last prescribed this [...] following Iron infusion. 9 tablet 0 ??? dupilumab [...] Take 1 hour prior to oral iron. (Patient not [...] (NASACORT OR NASACORT OTC) 55 mcg Aerosol, [place] 2 sprays by Nasal route daily. No [...] airflow obstruction on previous PFTs. She has unfortunately not perceived significant symptom benefit from a trial of dupixent biologic therapy, and has had areas of skin redness concerning for possible reaction to this medication. We have stopped dupixent. After her rashes are fully resolved I would recommend we try an alternative biologic therapy such as benralizumab, with the hope that this will improve her chronic asthma control and reduce risk for future asthma exacerbations requiring oral steroids. There [...] of developing chronic airflow obstruction from asthma. Johan start prednisone 10 mg po daily. We discussed the potential risk of hyperglycemia from chronic steroids. She will continue on triple inhaled therapy [...] assess insurance coverage; would not recommend starting thisuntil after her rash resolves, likely after next [...] of clinical time. Nuha Dubon MD [facility] P[facility] AT [facility] [address] Dept: [phone] Loc: [phone] documented in this encounter Plan of Treatment [...] eruption documented in this encounter Care Teams Credit Negotiator Relationship Specialty Start Date End Date Brandee Fuchs, MAVIS PCP - General Family Medicine 01/17/19 documented as of this encounter
--- OUTSIDE RECORDS SUMMARY | 2024-05-14 03:36 | XMS_ITS | Encounter Summary ---
[place] [address] Care Team Providers Care Events Assistant Name Role Phone Brandee Fuchs APRN Primary Care Provider [phone] Encounter Details Date Type Department Care Team (Late st Contact Info) Description 01/19/2021 Telephone [place] [phone] Jodi Nieves Social History Tobacco Use Types [...] Type Associated Problems Recent Progress Patient-Stated? Author [facility] Medication Compliance and Understanding Patient Facing Action Plan Yes Rekha Coburn, [facility] Note: Reduction in use of SMILEY to 1-2 nebulizer treatments per day. Measured by: Patient report Time frame: 6 months documented as of this encounter Visit Diagnoses Not on filedocumented in this encounter Care Teams Events Assistant Relationship Specialty Start Date End Date Brandee Fuchs APRN PCP - General Family Medicine 01/17/19 documented as of this encounter
--- OUTSIDE RECORDS SUMMARY | 2024-05-14 03:36 | XMS_ITS | Encounter Summary ---
Author Organization [facility] [place] [address] Care Team Providers Care Chute Greaser Name Role Phone DanielBrandee huynh Obdulia GAMBLE Primary Care Provider [phone] Encounter Details Date Type Department Care Team (Late st Contact Info) Description 04/02/2021 [place] [address] Nuha Dubon MD [facility] [place] [address] Social History Tobacco Use Types Packs/Day Years [...] her know, however her phone went to [employer]. I left a generic message indicating that results were reassuring and that I would not recommend any changes in plan right now, andthat she is welcome to call with any questions or to discuss further. Nuha Dubon MD documented in this encounter Plan of Treatment Not on file documented as of this encounter Goals Goal Patient Goal Type Associated Problems Recent Progress Patient-Stated? Author [facility] Medication Compliance and Understanding Patient Facing Action Plan Yes Rekha Coburn, [facility] Note: Reduction in use of SMILEY to 1-2 nebulizer treatments per day. Measured by: Patient report Time frame: 6 months documented as of this encounter Visit Diagnoses Not on filedocumented in this encounter Care Teams Chute Greaser Relationship Specialty Start Date End Date Brandee Fuchs APRN PCP - General Family Medicine 01/17/19 documented as of this encounter
--- OUTSIDE RECORDS SUMMARY | 2024-05-14 03:36 | XMS_ITS | Encounter Summary ---
[place] [address] Care Team Providers Care Ice Cream Vendor Name Role Phone Brandee Fuchs Obdulia GAMBLE Primary Care Provider [phone] Encounter Details Date Type Department Care Team (Latest Contact Info) Description 12/29/2020 10:30 AM EDT TH Visit (TeleHealth) [place] [address] Nuha Dubon MD [facility] [place] [address] Severe persistent asthma, unspecified whether complicated; Environmental allergies; CLEMENT (dyspnea on exertion) Social History Tobacco Use Types Packs/Day Years [...] Progress Notes * Nuha Dubon MD - 12/29/2020 10:30 AM EDT Images from the original note were not included. [facility] Section of Pulmonary and Critical Care Medicine Outpatient Consultation Date of Encounter: 12/29/2020 TELEHEALTH VISIT Patient identity was confirmed at beginning of this telehealth visit. Patient was informed that this telehealth visit is a billable encounter and stated agreement to continue. The patient is at home in [place]. This visit was conducted by phone due [...] had acute flares or ED visits while onchronic low-dose prednisone. She occasionally has had high [...] (NASACORT OR NASACORT OTC) 55 mcg Aerosol, [place] 2 sprays by Nasal route daily. ??? [...] burst therapy. It seems her acute flares have been much better controlled while on low dose [...] I think could provide sustained improvement in herasthma with less risk for DM/osteoporosis than chronic prednisone, however Mrs. De remains very nervous about trying a new medication. She was open to hearing more about this from our specialty pharmacists, and I will ask them to reach out to her about this. She knows this is an option to try atany time when she is ready. We also [...] on day of visit. Nuha Dubon MD [facility] AT [facility] [address] Dept: [phone] Loc: [phone] documented in this encounter Plan of Treatment [...] months documented as of this encounter Results * Pulmonary Function Testing [...] / FVC LLN 71 % COMPAS PFT [id number] Actual Pre-BD 2.28 L/s COMPAS PFT NKA69-60 Pre-BD % of Predicted 81 % COMPAS PFT MUX15-25 Predicted 2.83 L/s COMPAS PFT OMY25-47 Pre-BD Z-Score -0.73 COMPAS PFT DLCO Hb [...] abnormality Severe persistent asthma, unspecified whether complicated documented in this encounter Care Teams Ice Cream Vendor Relationship Specialty Start Date End Date Brandee Fuchs, MAVIS PCP - General Family Medicine 01/17/19 documented as of this encounter
--- OUTSIDE RECORDS SUMMARY | 2024-05-14 03:36 | XMS_ITS | Encounter Summary ---
[place] [address] Care Team Providers Care Medical Director Occupational Health Name Role Phone Brandee Fuchs APRN Primary Care Provider Encounter Details Date Type Department Care Team (Late st Contact Info) Description 03/12/2021 Tele[place] [phone] Letha Diaz Social History Tobacco Use Types [...] Type Associated Problems Recent Progress Patient-Stated? Author [facility] Medication Compliance and Understanding Patient Facing Action Plan Yes Rekha Coburn, [facility] Note: Reduction in use of SMILEY to 1-2 nebulizer treatments per day. Measured by: Patient report Time frame: 6 months documented as of this encounter Visit Diagnoses Not on filedocumented in this encounter Care Teams Medical Director Occupational Health Relationship Specialty Start Date End Date Brandee Fuchs APRN PCP - General Family Medicine 01/17/19 documented as of this encounter
--- OUTSIDE RECORDS SUMMARY | 2024-05-14 03:36 | XMS_ITS | Encounter Summary ---
[place] [address] Care Team Providers Care Plant Taxonomy Teacher Name Role Phone Daniellino Brandee Steiner APRN Primary Care Provider [phone] Reason for Visit * Reason Onset Date Comments Other 03/23/2021 Encounter Details Date Type Department Care Team (Late st Contact Info) Description 03/23/2021 [place] [address] Lam Mcintyre, RN Other Social History Tobacco Use Types Packs/Day Years [...] encounter Miscellaneous Notes * Telephone Encounter - Lam Mcintyre RN - 03/23/2021 8:51 AM EDT RTC to Malu and left a message with a call back number. documented in this encounter Plan of Treatment Not on file documented as of this encounter Goals Goal Patient Goal Type Associated Problems Recent Progress Patient-Stated? Author [facility] Medication Compliance and Understanding Patient Facing Action Plan Yes Rekha Coburn, [facility] Note: Reduction in use of SMILEY to 1-2 nebulizer treatments per day. Measured by: Patient report Time frame: 6 months documented as of this encounter Visit Diagnoses Not on filedocumented in this encounter Care Teams Plant Taxonomy Teacher Relationship Specialty Start Date End Date Brandee Fuchs APRN PCP - General Family Medicine 01/17/19 documented as of this encounter
--- OUTSIDE RECORDS SUMMARY | 2024-05-14 03:36 | XMS_ITS | Encounter Summary ---
[place] [address] Care Team Providers Care Financial Representative Name Role Phone Daniellino Brandee Steiner APRN Primary Care Provider [phone] Reason for Visit * Reason Comments Specialty Pharmacy Review Encounter Details Date Type Department Care Team (Late st Contact Info) Description 12/26/2020 Specialty [place] [address] Isabella Price, [facility] Social History Tobacco Use Types Packs/Day Years [...] encounter Progress Notes * Isabella Chairez - 12/26/2020 11:59 PM EDT The - Specialty Pharmacy has completed a benefits investigation for Malu De to review their eligibility to fill at [facility]. Per patient's medication list [...] on filedocumented in this encounter Care Teams Financial Representative Relationship Specialty Start Date End Date Brandee Fuchs APRN PCP - General Family Medicine 01/17/19 documented as of this encounter
--- OUTSIDE RECORDS SUMMARY | 2024-05-14 03:37 | XMS_ITS | Encounter Summary ---
[place] [address] Care Team Providers Care Cheese Wrapper Name Role Phone Barndee Fuchs APRN Primary Care Provider [phone] Reason for Visit * Reason Comments Specialty Pharmacy Review Encounter Details Date Type Department Care Team (Late st Contact Info) Description 04/10/2020 Specialty Pharm[place] [address] Isabella Price, [facility] Social History Tobacco Use Types Packs/Day Years [...] Type Associated Problems Recent Progress Patient-Stated? Author [facility] Medication Compliance and Understanding Patient Facing Action Plan Yes Rekha Coburn, [facility] Note: Reduction in use of SMILEY to 1-2 nebulizer treatments per day. Measured by: Patient report Time frame: 6 months documented as of this encounter Visit Diagnoses Not on filedocumented in this encounter Care Teams Cheese Wrapper Relationship Specialty Start Date End Date Brandee Fuchs APRN PCP - General Family Medicine 01/17/19 documented as of this encounter
--- OUTSIDE RECORDS SUMMARY | 2024-05-14 03:37 | XMS_ITS | Encounter Summary ---
[place] [address] Care Team Providers Care Tie Tamper Name Role Phone Brandee Fuchs APRN Primary Care Provider [phone] Encounter Details Date Type Department Care Team (Late st Contact Info) Description 03/14/2020 Telephone [facility] [place] [address] Liliana Thomas Social History Tobacco Use Types Packs/Day Years [...] encounter Miscellaneous Notes * Telephone Encounter - Liliana Thomas - 03/14/2020 4:17 PM EDT LVM to schedule on 03/24/20 @2:30 for 60 min in clinic visit per DMP documented in this encounter Plan of Treatment Not on file documented as of this encounter Visit Diagnoses Not on filedocumented in this encounter Care Teams Tie Tamper Relationship Specialty Start Date End Date Brandee Fuchs APRN PCP - General Family Medicine 01/17/19 documented as of this encounter
--- OUTSIDE RECORDS SUMMARY | 2024-05-14 03:37 | XMS_ITS | Encounter Summary ---
[place] [address] Care Team Providers Care Pharmacy Manager Name Role Phone Daniellino Brandee Steiner APRN Primary Care Provider [phone] Reason for Visit * Reason Comments Medication Management Patient Education Encounter Details Date Type Department Care Team (Late st Contact Info) Description 04/10/2020 Specialty [place] [address] Rekha Coburn RPH Social History Tobacco Use Types Packs/Day [...] as of this encounter Progress Notes * Rekha Villanueva RPH - 04/10/2020 4:32 PM [...] no prior injection experience, the patient declined inoffice training on the basis of travel time to [facility]. She was encouraged to watch instructive videos on Dupixent injections online and to reach out to schedule in office training should she feel uncomfortable after viewing. Currently the patient is going through a difficult time due to the lossof her daughter, but she feels she is adequately supported at this time. Given the recent loss, thepatient health questionnaire was not performed during the [...] Mental alterations ??? Gabapentin Other (See Comments) [place] like body was shaking, nerves vibrating, hands went numb ??? Indomethacin ??? Tramadol Other (See Comments) Anxiety, foggy head, unaware ??? Vicodin [Hydrocodone-Acetaminophen] Mouth blisters Special Dietary or Hydration Requirements: no There is no height or weight on file to calculate BMI. Medication Reconciliation Discrepancies (compared to [facility] med list) -None Medication List: Current Outpatient [...] (NASACORT OR NASACORT OTC) 55 mcg Aerosol, [place] 2 sprays by Nasal route daily. No [...] Office Visit from 12/14/2019 [facility] [place] [facility] [place] Results FEV1 (L) 1.63 liters FEV1 [...] importance of adherence and management strategies, side effectavoidance and mitigation strategies, and interruptions in therapy: Yes Physical and Cognitive Assessment: Functional limitations identified: no Cognitive limitations identified: no Concern regarding orientation/memory: no Concern with reasoning/judgement: no Is patient a fall risk: no Other needed information: yes - Patient currently grieving her child after losing her in a car accident Social Assessment: Does the patient have a primary care giver? no Patient has emergency contact on file: Yes Does patient need referral to social services analyst: No Does patient need referral to advocacy [...] mg subcutaneously for one dose and then 300mg every 14 days thereafter Appropriate Therapy: Yes [...] Goals: Patient's specific desired goal: Goals ??? DH Home Medication Compliance and Understanding (pt-stated) Reduction [...] were made at the appointment and [facility] (summary located at top [...] on filedocumented in this encounter Care Teams Pharmacy Manager Relationship Specialty Start Date End Date Brandee Fuchs APRN PCP - General Family Medicine 01/17/19 documented as of this encounter
--- OUTSIDE RECORDS SUMMARY | 2024-05-14 03:37 | XMS_ITS | Encounter Summary ---
Author Organization [facility] [place] [address] Care Team Providers Care Senior Buyer Planner Name Role Phone Brandee Fuchs APRN Primary Care Provider [phone] Encounter Details Date Type Department Care Team (Late st Contact Info) Description 04/17/2020 Telephone Sleep Center at [facility] [address] [place] [address] Wendy Webb Social History Tobacco Use Types [...] * Telephone Encounter - Wendy Webb - 04/17/2020 [...] filedocumented in this encounter Care Teams Senior Buyer Planner Relationship Specialty Start Date End Date Brandee Fuchs APRN PCP - General Family Medicine 01/17/19 documented as of this encounter
--- OUTSIDE RECORDS SUMMARY | 2024-05-14 03:37 | XMS_ITS | Encounter Summary ---
Author Organization [facility]ly [facility] [place] [address] Care Team Providers Care Medical Record Clerk Name Role Phone Brandee Fuchs APRN Primary Care Provider [phone] Reason for Referral * Psychiatric (Routine) - Closed Specialty Diagnoses / Procedures Referred By Contac t Referred To Contact [facility] and Sp[facility] Center Diagnoses Fibromyalgia PNE - 15 min TOV *okay to schedule Rick Reynaga MD [facility] [place] [address] Jodi Mckeon PsyD [facility] [place] [address] Referral ID Status Reason Start Date Expiration Date V isits Requested Visits Authorized [id number] Closed Consult, Test & Treat 11/29/2019 11/28/2020 1 1 Reason for Visit * Reason Comments Pain Management new patient, fibromy algia * Consultation (Routine) - Specialty Diagnoses / Procedures Referred By Contac t Referred To Contact [facility] and Spine Center Diagnoses Hypermobility arthralgia Fibromyalgia Pain - Fibromyalgia/ hypermobility arthralgia/ ?low dose suboxone *attending/fellow Berkley Hernández APRN [facility] [place] [address] [facility] [place] [address] Referral ID Status Reason Start Date Expiration Date V isits Requested Visits Authorized [id number] Consult, Test & Treat 11/02/2019 11/01/2020 1 1 Encounter Details Date Type Department Care Team (Late st Contact Info) Description 11/29/2019 2:30 PM EST Office Visit [place] [address] Lacho Springer MD [facility] [address] PAIN [place] [address] Rick Reynaga MD [facility] [place] [address] Fibromyalgia Social History Tobacco Use Types Packs/Day [...] documented in this encounter Progress Notes * Rick Reynaga MD - 11/29/2019 2:30 PM EST [facility] Initial Consultation Note DOS: 11/29/19 : 1975 Malu De is a 44 y.o. year old female with a PMH including fibromyalgia, joint hypermobilitysyndrome, who presents to the pain clinic today at the referral of Berkley Hernández APRN [facility] [place] [address] for consultation regarding chronic diffuse pain CC: Chief Complaint Patient presents with ??? Pain Management new patient, fibromyalgia HPI: Malu De is a 44 yo woman with a history of fibromyalgia and joint hypermobility syndrome who presents for initial evaluation of chronic diffuse pain [...] mechanism of action as gabapentin. Has never triedSavella. She notes that her pain as gotten [...] file Gets together: Not on file Attends druze service: Not on file Active member of [...] tablet by mouth 2 times daily (after meals).(Patient taking differently: Take 325 mg by mouth three times a week. Takes 1 tab every other day),Disp: 180 tablet, Rfl: 3 ??? albuterol (PROVENTIL) 2.5 mg /3 mL (0.083 %) Solution for Nebulization, Take 2.5 mg by nebulization as needed., Disp: , Rfl: 0 ??? montelukast (SINGULAIR) 10 mg Tablet, Take 10 mg by mouth daily., Disp: , Rfl: 0 ??? omeprazole (PRILOSEC) 40 mg Capsule, Delayed Release(E.C.), Take 40 mg by mouth daily., Disp: ,Rfl: 0 ??? BREO ELLIPTA 200-25 mcg/dose Disk with Device, Inhale 1 puff into the lungs daily., Disp: , Rfl: 1 ??? SPIRIVA RESPIMAT 1.25 mcg/actuation Mist, Inhale 2 puffs into the lungs daily., Disp: , Rfl: 1 ??? triamcinolone (NASACORT OR NASACORT OTC) 55 mcg Aerosol, [place], 2 sprays by Nasal route daily.,Disp: , Rfl: ALLERGIES: Allergies Allergen Reactions ??? Acetaminophen Mouth blisters ??? Amitriptyline Anxiety ??? Cyclobenzaprine Other (See Comments) Small blisters ??? Cymbalta [Duloxetine] Anxiety ??? Gabapentin Other (See Comments) [place] like body was shaking, nerves vibrating, hands [...] - normal in spine and shoulders Neurologic: piece dyer - grossly intact Reflexes - 2+ and [...] years. Reports difficulty participating in recreational activities andprolonged sitting. -Patient has already tried cymbalta and [...] consider a trial of low dose naltrexone (Instructionsfor commencing low dose naltrexone therapy are the following: Take one 1.5mg capsule QD for 7 days.If pain relief is unsatisfactory then increase to 2 1.5mg capsules per day. After 14 days if pain relief is inadequate then increase to 3 capsules per day). -May consider addition of a prescription strength NSAID such as meloxicam to assist with pain control -Patient endorsing some dysphoria, hopelessness about her pain and functional limitations. I will be placing a referral to our pain psychologist Dr. Jodi Mckeon to assist patient with coping strategies2 Thank you for allowing us the opportunity to participate in Ms. Espinosa's care. Rick Reynaga MD [facility] Pain Medicine Fellow Seen and discussed with supervising attending Dr. Springer who is in agreement with the above assessment and plan. CC: Berkley Hernández, [facility] [place] [id number] Attending Note: Patient is a 44 yo female with diffuse body pain, fibromyalgia with reassuring physical examinationtoday. She has tried gabapentin and cymbalta without [...] relief. Please see fellow's note for details. Lacho Springer MD Attending physician Pain Management documented in this encounter Miscellaneous Notes * Addendum Note - Lacho Springer MD - 11/29/2019 2:30 PM ESTAddended by: LACHO SPRINGER on: 11/30/2019 08:20 AM Modules accepted: Level of Service documented in this encounter Plan of Treatment Scheduled Referrals Name Type Priority Associated Diagnoses Order Schedule Referral to Psychology Outpatient Referral Routine Fibromyalgia Ordered: 11/29/2019 documented as of this encounter Visit Diagnoses Diagnosis Fibromyalgia Mylagia and myositis, unspecified documented in this encounter Care Teams Medical Record Clerk Relationship Specialty Start Date End Date Brandee Fuchs, DIGITAL ANALYST PCP - General Family Medicine 01/17/19 documented as of this encounter
--- OUTSIDE RECORDS SUMMARY | 2024-05-14 03:37 | XMS_ITS | Encounter Summary ---
Author Organization [facility] [place] [address] Care Team Providers Care Wafer Abrading Machine Tender Name Role Phone Brandee Fuchs APRN Primary Care Provider [phone] Encounter Details Date Type Department Care Team (Late st Contact Info) Description 02/20/2020 Telephone Hematology/Oncology at [address] [phone] Alyssa Darling Social History Tobacco Use Types Packs/Day Years [...] encounter Miscellaneous Notes * Telephone Encounter - Alyssa Darilng - 02/20/2020 1:37 PM EDT Called Malu to inform her of the following: As a new precaution with COVID-19 we are calling all patients before they come in for their appointment to screen for any potential symptoms. 1. EXPOSURE: ???Have you been in contact with anyone suspected or confirmed to have COVID-19 in thepast 14 days??? No 2. Do you have [...] before coming in. Malu was test at [facility] the last week of January. It was negative. Malu states she has not been out of the state in the past 30 day. documented in this encounter Plan of Treatment Not on file documented as of this encounter Visit Diagnoses Not on filedocumented in this encounter Care Teams Wafer Abrading Machine Tender Relationship Specialty Start Date End Date Brandee Fuchs APRN PCP - General Family Medicine 01/17/19 documented as of this encounter
--- OUTSIDE RECORDS SUMMARY | 2024-05-14 03:37 | XMS_ITS | Encounter Summary ---
Author Organization [facility] [place] [address] Care Team Providers Care Digital Printer Operator Name Role Phone Brandee Fuchs APRN Primary Care Provider [phone] Encounter Details Date Type Department Care Team (Late st Contact Info) Description 04/22/2020 Telephone [place] [phone] Alyssa Barnhart Social History Tobacco Use Types Packs/Day Years [...] Miscellaneous Notes * Telephone Encounter - Alyssa Barnhart - 04/22/2020 4:49 PM EDT Called patient to reschedule 04/29 with DMP (conflict in schedule), I offered held times on 04/28 and04/30. Patient was upset saying that she could not tolerate 2 trips to [facility] as she had appointment with Rheumatology on 04/29 also, they have converted her appointment to TOV. Patient wants TOV for Jodi also told her that was not possible as DMP would like to see pt in clinic. At this point she has ca ncelled apt with DMP and will call to reschedule. Patient was also upset that her original TOV withDana (see 03/24 Office Notes) was never scheduled. She was insistent that DMP was to call her every week. documented in this encounter Plan of Treatment [...] on filedocumented in this encounter Care Teams Digital Printer Operator Relationship Specialty Start Date End Date Brandee Fuchs APRN PCP - General Family Medicine 01/17/19 documented as of this encounter
--- OUTSIDE RECORDS SUMMARY | 2024-05-14 03:37 | XMS_ITS | Encounter Summary ---
Author Organization [facility] [place] [address] Care Team Providers Care Router Tender Name Role Phone DanielQue huynhdee Huynh APRN Primary Care Provider [phone] Encounter Details Date Type Department Care Team (Latest Contact Info) Description 12/14/2019 12:22 PM EST - 12/14/2019 11:59 PM [facility] Hospital [place] [address] Moderate persistent asthma, unspecified whether complicated Discharge Disposition: [...] Dispensed Refills Start Date End Date cholecalciferol, Vitamin D3, 1,000 unit Capsule Take [...] (NASACORT OR NASACORT OTC) 55 mcg Aerosol, [place] 2 sprays by Nasal route daily. polyethylene glycol (Miralax) 17 gram/dose Powder as needed. 10/26/2019 06/26/2020 ferrous sulfate 325 mg (65 mg iron) Tablet Take 1 tablet by mouth 2 times daily (after meals). 180 tablet 3 01/11/2017 06/26/2020 documented as of this encounter Procedure Notes * Mariam Gonzales MD - 12/14/2019 11:59 PM ESTAssociated Order(s): PULMONARY FUNCTION TEST Pulmonary Function Test Interpretation FEV1 is reduced. FVC is reduced. The FEV1/FVC ratio is normal. Impression: [x] Moderate restrictive ventilatory defect (FVC 60-69%) Significant bronchodilator responsiveness present. Mariam Gonzales MD documented in this encounter Plan of Treatment Not on file documented as of this encounter Procedures Procedure Name Priority Date/Time Associated Diagnosis Comments COMMON PULMONARY FUNCTION TEST Routine 12/14/2019 11:59 PM EST Moderate persistent asthma, unspecified whether complicated documented in this encounter Results * Pulmonary Function Testing (12/14/2019 11:59 PM EST) Narrative Mariam Gonzales MD - 12/14/2019 11:59 PM EST Mariam Gonzales MD ? 12/16/2019 11:36 PM Pulmonary Function Test Interpretation FEV1 is reduced. ??FVC is reduced. ??The FEV1/FVC ratio is normal. Impression: [x] Moderate restrictive ventilatory defect (FVC 60-69%) Significant bronchodilator responsiveness present. Mariam Gonzales MD Nuha Dubon MD PFT ORDERABLES documented in this encounter Visit Diagnoses Diagnosis Moderate persistent asthma, unspecified whether complicated documented in this encounter Care Teams Router Tender Relationship Specialty Start Date End Date Brandee Fuchs, ENVIRONMENTAL ADVISOR PCP - General Family Medicine 01/17/19 documented as of this encounter
--- OUTSIDE RECORDS SUMMARY | 2024-05-14 03:37 | XMS_ITS | Encounter Summary ---
Author Organization Formerly [facility] Address [facility] [place] [address] Care Team Providers Care Edge Bonder Name Role Phone Daniellino Brandee Steiner APRN Primary Care Provider [phone] Reason for Visit * Consultation (Routine) - Specialty Diagnoses / Procedures Referred By Adryan marin Referred To Contact Sleep Center Diagnoses Snoring Procedures PRG HOME SLEEP TEST TYPE 3 PORTABLE Emma Johnson MD [facility] [place] [address] [facility] Sleep Medicine [address] [place] [address] Referral ID Status Reason Start Date Expiration Date V isits Requested Visits Authorized [id number] Test Only 02/27/2020 02/26/2021 1 1 Encounter Details Date Type Department Care Team (Late st Contact Info) Description 03/24/2020 9:00 AM EDT Procedure visit Sleep Center at [facility] [address] [place] [address] Social History Tobacco Use Types Packs/Day Years [...] this encounter Patient Instructions * Patient Instructions* Trudi Monson - 03/24/2020 9:00 AM EDT Failed Study due to not enough recording time. documented in this encounter Plan of Treatment Scheduled Referrals Name Type Priority Associated Diagnoses Orde r Schedule Referral to Sleep Disorders Center Outpatient Referral Routine Snoring Ordered: 02/27/2020 documented as of this encounter Goals Goal [...] on filedocumented in this encounter Care Teams Edge Bonder Relationship Specialty Start Date End Date Brandee Fuchs APRN PCP - General Family Medicine 01/17/19 documented as of this encounter
--- OUTSIDE RECORDS SUMMARY | 2024-05-14 03:37 | XMS_ITS | Encounter Summary ---
[place] [address] Care Team Providers Care Cattle Feeder Name Role Phone Brandee Fuchs APRN Primary Care Provider [phone] Reason for Visit * Reason Onset Date Comments Appointment 01/16/2020 Encounter Details Date Type Department Care Team (Late st Contact Info) Description 01/16/2020 Telephone [place] [address] Kayla Baird, [facility] Appointment Social History Tobacco Use Types Packs/Day Years [...] encounter Miscellaneous Notes * Telephone Encounter - Kayla Baird - 01/16/2020 10:31 AM EDT LEFT VOICE MESSAGE FOR MALU TO RTN CALL TO CONFIRM 01-23-20 OV IS BEING CHANGED TO PHONE CALL OV OR TELEHEALTH documented in this encounter Plan of Treatment Not on file documented as of this encounter Visit Diagnoses Not on filedocumented in this encounter Care Teams Cattle Feeder Relationship Specialty Start Date End Date Brandee Fuchs, MAVIS PCP - General Family Medicine 01/17/19 documented as of this encounter
--- OUTSIDE RECORDS SUMMARY | 2024-05-14 03:37 | XMS_ITS | Encounter Summary ---
Author Organization [facility] [place] [address] Care Team Providers Care Site Director Name Role Phone Brandee Fuchs APRN Primary Care Provider [phone] Encounter Details Date Type Department Care Team (Late st Contact Info) Description 02/21/2020 Orders Only Hematology [place] [address] Ashok Hernandez MD [facility] [place] [address] Social History Tobacco Use Types Packs/Day Years [...] on filedocumented in this encounter Care Teams Site Director Relationship Specialty Start Date End Date Brandee Fuchs APRN PCP - General Family Medicine 01/17/19 documented as of this encounter
--- OUTSIDE RECORDS SUMMARY | 2024-05-14 03:37 | XMS_ITS | Encounter Summary ---
[place] [address] Care Team Providers Care Composition Weatherboard Applier Name Role Phone Brandee Fuchs APRN Primary Care Provider [phone] Encounter Details Date Type Department Care Team (Late st Contact Info) Description 04/02/2020 Tele[place] [phone] Jaimie Simmons LNA Social History Tobacco Use [...] on filedocumented in this encounter Care Teams Composition Weatherboard Applier Relationship Specialty Start Date End Date Brandee Fuchs APRN PCP - General Family Medicine 01/17/19 documented as of this encounter
--- OUTSIDE RECORDS SUMMARY | 2024-05-14 03:37 | XMS_ITS | Encounter Summary ---
Author Organization [facility]ly [facility] Address [facility] [place] [address] Care Team Providers Care Hematology Specialist Name Role Phone Brandee Fuchs Obdulia GAMBLE Primary Care Provider [phone] Encounter Details Date Type Department Care Team (Late st Contact Info) Description 02/07/2020 9:00 AM EDT Office Visit Hematology/Oncology at [address] [phone] Ashok Hernandez MD [facility] [address] [place] [address] Iron deficiency anemia, unspecified iron deficiency anemia [...] 36.4 ??C (97.5 ??F) 02/07/2020 8:56 AM ED T Respiratory Rate 16 02/07/2020 8:56 AM EDT Oxygen Saturation 98% 02/07/2020 8:56 AM EDT Inhaled Oxygen Concentration - - Weight 91.2 kg (201 lb) 02/07/2020 8:56 AM EDT Height 154.9 cm (5' 0.98) 02/07/2020 8:56 AM ED T copied Body Mass Index 38 02/07/2020 8:56 AM EDT documented in this encounter Progress Notes * Ashok Hernandez MD - 02/07/2020 9:00 AM EDT The patient is a 44-year-old female who was referred back to the hematology clinic in [facility] by her primary care doctor for because [...] a ferritin down to single digits again. She is here to [...] file Gets together: Not on file Attends sabianist service: Not on file Active member of [...] Mental alterations ??? Gabapentin Other (See Comments) [place] like body was shaking, nerves vibrating, hands [...] (NASACORT OR NASACORT OTC) 55 mcg Aerosol, [place] 2 sprays by Nasal route daily. No [...] about using Venofer at 300 mg weekly for3 weeks. I also recommended premedications with Zofran and dexamethasone at 10 mg intravenously. Wetalked about these agents and she is willing to proceed. We will give her her first dose today. She will return in 1 week for her next dose. If she tolerates then we will complete all 3 doses. If she does not I may consider switching to Feraheme which can be better tolerated in some patients. If she ca get 900 mg of iron into her I will check her again in about 3 to 4 months with a CBC and a ferritin. She is likely to need intermittent intravenous [...] type documented in this encounter Care Teams Hematology Specialist Relationship Specialty Start Date End Date Brandee Fuchs APRN PCP - General Family Medicine 01/17/19 documented as of this encounter
--- OUTSIDE RECORDS SUMMARY | 2024-05-14 03:37 | XMS_ITS | Encounter Summary ---
Author Organization [facility] [place] [address] Care Team Providers Care Noxious Weeds And Pest Inspector Name Role Phone Brandee Fuchs APRN Primary Care Provider [phone] Encounter Details Date Type Department Care Team (Late st Contact Info) Description 02/06/2020 Telephone Hematology/Oncology at [address] [phone] Alyssa Darling Social History Tobacco Use Types [...] Miscellaneous Notes * Telephone Encounter - Alyssa Darling - 02/06/2020 1:27 PM EDT Called Malu to inform her [...] has not been out of the state is the pasted 30 days. Malu was test for COVID-19 @ [facility] it was negative. documented in this encounter Plan of Treatment Not on file documented as of this encounter Visit Diagnoses Not on filedocumented in this encounter Care Teams Noxious Weeds And Pest Inspector Relationship Specialty Start Date End Date Brandee Fuchs APRN PCP - General Family Medicine 01/17/19 documented as of this encounter
--- OUTSIDE RECORDS SUMMARY | 2024-05-14 03:37 | XMS_ITS | Encounter Summary ---
Author Organization [facility] [place] [address] Care Team Providers Care Museum Guide Name Role Phone Daniellino Brandee Steiner APRN Primary Care Provider [phone] Encounter Details Date Type Department Care Team (Late st Contact Info) Description 04/28/2020 Telephone [place] [address] Bertha Toussaint, [facility] Social History Tobacco Use Types Packs/Day [...] encounter Miscellaneous Notes * Telephone Encounter - Bertha Toussaint, [facility] - 04/28/2020 2:32 PM EDT [employer] Conche Loader And Unloader Pre-Telemedicine Phone Note [] Patient not reached [x] Patient reached and the following information was reviewed/obtained per protocol: [x] Confirmed patient name and date of [] Confirmed telemedicine akbar (Vidyo and Virtual Visit) is downloaded and functioning [] Confirmed location of patient - TeleVisit is taking place in [] [place] [] [place] [] If not on [facility], working on signing up for [facility] [x] Confirmed has completed any pre-visit questionnaires [] If has not received required pre-visit questionnaires, send via [facility] [x] Reviewed patient medications ??? dupilumab [...] (NASACORT OR NASACORT OTC) 55 mcg Aerosol, [place] [x] Documented self-reported vitals: [x] Weight: 197lb [...] on filedocumented in this encounter Care Teams Museum Guide Relationship Specialty Start Date End Date Brandee Fuchs, MAVIS PCP - General Family Medicine 01/17/19 documented as of this encounter
--- OUTSIDE RECORDS SUMMARY | 2024-05-14 03:37 | XMS_ITS | Encounter Summary ---
Author Organization [facility] [place] [address] Care Team Providers Care Manager Video Games Name Role Phone Daniellino Brandee Steiner APRN Primary Care Provider [phone] Reason for Visit * Reason Onset Date Comments Other 02/07/2020 social work asse ssment Encounter Details Date Type Department Care Team (Late st Contact Info) Description 02/07/2020 Telephone Hematology/Oncology at [address] [phone] Jamee Kovacs MSW OFFICE OF CARE MANAGEMENT Other (social work assessment) Social History Tobacco Use Types Packs/Day Years [...] encounter Miscellaneous Notes * Telephone Encounter - Jamee Kovacs MSW - 02/07/2020 10:50 AM EDT Reason for Referral: Brief assessment of social and emotional needs. TC with pt during her infusionvisit. Social Supports: Pt indicated her primary support is her 16 year old son who lives with her. Her daughter was killed in a car accident last month. She was not specific about her other supports other than there were people that are looking out for her. Living Situation/Daily Activities/Transportation: Pt lives in [place]. She and her son manage their daily [...] interested. Utilization of Community Resources: Medicaid; food assistance/[employer] Adjustment to Illness/Mental Health Issues: Pt shared her daughters recent . She shared how challenging this all has been. It has been more challenging because she does not feel well. Pt indicated her son is managing as best he can with everything and is finding his remote education challenging. Offered support. Identified Needs: Pt did not identify any specific needs at this time. Referrals: None at this time. Plan: Informed pt of [employer] availability and contact information as working remotely. Will follow for support and resources. documented in this encounter Plan of Treatment Not on file documented as of this encounter Visit Diagnoses Not on filedocumented in this encounter Care Teams Manager Video Games Relationship Specialty Start Date End Date Brandee Fuchs APRN PCP - General Family Medicine 01/17/19 documented as of this encounter
--- OUTSIDE RECORDS SUMMARY | 2024-05-14 03:37 | XMS_ITS | Encounter Summary ---
[place] [address] Care Team Providers Care Nail Specialist Name Role Phone DanielBrandee huynh Obdulia GAMBLE Primary Care Provider [phone] Reason for Visit * Reason Comments Medication Management Encounter Details Date Type Department Care Team (Late st Contact Info) Description 06/06/2020 Specialty [place] [address] Cammy Lewis RPH Social History Tobacco Use Types Packs/Day [...] as of this encounter Progress Notes * Cammy Lewis RPH - 06/06/2020 1:59 PM EDT Clinical Management Plan: Refill Specialty Pharmacy Consultation; Cammy Lewis RPH Comprehensive Medication Management (CMM) Malu [place]ana Santino Ms. Malu De is a 44 y.o. (1975) female who was contacted in regard to a specialty medication refill reminder. Spoke with patient regarding Dupixent. A review of the medication therapy wasperformed. The medication was Refilled as scheduled, and [...] beneficiary Provider: plan sponsor pharmacist [place] [facility] [place] Method of Contact: by telephone Cognitive Ability: good Cognitive Impairment Status Verified this Year: no Allergies and Drug intolerance: Allergies Allergen Reactions ??? Acetaminophen Mouth blisters ??? Amitriptyline Anxiety ??? Cyclobenzaprine Other (See Comments) Small blisters ??? Cymbalta [Duloxetine] Anxiety ??? Dulera [Mometasone-Formoterol] Other (See Comments) Mental alterations ??? Gabapentin Other (See Comments) [place] like body was shaking, nerves vibrating, hands went numb ??? Indomethacin ??? Tramadol Other (See Comments) Anxiety, foggy head, unaware ??? Vicodin [Hydrocodone-Acetaminophen] Mouth blisters Medication Reconciliation Discrepancies (compared to [facility] med list) -no New medications: no [...] were made at the appointment and that [facility] is providing recommendations (summary located at top of note) for provider review and follow up. Cammy Lewis RPH 06/06/20 2:00 PM * Nuha Dubon MD - 06/06/2020 1:59 PM [...] Patient Facing Action Plan Yes Rekha Coburn, [facility] Note: Reduction in use of SMILEY to 1-2 nebulizer treatments per day. Measured by: Patient report Time frame: 6 months documented as of this encounter Visit Diagnoses Not on filedocumented in this encounter Care Teams Nail Specialist Relationship Specialty Start Date End Date Brandee Fuchs APRN PCP - General Family Medicine 01/17/19 documented as of this encounter
--- OUTSIDE RECORDS SUMMARY | 2024-05-14 03:37 | XMS_ITS | Encounter Summary ---
Author Organization [facility] [place] [address] Care Team Providers Care Property Management Supervisor Name Role Phone Brandee Fuchs APRN Primary Care Provider Encounter Details Date Type Department Care Team (Late st Contact Info) Description 01/23/2020 2:00 PM EDT TH Visit (TeleHealth) [place] [address] Berkley Hernández APRN [facility] [place] [address] [address] Fibromyalgia Social History Tobacco Use Types Packs/Day [...] Progress Notes * Berkley Hernández APRN - 01/23/2020 2:00 PM [...] her zofran to use with it. Gave her HILL. Daniela lights up her nerves They recommended [...] and her hips She is [facility] now, who has referred her to sleep clinic For exercise she is walking Her lower back pain is the worse with driving or sitting When she lies down, constantly moving, because switching pressure back and forth If stands up or sits down to long, back start to hurt She would like to go ahead with MRI, at [facility] At first didn't feel tens unit so kept turning it up, then became extremely sensitive to touch Like PT until they overdid did with machines [facility] in [place] Past 06/14/19 Malu De is a 43 [...] pop and move. Joints dislocated. Indicates to SIJ.She notes that if she lifts up the [...] ankles, sij. Ankles snap. Her joint pain isconstant, doesn't feel better with movement or rest. [...] is, the harder to breath. She would [id number] advil at once, upset her stomach, so doesn't take anymore. She has tried heating pads. Helps in the short term. Past 01/11/17 The pt was a 41-year-old female, who returned for a follow up of neck pain, low back pain, and multiple joint. The pt noted that since her initial visit on September 13, 2016, she continued to experience neck pain, back pain, and multiple joint pain. Overall, the pain was worst in her upperback, followed by the neck, hips, shoulders, legs, [...] 04, 2017 were pending. Otherwise, she continued tocomplain of chronic fatigue, leg swelling, dyspnea on moderate [...] pain was worst in her upper back, followedby the neck, hips, shoulders, legs, and then arms.?? She denied any joint swelling, but she did complain of morning stiffness of the whole body that lasted all day.?? She was subsequently put on a multitude of agents, including amitriptyline, tramadol, and muscle relaxants, for symptomatic pain relief, but she felt minimal pain relief with these agents.?? She was subsequently referred to the Rhe[facility]ology Clinic at [facility] for further evaluation. ROS: Pulm (+) follows with pulm for uncontrolled asthma, dxed with asthma at 16yo, which happened at thesame time she started with chronic pain; she [...] boyfriend who smokes.?? 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 ?? [...] tolerated: cyclobenzaprine, elavil, cymbalta, indomethacin,tramadol, gabapentin, savella PCP is managing pain right now. Pt did not tolerate Savella, so next will try LDN and meloxicam thru PCP. Discussed that PCP can manage care in the future unless she wishes for co-management. I reached out to PCP to discuss further. Briefly discussed [...] unspecified documented in this encounter Care Teams Property Management Supervisor Relationship Specialty Start Date End Date Brandee Fuchs APRN PCP - General Family Medicine 01/17/19 documented as of this encounter
--- OUTSIDE RECORDS SUMMARY | 2024-05-14 03:37 | XMS_ITS | Encounter Summary ---
Author Organization [facility] [place] [address] Care Team Providers Care Mower Sharpener Name Role Phone DanielBrandee huynh Obdulia GAMBLE Primary Care Provider [phone] Reason for Visit * Reason Comments Follow-up Encounter Details Date Type Department Care Team (Late st Contact Info) Description 12/14/2019 1:30 PM EST Office [place] [address] Nuha Dubon MD [facility] [place] [address] Moderate persistent asthma, unspecified whether complicated; Environmental allergies Social History Tobacco Use Types Packs/Day Years [...] 155.5 cm (5' 1.22) 12/14/2019 1:31 PM ES T Body Mass Index 37.72 12/14/2019 1:31 PM EST documented in this encounter Patient Instructions * Patient Instructions* Nuha Dubon MD - 12/14/2019 1:30 PM EST Keep taking your inhalers. It would be okay to try the duonebs in place of albuterol as-needed. Let's check your eosinophil level (bloodwork) today to see if there are any other targets to manageyour asthma and allergies. Your vocal chords may be contributing to your shortness of breathe at times. Mindfulness practices and relaxation techniques can also be helpful for this. documented in this encounter Progress Notes * Nuha Dubon MD - 12/14/2019 1:30 PM EST Images from the original note were not included. [facility] Section of Pulmonary and Critical Care Medicine Outpatient Consultation Date of Encounter: 12/14/2019 Reason for Evaluation: Ms. Malu De returns to the pulmonary clinic for follow-up of asthma and allergies. I independently interviewed and examined the patient in the office and have reviewed available records. Dear Dr. Brandee Fuchs, [employer], As you know, Malu De is a 44 y.o. female with history of asthma, allergies, fibromyalgia and GERD who returns for scheduled pulmonary clinic f/u. She was last seen in pulmonary clinic in September 2019. Ms. De reports feeling okay, about the same. Still having ongoing respiratory symptoms. [place] like she had a respiratory exacerbation last week, which lasted for 2-3 days, during which she was short of breath with walking, coughing, and felt her symptoms were somewhat refractory to albuterol despite frequent use. Response to albuterol seemed variable, wheezing noise seemed to respond for a few hours, but dyspnea didn't really respond. She did not require ED evaluation for this, and did not end up on oral steroids. Currently she is feeling a little better, still using albuterol frequently (about 5 times most days), but feels her wheezing is less. She is not coughing, and denies chest congestion. She denies sinus congestion this week, but recalls a little last week which was mild. She hasno fevers or chills, or chest pain. She is still experiencing acute episodes of dyspnea associated with spasms of back pain and body tension; these episodes are partially responsive to albuterol. Shefinds walking past people who are vaping will [...] doesn't miss doses, and of the inhalers shehas been on over many years seem to [...] June by her report, and recalls about 3courses of prednisone last year for asthma/respiratory symptoms, [...] week. Takes 1 tab every other day) 180 [...] (NASACORT OR NASACORT OTC) 55 mcg Aerosol, [place] 2 sprays by Nasal route daily. No facility-administered medications prior to visit. Review of Systems: An 10-point ROS was completed and was positive as noted in HPI, also positive for chronic joint stiffness, chronically large tonsils, and otherwise negative. Physical Examination: BP 109/62 Pulse 62 Resp 16 Ht 155.5 cm (5' 1.22) Wt 91.2 kg (201 lb 1 oz) SpO2 99% BMI37.72 kg/m?? GEN: NAD, alert, generally well appearing, comfortable and conversational HEENT: MMM, large 2-3+ tonsils, unable to visualize posterior OP beyond uvula, nares are patent with moderate erythema and edema, left moreso than right, and appear shiny, anicteric sclera, PERRL, neck is supple with no LAD or tenderness, no [...] pred, with FEV1/FVC reduced to 66. The DTU29-12 is reduced pre-bronchodilator. FeNO is 33. I [...] consistent with moderate airflow obstruction, and moderately elevated FeNO combined with history of eosinophilia in the [...] ICS/LABA (Breo ellipta) and LAMA (Spiriva), and albuterol or duonebs PRN. She remains on singulair [...] further questions or concerns Nuha Dubon MD PENDING SALE TO [facility] [address] Dept: [phone] Loc: [phone] documented in this encounter Plan of Treatment Not on file documented as of this encounter Procedures Procedure Name Priority Date/Time Associated Diagnosis Comments SCAN, PERIPHERAL BLOOD Routine 12/14/2019 2:41 PM EST HEMOGRAM Routine 12/14/2019 2:41 PM EST Moderate persistent asthma, unspecified whether complicated Environmental allergies DIFFERENTIAL, AUTOMATED Routine 12/14/2019 2:41 PM EST Moderate persistent asthma, unspecified whether complicated Environmental allergies HC CBC,PLT & AUTO DIFF Routine 12/14/2019 2:41 PM EST Moderate persistent asthma, unspecified whether complicated Environmental allergies documented in this encounter Results * Scan, Peripheral Blood (12/14/2019 2:41 PM EST) Plat estimate Increased [facility] RBC Morphology Abnormal [facility] Microcyte 6-10 /HPF [facility] Hypochromia Slight [facility] Polychromasia Present >5/HPF [facility] Ovalocytes 6-10 /HPF [facility] Target Cells 1-5 /HPF [facility] Blood specimen (specimen) 12/14/2019 2:41 PM EST 12/14/2019 2:52 PM EST Narrative Resulting Agency Comment Spec In Lab Nuha Dubon MD HEMATOLOGY ORDERABLE S [facility] [place] [address] * (ABNORMAL) Differential, Automated (12/14/2019 2:41 PM EST) Neutrophil % 47.7 % [facility] Neutrophil Absolute 4.09 1.70 - 6.10 x10(3)/ L [facility] Lymph % 38.6 % [facility] Lymphocytes Abs 3.3(H) 0.9 - 3.2 x10(3)/[facility] Monocyte % 7.1 % [facility] Monocyte Abs 0.6 0.3 - 0.9 x10(3)/[facility] Eos % 5.5 % [facility] Eosinophils Abs 0.5(H) 0.0 - 0.4 x10(3)/[facility] Basophil % 0.7 % [facility] Baso Absolute 0.1 0.0 - 0.1 x10(3)/ L [facility] Immature Gran % 0.40 % [facility] Comment: Immature granulocytes(IG's)percentage and absolute count will include metamyelocytes, myelocytes, and promyelocytes. Blood smears from CBCs yielding IG's will be scanned manually for concordance. If this scan disagrees with the automated IG or if promyelocytes are noted, a manual differential will be performed. Immature Gran Absolute 0.03 0.00 - 0.04 x10(3)/ L [facility] Blood specimen (specimen) 12/14/2019 2:41 PM EST 12/14/2019 2:52 PM EST Narrative Resulting Agency Comment Spec In Lab Nuha Dubon MD HEMATOLOGY ORDERABLE S Performing Organization Address City/[facility]/ZIP Co de Phone Number [facility] [place] [address] * (ABNORMAL) Hemogram (12/14/2019 2:41 PM EST) White Blood Cell 8.6 4.0 - 9.5 x10(3)/mc L [facility] Red Blood Cell 5.33(H) 4.00 - 5.21 x10(6)/mc L [facility] Hemoglobin 11.0(L) 11.7 - 15.5 gm/dL [facility] Hematocrit 39.5 35.7 - 45.8 % [facility] Mean Cell Volume 74.1(L) 82.6 - 94.4 fL [facility] Mean Cell Hemoglobin 20.6(L) 27.1 - 32.0 pg [facility] Mean Cell Hemoglobin Concentration 27.8(L) 31.7 - 35.0 gm/dL [facility] Platelet 475(H) 145 - 357 x10(3)/mc L [facility] RDW Standard Deviation 49.0(H) 37.0 - 46.0 fL [facility] RDW coefficient of variation 18.8(H) 11.5 - 14.1 % [facility] Mean Platelet Volume 9.1 7.6 - 12.9 fL [facility] NRBC% auto 0.0 % [facility] NRBC Absolute 0.000 0.000 - 0.000 x10(3)/mc L [facility] Blood specimen (specimen) 12/14/2019 2:41 PM EST 12/14/2019 2:52 PM EST Narrative Resulting Agency Comment Spec In Lab Nuha Dubon MD HEMATOLOGY ORDERABLE S Performing Organization Address City/[facility]/ZIP Co de Phone Number [facility] [place] [address] documented in this encounter Visit Diagnoses Diagnosis Moderate persistent asthma, unspecified whether complicated Environmental allergies Allergic rhinitis, cause unspecified documented in this encounter Care Teams Mower Sharpener Relationship Specialty Start Date End Date Brandee Fuchs, MAVIS PCP - General Family Medicine 01/17/19 documented as of this encounter
--- OUTSIDE RECORDS SUMMARY | 2024-05-14 03:37 | XMS_ITS | Encounter Summary ---
Author Organization [facility] [place] [address] Care Team Providers Care Patternmaker Pressure Cast Name Role Phone Brandee Fuchs APRN Primary Care Provider [phone] Encounter Details Date Type Department Care Team (Late st Contact Info) Description 05/02/2020 Telephone [facility] [place] [phone] Carmella Alonso Social History Tobacco Use Types Packs/Day Years [...] encounter Miscellaneous Notes * Telephone Encounter - Carmella Alonso - 05/02/2020 3:12 PM EDT 05/02/2020 Left message for patient to call back and schedule 30 minute follow up appointments every week through the end of May. Per Dr. Mckeon, this can be a 30 minute in person visit to coordinate with patients other appointments at , or a [address] Mckeon will call the patientif it is scheduled as a telehealth, as patient has had previous telehealth issues. documented in this encounter Plan of Treatment Not on file documented as of this encounter Goals Goal Patient Goal Type Associated Problems Recent Progress Patient-Stated? Author DH Home Medication Compliance and Understanding Patient Facing Action Plan Yes Rekha Coburn, [facility] Note: Reduction in use of SMILEY to 1-2 nebulizer treatments per day. Measured by: Patient report Time frame: 6 months documented as of this encounter Visit Diagnoses Not on filedocumented in this encounter Care Teams Patternmaker Pressure Cast Relationship Specialty Start Date End Date Brandee Fuchs, MAVIS PCP - General Family Medicine 01/17/19 documented as of this encounter
--- OUTSIDE RECORDS SUMMARY | 2024-05-14 03:37 | XMS_ITS | Encounter Summary ---
[place] [address] Care Team Providers Care Production Supply Equipment Tender Name Role Phone Daniellino Brandee Lino GAMBLE Primary Care Provider [phone] Reason for Visit * Reason Comments Prior Authorization Dupixent 300mg/2ml S OSY Encounter Details Date Type Department Care Team (Late st Contact Info) Description 04/10/2020 Specialty [place] [address] Fidencio Segundo Social History Tobacco Use Types Packs/Day Years [...] as of this encounter Progress Notes * Fidencio Segundo - 04/10/2020 1:23 PM EDT [facility], Medication Prior Authorization Patient: Malu De Patient : 1975 Patient Address: [address] [place] [id number] (home) Medication Name: DUPIXENT 300 MG/2 ML SUBCUTANEOUS SYRINGE Medication ID: Patient Location: Patient Location Comment: Subscriber Insurance: [place] Medicaid Subscriber Insurance Comment: Fax: Physician: HELEN RODGERS Physician Comment: Sent Via: Fax [place]: Ref/Case/PA#: Medication Strength Frequency Requested: Dupixent 300mg/2ml SOSY every 14 days Qty/Day Supply: 01/21 New Start: New to Therapy Diagnosis & ICD-10 Code: J45.51 Severe persistent asthma with acute exacerbation Patient Notified: No Submission Notes: * Isabella Chairez - 04/10/2020 1:23 PM EDT [facility], Prior Authorization Approval Medication Name: DUPIXENT 300 MG/2 ML SUBCUTANEOUS SYRINGE Medication ID: [id number] Fillable at [facility]: Yes Approval Dates: 04/10/2020 to 07/11/2020 Insurance requirements/notes: Other notes Approval is good for both the loading and maintenance dose Case/Reference #: [id number] Approval notification Received via: Fax Copay: $3.00 Copay assistance: None Copay Notes: Patient is not eligible for the copay card since she has Medicaid Insurance mandated Pharmacy: [facility] Pharmacy staff will be reaching out to the patient to inform them of their [facility]. If applicable, a pharmacist will speak with the patient to offer our specialty pharmacy services and to arrange delivery of their medication. documented in this encounter Plan of Treatment Not on file documented as of this encounter Goals Goal Patient Goal Type Associated Problems Recent Progress Patient-Stated? Author DH Home Medication Compliance and Understanding Patient Facing Action Plan Yes Rekha Coburn, [facility] Note: Reduction in use of SMILEY to 1-2 nebulizer treatments per day. Measured by: Patient report Time frame: 6 months documented as of this encounter Visit Diagnoses Not on filedocumented in this encounter Care Teams Production Supply Equipment Tender Relationship Specialty Start Date End Date Brandee Fuchs APRN PCP - General Family Medicine 01/17/19 documented as of this encounter
--- OUTSIDE RECORDS SUMMARY | 2024-05-14 03:37 | XMS_ITS | Encounter Summary ---
Author Organization [facility] [place] [address] Care Team Providers Care Managing Supervisor Name Role Phone Brandee Fuchs APRN Primary Care Provider [phone] Reason for Visit * Reason Onset Date Comments Medication Refill 06/17/2020 Encounter Details Date Type Department Care Team (Late st Contact Info) Description 06/17/2020 Refill Hematology/Oncology at [address] [phone] Basilia Vaughan APRN [address] [place] [address] HEMATOLOGY ONCOLOGY [place], [place] [id number] Iron deficiency anemia, unspecified iron deficiency anemia [...] Type Associated Problems Recent Progress Patient-Stated? Author [facility] Medication Compliance and Understanding Patient Facing Action Plan Yes Rekha Coburn, [facility] Note: Reduction in use of SMILEY to 1-2 nebulizer treatments per day. Measured by: Patient report Time frame: 6 months documented as of this encounter Visit Diagnoses Diagnosis Iron deficiency anemia, unspecified iron deficiency anemia type documented in this encounter Care Teams Managing Supervisor Relationship Specialty Start Date End Date Brandee Fuchs APRN PCP - General Family Medicine 01/17/19 documented as of this encounter
--- OUTSIDE RECORDS SUMMARY | 2024-05-14 03:37 | XMS_ITS | Encounter Summary ---
[place] [address] Care Team Providers Care Capsule Inspector Name Role Phone Brandee Fuchs APRN Primary Care Provider [phone] Encounter Details Date Type Department Care Team (Late st Contact Info) Description 03/17/2020 Telephone [place] [address] Liliana Thomas Social History Tobacco Use Types [...] * Telephone Encounter - Liliana Thomas - 03/17/2020 9:16 AM EDT lvm to schedule follow up in clinic on 03/24 @2:30 per DMP documented in this encounter Plan of Treatment Not on file documented as of this encounter Visit Diagnoses Not on filedocumented in this encounter Care Teams Capsule Inspector Relationship Specialty Start Date End Date Brandee Fuchs APRN PCP - General Family Medicine 01/17/19 documented as of this encounter
--- OUTSIDE RECORDS SUMMARY | 2024-05-14 03:37 | XMS_ITS | Encounter Summary ---
Author Organization [facility] [place] [address] Care Team Providers Care Apartment Coordinator Name Role Phone Brandee Fuchs APRN Primary Care Provider [phone] Encounter Details Date Type Department Care Team (Late st Contact Info) Description 02/20/2020 Telephone Hematology/Oncology at [address] [phone] Alyssa Darling Social History Tobacco Use Types [...] on filedocumented in this encounter Care Teams Apartment Coordinator Relationship Specialty Start Date End Date Brandee Fuchs APRN PCP - General Family Medicine 01/17/19 documented as of this encounter
--- OUTSIDE RECORDS SUMMARY | 2024-05-14 03:37 | XMS_ITS | Encounter Summary ---
Author Organization [facility] [place] [address] Care Team Providers Care Production Mechanic Name Role Phone Daniellino Brandee Steiner APRN Primary Care Provider [phone] Reason for Visit * Reason Onset Date Comments Other 02/21/2020 follow up Encounter Details Date Type Department Care Team (Late st Contact Info) Description 02/21/2020 Telephone Hematology/Oncology at [address] [phone] Jamee Kovacs MSW OFFICE OF CARE MANAGEMENT Other (follow up) Social History Tobacco Use Types Packs/Day Years [...] EDT Pt declined follow up call with [employer] offered during her infusion visit today. Asked that pt be reminded of [employer] availability should she want to talk. documented in this encounter Plan of Treatment Not on file documented as of this encounter Visit Diagnoses Not on filedocumented in this encounter Care Teams Production Mechanic Relationship Specialty Start Date End Date Brandee Fuchs APRN PCP - General Family Medicine 01/17/19 documented as of this encounter
--- OUTSIDE RECORDS SUMMARY | 2024-05-14 03:37 | XMS_ITS | Encounter Summary ---
Author Organization Formerly [facility] [place] [facility] [place] [address] Care Team Providers Care Toy Painter Name Role Phone aDniellino Brandee Steiner APRN Primary Care Provider [phone] Reason for Visit * Reason Comments Pain Management Encounter Details Date Type Department Care Team (Latest Contact Info) Description 03/13/2020 9:00 AM EDT TH Visit (TeleHealth) [facility] [place] [address] Jodi Mckeon, [place] [address] Psychological factor affecting physical condition Social History Tobacco Use Types Packs/Day Years [...] - Inhaled Oxygen Concentration - - Weight 91.2 kg (201 lb) 03/13/2020 8:57 AM EDT Height 152.4 cm (5') 03/13/2020 8:57 AM EDT Body Mass Index 39.26 03/13/2020 8:57 AM EDT documented in this encounter Progress Notes * Jodi Mckeon PsyD - 03/13/2020 9:00 AM EDT Behavioral Medicine - [facility] Follow up Name: Malu De Patient's age: 44 y.o. Date: 03/13/2020 Duration of appt: 16 min Malu De gave permission for and was seen for today's appointment with a Telephone visit. During today's visit, she was located at the home address listed in the chart. Malu De is aware that for any urgent MH matter she can call [phone].She was upset to have been scheduled for atehealth visit despite specifically requesting a phone call appt as her internet connection is poor. Explained the difficulty in completing a psychological assessment via phone and we agreed to schedule an in person visit on a monthly basis. We discussed her current MH status, which is stable, but she is focused at this time on providing emotional support to her teenage son and her daughter's fi ance. PP; c/o multisite pain secondary to comorbid Sofy-Danlos syndrome and fibromyalgia. SUMMARY: 44 y.o. year old single white female from [facility] with hx of Ehler's Danlos syndrome and fibromyalgia referred by Rick Reynaga MD.Here today for followup , which will focus on additional information gathering and psychoeducation. Pt struggling with ongoing pain in s/o multiple psychosocial stressors and comorbid health conditions including recent of her 23-year-old daughter, possible ROSALVA, and asthma. Current relevant Rxs include low-dose naltrexone and meloxicam. PLAN: Malu will be scheduled for a 60 m follow up appointment in person focused on gathering additional information on pain coping skills and assessing motivation for behavioral pain management. documented in this encounter Plan of Treatment Not on file documented as of this encounter Visit Diagnoses Diagnosis Psychological factor affecting physical condition Psychic factors associated with diseases classified elsewhere documented in this encounter Care Teams Toy Painter Relationship Specialty Start Date End Date Brandee Fuchs APRN PCP - General Family Medicine 01/17/19 documented as of this encounter
--- OUTSIDE RECORDS SUMMARY | 2024-05-14 03:37 | XMS_ITS | Encounter Summary ---
[place] [address] Care Team Providers Care Mobile Mechanic Name Role Phone Brandee Fuchs APRN Primary Care Provider [phone] Encounter Details Date Type Department Care Team (Late st Contact Info) Description 03/11/2020 Telephone [place] [address] Liliana Thomas Social History Tobacco Use Types [...] * Telephone Encounter - Liliana Thomas - 03/11/2020 11:38 AM EDT LEFT A VOICEMAIL TO CONFIRM MOVE OF APPT TIME TO 9:00 AM INSTEAD OF 10:00 AM ON 03/13/20 documented in this encounter Plan of Treatment Not on file documented as of this encounter Visit Diagnoses Not on filedocumented in this encounter Care Teams Mobile Mechanic Relationship Specialty Start Date End Date Brandee Fuchs APRN PCP - General Family Medicine 01/17/19 documented as of this encounter
--- OUTSIDE RECORDS SUMMARY | 2024-05-14 03:37 | XMS_ITS | Encounter Summary ---
Author Organization [facility] [place] [address] Care Team Providers Care Stone Dresser Name Role Phone Brandee Fuchs APRN Primary Care Provider Reason for Visit * Reason Comments Back Pain Neck Pain Bilateral Leg Pain Bilateral Arm Pain Encounter Details Date Type Department Care Team (Latest Contact Info) Description 02/01/2020 1:00 PM EDT TH Visit (TeleHealth) [facility] [place] [address] [place] [address] Psychological factor affecting physical condition Social History [...] in this encounter Progress Notes * Jodi Mckeon, PsyD - 02/01/2020 1:00 PM EDT Behavioral Medicine - [facility] Initial Appointment - Biopsychosocial Pain Evaluation [...] any urgent MH matter she can call [phone]. Today, the telehealth software was not functioning, and the patient and I were intermittently unable to see or hear one another. We agreed [...] for 60 minute health and behavior assessment completed via Telephone. Patient completed the following measures prior to the appointment: Pain Drawing, Pain Catastrophizing Scale (PCS)*, Pain Outcomes Questionnaire (POQ), and Patient Health Questionnaire (PHQ-9). Process of initial evaluation and limits of confidentiality were reviewed with Haider expressed agreement and understanding. * Patient did not complete the pain catastrophizing scale because she felt that some of the language was too specific and/or not applicable (e.g., stated that she is not afraid that her pain will grow worse, but rather worries that her pain will grow worse). Will review the questions in this measure and obtain information related to her cognitive response to pain at a later date. DATA In preparation for this initial appointment, Malu's chart and documentation from other providerswere reviewed. Much of the documentation of patient's [...] basic physical activities, and she has extremely low levels of energy, strength, and endurance. She did [...] you pull a muscle and it's so sore and it hurts, mine feel like that all the time. My joints hurt constantly, they feel sore like mymuscles. It hurts to move and bend, sit, [...] treatments have worked, lots of side effects of medications, and have never really found anything that helped. Has worked with her primary for sixyears, she has realized that a lot of things that she has been sharing with her providers do not make it into the chart. She felt like that a lot of what she has been trying to tell her doctors has not been getting through to them. She feels like her current provider really cares. Was told at 24 yothat she would become accustomed to it - she felt like her doctor's didn't really understand her conditions. She limited her exposure to her doctors after that, and then her breathing and pain started getting really bad about 6 years ago, she began to really worry that her children would find herunconscious or worse. Primary Concern at this time: It is noted that patient's adult daughter 2 weeks ago in a car accident that the patient witnessed. Her primary concern at this time is actually focusing on care for her teenage son, taking care of her daughter's fianc??, and taking care of the administrative concerns of her daughters affairs. Malu c/o multisite pain secondary to comorbid Sofy-Danlos syndrome and fibromyalgia. She feelsthat she has had a difficult time over [...] a sleep study in her local area ([facility]), and multiple providers that she had been referred to either retired or left the service. She has now been re-referredfor a sleep study at [facility]. FUNCTIONAL ASSESSMENT Impact of pain on mood / self-esteem: She states that the impact of pain on her mood and self-esteem is that pain makes her feel bad, stating [...] approximately 5 years. 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 She states that she missesthis kind of work, noting that she now feels kind of useless. She reported that it is hard to feel useful, you never get anything accomplished. She noted that she is the type of person who never liked to accept help from others, that she preferred to care for others, and that now having to ask for and accept help from others is very difficult for her. Impact on Social/Community activities: She states that she is not involved in social or community activities. Impact on leisure activities and hobbies: She states that she has a very difficult time doing stuffwith her kids. She provided the example that she cannot sit through a movie, she cannot really takethem out because mom cannot sit for more than a half an hour, she has to move around. She noted that they rarely visit restaurants instead having to get take out, as she cannot sit for very long. She reported that she had tried to hide her condition from her children for many years, noting thatshe did not want them to worry. But [...] elsewhere documented in this encounter Care Teams Stone Dresser Relationship Specialty Start Date End Date Brandee Fuchs APRN PCP - General Family Medicine 01/17/19 documented as of this encounter
--- OUTSIDE RECORDS SUMMARY | 2024-05-14 03:37 | XMS_ITS | Encounter Summary ---
Author Organization [facility] [place] [address] Care Team Providers Care Storage Brine Worker Name Role Phone Brandee Fuchs APRN Primary Care Provider [phone] Reason for Visit * Reason Onset Date Comments Other 06/06/2020 [facility]. 06/12/2020 Encounter Details Date Type Department Care Team (Late st Contact Info) Description 06/06/2020 Telephone Hematology/Oncology at [address] [address] Alyssa Darling Other ([facility] SCH[facility]. 06/12/2020) Social History Tobacco Use Types Packs/Day Years [...] Patient Facing Action Plan Yes Rekha Coburn, [facility] Note: Reduction in use of SMILEY to 1-2 nebulizer treatments per day. Measured by: Patient report Time frame: 6 months documented as of this encounter Visit Diagnoses Not on filedocumented in this encounter Care Teams Storage Brine Worker Relationship Specialty Start Date End Date Brandee Fuchs APRN PCP - General Family Medicine 01/17/19 documented as of this encounter
--- OUTSIDE RECORDS SUMMARY | 2024-05-14 03:37 | XMS_ITS | Encounter Summary ---
Author Organization [facility] [place] [address] Care Team Providers Care Helicopter Engineer Name Role Phone Brandee Fuchs APRN Primary Care Provider [phone] Encounter Details Date Type Department Care Team (Late st Contact Info) Description 06/17/2020 Telephone Hematology/Oncology at [address] [phone] Basilia Vaughan APRN [address] [place] [address] [place] [address] Social History Tobacco Use Types Packs/Day Years [...] encounter Miscellaneous Notes * Telephone Encounter - Basilia Vaughan APRN - 06/17/2020 1:44 PM EDT Message left for Malu that Iron sucrose infusions are now scheduled for 06/19/20; 06/26/20 and 07/03/20. Previously, Malu has needed to use 4 mg Dexamethasone for 3 days post infusion to help withside effects. Prescription for 9 Dexamethasone (4mg) tablets sent to [facility]. documented in this encounter Plan of Treatment Not on file documented as of this encounter Goals Goal Patient Goal Type Associated Problems Recent Progress Patient-Stated? Author DH Home Medication Compliance and Understanding Patient Facing Action Plan Yes Rekha Coburn [facility] Note: Reduction in use of SMILEY to 1-2 nebulizer treatments per day. Measured by: Patient report Time frame: 6 months documented as of this encounter Visit Diagnoses Not on filedocumented in this encounter Care Teams Helicopter Engineer Relationship Specialty Start Date End Date Brandee Fuchs APRN PCP - General Family Medicine 01/17/19 documented as of this encounter
--- OUTSIDE RECORDS SUMMARY | 2024-05-14 03:37 | XMS_ITS | Encounter Summary ---
Author Organization [facility] [place] [address] Care Team Providers Care Plan Manager Name Role Phone Brandee Fuchs APRN Primary Care Provider Reason for Visit * Psychiatric (Routine) - Closed Specialty Diagnoses / Procedures Referred By Adryan t Referred To Contact [facility] and Sp[facility] Diagnoses Fibromyalgia PNE - 15 min TOV *okay to schedule Rick Reynaga MD [facility] [place] [address] Jodi Mckeon [facility] [place] [address] Referral ID Status Reason Start Date Expiration Date V isits Requested Visits Authorized [id number] Closed Consult, Test & Treat 11/29/2019 11/28/2020 1 1 Encounter Details Date Type Department Care Team (Late st Contact Info) Description 01/17/2020 1:30 PM EDT TH Visit (TeleHealth) [place] [phone] Jodi Mckeon [place] [facility] [place] [address] Fibromyalgia Social History Tobacco Use Types Packs/Day [...] as of this encounter Progress Notes * Linda Jodi Arias, PsyD - 01/17/2020 1:30 PM EDT [facility] - Telephone Visit Behavioral Medicine Date: 01/17/2020 Pt: Malu Toribio verbally consents to this telephone visit and understands that this visit may be billed, similar to a clinic office visit During this visit Malu was located at the home address listed in the chart. Patient informed that for any urgent MH crisis, s/he can call [phone]. Total time of call 22 minutes. Subjective: Today, Malu reports feeling grief as her daughter was recently killed in a car accident. Sheisremaining at home during the public health crisis. Malu denied feeling suicidal and stated that she is supported emotionally by her family and friends. She does not have a counselor or riprap placing supervisor. Denies SI over past 30 days, denies hx of delusions or ideas of references. Endured a brief psychoticepisode in 2018 after an incident of hypothermia [...] understanding and agreement. - Patient lives in [place] where this provider may practice via telehealth per [place] law [id number]. - Patient uses [facility]. - Patient consents that materials could be [...] to complete Pain Psychology intake paperwork via. [facility]. Appreciate Geothermal System Installer's assistance in the care of this pt. documented in this encounter Plan of Treatment Scheduled Referrals Name Type Priority Associated Diagnoses Order Schedule Referral to Psychology Outpatient Referral Routine Fibromyalgia Ordered: 11/29/2019 documented as of this encounter Visit Diagnoses Diagnosis Fibromyalgia Mylagia and myositis, unspecified documented in this encounter Care Teams Plan Manager Relationship Specialty Start Date End Date Brandee Fuchs, MAVIS PCP - General Family Medicine 01/17/19 documented as of this encounter
--- OUTSIDE RECORDS SUMMARY | 2024-05-14 03:37 | XMS_ITS | Encounter Summary ---
Author Organization [facility] [place] [address] Care Team Providers Care Organic Preparation Technician Name Role Phone Brandee Fuchs APRN Primary Care Provider [phone] Encounter Details Date Type Department Care Team (Late st Contact Info) Description 02/13/2020 Telephone Hematology/Oncology at [address] [phone] Alyssa Darling Social History Tobacco Use Types [...] on filedocumented in this encounter Care Teams Organic Preparation Technician Relationship Specialty Start Date End Date Brandee Fuchs APRN PCP - General Family Medicine 01/17/19 documented as of this encounter
--- OUTSIDE RECORDS SUMMARY | 2024-05-14 03:37 | XMS_ITS | Encounter Summary ---
[place] [address] Care Team Providers Care Powder Core Tester Name Role Phone DanielBrandee huynh Obdulia GAMBLE Primary Care Provider [phone] Encounter Details Date Type Department Care Team (Latest Contact Info) Description 04/08/2020 4:30 PM EDT TH Visit (TeleHealth) [place] [address] Nuha Dubon MD [facility] [address] Severe persistent asthma with acute exacerbation; Environmental allergies; Eosinophilia Social History Tobacco Use Types Packs/Day Years [...] Progress Notes * Nuha Dubon MD - 04/08/2020 4:30 PM EDT Images from the original note were not included. [facility] Section of Pulmonary and Critical Care Medicine [...] anxiety triggering dyspnea. This month she feels like her breathing is returning back to how it [...] has had some hive-like rashes from spring allergiesthis year, but feels like her sinuses are pretty clear currently. She is on singulair and flonase. She has been receiving iron infusions, and notes that some of her blood lines were lower on the recent bloodwork last week. ([facility] labs; not currently available.) Her [...] previous reaction to xolair (worsened dyspnea after seconddose) and history of side effects from many other medications that she might experience side effects from biologic drugs for eosinophilia/asthma. She does experience side effects from prednisone whenshe is on this (weight gain.) Current Medications [...] (NASACORT OR NASACORT OTC) 55 mcg Aerosol, [place] 2 sprays by Nasal route daily. No [...] symptoms of uncontrolled asthma, very frequent oral corticosteroidcourses this year, and unmasking of moderate airflow obstruction on spirometry at her last visit. Un fortunately, symptoms are not improving this year. We again discussed option to try biologic therapy targetting her eosinophilia which she is nervous about but which she is now willing to try. Given her history of side effects from many previous medications she would like to try the shortest-actingbiologic option possible, which would be dupixent. I think this would be an appropriate choice for her severe persistent asthma and we will prescribe this. Additionally, as she has uncontrolled symptoms currently concerning for subacute asthma exacerbation I am prescribing a steroid course now for more immediate relief while we work on prior authorization. She will continue on current breo and spi danielle as well. There may still be a [...] of clinical time. Nuha Dubon MD [facility] PULMONOLOGY AT [facility] [address] Dept: [phone] Loc: [phone] documented in this encounter Plan of Treatment Not on file documented as of this encounter Visit Diagnoses Diagnosis Severe persistent asthma with acute exacerbation Unspecified asthma, with exacerbation Environmental allergies Allergic rhinitis, cause unspecified Eosinophilia documented in this encounter Care Teams Powder Core Tester Relationship Specialty Start Date End Date Brandee Fuchs, SOIL TESTER PCP - General Family Medicine 01/17/19 documented as of this encounter
--- OUTSIDE RECORDS SUMMARY | 2024-05-14 03:37 | XMS_ITS | Encounter Summary ---
Author Organization [place] [address] Care Team Providers Care Washing Machine Installer Name Role Phone Brandee Fuchs APRN Primary Care Provider Encounter Details Date Type Department Care Team (Late st Contact Info) Description 06/12/2020 8:30 AM EDT Office Visit Hematology/Oncology at [address] [phone] Basilia Vaughan APRN [address] [place] [address] HEMATOLOGY ONCOLOGY [place], [place] [id number] Iron deficiency anemia, unspecified iron deficiency anemia [...] 36.2 ??C (97.2 ??F) 06/12/2020 8:45 AM ED T Respiratory Rate 16 06/12/2020 8:45 AM EDT Oxygen Saturation 98% 06/12/2020 8:45 AM EDT Inhaled Oxygen Concentration - - Weight 86.2 kg (190 lb) 06/12/2020 8:45 AM EDT Height 154.9 cm (5' 0.98) 06/12/2020 8:45 AM ED T copied Body Mass Index 35.92 06/12/2020 8:45 AM EDT documented in this encounter Progress Notes * Basilia Vaughan, GRAIN OPERATOR - 06/12/2020 8:30 AM EDT Images from the original note were not included. Subjective: Patient ID: Malu De is a 44 y.o. female. Patient Active Problem List Diagnosis ??? Fatigue ??? Fibromyalgia ??? Asthma HPI ?? The patient is a 44-year-old female who [facility] because of [...] 44 yo female who comes to the [facility] onc[facility] clinic today for evaluation and review of ferritin and CBC for previously diagnosed LATHA. Malu has no acute anemia-related complaints today. She denies shortness of breath, heart palpitations or new fatigue Issues. She reports thinking clearly, and denies any unusual bleeding. She is not interested at this time in a GI workup [...] Mental alterations ??? Gabapentin Other (See Comments) [place] like body was shaking, nerves vibrating, hands [...] (NASACORT OR NASACORT OTC) 55 mcg Aerosol, [place] ??? predniSONE (Deltasone) 20 mg Tablet ??? [...] 43; TIBC 358; TRANSFERRIN % SAT 12. 8/ BUN 10; CREAT 0.82; K+3.9; NA 140; [...] Patient Facing Action Plan Yes Rekha Coburn, [facility] Note: Reduction in use of SMILEY to 1-2 nebulizer treatments per day. Measured by: Patient report Time frame: 6 months documented as of this encounter Visit Diagnoses Diagnosis Iron deficiency anemia, unspecified iron deficiency anemia type documented in this encounter Care Teams Washing Machine Installer Relationship Specialty Start Date End Date Brandee Fuchs APRN PCP - General Family Medicine 01/17/19 documented as of this encounter
--- OUTSIDE RECORDS SUMMARY | 2024-05-14 03:37 | XMS_ITS | Encounter Summary ---
Author Organization [facility] [place] [address] Care Team Providers Care Row Boss Hoeing Name Role Phone Brandee Fuchs APRN Primary Care Provider [phone] Encounter Details Date Type Department Care Team (Late st Contact Info) Description 04/17/2020 Telephone Sleep Center at [facility] [address] [place] [address] Ivy Ceja Social History Tobacco Use Types Packs/Day Years [...] on filedocumented in this encounter Care Teams Row Boss Hoeing Relationship Specialty Start Date End Date Brandee Fuchs APRN PCP - General Family Medicine 01/17/19 documented as of this encounter
--- OUTSIDE RECORDS SUMMARY | 2024-05-14 03:37 | XMS_ITS | Encounter Summary ---
Author Organization [facility] [place] [address] Care Team Providers Care Photography Spotter Name Role Phone Brandee Fuchs APRN Primary Care Provider Reason for Referral * Consultation (Routine) - Specialty Diagnoses / Procedures Referred By Adryan marin Referred To Contact [facility] and Spine Center Diagnoses Hypermobility arthralgia Fibromyalgia Pain - Fibromyalgia/ hypermobility arthralgia/ ?low dose suboxone *attending/fellow Berkley Hernández APRN [facility] [address] [facility] [place] [address] Referral ID Status Reason Start Date Expiration Date V isits Requested Visits Authorized [id number] Consult, Test & Treat 11/02/2019 11/01/2020 1 1 Encounter Details Date Type Department Care Team (Late st Contact Info) Description 11/02/2019 Orders [place] [address] Berkley Hernández APRN [facility] [place] [address] Hypermobility arthralgia; Chronic midline low back pain without sciatica; Fibromyalgia Social History Tobacco Use Types Packs/Day [...] Priority Associated Diagnoses Order Schedule Referral to Pain Management Outpatient Referral Routine Hypermobility arthralgia Fibromyalgia Ordered: 11/02/2019 documented as of this encounter Visit Diagnoses Diagnosis Hypermobility arthralgia Pain in joint, site unspecified Chronic midline low back pain without sciatica Fibromyalgia Mylagia and myositis, unspecified documented in this encounter Care Teams Photography Spotter Relationship Specialty Start Date End Date Brandee Fuchs APRN PCP - General Family Medicine 01/17/19 documented as of this encounter
--- OUTSIDE RECORDS SUMMARY | 2024-05-14 03:37 | XMS_ITS | Encounter Summary ---
[place] [address] Care Team Providers Care Group Exercise Instructor Name Role Phone Brandee Fuchs APRN Primary Care Provider [phone] Encounter Details Date Type Department Care Team (Late st Contact Info) Description 10/15/2019 Telephone [place] [phone] Indira Kerns Social History Tobacco Use Types Packs/Day Years [...] on filedocumented in this encounter Care Teams Group Exercise Instructor Relationship Specialty Start Date End Date Brandee Fuchs APRN PCP - General Family Medicine 01/17/19 documented as of this encounter
--- OUTSIDE RECORDS SUMMARY | 2024-05-14 03:37 | XMS_ITS | Encounter Summary ---
[place] [address] Care Team Providers Care Night Court Magistrate Name Role Phone DanielBrandee huynh Obdulia GAMBLE Primary Care Provider Reason for Visit * Reason Onset Date Comments Results 04/10/2020 Scanned copy of CBC results to patient chart from her PCP and will send the original to Dr. Dubon. Encounter Details Date Type Department Care Team (Late st Contact Info) Description 04/10/2020 Telephone [place] [phone] Brenda Toth RN Results (Scanned copy of CBC results to patient chart from her PCP and will send the original to Dr. Dubon.) Social History Tobacco [...] Type Associated Problems Recent Progress Patient-Stated? Author [facility] Medication Compliance and Understanding Patient Facing Action Plan Yes Rekha Coburn, [facility] Note: Reduction in use of SMILEY to 1-2 nebulizer treatments per day. Measured by: Patient report Time frame: 6 months documented as of this encounter Visit Diagnoses Not on filedocumented in this encounter Care Teams Night Court Magistrate Relationship Specialty Start Date End Date Brandee Fuchs APRN PCP - General Family Medicine 01/17/19 documented as of this encounter
--- OUTSIDE RECORDS SUMMARY | 2024-05-14 03:37 | XMS_ITS | Encounter Summary ---
Author Organization [facility] [place] [address] Care Team Providers Care Antique Clock Repairer Name Role Phone Brandee Fuchs APRN Primary Care Provider Encounter Details Date Type Department Care Team (Late st Contact Info) Description 04/29/2020 2:00 PM EDT TH Visit (TeleHealth) [place] [address] Berkley Hernández APRN [facility] [place] [address] Fibromyalgia Social History Tobacco Use Types Packs/Day [...] * Patient Instructions* Berkley Hernández APRN - 04/29/2020 2:00 PM EDT RTC 4 months documented in this encounter Progress Notes * Berkley Hernández APRN - 04/29/2020 2:00 PM [...] couple times for her breathing, just finished course Prednisone didn't her pain The more repetitive motion she does with joints causes more pain In PT doing lower body bc upper body was suffering; she has persistent pain after PT She is doing traditional PT, she is not against pool therapy but doesn't think it helped too much; also worried about breathing in humid pool environment Past 01/23/2020 She is not well, daughter in [...] week, setting up visits last week Past 09/21/19 The tens unit made things worse Doing nothing for pain right now Her neck, through middle of back gets muscle spasm The low back at tailbone, and her hips She is [facility], who has referred her to sleep clinic For exercise she is walking Her lower back pain is the worse with driving or sitting When she lies down, constantly moving, because switching pressure back and forth If stands up or sits down to long, back start to hurt She would like to go ahead with MRI, at [facility] At first didn't feel tens unit so kept turning it up, then became extremely sensitive to touch Like PT until they overdid did with machines [facility] Physical Therapy in [place] Past 06/14/19 Malu De is a 43 [...] is, the harder to breath. She would [id number] advil at once, upset her stomach, so [...] subsequently referred to the Rheumatology Clinic at [facility] for further evaluation. ROS: Pulm Follows with [...] boyfriend who smokes.?? 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 [...] tolerated: cyclobenzaprine, elavil, cymbalta, indomethacin,tramadol, gabapentin, savella Pt to fill out her part of MMJ form and send in to me. Pt to trial turmeric 2000mg daily. Pt to try topical CBD. We discussed that we have limited number of treatment options left in terms of pharm. Could consider meloxicam (which she did not start as wants [...] Facing Action Plan Yes Rekha Coburn [facility] Note: Reduction in use of SMILEY to 1-2 nebulizer treatments per day. Measured by: Patient report Time frame: 6 months documented as of this encounter Visit Diagnoses Diagnosis Fibromyalgia Mylagia and myositis, unspecified documented in this encounter Care Teams Antique Clock Repairer Relationship Specialty Start Date End Date Brandee Fuchs APRN PCP - General Family Medicine 01/17/19 documented as of this encounter
--- OUTSIDE RECORDS SUMMARY | 2024-05-14 03:37 | XMS_ITS | Encounter Summary ---
Author [facility] [address] Care Team Providers Care Tuft Machine Operator Name Role Phone Brandee Fuchs APRN Primary Care Provider [phone] Encounter Details Date Type Department Care Team (Late st Contact Info) Description 02/05/2020 Orders Only Hematology [place] [address] Ashok Hernandez MD [facility] HEMATOLOGY [place] [address] Iron deficiency anemia, unspecified iron deficiency anemia [...] type documented in this encounter Care Teams Tuft Machine Operator Relationship Specialty Start Date End Date Brandee Fuchs APRN PCP - General Family Medicine 01/17/19 documented as of this encounter
--- OUTSIDE RECORDS SUMMARY | 2024-05-14 03:37 | XMS_ITS | Encounter Summary ---
Author Organization [facility] [place] [address] Care Team Providers Care Mending Carrier Name Role Phone Brandee Fuchs APRN Primary Care Provider [phone] Encounter Details Date Type Department Care Team (Late st Contact Info) Description 06/02/2020 Telephone [place] [phone] Maura Skaggs Social History Tobacco Use Types Packs/Day Years [...] Type Associated Problems Recent Progress Patient-Stated? Author [facility] Medication Compliance and Understanding Patient Facing Action Plan Yes Rekha Coburn, [facility] Note: Reduction in use of SMILEY to 1-2 nebulizer treatments per day. Measured by: Patient report Time frame: 6 months documented as of this encounter Visit Diagnoses Not on filedocumented in this encounter Care Teams Mending Carrier Relationship Specialty Start Date End Date Brandee Fuchs APRN PCP - General Family Medicine 01/17/19 documented as of this encounter
--- OUTSIDE RECORDS SUMMARY | 2024-05-14 03:37 | XMS_ITS | Encounter Summary ---
Author Organization [facility] [place] [address] Care Team Providers Care Store Merchandiser Name Role Phone Brandee Fuchs APRN Primary Care Provider [phone] Encounter Details Date Type Department Care Team (Late st Contact Info) Description 02/13/2020 Telephone Hematology/Oncology at [address] [phone] Alyssa Darling Social History Tobacco Use Types [...] * Telephone Encounter - Alyssa Darling - 02/13/2020 [...] on filedocumented in this encounter Care Teams Store Merchandiser Relationship Specialty Start Date End Date Brandee Fuchs APRN PCP - General Family Medicine 01/17/19 documented as of this encounter
--- OUTSIDE RECORDS SUMMARY | 2024-05-14 03:37 | XMS_ITS | Encounter Summary ---
Author Organization [facility] Address [facility] [place] [address] Care Team Providers Care Database Marketing Manager Name Role Phone DanielBrandee huynh Obdulia GAMBLE Primary Care Provider [phone] Reason for Referral * Consultation (Routine) - Specialty Diagnoses / Procedures Referred By Adryan marin Referred To Contact Sleep Center Diagnoses Snoring Procedures PRG HOME SLEEP TEST TYPE 3 PORTABLE Emma Johnson MD [facility] [place] [address] [facility] [address] [place] [address] Referral ID Status Reason Start Date Expiration Date V isits Requested Visits Authorized [id number] Test Only 02/27/2020 02/26/2021 1 1 Encounter Details Date Type Department Care Team (Late st Contact Info) Description 02/27/2020 12:00 PM EDT TH Visit (TeleHealth) Sleep Center at [facility] [address] [place] [address] Emma Johnson MD [facility] [place] [address] Snoring (Primary Dx) Social History Tobacco Use Types [...] kg (185 lb) 02/26/2020 2:02 PM EDT p t reported Height 154.9 cm (5' 1) 02/26/2020 2:02 PM EDT Body Mass Index 34.96 02/26/2020 2:02 PM EDT documented in this encounter Progress Notes * Emma Johnson MD - 02/27/2020 12:00 PM EDT Sleep Medicine Follow-Up Note - Telephone Note due to COVID 19 Patient location: [place], [place] Provider location: [place] Chief Complaint: ? ROSALVA HPI: Ms. 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 On weekends, 7-8 am. Lies down, doesn't sleep, every day Can stand up and do stuff for a little while, but then needs to sit, but then needs to lie down. Pain causes her to do this. Maybe an hour total. Questionnaires: Patient-reported scores: [facility] 11/29/2019 [facility] - Insomnia Severity Index - VR12 - Physical Component Summary 19.08 VR12 - Mental Component Summary 48.74 [facility] 08/17/2017 11/29/2019 [facility] 8 - Insomnia Severity Index Incomplete - VR12 - Physical Component Summary 18.27 19.08 VR12 - Mental Component Summary 39.96 48.74 Daytime Symptoms: Naps: denies, but lies down in the day Involuntary Dozing: no Driving: Exhausted feeling (all the time, years), doesn't drive if actually sleepy and only when has to . Patient Active Problem List Diagnosis Code [...] (NASACORT OR NASACORT OTC) 55 mcg Aerosol, [place] 2 sprays by Nasal route daily. ??? [...] now care is complicated by COVID-19. In labsleep testing is delayed at this point. Home sleep testing is not ideal given her insomnia symptoms, highly disrupted sleep, and underlying pulmonary disease. We discussed the pros and cons in detail- she was agreeable to starting with a home sleep apnea test first. If non-diagnostic, then proceedto in lab testing. If positive, will need to consider if it would be appropriate to proceed to AUTOPAP or wait for a formal titration study. Time spent [...] Ordered: 02/27/2020 documented as of this encounter Visit Diagnoses Diagnosis Snoring- Primary Other dyspnea and respiratory abnormality documented in this encounter Care Teams Database Marketing Manager Relationship Specialty Start Date End Date Brandee Fuchs APRN PCP - General Family Medicine 01/17/19 documented as of this encounter
--- OUTSIDE RECORDS SUMMARY | 2024-05-14 03:37 | XMS_ITS | Encounter Summary ---
[place] [address] Care Team Providers Care Alumina Refinery Operator Name Role Phone Brandee Fuchs APRN Primary Care Provider [phone] Encounter Details Date Type Department Care Team (Late st Contact Info) Description 10/23/2019 [place] [address] Melisa Montgomery Social History Tobacco Use Types Packs/Day Years [...] on filedocumented in this encounter Care Teams Alumina Refinery Operator Relationship Specialty Start Date End Date Brandee Fuchs APRN PCP - General Family Medicine 01/17/19 documented as of this encounter
--- OUTSIDE RECORDS SUMMARY | 2024-05-14 03:37 | XMS_ITS | Encounter Summary ---
Author Organization [facility] [place] [address] Care Team Providers Care Boat Tender Name Role Phone DanielBrandee huynh Obdulia GAMBLE Primary Care Provider [phone] Reason for Visit * Reason Onset Date Comments Medication Refill 04/10/2020 Encounter Details Date Type Department Care Team (Late st Contact Info) Description 04/10/2020 [place] [address] Nuha Dubon MD [facility] [place] [address] Social History Tobacco Use Types Packs/Day Years [...] on filedocumented in this encounter Care Teams Boat Tender Relationship Specialty Start Date End Date Brandee Fuchs APRN PCP - General Family Medicine 01/17/19 documented as of this encounter
--- OUTSIDE RECORDS SUMMARY | 2024-05-14 03:37 | XMS_ITS | Encounter Summary ---
[place] [address] Care Team Providers Care Dust Box Worker Name Role Phone Brandee Fuchs APRN Primary Care Provider [phone] Encounter Details Date Type Department Care Team (Late st Contact Info) Description 04/02/2020 Telephone [place] [phone] Jaimie Simmons LNA Social History Tobacco Use [...] on filedocumented in this encounter Care Teams Dust Box Worker Relationship Specialty Start Date End Date Brandee Fuchs APRN PCP - General Family Medicine 01/17/19 documented as of this encounter
--- OUTSIDE RECORDS SUMMARY | 2024-05-14 03:37 | XMS_ITS | Encounter Summary ---
Author Organization [facility] [address] Care Team Providers Care Tank Calibrator Name Role Phone Brandee Fuchs APRN Primary Care Provider [phone] Encounter Details Date Type Department Care Team (Late st Contact Info) Description 01/09/2020 Telephone Hematology/Oncology at [address] [phone] Bennie Webb Social History Tobacco Use Types Packs/Day [...] encounter Miscellaneous Notes * Telephone Encounter - Bennie Webb - 01/09/2020 [...] on filedocumented in this encounter Care Teams Tank Calibrator Relationship Specialty Start Date End Date Brandee Fuchs APRN PCP - General Family Medicine 01/17/19 documented as of this encounter
--- OUTSIDE RECORDS SUMMARY | 2024-05-14 03:37 | XMS_ITS | Encounter Summary ---
Author Organization [facility] [place] [address] Care Team Providers Care Director Foundation Name Role Phone Brandee Fuchs APRN Primary Care Provider [phone] Encounter Details Date Type Department Care Team (Late st Contact Info) Description 04/21/2020 [place] [phone] Indira Kerns Social History Tobacco Use Types [...] on filedocumented in this encounter Care Teams Director Foundation Relationship Specialty Start Date End Date Brandee Fuchs APRN PCP - General Family Medicine 01/17/19 documented as of this encounter
--- OUTSIDE RECORDS SUMMARY | 2024-05-14 03:37 | XMS_ITS | Encounter Summary ---
Author Organization [facility] [place] [place] [address] Care Team Providers Care Drop Forge Operator Name Role Phone Brandee Fuchs APRN Primary Care Provider [phone] Encounter Details Date Type Department Care Team (Latest Contact Info) Description 05/29/2020 2:45 PM EDT TH Visit (TeleHealth) Pain [place] [address] Jodi Mckeon, [facility] [address] Fibromyalgia; Psychological factor affecting physical condition Social History [...] as of this encounter Progress Notes * Jodi Mckeon PsyD - 05/29/2020 2:45 PM EDT Behavioral Medicine - [facility] Follow up Name: Malu Arias Santino Patient's age: 44 y.o. Date: 03/24/2020 Duration of appt: 60 min PP; c/o multisite diffuse pain secondary to comorbid Sofy-Danlos syndrome and fibromyalgia, (notethat problem list only specifies asthma, and it is not clear what type of EDS Ms. De has been dx'd with - it appears that many of Ms. De's active diagnoses have been resolved in her problem list by a Pharmacy provider, for reasons that are unclear. ). SUMMARY: 44 y.o. year old single white female from [facility] with hx of Ehler's Danlos syndrome and fibromyalgia referred by Rick Reynaga MD. Seen today in person for follow-up as she is not able toreliably engage in telehealth due to poor internet connectivity. Pt struggling with ongoing pain ins/o multiple psychosocial stressors and comorbid health conditions [...] extremely low levels of energy, strength, and endurance.??She did not [...] and get along with other people.?? Malu wasscreened for suicidal ideation, which she denied. Today's [...] setting therapeutic goals as we have not beenable to meet consistently, but also due to patients considerable reluctance to discuss her emotional experience. Assessment It has been frustrating for Ms. De because the agreed-upon schedule of appointments was not entered into the system for unclear reasons, and her last in-person appointment needed to be cancelled due to this communications writer's unexpected personal family matter. At this stage, she feels quite stuck and is pre- contemplative about her ability to make changes that could improve her pain experience. She may benefit from an evaluation with Tc Meredith DPT, who might be able to suggest a home exercise program that could begin to address fibromyalgia concerns while also being safe for EDS (it is unclear to this communications writer if patient's joint pain related to EDS is harmful or also part of her chronic pain picture. It is also unfortunate that she has been unable to address her sleep concerns, as poor sleep often is a significant element of increased pain levels of fibromyalgia. PLAN: Malu agreed to follow up phone appointment. I will also try to coordinate a joint in person appointment with Tc Meredith DPT. Next appt focused on PHI and treatment planning. She will be provided a copy of the Personal healthinventory by email but also in the mail. documented in this encounter Plan of Treatment Not on file documented as of this encounter Goals Goal Patient Goal Type Associated Problems Recent Progress Patient-Stated? Author [facility] Medication Compliance and Understanding Patient Facing Action Plan Yes Rekha Coburn, [facility] Note: Reduction in use of SMILEY to 1-2 nebulizer treatments per day. Measured by: Patient report Time frame: 6 months documented as of this encounter Visit Diagnoses Diagnosis Fibromyalgia Mylagia and myositis, unspecified Psychological factor affecting physical condition Psychic factors associated with diseases classified elsewhere documented in this encounter Care Teams Drop Forge Operator Relationship Specialty Start Date End Date Brandee Fuchs, MAVIS PCP - General Family Medicine 01/17/19 documented as of this encounter
--- OUTSIDE RECORDS SUMMARY | 2024-05-14 03:37 | XMS_ITS | Encounter Summary ---
Author Organization [facility] [place] [address] Care Team Providers Care Lining Folder Name Role Phone Brandee Fuchs APRN Primary Care Provider [phone] Encounter Details Date Type Department Care Team (Late st Contact Info) Description 03/13/2020 Telephone Pain [place] [phone] Carrier, Renetta V, ACQUISITION SPECIALIST Social History Tobacco Use Types Packs/Day Years [...] on filedocumented in this encounter Care Teams Lining Folder Relationship Specialty Start Date End Date Brandee Fuchs APRN PCP - General Family Medicine 01/17/19 documented as of this encounter
--- OUTSIDE RECORDS SUMMARY | 2024-05-14 03:37 | XMS_ITS | Encounter Summary ---
Author Organization [facility] Address [facility] [place] [address] Care Team Providers Care Mushroom Packer Name Role Phone DanielBrandee huynh Obdulia GAMBLE Primary Care Provider [phone] Reason for Referral * Diagnostic Test (Routine) - Closed Specialty Diagnoses / Procedures Referred By Adryan marin Referred To Contact Sleep Center Diagnoses Snoring Procedures PRG POLYSOM 6+ YRS SLEEP W 4+ ADDL DARIO ATTND Emma Johnson MD [facility] [place] [address] [facility] Sleep [facility] [address] [place] [address] Referral ID Status Reason Start Date Expiration Date V isits Requested Visits Authorized [id number] Closed Test Only 04/17/2020 04/17/2021 1 1 Encounter Details Date Type Department Care Team (Late st Contact Info) Description 04/17/2020 Orders Only Sleep Center at [facility] [address] [place] [address] Emma Johnson MD [facility] [place] [address] Snoring (Primary Dx) Social History [...] Disorders Center Outpatient Referral Routine Snoring Ordered: 04/17/2020 documented as of this encounter Goals [...] abnormality documented in this encounter Care Teams Mushroom Packer Relationship Specialty Start Date End Date Brandee Fuchs APRN PCP - General Family Medicine 01/17/19 documented as of this encounter
--- OUTSIDE RECORDS SUMMARY | 2024-05-14 03:37 | XMS_ITS | Encounter Summary ---
Author Organization [facility] [place] [address] Care Team Providers Care Supervisor Cigar Making Hand Name Role Phone Daniellino Brandee Steiner APRN Primary Care Provider [phone] Reason for Visit * Reason Comments IV Medication Venofer Encounter Details Date Type Department Care Team (Late st Contact Info) Description 02/21/2020 8:30 AM EDT Infusion Hematology Oncology at [address] [phone] Iron deficiency anemia, unspecified iron deficiency anemia [...] 36.5 ??C (97.7 ??F) 02/21/2020 8:51 AM ED T Respiratory Rate - - Oxygen Saturation 98% 02/21/2020 8:51 AM EDT Inhaled Oxygen Concentration - - Weight 89.9 kg (198 lb 3.1 oz) 02/21/2020 8:51 A M EDT Height 154.9 cm (5' 0.98) 02/21/2020 8:51 AM ED T Body Mass Index 37.47 02/21/2020 8:51 AM EDT documented in this encounter Progress Notes * Milla Griffin RN - 02/21/2020 8:30 AM EDT INFUSION THERAPY ADMINISTRATION NOTES DIAGNOSIS: Iron Deficiency REASON FOR VISIT: Venofer SUBJECTIVE Malu De offers no complaints. States she had nausea for about 4 days after last venofer. DrGautier made aware and script called to pharmacy [...] Date Dose Rate Site dexamethasone (DECADRON) injection 10 mg 10 mg, Intravenous, ONCE, 1 dose, On Rachel 02/21/20 at 0900 Given 02/21/2020 10:00 AM EDT 10 mg iron sucrose (Venofer) 300 mg in sodium chloride 0.9% 115 mL 300 mg, Intravenous, ONCE, 1 dose, On Rachel 02/21/20 at 0900, Administer over 90 Minutes, Week 2 Infusion, Outpatient Transfusion New Bag 02/21/2020 10:44 AM EDT 300 mg 76.7 mL /hr ondansetron (Zofran) tablet 8 mg 8 mg, Oral, ONCE, 1 dose, On Rachel 02/21/20 at 0900, Routine Given 02/21/2020 9:42 AM EDT 8 mg documented in this encounter Care Teams Supervisor Cigar Making Hand Relationship Specialty Start Date End Date Brandee Fuchs APRN PCP - General Family Medicine 01/17/19 documented as of this encounter
--- OUTSIDE RECORDS SUMMARY | 2024-05-14 03:37 | XMS_ITS | Encounter Summary ---
[place] [address] Care Team Providers Care Civil Engineer Land Development Name Role Phone Brandee Fuchs APRN Primary Care Provider [phone] Reason for Visit * Reason Onset Date Comments Follow-up 10/29/2019 Encounter Details Date Type Department Care Team (Late st Contact Info) Description 10/29/2019 Telephone [place] [address] Erica Garrison, RN Follow-up Social History Tobacco Use [...] on filedocumented in this encounter Care Teams Civil Engineer Land Development Relationship Specialty Start Date End Date Brandee Fuchs, MAVIS PCP - General Family Medicine 01/17/19 documented as of this encounter
--- OUTSIDE RECORDS SUMMARY | 2024-05-14 03:37 | XMS_ITS | Encounter Summary ---
Author Organization [facility] [place] [address] Care Team Providers Care Drum Puller Name Role Phone Brandee Fuchs APRN Primary Care Provider [phone] Encounter Details Date Type Department Care Team (Late st Contact Info) Description 05/02/2020 Tele[place] [phone] Silvano Lares Social History Tobacco Use Types [...] Miscellaneous Notes * Telephone Encounter - Silvano Larse - 05/02/2020 9:25 AM EDT LMOAM X1 to schedule 4 month f/u with Berkley Hernández documented in this encounter Plan of Treatment Not on file documented as of this encounter Goals Goal Patient Goal Type Associated Problems Recent Progress Patient-Stated? Author [facility] Medication Compliance and Understanding Patient Facing Action Plan Yes Rekha Coburn, [facility] Note: Reduction in use of SMILEY to 1-2 nebulizer treatments per day. Measured by: Patient report Time frame: 6 months documented as of this encounter Visit Diagnoses Not on filedocumented in this encounter Care Teams Drum Puller Relationship Specialty Start Date End Date Brandee Fuchs APRN PCP - General Family Medicine 01/17/19 documented as of this encounter
--- OUTSIDE RECORDS SUMMARY | 2024-05-14 03:37 | XMS_ITS | Encounter Summary ---
Author Organization [facility] [place] [address] Care Team Providers Care Soft Top Installer Name Role Phone Brandee Fuchs APRN Primary Care Provider [phone] Reason for Visit * Reason Comments IV Medication Venofer, 3rd of 3 do ses Encounter Details Date Type Department Care Team (Late st Contact Info) Description 02/28/2020 8:30 AM EDT Infusion Hematology Oncology at [address] [phone] Iron deficiency anemia, unspecified iron deficiency anemia [...] 36.4 ??C (97.5 ??F) 02/28/2020 8:33 AM ED T Respiratory Rate 20 02/28/2020 8:33 AM EDT Oxygen Saturation 98% 02/28/2020 8:33 AM EDT Inhaled Oxygen Concentration - - Weight - - Height - - Body Mass Index - - documented in this encounter Progress Notes * Apurva Presley RN - 02/28/2020 8:30 AM [...] Dose Rate Site dexamethasone (DECADRON) injection 4 mg 4 mg, Intravenous, ONCE, 1 dose, On Rachel 02/28/20 at 0845 Given 02/28/2020 8:47 AM EDT 4 mg iron sucrose (Venofer) 300 mg in sodium chloride 0.9% 115 mL 300 mg, Intravenous, ONCE, 1 dose, On Rachel 02/28/20 at 0900, Administer over 90 Minutes, Week 1 Infusion, Outpatient Transfusion New Bag 02/28/2020 8:58 AM EDT 300 mg 76.7 mL/ hr ondansetron (ZOFRAN) injection 4 mg 4 mg, Intravenous, ONCE, 1 dose, On Rachel 02/28/20 at 0845 Given 02/28/2020 8:48 AM EDT 4 mg documented in this encounter Care Teams Soft Top Installer Relationship Specialty Start Date End Date Brandee Fuchs APRN PCP - General Family Medicine 01/17/19 documented as of this encounter
--- OUTSIDE RECORDS SUMMARY | 2024-05-14 03:37 | XMS_ITS | Encounter Summary ---
Author Organization [facility] [place] [address] Care Team Providers Care Hazardous Material Specialist Name Role Phone DanielQue huynhdee Huynh APRN Primary Care Provider Reason for Visit * Reason Comments IV Medication Venofer, and antieme tics Encounter Details Date Type Department Care Team (Late st Contact Info) Description 02/07/2020 9:30 AM EDT Infusion Hematology Oncology at [address] [phone] Iron deficiency anemia, unspecified iron deficiency anemia [...] as of this encounter Progress Notes * Milla Griffin RN - 02/07/2020 9:30 AM EDT INFUSION THERAPY ADMINISTRATION NOTES DIAGNOSIS: Iron Deficiency REASON FOR VISIT: Venofer SUBJECTIVE Malu De offers no complaints. States has had nausea with previous venofer. Premeds given asordered with good effect OBJECTIVE LAB DATA: WNL [...] 1 dose, On Rachel 02/07/20 at 1000 Given 02/07/2020 10:01 AM EDT 10 mg iron sucrose (Venofer) 300 mg in sodium chloride 0.9% 115 mL 300 mg, Intravenous, ONCE, 1 dose, On Rachel 02/07/20 at 1000, Administer over 90 Minutes, Week 1 of 3 Infusions, Outpatient Transfusion New Bag 02/07/2020 10:35 AM EDT 300 mg 76.7 mL/hr ondansetron (Zofran) tablet 8 mg 8 mg, Oral, ONCE, 1 dose, On Rachel 02/07/20 at 1000, Routine Given 02/07/2020 10:01 AM EDT 8 mg documented in this encounter Care Teams Hazardous Material Specialist Relationship Specialty Start Date End Date Brandee Fuchs APRN PCP - General Family Medicine 01/17/19 documented as of this encounter
--- OUTSIDE RECORDS SUMMARY | 2024-05-14 03:37 | XMS_ITS | Encounter Summary ---
Author Organization [facility] [place] [address] Care Team Providers Care Energy Crop Farmer Name Role Phone Daniellino Brandee Steiner APRN Primary Care Provider [phone] Encounter Details Date Type Department Care Team (Late st Contact Info) Description 01/22/2020 Telephone [place] [address] Keyona Early Social History Tobacco Use Types Packs/Day Years [...] encounter Miscellaneous Notes * Telephone Encounter - Keyona Early - 01/22/2020 9:44 AM EDT Left message for patient to call back [phone]. Patient needs to be scheduled for [facility] (for 90 minutes) with Dr. Mckeon around 01/31/20. Please also add questionnaires. Appt note: PNE documented in this encounter Plan of Treatment Not on file documented as of this encounter Visit Diagnoses Not on filedocumented in this encounter Care Teams Energy Crop Farmer Relationship Specialty Start Date End Date Brandee Fuchs APRN PCP - General Family Medicine 01/17/19 documented as of this encounter
--- OUTSIDE RECORDS SUMMARY | 2024-05-14 03:37 | XMS_ITS | Encounter Summary ---
Author Organization [facility] [place] [address] Care Team Providers Care Comsec Manager Name Role Phone Brandee Fuchs APRN Primary Care Provider [phone] Encounter Details Date Type Department Care Team (Latest Contact Info) Description 03/24/2020 2:30 PM EDT Office Visit [place] [address] Jodi cMkeon, [place] [address] Psychological factor affecting physical condition Social History [...] Progress Notes * Jodi Mckeon PsyD - 03/24/2020 2:30 PM EDT Behavioral Medicine - [facility] Follow up Name: Malu Arias Santino Patient's age: 44 y.o. Date: 03/24/2020 Duration of appt: 60 min PP; c/o multisite diffuse pain secondary to comorbid Sofy-Danlos syndrome and fibromyalgia, (notethat problem list only specifies asthma, and it is not clear what type of EDS Ms. De has been dx'd with). SUMMARY: 44 y.o. year old single white female from [facility] with hx of Ehler's Danlos syndrome and [...] wasscreened for suicidal ideation, which she denied. ADDITIONAL PAIN ASSESSMENT COPING SKILLS Denies that she is depressed, but continues to struggle with grief. Could not specifically idnetifycoping skills, stating that she just isn't really sure how she gets through the day, She focuses ondoing the things that need to get one. [...] When she tries to sleep, she will repositionabout every 15 minutes. She sleeps for short [...] for 5-6 years. She will dose somewhat through the night. Typically gets out of bed around 5:30 or 6 to bring her roommate to work. Diet/Appetite: States that she eats on and off, typically will eat dinner. She is vegetarian, Sheenjoys vegetables, salads, tofu, rice. She sometimes has [...] because of changes to policy. Her new csw thinks that she has hypermobility, but is not sure about csw. States that she has some joints/bones that [...] try additional pain medication. She does not take the LDN, because her csw said that it was not effective with [...] based on patient-driven goals, and would include painneuroscience education and a cognitive-behavioral approach to learning [...] She states that she knew there was 'something more' going on than just her fibromyalgia. She has become more disabled over the years and she hashoped for years that there would be some sort of treatment, but that hasn't happened yet. Acknowledges that her fibro is bad, joint arthralgia, but [...] elsewhere documented in this encounter Care Teams Comsec Manager Relationship Specialty Start Date End Date Brandee Fuchs APRN PCP - General Family Medicine 01/17/19 documented as of this encounter
--- OUTSIDE RECORDS SUMMARY | 2024-05-14 03:37 | XMS_ITS | Encounter Summary ---
[place] [address] Care Team Providers Care Cab Driver Name Role Phone Brandee Fuchs APRN Primary Care Provider [phone] Encounter Details Date Type Department Care Team (Late st Contact Info) Description 04/21/2020 Telephone [place] [address] Keyona Early Social History Tobacco Use Types [...] * Telephone Encounter - Keyona Early - 04/21/2020 11:55 AM EDT Left message requesting patient call back [phone]. Her appointment with Dr. Mckeon on 04/29 [...] on filedocumented in this encounter Care Teams Cab Driver Relationship Specialty Start Date End Date Brandee Fuchs APRN PCP - General Family Medicine 01/17/19 documented as of this encounter
--- OUTSIDE RECORDS SUMMARY | 2024-05-14 03:37 | XMS_ITS | Encounter Summary ---
Author Organization [facility] [place] [address] Care Team Providers Care Cabinet Professional Name Role Phone Brandee Fuchs APRN Primary Care Provider [phone] Encounter Details Date Type Department Care Team (Late st Contact Info) Description 04/24/2020 Telephone [place] [address] Alyssa Barnhart Social History Tobacco Use Types [...] * Telephone Encounter - Alyssa Barnhart - 04/24/2020 9:20 AM EDT LVM to schedule weekly 30 min TOV apts w/Jodi until end may per DMP. See previous notes. documented in this encounter Plan of Treatment Not on file documented as of this encounter Goals Goal Patient Goal Type Associated Problems Recent Progress Patient-Stated? Author [facility] Medication Compliance and Understanding Patient Facing Action Plan Yes Rekha Coburn, [facility] Note: Reduction in use of SMILEY to 1-2 nebulizer treatments per day. Measured by: Patient report Time frame: 6 months documented as of this encounter Visit Diagnoses Not on filedocumented in this encounter Care Teams Cabinet Professional Relationship Specialty Start Date End Date Brandee Fuchs APRN PCP - General Family Medicine 01/17/19 documented as of this encounter
--- OUTSIDE RECORDS SUMMARY | 2024-05-14 03:38 | XMS_ITS | Encounter Summary ---
Author Organization [facility] [place] [address] Care Team Providers Care Shingle Sawyer Name Role Phone Lawson Whitaker MD Primary Care Provider [phone] Reason for Visit * Consultation (Routine) - Closed Specialty Diagnoses / Procedures Referred By Adryan marin Referred To Contact Hematology and Oncology Diagnoses Brandee Dominguez, [employer] [address] [place] [address] [facility] Hem Onc [address] [place] [address] Referral ID Status Reason Start Date Expiration Date Visits Re quested Visits Authorized [id number] Closed 04/25/2017 04/25/2018 1 1 Encounter Details Date Type Department Care Team (Late st Contact Info) Description 06/17/2017 10:00 AM EDT Office Visit Hematology [place] [address] Gabby Mccollum MD [facility] [address] HEMATOLOGY [place] [address] Anemia, unspecified type Social History Tobacco Use Types Packs/Day Years Used Date Smoking Tobacco: Former Cigarettes Q uit: 01/04/2003 Smokeless Tobacco: Never Alcohol Use Standard [...] Temperature - - Respiratory Rate 16 06/17/2017 10:3 6 AM EDT Oxygen Saturation 94% 06/17/2017 10: 36 AM EDT Inhaled Oxygen Concentration - - Weight 95.6 kg (210 lb 12.8 oz) 017 10:36 AM EDT Height 155 cm (5' 1.02) 06/17/2017 10: 36 AM EDT Body Mass Index 39.8 06/17/2017 10:36 AM EDT documented in this encounter Progress Notes * Gabby Mccollum MD - 06/17/2017 10:00 AM EDT Heme/Onc Outpatient Consultation Date of Consultation: 06/17/17 Reason for Consult: We are seeing this patient at the request of Brandee Roger, MAVIS [address] [place], [place] [address]for the evaluation of . I have reviewed the available records, interviewed andexamined the patient. HPI Malu De is a 41 y.o. female who was referred for evaluation for possible thalassemia. She was found to have a severe microcytic anemia in January and further testing revealed an iron deficiencyanemia. Ferritin was in the single digits. She [...] (NASACORT OR NASACORT OTC) 55 mcg Aerosol, Todd 2 sprays by Nasal route daily. No [...] kg (210 lb 12.8 oz) SpO2 94% BMI 39.8 kg/m2 General Appearance: Alert, cooperative, no distress, [...] symptoms (chronic diarrhea) GABBY MCCOLLUM MD 06/17/2017 * Gabby Mccollum MD - 06/17/2017 10:00 AM EDT Images from the original note were not included. [facility] HEMATOLOGY AND ONCOLOGY AT [facility] [id number] Date: 06/17/17 Patient Name: Malu De : 1975 Diagnosis: Iron deficiency anemia Referral to [site]: [facility] Orders: ? Electrolyte replacement: [x] Venofer 200mg IV twice a week x 5 doses Signature: GABBY MCCOLLUM MD beeper # [id number] Co-signature [if needed]: documented in this encounter Plan of Treatment Not on file documented as of this encounter Results * Celiac Sero [place] (06/17/2017 11:06 AM EDT) Celiac Sero [place] Test ?Result ?Flag ??Unit ?? RefValue Celiac Disease Serology [place] ??Immunoglobulin A (IgA), S ? 301 ? mg/dL ??61 - 356 ??Celiac Disease Interpretation ? SEE COMMENTS ?Negative serology. Celiac disease unlikely. However, ?approximately 10% of patients with celiac disease are ?seronegative. Also, patients who are already adhering to a ?gluten-free diet may be seronegative. If celiac disease is ?highly clinically suspected, consider HLA-DQ typing. ?Test Performed by: ?[facility] ?[address] [place], [place] [id number] [place] [address] LABORATORY Blood specimen (specimen) 06/17/2017 11:06 AM EDT 06/17/2017 12:25 PM EDT Narrative Resulting Agency Comment Spec In Lab Gabby Mccollum MD LAB SEND OUT ORDERAB LES [facility] [place] [address] * (ABNORMAL) Ferritin (06/17/2017 11:06 AM EDT) Ferritin 7(L) 15 - 150 ng/mL [facility] Comment: Pediatric reference ranges not verified at [facility], interpret with caution. Reference ranges for females greater than 50 years of age approach values for men, i.e., 30-400 ng/mL. Blood specimen (specimen) 06/17/2017 11:06 AM EDT 06/17/2017 11:13 AM EDT Narrative Resulting Agency Comment Spec In Lab Gabby Mccollum MD CHEMISTRY ORDERABLES [facility] [place] [address] documented in this encounter Visit Diagnoses Diagnosis Anemia, unspecified type documented in this encounter Care Teams Shingle Sawyer Relationship Specialty Start Date End Date Lawson Whitaker MD [address] [place] [address] PCP - General General Internal Medicine 06/11/1601/16 documented as of this encounter
--- OUTSIDE RECORDS SUMMARY | 2024-05-14 03:38 | XMS_ITS | Encounter Summary ---
Author Organization [facility] Address [address] [place] [address] Care Team Providers Care Community Chest Officer Name Role Phone Lawson Whitaker MD Primary Care Provider [phone] Encounter Details Date Type Department Care Team (Latest Contact Info) Description 03/17/2018 15:42 EDT - 03/17/2018 23:59 EDT Hospital Encounter [address] [address] Unknown, Provider, Discharge Disposition: Home or Self Care Social History Tobacco Use Types Packs/Day Years Used Date Smoking Tobacco: Never Assessed Sex and Gender Information Value Date Recorded Sex Assigned at Not on file Gender Identity Not on file Sexual Orientation Not on file documented as of this encounter Discharge Disposition Disposition Code Departure Means Destination Home or Self Senior Living documented in this encounter Plan of Treatment Not on file documented as of this encounter Visit Diagnoses Not on filedocumented in this encounter Care Teams Community Chest Officer Relationship Specialty Start Date End Date Lawson Whitaker MD [address] [place] [address] PCP - General 03/26/15 documented as of this encounter
--- OUTSIDE RECORDS SUMMARY | 2024-05-14 03:38 | XMS_ITS | Encounter Summary ---
Author Organization [facility] [place] [address] Care Team Providers Care Tapper Balance Wheel Screw Hole Name Role Phone Lawson Whitaker MD Primary Care Provider [phone] Encounter Details Date Type Department Care Team (Late st Contact Info) Description 09/16/2017 Telephone Sleep Center at [facility] [address] [place] [address] Denice Carlson Social History Tobacco Use Types Packs/Day Years [...] encounter Miscellaneous Notes * Telephone Encounter - Denice Carlson - 09/16/2017 10:59 AM EST Please write the sleep study order for your patient, scheduled on 09/21. Thank you, Denice documented in this encounter Plan of Treatment Not on file documented as of this encounter Visit Diagnoses Not on filedocumented in this encounter Care Teams Tapper Balance Wheel Screw Hole Relationship Specialty Start Date End Date Lawson Whitaker MD [address] [place] [address] PCP - General General Internal Medicine 06/11/1601/16 documented as of this encounter
--- OUTSIDE RECORDS SUMMARY | 2024-05-14 03:38 | XMS_ITS | Encounter Summary ---
Author [facility] [place] [address] Care Team Providers Care Wood Furniture Assembler Name Role Phone Brandee Fuchs APRN Primary Care Provider [phone] Reason for Visit * Reason Onset Date Comments Medication Refill 06/26/2019 maria luisa Encounter Details Date Type Department Care Team (Late st Contact Info) Description 06/26/2019 Refill Hematology [place] [address] Ashok Hernandez MD [facility] DR HEMATOLOGY [place] [address] Social History Tobacco Use Types Packs/Day Years [...] filedocumented in this encounter Care Teams Wood Furniture Assembler Relationship Specialty Start Date End Date Brandee Fuchs APRN PCP - General Family Medicine 01/17/19 documented as of this encounter
--- OUTSIDE RECORDS SUMMARY | 2024-05-14 03:38 | XMS_ITS | Encounter Summary ---
Author Organization [facility] Address [facility] [place] [address] Care Team Providers Care Cash Register Mechanic Name Role Phone Lawson Whitaker MD Primary Care Provider [phone] Reason for Visit * Consultation (Routine) - Closed Specialty Diagnoses / Procedures Referred By Adryan marin Referred To Contact Neurology Diagnoses Diffuse pain Numbness and tingling Jm Camargo MD [facility] [place] [address] [facility] [address] [place] [address] Referral ID Status Reason Start Date Expiration Date V isits Requested Visits Authorized [id number] Closed Consult, Test & Treat 10/26/2016 10/26/2017 1 1 Encounter Details Date Type Department Care Team (Latest Contact Info) Description 01/04/2017 9:30 AM EDT Procedure [place] [address] Tico Elizalde MD [facility] [place] [address] Small fiber neuropathy Social History Tobacco Use Types Packs/Day Years [...] cm (5' 1.5) 01/04/2017 9:12 AM EDT reported Body Mass Index 37.55 01/04/2017 9:12 AM EDT documented in this encounter Progress Notes * Tico Elizalde MD - 01/04/2017 9:30 AM EDT Malu De here for for bilevel skin biopsy at the request of Dr. Jm Camargo for question ofsmall fiber neuropathy. Patient identified. Consent form signed. [...] Procedure Name Priority Date/Time Associated Diagnosis Comments SURGICAL PATHOLOGY REPORT Routine 01/04/2017 12:44 PM EDT [facility] SENDOUT Routine 01/04/2017 9:45 AM EDT [facility] SENDOUT Routine 01/04/2017 9:45 AM EDT documented in this encounter Results * Surgical Pathology Report (01/04/2017 12:44 PM EDT) Final Diagnosis [id number] ?Location: The signing pathologist has (i) examined the relevant preparation(s) for the specimen(s) and (ii) rendered or confirmed the diagnosis(es). . ? Addendum ADDENDUM DISCUSSION SPECIAL TEST PERFORMED: Test: ??Sweat Gland Nerve Fiber Density Test [facility] [place] Case: ??[id number] Performing Lab: ??[facility] Performing Lab Case: ??[id number] Reported by Jennifer Barnes MD Date reported: ??01/17/2017 For the full text of the [facility] reports please refer to Non-DH Documentation Pathology in the electronic health record (eDH). Electronically signed by: ??Emmy Bhandari MD Verified: ??01/19/2017 ?Pathologist ? Addendum ADDENDUM DISCUSSION SPECIAL TEST PERFORMED: Test: ??Epidermal Nerve Fiber Density Test [facility] Case: ??[id number] Performing Lab: ??[facility] Performing Lab Case: ??[id number] Reported by Shyla Mccurdy MD Date reported: ??01/11/2017 For the full text of the [facility] reports please refer to Non-DH Documentation Pathology in the electronic health record (eDH). Electronically signed by: ??Emmy Bhandari MD Verified: ??01/13/2017 ?Pathologist ?Surgical Pathology DIAGNOSIS Received are 2 skin punch biopsies which are submitted to [facility] for epidermal nerve fiber density testing. ??See separate report from [facility]. Electronically signed by: ??Emmy Bhandari MD Verified: ??01/04/2017 ?Pathologist DISCUSSION No histologic sections are performed at [facility]. CLINICAL INFORMATION Specimen Submitted: Received are 2 skin punch biopsies which are submitted to [facility] for epidermal nerve fiber density testing. ??See separate report from [facility]. Clinical History: _ . SPECIMEN PROCESSING Received are 2 skin punch biopsies which are submitted to [facility] for epidermal nerve fiber density testing. [facility] [address] [place] [address] ??[id number] 01/19/2017 9:03 AM EDT [facility] SPECIMEN FROM SKIN / Unknown 01/04/2017 12:44 PM EDT 01/04/2017 12:44 PM EDT Tico Elizalde MD PATHOLOGY/CYTOLOGY O RDERABLES Performing Organization Address [facility]/[place] [address] * [facility] (01/04/2017 9:45 AM EDT) [facility] Sendout See Note [facility] Comment: The ordered test is: Sweat Gland Nerve Fiber Density Test performed by: [facility]; [address] [place] [id number] See Scanned Report. Specimen of unknown material (specimen) Other / Unknown 01/04/2017 9:45 AM EDT 01/18/2017 2:10 PM EDT Tico Elizalde MD LAB SEND OUT ORDERAB LES Performing Organization Address City/[facility]/[place] [address] * [facility] Sendout (01/04/2017 9:45 AM EDT) [facility] Sendout See Note [facility] Comment: The ordered test is: Epidermal Nerve Fiber Density Test performed by: [facility]; [address] [place] [id number] See Scanned Report. Specimen of unknown material (specimen) Other / Unknown 01/04/2017 9:45 AM EDT 01/04/2017 1:07 PM EDT Tico Elizalde MD LAB SEND OUT ORDERAB LES [facility] [place] [address] documented in this encounter Visit Diagnoses Diagnosis Small fiber neuropathy Unspecified hereditary and idiopathic peripheral neuropathy documented in this encounter Care Teams Cash Register Mechanic Relationship Specialty Start Date End Date Lawson Whitaker MD [address] [place] [address] PCP - General General Internal Medicine 06/11/1601/16 documented as of this encounter
--- OUTSIDE RECORDS SUMMARY | 2024-05-14 03:38 | XMS_ITS | Encounter Summary ---
Author Organization [facility] Address [facility] [place] [address] Care Team Providers Care Account Development Executive Name Role Phone Lawson Whitaker MD Primary Care Provider [phone] Encounter Details Date Type Department Care Team (Latest Contact Info) Description 09/13/2016 11:46 AM EST - 09/13/2016 11:59 PM [facility] Hospital Encounter XRay at [address] [place] [address] Jm Camargo MD [facility] [place] [address] Neck pain; Chronic midline low back pain without sciatica Discharge Disposition: Home Social History Tobacco Use Types Packs/Day Years Used Date Smoking Tobacco: Former Sex and Gender Information Value Date Recorded Sex Assigned at Not on file Gender Identity Not on file Sexual Orientation Not on file documented as of this encounter Medications at Time of Discharge Medication Sig Dispensed Refills Start Date End Date albuterol (PROVENTIL) 2.5 mg /3 mL (0.083 [...] (NASACORT OR NASACORT OTC) 55 mcg Aerosol, [place] 2 sprays by Nasal route daily. ALPRAZolam (XANAX) 0.25 mg Tablet Take 0.25 mg by mouth as needed. 0 06/08/2016 06/14/2019 sertraline (ZOLOFT) 100 mg Tablet Take 150 mg by mouth daily. 0 09/10/2016 05/31/2019 documented as of this encounter Plan of Treatment Not on file documented as of this encounter Procedures Procedure Name Priority Date/Time Associated Diagnosis Comments XR CERVICAL, THORACIC AND LUMBAR SPINE AP AND LAT Routine 09/13/2016 12:14 PM EST Neck pain Chronic midline low back pain without sciatica documented in this encounter Results * XR Cervical Thoracic & Lumbar Spine AP & Lat (09/13/2016 12:14 PM EST) Anatomical Region Laterality Modality N/A Digital Radiogra phy Impressions 09/13/2016 2:02 PM EST 1. ??No [...] No fracture. Normal disc height and pedicles. Lumbar spine- Number of lumbar-type vertebrae: 5 Vertebral bodies: Normal vertebral height. No vertebral fracture. Tiny osteophytes arise from scattered vertebral bodies. There is minimal L5-S1 facet arthropathy. Disk spaces: Normal. Soft tissues: Normal. ?? Alignment: No subluxation Procedure Note Romana Ceja MD - 09/13/2016 EXAMINATION: XR CERVICAL THORACIC AND LUMBAR SPINE AP AND LAT CLINICAL HISTORY: neck pain + upper back pain + low back pain TECHNIQUE: COMPARISON: None FINDINGS: Cervical spine- C1 to bottom of C6 are visualized. There is loss of normal cervicallordosis. Vertebral bodies: Normal vertebral height. No vertebral fracture. Disk spaces: Normal. Soft tissues: Normal. Alignment: No subluxation Thoracic spine- No fracture. Normal disc height and pedicles. Lumbar spine- Number of lumbar-type vertebrae: 5 Vertebral bodies: Normal vertebral height. No vertebral fracture. Tiny osteophytes arise from scattered vertebral bodies. There is minimal L5-C3pqama arthropathy. Disk spaces: Normal. Soft tissues: Normal. Alignment: No subluxation IMPRESSION 1. No vertebral body fracture. 2. Loss of normal cervical lordosis. 3. L5-S1 minimal facet arthropathy. Jm Camargo MD IMG DX ORDERABLES documented in this encounter Visit Diagnoses Diagnosis Neck pain Cervicalgia Chronic midline low back pain without sciatica documented in this encounter Care Teams Account Development Executive Relationship Specialty Start Date End Date Lawson Whitaker MD [address] [place] [id number] PCP - General General Internal Medicine 06/11/1601/16 documented as of this encounter
--- OUTSIDE RECORDS SUMMARY | 2024-05-14 03:38 | XMS_ITS | Encounter Summary ---
Author Organization [facility] [place] [address] Care Team Providers Care Top Inventory Control Executive Name Role Phone Lawson Whitaker MD Primary Care Provider [phone] Encounter Details Date Type Department Care Team (Late st Contact Info) Description 10/28/2016 [place] [address] Brenda Raymundo LPN Social History Tobacco Use Types Packs/Day Years Used Date Smoking Tobacco: Former Sex and Gender Information Value Date Recorded Sex Assigned at Not on file Gender Identity Not on file Sexual Orientation Not on file documented as of this encounter Miscellaneous Notes * Telephone Encounter - Brenda Raymundo LPN - [...] on filedocumented in this encounter Care Teams Top Inventory Control Executive Relationship Specialty Start Date End Date Lawson Whitaker MD [address] [place] [address] PCP - General General Internal Medicine 06/11/1601/16 documented as of this encounter
--- OUTSIDE RECORDS SUMMARY | 2024-05-14 03:38 | XMS_ITS | Encounter Summary ---
Author [place] [address] Care Team Providers Care Ultra Sound Technician Name Role Phone Lawson Whitaker MD Primary Care Provider [phone] Reason for Referral * Consultation (Routine) - Closed Specialty Diagnoses / Procedures Referred By Adryan marin Referred To Contact Pulmonology Diagnoses Moderate persistent asthma, unspecified whether complicated Gabby Mccollum MD [facility] DR HEMATOLOGY [place] [address] [facility] [address] [place] [id number] Referral ID Status Reason Start Date Expiration Date V isits Requested Visits Authorized [id number] Closed Consult, Test & Treat 08/05/2017 08/05/2018 1 1 Reason for Visit * Reason Comments Follow-up Encounter Details Date Type Department Care Team (Late st Contact Info) Description 08/05/2017 2:00 PM EDT Office Visit Hematology [place] [phone] Gabby Mccollum MD [facility] HEMATOLOGY [place] [address] Moderate persistent asthma, unspecified whether complicated Social History Tobacco Use Types Packs/Day Years [...] kg (212 lb 3.2 oz) 08/05/2017 2:18 P M EDT Height 157.3 cm (5' 1.93) 08/05/2017 2:18 PM ED T Body Mass Index 38.9 08/05/2017 2:18 PM EDT documented in this encounter Progress Notes * Gabby Mccollum MD - 08/05/2017 2:00 PM [...] (NASACORT OR NASACORT OTC) 55 mcg Aerosol, [place] 2 sprays by Nasal route daily. ??? [...] 37 ??C (98.6 ??F) (Temporal) Resp 21 Ht157.3 cm (5' 1.93) Wt 96.3 kg (212 [...] in the waiting room right before seeing me and there is still quite a bit of wheezing on exam -I feel fatigue may be more related to pulmonary process rather than Hgb particularly at this pointsince Hgb has normalized ans she does not feel any better. -Pulmonary consult placed and PFTs ordered GABBY MCCOLLUM MD 08/05/2017 documented in this encounter Plan of Treatment Scheduled Referrals Name Type Priority Associated Diagnoses Orde r Schedule Referral to Pulmonology Outpatient Referral Routine Moderate persistent asthma, unspecified whether complicated Ordered: 08/05/2017 documented as of this encounter Visit Diagnoses Diagnosis Moderate persistent asthma, unspecified whether complicated documented in this encounter Care Teams Ultra Sound Technician Relationship Specialty Start Date End Date Lawson Whitaker MD [address] [place] [id number] PCP - General General Internal Medicine 06/11/1601/16 documented as of this encounter
--- OUTSIDE RECORDS SUMMARY | 2024-05-14 03:38 | XMS_ITS | Encounter Summary ---
[place] [address] Care Team Providers Care Research Consultant Name Role Phone Brandee Fuchs APRN Primary Care Provider [phone] Encounter Details Date Type Department Care Team (Late st Contact Info) Description 07/31/2019 [place] [phone] Melisa Montgomery Social History Tobacco Use Types [...] on filedocumented in this encounter Care Teams Research Consultant Relationship Specialty Start Date End Date Brandee Fuchs APRN PCP - General Family Medicine 01/17/19 documented as of this encounter
--- OUTSIDE RECORDS SUMMARY | 2024-05-14 03:38 | XMS_ITS | Encounter Summary ---
Author Organization [facility] Address [address] [place] [address] Care Team Providers Care Production Machine Tender Name Role Phone Lawson Whitaker MD Primary Care Provider [phone] Encounter Details Date Type Department Care Team (Late st Contact Info) Description 12/14/2019 Lab Requisition [facility] Pathology & Laboratory Medicine - Main [address] [place] [address] [address] Unknown, Provider, Social History Tobacco Use Types Packs/Day Years Used Date Smoking Tobacco: Never Assessed Sex and Gender Information Value Date Recorded Sex Assigned at Not on file Gender Identity Not on file Sexual Orientation Not on file documented as of this encounter Plan of Treatment Not on file documented as of this encounter Procedures Procedure Name Priority Date/Time Associated Diagnosis Comments TRANSFERRIN Routine 12/13/2019 10:55 EST documented in this encounter Results * TRANSFERRIN (12/13/2019 10:55 EST) Transferrin 313 201 - 352 mg/dL 12/17/2019 9:41 EDT [facility] Blood VENOUS BLOOD / Unknown 12/13/2019 10:55 EST 12/14/2019 15:42 EST Provider Unknown CHEMISTRY & BLOOD GA S ORDERABLES [facility] [address] [place] [address] documented in this encounter Visit Diagnoses Not on filedocumented in this encounter Additional Health Concerns Infection Onset Date Last Indicated Resolved Time COVID-19 09/27/2022 09/27/2022 10/17/2022 22:1 5 EST documented as of this encounter Care Teams Production Machine Tender Relationship Specialty Start Date End Date Lawson Whitaker MD [address] [place] [address] PCP - General 03/26/15 documented as of this encounter
--- OUTSIDE RECORDS SUMMARY | 2024-05-14 03:38 | XMS_ITS | Encounter Summary ---
Author Organization [facility] [place] [address] Care Team Providers Care Investment Banking Analyst Name Role Phone Lawson Whitaker MD Primary Care Provider [phone] Encounter Details Date Type Department Care Team (Late st Contact Info) Description 12/13/2016 Telephone [place] [address] Indira Kerns Social History Tobacco Use Types Packs/Day Years Used Date Smoking Tobacco: Former Sex and Gender Information Value Date Recorded Sex Assigned at Not on file Gender Identity Not on file Sexual Orientation Not on file documented as of this encounter Miscellaneous Notes * Telephone Encounter - Indira Kerns - 12/13/2016 8:07 AM EST Called to reschedule appointments with Dr.s Camargo and Fide. Left msg on voicemail. documented in this encounter Plan of Treatment Not on file documented as of this encounter Visit Diagnoses Not on filedocumented in this encounter Care Teams Investment Banking Analyst Relationship Specialty Start Date End Date Lawson Whitaker MD [address] [place] [address] PCP - General General Internal Medicine 06/11/1601/16 documented as of this encounter
--- OUTSIDE RECORDS SUMMARY | 2024-05-14 03:38 | XMS_ITS | Encounter Summary ---
[place] [address] Care Team Providers Care Apprenticeship Training Representative Name Role Phone Lawson Whitaker MD Primary Care Provider [phone] Encounter Details Date Type Department Care Team (Late st Contact Info) Description 09/19/2017 Orders Only Sleep Center at [facility] [address] [place] [address] Emma Johnson MD [facility] [place] [address] Social History Tobacco Use Types Packs/Day Years [...] Progress Notes * Emma Johnson MD - 09/19/2017 12:23 PM [...] oxygen and titrate to keep at 87% orabove. Once stable on CPAP with CMS AHI < 10, discontinue oxygen to demonstrate ongoing need. If PAP started, start with humidification given her asthma. *Initiate CPAP/BPAP/oxygen per previously determined protocols unless otherwise specified. documented in this encounter Plan of Treatment Not on file documented as of this encounter Visit Diagnoses Not on filedocumented in this encounter Care Teams Apprenticeship Training Representative Relationship Specialty Start Date End Date Lawson Whitaker MD [address] [place] [id number] PCP - General General Internal Medicine 06/11/1601/16 documented as of this encounter
--- OUTSIDE RECORDS SUMMARY | 2024-05-14 03:38 | XMS_ITS | Encounter Summary ---
Author Organization [facility] [address] Care Team Providers Care Refrigeration Technician Name Role Phone Lawson Whitaker MD Primary Care Provider [phone] Encounter Details Date Type Department Care Team (Late st Contact Info) Description 01/11/2017 [place] [phone] Brenda Raymundo LPN Social History Tobacco Use [...] LPN - 01/11/2017 4:21 PM EDT ?? Hi Penny, Could you please let this pt know [...] on filedocumented in this encounter Care Teams Refrigeration Technician Relationship Specialty Start Date End Date Lawson Whitaker MD [address] [place] [id number] PCP - General General Internal Medicine 06/11/1601/16 documented as of this encounter
--- OUTSIDE RECORDS SUMMARY | 2024-05-14 03:38 | XMS_ITS | Encounter Summary ---
Author Organization [facility] [place] [address] Care Team Providers Care Rn Dialysis Name Role Phone Brandee Fuchs APRN Primary Care Provider [phone] Reason for Visit * Reason Onset Date Comments Nausea 06/26/2019 with oral iron Encounter Details Date Type Department Care Team (Late st Contact Info) Description 06/26/2019 Telephone Hematology/Oncology at [address] [phone] Korin Denise RN Nausea (with oral iron ) Social History Tobacco Use Types Packs/Day Years [...] encounter Miscellaneous Notes * Telephone Encounter - Korin Denise RN - 06/26/2019 1:39 PM EDT Called and spoke with Malu De regarding plan to take zofran prior to oral iron. She is aware to take it 1 hour prior to oral iron and reviewed side effects of constipation. She is in agreement with plan and advised to call and let us know how she tolerates this. * Telephone Encounter - Korin Denise RN - 06/26/2019 12:15 PM EDT Mlau De called to report she saw Dr Hernandez for her LATHA on 05/31/19 and started on oral ironsupplementation, taking it every other as day as prescribed. About an hour after she takes medication she because nauseous, vomits, and also reports diarrhea [...] 08/02/19. She mentioned that they discussed trying IV Iron again, along with premedication if her iron counts did not improve. She has not tried any antiemetics prior to taking oral iron. Will review with Dr Hernandez and call Malu with plan. documented in this encounter Plan of Treatment Not on file documented as of this encounter Visit Diagnoses Not on filedocumented in this encounter Care Teams Rn Dialysis Relationship Specialty Start Date End Date Brandee Fuchs APRN PCP - General Family Medicine 01/17/19 documented as of this encounter
--- OUTSIDE RECORDS SUMMARY | 2024-05-14 03:38 | XMS_ITS | Encounter Summary ---
Author Organization [facility] [place] [address] Care Team Providers Care Food Selector Name Role Phone Lawson Whitaker MD Primary Care Provider [phone] Encounter Details Date Type Department Care Team (Late st Contact Info) Description 06/17/2017 Telephone Hematology [place] [address] Mariah Mccollum MD [facility] [address] [place] [address] Social History Tobacco Use Types Packs/Day Years [...] encounter Miscellaneous Notes * Telephone Encounter - Mariah Mccollum MD - 06/17/2017 1:12 PM EDT Left a message to [facility] back. Will need Iron repletion. documented in this encounter Plan of Treatment Not on file documented as of this encounter Visit Diagnoses Not on filedocumented in this encounter Care Teams Food Selector Relationship Specialty Start Date End Date Lawson Whitaker MD [address] [place] [id number] PCP - General General Internal Medicine 06/11/1601/16 documented as of this encounter
--- OUTSIDE RECORDS SUMMARY | 2024-05-14 03:38 | XMS_ITS | Encounter Summary ---
Author Organization [facility] Address [facility] [place] [address] Care Team Providers Care Hair Colorist Name Role Phone Lawson Whitaker MD Primary Care Provider [phone] Encounter Details Date Type Department Care Team (Late st Contact Info) Description 08/01/2017 Orders Only Hematology [place] [address] Cristy Pelaez APRN [facility] [place] [address] Iron deficiency anemia, unspecified iron deficiency anemia [...] documented as of this encounter Results * (ABNORMAL) Ferritin (08/05/2017 2:13 PM EDT) Ferritin 158(H) 15 - 150 ng/mL [facility] Comment: Pediatric reference ranges not verified at [facility], interpret with caution. Reference ranges for females greater than 50 years of age approach values for men, i.e., 30-400 ng/mL. Blood specimen (specimen) 08/05/2017 2:13 PM EDT 08/05/2017 2:52 PM EDT Narrative Resulting Agency Comment Spec In Lab Cristy A Latanya GAMBLE CHEMISTRY ORDERA BLES Performing Organization Address [facility] Co de Phone Number [facility] [place] [address] * Iron and TIBC (08/05/2017 2:13 PM EDT) Iron 60 30 - 150 mcg/dL [facility] TIBC 274 250 - 450 mcg/dL [facility] Iron Saturation 22 20 - 50 % [facility] Blood specimen (specimen) 08/05/2017 2:13 PM EDT 08/05/2017 2:52 PM EDT Narrative Resulting Agency Comment Spec In Lab Cristy Pelaez APRN CHEMISTRY ORDERA BLES Performing Organization Address [facility] Co de Phone Number [facility] [place] [address] documented in this encounter Visit Diagnoses Diagnosis Iron deficiency anemia, unspecified iron deficiency anemia type documented in this encounter Care Teams Hair Colorist Relationship Specialty Start Date End Date Lawson Whitaker MD [address] [address] PCP - General General Internal Medicine 06/11/1601/16 documented as of this encounter
--- OUTSIDE RECORDS SUMMARY | 2024-05-14 03:38 | XMS_ITS | Encounter Summary ---
Author Organization [facility] Address [address] [place] [address] Care Team Providers Care Beverage Manager Name Role Phone Lawson Whitaker MD Primary Care Provider [phone] Encounter Details Date Type Department Care Team (Late st Contact Info) Description 03/17/2018 Results Only [facility] [phone] Kelly Rogers, DO [address] [place] [address] Social History Tobacco Use Types Packs/Day Years Used Date Smoking Tobacco: Never Assessed Sex and Gender Information Value Date Recorded Sex Assigned at Not on file Gender Identity Not on file Sexual Orientation Not on file documented as of this encounter Plan of Treatment Not on file documented as of this encounter Procedures Procedure Name Priority Date/Time Associated Diagnosis Comments SURGICAL PATHOLOGY Routine 03/17/2018 9:01 EDT documented in this encounter Results * SURGICAL PATHOLOGY (03/17/2018 9:01 EDT) Pathology Report: SURGICAL PATHOLOGY REPORT Reports generated via electronic interface contain original data; however they are lacking the format of the original report. Caution should be taken when reading/interpret ing unformatted reports. Name: ? MALU DE ? Accession #: ? [id number] ? : ? 1975 (Age: 42) ??F ? Collect Date: ? 03/17/2018 ? Location: ? [facility] ? Receive Date: ? 03/18/2018 ? Provider: KELLY ROGERS DO Copy to: [employer] ? Final Pathologic Diagnosis: A. ??DUODENUM, BIOPSY: - Unremarkable duodenal mucosa. - Negative for gluten-sensitive enteropathy. ?? B. ??STOMACH ANTRUM, BIOPSY: - Mild reactive gastropathy. - Negative for Helicobacter pylori organisms. ?? C. ??ESOPHAGUS, MIDDLE THIRD, BIOPSY: ? - Unremarkable squamous mucosa. - Negative for Rangel's specialized-colum sejal epithelium. - Negative for eosinophilic esophagitis. ?? Document reviewed and electronically signed by: NACHO KAUR MD Report ??Date: 03/21/2018 13:30 By the signature above, the attending physician certifies that he/she has personally conducted a gross and/or microscopic examination of the described specimens and rendered or confirmed the above diagnosis. Specimen(s) Received: A. ??Duodenal bxs B. ??Gastric antrum bxs C. ??Mid-esophagus bxs Clinical History: Dysphagia, R13.14 Gross Description: A. ?Received in formalin labelled with proper patient identification (initials N, M) and duodenal biopsies are two pink-meadows tissues (0.3 x 0.2 x 0.2 cm and 0.4 x 0.3 x 0.2 cm). Entirely submitted in block A1. B. ?Received in formalin labelled with proper patient identification (initials N, M) and gastric antrum biopsies are five pink-meadows tissues (0.3 x 0.2 x 0.1 cm to 0.5 x 0.3 x 0.1 cm). Entirely submitted in blocks B1 and B2. C. ?Received in formalin labelled with proper patient identification (initials N, M) and mid esophagus biopsies are five white tissues (0.2 x 0.2 x 0.1 cm to 0.5 x 0.3 x 0.1 cm). Entirely submitted in blocks C1 and C2. MARIAN Zapata (ASCP) 03/20/2018 8:16 AM End of Report [facility] 03/17/2018 9:01 EDT 03/18/2018 9:01 EDT Kelly Rogers DO PATHOLOGY ORDERABLES [facility] [address] [place] [address] documented in this encounter Visit Diagnoses Not on filedocumented in this encounter Care Teams Beverage Manager Relationship Specialty Start Date End Date Lawson Whitaker MD [address] [place] [address] PCP - General 03/26/15 documented as of this encounter
--- OUTSIDE RECORDS SUMMARY | 2024-05-14 03:38 | XMS_ITS | Encounter Summary ---
Author Organization [facility] [place] [address] Care Team Providers Care Operator Vacuum Name Role Phone Brandee Fuchs APRN Primary Care Provider [phone] Reason for Visit * Reason Onset Date Comments Medication Refill 03/21/2017 Encounter Details Date Type Department Care Team (Late st Contact Info) Description 03/21/2017 Ref[place] [address] Jm Camargo MD [facility] [place] [address] Social History Tobacco Use Types Packs/Day Years [...] on filedocumented in this encounter Care Teams Operator Vacuum Relationship Specialty Start Date End Date Brandee Fuchs APRN PCP - General Family Medicine 01/17/19 documented as of this encounter
--- OUTSIDE RECORDS SUMMARY | 2024-05-14 03:38 | XMS_ITS | Encounter Summary ---
[place] [address] Care Team Providers Care Associate Director Financial Aid Name Role Phone Lawson Whitaker MD Primary Care Provider [phone] Reason for Referral * Consultation (Routine) - Closed Specialty Diagnoses / Procedures Referred By Adryan marin Referred To Contact Neurology Diagnoses Diffuse pain Numbness and tingling Jm Camargo MD [facility] [place] [address] [facility] Neurology [address] [place] [address] Referral ID Status Reason Start Date Expiration Date V isits Requested Visits Authorized [id number] Closed Consult, Test & Treat 10/26/2016 10/26/2017 1 1 Encounter Details Date Type Department Care Team (Late st Contact Info) Description 10/26/2016 [place] [address] Jm Camargo MD [facility] [place] [address] Diffuse pain; Numbness and tingling Social History Tobacco Use Types Packs/Day Years Used Date Smoking Tobacco: Former Sex and Gender Information Value Date Recorded Sex Assigned at Not on file Gender Identity Not on file Sexual Orientation Not on file documented as of this encounter Plan of Treatment Scheduled Referrals Name Type Priority Associated Diagnoses Orde r Schedule Referral to Neurology Outpatient Referral Routine Diffuse pain Numbness and tingling Ordered: 10/26/2016 documented as of this encounter Visit Diagnoses Diagnosis Diffuse pain Generalized pain Numbness and tingling Disturbance of skin sensation documented in this encounter Care Teams Associate Director Financial Aid Relationship Specialty Start Date End Date Lawson Whitaker MD [address] [place] [address] PCP - General General Internal Medicine 06/11/1601/16 documented as of this encounter
--- OUTSIDE RECORDS SUMMARY | 2024-05-14 03:38 | XMS_ITS | Encounter Summary ---
Author Organization [facility] Address [facility] [place] [address] Care Team Providers Care Junior Business Analyst Name Role Phone Brandee Fuchs Obdulia GAMBLE Primary Care Provider [phone] Encounter Details Date Type Department Care Team (Late st Contact Info) Description 08/02/2019 11:30 AM EDT Office Visit Hematology/Oncology at [address] [id number] Ashok Hernandez MD [facility] [address] HEMATOLOGY [place] [address] Iron deficiency anemia, unspecified iron deficiency anemia [...] 36.4 ??C (97.5 ??F) 08/02/2019 11:34 AM E DT Respiratory Rate 16 08/02/2019 11:34 AM EDT Oxygen Saturation 99% 08/02/2019 11:34 AM EDT Inhaled Oxygen Concentration - - Weight 83.9 kg (185 lb) 08/02/2019 11:34 AM EDT Height 157.5 cm (5' 2.01) 08/02/2019 11:34 AM E DT copied Body Mass Index 33.83 08/02/2019 11:34 AM EDT documented in this encounter Progress Notes * Ashok Hernandez MD - 08/02/2019 11:30 AM EDT I am seeing the patient in the [facility]. He has a history of iron deficiency [...] has normalized her hemoglobin with oral iron but she has not yet replenished her iron storage. Given that she is able to absorb the iron and now has a normal hemoglobin I do not think we need faye too aggressive with her. I recommended that she take 1 iron tablet per week. I recommended MiraLAX for a day or 2 before shetakes it and as needed for constipation. My [...] type documented in this encounter Care Teams Junior Business Analyst Relationship Specialty Start Date End Date Brandee Fuchs APRN PCP - General Family Medicine 01/17/19 documented as of this encounter
--- OUTSIDE RECORDS SUMMARY | 2024-05-14 03:38 | XMS_ITS | Encounter Summary ---
[place] [address] Care Team Providers Care Coat Presser Name Role Phone Brandee Fuchs APRN Primary Care Provider [phone] Reason for Referral * Physical Therapy (Routine) - Closed Specialty Diagnoses / Procedures Referred By Adryan marin Referred To Contact Diagnoses Hypermobility arthralgia Chronic midline low back pain without sciatica Berkley Hernández APRN [facility] [place] [address] Referral ID Status Reason Start Date Expiration Date V isits Requested Visits Authorized [id number] Closed Evaluate and Treat 06/14/2019 12/11/2019 12 12 Reason for Visit * Consultation - Specialty Diagnoses / Procedures Referred By Adryan marin Referred To Contact Rheumatology Diagnoses JOINT PAIN, NECK PAIN, BACK PAIN, ANEMIA, IRON DEFICIENCY Brandee Fuchs APRN [address] [place] [address] [facility] Rheumatology [address] [place] [id number] Referral ID Status Reason Start Date Expiration Date V isits Requested Visits Authorized [id number] Consult, Test & Treat [facility] 01/31/2019 01/31/2020 6 6 Encounter Details Date Type Department Care Team (Late st Contact Info) Description 06/14/2019 10:00 AM EDT Office Visit Rheumatology at [facility] [place] [address] Berkley Hernández APRN [facility] [place] [address] Sacroiliac pain; Hypermobility arthralgia; Chronic midline low back pain without sciatica; Arthralgia, unspecified joint; Myalgia, other site Social History Tobacco Use [...] 36.8 ??C (98.2 ??F) 06/14/2019 9:57 AM ED T Respiratory Rate - - Oxygen Saturation 98% 06/14/2019 9:57 AM EDT Inhaled Oxygen Concentration - - Weight 82.1 kg (181 lb) 06/14/2019 9:57 AM EDT Height 157.5 cm (5' 2) 06/14/2019 9:57 AM EDT Body Mass Index 33.11 06/14/2019 9:57 AM EDT documented in this encounter Patient Instructions * Patient Instructions* Berkley Hernández APRN - 06/14/2019 10:00 AM EDT 3T today for xray Follow-through with sleep study Physical therapy referral made today Consider a TENS unit for your back We can consider trying a medication or referral to pain clinic at the next visit [facility] specialist: Lily Denton documented in this encounter Progress Notes * Berkley Hernández APRN - 06/14/2019 10:00 AM [...] is, the harder to breath. She would [id number] advil at once, upset her stomach, so [...] subsequently referred to the Rheumatology Clinic at [facility] for further evaluation. 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 ?? [...] She inquires about EDS dx. Discussed that [facility] does not offer EDS testing for adults, but that we can certainly explore ways to help manage joint pain and manifestations of hypermobile joints. I did give her the name of Dr. Lily Cruz at [facility] is she wanted to pursue a formal dx. Might be necessary for social security. Plan: -SIJ pain: SIJ xr with possible f/u MRI to further evaluate and help r/o seroneg spondy. No pso/ibd/inflammatory eye sxs/pattern of inflammatory back pain. Could consider referral to Pain Clinic based on results, injections. -Hypermobility and diffuse arthralgia: External PT referral made. Would like to go to [facility] in [place]. Consider pool therapy in future as well. -FMS: Discussed importance of following through with sleep study, which she is planning on doing through new lock tender chief operator. Discussed the importance of sleep and exercise in managing FMS. Discussed the possibility of trying medication like gabapentin or lyrica in the future. Elavil, cymbalta, muscle relaxants haven't worked or hasn't tolerated -LBP: reviewed xr results from 2016. Trial tens unit. Referral to PT. RTC in 2 months documented in this encounter Plan of Treatment Scheduled Referrals Name Type Priority Associated Diagnoses Orde r Schedule Referral to Physical Therapy Outpatient Referral Routine Hypermobility arthralgia Chronic midline low back pain without sciatica Ordered: 06/14/2019 documented as of this encounter Visit Diagnoses Diagnosis Sacroiliac pain Disorders of sacrum Arthralgia, unspecified joint Chronic midline low back pain without sciatica Myalgia, other site documented in this encounter Care Teams Coat Presser Relationship Specialty Start Date End Date Brandee Fuchs APRN PCP - General Family Medicine 01/17/19 documented as of this encounter
--- OUTSIDE RECORDS SUMMARY | 2024-05-14 03:38 | XMS_ITS | Encounter Summary ---
Author Organization [facility] Address [address] [place] [address] Care Team Providers Care Machine Sizer Name Role Phone Lawson Whitaker MD Primary Care Provider [phone] Encounter Details Date Type Department Care Team (Late st Contact Info) Description 03/26/2020 Lab Requisition [facility] Pathology & Laboratory Medicine - [facility] [address] [place] [address] Outr Resulting Lab, Provider Social History Tobacco Use Types Packs/Day Years Used Date Smoking Tobacco: Never Assessed Sex and Gender Information Value Date Recorded Sex Assigned at Not on file Gender Identity Not on file Sexual Orientation Not on file documented as of this encounter Plan of Treatment Not on file documented as of this encounter Procedures Procedure Name Priority Date/Time Associated Diagnosis Comments TRANSFERRIN Routine 03/25/2020 16:00 EDT documented in this encounter Results * TRANSFERRIN (03/25/2020 16:00 EDT) Transferrin 256 201 - 352 mg/dL 03/28/2020 11:10 EDT [facility] Blood VENOUS BLOOD / Unknown 03/25/2020 16:00 EDT 03/26/2020 15:58 EDT Provider Outr Resulting Lab CHEMISTRY & BLOOD GAS ORDERABLES [facility] [address] [place] [address] documented in this encounter Visit Diagnoses Not on filedocumented in this encounter Additional Health Concerns Infection Onset Date Last Indicated Resolved Time COVID-19 09/27/2022 09/27/2022 10/17/2022 22:1 5 EST documented as of this encounter Care Teams Machine Sizer Relationship Specialty Start Date End Date Lawson Whitaker MD [address] [place] [address] PCP - General 03/26/15 documented as of this encounter
--- OUTSIDE RECORDS SUMMARY | 2024-05-14 03:38 | XMS_ITS | Encounter Summary ---
Author Organization [facility] [place] [address] Care Team Providers Care Doctor Of Pharmacy Name Role Phone Lawson Whitaker MD Primary Care Provider Encounter Details Date Type Department Care Team (Latest Contact Info) Description 08/05/2017 1:30 PM EDT - 08/05/2017 11:59 PM EDT Hospital Encounter Hematology [place] [address] Iron deficiency anemia, unspecified iron deficiency anemia type Discharge Disposition: Home Social History Tobacco Use [...] (NASACORT OR NASACORT OTC) 55 mcg Aerosol, [place] 2 sprays by Nasal route daily. ferrous sulfate 325 mg (65 mg iron) Tablet Take 1 tablet by mouth 2 times daily (after meals). 180 tablet 3 01/11/2017 06/26/2020 ergocalciferol (ERGOCALCIFEROL) 50,000 unit Capsule Take 1 capsule by mouth once a week. 6 capsule 2 09/20/2016 06/14/2019 ALPRAZolam (XANAX) 0.25 mg Tablet Take 0.25 mg by mouth as needed. 0 06/08/2016 06/14/2019 sertraline (ZOLOFT) 100 mg Tablet Take 150 mg by mouth daily. 0 09/10/2016 05/31/2019 documented as of this encounter Plan of Treatment Not on file documented as of this encounter Procedures Procedure Name Priority Date/Time Associated Diagnosis Comments SCAN, PERIPHERAL BLOOD STAT 08/05/2017 2:13 PM EDT HEMOGRAM STAT 08/05/2017 2:13 PM EDT Iron deficiency anemia, unspecified iron deficiency anemia type DIFFERENTIAL, AUTOMATED STAT 08/05/2017 2:13 PM EDT Iron deficiency anemia, unspecified iron deficiency anemia type IRON AND TIBC STAT 08/05/2017 2:13 PM EDT Iron deficiency anemia, unspecified iron deficiency anemia type CBC (WITH DIFF) STAT 08/05/2017 2:13 PM EDT Iron deficiency anemia, unspecified iron deficiency anemia type FERRITIN STAT 08/05/2017 2:13 PM EDT Iron deficiency anemia, unspecified iron deficiency anemia type documented in this encounter Results * Scan, Peripheral Blood (08/05/2017 2:13 PM EDT) Plat estimate Increased [facility] RBC Morphology Abnormal [facility] Microcyte 1-5 /HPF [facility] Hypochromia Slight [facility] Ovalocytes 1-5 /HPF [facility] Plat, Giant Less than 1 /HPF [facility] Blood specimen (specimen) 08/05/2017 2:13 PM EDT 08/05/2017 2:52 PM EDT Narrative Resulting Agency Comment Spec In Lab Cristy Pelaez APRN HEMATOLOGY ORDER NICOLE [facility] [place] [address] * (ABNORMAL) Differential, Automated (08/05/2017 2:13 PM EDT) Neutrophil % 59.3 % [facility] Neutrophil Absolute 5.13 1.70 - 6.10 x10(3)/mc L [facility] Lymph % 25.9 % [facility] Lymphocytes Abs 2.2 0.9 - 3.2 x10(3)/mc L [facility] Monocyte % 6.6 % [facility] Monocyte Abs 0.6 0.3 - 0.9 x10(3)/mc L [facility] Eos % 7.4 % [facility] Eosinophils Abs 0.6(H) 0.0 - 0.4 x10(3)/mc L [facility] Basophil % 0.5 % [facility] Baso Absolute 0.0 0.0 - 0.1 x10(3)/mc L [facility] Immature Gran % 0.30 % [facility] Comment: Immature granulocytes(IG's)percentage and absolute count will include metamyelocytes, myelocytes, and promyelocytes. Blood smears from CBCs yielding IG's will be scanned manually for concordance. If this scan disagrees with the automated IG or if promyelocytes are noted, a manual differential will be performed. Immature Gran Absolute 0.03 0.00 - 0.04 x10(3)/mc L [facility] Blood specimen (specimen) 08/05/2017 2:13 PM EDT 08/05/2017 2:52 PM EDT Narrative Resulting Agency Comment Spec In Lab Cristy Pelaez MAVIS HEMATOLOGY ORDER NICOLE [facility] [place] [address] * (ABNORMAL) Hemogram (08/05/2017 2:13 PM EDT) White Blood Cell 8.6 4.0 - 9.5 x10(3)/[facility] [place] [facility] Red Blood Cell 5.65(H) 4.00 - 5.21 x10(6)/[facility] [place] [facility] Comment:Dimorphic RBC popula tion. Hemoglobin 14.3 11.7 - 15.5 gm/dL [facility] Hematocrit 45.8 35.7 - 45.8 % [facility] Mean Cell Volume 81.1(L) 82.6 - 94.4 fL [facility] Mean Cell Hemoglobin 25.3(L) 27.1 - 32.0 pg [facility] Mean Cell Hemoglobin Concentration 31.2(L) 31.7 - 35.0 gm/dL [facility] Platelet 373(H) 145 - 357 x10(3)/[facility] [place] [facility] RDW Standard Deviation Not Measured 37.0 - 46.0 [facility] RDW coefficient of variation Not Measured 11.5 - 14.1 % [facility] Mean Platelet Volume 9.5 7.6 - 12.9 fL [facility] NRBC% auto 0.0 % [facility] NRBC Absolute 0.000 0.000 - 0.000 x10(3)/[facility] [place] [facility] Blood specimen (specimen) 08/05/2017 2:13 PM EDT 08/05/2017 2:52 PM EDT Narrative Resulting Agency Comment Spec In Lab Cristy Pelaez APRN HEMATOLOGY ORDER NICOLE Performing Organization Address [facility] [place] [facility] Co de Phone Number [facility] [place] [address] * (ABNORMAL) Ferritin (08/05/2017 2:13 PM EDT) Ferritin 158(H) 15 - 150 ng/mL [facility] Comment: Pediatric reference ranges not verified at [facility], interpret with caution. Reference ranges for females greater than 50 years of age approach values for men, i.e., 30-400 ng/mL. Blood specimen (specimen) 08/05/2017 2:13 PM EDT 08/05/2017 2:52 PM EDT Narrative Resulting Agency Comment Spec In Lab Cristy Pelaez APRN CHEMISTRY ORDERA BLES Performing Organization Address [facility] de Phone Number [facility] [place] [address] * Iron and TIBC (08/05/2017 2:13 PM EDT) Iron 60 30 - 150 mcg/dL [facility] TIBC 274 250 - 450 mcg/dL [facility] Iron Saturation 22 20 - 50 % [facility] Blood specimen (specimen) 08/05/2017 2:13 PM EDT 08/05/2017 2:52 PM EDT Narrative Resulting Agency Comment Spec In Lab Cristy Pelaez APRN CHEMISTRY ORDERA BLES Performing Organization Address [facility] [place] [facility] Co de Phone Number [facility] [place] [address] documented in this encounter Visit Diagnoses Diagnosis Iron deficiency anemia, unspecified iron deficiency anemia type documented in this encounter Care Teams Doctor Of Pharmacy Relationship Specialty Start Date End Date Lawson Whitaker MD [address] [place] [address] PCP - General General Internal Medicine 06/11/1601/16 documented as of this encounter
--- OUTSIDE RECORDS SUMMARY | 2024-05-14 03:38 | XMS_ITS | Clinical Summary ---
Author Organization [facility] Address [address] [place] [address] Care Team Providers Care Glass Furnace Operator Name Role Phone Lawson Whitaker MD Primary Care Provider [phone] Social History Tobacco Use Types Packs/Day Years Used Date Smoking Tobacco: Never Assessed Interpersonal Safety Answer Date Record ed Physically Hurt Never 05/11/2020 Verbally Threaten Not on file 05/11/2020 Sex and Gender Information Value Date Recorded Sex Assigned at Not on file Gender Identity Not on file Sexual Orientation Not on file Plan of Treatment Health Maintenance Due Date Last Done Comments Hepatitis C Screen 1975 Hepatitis B Vaccine (1 of 3 - 19+ 3-dose series) 11/17 COVID-19 Vaccine ( season) 2023 Care Teams Glass Furnace Operator Relationship Specialty Start Date End Date Lawson Whitaker MD [address] [place] [address] PCP - General 03/26/15
--- OUTSIDE RECORDS SUMMARY | 2024-05-14 03:38 | XMS_ITS | Encounter Summary ---
Author Organization [facility] Address [address] [place] [address] Care Team Providers Care Fabricator Assembler Metal Products Name Role Phone Lawson Whitaker MD Primary Care Provider [phone] Encounter Details Date Type Department Care Team (Late st Contact Info) Description 12/08/2023 Lab Requisition [facility] Pathology & Laboratory Medicine - [facility] [address] [place] [address] Zena Hughes MD [address] [place], [place] [address] Encounter for other general examination Social History Tobacco Use Types Packs/Day Years [...] Priority Date/Time Associated Diagnosis Comments SURGICAL PATHOLOGY Today 12/08/2023 14 :15 EST Encounter for other general examination documented in this encounter Results * SURGICAL PATHOLOGY (12/08/2023 14:15 EST) Note to Patient The following pathology results have been interpreted by your pathologist and may be available to you before your health provider has had the opportunity to review them. Please allow time for your provider to receive these results and explore management options, if applicable. 12/13/2023 9:56 EST [facility] Final Diagnosis A. SKIN OF ELBOW, LEFT POSTERIOR MEDIAL, PUNCH BIOPSY: - Psoriasiform dermatitis. See microscopic and comment 12/13/2023 9:56 [facility] Diagnosis Comment The biopsy from the elbow shows minimal epidermal change with parakeratosis overlying orthokeratosis and a sparse perivascular inflammatory infiltrate with rare eosinophils. A fungal infection is not identified. Fully developed features of psoriasis are not identified. The features could represent a resolving eczematous process. Clinical correlation is necessary. 12/13/2023 9:56 [facility] Attestation By the signature below, the attending physician certifies that they have 1) personally conducted a gross and/or microscopic examination of the described specimen(s), and/or personally interpreted the results of laboratory testing of the described specimen(s), and 2) personally rendered or confirmed the above diagnosis. 12/13/2023 9:56 [facility] at 0956 Microscopic Description Multiple levels are reviewed. The epidermis is fairly unremarkable with patchy parakeratosis within the stratum corneum. In areas, the parakeratosis overlies a layer of orthokeratosis. Neutrophils are not seen. Spongiosis is also not appreciated. Within the dermis, mild perivascular inflammation is identified in comprised primarily of lymphocytes. Rare eosinophils are identified. A PAS stain is performed and shows no evidence of fungal organisms. 12/13/2023 9:56 [facility] Clinical History Scaling red skin bilat extensor surfaces of elbows, likely psoriasis, known other autoimmune disorders 12/13/2023 9:56 [facility] Gross Description A. Received in formalin labelled with proper patient identification (initials N, M) and L posterior-medial elbow is a punch biopsy of meadows roughened skin (0.3 cm in diameter and 0.2 cm in thickness). Submitted intact in A1. Renetta Dickey 12/09/2023 8:35 12/13/2023 9:56 [facility] Performing Lab [facility] 12/13/2023 9:56 [facility] Scanned Images 12/13/2023 9:56 [facility] Tissue SPECIMEN FROM SKIN / Unknown 12/08/2023 14:15 EST 12/08/2023 22:35 EST Zena Hughes MD PATHOLOGY ORDERABLES [facility] [address] [place] [phone] documented in this encounter Visit Diagnoses Diagnosis Encounter for other general examination documented in this encounter Care Teams Fabricator Assembler Metal Products Relationship Specialty Start Date End Date Lawson Whitaker MD [address] [place] [address] PCP - General 03/26/15 documented as of this encounter
--- OUTSIDE RECORDS SUMMARY | 2024-05-14 03:38 | XMS_ITS | Encounter Summary ---
Author Organization [facility] [place] [address] Care Team Providers Care Bander And Cellophaner Helper Machine Name Role Phone Lawson Whitaker MD Primary Care Provider [phone] Encounter Details Date Type Department Care Team (Latest Contact Info) Description 01/04/2017 2:35 PM EDT - 01/04/2017 11:59 PM EDT [place] [address] Tico Elizalde MD [facility] [place] [address] Discharge Disposition: Home Social History Tobacco Use [...] (NASACORT OR NASACORT OTC) 55 mcg Aerosol, [place] 2 sprays by Nasal route daily. ergocalciferol (ERGOCALCIFEROL) 50,000 unit Capsule Take 1 [...] on filedocumented in this encounter Care Teams Bander And Cellophaner Helper Machine Relationship Specialty Start Date End Date Lawson Whitaker MD [address] [place] [id number] PCP - General General Internal Medicine 06/11/1601/16 documented as of this encounter
--- OUTSIDE RECORDS SUMMARY | 2024-05-14 03:38 | XMS_ITS | Encounter Summary ---
[place] [address] Care Team Providers Care Christian Science Reader Name Role Phone Lawson Whitaker MD Primary Care Provider [phone] Reason for Visit * Reason Onset Date Comments Medical Care Coordination 06/20/2017 Encounter Details Date Type Department Care Team (Late st Contact Info) Description 06/20/2017 Telephone [place] [id number] Isa Foster RN Medical Care Coordination Social History Tobacco Use Types Packs/Day Years [...] encounter Miscellaneous Notes * Telephone Encounter - Isa Foster RN - 06/20/2017 4:41 PM EDT Message received from secretary to board of commissioners: Injection/Infusion Referral Call placed to [facility] @ [phone] Sol garcia/ TYRELL Services to be provided for pt are: VENOFER 2/WK FOR 5 doses CLAUDE SANTILLAN confirmed they would provide services to pt and would contact with appointment time. Pt orders faxed to [phone]. documented in this encounter Plan of Treatment Not on file documented as of this encounter Visit Diagnoses Not on filedocumented in this encounter Care Teams Christian Science Reader Relationship Specialty Start Date End Date Lawson Whitaker MD [address] [place] [address] PCP - General General Internal Medicine 06/11/1601/16 documented as of this encounter
--- OUTSIDE RECORDS SUMMARY | 2024-05-14 03:38 | XMS_ITS | Encounter Summary ---
Author Organization [facility] Address [address] [place] [address] Care Team Providers Care Tool Die Maker Name Role Phone Lawson Whitaker MD Primary Care Provider [phone] Encounter Details Date Type Department Care Team (Late st Contact Info) Description 03/26/2015 Phlebotomy Only [facility] [address] [place] [address] Electrical Engineering Technologist, Outpatient Social History Tobacco Use Types Packs/Day Years Used Date Smoking Tobacco: Never Assessed Sex and Gender Information Value Date Recorded Sex Assigned at Not on file Gender Identity Not on file Sexual Orientation Not on file documented as of this encounter Plan of Treatment Not on file documented as of this encounter Visit Diagnoses Not on filedocumented in this encounter Care Teams Tool Die Maker Relationship Specialty Start Date End Date Lawson Whitaker MD [address] [place] [address] PCP - General 03/26/15 documented as of this encounter
--- OUTSIDE RECORDS SUMMARY | 2024-05-14 03:38 | XMS_ITS | Referral Summary ---
Author Organization [facility] Address [address] [place] [address] Care Team Providers Care Esthetician/Owner Name Role Phone Lawson Whitaker MD Primary Care Provider [phone] Social History Tobacco Use Types Packs/Day Years Used Date Smoking Tobacco: Never Assessed Interpersonal Safety Answer Date Record ed Physically Hurt Never 05/11/2020 Verbally Threaten Not on file 05/11/2020 Sex and Gender Information Value Date Recorded Sex Assigned at Not on file Gender Identity Not on file Sexual Orientation Not on file Plan of Treatment Not on file Care Teams Esthetician/Owner Relationship Specialty Start Date End Date Lawson Whitaker MD [address] [place] [address] PCP - General 03/26/15
--- OUTSIDE RECORDS SUMMARY | 2024-05-14 03:38 | XMS_ITS | Encounter Summary ---
Author Organization [facility] Address [address] [place] [address] Care Team Providers Care Electric Transfer Operator Name Role Phone Lawson Whitaker MD Primary Care Provider [phone] Encounter Details Date Type Department Care Team (Late st Contact Info) Description 06/08/2016 Results Only Imaging [facility] [phone] Unknown, Provider, Social History Tobacco Use Types Packs/Day Years Used Date Smoking Tobacco: Never Assessed Sex and Gender Information Value Date Recorded Sex Assigned at Not on file Gender Identity Not on file Sexual Orientation Not on file documented as of this encounter Plan of Treatment Pending Results Name Type Priority Associated Diagnoses Date /Time OUTSIDE IMAGES - OTHER CHEST Imaging 06/08/2016 7:38 EDT OUTSIDE IMAGES - OTHER CHEST Imaging 06/08/2016 7:38 EDT OUTSIDE IMAGES - CT NEURO Imaging 06/08/2016 7:38 EDT OUTSIDE IMAGES - OTHER CHEST Imaging 06/08/2016 7:38 EDT OUTSIDE IMAGES - OTHER CHEST Imaging 06/08/2016 7:38 EDT OUTSIDE IMAGES - OTHER CHEST Imaging 06/08/2016 7:38 EDT documented as of this encounter Visit Diagnoses Not on filedocumented in this encounter Care Teams Electric Transfer Operator Relationship Specialty Start Date End Date Lawson Whitaker MD [address] [place] [address] PCP - General 03/26/15 documented as of this encounter
--- OUTSIDE RECORDS SUMMARY | 2024-05-14 03:38 | XMS_ITS | Encounter Summary ---
[facility] [place] [address] Care Team Providers Care Viscosity Tester Name Role Phone Lawson Whitaker MD Primary Care Provider [phone] Encounter Details Date Type Department Care Team (Late st Contact Info) Description 08/05/2017 Telephone Hematology [place] [address] Mariah Mccollum MD [facility] [address] [place] [address] Social History Tobacco Use Types Packs/Day Years [...] on filedocumented in this encounter Care Teams Viscosity Tester Relationship Specialty Start Date End Date Lawson Whitaker MD [address] [place] [address] PCP - General General Internal Medicine 06/11/1601/16 documented as of this encounter
--- OUTSIDE RECORDS SUMMARY | 2024-05-14 03:38 | XMS_ITS | Encounter Summary ---
Author Organization [facility] [place] [address] Care Team Providers Care Trip Motor Operator Name Role Phone Brandee Fuchs APRN Primary Care Provider Encounter Details Date Type Department Care Team (Late st Contact Info) Description 06/20/2019 Ancillary Procedure [place] [address] Berkley Hernández APRN [facility] [place] [address] Social History Tobacco Use Types Packs/Day Years [...] Diagnosis Comments FILM LIBRARY STORAGE ONLY DX SPINE Routine 06/20/2019 12:00 AM EDT documented in this encounter Results * Film Library- Storage Only DX Spine (06/20/2019 12:00 AM EDT) Narrative [facility] - 06/21/2019 9:46 PM EDT This exam is auto-finalizing. It's purpose is for storage only. Berkley Hernández APRN IMG FILM LIBRARY ORD ERABLES [place], [place] documented in this encounter Visit Diagnoses Not on filedocumented in this encounter Care Teams Trip Motor Operator Relationship Specialty Start Date End Date Brandee Fuchs APRN PCP - General Family Medicine 01/17/19 documented as of this encounter
--- OUTSIDE RECORDS SUMMARY | 2024-05-14 03:38 | XMS_ITS | Encounter Summary ---
Author Organization [facility] [place] [address] Care Team Providers Care Fruit Pitter Name Role Phone Lawson Whitaker MD Primary Care Provider [phone] Encounter Details Date Type Department Care Team (Latest Contact Info) Description 06/17/2017 10:59 AM EDT - 06/17/2017 11:59 PM EDT Hospital Encounter [place] [address] Anemia, unspecified type Discharge Disposition: Home Social History Tobacco [...] (NASACORT OR NASACORT OTC) 55 mcg Aerosol, [place] 2 sprays by Nasal route daily. ferrous [...] Procedure Name Priority Date/Time Associated Diagnosis Comments TISSUE TRANSGLUTAMINASE AB IGA Routine 06/17/2017 11:06 AM EDT CELIAC SEROLOGY CASCADE Routine 06/17/20 11:06 AM EDT Anemia, unspecified type SCAN, PERIPHERAL BLOOD Routine 7 11:06 AM EDT HEMOGRAM Routine 06/17/2017 11:06 AM EDT Anemia, unspecified type DIFFERENTIAL, AUTOMATED Routine 06/17/20 11:06 AM EDT Anemia, unspecified type CBC (WITH DIFF) Routine 06/17/2017 11:06 AM EDT Anemia, unspecified type FERRITIN Routine 06/17/2017 11:06 AM EDT Anemia, unspecified type documented in this encounter Results * Tissue Transglutaminase Ab IgA (06/17/2017 11:06 AM EDT) TTG IgA Ab <1.2 <4.0 (Negative) unit/mL [facility] Comment: Test Performed by: [facility] - [address] [address] Blood specimen (specimen) 06/17/2017 11:06 AM EDT 06/17/2017 12:25 PM EDT Narrative Resulting Agency Comment Spec In Lab Mariah Mccollum MD CHEMISTRY ORDERABLES Performing Organization Address City/[facility]/ZIP Co de Phone Number [facility] [place] [address] * Scan, Peripheral Blood (06/17/2017 11:06 AM EDT) Pathologist [facility] Plat estimate Increased [facility] RBC Morphology Abnormal [facility] Microcyte 1-5 /HPF [facility] Ovalocytes 1-5 /HPF [facility] Blood specimen (specimen) 06/17/2017 11:06 AM EDT 06/17/2017 11:12 AM EDT Narrative Resulting Agency Comment Spec In Lab Mariah Mccollum MD HEMATOLOGY ORDERABLE S Performing Organization Address City/[facility]/[place] [address] * (ABNORMAL) Differential, Automated (06/17/2017 11:06 AM EDT) [facility] Neutrophil % 66.6 % [facility] Neutrophil Absolute 7.14(H) 1.70 - 6.10 x10(3)/mc L [facility] Lymph % 20.2 % [facility] Lymphocytes Abs 2.2 0.9 - 3.2 x10(3)/mc L [facility] Monocyte % 6.8 % [facility] Monocyte Abs 0.7 0.3 - 0.9 x10(3)/mc L [facility] Eos % 5.4 % [facility] Eosinophils Abs 0.6(H) 0.0 - 0.4 x10(3)/mc L [facility] Basophil % 0.5 % [facility] Baso Absolute 0.0 0.0 - 0.1 x10(3)/ L [facility] Immature Gran % 0.50 % [facility] Comment: Immature granulocytes(IG's)percentage and absolute count will include metamyelocytes, myelocytes, and promyelocytes. Blood smears from CBCs yielding IG's will be scanned manually for concordance. If this scan disagrees with the automated IG or if promyelocytes are noted, a manual differential will be performed. Immature Gran Absolute 0.05(H) 0.00 - 0.04 x10(3)/[facility] Blood specimen (specimen) 06/17/2017 11:06 AM EDT 06/17/2017 11:12 AM EDT Narrative Resulting Agency Comment Spec In Lab Mariah Mccollum MD HEMATOLOGY ORDERABLE S Performing Organization Address City/State/[facility] Co de Phone Number [facility] [place] [address] * (ABNORMAL) Hemogram (06/17/2017 11:06 AM EDT) White Blood Cell 10.7(H) 4.0 - 9.5 x10(3)/[facility] Red Blood Cell 5.36(H) 4.00 - 5.21 x10(6)/ L [facility] Hemoglobin 11.5(L) 11.7 - 15.5 gm/dL [facility] Hematocrit 39.0 35.7 - 45.8 % [facility] Mean Cell Volume 72.8(L) 82.6 - 94.4 fL [facility] Mean Cell Hemoglobin 21.5(L) 27.1 - 32.0 pg [facility] Mean Cell Hemoglobin Concentration 29.5(L) 31.7 - 35.0 gm/dL [facility] Platelet 407(H) 145 - 357 x10(3)/mc L [facility] RDW Standard Deviation 52.3(H) 37.0 - 46.0 fL [facility] RDW coefficient of variation 20.2(H) 11.5 - 14.1 % [facility] Mean Platelet Volume 9.6 7.6 - 12.9 fL [facility] NRBC% auto 0.0 % [facility] NRBC Absolute 0.000 0.000 - 0.000 x10(3)/mc L [facility] Blood specimen (specimen) 06/17/2017 11:06 AM EDT 06/17/2017 11:12 AM EDT Narrative Resulting Agency Comment Spec In Lab Mariah Mccollum MD HEMATOLOGY ORDERABLE S Performing Organization Address City/State/[facility] Co de Phone Number [facility] [place] [address] * Celiac Sero [place] (06/17/2017 11:06 AM EDT) Celiac Sero [place] Test ?Result ?Flag ??Unit ?? RefValue Celiac Disease Serology [place] ??Immunoglobulin A (IgA), S ? 301 ? mg/dL ??61 - 356 ??Celiac Disease Interpretation ? SEE COMMENTS ?Negative serology. Celiac disease unlikely. However, ?approximately 10% of patients with celiac disease are ?seronegative. Also, patients who are already adhering to a ?gluten-free diet may be seronegative. If celiac disease is ?highly clinically suspected, consider HLA-DQ typing. ?Test Performed by: ?[facility] ?[address] [place] [address] [facility] Blood specimen (specimen) 06/17/2017 11:06 AM EDT 06/17/2017 12:25 PM EDT Narrative Resulting Agency Comment Spec In Lab Mariah Mccollum MD LAB SEND OUT ORDERAB LES Performing Organization Address [facility] Co de Phone Number [facility] [place] [address] * (ABNORMAL) Ferritin (06/17/2017 11:06 AM EDT) Ferritin 7(L) 15 - 150 ng/mL [facility] Comment: Pediatric reference ranges not verified at [facility], interpret with caution. Reference ranges for females greater than 50 years of age approach values for men, i.e., 30-400 ng/mL. Blood specimen (specimen) 06/17/2017 11:06 AM EDT 06/17/2017 11:13 AM EDT Narrative Resulting Agency Comment Spec In Lab Mariah Mccollum MD CHEMISTRY ORDERABLES Performing Organization Address [facility] Co de Phone Number [facility] [place] [address] documented in this encounter Visit Diagnoses Diagnosis Anemia, unspecified type documented in this encounter Care Teams Fruit Pitter Relationship Specialty Start Date End Date Lawson Whitaker MD [address] [place] [address] PCP - General General Internal Medicine 06/11/1601/16 documented as of this encounter
--- OUTSIDE RECORDS SUMMARY | 2024-05-14 03:38 | XMS_ITS | Encounter Summary ---
Author Organization [facility] [place] [address] Care Team Providers Care Associate Material Handler Name Role Phone Lawson Whitaker MD Primary Care Provider [phone] Encounter Details Date Type Department Care Team (Late st Contact Info) Description 09/20/2016 Telephone [place] [address] Brenda Raymundo LPN Social History Tobacco Use [...] deficiency? I faxed a script for 6 + 6 + 6 weeks of vitamin D to her local pharmacy. Thanks Jm ++++++ I phoned to let the pt know the above message. documented in this encounter Plan of Treatment Not on file documented as of this encounter Visit Diagnoses Not on filedocumented in this encounter Care Teams Associate Material Handler Relationship Specialty Start Date End Date Lawson Whitaker MD [address] [place] [address] PCP - General General Internal Medicine 06/11/1601/16 documented as of this encounter
--- OUTSIDE RECORDS SUMMARY | 2024-05-14 03:38 | XMS_ITS | Encounter Summary ---
[place] [address] Care Team Providers Care Md Urologist Name Role Phone Lawson Whitaker MD Primary Care Provider [phone] Encounter Details Date Type Department Care Team (Late st Contact Info) Description 10/18/2016 External Results [place] [address] Camron Abbasi MD [facility] [address] Social History Tobacco Use Types Packs/Day Years Used Date Smoking Tobacco: Former Sex and Gender Information Value Date Recorded Sex Assigned at Not on file Gender Identity Not on file Sexual Orientation Not on file documented as of this encounter Plan of Treatment Not on file documented as of this encounter Procedures Procedure Name Priority Date/Time Associated Diagnosis Comments EMG SCAN Routine 10/18/2016 documented in this encounter Results * Scan Doc: EMG (10/18/2016) Camron Abbasi MD MEDIA MGR SCAN EXT O RDR/RSLT documented in this encounter Visit Diagnoses Not on filedocumented in this encounter Care Teams Md Urologist Relationship Specialty Start Date End Date Lawson Whitaker MD [address] [place] [address] PCP - General General Internal Medicine 06/11/1601/16 documented as of this encounter
--- OUTSIDE RECORDS SUMMARY | 2024-05-14 03:38 | XMS_ITS | Encounter Summary ---
[place] [address] Care Team Providers Care Flight Controls Engineer Name Role Phone Lawson Whitaker MD Primary Care Provider [phone] Reason for Visit * Reason Onset Date Comments Medication Management 07/04/2017 Medical Care Coordination 07/04/2017 Encounter Details Date Type Department Care Team (Late st Contact Info) Description 07/04/2017 Telephone Hematology [place] [id number] Isa Foster RN Medication Management; Medical Care Coordination Social History Tobacco Use [...] PM EDT RN received call from Dionne TRAN infusion room nurse at [facility] reporting that pt is there for 2nd dose of venofer this afternoon. When pt arrived for appt today she reports experiencing n/v/d for [id number] immediately following her first dose of vernofer on 06/27/17. Pt was due to come in on 07/01/17for 2nd dose of venofer, but canceled appt, the reason is not known. Dionne is asking if we wantto change anything before she starts 2nd venofer dose today. This RN instructed Dionne to proceed with 2nd dose of venofer and instruct pt to call [phone] if n/v/d develop. Dionne verbalized understanding and is in agreement with plan. Dr. Mccollum is aware and in agreement. documented in this encounter Plan of Treatment Not on file documented as of this encounter Visit Diagnoses Not on filedocumented in this encounter Care Teams Flight Controls Engineer Relationship Specialty Start Date End Date Lawson Whitaker MD [address] [place] [address] PCP - General General Internal Medicine 06/11/1601/16 documented as of this encounter
--- OUTSIDE RECORDS SUMMARY | 2024-05-14 03:38 | XMS_ITS | Encounter Summary ---
[place] [address] Care Team Providers Care Bi Data Architect Name Role Phone Brandee Fuchs APRN Primary Care Provider [phone] Reason for Visit * Reason Onset Date Comments Medication Refill 02/23/2017 Encounter Details Date Type Department Care Team (Late st Contact Info) Description 02/23/2017 [place] [address] Monique Mistry I, CUATE Social History Tobacco Use Types Packs/Day Years [...] Type Associated Problems Recent Progress Patient-Stated? Author [facility] Medication Compliance and Understanding Patient Facing Action Plan Yes Rekha Coburn, [facility] Note: Reduction in use of SMILEY to 1-2 nebulizer treatments per day. Measured by: Patient report Time frame: 6 months documented as of this encounter Visit Diagnoses Not on filedocumented in this encounter Care Teams Bi Data Architect Relationship Specialty Start Date End Date Brandee Fuchs APRN PCP - General Family Medicine 01/17/19 documented as of this encounter
--- OUTSIDE RECORDS SUMMARY | 2024-05-14 03:38 | XMS_ITS | Encounter Summary ---
Author Organization [facility] Address [facility] [place] [address] Care Team Providers Care Electronics Design Engineer Name Role Phone Lawson Whitaker MD Primary Care Provider [phone] Encounter Details Date Type Department Care Team (Late st Contact Info) Description 09/20/2016 Orders [place] [address] Jm Camargo MD [facility] [place] [address] Social History Tobacco Use Types Packs/Day Years Used Date Smoking Tobacco: Former Sex and Gender Information Value Date Recorded Sex Assigned at Not on file Gender Identity Not on file Sexual Orientation Not on file documented as of this encounter Plan of Treatment Not on file documented as of this encounter Visit Diagnoses Not on filedocumented in this encounter Care Teams Electronics Design Engineer Relationship Specialty Start Date End Date Lawson Whitaker MD [address] [place] [address] PCP - General General Internal Medicine 06/11/1601/16 documented as of this encounter
--- OUTSIDE RECORDS SUMMARY | 2024-05-14 03:38 | XMS_ITS | Encounter Summary ---
Author Organization Formerly [facility] [place] [address] Care Team Providers Care Slab Puller Name Role Phone Lawson Whitaker MD Primary Care Provider [phone] Reason for Referral * Consultation (Routine) - Closed Specialty Diagnoses / Procedures Referred By Adryan marin Referred To Contact Sleep Center Diagnoses Chronic fatigue Sleep disturbance Jm Camargo MD [facility] [place] [address] [facility] Sleep Medicine [address] [place] [address] Referral ID Status Reason Start Date Expiration Date V isits Requested Visits Authorized [id number] Closed Consult, Test & Treat 01/11/2017 01/11/2018 1 1 Reason for Visit * Reason Comments Follow-up Encounter Details Date Type Department Care Team (Late st Contact Info) Description 01/11/2017 9:20 AM EDT Office [place] [id number] Jm Camargo MD [facility] [place] [address] Anemia, unspecified type; Vitamin D deficiency; Chronic fatigue; Sleep disturbance Social History Tobacco Use Types Packs/Day Years [...] 36.9 ??C (98.5 ??F) 01/11/2017 9:19 AM ED T Respiratory Rate - - Oxygen Saturation 99% 01/11/2017 9:19 AM EDT Inhaled Oxygen Concentration - - Weight 90.7 kg (200 lb) 01/11/2017 9:19 AM EDT Height 156.2 cm (5' 1.5) 01/11/2017 9:19 AM EDT Body Mass Index 37.18 01/11/2017 9:19 AM EDT documented in this encounter Patient Instructions * Patient Instructions* Jm Camargo MD - 01/11/2017 9:20 AM EDT 1) Check labs today. ?? 2) Refer to Sleep Medicine Clinic. 3) Return to follow up in 3 months. documented in this encounter Progress Notes * Jm Camargo MD - 01/11/2017 9:20 AM [...] with her boyfriend.?? 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 ?? FAMILY HISTORY: Mother - Diabetes mellitus II; alive at the age of 60. ?? Father - Chronic alcoholism; of heart and liver failure at the age of 50. ?? PHYSICAL EXAMINATION: ?? Vitals 01/11/2017 PULSE 86 TEMPERATURE 98.5 Height (Beninese) 5' 1.5 Height (Metric) 156.2 cm Weight (Beninese) 200 lbs Weight (Metric) 90.719 kg BODY [...] Sofy Danlos syndrome III.?? Her initial physical examinationand serological studies revealed no stigmata of inflammatory arthritis.?? [facility] ?? 5) Diffuse myalgia and 6) chronic fatigue. The pt's diffuse myalgia, particularly in the setting ofbilateral trigger point tenderness on palpation, is consistent with fibromyalgia. It is possible that her myalgia started as the joint pain. She is awaiting results of the skin biopsy to evaluate forperipheral neuropathy as a case of her diffuse myalgia. In the setting of chronic fatigue, she willalso be referred to Sleep Medicine Clinic for further evaluation of possible sleep disorder as a cause of her chronic pain. 7) Severe vitamin D deficiency. The pt is currently on weekly high dose vitamin D supplement for her severe vitamin D deficiency. She will undergo repeat [...] to Sleep Disorders Center Outpatient Referral Routine Chronic fatigue Sleep disturbance Ordered: 01/11/2017 documented as of this encounter Procedures Procedure Name Priority Date/Time Associated Diagnosis Comments IRON AND TIBC Routine 01/11/2017 10:07 AM EDT Anemia, unspecified type VITAMIN D, 25-HYDROXY Routine 01/11/2017 10:07 AM EDT Vitamin D deficiency FERRITIN Routine 01/11/2017 10:07 AM EDT Anemia, unspecified type documented in this encounter Results * (ABNORMAL) Ferritin (01/11/2017 10:07 AM EDT) [facility] Signature Ferritin 8(L) 15 - 150 ng/mL [facility] Comment: Pediatric reference ranges not verified at [facility], interpret with caution. Reference ranges for females greater than 50 years of age approach values for men, i.e., 30-400 ng/mL. Blood specimen (specimen) 01/11/2017 10:07 AM EDT 01/11/2017 10:13 AM EDT Narrative Resulting Agency Comment Spec In Lab Jm Camargo MD CHEMISTRY ORDERABLES Performing Organization Address City/[facility]/ZIP Co de Phone Number [facility] [place] [address] * (ABNORMAL) Iron and TIBC (01/11/2017 10:07 AM EDT) Iron 12(L) 30 - 150 mcg/dL [facility] TIBC 385 250 - 450 mcg/dL [facility] Iron Saturation 3(L) 20 - 50 % [facility] Blood specimen (specimen) 01/11/2017 10:07 AM EDT 01/11/2017 10:13 AM EDT Narrative Resulting Agency Comment Spec In Lab Jm Camargo MD CHEMISTRY ORDERABLES Performing Organization Address City/[facility]/ZIP Co de Phone Number [facility] [place] [address] * Vitamin D, 25-Hydroxy (01/11/2017 10:07 AM EDT) Vitamin D Total 25 OH 33 30 - 100 ng/mL [facility] Comment: Deficient <10 ng/mL Insufficient 10 to 29 ng/mL Sufficient 30 to 100 ng/mL Potential Intoxication >100 ng/mL According to the [place] National Osteoporosis Foundation, Vitamin D concentrations >30 ng/mL are sufficient to protect bone health. ??The National Kidney Foundation has similarly stated that patients with Vitamin D concentrations <30ng/mL should be considered to be insufficient or deficient. http://Formspring.Climber.com/DHMCnatlkidneyfoundation http://Formspring.Climber.com/DHMCVitD The [employer] i[employer] Vitamin D Immunoassay detects both 25-OH Vitamin D2 and 25-OH Vitamin D3, but only a total Vitamin D concentration is reported. Blood specimen (specimen) 01/11/2017 10:07 AM EDT 01/11/2017 1:20 PM EDT Narrative Resulting Agency Comment Spec In Lab Jm Camargo MD CHEMISTRY ORDERABLES [facility] [place] [address] documented in this encounter Visit Diagnoses Diagnosis Anemia, unspecified type Vitamin D deficiency Unspecified vitamin D deficiency Chronic fatigue Other malaise and fatigue Sleep disturbance Sleep disturbance, unspecified documented in this encounter Care Teams Slab Puller Relationship Specialty Start Date End Date Lawson Whitaker MD [address] [place] [id number] PCP - General General Internal Medicine 06/11/1601/16 documented as of this encounter
--- OUTSIDE RECORDS SUMMARY | 2024-05-14 03:38 | XMS_ITS | Encounter Summary ---
Author Organization [facility] Address [facility] [place] [address] Care Team Providers Care Webfocus Developer Name Role Phone Lawson Whitaker MD Primary Care Provider Reason for Referral * Consultation (Routine) - Specialty Diagnoses / Procedures Referred By Adryan marin Referred To Contact Sleep Center Diagnoses Apnea Gasping for breath Hypersomnia Procedures PRG POLYSOM 6+ YRS SLEEP W 4+ ADDL DARIO Emma Hirsch MD [facility] [place] [address] [facility] Sleep Medicine [address] [place] [address] Referral ID Status Reason Start Date Expiration Date V isits Requested Visits Authorized [id number] Test Only 08/29/2017 11/29/2017 1 1 Reason for Visit * Consultation (Routine) - Closed Specialty Diagnoses / Procedures Referred By Adryan marin Referred To Contact Sleep Center Diagnoses Chronic fatigue Sleep disturbance Jm Camargo MD [facility] [place] [address] [facility] Sleep Medicine [address] [place] [address] Referral ID Status Reason Start Date Expiration Date V isits Requested Visits Authorized [id number] Closed Consult, Test & Treat 01/11/2017 01/11/2018 1 1 Encounter Details Date Type Department Care Team (Late st Contact Info) Description 08/17/2017 2:00 PM EST Office Visit Sleep Center at [facility] [address] [place] [address] Emma Johnson MD [facility] [place] [address] Apnea (Primary Dx); Gasping for breath; Hypersomnia Social History Tobacco Use Types Packs/Day Years [...] Progress Notes * Emma Johnson MD - 08/17/2017 2:00 PM [...] up.Wakes up from a sleep, can't talk wolfgang Has GERD and takes omeprazole. Has ended up in the emergency room. Partner gets nebulizer. Has called EMS. Emotionally terrifying. Gets hot, heart pounding, suffocating feeling. Lasts into wakefulness, 15 min or more. Been diagnosed with asthma, but can take 8 nebs without improvement. Has referral to pulmonary thatis upcoming. Sleep Apnea Risk: Snoring: yes Severity: [...] - 2 hrs is typical Daytime Symptoms: [place]: 8 Upon Awakening: still tired Daytime fatigue/sleepiness: [...] for the 08/17/17 encounter (Office Visit) with Emma Johnson MD Medication Sig Dispense Refill ??? [...] (NASACORT OR NASACORT OTC) 55 mcg Aerosol, Hoagland 2 sprays by Nasal route daily. Family History: Family history of sleep disorders: no Past Medical History: Diagnosis Date ??? Asthma ??? Fatigue ??? GERD (gastroesophageal reflux disease) ??? GERD (gastroesophageal reflux disease) Anemia Patient Active Problem List Diagnosis Code ??? Asthma J45.909 Social History: Alcohol: no Smoking: no Other drugs: no Caffeine: coffee, few cups Family: skilled nursing partner, 20 yr daughter and 13 yr [...] who is seen to evaluate for possible obstructive sleep apnea in the setting of disrupted sleep, awakening from sleep with acute SOB, witnessed apneas, and reports of sleep walking. Her symptoms of dyspnea seem to persist beyond the immediate time of waking suggesting sleep apnea is not the only contributing issue. Some of her nocturnal symptoms seem to suggest laryngospasm (sudden awakenings, panicked, can't move air or speak) and she also hasa history of GERD with ongoing symptoms. However, her also describes more typical events tosuggest sleep apnea as well. She has a history suggestive of Sofy' Danlos (not confirmed) which puts her at additional risk of ROSALVA. She has reports [...] that study results can be called to [phone] and a detailed phone message leftif not available to answer. documented in this encounter Plan of Treatment Scheduled Referrals Name Type Priority Associated Diagnoses Orde r Schedule Referral to Sleep Disorders Center Outpatient Referral Routine Apnea Gasping for breath Hypersomnia Ordered: 08/17/2017 documented as of this encounter Visit Diagnoses Diagnosis Apnea- Primary Gasping for breath Hypersomnia Hypersomnia, unspecified documented in this encounter Care Teams Webfocus Developer Relationship Specialty Start Date End Date Lawson Whitaker MD [address] [place] [id number] PCP - General General Internal Medicine 06/11/1601/16 documented as of this encounter
--- OUTSIDE RECORDS SUMMARY | 2024-05-14 03:38 | XMS_ITS | Encounter Summary ---
Author Organization [facility] [place] [address] Care Team Providers Care Manager Control Name Role Phone Lawson Whitaker MD Primary Care Provider [phone] Encounter Details Date Type Department Care Team (Late st Contact Info) Description 04/22/2017 Telephone Hematology [place] [address] Marisa Cason MD [facility] DR HEMATOLOGY/[place] [address] Social History Tobacco Use Types Packs/Day Years [...] encounter Miscellaneous Notes * Telephone Encounter - Marisa Cason MD - 04/22/2017 10:00 AM EDT Images from the original note were not included. Received a call from Brandee price ORTHOPEDIC SPECIALIST at [facility]. She has a history of mild asthma requiring multiple hospitalizations. Labs show microcytic anemia compatible with iron def anemia forwhich she is on iron supplementation ( Hb-11.2 MCV-70.3, Iron -12, Ferritin-8,TIBC-385) . However patient feels she has a thalassemia. Hb Electrophoresis was normal. She is not of /mediterranean/ ancestry. I mentioned that labs are more suggestive of iron def anemia and she would need repletion of iron .However Hb electrophoresis does not rule out alpha thalassemias but testing for this is DNA analysisof the globin gene. We would be happy to see her in hematology clinic for further evaluation of microcytic anemia. Marisa Cason MD Hematology/Oncology Fellow Pager: [phone] documented in this encounter Plan of Treatment Not on file documented as of this encounter Visit Diagnoses Not on filedocumented in this encounter Care Teams Manager Control Relationship Specialty Start Date End Date Lawson Whitaker MD [address] [place] [id number] PCP - General General Internal Medicine 06/11/1601/16 documented as of this encounter
--- OUTSIDE RECORDS SUMMARY | 2024-05-14 03:38 | XMS_ITS | Encounter Summary ---
Author Organization [facility] Address [facility] [place] [id number] Care Team Providers Care Waxing Machine Operator Name Role Phone Lawson Whitaker MD Primary Care Provider Reason for Referral * Consultation (Routine) - Closed Specialty Diagnoses / Procedures Referred By Adryan marin Referred To Contact Genetics Diagnoses Arthralgia, unspecified joint Hypermobile joints hypermobile joints + poor wound healing. Please evaluate for EDS III Jm Camargo MD [facility] [place] [address] Annie Fernandes MD [facility] [place] [address] Referral ID Status Reason Start Date Expiration Date V isits Requested Visits Authorized [id number] Closed Consult, Test & Treat 09/13/2016 12/06/2017 1 1 Reason for Visit * Reason Comments Referral * Consultation (Routine) - Specialty Diagnoses / Procedures Referred By Adryan marin Referred To Contact Rheumatology Diagnoses asthma exacerbations//posible thalesemia//fibromyalgia Procedures consult Brandee Fuchs, COLLEGE ADMINISTRATOR [address] [place] [address] [facility] Rheumatology [address] [place] [phone] Referral ID Status Reason Start Date Expiration Date V isits Requested Visits Authorized [id number] 07/20/2016 07/20/2017 1 1 Encounter Details Date Type Department Care Team (Late st Contact Info) Description 09/13/2016 10:00 AM EST Office Visit [place] [address] Jm Camargo MD [facility] [address] RHEUMATOLOGY DEPT. [place] [id number] Neck pain; Chronic midline low back pain without sciatica; Diffuse pain; Arthralgia, unspecified joint; Hypermobile joints Social History Tobacco Use Types [...] 156.2 cm (5' 1.5) 09/13/2016 11:15 AM ES T Body Mass Index 35.69 09/13/2016 11:15 AM EST documented in this encounter Patient Instructions * Patient Instructions* Jm Camargo MD - 09/13/2016 10:00 AM EST 1) Check labs today. 2) Get X-ray of the total spine today. 3) Refer to Genetics Clinic. 4) Refer to Neurology Clinic. 5) Return to follow up in 4-6 weeks. documented in this encounter Progress Notes * Jm Camargo MD - 09/13/2016 10:00 AM [...] butshe felt minimal pain relief with these agents. She was subsequently referred to the Rheumatology Clinic at [facility] for further evaluation. PAST MEDICAL HISTORY: Asthma [...] living with her boyfriend. 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 FAMILY [...] DIASTOLIC 61 PULSE 83 TEMPERATURE 98.6 Height (Swedish) 5' 1.5 Height (Metric) 156.2 cm Weight (Swedish) 192 lbs Weight (Metric) 87.091 kg BODY MASS INDEX 35.69 kg/m2 Pulse Oximetry 95 General - Alert, co-operative, no apparent distress, oriented x 3. HEENT - PERRL, EOMI bilaterally, conjunctiva pink, no sclerae icterus or malar rash; oropharynx moist and non-erythematous. Neck - Supple, + marked decrease in range of motion of the neck on lateral rotation to the left andslight decrease in range of motion to the right; + posterior cervical spinal tenderness on palpation; + bilateral paraspinal tenderness on palpation and range of motion; no JVD, carotid bruits, thyrom egaly, or cervical lymphadenopathy. Heart - Regular rate and rhythm, normal S1 and S2; no murmurs, rubs, or gallops. Lungs - Symmetric, no respiratory distress, clear to auscultation bilaterally. Abdomen - Soft, non-tender, non-distended, bowel sound present, no hepatosplenomegaly. Back - Erect, FROM; + diffuse thoracic and lumbosacral spinal tenderness on palpation; no paraspinal tenderness at the SI joint areas on palpation. Extremities - Upper extremities: FROM of all joints; + hyperextensible bilateral elbows and 5th MCPjoints; + bilateral shoulder tenderness at the acromioclavicular [...] tenderness on palpation; + bilateral trigger point tenderness on palpation ( right worse than left); no [...] that her myalgia started as the joint pain as noted above. She will undergo basic laboratory studies to rule out any inflammatory disease. She will also be referred to the Neurology Clinic for EMG studies in order to evaluatefor peripheral neuropathy as a case of her diffuse myalgia. RECOMMENDATIONS: 1) Check labs today. 2) Get X-ray of the total spine today. 3) Refer to Genetics Clinic. 4) Refer to Neurology Clinic. 5) Return to follow up in 4-6 weeks. Jm Camargo MD, PhD documented in this encounter Plan of Treatment Scheduled Referrals Name Type Priority Associated Diagnoses Orde r Schedule Referral to Genetics Outpatient Referral Routine Arthralgia, unspecified joint Hypermobile joints Ordered: 09/13/2016 documented as of this encounter Procedures Procedure Name Priority Date/Time Associated Diagnosis Comments URINALYSIS WITH REFLEX CULTURE Routine 09/13/2016 12:28 PM EST Neck pain Chronic midline low back pain without sciatica Diffuse pain Arthralgia, unspecified joint SCAN, PERIPHERAL BLOOD Routine 6 11:35 AM EST ANTI-CYCLIC CITRULLINATED PEPTIDE AB Routine 09/13/2016 11:35 AM EST Neck pain Chronic midline low back pain without sciatica Diffuse pain Arthralgia, unspecified joint HEMOGRAM Routine 09/13/2016 11:35 AM EST Neck pain Chronic midline low back pain without sciatica Diffuse pain Arthralgia, unspecified joint DIFFERENTIAL, AUTOMATED Routine 09/13/2016 11:35 AM EST Neck pain Chronic midline low back pain without sciatica Diffuse pain Arthralgia, unspecified joint HLA-B27 Routine 09/13/2016 11:35 AM EST Neck pain Chronic midline low back pain without sciatica Diffuse pain Arthralgia, unspecified joint VITAMIN D, 25-HYDROXY Routine 09/13/2016 11:35 AM EST Neck pain Chronic midline low back pain without sciatica Diffuse pain Arthralgia, unspecified joint SEDIMENTATION RATE Routine 09/13/2016 11 :35 AM EST Neck pain Chronic midline low back pain without sciatica Diffuse pain Arthralgia, unspecified joint CBC (WITH DIFF) Routine 09/13/2016 11:35 AM EST Neck pain Chronic midline low back pain without sciatica Diffuse pain Arthralgia, unspecified joint RHEUMATOID FACTOR, QUANT Routine 09/13/2016 11:35 AM EST Neck pain Chronic midline low back pain without sciatica Diffuse pain Arthralgia, unspecified joint CRP, CARDIAC RISK (HS CRP) Routine 09/13/2016 11:35 AM EST Neck pain Chronic midline low back pain without sciatica Diffuse pain Arthralgia, unspecified joint COMPREHENSIVE METABOLIC PANEL Routine 09/13/2016 11:35 AM EST Neck pain Chronic midline low back pain without sciatica Diffuse pain Arthralgia, unspecified joint documented in this encounter Results * (ABNORMAL) Urinalysis with reflex Culture (09/13/2016 12:28 PM EST) Glucose, Urine Dipstick Negative Negative mg/dL [facility] Protein, Urine Dipstick Negative Negative mg/dL [facility] Bilirubin, Urine Dipstick Negative Negative mg/dL [facility] Comment: Clinical correlation required for positive Urine Bilirubin results as false positive may occur with some drugs and drug related products. If a false positive is suspected a serum total bilirubin should be considered if clinically indicated. Urobilinogen, Urine Dipstick Normal Normal mg/dL [facility] pH, Urn (dipstick) 5.0 5.0 - 8.0 [facility] Blood, Urine Dipstick Negative Negative mg/dL [facility] Ketone, Urine Dipstick 5(A) Negative mg/dL [facility] Nitrite, Urine Dipstick Negative Negative [facility] Leukocytes, Urine Dipstick Negative Negative [facility] Appearance, Urine Dipstick Clear Clear [facility] Specific [place] Urine Automated 1.026 1.002 - 1.030 [facility] Color, Urine Dipstick Yellow Yellow [facility] RBC, Urine 3 0 - 4 /HPF [facility] WBC, Urine 1 0 - 5 /HPF [facility] Squamous Epithelial Cells, Urine 1 <=4 /HPF [facility] Reflex to Culture No [facility] Urine specimen obtained by clean catch procedure (specimen) 09/13/2016 12:28 PM EST 09/13/2016 12:33 PM EST Narrative Resulting Agency Comment Spec In Lab Jm Camargo MD URINE ORDERABLES [facility] [place] [address] * XR Cervical Thoracic & Lumbar Spine [...] from scattered vertebral bodies. There is minimal L5-E1ouwch arthropathy. Disk spaces: Normal. Soft tissues: Normal. Alignment: No subluxation IMPRESSION 1. No vertebral body fracture. 2. Loss of normal cervical lordosis. 3. L5-S1 minimal facet arthropathy. Jm Camargo MD IMG DX ORDERABLES * Scan, Peripheral Blood (09/13/2016 11:35 AM EST) Plat estimate Increased [facility] RBC Morphology Abnormal [facility] Microcyte 6-10 /HPF [facility] Hypochromia Slight [facility] Ovalocytes 1-5 /HPF [facility] Blood specimen (specimen) 09/13/2016 11:35 AM EST 09/13/2016 11:39 AM EST Narrative Resulting Agency Comment Spec In Lab Jm Camargo MD HEMATOLOGY ORDERABLE S [facility] [place] [address] * (ABNORMAL) Differential, Automated (09/13/2016 11:35 AM EST) Pathologist [facility] Neutrophil % 62.9 % [facility] Neutrophil Absolute 6.64(H) 1.70 - 6.10 x10(3)/mc L [facility] Lymph % 20.8 % [facility] Lymphocytes Abs 2.2 0.9 - 3.2 x10(3)/mc L [facility] Monocyte % 5.7 % [facility] Monocyte Abs 0.6 0.3 - 0.9 x10(3)/mc L [facility] Eos % 9.9 % [facility] Eosinophils Abs 1.0(H) 0.0 - 0.4 x10(3)/mc L [facility] Basophil % 0.5 % [facility] Baso Absolute 0.0 0.0 - 0.1 x10(3)/mc L [facility] Immature Gran % 0.20 % [facility] Comment: Immature granulocytes(IG's)percentage and absolute count will include metamyelocytes, myelocytes, and promyelocytes. Blood smears from CBCs yielding IG's will be scanned manually for concordance. If this scan disagrees with the automated IG or if promyelocytes are noted, a manual differential will be performed. Immature Gran Absolute 0.02 0.00 - 0.04 x10(3)/mc L [facility] Blood specimen (specimen) 09/13/2016 11:35 AM EST 09/13/2016 11:39 AM EST Narrative Resulting Agency Comment Spec In Lab Jm Camargo MD HEMATOLOGY ORDERABLE S [facility] [place] [address] * (ABNORMAL) Hemogram (09/13/2016 11:35 AM EST) White Blood Cell 10.8(H) 4.0 - 9.5 x10(3)/mc L [facility] Red Blood Cell 5.52(H) 4.00 - 5.21 x10(6)/mc L [facility] Hemoglobin 11.2(L) 11.7 - 15.5 gm/dL [facility] Hematocrit 38.8 35.7 - 45.8 % [facility] Mean Cell Volume 70.3(L) 82.6 - 94.4 fL [facility] Mean Cell Hemoglobin 20.3(L) 27.1 - 32.0 pg [facility] Mean Cell Hemoglobin Concentration 28.9(L) 31.7 - 35.0 gm/dL [facility] Platelet 409(H) 145 - 357 x10(3)/mc L [facility] RDW Standard Deviation 48.3(H) 37.0 - 46.0 fL [facility] RDW coefficient of variation 20.0(H) 11.5 - 14.1 % [facility] Mean Platelet Volume 9.5 7.6 - 12.9 fL [facility] NRBC% auto 0.0 % [facility] NRBC Absolute 0.000 0.000 - 0.000 x10(3)/mc L [facility] Blood specimen (specimen) 09/13/2016 11:35 AM EST 09/13/2016 11:39 AM EST Narrative Resulting Agency Comment Spec In Lab Jm Camargo MD HEMATOLOGY ORDERABLE S Performing Organization Address [facility] Co de Phone Number [facility] [place] [address] * (ABNORMAL) HLA-B27 (09/13/2016 11:35 AM EST) HLA-B27 Negative [facility] HLA B27 Interpretation HLA B27 antigen was not detected. Method: Flow Cytometry Reference: 1.Fermin DA, Matteo POLK, Jessa Dixon, et al: Ankylosing spondylitis and HLA-27. Lancet 1973;1:904-907 2.Andre Roman, Ruba HILL: HLA-B27 typing by use of flow cytofluorometr y. Clin Chem 1987;33:1619-1 623 [facility] White Blood Cell 10.8(H) 4.0 - 9.5 x10(3)/m cL [facility] Blood specimen (specimen) 09/13/2016 11:35 AM EST 09/13/2016 11:39 AM EST Narrative Resulting Agency Comment Spec In Lab Jm Camargo MD HEMATOLOGY ORDERABLE S Performing Organization Address [facility] Co de Phone Number [facility] [place] [address] * Cyclic Citrullinated Peptide (09/13/2016 11:35 AM EST) Cyclic Citrulline Peptide <8.0 <=17.0 unit/mL [facility] Blood specimen (specimen) 09/13/2016 11:35 AM EST 09/13/2016 11:39 AM EST Narrative Resulting Agency Comment Spec In Lab Jm Camargo MD CHEMISTRY ORDERABLES Performing Organization Address [facility] Phone Number [facility] [place] [address] * High Sensitivity CRP (09/13/2016 11:35 AM EST) C-Reactive Protein High Sensitivity 7.9 mg/L [facility] Comment: Interpretations: 1) For accurate cardiac risk assessment, the average of 2 values >2 weeks apart should be obtained (ref 1&2). A value >10 mg/L indicates an inflammatory condition, concentrations >10 mg/L should not be used for cardiac risk assessment. ?<1.0 mg/L: low risk ?1.0 - 3.0 mg/L: moderate risk ?>3.0 mg/L: high risk groups for future cardiovascular events 2) The general reference range of apparently healthy individuals using this test is <5.0 mg/L (derived from the test package insert) References: 1. Karel CONCEPCION et. al. ??AHA/CDC Scientific Statement: Markers of Inflammation and Cardiovascular Disease. ??Circulation 2003; 107:499-511 ?2.Ridker PM. ??Clinical applications of C-reactive protein for cardiovascular disease detection and prevention. ??Circulation ?2002; 107:363-369 Blood specimen (specimen) 09/13/2016 11:35 AM EST 09/13/2016 11:39 AM EST Narrative Resulting Agency Comment Spec In Lab Jm Camargo MD CHEMISTRY ORDERABLES Performing Organization Address [facility] Co de Phone Number [facility] [place] [address] * Rheumatoid factor, quant (09/13/2016 11:35 AM EST) Rheumatoid Factor <10 <=14 IU/mL [facility] Blood specimen (specimen) 09/13/2016 11:35 AM EST 09/13/2016 11:39 AM EST Narrative Resulting Agency Comment Spec In Lab Jm Camargo MD CHEMISTRY ORDERABLES Performing Organization Address [facility] Co de Phone Number [facility] [place] [address] * (ABNORMAL) Vitamin D, 25-Hydroxy (09/13/2016 11:35 AM EST) Pathologist [facility] Vitamin D Total 25 OH 14(L) 30 - 100 ng/mL [facility] Comment: Deficient <10 ng/mL Insufficient 10 to 29 ng/mL Sufficient 30 to 100 ng/mL Potential Intoxication >100 ng/mL According to the [place] National Osteoporosis Foundation, Vitamin D concentrations >30 ng/mL are sufficient to protect bone health. ??The National Kidney Foundation has similarly stated that patients with Vitamin D concentrations <30ng/mL should be considered to be insufficient or deficient. http://[employer]/DHnatlkidneyfoundation http://[employer]/DHMCVitD The [employer] Vitamin D Immunoassay detects both 25-OH Vitamin D2 and 25-OH Vitamin D3, but only a total Vitamin D concentration is reported. Blood specimen (specimen) 09/13/2016 11:35 AM EST 09/13/2016 11:39 AM EST Narrative Resulting Agency Comment Spec In Lab Jm Camargo MD CHEMISTRY ORDERABLES Performing Organization Address [facility] Co de Phone Number [facility] [place] [address] * Sedimentation rate (09/13/2016 11:35 AM EST) [facility] Sedimentation Rate Automated 12 0 - 20 mm/hr [facility] Blood specimen (specimen) 09/13/2016 11:35 AM EST 09/13/2016 11:39 AM EST Narrative Resulting Agency Comment Spec In Lab Jm Camargo MD HEMATOLOGY ORDERABLE S Performing Organization Address [facility] Co de Phone Number [facility] [place] [address] * Comprehensive metabolic panel (non-fasting) (09/13/2016 11:35 AM EST) [facility] Glucose 106 65 - 199 mg/dL [facility] Comment:Diabetes: >=200 mg/d L plus symptoms Blood Urea Nitrogen 13 8 - 18 mg/dL [facility] Creatinine 0.81 0.70 - 1.20 mg/dL [facility] Comment: Please note that the pediatric reference intervals supplied above were not validated at [facility]. Results from pediatric patients should be interpreted in conjunction to the patient's age, height and muscle mass. Sodium 140 135 - 145 mmol/L [facility] Potassium 4.1 3.5 - 5.0 mmol/L [facility] Comment: Please note: ??Patients with WBC >100,000 may have falsely elevated Potassium levels. ??For accurate Potassium quantification in these patients send serum separator tube (gold top) for subsequent determinations. ??Contact the Clinical Chemistry Laboratory if there are any questions. Chloride 104 98 - 107 mmol/L [facility] Carbon Dioxide 23 22 - 31 mmol/L [facility] Anion Gap 13 5 - 15 mmol/L [facility] Calcium 8.9 8.5 - 10.5 mg/dL [facility] Protein, Total 7.3 6.1 - 8.0 gm/dL [facility] Albumin 4.5 3.2 - 5.2 gm/dL [facility] Aspartate Aminotransferase 13 0 - 30 unit/L [facility] Alanine Aminotransferase 8 0 - 30 unit/L [facility] Alkaline Phosphatase 95 40 - 104 unit/L [facility] Bilirubin, Total 0.2 0.2 - 1.3 mg/dL [facility] Bilirubin, Direct <0.1 0.0 - 0.3 mg/dL [facility] Est Glomerular Filtration Rate >60 >=60 [facility] Comment: This estimated GFR (eGFR) [...] the following links into your internet browser. http://[employer]/DHnkdep [email or web address]/DHMCnkf Blood specimen (specimen) 09/13/2016 11:35 AM EST 09/13/2016 11:39 AM EST Narrative Resulting Agency Comment Spec In Lab Jm Camargo MD CHEMISTRY ORDERABLES [facility] [place] [address] documented in this encounter Visit Diagnoses Diagnosis Neck pain Cervicalgia Chronic midline low back pain without sciatica Diffuse pain Generalized pain Arthralgia, unspecified joint Hypermobile joints Other joint derangement, not elsewhere classified, unspecified site Neck pain Cervicalgia Chronic midline low back pain without sciatica documented in this encounter Care Teams Waxing Machine Operator Relationship Specialty Start Date End Date Lawson Whitaker MD [address] [place] [id number] PCP - General General Internal Medicine 06/11/1601/16 documented as of this encounter
--- OUTSIDE RECORDS SUMMARY | 2024-05-14 03:38 | XMS_ITS | Encounter Summary ---
Author Organization [facility] [place] [address] Care Team Providers Care Manager Of Maintenance Name Role Phone Lawson Whitaker MD Primary Care Provider [phone] Encounter Details Date Type Department Care Team (Late st Contact Info) Description 03/25/2017 Telephone [place] [address] Brenda Raymundo LPN Social History Tobacco Use [...] let me know that for now she willnot need a refill. I have given her the phone number to the sleep clinic and she will call and schedule an appointment. documented in this encounter Plan of Treatment Not on file documented as of this encounter Visit Diagnoses Not on filedocumented in this encounter Care Teams Manager Of Maintenance Relationship Specialty Start Date End Date Lawson Whitaker MD [address] [place] [id number] PCP - General General Internal Medicine 06/11/1601/16 documented as of this encounter
--- OUTSIDE RECORDS SUMMARY | 2024-05-14 03:38 | XMS_ITS | Encounter Summary ---
Author Organization [facility] [place] [address] Care Team Providers Care Manufacturing Production Technician Name Role Phone Brandee Fuchs APRN Primary Care Provider [phone] Reason for Referral * Physical Therapy (Routine) - Closed Specialty Diagnoses / Procedures Referred By Adryan marin Referred To Contact Diagnoses Hypermobility arthralgia Arthralgia, unspecified joint Berkley Hernández APRN [facility] [place] [address] Physical Therapy, [address] [address] Referral ID Status Reason Start Date Expiration Date V isits Requested Visits Authorized [id number] Closed Evaluate and Treat 09/21/2019 03/19/2020 12 12 Encounter Details Date Type Department Care Team (Late st Contact Info) Description 09/21/2019 2:00 PM EST Office Visit Rheumatology at [facility] [place] [address] Berkley Hernández APRN [facility] [place] [address] Arthralgia, unspecified joint (Primary Dx); Hypermobility arthralgia; Chronic midline low back pain without sciatica; Sacroiliac pain Social History Tobacco Use Types Packs/Day Years [...] EST Temperature 36.2 ??C (97.2 ??F) 09/21/2019 1 :54 PM EST Respiratory Rate - - Oxygen Saturation 98% 09/21/2019 1:5 4 PM EST Inhaled Oxygen Concentration - - Weight 88 kg (194 lb) 09/21/2019 1:54 PM EST wearing winter coat and boots Height 154.9 cm (5' 1) 09/21/2019 1:54 PM EST Body Mass Index 36.66 09/21/2019 1:54 PM EST documented in this encounter Patient Instructions * Patient Instructions* Berkley Hernández APRN - 09/21/2019 2:00 PM EST I will send the MRI order to [facility] I will send gabapentin with instructions to Mely Yadav. Keep me updated on how you do with this. I will send another referral to PT documented in this encounter Progress Notes * Berkley Hernández APRN - 09/21/2019 2:00 PM [...] like to go ahead with MRI, at [facility] At first didn't feel tens unit so kept turning it up, then became extremely sensitive to touch Like PT until they overdid did with machines [facility] [place] Past 06/14/19 Malu De is a 43 [...] is, the harder to breath. She would [id number] advil at once, upset her stomach, so [...] subsequently referred to the Rheumatology Clinic at [facility] for further evaluation. 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 ?? [...] that my suspicion for inflammatory back dz is low. Order sent to [facility]. SIJ xr wnl in June 2019. Discussed benefits of pt in the setting of hypermobility, fms. Referral back to PT, which she found helpful though needs to be careful not to overexert. Consider pool therapy in the future. Start on gabapentin 300mg nightly, increase as tolerated every week until taking 300mg tid and thenpt to check in with me. Discussed possible se/adrs of this medication. Pt referred for sleep study by claire andersen. Consider trial of prescription nsaids (besides indomethacin) in the future RTC in 4 months documented in this encounter Plan of Treatment Scheduled Referrals Name Type Priority Associated Diagnoses Orde r Schedule Referral to Physical Therapy Outpatient Referral Routine Hypermobility arthralgia Arthralgia, unspecified joint Ordered: 09/21/2019 documented as of this encounter Visit Diagnoses Diagnosis Arthralgia, unspecified joint- Primary Chronic midline low back pain without sciatica Sacroiliac pain Disorders of sacrum documented in this encounter Care Teams Manufacturing Production Technician Relationship Specialty Start Date End Date Brandee Fuchs APRN PCP - General Family Medicine 01/17/19 documented as of this encounter
--- OUTSIDE RECORDS SUMMARY | 2024-05-14 03:38 | XMS_ITS | Encounter Summary ---
Author Organization [facility] Address [address] [place] [address] Care Team Providers Care Supervisor Advice Name Role Phone Lawson Whitaker MD Primary Care Provider [phone] Encounter Details Date Type Department Care Team (Late st Contact Info) Description 09/29/2022 Lab Requisition [facility] Pathology & Laboratory Medicine - [address] [address] Outr Resulting Lab, Provider Social History Tobacco [...] Procedure Name Priority Date/Time Associated Diagnosis Comments ZZCOVID-19 TEST [facility] PCR Today 09/27/2022 17:35 EST COVID-19 TESTING Routine 09/27/2022 17:3 5 EST documented in this encounter Results * COVID-19 TEST [facility] PCR (09/27/2022 17:35 EST) Swab 09/27/2022 17:3 5 EST 09/29/2022 16:30 EST Provider Outr Resulting Lab MICROBIOLOGY - GENERAL ORDERABLES [facility] [address] [place] [address] * (ABNORMAL) COVID-19 TESTING (09/27/2022 17:35 EST) COVID-19 rt-PCR Result Positive( AA) Negative 09/30/2022 10:52 EST [facility] Comment: This test has not been FDA cleared or approved. This test has been authorized by FDA under an EUA for use by authorized laboratories. This test has been authorized only for detection of nucleic acid from 2019-nCoV, not for any other viruses or pathogens. This test is only authorized for the duration of the declaration that circumstances exist justifying the authorization of emergency use of in vitro diagnostic tests for detection and/or diagnosis of 2019-nCoV under section 564(b)(1) of Act, 21 U.S.C ?? 360bbb-3(b) (1), unless the authorization is terminated or revoked sooner. Testing was performed using the sarah SARS-CoV-2 assay ([employer] on the Sarah 6800 System Performing Lab Sarah [address] [facility] Lab 09/30/2022 10:52 EST [facility] Swab 09/27/2022 17:3 5 EST 09/29/2022 16:30 EST Provider Outr Resulting Lab MICROBIOLOGY - GENERAL ORDERABLES [facility] [address] [place] [address] documented in this encounter Visit Diagnoses Not on filedocumented in this encounter Additional Health Concerns Infection Onset Date Last Indicated Resolved Time COVID-19 09/27/2022 09/27/2022 10/17/2022 22:1 5 EST documented as of this encounter Care Teams Supervisor Advice Relationship Specialty Start Date End Date Lawson Whitaker MD [address] [place] [address] PCP - General 03/26/15 documented as of this encounter
--- OUTSIDE RECORDS SUMMARY | 2024-05-14 03:38 | XMS_ITS | Encounter Summary ---
Author Organization [facility] Address [address] [place] [address] Care Team Providers Care Watch Manufacturing Supervisor Name Role Phone Lawson Whitaker MD Primary Care Provider [phone] Encounter Details Date Type Department Care Team (Late st Contact Info) Description 12/01/2022 Lab Requisition [facility] Pathology & Laboratory Medicine - [address] [address] Outr Resulting Lab, Provider Social History Tobacco [...] Procedure Name Priority Date/Time Associated Diagnosis Comments THYROPEROXIDASE ANTIBODY Routine 11/30/2022 15:08 EST ANTI THYROGLOBULIN Routine 11/30/2022 15 :08 EST documented in this encounter Results * (ABNORMAL) THYROPEROXIDASE ANTIBODY (11/30/2022 15:08 EST) Thyroperoxidase Ab >1,300(H) <=60 U/mL 2022 18:[address] [facility] Blood VENOUS BLOOD / Unknown 11/30/2022 15:08 EST 12/01/2022 17:05 EST Provider Outr Resulting Lab CHEMISTRY & BLOOD GAS ORDERABLES Performing Organization Address [facility] Co de Phone Number [facility] [address] [place] [address] * (ABNORMAL) ANTI THYROGLOBULIN (11/30/2022 15:08 EST) Anti-Thyroglob ulin >500(H) <=60 U/mL 12/01/2022 18:[address] [facility] Blood VENOUS BLOOD / Unknown 11/30/2022 15:08 EST 12/01/2022 17:05 EST Provider Outr Resulting Lab CHEMISTRY & BLOOD GAS ORDERABLES Performing Organization Address [facility] Co de Phone Number [facility] [address] [place] [address] documented in this encounter Visit Diagnoses Not on filedocumented in this encounter Care Teams Watch Manufacturing Supervisor Relationship Specialty Start Date End Date Lawson Whitaker MD [address] [place] [address] PCP - General 03/26/15 documented as of this encounter
--- OUTSIDE RECORDS SUMMARY | 2024-05-14 03:38 | XMS_ITS | Encounter Summary ---
Author Organization [place] [address] Care Team Providers Care Cocoa Bean Roaster Name Role Phone Lawson Whitaker MD Primary Care Provider [phone] Encounter Details Date Type Department Care Team (Late st Contact Info) Description 11/01/2016 Telephone [place] [id number] Brenda Raymundo LPN Social History Tobacco Use [...] cause of her diffuse pain? Thanks Jm * Telephone Encounter - Brenda Raymundo LPN [...] on filedocumented in this encounter Care Teams Cocoa Bean Roaster Relationship Specialty Start Date End Date Lawson Whitaker MD [address] [place] [address] PCP - General General Internal Medicine 06/11/1601/16 documented as of this encounter
--- OUTSIDE RECORDS SUMMARY | 2024-05-14 03:38 | XMS_ITS | Encounter Summary ---
Author Organization [facility] [place] [address] Care Team Providers Care Shop Tech Name Role Phone Lawson Whitaker MD Primary Care Provider [phone] Reason for Visit * Consultation (Routine) - Canceled Specialty Diagnoses / Procedures Referred By Adryan marin Referred To Contact Neurology Diagnoses Diffuse pain Jm Camargo MD [facility] [address] [facility] [address] [place] [address] Referral ID Status Reason Start Date Expiration Date V isits Requested Visits Authorized [id number] Canceled Consult, Test & Treat 09/13/2016 09/13/2017 1 1 Encounter Details Date Type Department Care Team (Latest Contact Info) Description 10/18/2016 8:30 AM EST Procedure [place] [address] Camron Abbasi MD [facility] [place] [place] [address] Chronic pain syndrome Social History Tobacco Use Types Packs/Day Years Used Date Smoking Tobacco: Former Sex and Gender Information Value Date Recorded Sex Assigned at Not on file Gender Identity Not on file Sexual Orientation Not on file documented as of this encounter Progress Notes * Mowchun, Camron J, MD - 10/18/2016 8:30 AM EST I was asked to see Malu De at the request of Dr. Camargo for EMG nerve conduction studies for evaluation of question of peripheral neuropathy in the context of chronic pain. Malu is a 40-year-old female who notes diffuse pain in upper lower extremities, cervical region, low back. She denies any tingling. On focused exam, strength testing is 5/5 in the upper and lower extremities, normal sensation to light touch in the lower extremities. EMG NERVE CONDUCTION STUDIES: Please see report for complete data. Lower extremity nerve conduction studies, including sural, peroneal, and tibial, all normal. Right radial sensory study also normal. Focused EMG of right lower extremity for tibialis anterior and medial head of gastroc shows no active denervation. Normal motor unit action potentials. Right peroneal motor study, as well as right sural sensory, were normal. Left tibial motor study is normal. Left radial sensory study is normal. ASSESSMENT: EMG nerve conduction studies are normal, do not demonstrate electrophysiologic evidence or electrodiagnostic evidence of a generalized peripheral neuropathy. The patient will follow up with Dr. Camargo. documented in this encounter Plan of Treatment Not on file documented as of this encounter Visit Diagnoses Diagnosis Chronic pain syndrome documented in this encounter Care Teams Shop Tech Relationship Specialty Start Date End Date Lawson Whitaker MD [address] [address] PCP - General General Internal Medicine 06/11/1601/16 documented as of this encounter
--- OUTSIDE RECORDS SUMMARY | 2024-05-14 03:38 | XMS_ITS | Encounter Summary ---
Author Organization [facility] Address [facility] [place] [address] Care Team Providers Care Systems Lead Name Role Phone Brandee Fuchs CORPORATE TRAVEL AGENT Primary Care Provider [phone] Reason for Visit * Consultation (Routine) - Specialty Diagnoses / Procedures Referred By Adryan marin Referred To Contact Hematology and Oncology Diagnoses ANEMIA, IRON DEFICIENCY Brandee Fuchs, [address] [place] [address] [facility] Hem Onc Office [address] [place] [phone] Referral ID Status Reason Start Date Expiration Date V isits Requested Visits Authorized [id number] Consult, Test & Treat [facility] 01/17/2019 01/17/2020 6 6 Encounter Details Date Type Department Care Team (Late st Contact Info) Description 05/31/2019 10:30 AM EDT Office Visit Hematology/Oncology at [address] [address] Ashok Hernandez MD [facility] [address] [place] [address] Iron deficiency anemia, unspecified iron deficiency anemia [...] Sign Reading Time Taken Comments Blood Pressure 108/65 05/31/2019 10:31 AM EDT Pulse 64 05/31/2019 10:31 AM EDT Temperature 37 ??C (98.6 ??F) 05/31/2019 10:31 AM EDT Respiratory Rate 20 05/31/2019 10:31 AM EDT Oxygen Saturation 100% 05/31/2019 10:31 AM EDT Inhaled Oxygen Concentration - - Weight 81.6 kg (180 lb) 05/31/2019 10:31 AM EDT Height 157.5 cm (5' 2.01) 05/31/2019 10:31 AM E DT copied Body Mass Index 32.91 05/31/2019 10:31 AM EDT documented in this encounter Progress Notes * Ashok Hernandez MD - 05/31/2019 10:30 AM EDT Reason for Consult: We are seeing this patient at the request of Brandee Roger K, CORPORATE TRAVEL AGENT [address] [place], [place] [address]for the evaluation of recurrent iron deficiency anemia. I have reviewed the available records, interviewed and examined the patient. I am seeing her in the [facility]. The patient was seen a couple of years ago in the [place] hematology clinic by Dr. Mccollum. She was diagnosed with clear iron deficiency anemia. She got about 1000 mg of intravenous iron in her anemia resolved. She did not tolerate those iron infusions very well. Nausea vomiting and diarrhea of each 1 of them. She would like to avoid additional IV iron if possible. She has started iron sulfate twice a day about a week and half ago. My review of the laboratories show she is mildly anemic again with a hemoglobin of 11 and MCV of 68. Her most recent ferritin was 5. She did have an upper endoscopy but has never had a colonoscopy. Her periods are not very heavy lasting only a couple of days. She has not seen any other source of blood loss. Patient Active Problem List Diagnosis Date Noted ??? Asthma 09/20/2016 Past Medical History: Diagnosis Date ??? Asthma [...] resource strain: Not on file ??? Food insecurity: Worry: Not on file Inability: Not on file ??? Transportation needs: Medical: Not on file Non-medical: Not on file Tobacco Use ??? Smoking status: Former Smoker Types: Cigarettes Last attempt to quit: 01/04/2003 Years since quittin.4 ??? Smokeless tobacco: Never Used Substance and Sexual Activity ??? Alcohol use: No ??? Drug use: No ??? Sexual activity: Not on file Lifestyle ??? Physical activity: Days per week: Not on file Minutes per session: Not on file ??? Stress: Not on file Relationships ??? Social connections: Talks on phone: Not on file Gets together: Not on file Attends christianity service: Not on file Active member of club or organization: Not on file Attends meetings of clubs or organizations: Not on file Relationship status: Not on file ??? Intimate partner violence: Fear of current or ex partner: Not on file Emotionally abused: Not on file Physically abused: Not on file Forced sexual activity: Not on file Other Topics Concern ??? Not on file Social History Narrative ??? Not on file Allergies: Allergies Allergen Reactions ??? Acetaminophen Mouth blisters ??? Cyclobenzaprine Other (See Comments) Small blisters ??? Indomethacin ??? Vicodin [Hydrocodone-Acetaminophen] Mouth blisters Medications: Current Outpatient Medications Medication Sig Dispense Refill ??? multivitamin (THERAGRAN) Tablet Take 1 tablet by mouth daily. ??? folic acid (FOLVITE) 1 mg Tablet Take 1 mg by mouth daily. ??? ferrous sulfate 325 mg (65 mg iron) Tablet Take 1 tablet by mouth 2 times daily (after meals). 180 tablet 3 ??? albuterol (PROVENTIL) 2.5 [...] (NASACORT OR NASACORT OTC) 55 mcg Aerosol, [place] 2 sprays by Nasal route daily. ??? ergocalciferol (ERGOCALCIFEROL) 50,000 unit Capsule Take [...] symptoms Dermatological ROS: negative Physical Exam BP 108/65 (Patient Position: Sitting) Pulse 64 Temp 37 ??C (98.6 ??F) (Oral) Resp 20 Ht 157.5 cm (5' 2.01) Comment: copied Wt 81.6 kg (180 lb) SpO2 100% BMI 32.91 kg/m?? General Appearance: Alert, cooperative, no distress, [...] supraclavicular, and axillary nodes normal Neurologic: Normal Assessment and Plan Malu De is a 43 y.o. female with iron deficiency anemia. She had clear iron deficiency a couple years ago which completely resolved with intravenous iron. Again she is iron deficient. This suggests that she has ongoing losses that are more substantial than it appears her menstrual cycles are. I did recommend further GI evaluation, specifically a colonoscopy. We also talked about iron repletion. Recently it has been demonstrated that taking 1 iron tablet every other day results in more iron absorption with fewer GI side effects. I recommended that she trythat for the next couple of months. If she is unable to replete herself with this oral strategy I would recommend intravenous iron. I would plan to premedicate her to avoid the GI symptoms she had before. Today I did spend considerable time talking about iron metabolism in the way of the bone marrow uses iron to produce red blood cells. I do not think she has an intrinsic marrow disorder since when she does have adequate iron she does normalize her hemoglobin. We will check a CBC, ferritin, serum iron and TIBC now and again in 2 months to see if she is able to make progress with this oral strategy. * Milagros Ryder RN - 05/31/2019 10:30 AM EDT MEDICAL ONCOLOGY INITIAL NURSING ASSESSMENT ADVANCE DIRECTIVES: In EDH [ ] Has documents [ ] Will bring in [ ] IF NO: Advance Directive pamphlet provided : Referral to Care Management : SW to see. No Advanced Directives on file PRESENTING SYSTEMS and PATHOLOGY: as per Dr. Hernandez REVIEW OF SYSTEMS: as per Dr. Hernandez Prior Radiotherapy: no[ x ] Yes[ ]Site Date Facility Prior Chemotherapy: no[ x ] Yes[ ] Drug: Oncologist- LastTreatment: NO: YES: Claustrophobia or requires sedation for MRIs x Allergy to CT or MRI contrast agent or iodine or shellfish x Diabetic and on metformin x Metal in body, implanted device, worked with metal, body piercings,braces x Dentures or hearing device x Pacemaker x Difficulty breathing while lying flat x Kidney problems/creatinine x Balance difficulty: [ x ]no [ ]yes At risk for fall: [x ] no [ ] yes If yes, actions implemented to prevent fall. Patient/family instructed to avoid independent ambulation. Use wheelchair and ask for assistance of staff while in the clinic. ADL [x ] no limits [ ] needs dressing assistance [ ] needs meal assistance Assistive device:[ ]none [ ]cane [ ]walker [ ]wheelchair [ ]other: explain PAIN ASSESSMENT: [5 ] out of 10 Location: joints (Has RA0 especially neck Description: [ ] Dull [ ] Sharp [ ] Burning [ ] Throbbing [ ] Radiating [ ] Continuous [ ]Intermittent Aggravating Factors: [ x ] Movement [x ] Position [ ]Immobility [ ]Other Alleviating Factors: [ ]Medication [ x ] Positioning [ ] Other Current Pain Management Plan: [ x ]Satisfied [ ] Not satisfied SOCIAL ASSESSMENT: See EDH social assessment information entered. Support Systems: transportation plan: [x ]private vehicle [ ] RCT needs Social Work referral [ ] Unknown at this time needs Social Work referral Barriers to treatment: none Referrals/Interventions: LEARNING STYLE: Visual and verbal, wants written material and verbal discussion. TEACHING: __ [facility] ???Chemotherapy and You?? and folder given. NA __ Specific chemotherapy literature provided and reviewed with patient. NA documented in this encounter Plan of Treatment Not on file documented as of this encounter Visit Diagnoses Diagnosis Iron deficiency anemia, unspecified iron deficiency anemia type documented in this encounter Care Teams Systems Lead Relationship Specialty Start Date End Date Brandee Fuchs APRN PCP - General Family Medicine 01/17/19 documented as of this encounter
--- OUTSIDE RECORDS SUMMARY | 2024-05-14 03:38 | XMS_ITS | Encounter Summary ---
Author Organization [facility] Address [facility] [address] Care Team Providers Care Recovery Manager Name Role Phone Brandee Fuchs Obdulia GAMBLE Primary Care Provider [phone] Reason for Referral * Consultation (Routine) - Closed Specialty Diagnoses / Procedures Referred By Adryan marin Referred To Contact Sleep Center Diagnoses Fatigue, unspecified type Nuha Dubon MD [facility] [place] [address] [facility] Sleep Medicine [address] [place] [address] Referral ID Status Reason Start Date Expiration Date V isits Requested Visits Authorized [id number] Closed Consult, Test & Treat 09/17/2019 09/16/2020 1 1 Reason for Visit * Reason Comments Referral Encounter Details Date Type Department Care Team (Late st Contact Info) Description 09/17/2019 4:00 PM EST Office [place] [address] Nuha Dubon MD [facility] [place] [address] Moderate persistent asthma, unspecified whether complicated; Fatigue, unspecified type; Environmental allergies Social History Tobacco Use Types [...] Progress Notes * Nuha Dubon MD - 09/17/2019 4:00 PM EST Images from the original note were not included. [facility] Section of Pulmonary and Critical Care Medicine Outpatient Consultation Date of Encounter: 09/17/2019 Referring Provider: No referring provider defined for this encounter. Reason for Evaluation: Brandee Fuchs APRN referred Ms. Malu De to the pulmonary clinic for evaluation and management of asthma. I independently interviewed and examined the patient in the office and have reviewed available records. Dear Ms. Jef APRN, As you know, Malu De is a 43 y.o. woman with history of asthma, allergies, fibromyalgia andGERD who was referred due to uncontrolled asthma after fci of her previous lubrication supervisor in [facility]. Ms. De reports that her [...] well as her fibromyalgia flares and back spasms as a significant contributor to her dyspnea (cause her to feel unable to take a breath). Some cleaning supplies or strong odors and chemicals can also trigger breathing problems, and she tries to avoid these and other perfumes. She has been followed previously by Pulmonary in [facility] for years. Her last ED visit was in October for dyspnea; she recalls many prior ED visits and some admissions for dyspnea, but denies anyhistory of intubations. She had a smaller respiratory flare in June and was treated with a steroid course for this then (medrol dose pack), and had had a previous oral steroid course in November of this year. She feelssteroids are helpful and improve dyspnea and wheezing when respiratory symptoms worsen. She has allergic rhinitis and is followed by an allergy team in [facility] and has had prior allergy testing [...] worse and was discontinued (this was at [facility] in [place], with Dr. Jj (sp?).) She has also been evaluated by ENT Dr. Carter in [facility] after CT imaging was suggestive of nasal polyps. She believes she underwent laryngoscopy at that visit to evaluate for nasal polyps,but that they did not find polyps and [...] anoro ellipta (discontinued by a specialist at [facility] b/c she was on double-LABA therapy at that time), symbicort, dulera (caused bad side effects), flovent discus andHFA versions. She is unable to say why she was changed off of some of these medications. Currently she feels her combination of inhalers is working well between respiratory flares. Quality of sleep is a significant issue, and affected by chronic pain and dyspnea. A sleep referralwas recommended, but she has not yet been evaluated for this. She has some night sweats and wakes frequent with sensation of dyspnea. This occurs without edema or chest pain. As a child she recalls having breathing problems. She recalls her was complicated by being blue and hanging from an umbilical cord, and she wheezed a lot as a young child and was treated with some oral medication for a few years. She recalls dyspnea on exertion as a child. She was formally diagnosed with asthma at age 16. She reports pregnancies have been complicated by dyspnea, hypoxiaand many years of ongoing breathing problems, with frequent steroid requirements. There is no history of lung disease in the family other than seasonal allergies in her mom. She is a former smoker, 1/2 ppd for about 11 years, and quit in 2002. She is very bothered by being around people who are vaping. She lives with a smoker, who tries to smoke outdoors. She is currently unemployed. 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 ??? [...] deep breath appears to have difficulty sustaining inhalationto end of breath with diminished breath sounds however when ausculating during phonation she has easy air entry to bases; there is no crackles or wheezing, no cyanosis or clubbing ABD: +BS, soft, NT/ND, no palpable HSM or mass MSK: no joint swelling or warmth, normal bulk and tone EXT: warm, perfused, no edema, not tender DERM: no rash or lesions NEURO: AAO, voice clear Pulmonary Function Test Results: Not performed at this visit. Previous spirometry 03/16/2019 at [facility] demonstrates moderate airflow obstruction and dramatic response to bronchodilator challenge (FEV1 1.52 -->2.44 L with BD challenge), with normal lung volumes and normal diffusing capacity. Labs, Microbiology and Imaging: I personally reviewed relevant laboratory, microbiologic and radiology results which were significant for: Eosinophils 600 on prior CBCs in 2017 Immunization History: Flu vaccine: Pneumovax: unknown Prevnar-13: NA Impression and Recommendations: Malu De is a 43 y/o woman with frequent dyspnea in the setting of diagnosis of asthma, allergies, GERD, and fibromyalgia, presenting to transfer her pulmonary care to our center after her previous lubrication supervisor retired. Spirometry was not repeated at this visit; prior spirometry demonstrates initially low airflow with a slow up-tick in flow which dramatically improves in a seemingly non-physiologic manner with albuterol in March of 2019. Her respiratory exam at this visit was variable and did include periods of good air movement in the chest. Based on her description of variable dyspnea with acute worsening related to fibromyalgia and back spasms I suspect her dyspnea is multifactorial and she may also have a component of vocal chord dysfunction contributing to her dyspnea. She is followed by an organ pipe finisher and had significant eosinophilia on prior labs but worsened while on a trial of xolair; we will reassess airflow with her next visit and may reconsider biologic therapies if kelsi de la torre develops persistent airflow abnormalities in the future. For now, I recommend she remain on triple inhaled therapy with breo ellipta and spiriva respimat, with a goal of avoiding further need for oral steroids. She may continue to use albuterol PRN with dyspnea or wheezing and was also encouragedto try relaxation techniques when short of breath to address her self-described contribution from back muscle spasms and pain. She was encouraged to limit tobacco exposure (currently second hand in her home), and avoid known respiratory triggers. Her nocturnal awakenings from dyspnea may represent ROSALVA and I recommended a sleep evaluation for this. GERD can contribute to uncontrolled asthma but current is reported as controlled. Summary Recommendations: - I suspect dyspnea [...] questions or concerns Nuha Dubon MD [facility] PULMON[facility] AT [facility] [address] Dept: [phone] Loc: [phone] documented in this encounter Plan of Treatment Scheduled Referrals Name Type Priority Associated Diagnoses Orde r Schedule Referral to Sleep Disorders Center Outpatient Referral Routine Fatigue, unspecified type Ordered: 09/17/2019 documented as of this encounter Results * [...] complicated documented in this encounter Care Teams Recovery Manager Relationship Specialty Start Date End Date Brandee Fuchs, GENERAL PEDIATRICIAN PCP - General Family Medicine 01/17/19 documented as of this encounter
--- OUTSIDE RECORDS SUMMARY | 2024-05-14 03:39 | XMS_ITS | Encounter Summary ---
Author Organization [facility] Address [address] [place] [address] Care Team Providers Care On Site Nurse Name Role Phone Lawson Whitaker MD Primary Care Provider [phone] Encounter Details Date Type Department Care Team (Latest Contact Info) Description 03/26/2015 13:07 EDT - 03/26/2015 23:59 EDT Hospital Encounter [facility] [address] [place] [address] Alex Green MD [address] [place] [phone] Discharge Disposition: Home or Self Care Social History Tobacco Use Types Packs/Day Years Used Date Smoking Tobacco: Never Assessed Sex and Gender Information Value Date Recorded Sex Assigned at Not on file Gender Identity Not on file Sexual Orientation Not on file documented as of this encounter Discharge Disposition Disposition Code Departure Means Destination Home or Self Usp documented in this encounter Plan of Treatment Not on file documented as of this encounter Procedures Procedure Name Priority Date/Time Associated Diagnosis Comments IGA Routine 03/26/2015 13:20 EDT ANCA, IFA Routine 03/26/2015 13:20 EDT SED RATE Routine 03/26/2015 13:20 EDT COMPLETE BLOOD COUNT AND DIFFERENTIAL Routine 03/26/2015 13:20 EDT C REACTIVE PROTEIN Routine 03/26/2015 13 :20 EDT ANTI NUCLEAR AB (YURI), IFA Routine 03/26/2015 13:20 EDT IGE Routine 03/26/2015 13:20 EDT IGM Routine 03/26/2015 13:20 EDT IGG Routine 03/26/2015 13:20 EDT COMPREHENSIVE METABOLIC PANEL (CMP) Routine 03/26/2015 13:20 EDT documented in this encounter Results * SED. RATE:WESTERGREN (03/26/2015 13:20 EDT) Pathologist [facility] Sed. Rate Westergren 16 0 - 20 mm/hr 03/26/2015 14:01 EDT [facility] BLOOD SPECIMEN / Unknown 03/26/2015 13:20 EDT 03/26/2015 13:53 EDT Alex Green MD HEMATOLOGY & PF4 ORD ERABLES [facility] [address] [place] [address] * IGM (03/26/2015 13:20 EDT) Pathologist [facility] IgM 246 46 - 304 mg/dl 03/26/2015 14:56 EDT [facility] BLOOD SPECIMEN / Unknown 03/26/2015 13:20 EDT 03/26/2015 13:53 EDT Alex Green MD CHEMISTRY & BLOOD GA S ORDERABLES [facility] [address] [place] [address] * IGG (03/26/2015 13:20 EDT) IgG 818 751 - 1,560 mg/dl 03/26/2015 14:56 EDT [facility] BLOOD SPECIMEN / Unknown 03/26/2015 13:20 EDT 03/26/2015 13:53 EDT Alex Green MD CHEMISTRY & BLOOD GA S ORDERABLES [facility] [address] [place] [address] * IGE (03/26/2015 13:20 EDT) IgE 123 <158 IU/ml 03/26/2015 14:48 EDT [facility] BLOOD SPECIMEN / Unknown 03/26/2015 13:20 EDT 03/26/2015 13:53 EDT Alex Green MD CHEMISTRY & BLOOD GA S ORDERABLES Performing Organization Address City/[facility]/ZIP Co de Phone Number [facility] [address] [place] [address] * IGA (03/26/2015 13:20 EDT) IgA 251 82 - 453 mg/dl 03/26/2015 14:56 EDT [facility] BLOOD SPECIMEN / Unknown 03/26/2015 13:20 EDT 03/26/2015 13:53 EDT Alex Green MD CHEMISTRY & BLOOD GA S ORDERABLES Performing Organization Address City/[facility]/ZIP Co de Phone Number [facility] [address] [place] [phone] * (ABNORMAL) C-REACTIVE PROTEIN (03/26/2015 13:20 EDT) C-Reactive Protein 1.3(H) <1.0 mg/dl 03/26/2015 14:26 EDT [facility] BLOOD SPECIMEN / Unknown 03/26/2015 13:20 EDT 03/26/2015 13:53 EDT Alex Green MD CHEMISTRY & BLOOD GA S ORDERABLES [facility] [address] [place] [address] * (ABNORMAL) COMPREHENSIVE METABOLIC PANEL (CMP) (03/26/2015 13:20 [facility]) Potassium 4.5 3.5 - 5.0 mEq/L 03/26/2015 14:26 [facility] Sodium 139 136 - 145 mEq/L 03/26/2015 14:26 [facility] Chloride 101 96 - 110 mEq/L 03/26/2015 14:26 [facility] CO2 27 24 - 32 mEq/L 03/26/2015 14:26 [facility] Total Alkaline Phosphatase 65 38 - 126 U/L 03/26/2015 14:26 [facility] Bilirubin, Total 0.6 <1.4 mg/dl 03/26/20 15 14:26 [facility] AST 21 15 - 46 U/L 03/26/2015 14:26 [facility] ALT 31 <53 U/L 03/26/2015 14:26 [facility] Albumin 4.2 3.4 - 4.9 g/dl 03/26/2015 14:26 [facility] Total Protein 7.0 6.5 - 8.3 g/dl 03/26/2015 14:26 [facility] Creatinine 0.76 0.52 - 1.04 mg/dl 03/26/2015 14:26 [facility] GFR, Calculated >60 >60 ml/min/1.7 3m2 03/26/2015 14:26 [facility] BUN 9(L) 10 - 26 mg/dl 03/26/2015 14:26 [facility] Calcium 9.9 8.5 - 10.5 mg/dl 03/26/2015 14:26 [facility] Calculated Calcium 10.1 8.5 - 10.5 mg/dl 03/26/2015 14:26 [facility] Glucose, Serum 77 70 - 100 mg/dl 03/26/2015 14:26 [facility] Fasting? Unknown 03/26/2015 14:26 [facility] BLOOD SPECIMEN / Unknown 03/26/2015 13:20 EDT 03/26/2015 13:53 EDT Alex Green MD CHEMISTRY & BLOOD GA S ORDERABLES [facility] [address] [place] [address] * (ABNORMAL) HEMAGRAM AND DIFFERENTIAL (03/26/2015 13:20 EDT) WBC 13.82(H) 4.0 - 12.4 K/cmm 03/26/2015 14:03 [facility] RBC 5.54(H) 3.86 - 5.04 M/cmm 03/26/2015 14:03 [facility] Hemoglobin 13.2 11.6 - 15.2 gm/dl 03/26/2015 14:03 [facility] HCT 42.0 34.9 - 44.4 % 03/26/2015 14:03 [facility] MCV 76(L) 81 - 98 fl 03/26/2015 14:03 [facility] MCH 23.9(L) 26.7 - 33.3 pg 03/26/2015 14:03 [facility] Hypochromia 1+ 03/26/2015 14:03 [facility] MCHC 31.5(L) 32.1 - 35.9 gm/dl 03/26/2015 14:03 [facility] RDW-CV 19.7(H) 11.7 - 14.6 % 03/26/2015 14:03 [facility] RDW-SD 51.6(H) 37.6 - 50.3 fl 03/26/2015 14:03 [facility] Anisocytosis 2+ 03/26/2015 14:03 [facility] PLT 487(H) 141 - 320 K/cmm 03/26/2015 14:03 [facility] MPV 7.5 7.5 - 11.2 fl 03/26/2015 14:03 [facility] % Neutrophils 63.6 45.5 - 79.7 % 03/26/2015 14:03 [facility] % Lymphocytes 27.3 15.0 - 46.8 % 03/26/2015 14:03 [facility] % Monocytes 5.2 1.8 - 12.0 % 03/26/2015 14:03 [facility] % Eosinophils 3.7 0.6 - 6.9 % 03/26/2015 14:03 [facility] % Basophils 0.2 0.2 - 1.4 % 03/26/2015 14:03 [facility] ABS Neutrophils 8.79 2.20 - 8.85 K/cmm 03/26/2015 14:03 [facility] ABS Lymphs 3.77(H) 1.09 - 3.30 K/cmm 03/26/2015 14:03 [facility] ABS Monocytes 0.72 0.1 - 0.8 K/cmm 03/26/2015 14:03 [facility] ABS Eosinophils 0.52 0.03 - 0.61 K/cmm 03/26/2015 14:03 [facility] ABS Basophils 0.03 0.01 - 0.11 K/cmm 03/26/2015 14:03 [facility] Type of Diff: Automated 03/26/2015 14:03 [facility] BLOOD SPECIMEN / Unknown 03/26/2015 13:20 EDT 03/26/2015 13:53 EDT Alex Green MD PACKAGES & DNA PROBE ORDERABLES [facility] [address] [place] [address] * ANCA (03/26/2015 13:20 EDT) ANCA <20 <20 dils 03/27/2015 15:34 EDT [facility] BLOOD SPECIMEN / Unknown 03/26/2015 13:20 EDT 03/26/2015 13:53 EDT Alex Green MD IMMUNOLOGY AND SEROL OGY ORDERABLES Performing Organization Address City/[facility] Co de Phone Number [facility] [address] [place] [address] * ANTI NUCLEAR ANTIBODY (03/26/2015 13:20 EDT) Anti Nuclear Ab <40 0 - 40 Dils 03/27/2015 15:42 EDT [facility] BLOOD SPECIMEN / Unknown 03/26/2015 13:20 EDT 03/26/2015 13:53 EDT Alex Green MD IMMUNOLOGY AND SEROL OGY ORDERABLES Performing Organization Address [facility] Co de Phone Number [facility] [address] [place] [address] documented in this encounter Visit Diagnoses Not on filedocumented in this encounter Care Teams On Site Nurse Relationship Specialty Start Date End Date Lawson Whitaker MD [address] [place] [address] PCP - General 03/26/15 documented as of this encounter
--- OUTSIDE RECORDS SUMMARY | 2024-05-14 03:39 | XMS_ITS | Encounter Summary ---
Author Organization [facility] Address [address] [place] [address] Care Team Providers Care Vp Cardiovascular Name Role Phone Unavailable Primary Care Provider Unavailabl e Encounter Details Date Type Department Care Team (Late st Contact Info) Description 04/17/2004 Results Only [facility] [address] [place] [address] Florentino Whitfield MD [address] [place], [place] [id number] Social History Tobacco Use Types Packs/Day Years Used Date Smoking Tobacco: Never Assessed Sex and Gender Information Value Date Recorded Sex Assigned at Not on file Gender Identity Not on file Sexual Orientation Not on file documented as of this encounter Plan of Treatment Not on file documented as of this encounter Procedures Procedure Name Priority Date/Time Associated Diagnosis Comments CYTOPATHOLOGY Routine 04/17/2004 0:00 EDT documented in this encounter Results * CYTOPATHOLOGY (04/17/2004 0:00 EDT) Pathology Report: CYTOPATHOLOGY REPORT Reports generated via electronic interface contain original data; however they are lacking the format of the original report. Caution should be taken when reading/interpreti ng unformatted reports. Name: ? MALU DE ? Accession #: ? [id number] : ? 1975 (Age: 28) ??F ?Collect Date: ? 04/17/2004 Location: ? [facility] ? Receive Date: ? 04/20/2004 Provider: ?FLORENTINO WHITFIELD MD Copy to: ? Specimen/Source: ?ThinPrep Pap Test, Cervix/Endocervix Last Menstrual Period: ? 05/01/03 Menstrual/Pregnanc y Status: ? Post Previous Gynecologic Pathology: ? LSIL: Can't R/o HSIL 07/12 ? SPECIMEN ADEQUACY ? Satisfactory for Evaluation - transformation zone component present GENERAL CATEGORIZATION ? Negative for Intraepithelial Lesion or Malignancy ? Document reviewed and electronically signed by: ? JORDAN Sellers(ASCP) ? Report Date: ??04/24/2004 09:24 End of Report ROLAND ANDERSON 04/17/2004 04/20/2004 Florentino Whitfield MD PATHOLOGY ORDERABLES [facility] ANDERSON [address] [place] [address] documented in this encounter Visit Diagnoses Not on filedocumented in this encounter
--- OUTSIDE RECORDS SUMMARY | 2024-05-14 03:39 | XMS_ITS | Encounter Summary ---
Author Organization [facility] Address [address] [place] [address] Care Team Providers Care Locator Name Role Phone Unavailable Primary Care Provider Unavailabl e Encounter Details Date Type Department Care Team (Late st Contact Info) Description 07/18/2003 Results Only [facility] [address] [place] [address] Jose Walker MD [address] [place] [address] Social History Tobacco Use Types Packs/Day Years Used Date Smoking Tobacco: Never Assessed Sex and Gender Information Value Date Recorded Sex Assigned at Not on file Gender Identity Not on file Sexual Orientation Not on file documented as of this encounter Plan of Treatment Not on file documented as of this encounter Procedures Procedure Name Priority Date/Time Associated Diagnosis Comments CYTOPATHOLOGY Routine 07/18/2003 0:00 EDT documented in this encounter Results * CYTOPATHOLOGY (07/18/2003 0:00 EDT) Pathology Report: CYTOPATHOLOGY REPORT Reports generated via electronic interface contain original data; however they are lacking the format of the original report. Caution should be taken when reading/interpreti ng unformatted reports. Name: ? MALU DE ? Accession #: ? [id number] : ? 1975 (Age: 27) ??F ?Collect Date: ? 07/18/2003 Location: ? [facility] ? Receive Date: ? 07/22/2003 Provider: ?JOSE WALKER MD Copy to: ? Specimen/Source: ?ThinPrep Pap Test, Cervix/Endocervix Last Menstrual Period: ? 05/01/03 Menstrual/Pregnanc y Status: ? Hormonal/Contracep tive Status: ? Depo-Provera Other: ? HPVA - HPV testing requested if ASC-US on the current ThinPrep Pap test. ? SPECIMEN ADEQUACY ? Satisfactory for Evaluation - transformation zone component present GENERAL CATEGORIZATION ? Epithelial Cell Abnormality INTERPRETATION ? Squamous Cell Abnormality - Low grade squamous intraepithelial lesion (LSIL), cannot exclude ? high grade squamous intraepithelial lesion (HSIL). EDUCATIONAL NOTES/RECOMMENDATI ONS ? [facility] recommends following the 2001 Consensus Guidelines for the Management of Women with Cervical Cytological Abnormalities (PARI,2002;287:212 0-9). Management algorithms have been distributed by [facility] and are available online at www.[email or web address]. ? Document reviewed and electronically signed by: ? Monik Flores MD ? Report Date: ??07/29/2003 15:35 End of Report ROLAND ANDERSON 07/18/2003 07/22/2003 Jose Walker MD PATHOLOGY ORDERABLES [facility] AND[facility] [address] [place] [address] documented in this encounter Visit Diagnoses Not on filedocumented in this encounter
--- OUTSIDE RECORDS SUMMARY | 2024-05-14 03:39 | XMS_ITS | Encounter Summary ---
Author Organization [facility] Address [address] [place] [address] Care Team Providers Care Cotton Weigher Name Role Phone Unavailable Primary Care Provider Unavailabl e Encounter Details Date Type Department Care Team (Late st Contact Info) Description 12/15/2004 Results Only [facility] - [facility] conversion [address] [place] [address] Florentino Whitfield MD [address] [place], [place] [id number] Social History Tobacco Use Types Packs/Day Years Used Date Smoking Tobacco: Never Assessed Sex and Gender Information Value Date Recorded Sex Assigned at Not on file Gender Identity Not on file Sexual Orientation Not on file documented as of this encounter Plan of Treatment Not on file documented as of this encounter Procedures Procedure Name Priority Date/Time Associated Diagnosis Comments CYTOPATHOLOGY Routine 12/15/2004 0:00 EST documented in this encounter Results * CYTOPATHOLOGY (12/15/2004 0:00 EST) Pathology Report: CYTOPATHOLOGY REPORT Reports generated via electronic interface contain original data; however they are lacking the format of the original report. Caution should be taken when reading/interpreti ng unformatted reports. Name: ? MALU DE ? Accession #: ? [id number] : ? 1975 (Age: 29) ??F ?Collect Date: ? 12/15/2004 Location: ? [facility] ? Receive Date: ? 12/17/2004 Provider: ?FLORENTINO WHITFIELD MD Copy to: ? Specimen/Source: ?ThinPrep Pap Test, Cervix/Endocervix Last Menstrual Period: ? 11/19/04 Hormonal/Contracep tive Status: ? Tubal ligation Previous Gynecologic Pathology: ? LSIL: 07/12 cannot R/O HSIL Other: ? Additional clinical information: 04/12 pap WNL ? SPECIMEN ADEQUACY ? Satisfactory for Evaluation - transformation zone component present GENERAL CATEGORIZATION ? Negative for Intraepithelial Lesion or Malignancy INTERPRETATION ? Shift in timothy present suggestive of bacterial vaginosis. ? Document reviewed and electronically signed by: ? Ca Eaton, SCT(ASCP) ? Report Date: ??12/21/2004 12:05 End of Report [facility] 12/15/2004 12/17/2004 Florentino Whitfield MD PATHOLOGY ORDERABLES Performing Organization Address City/State/[facility] Co de Phone Number [facility] [address] [place] [address] documented in this encounter Visit Diagnoses Not on filedocumented in this encounter
--- OUTSIDE RECORDS SUMMARY | 2024-05-14 03:39 | XMS_ITS | Encounter Summary ---
Author Organization [facility] Address [address] [place] [address] Care Team Providers Care Sock Ironer Name Role Phone Unavailable Primary Care Provider Unavailabl e Encounter Details Date Type Department Care Team (Late st Contact Info) Description 06/03/2004 Results Only [facility] - [facility] conversion [address] [place] [address] Florentino Whitfield MD [address] [place], [place] [phone] Social History Tobacco Use Types Packs/Day Years Used Date Smoking Tobacco: Never Assessed Sex and Gender Information Value Date Recorded Sex Assigned at Not on file Gender Identity Not on file Sexual Orientation Not on file documented as of this encounter Plan of Treatment Not on file documented as of this encounter Procedures Procedure Name Priority Date/Time Associated Diagnosis Comments SURGICAL PATHOLOGY Routine 06/03/2004 0:00 EDT documented in this encounter Results * SURGICAL PATHOLOGY (06/03/2004 0:00 EDT) Pathology Report: SURGICAL PATHOLOGY REPORT Reports generated via electronic interface contain original data; however they are lacking the format of the original report. Caution should be taken when reading/interpreti ng unformatted reports. Name: ? MALU DE ? Accession #: ? [id number] ? : ? 1975 (Age: 28) ??F ? Collect Date: ? 06/03/2004 ? Location: ? [facility] ? Receive Date: ? 06/03/2004 ? Provider: FLORENTINO WHITFIELD MD Copy to: ZELALEM RIVERA MD ? Final Pathologic Diagnosis: ? Ovary, right, right oophorectomy: - Mature cystic teratoma (dermoid cyst). ??See comment. Comment: ? The dermoid cyst is composed of mature elements with no features of malignancy or immature elements noted. ??(Dr. Lemos)/[facility] Document reviewed and electronically signed by: MONA LEMOS MD Report ??Date: 06/05/2004 14:06 By the signature above, the attending physician certifies that he/she has personally conducted a gross and/or microscopic examination of the described specimens and rendered or confirmed the above diagnosis. Specimen(s) Received: ? Right ovary (portion) Clinical History: ? R ovarian mass (dermoid) Gross Description: ? Received in formalin labelled Santino and right ovary is a 67 gram, disrupted, 9.2 x 6.3 x 3.2 cm, attenuated, dilated, cystic ovary. ??The serosa is pink-purple to white with patchy areas of hemorrhagic foci. ??The specimen is bisected to reveal copious amounts of brown hair and 4.0 x 3.0 cm focus of hair growing from the stromal surface. ??The cyst lining is white-pink to meadows and focally hemorrhagic. ??Sectioning within this region reveals yellow adipose tissue within which is a 1.7 x 0.5 x 0.3 cm focus of firm, white bone. ??Adjacent to this site is a 2.0 x 1.1 x 0.4 cm, disrupted cystic structure which also contains hair and meadows-white, pasty contents. ??Health Promotion Educator sections to include ovarian lining, site of hair follicles, and disrupted cystic structure are submitted as (A1) to (A4). ??(Ewelina Rogers)/katina End of Report [facility] 06/03/2004 06/03/2004 15: 19 EDT Florentino Whitfield MD PATHOLOGY ORDERABLES Performing Organization Address City/State/[facility] Co de Phone Number [facility] [address] [place] [address] documented in this encounter Visit Diagnoses Not on filedocumented in this encounter
[2024-05-14 20:05] LABS: FREE T4 1.16 ng/dL (0.76-1.46); TSH 0.45 uIU/Ml (0.36-3.74)
== END 2024-05-14 03:34 | disposition home or self-care (01) ==
PROVIDERS: PCP Nurse Practitioner Family; Visit Provider Internal Medicine Endocrinology, Diabetes & Metabolism
DX: E03.9 Hypothyroidism, unspecified (principal)
CPT/HCPCS: 36415; 84439; 84443

== ENCOUNTER → 2024-05-16 11:26 | Outpatient (BNVA) | payer MEDICARE, MEDICAID, SELFPAY | PROVIDERS: PCP Nurse Practitioner Family; Referring Provider Nurse Practitioner Family; Visit Provider Internal Medicine Critical Care Medicine | DX: J45.50 Severe persistent asthma, uncomplicated (principal) | CPT/HCPCS: 96372 ==

== ENCOUNTER → 2024-06-12 15:08 | Outpatient (BNVA) | payer MEDICARE, MEDICAID, SELFPAY | PROVIDERS: PCP Nurse Practitioner Family; Referring Provider Nurse Practitioner Family; Visit Provider Physician Assistant Surgical | DX: J45.909 Unspecified asthma, uncomplicated (principal) | CPT/HCPCS: 99214 ==

== ENCOUNTER 2024-07-02 03:34 | Outpatient (CLI) | payer MEDICARE, MEDICAID, SELFPAY ==
[2024-07-02 14:26] LABS: Hemoglobin A1C 7.1 % (<5.7)
[2024-07-02 15:20] LABS: AST 22 U/L (15-37); Creatine Kinase 126 U/L (26-192)
[2024-07-04 18:18] LABS: Calculated LDL 136 mg/dL (<100); Cholesterol 223 mg/dL (<200); HDL Cholesterol 55 mg/dL (40-60); Triglyceride 161 mg/dL (<150)
== END 2024-07-02 03:35 | disposition home or self-care (01) ==
PROVIDERS: PCP Nurse Practitioner Family; Visit Provider Family Medicine
DX: E11.9 Type 2 diabetes mellitus without complications (principal); E78.5 Hyperlipidemia, unspecified
CPT/HCPCS: 36415; 80061; 82550; 83036; 84450

== ENCOUNTER 2024-07-10 03:44 | Outpatient (CLI) | payer MEDICARE, MEDICAID, SELFPAY ==
[2024-07-10 10:22] LABS: Calculated LDL 126 mg/dL (<100); Cholesterol 210 mg/dL (<200); HDL Cholesterol 56 mg/dL (40-60); Triglyceride 144 mg/dL (<150)
== END 2024-07-10 03:45 | disposition home or self-care (01) ==
LOC: LBO 03:45
PROVIDERS: PCP Nurse Practitioner Family; Visit Provider Family Medicine
DX: E78.5 Hyperlipidemia, unspecified (principal)
CPT/HCPCS: 36415; 80061

== ENCOUNTER → 2024-07-12 14:56 | Outpatient (BNVA) | payer MEDICARE, MEDICAID, SELFPAY | PROVIDERS: PCP Nurse Practitioner Family; Referring Provider Nurse Practitioner Family; Visit Provider Physician Assistant Surgical | DX: J45.50 Severe persistent asthma, uncomplicated (principal) | CPT/HCPCS: 96372 ==

== ENCOUNTER → 2024-08-13 14:10 | Outpatient (BNVA) | payer MEDICARE, MEDICAID, SELFPAY | PROVIDERS: PCP Nurse Practitioner Family; Referring Provider Nurse Practitioner Family; Visit Provider Physician Assistant Surgical | DX: J45.50 Severe persistent asthma, uncomplicated (principal) | CPT/HCPCS: 96372 ==

== ENCOUNTER 2024-08-15 03:25 | Outpatient (CLI) | payer MEDICARE, MEDICAID, SELFPAY ==
[2024-08-16 18:26] LABS: Adrenocorticotropic Hormone, P 32 pg/mL
[2024-08-18 16:09] LABS: Renin Activity, Plasma <0.6 ng/mL/h
== END 2024-08-15 03:26 | disposition home or self-care (01) ==
PROVIDERS: PCP Nurse Practitioner Family; Visit Provider Family Medicine
DX: R42 Dizziness and giddiness (principal)
CPT/HCPCS: 36415; 82533; 82024; 82088; 84244

== ENCOUNTER → 2024-09-10 13:40 | Outpatient (BNVA) | payer MEDICARE, MEDICAID, SELFPAY | PROVIDERS: PCP Nurse Practitioner Family; Referring Provider Nurse Practitioner Family; Visit Provider Physician Assistant Surgical | DX: J45.909 Unspecified asthma, uncomplicated (principal) | CPT/HCPCS: 96372 ==

== ENCOUNTER → 2024-10-09 14:05 | Outpatient (BNVA) | payer MEDICARE, MEDICAID, SELFPAY | PROVIDERS: PCP Nurse Practitioner Family; Referring Provider Nurse Practitioner Family; Visit Provider Physician Assistant Surgical | DX: J45.50 Severe persistent asthma, uncomplicated (principal) | CPT/HCPCS: 96372 ==

== ENCOUNTER 2024-10-31 00:50 | Outpatient (CLI) | payer MEDICARE, MEDICAID, SELFPAY ==
--- NOTE | 2024-10-31 12:30 | DI.US_ITS ---
APPROVED REPORT EXAM: Comprehensive 2D, Doppler, and color-flow Echocardiogram Patient Location: Out-Patient Household Worker: Shauna Eli RDCS (AE) Indications: Other forms of dyspnea Other Information Study Quality: Adequate Conclusion Normal left ventricular wall thickness and chamber size. Ejection fraction is 55%. Wall motion is n ormal. Diastolic function is normal Normal right ventricular size and function Both atria are normal in size There is no structural or hemodynamically significant valvular disease Wall motion Left Ventricle The left ventricle is normal size. The left ventricular systolic function is normal. The left ventric ular ejection fraction is within the normal range. There is normal left ventricular wall thickness. T here is normal LV segmental wall motion. There is no ventricular septal defect visualized. LVEF is 55 %. Right Ventricle The right ventricle is normal size. The right ventricular systolic function is normal. Atria The left atrium size is normal. The right atrium size is normal. The interatrial septum is intact wit h no evidence for an atrial septal defect. Aortic Valve The aortic valve is normal in structure. Aortic valve is trileaflet. There is no aortic valvular sten osis. No aortic regurgitation is present. Mitral Valve The mitral valve is normal in structure. No evidence of mitral valve stenosis. Trace mitral regurgita tion. Tricuspid Valve The tricuspid valve is normal in structure. There is no tricuspid valve stenosis. Trace tricuspid reg urgitation. Unable to assess PA pressure. Pulmonic Valve The pulmonary valve is normal in structure. There is no pulmonic valvular stenosis. Trace pulmonic re gurgitation. Great Vessels The aortic root is normal in size. The ascending aorta is normal in size. Aortic arch is normal in ca liber. IVC is normal in size and collapses >50% with inspiration. Pericardium There is no pericardial effusion. 2D Dimensions IVSD d PLAX 0.80 cm F: 0.6-1.0 Ao Root d 2.82 cm F: 2.7 - 3.3 LVPW d PLAX 0.84 cm F: 0.6 - 1.0 Ao Asc Diam d 2.67 cm F: 2.3 - 3.1 LVID d PLAX 4.40 cm F: 3.8 - 5.2 LVDs 3.17 cm F: 2.2 - 3.5 LV EF Teichholz 54.6 % FS 28.11 % LV EDV (Teich) 87.8 mL LV ESV (Teich) 39.9 mL M-Mode TAPSE 2.00 cm (M/F) >1.7 Auto EF LV EDV A4C 72.1 mL LV EDV A2C 94.8 mL LV EDV BP 84.2 mL LV ESV A4C 31.6 mL LV ESV A2C 43.1 mL LV ESV BP 38.0 mL LVEF(%) A4C 56.2 % LVEF(%) A2C 54.5 % LVEF(%) BP 54.8 % LV SV A4C 40.5 ml LV SV A2C 51.7 ml LV SV BP 46.2 ml LV CO A4C 3.2 L/min LV CO A2C 3.8 L/min LV CO BP 3.5 L/min HR A4C 78.27 BPM HR A2C 74.23 BPM LV EDV Index (BP) LA Volume LA Length A4C 4.2 cm LA Length A2C 4.6 cm LA Area A4C s 10.82 cm2 LA Area A2C s 13.53 cm2 LA Vol A4C A-L 23.91 mL LA Vol A2C A-L 33.74 mL LA Vol Biplane A-L 29.9 mL LA Vol/BSA A4C A-L LA Vol/BSA A2C A-L LA Vol/BSA BP A-L 16.1 mL/m2 LA Vol A4C MOD 22.1 mL LA Vol A2C MOD 32.2 mL LA Vol BP MOD 28.0 mL RA Volume RA Area A4C 10.2 cm2 RA ESV A4C (A-L) 22.2mL RA Vol/BSA A4C A-L RA Length A4C 4.0 cm RA ESV A4C (MOD) 20.4mL LV Diastology MV E' medial 0.077 (>0.07 m/s) MV E Vmax 0.50 (0.4-1.3 m/s) MV E/E' MED 6.50 (<14) MV A Vmax 0.55 (0.4-1.3 m/s) MV E' lateral 0.118 (>0.1 m/s) E/A Ratio 0.9 MV E/E' LAT 4.23 (<14) MV E' Average 0.097 m/s MV E/E'(average) 5.13 Aortic Valve AoV Vmax 1.21 m/s LVOT Vmax 0.73 m/s AoV Peak Grad 5.9 mmHg LVOT Peak Grad 2.2 mmHg AoV Area (Vmax) 1.69 cm2 LVOT VTI 0.121 m AoV VTI 0.235 m LVOT Mean Grad 1.3 mmHg AoV Mean Monty. 0.91 m/s LVOT SV 33.87 mL AoV Mean Grad 3.7 mmHg LVOT Diam s 1.85 cm AoV Area (VTI) 1.44 cm2 AV Regurg Peak Gr. 5.89 mmHg Velocity Ratio 0.60 Mitral Valve MV DT 381 (160-240 msec) MV Vmax TIPS 0.59 m/s MV Mean Grad 0.7 (<2mmHg) MV VTI 0.157 m Pulmonary Valve PV Vmax 0.57 (0.5-1.5 m/s) RVOT Vmax 0.49 m/s PV Peak Grad 1.3 mmHg RVOT Peak Gr. 1.0 mmHg PV Mean Monty 0.45 m/s RVOT VTI 0.124 m PV Mean Grad 0.9 mmHg RVOT Mean Gr. 0.5 mmHg Tricuspid Valve RA Pressure 3.00 mmHg TV S' 0.13 m/s
== END 2024-10-31 01:10 ==
PROVIDERS: Visit Provider Internal Medicine Cardiovascular Disease
DX: R06.09 Other forms of dyspnea (principal)
CPT/HCPCS: 93306

== ENCOUNTER → 2024-11-08 10:47 | Outpatient (BNVA) | payer MEDICARE, MEDICAID, SELFPAY | PROVIDERS: PCP Family Medicine; Referring Provider Nurse Practitioner Family; Visit Provider Physician Assistant Surgical | DX: J45.50 Severe persistent asthma, uncomplicated (principal) | CPT/HCPCS: 96372 ==

== ENCOUNTER 2024-12-03 03:06 | Outpatient (CLI) | payer MEDICARE, MEDICAID, SELFPAY ==
[2024-12-03 14:56] LABS: FREE T4 1.72 ng/dL (0.76-1.46); TSH 0.43 uIU/mL (0.36-3.74)
== END 2024-12-03 03:07 | disposition home or self-care (01) ==
LOC: LBO 03:06
PROVIDERS: PCP Family Medicine; Visit Provider Internal Medicine Endocrinology, Diabetes & Metabolism
DX: E06.3 Autoimmune thyroiditis (principal)
CPT/HCPCS: 36415; 84439; 84443

== ENCOUNTER → 2024-12-04 13:29 | Outpatient (BNVA) | payer MEDICARE, MEDICAID, SELFPAY | PROVIDERS: PCP Family Medicine; Referring Provider Nurse Practitioner Family; Visit Provider Physician Assistant Surgical | DX: J45.50 Severe persistent asthma, uncomplicated (principal) | CPT/HCPCS: 96372; 99214 ==

== ENCOUNTER → 2025-01-07 08:39 | Outpatient (BNVA) | payer MEDICARE, MEDICAID, SELFPAY | PROVIDERS: PCP Family Medicine; Referring Provider Family Medicine; Visit Provider Physician Assistant Surgical | DX: J45.50 Severe persistent asthma, uncomplicated (principal) | CPT/HCPCS: 96372 ==

== ENCOUNTER → 2025-02-04 15:04 | Outpatient (BNVA) | payer MEDICARE, MEDICAID, SELFPAY | PROVIDERS: PCP Family Medicine; Referring Provider Family Medicine; Visit Provider Physician Assistant Surgical | DX: J45.50 Severe persistent asthma, uncomplicated (principal) | CPT/HCPCS: 96372 ==

== ENCOUNTER → 2025-03-05 15:10 | Outpatient (BNVA) | payer MEDICARE, MEDICAID, SELFPAY | PROVIDERS: PCP Family Medicine; Referring Provider Family Medicine; Visit Provider Physician Assistant Surgical | DX: J45.50 Severe persistent asthma, uncomplicated (principal) | CPT/HCPCS: 96372 ==

== ENCOUNTER 2025-03-06 02:16 | Outpatient (CLI) | payer MEDICARE, MEDICAID, SELFPAY ==
[2025-03-06 13:33] LABS: ALT 64 U/L (14-59); AST 32 U/L (15-37); Albumin 3.9 g/dL (3.4-5.0); Alkaline Phosphatase 68 U/L (46-116); Anion Gap 6.7 mmol/L (3-11); BUN 14 mg/dL (7-18); Bilirubin, Total 0.4 mg/dL (0.2-1.0); CO2 27.3 mmol/L (21.0-32.0); CREATININE 0.7 mg/dL (0.55-1.02); Calcium 9.2 mg/dL (8.5-10.1); Chloride 106 mmol/L (98-107); Estimated GFR 106.62 (mL/min/1.73m2); Glucose 146 mg/dL (74-106); Potassium 4.3 mmol/L (3.5-5.1); Sodium 140 mmol/L (136-145); Total Protein 7.2 g/dL (6.4-8.2)
[2025-03-06 13:40] LABS: FREE T4 1.55 ng/dL (0.76-1.46); TSH 0.03 uIU/mL (0.36-3.74)
[2025-03-06 22:21] LABS: T3, Total 116 ng/dL (97-169)
[2025-03-11 16:27] LABS: T3 (Triiodothyronine) Reverse 27 ng/dL (10-24)
== END 2025-03-06 02:17 | disposition home or self-care (01) ==
LOC: LBO 02:16
PROVIDERS: PCP Family Medicine; Visit Provider Internal Medicine Endocrinology, Diabetes & Metabolism
DX: E03.9 Hypothyroidism, unspecified (principal); E11.9 Type 2 diabetes mellitus without complications; E04.9 Nontoxic goiter, unspecified; E06.3 Autoimmune thyroiditis; R53.83 Other fatigue
CPT/HCPCS: 36415; 80053; 84439; 84443; 84480; 84482

== ENCOUNTER → 2025-04-03 15:11 | Outpatient (BNVA) | payer MEDICARE, MEDICAID, SELFPAY | PROVIDERS: PCP Family Medicine; Referring Provider Family Medicine; Visit Provider Physician Assistant Surgical | DX: J45.50 Severe persistent asthma, uncomplicated (principal) | CPT/HCPCS: 96372 ==

== ENCOUNTER → 2025-05-01 15:10 | Outpatient (BNVA) | payer MEDICARE, MEDICAID, SELFPAY | PROVIDERS: PCP Family Medicine; Referring Provider Family Medicine; Visit Provider Physician Assistant Surgical | DX: J45.50 Severe persistent asthma, uncomplicated (principal) | CPT/HCPCS: 96372 ==

== ENCOUNTER 2025-05-14 03:43 | Outpatient (CLI) | payer MEDICARE, MEDICAID, SELFPAY ==
[2025-05-14 15:38] LABS: HCT 45.4 % (36.0-46.0); HGB 14.9 g/dL (11.2-15.7); MCH 28.8 pg (27.0-33.0); MCHC 32.8 % (32.0-36.0); MCV 88 fL (80-95); MPV 9.7 fL (8.0-11.0); Platelet Count 268 10^3/uL (130-400); RBC 5.18 10^6/uL (3.93-5.22); RDW 13.2 % (11.7-14.6); RDW-SD 42.8 fL; WBC 6.52 10^3/uL (4.4-10.8)
[2025-05-14 16:36] LABS: ALT 39 U/L (14-59); AST 22 U/L (15-37); Albumin 3.9 g/dL (3.4-5.0); Alkaline Phosphatase 69 U/L (46-116); Anion Gap 7.6 mmol/L (3-11); BUN 13 mg/dL (7-18); Bilirubin, Total 0.5 mg/dL (0.2-1.0); CO2 27.4 mmol/L (21.0-32.0); Calcium 9.2 mg/dL (8.5-10.1); Chloride 104 mmol/L (98-107); Estimated GFR 106.62 (mL/min/1.73m2); Glucose 118 mg/dL (74-106); Potassium 4.1 mmol/L (3.5-5.1); Sodium 139 mmol/L (136-145); Total Protein 7.3 g/dL (6.4-8.2); Vitamin B12 523 pg/mL (193-986)
[2025-05-14 17:09] LABS: Iron 55 ug/dL (50-170)
[2025-05-14 18:01] LABS: TSH 1.97 uIU/mL (0.36-3.74)
[2025-05-14 23:23] LABS: T3, Total 97 ng/dL (97-169)
[2025-05-15 10:42] LABS: Hepatitis C Ab w Rflx HCV PCR Negative (Negative)
[2025-05-20 17:36] LABS: T3 (Triiodothyronine) Reverse 24 ng/dL (10-24)
== END 2025-05-14 03:44 | disposition home or self-care (01) ==
PROVIDERS: PCP Family Medicine; Visit Provider Internal Medicine Endocrinology, Diabetes & Metabolism
DX: E03.9 Hypothyroidism, unspecified (principal); Z86.2 Personal history of diseases of the blood and blood-forming organs and certain disorders involving the immune mechanism
CPT/HCPCS: 36415; 80053; 85027; 86803; 82607; 83540; 84439; 84443; 84480; 84482; 86376; 86800

== ENCOUNTER → 2025-05-30 14:40 | Outpatient (BNVA) | payer MEDICARE, MEDICAID, SELFPAY | PROVIDERS: PCP Family Medicine; Referring Provider Family Medicine; Visit Provider Physician Assistant Surgical | DX: J45.50 Severe persistent asthma, uncomplicated (principal) | CPT/HCPCS: 96372 ==

== ENCOUNTER 2025-06-11 10:06 | Outpatient (CLI) | payer MEDICARE, MEDICAID, SELFPAY ==
[2025-06-11 11:49] LABS: TSH 2.82 uIU/mL (0.36-3.74)
[2025-06-11 19:30] LABS: T3, Total 96 ng/dL (97-169)
[2025-06-17 10:21] LABS: T3 (Triiodothyronine) Reverse 25 ng/dL (10-24)
== END 2025-06-11 10:07 | disposition home or self-care (01) ==
LOC: LBO 10:07
PROVIDERS: PCP Family Medicine; Visit Provider Internal Medicine Endocrinology, Diabetes & Metabolism
DX: E03.9 Hypothyroidism, unspecified (principal); E06.3 Autoimmune thyroiditis
CPT/HCPCS: 36415; 84439; 84443; 84480; 84482; 86376; 86800

== ENCOUNTER → 2025-06-27 15:41 | Outpatient (BNVA) | payer MEDICARE, MEDICAID, SELFPAY | PROVIDERS: PCP Family Medicine; Referring Provider Family Medicine; Visit Provider Physician Assistant Surgical | DX: J45.50 Severe persistent asthma, uncomplicated (principal) | CPT/HCPCS: 96372 ==

== ENCOUNTER → 2025-07-29 12:40 | Outpatient (BNVA) | payer MEDICARE, MEDICAID, SELFPAY | PROVIDERS: PCP Family Medicine; Referring Provider Family Medicine; Visit Provider Physician Assistant Surgical | DX: J45.909 Unspecified asthma, uncomplicated (principal); Z23 Encounter for immunization | CPT/HCPCS: 96372; 99212 ==

== ENCOUNTER 2025-08-13 01:21 | Outpatient (CLI) | payer MEDICARE, MEDICAID, SELFPAY ==
[2025-08-13 14:14] LABS: TSH 0.17 uIU/mL (0.36-3.74)
[2025-08-13 23:11] LABS: T3, Total 103 ng/dL (82-158)
[2025-08-19 09:47] LABS: T3 (Triiodothyronine) Reverse 23 ng/dL (10-24)
== END 2025-08-13 01:22 | disposition home or self-care (01) ==
PROVIDERS: PCP Family Medicine; Visit Provider Internal Medicine Endocrinology, Diabetes & Metabolism
DX: E06.3 Autoimmune thyroiditis (principal)
CPT/HCPCS: 36415; 84439; 84443; 84480; 84482

== ENCOUNTER 2025-08-31 20:26 | Emergency (ER) | payer MEDICARE, MEDICAID, SELFPAY ==
[2025-08-31 20:30] VITALS: BP 144/80; PULSE 65; RESP 16; TEMP 36.5; O2SAT 97
--- NOTE | 2025-08-31 20:30 | RT.EKG_ITS ---
APPROVED REPORT Exam: Resting ECG Reason for Exam: Palpitations Patient Location: E HR:65 bpm ECG Measurements Heart Rate 65 AXIS SC 125 P 71 QRSd 102 QRS 65 QT 420 T -56 QTc 439 Conclusion Sinus rhythm...normal P axis, V-rate 60- 99 Nonspecific T abnormalities, anterior leads...T <-0.10mV, V2-V4 Normal [place]/Interval
--- NOTE | 2025-08-31 21:24 | W.ED.GENAD ---
Discharge Plan Discharge Details Chief Complaint: Diabetes Primary Care Provider: Zena Hughes V ED Provider: Kaylah Horton Home Meds and New Rx's Prescriptions: No Action pravastatin 10 mg tablet 10 mg PO DAILY Qty: 90 4RF Mounjaro 2.5 mg/0.5 mL pen injector 7.5 mg subcut QWEEK Rx Instructions: for 4 weeks pantoprazole 40 mg tablet,delayed release (DR/EC) 40 mg PO HS B Complex Plus Vitamin C 14-17-63-5-300 mg capsule 1 cap PO DAILY Rx Instructions: give with food (meal/snack) multivitamin Tablet 1 tab PO DAILY levothyroxine 100 mcg capsule 100 mcg PO DAILY naltrexone 1.5 mg capsule 3 mg PO HS ondansetron HCl [Zofran] 4 mg tablet 4 mg PO DAILY PRN Spiriva Respimat 2.5 mcg/actuation mist 2 inh inhalation DAILY (DME) nebulizers Kit See Rx Instructions .Route Rx Instructions: As directed naproxen [Naprosyn] 500 mg tablet 500 mg PO BID cetirizine 10 mg tablet 10 mg PO DAILY PRN cholecalciferol (vitamin D3) 25 mcg (1,000 unit) capsule 2,000 unit PO DAILY Tezspire 210 mg/1.91 mL (110 mg/mL) syringe 210 mg subcut Q4W Qty: 1.91 12RF metformin 500 mg tablet 500 mg PO DAILY montelukast [Singulair] 10 MG tablet 10 mg PO HS triamcinolone acetonide [Nasacort] 55 mcg aerosol,spray 1 spray Inhalation DAILY Rx Instructions: one spray each nostril fluticasone furoate-vilanterol [Breo Ellipta] 1 EACH blister with device 1 puff Inhalation DAILY albuterol sulfate 2.5 MG/3 ML solution for nebulization 2.5 mg Inhalation PRN PRN multivitamin [Multiple Vitamins] Tablet 1 tab PO DAILY Qty: 0 0RF HPI General Date/Time Provider Initiated Documentation: 08/31/25 20:40. HPI Narrative: Malu is a 49-year-old female with history of T2DM, lichen planus, Misa's thyroiditis, severe asthma, and hypermobility syndrome who presents to the emergency department today for evaluation of elevated blood sugars. She reports that she has been treated for severe lichen planus in her mouth and throat for the last 6 days with prednisone taper, today noted her blood sugars have been greater than 500. For last couple of days she has noted that she has been jittery, had palpitations with occasional right-sided sharp chest discomfort, headache, increased thirst, and increased urine output. Denies recent illness such as fever/chills, congestion, cough, nausea/vomiting, abdominal pain, dysuria, diarrhea. She has been well-controlled on Mounjaro, but was taken off of this as it contributed as a cause of her lichen planus. She has recently just been taking 500 mg metformin twice daily. She has severe asthma, uses 8-10 nebulizers daily. Lately has been feeling like she has had increased shortness of breath. Related Data Home Medications Medication Instructions Recorded Confirmed montelukast 10 mg tablet 10 mg PO HS 07/05/15 07/30/25 (Singulair) fluticasone furoate 200 1 puff inhalation DAILY 01/26/16 07/30/25 mcg-vilanterol 25 mcg/dose inhalation powder (Breo Ellipta) albuterol sulfate 2.5 mg/3 mL 2.5 mg inhalation PRN PRN 03/17/18 07/30/25 (0.083 %) solution for nebulization multivitamin (Multiple Vitamins 1 tab PO DAILY #0 tabs 09/26/18 07/30/25 tablet) ondansetron HCl 4 mg tablet 4 mg PO DAILY PRN 07/28/21 07/30/25 (Zofran) tiotropium bromide 2.5 2 inh inhalation DAILY 07/28/21 07/30/25 mcg/actuation mist for inhalation (Spiriva Respimat) pravastatin 10 mg tablet 10 mg PO DAILY #90 tabs 09/21/21 07/30/25 naproxen 500 mg tablet (Naprosyn) 500 mg PO BID 03/01/22 07/30/25 nebulizers 03/01/22 07/30/25 cetirizine 10 mg tablet 10 mg PO DAILY PRN 08/25/22 07/30/25 cholecalciferol (vitamin D3) 25 2,000 unit PO DAILY 03/01/23 07/30/25 mcg (1,000 unit) capsule triamcinolone acetonide 55 mcg 1 spray inhalation DAILY 03/01/23 07/30/25 nasal spray aerosol (Nasacort) pantoprazole 40 mg tablet,delayed 40 mg PO HS 06/02/23 07/30/25 release vitamin B comp and C no.3 15 mg-10 1 cap PO DAILY 07/11/23 07/30/25 mg-50 mg-5 mg-300 mg capsule (B Complex Plus Vitamin C) levothyroxine 100 mcg capsule 100 mcg PO DAILY 10/26/23 07/30/25 multivitamin 1 tab PO DAILY 10/26/23 07/30/25 naltrexone 1.5 mg capsule 3 mg PO HS 11/10/23 07/30/25 tezepelumab-ekko 210 mg/1.91 mL 210 mg (1.91 mL) subcut Q4W #1.91 11/19/24 07/30/25 (110 mg/mL) subcutaneous syringe mL (Tezspire) metformin 500 mg tablet 500 mg PO DAILY 05/30/25 07/30/25 tirzepatide 2.5 mg/0.5 mL 7.5 mg subcut QWEEK 05/30/25 07/30/25 subcutaneous pen injector (Arpitunjessicaro) Previous Rx's Medication Instructions Recorded multivitamin (Multiple Vitamins 1 tab PO DAILY #0 tabs 09/26/18 tablet) pravastatin 10 mg tablet 10 mg PO DAILY #90 tabs 09/21/21 tezepelumab-ekko 210 mg/1.91 mL 210 mg (1.91 mL) subcut Q4W #1.91 11/19/24 (110 mg/mL) subcutaneous syringe mL (Tezspire) Allergies Allergy/AdvReac Type Severity Reaction Status Date / Time acetaminophen Allergy Severe Blisters Verified 07/29/25 12:46 face and hands benralizumab (From Fasenra) Allergy Severe Other (See Verified 07/29/25 12:46 Comment) celecoxib (From Celebrex) Allergy Severe Other (See Verified 07/29/25 12:46 Comment) cyclobenzaprine Allergy Severe Blisters Verified 07/29/25 12:46 hands and face duloxetine (From Cymbalta) Allergy Severe Other (See Verified 07/29/25 12:46 Comment) gabapentin Allergy Severe Other (See Verified 07/29/25 12:46 Comment) hydrocodone bitartrate (From Allergy Severe Blisters Verified 07/29/25 12:46 Vicodin) hands and face indomethacin Allergy Severe Blisters Verified 07/29/25 12:46 hands and face amitriptyline Allergy Intermediate Other (See Verified 07/29/25 12:46 Comment) dupilumab (From Dupixent Pen) Allergy Intermediate Other (See Verified 07/29/25 12:46 Comment) formoterol (From Dulera) Allergy Intermediate Other (See Verified 07/29/25 12:46 Comment) milnacipran (From Savella) Allergy Intermediate Other (See Verified 07/29/25 12:46 Comment) mometasone furoate (From Allergy Intermediate Other (See Verified 07/29/25 12:46 Dulera) Comment) tramadol Allergy Mild Other (See Verified 07/29/25 12:46 Comment) environmental AdvReac Intermediate asthma Uncoded 07/29/25 12:46 exacerbation trulicity AdvReac Unknown Swelling/Ed Uncoded 07/29/25 12:46 ginny General Stated Complaint: Diabetes GEORGE: 3 Exam Const General: cooperative, healthy appearing and comfortable Nutritional Appearance: average body habitus Orientation: alert and oriented x3 HENMT Head: normal to inspection Ears: hearing grossly normal bilaterally General nose exam: external nose normal Mouth: oral mucosa abnormal (tacky mucous membranes) Resp Effort & Inspection: normal respiratory effort and able to speak in complete sentences Auscultation: clear to auscultation bilaterally Cardio Rate: regular rate Rhythm: regular rhythm GI Inspection: normal to inspection Palpation: soft and nontender General: No CVA tenderness Neuro General: patient alert, patient oriented x3, tone normal and moves all extremities Course Vital Signs Vital signs: Vital Signs Temperature 36.5 C 08/31/25 20:30 Pulse 65 08/31/25 20:30 Respiratory Rate 16 08/31/25 20:30 Blood Pressure 144/80 H 08/31/25 20:30 Pulse Oximetry 97 08/31/25 20:30 Temperature 36.5 C 08/31/25 20:30 Temperature Source Oral 08/31/25 20:30 Pulse 65 08/31/25 20:30 Respiratory Rate 16 08/31/25 20:30 Blood Pressure 144/80 H 08/31/25 20:30 Blood Pressure Position Sitting 08/31/25 20:30 Pulse Oximetry 97 11/22/25 20:30 Oxygen Delivery Method Room Air 08/31/25 20:30 Oxygen Flow Rate 0 08/31/25 20:30 Medical Decision Making Malu is a 49-year-old female with history of T2DM, lichen planus, Misa's thyroiditis, severe asthma, and hypermobility syndrome who presents to the emergency department today for evaluation of elevated blood sugars. She reports that she has been treated for severe lichen planus in her mouth and throat for the last 6 days with prednisone taper, today noted her blood sugars have been greater than 500. For last couple of days she has noted that she has been jittery, had palpitations with occasional right-sided sharp chest discomfort, headache, increased thirst, and increased urine output. Denies recent illness such as fever/chills, vision changes, congestion, cough, vomiting, abdominal pain, dysuria, diarrhea, extremity weakness. She has been well-controlled on Mounjaro, but was taken off of this as it contributed as a cause of her lichen planus. She has recently just been taking 500 mg metformin twice daily. She has severe asthma, uses 8-10 nebulizers daily. Lately has been feeling like she has had increased shortness of breath. Exam remarkable for tacky mucous membranes. Patient is alert and oriented, no acute distress. Easy work of breathing, lung sounds clear bilaterally. Normal heart sounds. Abdomen soft, nondistended, nontender palpation. No CVA tenderness. DDx includes but is not limited to: DKA/HHS, cardiac arrhythmia, ACS, steroid-induced hyperglycemia, electrolyte imbalance, severe dehydration, occult infection, BUD, hyperthyroid I independently interpreted the following tests: EKG unremarkable, normal sinus rhythm rate 65, no changes consistent with ischemia. Lactate 3.5. CBC, CMP, T4, beta hydroxybutyrate, VBG reassuring. Troponin negative, no repeat indicated. No acute abnormality noted on chest x-ray, this was confirmed by radiologist. While in the emergency department Malu received 2 L normal saline for rehydration, reports her jitteriness has improved significantly she is feeling much better overall. Handoff report given to Dr. Schroeder, overnight attending. Repeat lactate pending. Imaging Data Radiologic Study: Radiologist's impression: PROCEDURE INFORMATION: Exam: XR Chest Exam date and time: 08/31/2025 10:23 PM Age: 49 years old Clinical indication: Other: Palpations TECHNIQUE: Imaging protocol: Radiologic exam of the chest. Views: 2 views. COMPARISON: CR XR CHEST 2V PA LATERAL 04/01/2021 1:09 PM FINDINGS: Lungs: Unremarkable. No consolidation. Pleural spaces: Unremarkable. No pleural effusion. No pneumothorax. Heart/Mediastinum: Unremarkable. No cardiomegaly. Bones/joints: Unremarkable. IMPRESSION: No acute findings. 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 Type 2 diabetes mellitus without complications (Acute) Hyperlipidemia, unspecified (Acute) Smoker (Acute) Asthma (Chronic) DVT prophylaxis (Acute) Depression (Chronic) Acute psychosis (Acute) GERD (gastroesophageal reflux disease) (Acute) Medical History (Updated 02/15/24 @ 00:08 by JOANA ESPOSITO) Gastropathy Neck pain Back pain Hypomagnesemia Pelvic pain Pain of right thumb Toe pain Blurred vision Candidiasis of genitalia in female Arthropathy of lumbosacral facet joint Daytime somnolence Palpitations Chest pain Sofy-Danlos syndrome Lumbar radiculopathy Obstructive sleep apnea Hair loss Hypothyroidism Rash Polycythemia Asthma Allergic rhinitis GERD (gastroesophageal reflux disease) Iron deficiency anemia Microcytic anemia Thalassemia Fibromyalgia Anxiety Chronic pain Joint pain Fatigue Surgical History (Updated 10/26/23 @ 12:19 by Yocasta Odom RN) H/O section History of bilateral tubal ligation also tumor removal off ovary EGD - MAC (03/17/18) Family History Maternal Grandmother Stroke Social History Smoking/Tobacco Use Status: Former Tobacco Use Smoking risk assessment performed?: Yes Alcohol Intake: never Drug use: Never Substance use type: does not use Household members: significant other and children Housing: house Current gender identity: female Do you feel safe at home: Yes Do you feel safe in your relationship?: Yes History History Para 2 Hx # Term Pregnancies Multiple births Hx # Pregnancies Ectopic pregnancies AB induced Hx Number of Living Children AB spontaneous
[2025-08-31 21:25] LABS: BE (Venous) 2 mmol/L (-2-3); HCO3 (Venous) 27 mmol/L (23-28); O2 Sat (Venous) 74 %; TCO2 (Venous) 24 mmol/L (24-29); pCO2 (Venous) 45 mmHg (41-51); pO2 (Venous) 39 mmHg
[2025-08-31 21:26] LABS: Lab Add On Test DONE
[2025-08-31 21:26] LABS: Abs Immature Grans 0.11 10^3/uL (0.0-0.06); HCT 43.0 % (36.0-46.0); HGB 14.2 g/dL (11.2-15.7); Immature Grans % 1.7 %; MCH 28.6 pg (27.0-33.0); MCHC 33.0 % (32.0-36.0); MCV 87 fL (80-95); MPV 10.1 fL (8.0-11.0); Platelet Count 289 10^3/uL (130-400); RBC 4.96 10^6/uL (3.93-5.22); RDW 13.3 % (11.7-14.6); RDW-SD 41.8 fL; WBC 6.61 10^3/uL (4.4-10.8)
[2025-08-31 21:26] LABS: Lab Add On Test DONE
[2025-08-31 21:26] LABS: Lab Add On Test DONE
[2025-08-31 21:44] LABS: Magnesium 1.9 mg/dL (1.6-2.6)
[2025-08-31 21:48] LABS: TSH (W/Ref FT4) 0.04 uIU/mL (0.55-4.78)
[2025-08-31 21:51] LABS: Beta Hydroxybutyrate 0.11 mmol/L (0.02-0.27)
[2025-08-31] MEDS: Normal Saline 1,000 ML 1000 ML IV ×2 (21:52→23:16)
[2025-08-31 21:55] LABS: ALT 34 U/L (10-49); AST 17 U/L (<34); Albumin 4.5 g/dL (3.4-5.0); Alkaline Phosphatase 63 U/L (46-116); Anion Gap 11.5 mmol/L (3-11); BUN 13 mg/dL (9-23); Bilirubin, Total 0.60 mg/dL (0.2-1.2); CO2 26.5 mmol/L (20.0-31.0); Calcium 9.7 mg/dL (8.3-10.6); Chloride 101 mmol/L (98-107); Glucose 357 mg/dL (74-106); Potassium 4.0 mmol/L (3.5-5.1); Sodium 139 mmol/L (136-145); Total Protein 7.2 g/dL (5.7-8.2); Troponin I < 3 ng/L (<35)
--- NOTE | 2025-08-31 22:33 | DI.RAD_ITS ---
Exam(s) XR CHEST 2V PA LATERAL EXAM: XR CHEST 2V PA LATERAL CLINICAL HISTORY: palpitations TECHNIQUE: 2D digital imaging was performed. Two views. COMPARISON: CR XR CHEST 2V PA LATERAL from 04/01/2021 FINDINGS: HEART: Normal size. Aorta: Not dilated. PULMONARY VASCULATURE: Normal. MEDIASTINUM: Unremarkable. LUNGS: Clear. PLEURAL SPACE: No pleural effusion or pneumothorax. BONE:Unremarkable for age. SOFT TISSUES: Unremarkable. IMPRESSION: No acute abnormality. The preliminary [facility] report was reviewed. DATA REPOSITORY: RADIATION DOSE DELIVERED:
--- NOTE | 2025-08-31 22:49 | DI.[facility]_ITS ---
PROCEDURE INFORMATION: Exam: XR Chest Exam date and time: 08/31/2025 10:23 PM Age: 49 years old Clinical indication: Other: Palpations TECHNIQUE: Imaging protocol: Radiologic exam of the chest. Views: 2 views. COMPARISON: CR XR CHEST 2V PA LATERAL 04/01/2021 1:09 PM FINDINGS: Lungs: Unremarkable. No consolidation. Pleural spaces: Unremarkable. No pleural effusion. No pneumothorax. Heart/Mediastinum: Unremarkable. No cardiomegaly. Bones/joints: Unremarkable. IMPRESSION: No acute findings. Dictated and Authenticated by: Chandra Goncalves MD. Orderin Rajwinder Adrian MD
[2025-08-31 23:34] VITALS: BP 119/66; PULSE 61; RESP 16; TEMP 36.4; O2SAT 99
[2025-09-01 01:09] LABS: Glucose 500 mg/dL (Negative)
== END 2025-09-01 02:33 | disposition home or self-care (01) ==
PROVIDERS: Nurse Practitioner Family; Emergency Provider Emergency Medicine; PCP Family Medicine
DX: E11.65 Type 2 diabetes mellitus with hyperglycemia (principal)
CPT/HCPCS: 36415; 36416; 80053; 81025; 82010; 82805; 82962; 93005; 96360; 96361; 99284; 71046; 81003; 83605; 83735; 84439; 84443; 84484; 85025; 93010

== ENCOUNTER 2025-09-04 02:14 | Outpatient (CLI) | payer MEDICARE, MEDICAID, SELFPAY ==
[2025-09-04 10:44] LABS: Hemoglobin A1C 6.3 % (<5.7)
[2025-09-04 17:18] LABS: Lactic Acid (UVM) 1.6 mmol/L (<=2.0)
== END 2025-09-04 02:15 | disposition home or self-care (01) ==
PROVIDERS: PCP Family Medicine; Visit Provider Nurse Practitioner Family
DX: E11.65 Type 2 diabetes mellitus with hyperglycemia (principal); R79.89 Other specified abnormal findings of blood chemistry
CPT/HCPCS: 36415; 83036; 83605

== ENCOUNTER → 2025-09-09 14:56 | Outpatient (BNVA) | payer MEDICARE, MEDICAID, SELFPAY | PROVIDERS: PCP Family Medicine; Referring Provider Family Medicine; Visit Provider Internal Medicine Pulmonary Disease | DX: Z23 Encounter for immunization (principal); J45.50 Severe persistent asthma, uncomplicated; Z87.891 Personal history of nicotine dependence | CPT/HCPCS: 99212; 90471; 96372 ==

== ENCOUNTER 2025-09-20 17:05 | Outpatient (REF) | payer MEDICARE, MEDICAID, SELFPAY ==
[2025-09-20 18:18] LABS: Microalb ug/mg Crea 4.3 ug/mg Cr
== END 2025-09-20 17:06 | disposition home or self-care (01) ==
LOC: NCHCN 17:05
PROVIDERS: PCP Family Medicine; Visit Provider Family Medicine
DX: E11.65 Type 2 diabetes mellitus with hyperglycemia (principal)
CPT/HCPCS: 82043; 82570

== ENCOUNTER → 2025-10-09 11:24 | Outpatient (BNVA) | payer MEDICARE, MEDICAID, SELFPAY | PROVIDERS: PCP Family Medicine; Referring Provider Family Medicine; Visit Provider Internal Medicine Pulmonary Disease | DX: J45.50 Severe persistent asthma, uncomplicated (principal); Z23 Encounter for immunization; Z87.891 Personal history of nicotine dependence | CPT/HCPCS: 90471; 96372 ==